=== PATIENT | male | born 1945 | race Caucasian/White ===

== ENCOUNTER 2017-12-07 06:53 | Day surgery (SDC) | payer MEDICARE, SELFPAY ==
[2017-12-07] VITALS (7 sets, daily range): BP systolic 104–158; BP diastolic 41–81; PULSE 60–70; RESP 16–18; TEMP 36.6–36.8; O2SAT 93–98; BMI 31.4
--- NOTE | 2017-12-07 | COLBX_PTH ---
PATIENT: KRYSTIAN CHILD LOC: EN U#:[id number] AGE/SX: 72/M ROOM: RE12/07/[address]: Dr. Bobby Felipe MD : 1945 BED: DIS: 12/07/2017 SPEC #: [id number] RECD: 12/07/17 14:33 STATUS: SHAMIKA REMaximiliano #: [id number] ALAN: 12/07/17 00:[address]: Bobby Felipe DEPT: SURGICAL PATHOLOGY RECD BY: Mike Rivera ENTERED: 12/07/17 14:34 SP TYPE: COLON BX OTHR DR: Dr. Florentin Marino DO Tissues: Rectum, NOS Procedures: Surgery Specimen Level IV HEADER OPERATION: Colonoscopy PRE-OP DIAGNOSIS: History colon polyps, family history colon cancer TISSUE SUBMITTED: Rectal polyp biopsy MICROSCOPIC DIAGNOSIS Rectal polyp, biopsy: Hyperplastic polyp. SJ:haresh 12/08/17 MICROSCOPIC DESCRIPTION Slides are reviewed. GROSS DESCRIPTION Received in fixative is one container labeled with the patient's name and designated biopsy rectum. The specimen consists of one irregular fragment of light hurley soft tissue that measures 0.5 x 0.3 x 0.1 cm. The specimen is totally submitted in one cassette. / SJ:haresh 12/07/17 TC:5 CPT: 90993
--- NOTE | 2017-12-07 07:55 | PCM.OPRPT ---
Problem List (1) Personal history of colonic polyps Status: Acute (2) Family history of colon cancer in father Status: Acute Report of Operation Date of Procedure: 12/07/17 Pre-Operative Diagnosis: z86.010 history of colonic polyps. z80.0 family history of colon cancer in father Post-Operative Diagnosis: Same Surgery/Procedure Performed:: Colonoscopy with polypectomy Type of Anesthesia:: MAC Anesthesiologist: Jorge Pruitt Description of Procedure: Patient was brought into the endoscopy suite placed in the left lateral decubitus position was given graded anesthesia colonoscope was inserted into the rectum and directed through the sigmoid colon, descending colon, transverse colon, ascending colon, to the cecum. Operative findings: 1. Cecum: Normal appearance no mass lesions normal ileocecal valve. 2. Ascending colon: Normal appearance no mass lesions. 3. Transverse colon: Normal appearance no mass lesions. 4. Descending colon: Normal appearance no mass lesions. 5. Sigmoid colon: Normal appearance no mass lesions 6. Rectum: Normal appearance small hyperplastic polyp was identified was removed with biopsy forceps in its entirety he had a few internal hemorrhoids otherwise the rectum was entirely normal. Scope was withdrawn digital rectal exam was performed showing no masses within the prostate and a smooth anus. Patient will need to have another colonoscopy in 3 years. - Admit VTE Documentation VTE Present on Admission: No VTE Mechan Device Prophylaxis: None VTE Pharm Prophylaxis ordered?: No Reason prophylaxis not ordered:: Treatment Not Indicated
== END 2017-12-07 08:36 | disposition home or self-care (01) ==
LOC: EN 06:54 → AC 07:08
PROVIDERS: Family Provider Family Medicine; PCP Family Medicine; Visit Provider Surgery
PROC: 0DJD8ZZ Inspection of Lower Intestinal Tract, Via Natural or Artificial Opening Endoscopic (ICD-10-PCS; CPT 45378; principal; 2017-12-07 07:55)
DX: Z12.11 Encounter for screening for malignant neoplasm of colon (principal); D12.8 Benign neoplasm of rectum; K64.8 Other hemorrhoids; Z86.010 Personal history of colon polyps; Z85.828 Personal history of other malignant neoplasm of skin; Z87.891 Personal history of nicotine dependence; Z80.0 Family history of malignant neoplasm of digestive organs
CPT/HCPCS: 45380; 88305; J7120

== ENCOUNTER → 2018-06-04 10:38 | Outpatient (CLI) | payer MEDICARE, SELFPAY ==
[2017-12-07 07:13] VITALS: BMI 31.4
--- NOTE | 2018-06-04 10:45 | RAD_ITS ---
STUDY: X-RAY - CERVICAL SPINE REASON FOR EXAM: Male, 72 years old. Neck pain radiating into the shoulders TECHNIQUE: 5 view(s) of the cervical spine were obtained. COMPARISON: None FINDINGS: Normal anterior atlantoaxial articulation. Normal odontoid process. Normal cervical lordosis. There is multi-level endplate spondylosis. There is multi-level degenerative disc disease with multilevel disc space narrowing with disc space narrowing most conspicuous at C5-C6 and C6-C7. Degenerative spondylolisthesis of C4-C5 likely due to facet arthropathy, measuring 2 mm. There is moderate foraminal stenosis bilaterally, right more than left. There are atherosclerotic vascular calcifications of the carotid arteries. RAD/Cerv Spine 4 or 5 Views IMPRESSION: Degenerative disc disease and facet arthropathy with right more than left foraminal stenosis. Electronically Signed: Florentin Arellano MD at 15:39 EST , Service support ,
--- NOTE | 2018-06-04 10:45 | RAD_ITS ---
STUDY: X-RAY - LUMBAR SPINE REASON FOR EXAM: Male, 72 years old. Increasing lower back pain over the last several years TECHNIQUE: 5 view(s) of the lumbar spine were obtained. COMPARISON: None FINDINGS: Normal lumbar lordosis. There is a dextroscoliosis (29 degrees) of the lumbar spine. There is a normal alignment of the vertebrae. There is multilevel endplate spondylosis of the lumbar vertebrae. There is multi-level degenerative disc disease with multi-level disc space narrowing. Moderate facet arthropathy at multiple levels particularly in the lower segments. There is no demonstrated spondylolysis of the pars interarticulares. No compression fracture. There is atherosclerotic calcification of the abdominal aorta without a demonstrated aneurysm. RAD/L/S Spine Min 4 Views IMPRESSION: Multilevel degenerative disc disease, spondylosis and facet arthropathy. Scoliosis. Electronically Signed: Florentin Arellano MD at 15:34 EST , Service support ,
[2018-06-04 12:24] LABS: Erythrocyte Sedimentation Rate 27 mm/hr (0-20)
[2018-06-04 12:28] LABS: Absolute Lymphocyte Count 1.68 X10^3/ul (0.83-4.51); Basophil# 0.02 X10^3/uL; Basophil% 0.4 % (0-1); Eosinophil# 0.21 X10^3/uL; Eosinophils% 3.9 % (0-5); Hematocrit 44.6 % (40-54); Hemoglobin 15.4 g/dl (13.0-16.5); Lymphocyte # 1.68 X10^3/ul (4.0); Lymphocyte % 31.5 % (19-41); Mean Corp Hgb Conc 34.5 g/gl (32-36); Mean Corpuscular Hgb 31.9 pg (27.0-32.0); Mean Corpuscular Volume 92.3 fL (80-94); Mean Platelet Vol. 11.4 fl (6.2-12.0); Monocyte# 0.44 X10^3/uL; Monocyte% 8.3 % (0-10); Neutrophil # 2.98 X10^3/uL (2.7-7.7); Neutrophil % 55.9 % (47-70); Platelet Count 183 K/mm3 (150-450); RBC Distribution Width CV 13.2 % (11.6-14.6); RBC Distribution Width SD 43.7 fl (35.1-43.9); Red Blood Count 4.83 M/mm3 (4.6-6.2); White Blood Count 5.3 K/mm3 (4.4-11.0)
[2018-06-04 12:32] LABS: POSITIVE COUNT NO; POSITIVE DIFFERENTIAL NO; POSITIVE MORPHOLOGY NO
[2018-06-04 12:41] LABS: Hemoglobin A1c 5.9 % (4.2-6.3)
[2018-06-04 12:50] LABS: AST(SGOT) 16 U/L (15-37); Alanine Aminotransfer ALT/SGPT 28 U/L (16-61); Albumin, Serum 3.9 g/dL (3.2-5.0); Alkaline Phosphatase 57 U/L (45-117); Anion Gap 9 (5-15); BUN 16 mg/dL (7-18); BUN/Creat Ratio 13.9 RATIO (10-20); CPK Total, Creatine Kinase 151 U/L (39-308); CRP < 2.90 mg/L (0.0-3.0); Calcium,Total 9.4 mg/dL (8.5-10.1); Chloride 106 mmol/L (98-107); Cholesterol 216 mg/dL (200); Creatinine, Serum 1.15 mg/dL (0.70-1.30); EST Glomerular Filtration Rate 66 mL/min (>60); Est Glom Filt Rate - Afr Amer 80 mL/min (>60); Globulin 3.8 g/dL (2.2-4.2); Glucose 95 mg/dL (74-106); High Density Lipoprotein 33 mg/dL; Potassium 4.3 mmol/L (3.5-5.1); Protein, Total 7.7 g/dL (6.4-8.2); Sodium Level 140 mmol/L (136-145); Triglycerides 242 mg/dL; Very Low Density Lipoprotein 48 mg/dL (5-40)
[2018-06-08 08:08] LABS: Testosterone, Free 7.98 ng/dL (5.00-21.00)
[2018-06-10 09:24] LABS: Testosterone, % Free 1.75 % (1.50-4.20); Testosterone, Total 456 ng/dL (264-916)
== END ==
PROVIDERS: Family Provider Family Medicine; PCP Family Medicine; Referring Provider Family Medicine; Visit Provider Family Medicine
DX: M54.2 Cervicalgia (principal); M54.5 Low back pain; M25.50 Pain in unspecified joint; R25.2 Cramp and spasm; R10.9 Unspecified abdominal pain; R53.83 Other fatigue; E78.5 Hyperlipidemia, unspecified; R73.9 Hyperglycemia, unspecified
CPT/HCPCS: 36415; 72050; 72110; 80053; 80061; 82550; 83036; 84402; 84403; 85025; 85652; 86140

== ENCOUNTER → 2018-06-16 06:13 | Outpatient (CLI) | payer MEDICARE, SELFPAY ==
--- NOTE | 2018-06-16 12:31 | STRESSREP ---
Stress Test Report Pharmacologic myocardial perfusion stress test. 72-year-old man with a history of chest pain Stress protocol: Resting EKG demonstrates normal sinus rhythm with a rate of 63 bpm normal intervals are noted resting blood pressure 168/104 mmHg. 0.4 mg of regadenoson was infused per usual protocol followed by rapid intravenous saline flush injection continuous EKG monitoring was performed. The patient maintained sinus rhythm throughout the recording. At rest there were no ST or T wave changes noted suggest abnormal flow reserve the maximum heart rate was 141 bpm which was 96% of maximum predicted heart rate. Resting blood pressure was 160-104 mmHg final blood pressure 170/88 mmHg. The above is suggestive of resting hypertension present. Myocardial perfusion protocol. 14.6 mCi of technetium 99m sestamibi was injected at rest. 0.4 mg of regadenoson was infused per usual protocol. At peak infusion 44.5 mCi of technetium 99m sestamibi was injected stress images were obtained stress and rest images were reconstructed and compared in the short axis vertical and horizontal long axis. Gated images were also obtained Perfusion SPECT analysis: Review of the images demonstrate normal cardiac silhouette size. There appears to be normal uptake of tracer noted in all areas of myocardium except for the basal inferior wall. This appears to be present on the stress and rest images to a similar extent. There is some GI attenuation artifact noted there as well. There is minimal improvement on the stress images suggesting possible mild basal inferior ischemia. Gated SPECT analysis: The gated ejection fraction is noted to be normal. Conclusion: Mildly abnormal pharmacologic myocardial perfusion stress test with possible basal inferior ischemia. Preserved ejection fraction
--- OUTSIDE RECORDS SUMMARY | 2018-08-18 01:32 | XMS RPT_ITS ---
:1945 Author Organization OH[facility] Care Team Providers Name Role Phone Florentin Marino Attending Unavailable Florentin Marino Referring Unavailable Florentin Marino Primary Care Unavailable Florentin Marino Attending Unavailable Florentin Marino Referring Unavailable Florentin Marino Primary Care Unavailable Bobby Felipe Attending Unavailable Florentin Marino Referring Unavailable Florentin Marino Primary Care Unavailable Bobby Felipe Attending Unavailable Bobby Felipe Referring Unavailable Florentin Marino Primary Care Unavailable Bobby Felipe Attending Unavailable Florentin Marino Referring Unavailable Bobby Felipe Attending Unavailable Florentin Marino Referring Unavailable Bobby Felipe Attending Unavailable PROBLEMS PROBLEMS DATE TYPE CONDITION / CODE ATTENDING STATUS SOURCE 06/04/2018 Unknown M54.2 - Florentin Marino Active [facility] Cervicalgia / Community M54.2(ICD-10) Hospital Repository 06/04/2018 Unknown M54.5 - Low back Jamila, Florentin Active [facility] pain / Community M54.5(ICD-10) Hospital Repository 06/04/2018 Unknown M25.50 - Pain in Florentin Marino Active [place] unspecified joint Community / M25.50(ICD-10) Hospital Repository 06/04/2018 Unknown R25.2 - Cramp and Florentin Marino Active [facility] spasm / Community R25.2(ICD-10) Hospital Repository 06/04/2018 Unknown R10.9 - JamilaFlorentin tong Active [place] Unspecified Community abdominal pain / Hospital R10.9(ICD-10) Repository 06/04/2018 Unknown R53.83 - Other Florentin Marino Active [facility] fatigue / Community R53.83(ICD-10) Hospital Repository 06/04/2018 Unknown E78.5 - Florentin Marino Active [place] Hyperlipidemia, Community unspecified / Hospital E78.5(ICD-10) Repository 06/04/2018 Unknown R73.9 - Florentin Marino Active [facility] Hyperglycemia, Community unspecified / Hospital R73.9(ICD-10) Repository 01/08/2018 Unknown Z86.010 - Bobby Felipe Active [facility] Personal history Community of colonic polyps Hospital / Z86.010(ICD-10) Repository 01/08/2018 Unknown Z80.0 - Family Bobby Felipe Active [facility] history of [facility] neoplasm of Repository digestive organs / Z80.0(ICD-10) PROCEDURES PROCEDURES No Procedure Records FoundRESULTS RESULTS STRESS REPORT Observed: 06/16/2018 Status: F Source: [place] 12:34 PM [facility] REPOSITORY [facility] Cardiovascular Services [address] [place] [address] MR#: [id number] Acct: [id number] Name: KRYSTIAN CHILD Rep #: [id number] : 1945 72 From: Chin Stubbs MD Primary Care: Jamila RODFlorentin Status: REG CLI Ordering Dr: Onel: Evangelina C Stress Test Report Pharmacologic myocardial perfusion stress test. 72-year-old man with a history of chest pain Stress protocol: Resting EKG demonstrates normal sinus rhythm with a rate of 63 bpm normal intervals are noted resting blood pressure 168/104 mmHg. 0.4 mg of regadenoson was infused per usual protocol followed by rapid intravenous saline flush injection continuous EKG monitoring was performed. The patient maintained sinus rhythm throughout the recording. At rest there were no ST or T wave changes noted suggest abnormal flow reserve the maximum heart rate was 141 bpm which was 96% of maximum predicted heart rate. Resting blood pressure was 160-104 mmHg final blood pressure 170/88 mmHg. The above is suggestive of resting hypertension present. Myocardial perfusion protocol. 14.6 mCi of technetium 99m sestamibi was injected at rest. 0.4 mg of regadenoson was infused per usual protocol. At peak infusion 44.5 mCi of technetium 99m sestamibi was injected stress images were obtained stress and rest images were reconstructed and compared in the short axis vertical and horizontal long axis. Gated images were also obtained Perfusion SPECT analysis: Review of the images demonstrate normal cardiac silhouette size. There appears to be normal uptake of tracer noted in all areas of myocardium except for the basal inferior wall. This appears to be present on the stress and rest images to a similar extent. There is some GI attenuation artifact noted there as well. There is minimal improvement on the stress images suggesting possible mild basal inferior ischemia. Gated SPECT analysis: The gated ejection fraction is noted to be normal. Conclusion: Mildly abnormal pharmacologic myocardial perfusion stress test with possible basal inferior ischemia. Preserved ejection fraction 06/16/18 1234 <Electronically signed by Chin Stubbs MD> Date Chin Stubbs MD CC: Florentin Marino DO Date Dictated: 06/16/18 1231 Date Transcribed: 06/16/18 1231 Tank Maker Wood: CO Signed ERYTHROCYTE SED RATE Collected: 06/04/2018 Status: F Source: [place] 10:52 AM [facility] [place] TYPE CODE TESTS RESULT OUT OF RANGE REFERENCE UNITS LAB L102.0000 0-20 mm/hr High SED RATE 27 Performed By: #### L101.9900, L100.0100 #### [facility] [address] [place], [address] CBC W/DIFF, AUTOMATED Collected: 06/04/2018 Status: F Source: [place] 10:52 AM [facility] [place] TYPE CODE TESTS RESULT OUT OF RANGE REFERENCE UNITS LAB L100.1000 4.4-11.0 K/mm3 Normal WBC 5.3 LAB L100.1200 4.6-6.2 M/mm3 Normal RBC 4.83 LAB L100.1300 13.0-16.5 g/dl Normal HGB 15.4 LAB L100.1400 40-54 % Normal HCT 44.6 LAB L100.1500 80-94 fL Normal MCV 92.3 LAB L100.1600 27.0-32.0 pg Normal MCH 31.9 LAB L100.1700 32-36 g/gl Normal MCHC 34.5 LAB L100.1810 11.6-14.6 % Normal RDW CV 13.2 LAB L100.1820 35.1-43.9 fl Normal RDW SD 43.7 LAB L100.1900 150-450 K/mm3 Normal PLT 183 LAB L100.2000 6.2-12.0 fl Normal MPV 11.4 LAB L100.2100 47-70 % Normal NEUT% 55.9 LAB L100.2200 19-41 % Normal LY% 31.5 LAB L100.2300 0-10 % Normal MONO% 8.3 LAB L100.2400 0-5 % Normal EO% 3.9 LAB L100.2500 0-1 % Normal BASO% 0.4 LAB L100.2550 0.0-0.9 % Normal IM GRAN % 0.000 Result Comment: IG% - Immature Granulocytes (promyelocytes, myelocytes and metamyelocytes) > 1% indicates that a LEFT SHIFT is Present. LAB L100.2620 2.0-7.7 X10 3/uL Normal Absolute Neut 3.0 LAB L100.2720 0.83-4.51 X10 3/ul Normal Absolute Lymph 1.68 Performed By: #### L101.9900, L100.0100 #### [facility] [address] [place], [place], [address] HEMOGLOBIN A1C Collected: 06/04/2018 Status: F Source: [place] 10:52 AM [facility] [place] TYPE CODE TESTS RESULT OUT OF RANGE REFERENCE UNITS LAB L501.9985 4.2-6.3 % Normal HGB A1C 5.9 Performed By: #### L501.9985 #### [facility] [place], [address] COMPREHENSIVE METABOLIC Collected: 06/04/2018 Status: F Source: [place] 10:52 AM [facility] [place] TYPE CODE TESTS RESULT OUT OF RANGE REFERENCE UNITS LAB L501.0100 74-106 mg/dL Normal GLU 95 Result Comment: Please note revised GLUCOSE reference range effective 2017. LAB L501.1000 7-18 mg/dL Normal BUN 16 LAB L501.1100 0.70-1.30 mg/dL Normal CREAT,SERUM 1.15 Result Comment: The validity of the calculated GFR AND GFRAA in patients over 70 years has not been determined. Clinical correlation is essential. LAB L501.1110 >60 mL/min Normal EST GFR 66 Result Comment: Non- GFR Calc LAB L501.1115 >60 mL/min Normal EST GFR - AA 80 Result Comment: GFR Calc LAB L501.1300 10-20 RATIO Normal BUN/CRE 13.9 LAB L501.1500 6.4-8.2 g/dL T Normal PROT 7.7 LAB L501.1800 3.2-5.0 g/dL Normal ALB 3.9 LAB L501.1950 2.2-4.2 g/dL Normal GLOB 3.8 LAB L501.2000 0.9-2.4 RATIO Normal A/G 1.0 LAB L501.2200 8.5-10.1 mg/dL CA Normal 9.4 LAB L501.4100 15-37 U/L Normal AST 16 LAB L501.4305 45-117 U/L Normal ALK P 57 LAB L501.4405 16-61 U/L Normal ALT 28 LAB L501.4600 0.20-1.00 mg/dL T Normal BILI 0.40 LAB L501.5300 136-145 mmol/L NA Normal 140 LAB L501.5600 3.5-5.1 mmol/L K Normal 4.3 LAB L501.5900 98-107 mmol/L CL Normal 106 LAB L501.6100 21.0-32.0 mmol/L Normal CO2 25.0 LAB L501.6200 5-15 Normal GAP 9 Performed By: #### L500.4050, L500.4100, L501.3620, L501.6710 #### [facility] [address] [place], [place], [id number] LIPID PROFILE Collected: 06/04/2018 Status: F Source: [place] 10:52 AM [facility] [place] TYPE CODE TESTS RESULT OUT OF RANGE REFERENCE UNITS LAB L501.4900 200 mg/dL High CHOL 216 Result Comment: <200 mg/dL Desirable 200-240 mg/dL Borderline >240 mg/dL High Risk LAB L501.5000 mg/dL High TRIG 242 Result Comment: The drugs N-Acetylcysteine and Metamizole may falsely depress this assay. Serum Triglycerides Reference Interval Normal <150 mg/dL Borderline high 150 - 199 mg/dL High 200 - 499 mg/dL Very High > or = 500 mg/dL LAB L501.6400 mg/dL Low HDL 33 Result Comment: The drugs N-Acetylcysteine and Metamizole may falsely depress this assay. Reference Range HDL <40 mg/dL Low HDL Cholesterol HDL >or= 60 mg/dL High HDL Cholesterol LAB L501.6500 0-130 mg/dL High LDL 135 LAB L501.6600 5-40 mg/dL High VLDL 48 Performed By: #### L500.4050, L500.4100, L501.3620, L501.6710 #### [facility] [address] [place], [place], [id number] CPK TOTAL, CREATINE Collected: 06/04/2018 Status: F Source: [place] 10:52 AM [facility] [place] TYPE CODE TESTS RESULT OUT OF RANGE REFERENCE UNITS LAB L501.3620 39-308 U/L Normal CPK TOTAL 151 Performed By: #### L500.4050, L500.4100, L501.3620, L501.6710 #### [facility] [address] [place], [address] CRP Collected: 06/04/2018 Status: F Source: [place] 10:52 AM [facility] [place] TYPE CODE TESTS RESULT OUT OF RANGE REFERENCE UNITS LAB L501.6710 0.0-3.0 mg/L Normal < 2.90 C-REACTIVE PROT Result Comment: C-Reactive Protein (CRP) provides useful information for the diagnosis, therapy and monitoring of inflammatory processes and associated diseases. For the evaluation of Relative Risk for Cardiovascular Disease, a High Sensitivity CRP (HSCRP) should be ordered. Performed By: #### L500.4050, L500.4100, L501.3620, L501.6710 #### [facility] [address] [place], [address] TESTOSTERONE, TOTAL / Collected: 06/04/2018 Status: F Source: [place] 10:52 AM [facility] [place] Order Comment: Has Patient had X-rays with Contrast this admission? N TYPE CODE TESTS RESULT OUT OF RANGE REFERENCE UNITS LAB L3100.5320 264-916 ng/dL Normal 456 TESTOSTER,TO JESSIKA Result Comment: Adult male reference interval is based on a population of healthy nonobese males (BMI <30) between 19 and 39 years old. Ricardo et.al. JCEM 2017,102;1876-6237. PMID: [id number]. LAB L3100.5340 5.00-21.00 ng/dL TESTOSTER,FREE Normal 7.98 LAB L3100.5360 1.50-4.20 % TESTOSTER %FREE Normal 1.75 Result Comment: Performed at: - [facility] [address] [id number] Car Rental Deliverer: Josiah Patiño PhD, Phone: [phone] Performed at: - [facility] [address] [id number] Car Rental Deliverer: Kim Brito MD, Phone: [phone] Performed By: #### L3100.5310 #### [facility] (refer to report for specific site) refer to report for address and phone number L/S SPINE MIN 4 Observed: 06/04/2018 Status: F Source: [place] 10:45 AM [facility] [place] [facility] Imaging Services [address] [place] [address] L/S Spine Min 4 Views MR#: [id number] Acct: [id number] Name: CHEKOMadinaKRYSTIAN Rep #: [id number] : 1945 M 72 From: Florentin Arellano MD PCP: Florentin Marino DO Status: REG CLI Study: L/S Spine Min 4 Views Date of Exam: 06/04/18 Exam# [id number] Ordering Dr: Florentin Marino DO STUDY: X-RAY - LUMBAR SPINE REASON FOR EXAM: Male, 72 years old. Increasing lower back pain over the last several years TECHNIQUE: 5 view(s) of the lumbar spine were obtained. COMPARISON: None FINDINGS: Normal lumbar lordosis. There is a dextroscoliosis (29 degrees) of the lumbar spine. There is a normal alignment of the vertebrae. There is multilevel endplate spondylosis of the lumbar vertebrae. There is multi-level degenerative disc disease with multi-level disc space narrowing. Moderate facet arthropathy at multiple levels particularly in the lower segments. There is no demonstrated spondylolysis of the pars interarticulares. No compression fracture. There is atherosclerotic calcification of the abdominal aorta without a demonstrated aneurysm. RAD/L/S Spine Min 4 Views IMPRESSION: Multilevel degenerative disc disease, spondylosis and facet arthropathy. Scoliosis. Electronically Signed: Florentin Arellano MD at 15:34 EST , Service support , CC: Florentin Marino DO Tank Maker Wood: Signed CERV SPINE 4 OR 5 Observed: 06/04/2018 Status: F Source: [place] 10:45 AM [facility] [place] [facility] Imaging Services [address] [place] [address] Cerv Spine 4 or 5 Views MR#: [id number] Acct: [id number] Name: KRYSTIAN CHILD Rep #: [id number] : 1945 M 72 From: Florentin Arellano MD PCP: Florentin Marino DO Status: REG CLI Study: Cerv Spine 4 or 5 Views Date of Exam: 06/04/18 Exam# [id number] Ordering Dr: Florentin Marino DO STUDY: X-RAY - CERVICAL SPINE REASON FOR EXAM: Male, 72 years old. Neck pain radiating into the shoulders TECHNIQUE: 5 view(s) of the cervical spine were obtained. COMPARISON: None FINDINGS: Normal anterior atlantoaxial articulation. Normal odontoid process. Normal cervical lordosis. There is multi-level endplate spondylosis. There is multi-level degenerative disc disease with multilevel disc space narrowing with disc space narrowing most conspicuous at C5- C6 and C6-C7. Degenerative spondylolisthesis of C4-C5 likely due to facet arthropathy, measuring 2 mm. There is moderate foraminal stenosis bilaterally, right more than left. There are atherosclerotic vascular calcifications of the carotid arteries. RAD/Cerv Spine 4 or 5 Views IMPRESSION: Degenerative disc disease and facet arthropathy with right more than left foraminal stenosis. Electronically Signed: Florentin Arellano MD at 15:39 EST , Service support , CC: Florentin Marino DO Tank Maker Wood: Signed SURGERY VISIT REPORT Observed: 12/22/2017 Status: F Source: [place] 10:46 AM [facility] [address] [place] [address] [address] [place] [address] OFFICE VISIT Date of Service: 12/22/17 MR#: [id number] Acct: [id number] Name: KRYSTIAN CHILD Rep #: [id number] : 1945 Provider: Bobby Felipe MD Age/Sex: 72/M Location: [facility] Status: Signed Intake Intake Visit Reasons: F/U C-Scope 12/07 DP Floorleader Required: No Is patient in pain?: No Allergies No Known Allergies Allergy (Verified 12/22/17 08:33) Medications cholecalciferol (vitamin D3) 1,000 unit capsule 1,000 unit PO QDAY 12/01/17 [History Confirmed 12/22/17] magnesium oxide 400 mg capsule 400 mg PO QDAY cap 12/01/17 [History Confirmed 12/22/17] PFSH Surgical History History of appendectomy (Acute) Hx of colonoscopy (Acute) Family History Father Colon cancer Mother Diabetes Heart disease Hypertension CAD (coronary artery disease) CVA (cerebral vascular accident) Brother CVA (cerebral vascular accident) Social History Smoking Status: Former smoker alcohol intake: never HPI HPI HPI: KRYSTIAN CHILD, is a 72 M who presents to the office today for status post a colonoscopy on 12/07/2017. Patient underwent a colonoscopy for family history of colon cancer and a personal history of colonic polyps. He was noted to have a hyperplastic polyp identified in the rectum which was removed completely and pathology confirmed such I have recommended that he undergo a repeat colonoscopy in 3 years. Patient also complains of a dull fullness in the right lower quadrant area this is where he had a previous open appendectomy. He notices it mostly in the morning and is less so when he has been up and moving about. Exam GI Other: The patient scar in the right lower quadrant is firm with no signs of herniations. No real tenderness to palpation. Assessment AND Plan Problems 1. Hyperplastic colonic polyp, unspecified part of colon K63.5 2. Right lower quadrant abdominal pain R10.31 Plan This point the patient will need another colonoscopy in 3 years. With regards to the discomfort in the right lower quadrant I think this is all scar tissue related secondary to his open appendectomy I have instructed him to work on core muscle groups and stretching but no surgical issues are identified at this time. Coding Level of Care Code Off vis,est,level 2 Diagnoses Hyperplastic colonic polyp, unspecified part of colon K63.5 Colon polyp type: hyperplastic Colon location: unspecified part of colon Right lower quadrant abdominal pain R10.31 12/22/17 1046 <Electronically signed by Bobby Felipe MD> Date [facility] Signature: Date (if applicable) CC: Florentin Jamila ROD OPERATIVE REPORT Observed: 12/07/2017 Status: F Source: [place] 7:59 AM [facility] [place] [facility] Medical Records Department [address] [place] [address] Operative Report 12/07/17 0755 MR#: [id number] Acct: [id number] Name: KRYSTIAN CHILD Rep #: [id number] : 1945 72 From: Bobby Felipe MD PCP: Florentin Marino DO Status: REG [facility] Location: [place] [address] Problem List (1) Personal history of colonic polyps Status: Acute (2) Family history of colon cancer in father Status: Acute Report of Operation Date of Procedure: 12/07/17 Pre-Operative Diagnosis: z86.010 history of colonic polyps. z80.0 family history of colon cancer in father Post-Operative Diagnosis: Same Surgery/Procedure Performed:: Colonoscopy with polypectomy Type of Anesthesia:: MAC Anesthesiologist: Jorge Pruitt Description of Procedure: Patient was brought into the endoscopy suite placed in the left lateral decubitus position was given graded anesthesia colonoscope was inserted into the rectum and directed through the sigmoid colon, descending colon, transverse colon, ascending colon, to the cecum. Operative findings: 1. Cecum: Normal appearance no mass lesions normal ileocecal valve. 2. Ascending colon: Normal appearance no mass lesions. 3. Transverse colon: Normal appearance no mass lesions. 4. Descending colon: Normal appearance no mass lesions. 5. Sigmoid colon: Normal appearance no mass lesions 6. Rectum: Normal appearance small hyperplastic polyp was identified was removed with biopsy forceps in its entirety he had a few internal hemorrhoids otherwise the rectum was entirely normal. Scope was withdrawn digital rectal exam was performed showing no masses within the prostate and a smooth anus. Patient will need to have another colonoscopy in 3 years. - Admit VTE Documentation VTE Present on Admission: No VTE Mechan Device Prophylaxis: None VTE Pharm Prophylaxis ordered?: No Reason prophylaxis not ordered:: Treatment Not Indicated 12/07/17 0759 <Electronically signed by Bobby Felipe MD> Date Bobby Felipe MD CC: Bobby Felipe MD; Florentin Marino Signed COLON BIOPSY (CHOOSE Observed: 12/07/2017 Status: F Source: [facility]) 12:00 AM [facility] [place] Patient: KRYSTIAN CHILD : 1945 (72/M) Acct Num: [id number] Phys: Matteo NAVARRETE,Bobby Unit Num: [id number] Loc: EN Specimen: [id number] Received: 12/07/171432 Spec Type: COLON BX TISSUES TISSUES: Rectum, NOS GROSS DESCRIPTION Received in fixative is one container labeled with the patient's name and designated biopsy rectum. The specimen consists of one irregular fragment of light hurley soft tissue that measures 0.5 x 0.3 x 0.1 cm. The specimen is totally submitted in one cassette. / SJ:haresh 12/07/17 TC:5 CPT: 31580 HEADER OPERATION: Colonoscopy PRE-OP DIAGNOSIS: History colon polyps, family history colon cancer TISSUE SUBMITTED: Rectal polyp biopsy MICROSCOPIC DESCRIPTION Slides are reviewed. MICROSCOPIC DIAGNOSIS Rectal polyp, biopsy: Hyperplastic polyp. SJ:haresh 12/08/17 Signed Papi Osborne 12/08/17 <signature on file> Performed By: #### PCOLBX #### [facility] [address] [facility] [place], [place], [id number] SURGERY VISIT REPORT Observed: 12/01/2017 Status: F Source: [place] 7:53 AM [facility] [place] [facility] [address] [place] [address] OFFICE VISIT Date of Service: 12/01/17 MR#: [id number] Acct: [id number] Name: KRYSTIAN CHILD Rep #: [id number] : 1945 Provider: Bobby Felipe MD Age/Sex: 72/M Location: [facility] Status: Signed Intake Vital Signs12/01/17 Height 5 ft 10 in 12/01/17 Weight: 217 lb 12/01/17 Body Mass Index (BMI) 31.1 Intake Visit Reasons: 3 YEAR F/U POLYPS Floorleader Required: No Allergies No Known Allergies Allergy (Unverified 12/01/17 07:42) Medications cholecalciferol (vitamin D3) 1,000 unit capsule 1,000 unit PO QDAY 12/01/17 [History Confirmed 12/01/17] magnesium oxide 400 mg capsule 400 mg PO QDAY cap 12/01/17 [History Confirmed 12/01/17] PFSH Surgical History History of appendectomy (Acute) Hx of colonoscopy (Acute) Family History Father Colon cancer Mother Diabetes Heart disease Hypertension CAD (coronary artery disease) CVA (cerebral vascular accident) Brother CVA (cerebral vascular accident) Social History Smoking Status: Former smoker alcohol intake: never HPI HPI HPI: KRYSTIAN CHILD, is a 72 M who presents to the office today for evaluation for colonoscopy. Patient has a very strong family history of colon cancer with his father being diagnosed at the age 60 with stage IV colon cancer. His most recent colonoscopy was on 10/23/2014. At that time he had a polyp in the mid ascending colon which was found to be a tubular adenoma. Patient has had no change in his health history moving his bowels regularly not having any change in his weight ROS General General: No weight change, appetite, fatigue, colon cancer, breast cancer or weakness HEENT HEENT: No difficulty swallowing, eye injury, eye surgery, swollen glands or hoarseness Endo Endocrine: No thyroid disease, diabetes mellitus, thyroid cancer, Hair loss, heat intolerance or cold intolerance Skin Skin: Yes changing moles; no rash Breast Breast: No left breast lump, right breast lump, nipple discharge, breast pain, abnormal mammogram, abnormal US or breast enlargement Musc Musculoskeletal: No back problems, arthritis, rheumatoid arthritis, gout or joint pain Cardio Cardiovascular: No murmur, pacemaker, heart disease, atrial fibrillation, high blood pressure, heart attack, heart stent, palpitations, shortness of breat with exertion or chest pain Psych Psychiatric: No depression, anxiety or hearing voices Resp Respiratory: No shortness of breath, No sleep apnea, No cough, No COPD, No asthma, No emphysema, No wheezing Gastro Gastrointestinal: No abdominal pain, No nausea or vomiting, No diarrhea, No constipation, No blood in stool, No acid reflux, No hemorrhoids, No ulcers, No gallbladder problem, No black,tarry stools Willam Hematologic: No blood thinners, No blood disorders, No bleeding, No anemia, No blood clots Neuro Neurologic: No system reviewed and no additional complaints, except as docu, No as per HPI, No abnormal walking, No abnormal hearing, No abnormal movements, No abnormal speech, No behavioral changes, No burning sensations, No confusion, No seizure-like activity, No unsteadiness, No dizziness, No localized weakness, No frequent falls, No headache(s), No lack of coordination, No loss of vision, No memory loss, No numbness, No other visual disturbances, No radiating pain, No restless legs, No sensory deficit, No fainting, No tingling, No tremor(s), No weakness, No other Exam Const General: well developed, no acute distress, well hydrated Orientation: oriented to person, oriented to place, oriented to time [facility] Head: normocephalic, atraumatic Ears: external ears normal Mouth: moist mucous membranes Eyes Sclera: sclerae normal Pupils: normal by confrontation Neck Neck: no lymphadenopathy noted Neck mass: No Thyroid: symmetrical, thyroid normal Chest Chest palpation AND inspection: normal inspection of the chest Breast Palpation: No nipple discharge Resp Effort AND Inspection: normal respiratory effort Auscultation: clear to auscultation bilaterally Percussion: percussion normal Cardio Rate: regular rate Rhythm: regular rhythm Heart Sounds: no murmurs GI Palpation: soft, no masses, no hepatosplenomegaly, nontender Rectal Exam: other Other: Rectal exam deferred. Extrem General: no clubbing, cyanosis or edema, normal to inspection Assessment AND Plan Problems 1. History of colon polyps Z86.010 2. Family history of colon cancer in father Z80.0 Plan I have discussed the above with the patient. I have offered the patient colonoscopy for evaluation. I have explained the risks/benefits of the procedure and described the procedure. I have discussed the risks with the patient, including but not limited to: infection, bleeding, perforation of the GI tract requiring emergency surgery, inability to complete the procedure, injury to any internal organs, complications of anesthesia, etc. - the patient understands and agrees to proceed. I have answered all the patient's questions to the patient's satisfaction and the patient has no further questions. The patient has been given instructions for the colon cleansing preparation. Coding Level of Care Code Off vis,new,level 3 Diagnoses History of colon polyps Z86.010 Family history of colon cancer in father Z80.0 12/01/17 0753 <Electronically signed by Bobby Felipe MD> Date Bobby Felipe MD Cosigner Signature: Date (if applicable) CC: Florentin Marino DO ALLERGIES ALLERGIES DATE TYPE / CODE NAME / CODE REACTION SEVERITY SOURCE 12/22/2017 Drug No Known Unknown Yo [facility] Allergy/4160 Allergies/F00 [facility] [address](SNOMED [id number](RXNOR Repository CT) M) ENCOUNTERS ENCOUNTERS ADMIT/DISCHARGE ACCOUNT ADMITTING ENCOUNTER LOCATION SOURCE NUMBER CLASS 06/16/2018 [id number] [place] [facility] ing:[facility] Repository 06/04/2018 [id number] [place] [facility] ing:[facility] Repository 12/22/2017/ [id number] Ambulatory BMSBuilding:B [place] 8 2 [facility] Repository 12/16/2017 [id number] Ambulatory BMSBuilding:B [place] [facility] Repository 12/07/2017/ [id number] [place] 9 [facility] ing:EN Repository 12/07/2017 [id number] Ambulatory BMSBuilding:B [place] 5 [place].[facility] Repository 12/01/2017/ [id number] Ambulatory BMSBuilding:B [place] 8 0 [facility] Repository PAYERS PAYERS ENCOUNTER GUARANTOR PAYER SUBSCRIBER SOURCE 06/16/2018 KRYSTIAN J [id number] Primary KRYSTIAN J PTAKDOB: [place] Insurance:[facility] [id number] [place] [facility] [address]Tel: [phone] Number: Repository [phone] () [id number] Date:[id number] [address] [place] [id number]: 06/16/2018 Secondary NOT GIVENUNK [place] Insurance:SELF PAY [facility] Number: Effective Repository Date:2018-06-14 06/04/2018 KRYSTIAN J [id number] Primary KRYSTIAN J PTAKDOB: [place] Insurance:[facility] [id number] [place] [facility] [address]Tel: [phone] Number: Repository [phone] () [id number] Date:[id number] [address] [place] [id number]: 06/04/2018 Secondary NOT GIVENUNK [place] Insurance:SELF PAY [facility] Number: Effective Repository Date:2018-06-04 12/22/2017 KRYSTIAN J [id number] Primary KRYSTIAN J PTAKDOB: [place] Insurance:[facility] [id number] [place] [facility] [address]Tel: [phone] Number: Repository [phone] () [id number] Date:5935-50-46VU [address] [place] [phone]: 12/22/2017 Secondary NOT GIVENUNK [place] Insurance:SELF PAY [facility] Number: Effective Repository Date:2017-12-22 12/16/2017 KRYSTIAN J [id number] Primary KRYSTIAN J PTAKDOB: [place] Insurance:[facility] [id number] [place] [facility] [address]Hcm: [phone] Number: Repository [phone] () [id number] Date:[id number] [address] [address]PC: 12/16/2017 Secondary NOT GIVENUNK [place] Insurance:SELF PAY [facility] Number: Effective Repository Date:2017-12-10 12/07/2017 KRYSTIAN J [id number] Primary KRYSTIAN J PTAKDOB: [place] Insurance[place] [id number] [place] [facility] [address]Urq: [phone] Number: Repository [phone] () [id number] Date:[id number] [address] [address]BF: 12/07/2017 Secondary NOT GIVENUNK [place] Insurance:SELF PAY [facility] Number: Effective Repository Date:2017-12-02 12/07/2017 KRYSTIAN J [id number] Primary KRYSTIAN J PTAKDOB: [place] Insurance:[employer] [id number] [place] [facility] [address]Mxg: [phone]) Number: Repository [phone] () [id number] Date:[id number] [address] [address]TS: 12/07/2017 Secondary NOT GIVENUNK [place] Insurance:SELF PAY [facility] Number: Effective Repository Date:2017-12-07 12/01/2017 KRYSTIAN J [id number] Primary KRYTSIAN J PTAKDOB: [place] Insurance:[employer] [id number] [place] [facility] [address]Lbs: [phone] Number: Repository [phone] () [id number] Date:[id number] [address] [address]QT: 12/01/2017 Secondary NOT GIVENUNK [place] Insurance:SELF PAY [facility] Number: Effective Repository Date:2017
== END ==
PROVIDERS: Family Provider Family Medicine; PCP Family Medicine; Referring Provider Family Medicine; Visit Provider Family Medicine
DX: R07.9 Chest pain, unspecified (principal); I25.10 Atherosclerotic heart disease of native coronary artery without angina pectoris
CPT/HCPCS: 78452; 93017; A9500; A4216; J2785

== ENCOUNTER 2018-06-25 06:31 | Day surgery (SDC) | payer MEDICARE, SELFPAY ==
[2018-06-23 09:52] VITALS: BMI 32.3
--- NOTE | 2018-06-23 11:08 | RAD_ITS ---
STUDY: X-RAY CHEST REASON FOR EXAM: Male, 72 years old. Chest pain. Abnormal stress test. Preheart catheterization. TECHNIQUE: PA and lateral views of the chest. COMPARISON: None. FINDINGS: The lungs are mildly hyperexpanded. There is no focal mass or infiltrate. There is no demonstrated pleural abnormality. Normal size heart. Normal mediastinum and caren. Normal visualized pulmonary arteries. Normal visualized aortic arch and descending thoracic aorta. There are diffuse degenerative changes of the visualized thoracic spine. There is degenerative osteoarthritis of the bilateral shoulders. There is no demonstrated abnormality of the visualized soft tissue structures of the upper abdomen. RAD/Chest PA and Lateral IMPRESSION: No acute cardiopulmonary disease. Electronically Signed: Rodrigue Stoddard DO at 23:07 EST Tel [phone], Service support ,
[2018-06-24 08:04] VITALS: BMI 32.3
--- NOTE | 2018-06-25 09:53 | CL.D_ITS ---
Patient Name: KRYSTIAN CHILD Study Date: 06/25/2018 Performing: Chin Stubbs MD Ht: 70.07 inches 178 cm : 1945 Wt: 224.87 lbs 102 kg Age: 72 Gender: male BSA: 2.2 PROCEDURE(S) PERFORMED RP72-CPY/COR/LV CLINICAL PROFILE AND INDICATIONS Indications: Stable Known CAD Heart Failure: None Stress/Imaging Stress Test w/SPECT MPI: Yes Result: NegativeStress Test with SPECT MPI: Negative CONCLUSIONS Triple-vessel disease involving a distal left main, proximal left anterior descending artery and diag onal vessel, and total right coronary artery. RECOMMENDATIONS Surgery consult for coronary revascularization DESCRIPTION OF PROCEDURE The patient arrived to the procedure lab. The risks and benefits of the procedure as well as a full d escription of our services here and current unavailability of surgical backup were fully explained to the patient and/or their significant other prior to the catheterization. The Timeout was completed, verifying the correct patient and procedure. The patient's procedural site was prepped and draped in the usual fashion. Local anesthetic was given subcutaneously to right groin region with Lidocaine 2%. Using a modified Seldinger technique, arterial access was obtained via the right femoral artery, a 5 Fr sheath was inserted. Left Coronary Artery selective angiography was performed in multiple views u sing a 5 Fr. JL4 catheter. Right Coronary Artery selective angiography was then performed in multiple views using a 5 Fr. 3DRC (Demetrius) catheter. Left Ventriculography was performed in BERNAL projection using a 5 Fr. Pigtail catheter. LV to AO pullback pressures were then recorded.Contrast was injected through the sheath and the Right Iliac and Femoral artery were assessed for possible chelsie sure device.The arterial sheath was pulled and a Mynx closure device was deployed for hemostasis CORONARY ANGIOGRAPHY LEFT HEART ASSESSMENT Left Ventricular Ejection Fraction: by LV Gram 60 % Normal LV wall motion Normal Left Ventricular systolic function LEFT MAIN: 50% distal left main stenosis with mild calcification LEFT ANTERIOR DECENDING ARTERY: OSTIAL LAD: 80 % Stenosis DIAGONAL 1: Ostial - 80 % Stenosis CIRCUMFLEX ARTERY: MID CIRC: Moderate luminal irregularities up to 50% RIGHT CORONARY ARTERY: PROX RCA: is occluded COMPLICATIONS No Complications PROCEDURE MEDICATIONS Versed 1 mg IV Fentanyl 50 mcg IV Versed 1 mg IV Oxygen: 2 L/min via nasal cannula SUMMARY OF HEMODYNAMIC DATA Time AIR REST ECG 07:07:25 AO 116/57 (83) SA 08:46:21 LV 127/-8, -6 08:53:40 LV 127/-8, -5 08:53:47 LV 142/-12, 7 08:55:11 LV 133/-12, 6 08:55:18 LVp 141/-13, 6 08:55:22 AOp 147/64 (99) 08:55:27 Signed By Chin Stubbs MD On 06/25/2018 13:29:23 Signed By Chin Stubbs MD On 06/25/2018 09:52:18 Chin Stubbs MD
== END 2018-06-25 14:00 | disposition short-term general hospital (02) ==
LOC: CLSP 06:31
PROVIDERS: Family Provider Family Medicine; PCP Family Medicine; Referring Provider Internal Medicine Cardiovascular Disease; Visit Provider Internal Medicine Cardiovascular Disease
DX: I25.10 Atherosclerotic heart disease of native coronary artery without angina pectoris (principal); I25.82 Chronic total occlusion of coronary artery; E78.5 Hyperlipidemia, unspecified; M51.36 Other intervertebral disc degeneration, lumbar region; M19.90 Unspecified osteoarthritis, unspecified site; R03.0 Elevated blood-pressure reading, without diagnosis of hypertension; E55.9 Vitamin D deficiency, unspecified; R94.39 Abnormal result of other cardiovascular function study; Z79.82 Long term (current) use of aspirin; Z79.02 Long term (current) use of antithrombotics/antiplatelets; Z79.899 Other long term (current) drug therapy; Z86.010 Personal history of colon polyps; Z87.891 Personal history of nicotine dependence
CPT/HCPCS: 71046; 93458; 99152; 99153; C1760; J7040; Q9967; C1769; C1894

== ENCOUNTER → 2018-08-12 08:44 | Outpatient (CLI) | payer MEDICARE, SELFPAY ==
[2018-08-06 08:59] VITALS: BMI 32.0
--- NOTE | 2018-08-12 08:57 | CR.HP_ITS ---
CR - History & Physical - General Arrival date:: 08/12/18 Arrival time:: 08:53 Date of Referral:: 08/06/18 Date of CR Evaluation:: 08/12/18 Referring Physician: Dr. Chin Stubbs Primary Diagnosis: CABG - History of Present Cardiac Event Onset Date: Enter Onset Date of cardiac illnesses in Comment field below Coronary Artery Bypass Graft:: Yes - 07/01/2018 Type of Symptoms:: none; went for a check up after falling off a ladder in February went for complete exam with x-ray Interventions with present event:: Heart cath adn subsequently sent to [facility] for triple vessel disease Were there any complications?: left lung collapse during or after surgery but re solved. - Medications Home Medications: Ambulatory Orders Medication Instructions Recorded aspirin 81 mg tablet,delayed 81 mg PO DAILY 06/22/18 release atorvastatin 40 mg tablet 40 mg PO QHS 08/05/18 furosemide 40 mg tablet 40 mg PO DAILY 08/05/18 metoprolol tartrate 50 mg tablet 50 mg PO BID 08/05/18 - Allergies Allergies/Adverse Reactions: Allergies No Known Allergies Allergy (Verified 08/06/18 09:00) - Sleep Disorder Evaluation Hx of Sleep Apnea: No Do you snore loudly (louder than talking or can be heard through closed doors)?: Yes Do you often feel tired/ fatigued/ sleepy during daytime?: Yes Has anyone observed you stop breathing during sleep?: No History of Hypertension (for STOP score): Yes - Did have a sleep study completed only minor nothing serious found. STOP Results: Positive Advanced Directives - Advanced Directives Power of Supervisor Inspection Department: Yes Living Will: Yes - Wants an attempt of CPR for revival, but no life support if unable Advance Directives Information Provided: No Advance Directives on File: Yes DNR Order?:: No - MOLST See MOLST form: No Past Medical History - Past Medical Illness Medical History: Past Medical History (Last Reviewed 08/06/18 @ 10:36 by Chin Stubbs MD) Essential (primary) hypertension (Chronic) I10 Atherosclerosis of coronary artery of [place] heart without angina pectoris (Chronic) I25.10 CABG x 4 MILIAN-LAD, SVG-D1, SVG-OM1 and SVG-RCA 07/01/18 Hyperlipidemia (Chronic) E78.5 Cervical spondylosis M47.812 Colon polyps K63.5 DDD (degenerative disc disease), lumbar M51.36 Erectile dysfunction N52.9 Osteoarthritis M19.90 Scoliosis M41.9 TIA (transient ischemic attack) Onset Date: 07/[address] w/ evidence Lacunar Infarct Vitamin D deficiency E55.9 Wound cellulitis after surgery T81.49XA LLE, SVG harvest site Carotid artery disease I77.9 - Past Surgical History Surgical History: Past Surgical History (Last Reviewed 08/06/18 @ 10:36 by Chin Stubbs MD) H/O coronary artery bypass surgery (Resolved) Onset Date: 07/01/18 Z95.1 CABG x 4 MILIAN-LAD, SVG-D1, SVG-OM1 and SVG-RCA 07/01/18 History of appendectomy Z90.49 History of left heart catheterization Onset Date: 06/25/18 Z98.890 Triple-vessel disease involving a distal left main, proximal left anterior descending artery and diagonal vessel, and total right coronary artery. Hx of colonoscopy Z98.890 2014 Hx of colonoscopy with polypectomy Z98.890, Z86.010 - Family History Summary Family History: Family History (Last Reviewed 08/06/18 @ 10:36 by Chin Stubbs MD) Father Colon cancer Mother Diabetes Heart disease Hypertension CAD (coronary artery disease) CVA (cerebral vascular accident) Brother CVA (cerebral vascular accident) Myocardial infarction age 85 CAD (coronary artery disease) Social History - Smoking History Smoking Status: Former smoker Hx Tobacco Use: No Hx Smoking Exposure: No - Alcohol Use Alcohol Usage: No - Substance Abuse Hx Substance Use: No - Occupation Occupation (List type of work in comments):: Retired - Hobbies, Recreation, Social Activities Hobbies: Woodworking - fishing, outdoor activity, engines cars , Other Recreational Activities: I am able to engage in all my recreational activities Social Environment - Status Marital Status: - Current Living Arrangements Living Environment:: Spouse - Children How many children do you have?: 2 Do any of your children live nearby?: Yes - daughter and son in area - Safety Do you feel safe in your surroundings?: Yes - Assistance Do you need any assistance at home?: none Review of Systems - Review of Systems Hints: Right click = Denies ([place]). Left click = Reports ([place]) Review of Present Symptoms: Reports: Wound Healing, Appetite - Normal, Appetite - Special Diet - low fat, low salt, Sleep - Normal, Sexual Changes - erectile dysfunction. Denies: Shortness of Breath at Rest, Shortness of Breath with Exertion, Angina, Dizziness/Lightheadedness, Heart Arrhythmia/Irregularities - Pain Is Patient Pain Free?: Yes Pain Location: none Risk Factor Assessment - Chief Complaint Chief Complaint: Patient and his present to CR today following recent CABG. Patient stated he has been walking about 1 mile for the past 1 to 2 weeks with no issues. - Vital Signs Temperature: 98.7 F Respiratory Rate: 14 Pulse Ox: 97 Blood Pressure: 160/84 Nailbeds:: normal in color - Pulse Pulse Rate: 84 Pulse Rhythm: Regular - Hypertension Blood Pressure Sitting - Left Arm: 160/84 - Blood Cholesterol/Lipids Total Cholesterol (mg/dL) Goal = less than 200 mg/dL: 216 HDL Cholesterol (mg/dL) Goal = less than 40 mg/dL: 33 LDL Cholesterol (mg/dL) Goal = less than 70 mg/dL: 135 Triglycerides (mg/dL) Goal = less than 150 mg/dL: 242 - Diabetes Nutrition Referral for Diabetes: No - Obesity Height: 5 ft 10 in Weight:: 223 lb Weight in Pounds: 223.0 lbs Weight Source: Estimated by Patient Body Mass Index (BMI): 32.0 - Physical Inactivity Physical Inactivity: Reg Exercise 30 min/day - Risk Stratification Risk Guidelines: Lowest Risk: Risk Factor for Smoking, Risk Factor for Diabetes, Risk Factor for Sedentary Lifestyle, Risk Factor for Depression, Moderate Risk: Risk Factor for Obesity, Risk Factor for Hypertension, Highest Risk: Risk Factor for Dyslipidemia - For Smoking Smoking Risk Guidelines: Smoking Low Risk: None or quit greater than 6 months ago. Smoking Moderate Risk: Smoker or quit 6 months or less ago. Smoking High Risk: Smoker - For Dyslipidemia Dyslipidemia Risk Guidelines: Low Risk: Moderate Risk: High Risk: 15-25% fat 25.1-29% fat >/= 30% fat. <7% sat fat 7-9% sat fat >9% sat fat. <150 mg chol 150-299 mg chol >/= 300 mg chol. LDL <100 LDL 100-129 LDL >/= 130. Chol/HDL ratio <5.0 Chol/HDL ratio 5.0-6.0 Chol/HDL ratio >6.0. Triglycerides <100 Triglycerides 100-149 Triglycerides >/= 150 - For Diabetes Mellitus Diabetes Risk Guidelines: Diabetes Low Risk: HgA1c <6.5% and/or FBG <120. Diabetes Moderate Risk: HgA1c 6.6-7.9% and/or FBG 120-180. Diabetes High Risk: HgA1c >/= 8% and/or FBG >180 - For Obesity/Overweight Obesity/Overweight Risk Guidelines: Obesity Low Risk: BMI <25.0. Obesity Moderate Risk: BMI 25-29.9. Obesity High Risk: BMI >/= 30.0 - For Hypertension Hypertension Risk Guidelines: Hypertension Low Risk: Systolic <120 and Diastolic <80. Hypertension Moderate Risk: Systolic 120-139 and Diastolic 80-89. Hypertension High Risk: Systolic >/= 140 and Diastolic >/= 90 - For Sedentary Lifestyle Sedentary Lifestyle Risk Guidelines: Sedentary Lifestyle Low Risk: >/= 1,500 kcal/week. Sedentary Lifestyle Moderate Risk: 700-1,499 kcal/week. Sedentary Lifestyle High Risk: < 700 kcal/week - For Depression Depression Risk Guidelines: Depression Low Risk: Not clinically depressed. Depression Moderate Risk: Mildly depressed. Depression High Risk: Clinically depressed - Family History Family History: Family History (Last Reviewed 08/06/18 @ 10:36 by Chin Stubbs MD) Father Colon cancer Mother Diabetes Heart disease Hypertension CAD (coronary artery disease) CVA (cerebral vascular accident) Brother CVA (cerebral vascular accident) Myocardial infarction CAD (coronary artery disease) Motivation - Motivation to Participate On a scale of 1 to 10, how prepared are you to commit to attending program?: 10 What do you see as barriers to successfully being able to complete the program?: none What do you see as the benefits of succesfully completing the program? In other words, what do you hope to get out of participating in the program?: healthier lifestyle, excited to be back to normal life. Are there issues you are dealing with that will interfere with completing the program?: none Do you have a spouse or signficant other, family or friends who will help support you to complete the program?: none
[2018-08-12 09:07] VITALS: BP 160/84; PULSE 84; RESP 14; TEMP 37.1; O2SAT 97; BMI 32.0
--- NOTE | 2018-08-12 09:47 | PCM.CR.ITP ---
General Information - General Information Admitting Diagnosis: CABG - Education/Goals Barriers to Learning: None Individual Counseling: Initial Assessment: High Blood Pressure, Overweight/Obesity Cardiac Rehabilitation Goals: 1. Maintain the individual as the primary focus of care. 2. To improve the patient's quality of life. 3. Identification of cardiac risk factors and provide cardiac risk factor management. 4. Enhance the psychosocial status of the patient. 5. Reconditioning enough to allow the patient to resume customary activities. 6. Control symptoms of cardiac disease Scale for measuring improvement of personal goals: Enter appropriate number in Comments. 2 = Unchanged. 3 = Slightly Better. 4 = Moderate Improvement. 5 = Met my Goal Personal Goals: Initial Assessment: Improve energy level, Improve muscle strength and endurance Exercise - Initial Assessment - Visit Date of Eval: 08/12/18 - Stages of Change Stages of Change:: Action - Physician Prescribed Exercise Modalities: Treadmill, Airdyne, NuStep Frequency (days/week): 3x/week for 12 weeks [36 sessions] Intensity: 60-80% age predicted maximum heart rate reserve METs - Progression: 0.5-1.0 MET, RPE 11-14 WEEK: 2.5 Target Heart Rate:: 116-132 - Hypertension Do any of the following apply?: No - NO PREVIOUS H/O, Medication Resting Blood Pressure:: 160/84 - Intervention Home Exercise/Activity Goal:: Moderate Exercise 30 min/day x 5 days/wk - Education Goals:: Warm-up, RPE MEDHAT Scale, S/S, Safe Exercise, Self-Monitoring - Exercise Program Goals Exercise Program Goals: Aerobic Activity >30 min Nutrition - Initial Assessment - Program Goals Nutrition Program Goals: LDL <70. Total Cholesterol <200. HDL >45. Triglycerides <150. HgbA1C <7%. BMI <25 - Visit Date of Assessment:: 08/12/18 - Stages of Change Stages of Change:: Action - Lipids Total Cholesterol (mg/dL) Goal = less than 200 mg/dL: 216 HDL Cholesterol (mg/dL) Goal = less than 45 mg/dL: 33 LDL Cholesterol (mg/dL) Goal = less than 70 mg/dL: 135 Triglycerides (mg/dL) Goal = less than 150 mg/dL: 242 - Diabetes Diabetes:: No - Weight Management Height: 5 ft 10 in Weight:: 223 lb Body Fat %:: 32 - Intervention Referral to dietitian:: No Referral to Diabetic Clinic:: No Will attend diet classes:: Yes - Education Gave educational materials for:: Healthy eating Tobacco - Initial Assessment - Program Goals Tobacco Program Goals: Complete smoking cessation. Attend education classes. Improve Knowledge Test score - Stage of Change Stages of Change:: Action - Learning Barriers Learning Barriers: Ready to Learn - Family Support Do you have family support?: Yes - Tobacco Use Tobacco Use: Non-smoker Do you use smokeless tobacco?: No - Intervention Smoking Cessation Referral:: No Individual Education/Counseling:: No Education Schedule Given:: Yes - Education Gave educational material for:: Coronary artery disease, Risk factors, Sexuality, Medical compliance, Cardiac A&P, Angina signs & symptoms Psychosocial - Initial Assess - Target Goals Target Goals: Assess presence or absence of depression. Using a valid screening tool, maximizes coping skills. Positive support system - Stages of Change Stages of Change:: Action - Psychosocial Test Tool Used:: HANDS Depression Questionnaire Tests Completed: SF - 36 survey completed, Mood Scale Test - Intervention PS - Interventions: Yes Attend Stress Management Classes, No Referral to Mental Health, No Referral to [facility] Case Management, No Referral to Physician, No Uses Stress Management Skills - Education Gave educational materials for:: Coping techniques, Signs & symptoms of depression, Stress management, Relaxation techniques - Patient/Program Goal Preventative Medication(s):: Aspirin, Clopidogrel, Statin/lipid - Assistive Devices Assistive Devices:: None Fall Risk Assessed:: Yes Patient Health Questionnaire Initial Assessment 1. Little interest or pleasure in doing things: Not at all 2. Feeling down, depressed, or hopeless: Not at all 3. Trouble falling or staying asleep, or sleeping too much: Not at all 4. Feeling tired or having little energy: Several days 5. Poor appetite or overeating: Not at all 6. Feeling bad about yourself -- or that you are a failure or have let yourself or your family down: Not at all 7. Trouble concentrating on things, such as reading the newspaper or watching television: Not at all 8. Moving or speaking so slowly that other people could have noticed. Or the opposite - being so fidgety or restless that you have been moving around a lot more than usual: Not at all 9. Thoughts that you would be better off , or of hurting yourself in some way: Not at all How difficult have these problems made it for you to do your work, take care of things at home, or get along with other people?: Not difficult at all Total Score: 1 FRANKY-Q SV Test - Statements CAD is a disease of the arteries in the heart: False Examples of risk factors for heart disease: True Angina is chest pain or discomfort: True The benefits of resistance training include: True Eating more meat and dairy products: False Anti-platelet medications such as aspirin are important: True The only effective way to manage stress: I Don't Know An exercise warm-up slowly increases heart rate: True Prepared, processed foods usually have high sodium: True Depression is common after a heart attack: False The statin medications lower cholesterol: False To control blood pressure, lower the amount of sodium: True If someone gets chest discomfort during walking: False Sleep apnea that is not treated increases the risk: I Don't Know To control cholesterol, one should become a vegetarian: False Someone knows if he/she is exercising at the right level: I Don't Know Diabetes cannot be prevented with exercise & health eating: I Don't Know Stress is a large risk for heart attack: I Don't Know A diet that can help lower blood pressure is rich in: True Self-Efficacy Initial Assessment We would like to know how confident you are in doing certain activities. Please select your confidence level for:: Select your confidence level for the following using the scale 1-10 where 1 is not at all confident and 10 is totally confident. Your score is the average of all 6 responses. Fatigue: How confident are you that you can keep the fatigue caused by your disease from interfering with the things you want to do? Select Number: 10 Physical Discomfort or Pain: How confident are you that you can keep the physical discomfort or pain of your disease from interfering with the things you want to do? Select Number: 10 Emotional Distress: How confident are you that you can keep the emotional distress caused by your disease from interfering with the things you want to do? Select Number: 10 Other Symptoms or Health Problems: How confident are you that you can keep other symptoms or health problems from interfering with the things you want to do? Select Number: 10 Different Tasks and Activities: How confident are you that you can do the different tasks and activities needed to manage your health condition so as to reduce your need to see a doctor? Select Number: 10 Medication: How confident are you that you can do things other than just taking medication to reduce how much your illness affects your everyday life? Select Number: 10 Total Score:: 10 Nutrition Survey - Nutrition Survey Instructions Scoring Instructions: Scoring is as follows: Yes = 1 points. No = 0 point. Patient score that is >/=12 is considered to be at potential nutritional risk and could benefit from a referral to a registered dietitian. - Nutrition Survey Initial Have you lost >10 lbs over the past 2 months without trying?: No Are you following a special diet at home for diabetes, low fat, or low salt?: No Are you interested in meeting with a dietitian for help understanding your diet?: No Do you eat less than 3 meals a day?: No Do you eat fatty meats (galaviz, sausage, ribs, etc), fried foods, desserts, large amounts of salad dressings, margarine, butter, or cheese most days?: Yes Do you have food allergies? [Enter types in comment field]: No Do you eat in restaurants more than 3 times a week?: No Do you season food with salt, seasoning salt, or garlic salt?: No Do you used canned, boxed, frozen meals, or soups, seasoning packets?: No Total Score:: 1
[2018-08-12 10:40] VITALS: BP 160/84
== END ==
PROVIDERS: Family Provider Family Medicine; PCP Family Medicine; Referring Provider Internal Medicine Cardiovascular Disease; Visit Provider Internal Medicine Cardiovascular Disease
DX: I25.10 Atherosclerotic heart disease of native coronary artery without angina pectoris (principal); Z95.1 Presence of aortocoronary bypass graft

== ENCOUNTER 2018-08-20 13:00 | Outpatient (RCR) | payer MEDICARE, SELFPAY ==
[2018-08-12 09:07] VITALS: BMI 32.0
== END 2018-08-22 23:59 ==
LOC: CR 13:00
PROVIDERS: Family Provider Family Medicine; PCP Family Medicine; Referring Provider Internal Medicine Cardiovascular Disease; Visit Provider Internal Medicine Cardiovascular Disease
DX: I25.10 Atherosclerotic heart disease of native coronary artery without angina pectoris (principal); I10 Essential (primary) hypertension; E78.5 Hyperlipidemia, unspecified; Z95.1 Presence of aortocoronary bypass graft
CPT/HCPCS: 93798

== ENCOUNTER 2018-09-20 13:00 | Outpatient (RCR) | payer MEDICARE, SELFPAY ==
[2018-08-12 09:07] VITALS: BMI 32.0
--- NOTE | 2018-09-03 11:19 | CR.ITP_ITS ---
General Information - General Information Admitting Diagnosis: CABG - Education/Goals Cardiac Rehabilitation Goals: 1. Maintain the individual as the primary focus of care. 2. To improve the patient's quality of life. 3. Identification of cardiac risk factors and provide cardiac risk factor management. 4. Enhance the psychosocial status of the patient. 5. Reconditioning enough to allow the patient to resume customary activities. 6. Control symptoms of cardiac disease Scale for measuring improvement of personal goals: Enter appropriate number in Comments. 2 = Unchanged. 3 = Slightly Better. 4 = Moderate Improvement. 5 = Met my Goal Exercise - 30-day Assessment - Visit Date of Eval: 09/03/18 Session #:: 7 - Stages of Change Stages of Change:: Action - Physician Prescribed Exercise Modalities: Treadmill, Rower, NuStep Frequency (days/week): 3 Duration (Minutes):: 30-45 Intensity: 60-80% age predicted maximum heart rate reserve METs - Progression: 0.5-1.0 MET, RPE 11-14 WEEK: 3.5 Target Heart Rate:: 116-124 - Hypertension Resting Blood Pressure:: 130/64 Peak Exercise Blood Pressure:: 144/78 - Intervention Home Exercise/Activity Goal:: Sitting Time <3 hrs/day - Education Goals:: Warm-up, RPE MEDHAT Scale, S/S, Safe Exercise, Self-Monitoring - Exercise Program Goals Exercise Program Goals: Aerobic Activity >30 min, B/P <130/80 Nutrition - 30-Day Assessment - Program Goals Nutrition Program Goals: LDL <70. Total Cholesterol <200. HDL >45. Triglycerides <150. HgbA1C <7%. BMI <25 - Visit Date of Eval: 09/03/18 - Stages of Change Stages of Change:: Action - Weight Management Weight:: 100.924 kg - Intervention Referral to dietitian:: No Referral to Diabetic Clinic:: No Will attend diet classes:: Yes - Education Attended class for:: Signs & symptoms of hypoglycemia, Signs & symptoms of hyperglycemia, Relate diabetes to coronary artery disease, Healthy eating Tobacco - Initial Assessment - Program Goals Tobacco Program Goals: Complete smoking cessation. Attend education classes. Improve Knowledge Test score - Learning Barriers Learning Barriers: Ready to Learn Tobacco - 30-Day Assessment - Program Goals Tobacco Program Goals: Complete smoking cessation. Attend education classes. Improve Knowledge Test score - Stage of Change Stages of Change:: Action - Learning Barriers Learning Barriers: Participates in education - Tobacco Use Tobacco Use: Non-smoker Do you use smokeless tobacco?: No - Intervention Smoking Cessation Referral:: No Individual Education/Counseling:: No Education Schedule Given:: Yes - Education Attended class for:: Tobacco triggers, Coronary artery disease, Risk factors, Sexuality, Medical compliance, Cardiac A&P, Angina signs & symptoms Psychosocial - Initial Assess - Target Goals Target Goals: Assess presence or absence of depression. Using a valid screening tool, maximizes coping skills. Positive support system - Psychosocial Test Tool Used:: HANDS Depression Questionnaire - Assistive Devices Fall Risk Assessed:: Yes Psychosocial - 30-Day Assess - Target Goals Target Goals: Assess presence or absence of depression. Using a valid screening tool, maximizes coping skills. Positive support system - Stages of Change Stages of Change:: Action - Psychosocial Test Tool Used:: HANDS Depression Questionnaire - Intervention PS - Interventions: Yes Attend Stress Management Classes, Yes Uses Stress Management Skills, No Referral to Mental Health, No Referral to [facility] Case Management, No Referral to Physician - Education Attended classes for:: Coping techniques, Signs & symptoms of depression, Stress management, Relaxation techniques - Assistive Devices Assistive Devices:: None Fall Risk Assessed:: Yes Patient Health Questionnaire 30-Day Re-eval Assessment 1. Little interest or pleasure in doing things: Not at all 2. Feeling down, depressed, or hopeless: Not at all 3. Trouble falling or staying asleep, or sleeping too much: Not at all 4. Feeling tired or having little energy: Several days 5. Poor appetite or overeating: Not at all 6. Feeling bad about yourself -- or that you are a failure or have let yourself or your family down: Not at all 7. Trouble concentrating on things, such as reading the newspaper or watching t elevision: Not at all 8. Moving or speaking so slowly that other people could have noticed. Or the opposite - being so fidgety or restless that you have been moving around a lot more than usual: Not at all 9. Thoughts that you would be better off , or of hurting yourself in some way: Not at all How difficult have these problems made it for you to do your work, take care of things at home, or get along with other people?: Not difficult at all Total Score: 1 Self-Efficacy 30-Day Re-eval Assessment We would like to know how confident you are in doing certain activities. Please select your confidence level for:: Select your confidence level for the following using the scale 1-10 where 1 is not at all confident and 10 is totally confident. Your score is the average of all 6 responses. Fatigue: How confident are you that you can keep the fatigue caused by your disease from interfering with the things you want to do? Select Number: 10 Physical Discomfort or Pain: How confident are you that you can keep the physical discomfort or pain of your disease from interfering with the things you want to do? Select Number: 10 Emotional Distress: How confident are you that you can keep the emotional distress caused by your disease from interfering with the things you want to do? Select Number: 10 Other Symptoms or Health Problems: How confident are you that you can keep other symptoms or health problems from interfering with the things you want to do? Select Number: 10 Different Tasks and Activities: How confident are you that you can do the different tasks and activities needed to manage your health condition so as to reduce your need to see a doctor? Select Number: 10 Medication: How confident are you that you can do things other than just taking medication to reduce how much your illness affects your everyday life? Select Number: 10 Total Score:: 10
[2018-09-03 11:20] VITALS: BP 130/64; BP 144/78
== END 2018-09-21 23:59 ==
LOC: CR 13:00
PROVIDERS: Family Provider Family Medicine; PCP Family Medicine; Referring Provider Internal Medicine Cardiovascular Disease; Visit Provider Internal Medicine Cardiovascular Disease
DX: I10 Essential (primary) hypertension (principal); I25.10 Atherosclerotic heart disease of native coronary artery without angina pectoris; E78.5 Hyperlipidemia, unspecified; Z95.1 Presence of aortocoronary bypass graft
CPT/HCPCS: 93798

== ENCOUNTER 2018-10-22 13:00 | Outpatient (RCR) | payer MEDICARE, SELFPAY ==
[2018-08-12 09:07] VITALS: BMI 32.0
[2018-09-22 01:39] VITALS: BP 130/64; BP 144/78
--- NOTE | 2018-10-04 08:31 | PCM.CR.ITP ---
Exercise - 30-day Assessment - Visit Date of Eval: 10/04/18 Session #:: 20 - Stages of Change Stages of Change:: Action - Physician Prescribed Exercise Modalities: Treadmill, Rower, Airdyne Frequency (days/week): 3 Duration (Minutes):: 30-45 Intensity: 60-80% age predicted maximum heart rate reserve METs - Progression: 0.5-1.0 MET, RPE 11-14 WEEK: 4.7 Target Heart Rate:: 132-146 - Hypertension Resting Blood Pressure:: 102/68 Peak Exercise Blood Pressure:: 124/82 Medication Changes:: No - Intervention Home Exercise/Activity Goal:: Moderate Exercise 30 min/day x 5 days/wk - Education Goals:: Warm-up, RPE MEDHAT Scale, S/S, Safe Exercise, Self-Monitoring - Exercise Program Goals Exercise Program Goals: Aerobic Activity >30 min Nutrition - 60-Day Assessment - Program Goals Nutrition Program Goals: LDL <70. Total Cholesterol <200. HDL >45. Triglycerides <150. HgbA1C <7%. BMI <25 - Visit Date of Eval: 10/04/18 - Stages of Change Stages of Change:: Action - Lipids Has the patient seen the dietitian?: No - Weight Management Weight:: 210 lb 8 oz - down 12.5 this 30-days - Intervention Referral to dietitian:: No Referral to Diabetic Clinic:: No Will attend diet classes:: Yes - Education Attended class for:: Healthy eating Tobacco - Initial Assessment - Program Goals Tobacco Program Goals: Complete smoking cessation. Attend education classes. Improve Knowledge Test score - Learning Barriers Learning Barriers: Ready to Learn Tobacco - 60-Day Assessment - Program Goals Tobacco Program Goals: Complete smoking cessation. Attend education classes. Improve Knowledge Test score - Stage of Change Stages of Change:: Action - Learning Barriers Learning Barriers: Participates in education - Family Support Do you have family support?: Yes - Tobacco Use Tobacco Use: Non-smoker Do you use smokeless tobacco?: No - Intervention Smoking Cessation Referral:: No Individual Education/Counseling:: No Education Schedule Given:: Yes - Education Attended class for:: Coronary artery disease, Risk factors, Sexuality, Medical compliance, Cardiac A&P, Angina signs & symptoms Psychosocial - Initial Assess - Target Goals Target Goals: Assess presence or absence of depression. Using a valid screening tool, maximizes coping skills. Positive support system - Psychosocial Test Tool Used:: HANDS Depression Questionnaire - Assistive Devices Fall Risk Assessed:: Yes Psychosocial - 60-Day Assess - Target Goals Target Goals: Assess presence or absence of depression. Using a valid screening tool, maximizes coping skills. Positive support system - Stages of Change Stages of Change:: Action - Psychosocial Test Tool Used:: HANDS Depression Questionnaire - Intervention PS - Interventions: Yes Attend Stress Management Classes, Yes Uses Stress Management Skills, No Referral to Mental Health, No Referral to [facility] Case Management, No Referral to Physician - Education Attended classes for:: Coping techniques, Signs & symptoms of depression, Stress management, Relaxation techniques - Patient/Program Goal Preventative Medication(s):: Aspirin, Clopidogrel, Beta travis, Statin/lipid - Assistive Devices Assistive Devices:: None Fall Risk Assessed:: Yes Patient Health Questionnaire 60-Day Re-eval Assessment 1. Little interest or pleasure in doing things: Not at all 2. Feeling down, depressed, or hopeless: Not at all 3. Trouble falling or staying asleep, or sleeping too much: Not at all 4. Feeling tired or having little energy: Not at all 5. Poor appetite or overeating: Not at all 6. Feeling bad about yourself -- or that you are a failure or have let yourself or your family down: Not at all 7. Trouble concentrating on things, such as reading the newspaper or watching television: Not at all 8. Moving or speaking so slowly that other people could have noticed. Or the opposite - being so fidgety or restless that you have been moving around a lot more than usual: Not at all 9. Thoughts that you would be better off , or of hurting yourself in some way: Not at all Total Score: 0 Self-Efficacy 60-Day Re-eval Assessment We would like to know how confident you are in doing certain activities. Please select your confidence level for:: Select your confidence level for the following using the scale 1-10 where 1 is not at all confident and 10 is totally confident. Your score is the average of all 6 responses. Fatigue: How confident are you that you can keep the fatigue caused by your disease from interfering with the things you want to do? Select Number: 10 Physical Discomfort or Pain: How confident are you that you can keep the physical discomfort or pain of your disease from interfering with the things you want to do? Select Number: 10 Emotional Distress: How confident are you that you can keep the emotional distress caused by your disease from interfering with the things you want to do? Select Number: 10 Other Symptoms or Health Problems: How confident are you that you can keep other symptoms or health problems from interfering with the things you want to do? Select Number: 10 Different Tasks and Activities: How confident are you that you can do the different tasks and activities needed to manage your health condition so as to reduce your need to see a doctor? Select Number: 10 Medication: How confident are you that you can do things other than just taking medication to reduce how much your illness affects your everyday life? Select Number: 10 Total Score:: 10
[2018-10-04 08:36] VITALS: BP 102/68; BP 124/82
== END 2018-10-22 23:59 ==
LOC: CR 13:00
PROVIDERS: Family Provider Family Medicine; PCP Family Medicine; Referring Provider Internal Medicine Cardiovascular Disease; Visit Provider Internal Medicine Cardiovascular Disease
DX: I25.10 Atherosclerotic heart disease of native coronary artery without angina pectoris (principal); I10 Essential (primary) hypertension; E78.5 Hyperlipidemia, unspecified; Z95.1 Presence of aortocoronary bypass graft
CPT/HCPCS: 93798

== ENCOUNTER 2018-11-10 13:00 | Outpatient (RCR) | payer MEDICARE, SELFPAY ==
[2018-08-12 09:07] VITALS: BMI 32.0
[2018-10-23 01:03] VITALS: BP 102/68; BP 124/82
[2018-11-03 09:23] VITALS: BP 132/50; BP 188/72
--- NOTE | 2018-11-03 09:23 | CR.ITP_ITS ---
Exercise - 90-Day Assessment - Visit Date of Eval: 11/03/18 Session #:: 32 - Stages of Change Stages of Change:: Action - Physician Prescribed Exercise Modalities: Treadmill, Rower, Airdyne, NuStep Frequency (days/week): 3 Duration (Minutes):: 30-45 Intensity: 60-80% age predicted maximum heart rate reserve METs - Progression: 0.5-1.0 MET, RPE 11-14 WEEK: 6.9 Target Heart Rate:: 132-146 - Hypertension Resting Blood Pressure:: 132/50 Peak Exercise Blood Pressure:: 188/72 Medication Changes:: No - Intervention Home Exercise/Activity Goal:: Moderate Exercise 30 min/day x 5 days/wk - Education Goals:: Warm-up, RPE MEDHAT Scale, S/S, Safe Exercise, Self-Monitoring - Exercise Program Goals Exercise Program Goals: Aerobic Activity >30 min Nutrition - 90-Day Assessment - Program Goals Nutrition Program Goals: LDL <70. Total Cholesterol <200. HDL >45. Triglycerides <150. HgbA1C <7%. BMI <25 - Visit Date of Eval: 11/03/18 - Stages of Change Stages of Change:: Action - Lipids Has the patient seen the dietitian?: Yes - Diabetes Diabetes:: No Insulin: No Non-Insulin Dependent?: No - Weight Management Weight:: 202 lb 8 oz - Intervention Referral to dietitian:: No Referral to Diabetic Clinic:: No Will attend diet classes:: Yes - Education Attended class for:: Healthy eating Tobacco - Initial Assessment - Program Goals Tobacco Program Goals: Complete smoking cessation. Attend education classes. Improve Knowledge Test score - Learning Barriers Learning Barriers: Ready to Learn Tobacco - 90-Day Assessment - Program Goals Tobacco Program Goals: Complete smoking cessation. Attend education classes. Improve Knowledge Test score - Stage of Change Stages of Change:: Action - Learning Barriers Learning Barriers: Participates in education - Family Support Do you have family support?: Yes - Tobacco Use Tobacco Use: Non-smoker Do you use smokeless tobacco?: No - Intervention Smoking Cessation Referral:: No Individual Education/Counseling:: No Education Schedule Given:: Yes - Education Attended class for:: Coronary artery disease, Risk factors, Sexuality, Medical compliance, Cardiac A&P, Angina signs & symptoms Psychosocial - Initial Assess - Target Goals Target Goals: Assess presence or absence of depression. Using a valid screening tool, maximizes coping skills. Positive support system - Psychosocial Test Tool Used:: HANDS Depression Questionnaire - Assistive Devices Fall Risk Assessed:: Yes Psychosocial - 90-Day Assess - Target Goals Target Goals: Assess presence or absence of depression. Using a valid screening tool, maximizes coping skills. Positive support system - Stages of Change Stages of Change:: Action - Psychosocial Test Tool Used:: HANDS Depression Questionnaire - Intervention PS - Interventions: Yes Attend Stress Management Classes, Yes Uses Stress Management Skills, No Referral to Mental Health, No Referral to [facility] Case Management, No Referral to Physician - Education Attended classes for:: Coping techniques, Signs & symptoms of depression, Stress management, Relaxation techniques - Patient/Program Goal Preventative Medication(s):: Aspirin, Clopidogrel, Beta travis, Statin/lipid - Assistive Devices Assistive Devices:: None Fall Risk Assessed:: Yes Patient Health Questionnaire 90-Day Re-eval Assessment 1. Little interest or pleasure in doing things: Not at all 2. Feeling down, depressed, or hopeless: Not at all 3. Trouble falling or staying asleep, or sleeping too much: Not at all 4. Feeling tired or having little energy: Not at all 5. Poor appetite or overeating: Not at all 6. Feeling bad about yourself -- or that you are a failure or have let yourself or your family down: Not at all 7. Trouble concentrating on things, such as reading the newspaper or watching television: Not at all 8. Moving or speaking so slowly that other people could have noticed. Or the opposite - being so fidgety or restless that you have been moving around a lot more than usual: Not at all 9. Thoughts that you would be better off , or of hurting yourself in some way: Not at all Total Score: 0 Self-Efficacy 90-Day Re-eval Assessment We would like to know how confident you are in doing certain activities. Please select your confidence level for:: Select your confidence level for the following using the scale 1-10 where 1 is not at all confident and 10 is totally confident. Your score is the average of all 6 responses. Fatigue: How confident are you that you can keep the fatigue caused by your disease from interfering with the things you want to do? Select Number: 10 Physical Discomfort or Pain: How confident are you that you can keep the physical discomfort or pain of your disease from interfering with the things you want to do? Select Number: 10 Emotional Distress: How confident are you that you can keep the emotional distress caused by your disease from interfering with the things you want to do? Select Number: 10 Other Symptoms or Health Problems: How confident are you that you can keep other symptoms or health problems from interfering with the things you want to do? Select Number: 10 Different Tasks and Activities: How confident are you that you can do the dif ferent tasks and activities needed to manage your health condition so as to reduce your need to see a doctor? Select Number: 10 Medication: How confident are you that you can do things other than just taking medication to reduce how much your illness affects your everyday life? Select Number: 10 Total Score:: 10
== END 2018-11-21 23:59 ==
LOC: CR 13:00
PROVIDERS: Family Provider Family Medicine; PCP Family Medicine; Referring Provider Internal Medicine Cardiovascular Disease; Visit Provider Internal Medicine Cardiovascular Disease
DX: I25.10 Atherosclerotic heart disease of native coronary artery without angina pectoris (principal); I10 Essential (primary) hypertension; E78.5 Hyperlipidemia, unspecified; Z95.1 Presence of aortocoronary bypass graft
CPT/HCPCS: 93798

== ENCOUNTER 2018-11-15 01:06 | Emergency (ER) | payer MEDICARE, SELFPAY ==
[2018-08-12 09:07] VITALS: BMI 32.0
[2018-11-15 01:07] VITALS: BP 193/98; PULSE 87; RESP 21; TEMP 36.7; O2SAT 96; BMI 28.5
--- NOTE | 2018-11-15 01:27 | ED.RN ---
RN CALLED FOR EKG, NO OLD EKGS IN MUSE
--- NOTE | 2018-11-15 01:33 | RAD_ITS ---
HISTORY: Chest Pain EXAMINATION/TECHNIQUE: XR Chest 1 View: Portable COMPARISON: 06/23/2018 FINDINGS: EKG leads in place. Normal heart size. No vascular congestion, pleural effusion, or acute pulmonary infiltration. No pneumothorax. Median sternotomy, new compared to previous. RAD/Chest 1 View (Portable) IMPRESSION: 1. No acute cardiopulmonary disease. at 0302 Reported and signed by: Ulysses Moran MD Electronically Signed: Ulysses Moran, at 3:01 EDT Tel , Service support ,
--- NOTE | 2018-11-15 01:33 | EKG12_ITS ---
Test Reason : CP Blood Pressure : / mmHG Vent. Rate : 068 BPM Atrial Rate : 068 BPM P-R Int : 144 ms QRS Dur : 102 ms QT Int : 400 ms P-R-T Axes : 057 039 055 degrees QTc Int : 425 ms Normal sinus rhythm Possible Left atrial enlargement Borderline ECG Confirmed by AMY NAVARRETE, JIL ([id number]), news assignment editor BREE RAMSEY ([id number]) on 11/16/2018 7:30:04 AM Referred By: MK Confirmed By:JIL REYES MD
[2018-11-15 01:38] VITALS: O2SAT 97
[2018-11-15] MEDS: Aspirin 81 MG TAB.CHEW 324 MG PO (01:44)
[2018-11-15 01:45] VITALS: BP 154/96; PULSE 77; RESP 18; O2SAT 98
[2018-11-15 01:45] LABS: Absolute Lymphocyte Count 0.85 X10^3/ul (0.83-4.51); Absolute Neutrophil Count 2.6 X10^3/uL (2.0-7.7); Basophil# 0.01 X10^3/uL; Basophil% 0.2 % (0-1); Eosinophil# 0.08 X10^3/uL; Hematocrit 41.4 % (40-54); Hemoglobin 13.3 g/dl (13.0-16.5); Lymphocyte # 0.85 X10^3/ul (4.0); Lymphocyte % 20.7 % (19-41); Mean Corp Hgb Conc 32.1 g/gl (32-36); Mean Corpuscular Hgb 29.5 pg (27.0-32.0); Mean Corpuscular Volume 91.8 fL (80-94); Mean Platelet Vol. 10.6 fl (6.2-12.0); Monocyte# 0.53 X10^3/uL; Monocyte% 12.9 % (0-10); Neutrophil # 2.63 X10^3/uL (2.7-7.7); Neutrophil % 64.2 % (47-70); Platelet Count 154 K/mm3 (150-450); RBC Distribution Width CV 13.5 % (11.6-14.6); RBC Distribution Width SD 44.4 fl (35.1-43.9); Red Blood Count 4.51 M/mm3 (4.6-6.2); White Blood Count 4.1 K/mm3 (4.4-11.0)
[2018-11-15 01:49] LABS: POSITIVE COUNT NO; POSITIVE DIFFERENTIAL NO; POSITIVE MORPHOLOGY NO
[2018-11-15 02:05] LABS: BUN 16 mg/dL (7-18); Creatinine, Serum 1.09 mg/dL (0.70-1.30); EST Glomerular Filtration Rate 70 mL/min (>60); Estimated Creatinine Clearance 60.46 ml/min; Glucose 117 mg/dL (74-106)
[2018-11-15 02:06] LABS: AST(SGOT) 16 U/L (15-37); Alanine Aminotransfer ALT/SGPT 29 U/L (16-61); Albumin, Serum 3.7 g/dL (3.2-5.0); Alkaline Phosphatase 59 U/L (45-117); Anion Gap 6 (5-15); BUN/Creat Ratio 14.7 RATIO (10-20); Calcium,Total 9.3 mg/dL (8.5-10.1); Chloride 107 mmol/L (98-107); Est Glom Filt Rate - Afr Amer 85 mL/min (>60); Globulin 3.6 g/dL (2.2-4.2); Lipase 150 U/L (73-393); Potassium 4.1 mmol/L (3.5-5.1); Protein, Total 7.3 g/dL (6.4-8.2); Sodium Level 138 mmol/L (136-145)
[2018-11-15 03:13] VITALS: BP 164/91; PULSE 66; RESP 16; O2SAT 98
--- NOTE | 2018-11-15 03:30 | ED.DCSUM_ITS ---
- ER Visit Summary Date of Service: 11/15/18 Chief Complaint: Chest pain History of Present Illness: The patient is a 73 M who presents with right lower chest pain that began today. Patient states the pain is cramping. Patient states the pain is localized to the right lower chest along the costal margin. Patient states the pain radiates into his back occasionally. Patient admits to subjective fevers earlier today. Patient states nothing makes the pain better or worse. Patient denies any nausea or vomiting. Patient denies any shortness of breath. Patient does have a history of coronary artery disease with a four- vessel bypass in June. Patient states he was completely asymptomatic prior to his bypass surgery. Physical Examination: Vital signs are stable. Patient is afebrile. Patient is in no acute distress. Oral mucosa is pink and moist. Neck is supple. Trachea is midline. There is no JVD noted. Heart was regular rate and rhythm. Lungs are clear and equal bilaterally. There is some tenderness along the right costal margin. Abdomen is soft. Bowel sounds are normal. There is some right upper quadrant tenderness. There is no rebound or guarding noted. Cranial nerves II through XII are intact. There are no focal motor or sensory deficits noted. Test Results: EKG showed normal sinus rhythm with a rate of 68. There are no acute ST or T wave changes. There is an old inferior infarct. This was unchanged compared to previous EKG. CBC was normal. Comprehensive metabolic profile showed a slightly elevated bilirubin of 1.1 troponin was normal at 0.015. Emergency Department Course and Treatment: Patient was advised that this may be from gallbladder etiology or musculoskeletal etiology. I doubt if this is cardiac in nature. Patient was offered a dose of morphine but he declined. Patient was instructed to follow-up with his primary care physician in 5 to 7 days. Patient and family understood and were agreeable with the plan. All questions were answered. Disposition: Discharge home Impression: Right-sided chest pain This note was generated with [employer] dictation software. It may contain incorrect words, spelling, and punctuation that were not noted in review of the chart prior to signing ED Disposition - Plan for ED Patient: Disposition: Home or Assisted Living Diagnosis: Right-sided chest pain Instructions: CHEST PAIN, Uncertain Cause, ABDOMINAL PAIN, Unkown Cause, (Male) Referrals: Florentin Marino DO [Primary Care Provider] - 3-5 Days
[2018-11-15 03:38] VITALS: BP 160/80; PULSE 76; RESP 21; O2SAT 97
== END 2018-11-15 03:44 | disposition home or self-care (01) ==
PROVIDERS: Emergency Provider Emergency Medicine; Family Provider Family Medicine; PCP Family Medicine
DX: R07.89 Other chest pain (principal); I25.10 Atherosclerotic heart disease of native coronary artery without angina pectoris; Z79.82 Long term (current) use of aspirin; Z79.899 Other long term (current) drug therapy; I25.2 Old myocardial infarction; Z95.1 Presence of aortocoronary bypass graft
CPT/HCPCS: 71045; 80053; 83690; 84484; 85025; 93005; 99284; A4216

== ENCOUNTER → 2019-02-15 15:21 | Outpatient (CLI) | payer MEDICARE, SELFPAY ==
[2019-02-15 14:48] VITALS: BMI 27.1
--- NOTE | 2019-02-15 15:31 | RAD_ITS ---
STUDY: X-RAY CHEST REASON FOR EXAM: Male, 73 years old. Shortness of breath, flulike symptoms TECHNIQUE: PA and lateral COMPARISON: 11/15/2018 FINDINGS: Patient is status post median sternotomy. Left lung is clear. There is minimal new interstitial opacities suggested in the right mid lung. There is no demonstrated pleural abnormality. Normal size heart. Normal mediastinum and caren. Normal visualized pulmonary arteries. Normal visualized aortic arch and descending thoracic aorta. There are diffuse degenerative changes of the visualized thoracic spine. Normal visualized ribs, clavicles, and shoulders. There is no demonstrated abnormality of the visualized soft tissue structures of the upper abdomen. RAD/Chest PA and Lateral IMPRESSION: Minimal interstitial opacity involving the right midlung only seen on PA view. Early or developing pneumonia not excluded. Electronically Signed: Boris Arango, at 0:24 EDT Tel , Service support ,
== END ==
PROVIDERS: Family Provider Family Medicine; PCP Family Medicine; Referring Provider Internal Medicine Cardiovascular Disease; Visit Provider Internal Medicine Cardiovascular Disease
DX: I10 Essential (primary) hypertension (principal); R50.9 Fever, unspecified; E78.5 Hyperlipidemia, unspecified; Z95.1 Presence of aortocoronary bypass graft
CPT/HCPCS: 36415; 71046; 87040

== ENCOUNTER 2019-02-17 09:46 | Observation (INO) | payer MEDICARE, SELFPAY ==
[2019-02-15 14:48] VITALS: BMI 27.1
[2019-02-17] VITALS (14 sets, daily range): BP systolic 117–133; BP diastolic 65–75; PULSE 72–89; RESP 10–24; TEMP 36.6–38.2; O2SAT 94–100; BMI 26.2; BMI 26.8
--- NOTE | 2019-02-17 10:00 | EKG12_ITS ---
Test Reason : WEAKNESS Blood Pressure : / mmHG Vent. Rate : 074 BPM Atrial Rate : 074 BPM P-R Int : 142 ms QRS Dur : 094 ms QT Int : 402 ms P-R-T Axes : 050 029 054 degrees QTc Int : 446 ms Sinus rhythm with marked sinus arrhythmia Possible Old IWMI Confirmed by AMY NAVARRETE, JIL ([id number]), book editor BREE RAMSEY ([id number]) on 02/21/2019 3:37:40 PM Referred By: Ibis Lucia Confirmed By:JIL REYES MD
--- NOTE | 2019-02-17 10:00 | RAD_ITS ---
STUDY: X-RAY CHEST REASON FOR EXAM: Male, 73 years old. Increasing weakness and fatigue. History of right-sided pneumonia. TECHNIQUE: Single AP portable view of the chest. COMPARISON: Comparison is made with prior study dated February 15, 2019. FINDINGS: There is been progressive infiltrate in the right midlung. Left lung is clear. There is no demonstrated pleural abnormality. Sternal cerclage wires and vascular clips are present from a prior sternotomy and coronary artery bypass graft procedure (CABG). Normal mediastinum and caren. Normal visualized pulmonary arteries. Normal visualized aortic arch and descending thoracic aorta. There are diffuse degenerative changes of the visualized thoracic spine. Normal visualized ribs, clavicles, and shoulders. There is no demonstrated abnormality of the visualized soft tissue structures of the upper abdomen. RAD/Chest 1 View (Portable) IMPRESSION: Progressive infiltration in the right midlung. Further follow-up is recommended. Electronically Signed: Dav Canela, at 10:33 EDT , Service support ,
--- NOTE | 2019-02-17 10:09 | ED.VISSUMM ---
- ER Visit Summary Date of Service: 02/17/19 Chief Complaint: Pneumonia History of Present Illness: The patient is a 73 M who was recently diagnosed with pneumonia as an outpatient by his PCP. He reports 4 days of fevers, sweats, chills, body aches. He was seen as an outpatient. It looks like he had some pneumonia on his x-ray. He was treated with Levaquin. He has taken 2 doses so far. Influenza testing was negative. He had some Tylenol at 530 this morning. He denies any cough, sputum, shortness of breath. Denies chest pain or headaches. Denies neurologic symptoms. Denies urinary symptoms. Denies any history of immune compromise. He does have a history of coronary disease and is status post bypass 7 months ago. Physical Examination: Afebrile and vital signs unremarkable. Alert and oriented. No acute distress. Cranial nerves grossly intact. Moves all extremities. Normal gait. Neck shows good range of motion. HEENT exam grossly unremarkable. Heart regular. Lungs clear. Abdomen soft. Extremities unremarkable. Patient has a rash to his right lower quadrant. It is erythematous, blanching, and skin is intact. Test Results: EKG, labs, cultures, chest x-ray, urinalysis performed. Emergency Department Course and Treatment: Patient will be evaluated for sepsis and sources of infection. He was treated with IV fluids while awaiting results. Lactate 2.7. Otherwise work-up was all fairly unremarkable. His chest x-ray showed an evolving right midlung infiltrate. Patient failed outpatient treatment with Levaquin. He is doing worse. He was treated with azithromycin and Rocephin here. I contacted the hospitalist to admit. Treatment Plan: As above Disposition: Admission Impression: 1. Pneumonia failed outpatient 2. Severe sepsis This note was generated with [employer] dictation software. It may contain incorrect words, spelling, and punctuation that were not noted in review of the chart prior to signing ED Disposition - Plan for ED Patient: Referrals: Florentin Marino DO [Primary Care Provider] -
[2019-02-17 10:35] LABS: Lyme Ab Screen Interpretation REF LAB
[2019-02-17] MEDS: 0.9% Normal Saline 1,000 ML 999 ML IV ×3 (10:35→14:45)
[2019-02-17 10:42] LABS: Absolute Lymphocyte Count 0.57 X10^3/uL (0.83-4.51); Absolute Neutrophil Count 4.2 X10^3/uL (2.0-7.7); Basophil# 0.01 X10^3/uL; Basophil% 0.2 % (0-1); Hemoglobin 12.6 g/dL (13.0-16.5); Lymphocyte # 0.57 X10^3/ul (4.0); Lymphocyte % 10.6 % (19-41); Mean Corp Hgb Conc 33.2 g/dL (32-36); Mean Corpuscular Hgb 31.7 pg (27.0-32.0); Mean Corpuscular Volume 95.7 fL (80-94); Mean Platelet Vol. 10.8 fl (6.2-12.0); Monocyte# 0.56 X10^3/uL; Monocyte% 10.4 % (0-10); NRBC Flagged by Analyzer 0 % (0-5); Neutrophil # 4.22 X10^3/uL (2.7-7.7); Neutrophil % 78.2 % (47-70); POSITIVE DIFFERENTIAL YES; Platelet Count 138 K/mm3 (150-450); RBC Distribution Width CV 13.3 % (11.6-14.6); RBC Distribution Width SD 47.6 fl (35.1-43.9); Red Blood Count 3.97 M/mm3 (4.6-6.2); White Blood Count 5.4 K/mm3 (4.4-11.0)
[2019-02-17 10:43] LABS: International Normalized Ratio 1.4; Prothrombin Time (Protime)PT. 16.5 SECONDS (11.7-14.9)
[2019-02-17 10:45] LABS: Partial Thromboplast Time 85.6 Seconds (24.1-36.2)
[2019-02-17 10:46] LABS: Differential Indicated SCAN CRITERIA MET
[2019-02-17 10:53] LABS: ALB/GLOB Ratio 0.6 RATIO (0.9-2.4); AST(SGOT) 27 U/L (15-37); Alanine Aminotransfer ALT/SGPT 43 U/L (16-61); Albumin, Serum 2.8 g/dL (3.2-5.0); Alkaline Phosphatase 39 U/L (45-117); Anion Gap 6 (5-15); BUN 31 mg/dL (7-18); BUN/Creat Ratio 19.7 RATIO (10-20); CPK Total, Creatine Kinase 118 U/L (39-308); Chloride 99 mmol/L (98-107); Creatinine, Serum 1.57 mg/dL (0.70-1.30); EST Glomerular Filtration Rate 46 mL/min (>60); Est Glom Filt Rate - Afr Amer 56 mL/min (>60); Estimated Creatinine Clearance 41.98 ml/min; Globulin 4.7 g/dL (2.2-4.2); Glucose 137 mg/dL (74-106); Potassium 4.1 mmol/L (3.5-5.1); Protein, Total 7.5 g/dL (6.4-8.2); Sodium Level 133 mmol/L (136-145)
[2019-02-17 11:02] LABS: Lactic Acid 2.7 mmol/L (0.4-2.0)
[2019-02-17] MEDS: Ceftriaxone 1 GM/50 ML BAG IV (11:29)
[2019-02-17] MEDS: 0.9% NaCl Peripheral Flush Adult/Peds IV (12:40)
[2019-02-17 12:44] LABS: Erythrocyte Sedimentation Rate 39 mm/hr (0-20)
[2019-02-17 12:56] LABS: Bilirubin, Direct 0.23 mg/dL (0.00-0.30)
[2019-02-17 13:37] LABS: Bacteria 0 SEEN /hpf (None Seen); Mucous, Urine 0 SEEN /hpf (<or=2+); White Blood Cells 0 SEEN /hpf (0-5)
[2019-02-17 13:44] LABS: Color, Urine Yellow (Yellow); Glucose, Dipstick Normal (Normal); Ketone-Dipstick Negative (Negative); Leukocyte Esterase-Dipstick Negative /ul (Negative); Nitrite-Dipstick Negative (Negative); Occult Blood-Urine 10 /ul (Negative); Protein-Dipstick 30 mg/dl (Negative); Urine Bilirubin Dipstick Negative (Negative); Urine Clarity Sl. Cloudy (Clear); Urine Urobilinogen 1 mg/dl (Normal)
[2019-02-17 13:56] LABS: Red Blood Cells-Urine 0-5 SEEN /hpf (0-5); Squamous Epithelial Cells - UA 0-5 SEEN /hpf (0-5)
[2019-02-17] MEDS: Famotidine 20 MG Tablet PO (14:00)
[2019-02-17 14:12] LABS: Magnesium 2.2 mg/dL (1.6-2.6); Phosphorus 3.4 mg/dL (2.5-4.9)
[2019-02-17 14:32] LABS: Reflex Lactate? Y
[2019-02-17 15:26] LABS: Lactic Acid 1.2 mmol/L (0.4-2.0)
[2019-02-17] MEDS: 0.9% Normal Saline 1,000 ML 150 ML IV ×2 (15:27→22:01)
[2019-02-17 16:29] LABS: M R Staph aureus DNA By PCR Negative (Negative); Probe Check PASS; Specimen Processing Control PASS
--- NOTE | 2019-02-17 16:41 | CHAPLAIN ---
Type of Pastoral Visit _x__ Initial Visit ___ Follow-up Visit ___ On-call Visit ___ General Patient Visit ___ Spiritual Assessment ___ Family Conference ___ Bereavement ___ Rapid Response ___ Code Blue ___ Other (describe below) Pastoral Care Referral From _x__ Patient ___ Family ___ Nurse ___ Physician ___ Flow Coordinator ___ Equipment Maintenance Supervisor ___ Other (describe below) Sacrament/Intervention _x__ Active listening ___ Anointing ___ Islam ___ Bereavement ___ Communion _x__ Anaya exploration ___ _x__ Life review _x__ Prayer ___ Reconciliation ___ Sacrament of Sick __x_ Supportive presence ___ Wedding ___ Other (describe below) Pastoral Comments
--- NOTE | 2019-02-17 17:46 | HP.PCM_ITS ---
Problem List (1) Community acquired pneumonia Status: Acute Qualifiers: Laterality: right (2) Hyponatremia Status: Acute (3) Acute kidney injury Status: Acute (4) Lactic acidosis Status: Acute (5) Dehydration Status: Acute (6) Macrocytic anemia Status: Acute Comment: etiology unclear (7) Essential (primary) hypertension Status: Chronic Comment: She denies this. He was on no medications prior to CABG in June 2018 (8) H/O coronary artery bypass surgery Status: Chronic Comment: CABG x 4 MILIAN-LAD, SVG-D1, SVG-OM1 and SVG-RCA 07/01/18 (9) Atherosclerosis of coronary artery of havasupai heart without angina pectoris Status: Chronic Comment: CABG x 4 MILIAN-LAD, SVG-D1, SVG-OM1 and SVG-RCA 07/01/18 (10) Hyperlipidemia Status: Chronic (11) Thrombocytopenia Status: Acute History of Present Illness Date of Admission: 02/17/19 Chief Complaint: high fevers associated with rigors, decreased appetite and weakness/fatigue The patient is a 73 year old M with a past medical history of coronary artery disease with CABG x4 in June 2018, skin cancers (squamous) and tobacco dependence in remission presented to the emergency department at [facility] on 02/17/2019 complaining of high fevers, up to 105.1 ?F, that started on 02/13/2019. He also had Rigors, decreased appetite and increasing weakness. He denied cough, shortness of breath, wheezing, cephalgia, stiff neck, sore throat, runny nose, dysuria, abdominal pain, nausea/vomiting, diarrhea. He was seen by Dr. Florentin Marino on 02/16/2019 and started on Levaquin 750 mg p.o. daily. Last night he continued to have high fevers, shaking chills and weakness and he was told by Dr. Marino to come to the emergency department. Vital signs at presentation to the emergency room were temperature 98, pulse rate 86, blood pressure 123/71, respiratory rate 18 and he was 98% saturated on room air. He had taken Tylenol a few hours prior to coming to the emergency department. CBC showed a normal white blood cell count at 5.4 with 78% neutrophils. Hemoglobin was 12.6 with an MCV of 95.7 and an increased RDW at 47.6. Platelets were low at 138,000. PT is mildly prolonged at 16.5 and the PTT is 85.6 and he is on no anticoagulants. He denied any history of bleeding dyscrasias. He had no problem with excessive blood loss with the CABG. CMP showed a sodium of 133 and a BUN of 31 with a creatinine of 1.57. LFTs were unremarkable. Lactic acid was 2.7. LFTs were unremarkable. Troponin was less than 0.015. CRP is 249 and the ESR is 39. Chest x-ray showed infiltrate in the right midlung. He was a admitted to the hospital with a diagnosis of community- acquired pneumonia and acute renal failure more likely than not secondary to dehydration from poor intake and high fevers. Levaquin was continued and Rocephin was also added. Past Medical History Past Medical History (Chronic Problems): Chronic Problems (Last Reviewed 02/15/19 @ 15:13 by Chin Stubbs MD) Essential (primary) hypertension (Chronic) She denies this. He was on no medications prior to CABG in June 2018 H/O coronary artery bypass surgery (Chronic 07/01/18) CABG x 4 MILIAN-LAD, SVG-D1, SVG-OM1 and SVG-RCA 07/01/18 Atherosclerosis of coronary artery of havasupai heart without angina pectoris (C hronic) CABG x 4 MILIAN-LAD, SVG-D1, SVG-OM1 and SVG-RCA 07/01/18 Hyperlipidemia (Chronic) Medical History: Medical History (Last Reviewed 02/17/19 @ 18:00 by Ibis Lucia DO) Essential (primary) hypertension (Chronic) I10 She denies this. He was on no medications prior to CABG in June 2018 Atherosclerosis of coronary artery of havasupai heart without angina pectoris (Chronic) I25.10 CABG x 4 MILIAN-LAD, SVG-D1, SVG-OM1 and SVG-RCA 07/01/18 Hyperlipidemia (Chronic) E78.5 Cervical spondylosis M47.812 Colon polyps K63.5 DDD (degenerative disc disease), lumbar M51.36 Erectile dysfunction N52.9 Osteoarthritis M19.90 Scoliosis M41.9 TIA (transient ischemic attack) Onset Date: 07/[address] w/ evidence Lacunar Infarct Vitamin D deficiency E55.9 Wound cellulitis after surgery T81.49XA LLE, SVG harvest site Carotid artery disease I77.9 Allergies No Known Allergies Allergy (Verified 02/17/19 09:49) Home Medications: Ambulatory Orders Medication Instructions Recorded aspirin 81 mg tablet,delayed 81 mg PO DAILY 06/22/18 release Acetaminophen [Tylenol Extra 500 mg PO Q4H PRN PRN 02/17/19 Strength] Atorvastatin Calcium 40 mg PO QHS 02/17/19 Metoprolol Tartrate [Lopressor 50 mg PO BID 02/17/19 (beta travis)] Surgical History: Surgical History (Last Reviewed 02/17/19 @ 18:00 by Ibis Lucia DO) H/O coronary artery bypass surgery (Chronic) Onset Date: 07/01/18 Z95.1 CABG x 4 MILIAN-LAD, SVG-D1, SVG-OM1 and SVG-RCA 07/01/18 History of appendectomy Z90.49 History of left heart catheterization Onset Date: 06/25/18 Z98.890 Triple-vessel disease involving a distal left main, proximal left anterior descending artery and diagonal vessel, and total right coronary artery. Hx of colonoscopy Z98.890 2014 Hx of colonoscopy with polypectomy Z98.890, Z86.010 Psychiatric History: No pertinent psych hx Lives: Spouse/ Significant Other Smoking Status: Former smoker - Quit smoking at 33 years of age. Tobacco Use: Non-smoker Alcohol: None Drugs: None - *Family History Maternal Family History: Family History (Last Reviewed 02/15/19 @ 15:13 by Chin Stubbs MD) Father Colon cancer Mother Diabetes Heart disease Hypertension CAD (coronary artery disease) CVA (cerebral vascular accident) Brother CVA (cerebral vascular accident) Myocardial infarction CAD (coronary artery disease) History Items: Diabetes, Hypertension, Stroke Paternal Family History: Family History (Last Reviewed 02/15/19 @ 15:13 by Chin Stubbs MD) Father Colon cancer Mother Diabetes Heart disease Hypertension CAD (coronary artery disease) CVA (cerebral vascular accident) Brother CVA (cerebral vascular accident) Myocardial infarction CAD (coronary artery disease) History Items: Cancer - : Sibling Family History: Family History (Last Reviewed 02/15/19 @ 15:13 by Chin Stubbs MD) Father Colon cancer Mother Diabetes Heart disease Hypertension CAD (coronary artery disease) CVA (cerebral vascular accident) Brother CVA (cerebral vascular accident) Myocardial infarction CAD (coronary artery disease) History Items: Heart Disease Review of Systems Constitutional: Reports: Chills, Fever, Weakness. Denies: Weight Change Eyes: Denies: Blurred vision, Redness HEENT: Denies: Ear Pain, Head Aches, Sinus Congestion, Sinus Drainage, Sore Throat Cardiovascular: Denies: Chest Pain, Edema, Light Headedness, Palpitations, Syncope Respiratory: Denies: Cough, Hemoptysis, Shortness of Breath, Shortness of breath at rest, Sputum production, Wheezing Gastrointestinal: Denies: Abdominal Pain, Diarrhea, Nausea, Vomiting Genitourinary: Denies: Dysuria, Hesitancy Musculoskeletal: Denies: Joint Pain, Joint Tenderness Skin: Denies: Jaundice, Rash, Wounds Neurological: Denies: Change in Speech, Confusion, Focal weakness, Numbness, Tingling, Tremor, Seizures Psychiatric: Denies: Anxiety, Depression, Homicidal Ideations, Suicidal Ideations Endocrine: Denies: Heat/ Cold Intolerance, Hx of Thyroiditis Hematologic/ Lymphatic: Denies: Easy Bruising, Easy Bleeding, Hx of blood clot VTE Information - Inpt Only VTE Present on Admission: No VTE Mechan Device Prophylaxis: SCD's VTE Pharm Prophylaxis ordered?: Yes Patient Problems: Active and Suspected Problems (Last Reviewed 02/15/19 @ 15:13 by Chin Stubbs MD) Community acquired pneumonia (Acute) Hyponatremia (Acute) Acute kidney injury (Acute) Lactic acidosis (Acute) Dehydration (Acute) Macrocytic anemia (Acute) etiology unclear Thrombocytopenia (Acute) - Physical Exam General: Alert, Oriented x3, Cooperative, No apparent distress, Well developed, Well nourished HEENT: Atraumatic, PERRLA, EOMI, Normocephalic, - - No pharyngeal injection or exudates. Oral: No Gingival or Mucosal Lesions/ Ulcerations, Dry Mucosa Neck: Supple, No JVD, Negative Carotid Bruits, Negative Hepatojugular Reflux, No Nodes, No Nuchal Rigidity, Trachea Midline Lungs: No rhonchi, No wheeze, Rales - Rales in the right midlung posteriorly, - - Not tachypneic, no conversational dyspnea, no accessory muscle use, symmetric chest expansion. Cardiovascular: Regular rate, Regular Rhythm, Normal S1, Normal S2, No murmurs, No Ectopic Activity, No rub noted, No Gallop Abdomen: Bowel Sounds Present, Soft, Non Tender, Non-Distended Extremities: No clubbing, No cyanosis, No edema, No Calf Tenderness, Peripheral Pulses Normal Skin: No rashes, No breakdown Musculoskeletal: No Muscle Wasting Neurological: Cranial nerves II-XII grossly intact, Neuro grossly intact Psych/Mental Status: Normal Affect, Appropriate Vital Signs Temp Pulse Resp BP Pulse Ox 100.2 F H 89 14 128/75 H 97 02/17/19 17:21 02/17/19 17:21 02/17/19 17:21 02/17/19 17:21 02/17/19 17:21 Oxygen Delivery Method Room Air Weight: 187 lb Body Mass Index (BMI) 26.8 Intake and Output for Last 24 Hours 02/15/19 02/16/19 02/17/19 23:59 23:59 23:59 Intake Total 3204.30 / 3204.30 Output Total 300 / 300 Balance 2904.30 / 2904.30 Microbiology Past 72 Hours 02/17/19 16:55 Stool Occult Blood (CANDIDA) - Final Stool 02/17/19 13:30 Streptococcus pneumoniae Antigen (M - Final Urine, Clean Catch 02/17/19 13:30 Legionella Antigen - Final Urine, Clean Catch Laboratory Tests Past 24 Hrs 02/17/19 02/17/19 02/17/19 10:25 10:25 10:25 WBC 5.4 RBC 3.97 L Hgb 12.6 L Hct 38.0 L MCV 95.7 H MCH 31.7 MCHC 33.2 RDW Std Deviation 47.6 H RDW Coeff of Darryl 13.3 Plt Count 138 L MPV 10.8 Immature Gran % (Auto) 0.600 Neut % (Auto) 78.2 H Lymph % (Auto) 10.6 L [place] % (Auto) 10.4 H Eos % (Auto) 0.0 Baso % (Auto) 0.2 Absolute Neuts (auto) 4.2 Absolute Lymphs (auto) 0.57 L Nucleated RBC % 0 ESR PT 16.5 H INR 1.4 APTT 85.6 H Sodium 133 L Potassium 4.1 Chloride 99 Carbon Dioxide 28.0 Anion Gap 6 BUN 31 H Creatinine 1.57 H Estim Creat Clear Calc 41.98 Est GFR (MDRD) Af Amer 56 L Est GFR (MDRD) Non-Af 46 L BUN/Creatinine Ratio 19.7 Glucose 137 H Lactic Acid Calcium 9.0 Phosphorus Magnesium Total Bilirubin 0.60 Direct Bilirubin AST 27 ALT 43 Alkaline Phosphatase 39 L Total Creatine Kinase 118 Troponin I < 0.015 C-React Prot Ext Range Total Protein 7.5 Albumin 2.8 L Globulin 4.7 H Albumin/Globulin Ratio 0.6 L Urine Color Urine Clarity Urine pH Ur Specific [place] Urine Protein Urine Glucose (UA) Urine Ketones Urine Occult Blood Urine Nitrite Urine Bilirubin Urine Urobilinogen Ur Leukocyte Esterase Urine RBC Urine WBC Ur Squamous Epith Cells Urine Bacteria Urine Mucus Lyme Total Antibody Lyme Disease Interpret West Nile Virus IgG Ab West Nile Virus IgM Ab MRSA (PCR) 02/17/19 02/17/19 02/17/19 10:25 10:25 10:25 WBC RBC Hgb Hct MCV MCH MCHC RDW Std Deviation RDW Coeff of Darryl Plt Count MPV Immature Gran % (Auto) Neut % (Auto) Lymph % (Auto) [place] % (Auto) Eos % (Auto) Baso % (Auto) Absolute Neuts (auto) Absolute Lymphs (auto) Nucleated RBC % ESR 39 H PT INR APTT Sodium Potassium Chloride Carbon Dioxide Anion Gap BUN Creatinine Estim Creat Clear Calc Est GFR (MDRD) Af Amer Est GFR (MDRD) Non-Af BUN/Creatinine Ratio Glucose Lactic Acid 2.7 H Calcium Phosphorus Magnesium Total Bilirubin Direct Bilirubin AST ALT Alkaline Phosphatase Total Creatine Kinase Troponin I C-React Prot Ext Range Total Protein Albumin Globulin Albumin/Globulin Ratio Urine Color Urine Clarity Urine pH Ur Specific [place] Urine Protein Urine Glucose (UA) Urine Ketones Urine Occult Blood Urine Nitrite Urine Bilirubin Urine Urobilinogen Ur Leukocyte Esterase Urine RBC Urine WBC Ur Squamous Epith Cells Urine Bacteria Urine Mucus Lyme Total Antibody Pending Lyme Disease Interpret Pending West Nile Virus IgG Ab Pending West Nile Virus IgM Ab Pending MRSA (PCR) 02/17/19 02/17/19 02/17/19 10:25 10:25 13:30 WBC RBC Hgb Hct MCV MCH MCHC RDW Std Deviation RDW Coeff of Darryl Plt Count MPV Immature Gran % (Auto) Neut % (Auto) Lymph % (Auto) [place] % (Auto) Eos % (Auto) Baso % (Auto) Absolute Neuts (auto) Absolute Lymphs (auto) Nucleated RBC % ESR PT INR APTT Sodium Potassium Chloride Carbon Dioxide Anion Gap BUN Creatinine Estim Creat Clear Calc Est GFR (MDRD) Af Amer Est GFR (MDRD) Non-Af BUN/Creatinine Ratio Glucose Lactic Acid Calcium Phosphorus 3.4 Magnesium 2.2 Total Bilirubin Cancelled Direct Bilirubin 0.23 AST Cancelled ALT Cancelled Alkaline Phosphatase Cancelled Total Creatine Kinase Troponin I C-React Prot Ext Range 249.00 H Total Protein Cancelled Albumin Cancelled Globulin Cancelled Albumin/Globulin Ratio Urine Color Yellow Urine Clarity Sl. Cloudy Urine pH 6.0 Ur Specific [place] 1.020 Urine Protein 30 H Urine Glucose (UA) Normal Urine Ketones Negative Urine Occult Blood 10 H Urine Nitrite Negative Urine Bilirubin Negative Urine Urobilinogen 1 H Ur Leukocyte Esterase Negative Urine RBC 0-5 SEEN Urine WBC 0 SEEN Ur Squamous Epith Cells 0-5 SEEN Urine Bacteria 0 SEEN Urine Mucus 0 SEEN Lyme Total Antibody Lyme Disease Interpret West Nile Virus IgG Ab West Nile Virus IgM Ab MRSA (PCR) 02/17/19 02/17/19 14:00 14:46 WBC RBC Hgb Hct MCV MCH MCHC RDW Std Deviation RDW Coeff of Darryl Plt Count MPV Immature Gran % (Auto) Neut % (Auto) Lymph % (Auto) [place] % (Auto) Eos % (Auto) Baso % (Auto) Absolute Neuts (auto) Absolute Lymphs (auto) Nucleated RBC % ESR PT INR APTT Sodium Potassium Chloride Carbon Dioxide Anion Gap BUN Creatinine Estim Creat Clear Calc Est GFR (MDRD) Af Amer Est GFR (MDRD) Non-Af BUN/Creatinine Ratio Glucose Lactic Acid 1.2 Calcium Phosphorus Magnesium Total Bilirubin Direct Bilirubin AST ALT Alkaline Phosphatase Total Creatine Kinase Troponin I C-React Prot Ext Range Total Protein Albumin Globulin Albumin/Globulin Ratio Urine Color Urine Clarity Urine pH Ur Specific [place] Urine Protein Urine Glucose (UA) Urine Ketones Urine Occult Blood Urine Nitrite Urine Bilirubin Urine Urobilinogen Ur Leukocyte Esterase Urine RBC Urine WBC Ur Squamous Epith Cells Urine Bacteria Urine Mucus Lyme Total Antibody Lyme Disease Interpret West Nile Virus IgG Ab West Nile Virus IgM Ab MRSA (PCR) Negative Assessment/Plan All Active Problems (Last Reviewed 02/15/19 @ 15:13 by Chin Stubbs MD) Community acquired pneumonia (Acute) Hyponatremia (Acute) Acute kidney injury (Acute) Lactic acidosis (Acute) Dehydration (Acute) Macrocytic anemia (Acute) Thrombocytopenia (Acute) Chest pain (Resolved) Lightheadedness (Resolved) Impressions 1. Community-acquired pneumonia -admitted to the MedSurg unit. Will continue Levaquin and add Rocephin. Urine for Legionella and streptococcal antigens was ordered. Respiratory panel. Sputum culture if he is able to produce a sputum. Blood cultures x2 ordered in the emergency department. 2. Acute kidney injury-more likely than not secondary to dehydration. IV fluids ordered. Recheck lab in the a.m. 3. Hyponatremia-IV normal saline ordered 4. Dehydration 5. Coronary artery disease with history of CABG x4 in June 2018 at [facility] 6. Anemia-unclear etiology. Hemoccult stool ordered. We will also check TSH and serum and urine protein electrophoresis. 7. Elevated PT and PTT-no history of coagulopathy and no history of excessive bleeding with surgery. 8. Thrombocytopenia-suspect secondary to infection. Continue to monitor Code Visit Inpatient E&M: 42905 Init Hosp L2
[2019-02-17] MEDS: Atorvastatin Calcium 40 MG Tablet PO (20:22)
[2019-02-17] MEDS: guaiFENesin 1,200 MG Tablet 1200 MG PO (20:22)
[2019-02-17] MEDS: Acetaminophen 325 MG Tablet 650 MG PO (20:22)
[2019-02-17] MEDS: Metoprolol Tartrate 50 MG Tablet PO (20:22)
[2019-02-18 02:45] VITALS: BP 117/69; PULSE 78; RESP 20; TEMP 37; O2SAT 95
[2019-02-18] MEDS: 0.9% Normal Saline 1,000 ML 150 ML IV (04:58)
[2019-02-18 06:17] LABS: Absolute Lymphocyte Count 0.74 X10^3/uL (0.83-4.51); Basophil# 0.01 X10^3/uL; Basophil% 0.3 % (0-1); Eosinophil# 0.02 X10^3/uL; Eosinophils% 0.6 % (0-5); Hematocrit 34.3 % (40-54); Hemoglobin 11.4 g/dL (13.0-16.5); Lymphocyte # 0.74 X10^3/ul (4.0); Lymphocyte % 22.9 % (19-41); Mean Corp Hgb Conc 33.2 g/dL (32-36); Mean Corpuscular Hgb 31.8 pg (27.0-32.0); Mean Corpuscular Volume 95.5 fL (80-94); Mean Platelet Vol. 11.1 fl (6.2-12.0); Monocyte# 0.42 X10^3/uL; NRBC Flagged by Analyzer 0 % (0-5); Neutrophil # 2.02 X10^3/uL (2.7-7.7); Neutrophil % 62.6 % (47-70); Platelet Count 110 K/mm3 (150-450); RBC Distribution Width CV 13.3 % (11.6-14.6); RBC Distribution Width SD 47.4 fl (35.1-43.9); Red Blood Count 3.59 M/mm3 (4.6-6.2); White Blood Count 3.2 K/mm3 (4.4-11.0)
[2019-02-18 06:45] LABS: Anion Gap 5 (5-15); BUN 20 mg/dL (7-18); BUN/Creat Ratio 17.4 RATIO (10-20); Calcium,Total 8.5 mg/dL (8.5-10.1); Chloride 107 mmol/L (98-107); Creatinine, Serum 1.15 mg/dL (0.70-1.30); EST Glomerular Filtration Rate 66 mL/min (>60); Est Glom Filt Rate - Afr Amer 80 mL/min (>60); Estimated Creatinine Clearance 57.31 ml/min; Glucose 96 mg/dL (74-106); Potassium 3.8 mmol/L (3.5-5.1); Sodium Level 139 mmol/L (136-145)
--- NOTE | 2019-02-18 07:01 | PCM.PROGNOTE ---
Patient Problems: Active and Suspected Problems (Last Reviewed 02/17/19 @ 18:00 by Ibis Lucia DO) Community acquired pneumonia (Acute) Hyponatremia (Acute) Acute kidney injury (Acute) Lactic acidosis (Acute) Dehydration (Acute) Macrocytic anemia (Acute) etiology unclear Thrombocytopenia (Acute) Subjective: Day #3 Levaquin Day #2 Rocephin All events of the past 24 hours been reviewed. T-max is 100.8 ?F at 8 PM last evening. Current temp is 98.6. Hemodynamically stable and maintaining appropriate oxygen saturation on room air. All lab was personally reviewed. The white blood cell count today is 3.2 with an unremarkable differential. Hemoglobin is 11.4 following hydration. Platelet count is 110,000 today, down from 138,000 at admission. BMP shows a creatinine of 1.15, down from 1.57 at admission. UA had 0 WBCs and 0-5 RBCs. MRSA nasal swab was negative. Stool for occult blood was negative. Legionella and streptococcal antigens in the urine were negative. Respiratory panel was negative. Influenza was negative. - Physical Exam Vital Signs Temp Pulse Resp BP Pulse Ox 98.6 F 78 20 H 117/69 95 02/18/19 02:45 02/18/19 02:45 02/18/19 02:45 02/18/19 02:45 02/18/19 02:45 Oxygen Delivery Method Room Air Weight: 187 lb Body Mass Index (BMI) 26.8 Intake and Output for Last 24 Hours 02/16/19 02/17/19 02/18/19 23:59 23:59 23:59 Intake Total 4186.80 / 4386.80 1350 / 1350 Output Total 300 / 800 1200 / 1200 Balance 3886.80 / 3586.80 150 / 150 Microbiology Past 72 Hours 02/17/19 13:20 Respiratory Panel (PCR) - Final Mucosa - Nasopharyngeal 02/17/19 16:55 Stool Occult Blood (CANDIDA) - Final Stool 02/17/19 13:30 Streptococcus pneumoniae Antigen (M - Final Urine, Clean Catch 02/17/19 13:30 Legionella Antigen - Final Urine, Clean Catch Laboratory Tests Past 24 Hrs 02/17/19 02/17/19 02/17/19 10:25 10:25 10:25 WBC 5.4 RBC 3.97 L Hgb 12.6 L Hct 38.0 L MCV 95.7 H MCH 31.7 MCHC 33.2 RDW Std Deviation 47.6 H RDW Coeff of Darryl 13.3 Plt Count 138 L MPV 10.8 Immature Gran % (Auto) 0.600 Neut % (Auto) 78.2 H Lymph % (Auto) 10.[address] [place] % (Auto) 10.4 H Eos % (Auto) 0.0 Baso % (Auto) 0.2 Absolute Neuts (auto) 4.2 Absolute Lymphs (auto) 0.57 L Nucleated RBC % 0 ESR PT 16.5 H INR 1.4 APTT 85.6 H Sodium 133 L Potassium 4.1 Chloride 99 Carbon Dioxide 28.0 Anion Gap 6 BUN 31 H Creatinine 1.57 H Estim Creat Clear Calc 41.98 Est GFR (MDRD) Af Amer 56 L Est GFR (MDRD) Non-Af 46 L BUN/Creatinine Ratio 19.7 Glucose 137 H Lactic Acid Calcium 9.0 Phosphorus Magnesium Total Bilirubin 0.60 Direct Bilirubin AST 27 ALT 43 Alkaline Phosphatase 39 L Total Creatine Kinase 118 Troponin I < 0.015 C-React Prot Ext Range Total Protein 7.5 Albumin 2.8 L Globulin 4.7 H Albumin/Globulin Ratio 0.6 L Urine Color Urine Clarity Urine pH Ur Specific [place] Urine Protein Urine Glucose (UA) Urine Ketones Urine Occult Blood Urine Nitrite Urine Bilirubin Urine Urobilinogen Ur Leukocyte Esterase Urine RBC Urine WBC Ur Squamous Epith Cells Urine Bacteria Urine Mucus Lyme Total Antibody Lyme Disease Interpret West Nile Virus IgG Ab West Nile Virus IgM Ab MRSA (PCR) 02/17/19 02/17/19 02/17/19 10:25 10:25 10:25 WBC RBC Hgb Hct MCV MCH MCHC RDW Std Deviation RDW Coeff of Darryl Plt Count MPV Immature Gran % (Auto) Neut % (Auto) Lymph % (Auto) [place] % (Auto) Eos % (Auto) Baso % (Auto) Absolute Neuts (auto) Absolute Lymphs (auto) Nucleated RBC % ESR 39 H PT INR APTT Sodium Potassium Chloride Carbon Dioxide Anion Gap BUN Creatinine Estim Creat Clear Calc Est GFR (MDRD) Af Amer Est GFR (MDRD) Non-Af BUN/Creatinine Ratio Glucose Lactic Acid 2.7 H Calcium Phosphorus Magnesium Total Bilirubin Direct Bilirubin AST ALT Alkaline Phosphatase Total Creatine Kinase Troponin I C-React Prot Ext Range Total Protein Albumin Globulin Albumin/Globulin Ratio Urine Color Urine Clarity Urine pH Ur Specific [place] Urine Protein Urine Glucose (UA) Urine Ketones Urine Occult Blood Urine Nitrite Urine Bilirubin Urine Urobilinogen Ur Leukocyte Esterase Urine RBC Urine WBC Ur Squamous Epith Cells Urine Bacteria Urine Mucus Lyme Total Antibody Pending Lyme Disease Interpret Pending West Nile Virus IgG Ab Pending West Nile Virus IgM Ab Pending MRSA (PCR) 02/17/19 02/17/19 02/17/19 10:25 10:25 13:30 WBC RBC Hgb Hct MCV MCH MCHC RDW Std Deviation RDW Coeff of Darryl Plt Count MPV Immature Gran % (Auto) Neut % (Auto) Lymph % (Auto) [place] % (Auto) Eos % (Auto) Baso % (Auto) Absolute Neuts (auto) Absolute Lymphs (auto) Nucleated RBC % ESR PT INR APTT Sodium Potassium Chloride Carbon Dioxide Anion Gap BUN Creatinine Estim Creat Clear Calc Est GFR (MDRD) Af Amer Est GFR (MDRD) Non-Af BUN/Creatinine Ratio Glucose Lactic Acid Calcium Phosphorus 3.4 Magnesium 2.2 Total Bilirubin Cancelled Direct Bilirubin 0.23 AST Cancelled ALT Cancelled Alkaline Phosphatase Cancelled Total Creatine Kinase Troponin I C-React Prot Ext Range 249.00 H Total Protein Cancelled Albumin Cancelled Globulin Cancelled Albumin/Globulin Ratio Urine Color Yellow Urine Clarity Sl. Cloudy Urine pH 6.0 Ur Specific [place] 1.020 Urine Protein 30 H Urine Glucose (UA) Normal Urine Ketones Negative Urine Occult Blood 10 H Urine Nitrite Negative Urine Bilirubin Negative Urine Urobilinogen 1 H Ur Leukocyte Esterase Negative Urine RBC 0-5 SEEN Urine WBC 0 SEEN Ur Squamous Epith Cells 0-5 SEEN Urine Bacteria 0 SEEN Urine Mucus 0 SEEN Lyme Total Antibody Lyme Disease Interpret West Nile Virus IgG Ab West Nile Virus IgM Ab MRSA (PCR) 02/17/19 02/17/19 02/18/19 14:00 14:46 05:29 WBC RBC Hgb Hct MCV MCH MCHC RDW Std Deviation RDW Coeff of Darryl Plt Count MPV Immature Gran % (Auto) Neut % (Auto) Lymph % (Auto) [place] % (Auto) Eos % (Auto) Baso % (Auto) Absolute Neuts (auto) Absolute Lymphs (auto) Nucleated RBC % ESR PT INR APTT Sodium 139 Potassium 3.8 Chloride 107 Carbon Dioxide 27.0 Anion Gap 5 BUN 20 H Creatinine 1.15 Estim Creat Clear Calc 57.31 Est GFR (MDRD) Af Amer 80 Est GFR (MDRD) Non-Af 66 BUN/Creatinine Ratio 17.4 Glucose 96 Lactic Acid 1.2 Calcium 8.5 Phosphorus Magnesium Total Bilirubin Direct Bilirubin AST ALT Alkaline Phosphatase Total Creatine Kinase Troponin I C-React Prot Ext Range Total Protein Albumin Globulin Albumin/Globulin Ratio Urine Color Urine Clarity Urine pH Ur Specific [place] Urine Protein Urine Glucose (UA) Urine Ketones Urine Occult Blood Urine Nitrite Urine Bilirubin Urine Urobilinogen Ur Leukocyte Esterase Urine RBC Urine WBC Ur Squamous Epith Cells Urine Bacteria Urine Mucus Lyme Total Antibody Lyme Disease Interpret West Nile Virus IgG Ab West Nile Virus IgM Ab MRSA (PCR) Negative 02/18/19 05:29 WBC 3.2 L RBC 3.59 L Hgb 11.4 L Hct 34.3 L MCV 95.5 H MCH 31.8 MCHC 33.2 RDW Std Deviation 47.4 H RDW Coeff of Darryl 13.3 Plt Count 110 L MPV 11.1 Immature Gran % (Auto) 0.600 Neut % (Auto) 62.6 Lymph % (Auto) 22.9 [place] % (Auto) 13.0 H Eos % (Auto) 0.6 Baso % (Auto) 0.3 Absolute Neuts (auto) 2.0 Absolute Lymphs (auto) 0.74 L Nucleated RBC % 0 ESR PT INR APTT Sodium Potassium Chloride Carbon Dioxide Anion Gap BUN Creatinine Estim Creat Clear Calc Est GFR (MDRD) Af Amer Est GFR (MDRD) Non-Af BUN/Creatinine Ratio Glucose Lactic Acid Calcium Phosphorus Magnesium Total Bilirubin Direct Bilirubin AST ALT Alkaline Phosphatase Total Creatine Kinase Troponin I C-React Prot Ext Range Total Protein Albumin Globulin Albumin/Globulin Ratio Urine Color Urine Clarity Urine pH Ur Specific [place] Urine Protein Urine Glucose (UA) Urine Ketones Urine Occult Blood Urine Nitrite Urine Bilirubin Urine Urobilinogen Ur Leukocyte Esterase Urine RBC Urine WBC Ur Squamous Epith Cells Urine Bacteria Urine Mucus Lyme Total Antibody Lyme Disease Interpret West Nile Virus IgG Ab West Nile Virus IgM Ab MRSA (PCR) Medical Necessity - Tobacco Use Smoking Status: Former smoker - Quit smoking at 33 years of age. Tobacco Use: Non-smoker Assessment/Plan All Active Problems (Last Reviewed 02/17/19 @ 18:00 by Ibis Lucia DO) Community acquired pneumonia (Acute) Hyponatremia (Acute) Acute kidney injury (Acute) Lactic acidosis (Acute) Dehydration (Acute) Macrocytic anemia (Acute) Thrombocytopenia (Acute) Chest pain (Resolved) Lightheadedness (Resolved)
[2019-02-18 07:16] VITALS: O2SAT 94
[2019-02-18 08:45] VITALS: BP 111/66; PULSE 76; RESP 20; TEMP 36.9; O2SAT 97
[2019-02-18] MEDS: Ceftriaxone 1 GM/50 ML BAG IV (10:49)
[2019-02-18] MEDS: Famotidine 20 MG Tablet PO (10:55)
[2019-02-18] MEDS: guaiFENesin 1,200 MG Tablet 1200 MG PO (10:55)
[2019-02-18 10:56] VITALS: BP 111/66; PULSE 76
[2019-02-18] MEDS: Aspirin E.C. 81 MG Tablet PO (10:56)
[2019-02-18] MEDS: Metoprolol Tartrate 50 MG Tablet PO (10:56)
--- NOTE | 2019-02-18 11:10 | CASEMGMT ---
RN CM Face to Face with patient for initial transition planning/care coordination assessment. RN CM introduced self and role at [facility]. Patient lying in bed, alert and oriented, at bedside. Patient willing to participate in assessment and is able to answer all questions appropriately. Care providers, pharmacy, and demographics verified. Patient wishes to discharge home, denies need for home health at this time. Patient states he has no further needs or concerns at this time. CM to follow for discharge planning needs that may arise. PCP: Jamila Specialists: Evelyne supervisor travel information center Preferred Pharmacy: [facility] Insurance: [employer] [facility] PP Prescription Benefit: yes Living Will/HPOA: yes, Bozena Gold LNOK: Living Arrangements: Patient lives with in 1 story home, patient is independent Transportation: self/ DME/HHC: Patient denies DME. Patient has had HHC in the past setup through [facility]. Denies need for HHC at this time. Disposition Plan: Patient to discharge home with family support and follow-up plans in-place. Siobhan GREGORY, RN, CM
[2019-02-18 11:26] LABS: Cholesterol 80 mg/dL (200); High Density Lipoprotein 13 mg/dL; Triglycerides 157 mg/dL; Very Low Density Lipoprotein 31 mg/dL (5-40)
[2019-02-18] MEDS: levoFLOXacin IV 750 MG/150 ML BAG 100 MG IV (11:39)
--- NOTE | 2019-02-18 11:51 | DCINST_ITS ---
- Discharge Diagnoses Current Active Problems: Current Active and Chronic Problems (Last Reviewed 02/17/19 @ 18:00 by Ibis Lucia DO) Community acquired pneumonia (Acute) Hyponatremia (Acute) Acute kidney injury (Acute) Lactic acidosis (Acute) Dehydration (Acute) Macrocytic anemia (Acute) etiology unclear Thrombocytopenia (Acute) You will use the following diet at home:: Cardiac Your food should be the consistency of: Regular Your liquids should be the consistency of: Regular/Thin Discharge Activity: - - Gradually return to normal activity Call your doctor if you observe: Shortness of breath, Dizziness, Fainting spells, Chest pain, Calf discomfort, - - Call your PCP if severe diarrhea ( > 5 stools a day), painful sores in the mouth, painful swallowing, rash or itching. Taking a probiotic such as Lactobacillus or Kefir can help with loose stools while taking antibiotics. Additional Instructions: I think the reason you are feeling better is the Levaquin kicked in and you were rehydrated. I do not think you need a second antibiotic. You can finish the Levaquin you have at home given to you by Dr. Marino. the work up for infectious causes of PNA has been negative. You are anemic. We sent a sample of your stool to the lab and it has no blood in it. I recommend you follow up with Dr. Marino to search for a cause of the anemia. Follow up with him next week. High fevers and PNA take a lot out of you. Don't overtax yourself for the next week. Make sure you are getting good rest and that you are eating well. I recommend you start a probiotic daily while on antibiotics to help with loose stool. Take care of yourself. It was a pleasure taking care of you in the hospital and also meeting Bozena. If you ever need to be in the hospital again I would be happy to care for you. Pending Tests on Discharge: blood culture results Allergies/Adverse Reactions: Allergies No Known Allergies Allergy (Verified 02/17/19 09:49) Medications to take at Discharge aspirin 81 mg tablet,delayed release 81 mg PO DAILY 06/22/18 Acetaminophen [Tylenol Extra Strength] 500 mg PO Q4H PRN PRN 02/17/19 Atorvastatin Calcium 40 mg PO QHS 02/17/19 Metoprolol Tartrate [Lopressor (beta travis)] 50 mg PO BID 02/17/19 levoFLOXacin tablet [Levaquin tablet] 750 mg PO DAILY #1 tab 02/18/19 The following prescriptions were given: levoFLOXacin tablet [Levaquin tablet] 750 mg PO DAILY #1 tab Primary Care Physician: Florentin Marino DO [Primary Care Provider] - Please follow up with your Primary Care Physician in: next week Test Results: Test results from this visit will be discussed in further detail at your follow- up appointment, if applicable. Proposed Discharge Date: 02/18/19
--- NOTE | 2019-02-18 12:02 | PCM.DC.SUM ---
Discharge Date and Diagnosis - Problem List Patient Problems: Active and Suspected Problems (Last Reviewed 02/17/19 @ 18:00 by Ibis Lucia DO) Community acquired pneumonia (Acute) Thrombocytopenia (Acute) Date of Admission: 02/17/19 Date of Discharge: 02/18/19 - Primary Discharge Diagnosis Active and Suspected Problems (Last Reviewed 02/17/19 @ 18:00 by Ibis Lucia DO) Community acquired pneumonia (Acute) Thrombocytopenia (Acute) Dehydration - resolved BOB - resolved Hyponatremia - resolved Doses-resolved - Secondary Discharge Diagnosis Chronic Problems (Last Reviewed 02/17/19 @ 18:00 by Ibis Lucia DO) Macrocytic anemia (Chronic) etiology unclear Essential (primary) hypertension (Chronic) He denies this. He was on no medications prior to CABG in June 2018 H/O coronary artery bypass surgery (Chronic 07/01/18) CABG x 4 MILIAN-LAD, SVG-D1, SVG-OM1 and SVG-RCA 07/01/18 Atherosclerosis of coronary artery of [place] heart without angina pectoris (Chronic) CABG x 4 MILIAN-LAD, SVG-D1, SVG-OM1 and SVG-RCA 07/01/18 Hyperlipidemia (Chronic) Hospital Course and Treatment Imaging Results: Clinical Impression(s) from Imaging Studies Chest X-Ray 02/17/19 10:00 IMPRESSION: Progressive infiltration in the right midlung. Further follow-up is recommended. Electronically Signed: Dav Hilton, at 10:33 EDT , Service support , Laboratory Results - last 24 hr 02/17/19 02/17/19 02/17/19 10:25 10:25 10:25 WBC RBC Hgb Hct MCV MCH MCHC RDW Std Deviation RDW Coeff of Darryl Plt Count MPV Immature Gran % (Auto) Neut % (Auto) Lymph % (Auto) [place] % (Auto) Eos % (Auto) Baso % (Auto) Absolute Neuts (auto) Absolute Lymphs (auto) Nucleated RBC % ESR 39 H Sodium Potassium Chloride Carbon Dioxide Anion Gap BUN Creatinine Estim Creat Clear Calc Est GFR (MDRD) Af Amer Est GFR (MDRD) Non-Af BUN/Creatinine Ratio Glucose Lactic Acid Calcium Phosphorus 3.4 Magnesium 2.2 Total Bilirubin Cancelled Direct Bilirubin 0.23 AST Cancelled ALT Cancelled Alkaline Phosphatase Cancelled C-React Prot Ext Range 249.00 H Total Protein Cancelled Albumin Cancelled Globulin Cancelled Triglycerides Cholesterol LDL Cholesterol VLDL Cholesterol HDL Cholesterol Urine Color Urine Clarity Urine pH Ur Specific [place] Urine Protein Urine Glucose (UA) Urine Ketones Urine Occult Blood Urine Nitrite Urine Bilirubin Urine Urobilinogen Ur Leukocyte Esterase Urine RBC Urine WBC Ur Squamous Epith Cells Urine Bacteria Urine Mucus MRSA (PCR) 02/17/19 02/17/19 02/17/19 13:30 14:00 14:46 WBC RBC Hgb Hct MCV MCH MCHC RDW Std Deviation RDW Coeff of Darryl Plt Count MPV Immature Gran % (Auto) Neut % (Auto) Lymph % (Auto) [place] % (Auto) Eos % (Auto) Baso % (Auto) Absolute Neuts (auto) Absolute Lymphs (auto) Nucleated RBC % ESR Sodium Potassium Chloride Carbon Dioxide Anion Gap BUN Creatinine Estim Creat Clear Calc Est GFR (MDRD) Af Amer Est GFR (MDRD) Non-Af BUN/Creatinine Ratio Glucose Lactic Acid 1.2 Calcium Phosphorus Magnesium Total Bilirubin Direct Bilirubin AST ALT Alkaline Phosphatase C-React Prot Ext Range Total Protein Albumin Globulin Triglycerides Cholesterol LDL Cholesterol VLDL Cholesterol HDL Cholesterol Urine Color Yellow Urine Clarity Sl. Cloudy Urine pH 6.0 Ur Specific [place] 1.020 Urine Protein 30 H Urine Glucose (UA) Normal Urine Ketones Negative Urine Occult Blood 10 H Urine Nitrite Negative Urine Bilirubin Negative Urine Urobilinogen 1 H Ur Leukocyte Esterase Negative Urine RBC 0-5 SEEN Urine WBC 0 SEEN Ur Squamous Epith Cells 0-5 SEEN Urine Bacteria 0 SEEN Urine Mucus 0 SEEN MRSA (PCR) Negative 02/18/19 02/18/19 02/18/19 05:29 05:29 05:29 WBC 3.2 L RBC 3.59 L Hgb 11.4 L Hct 34.3 L MCV 95.5 H MCH 31.8 MCHC 33.2 RDW Std Deviation 47.4 H RDW Coeff of Darryl 13.3 Plt Count 110 L MPV 11.1 Immature Gran % (Auto) 0.600 Neut % (Auto) 62.6 Lymph % (Auto) 22.9 [place] % (Auto) 13.0 H Eos % (Auto) 0.6 Baso % (Auto) 0.3 Absolute Neuts (auto) 2.0 Absolute Lymphs (auto) 0.74 L Nucleated RBC % 0 ESR Sodium 139 Potassium 3.8 Chloride 107 Carbon Dioxide 27.0 Anion Gap 5 BUN 20 H Creatinine 1.15 Estim Creat Clear Calc 57.31 Est GFR (MDRD) Af Amer 80 Est GFR (MDRD) Non-Af 66 BUN/Creatinine Ratio 17.4 Glucose 96 Lactic Acid Calcium 8.5 Phosphorus Magnesium Total Bilirubin Direct Bilirubin AST ALT Alkaline Phosphatase C-React Prot Ext Range Total Protein Albumin Globulin Triglycerides 157 Cholesterol 80 LDL Cholesterol 36 VLDL Cholesterol 31 HDL Cholesterol 13 L Urine Color Urine Clarity Urine pH Ur Specific [place] Urine Protein Urine Glucose (UA) Urine Ketones Urine Occult Blood Urine Nitrite Urine Bilirubin Urine Urobilinogen Ur Leukocyte Esterase Urine RBC Urine WBC Ur Squamous Epith Cells Urine Bacteria Urine Mucus MRSA (PCR) Microbiology 02/17/19 13:30 Urine, Clean Catch Urine Culture - Preliminary Culture exhibits no growth. 02/17/19 13:20 Mucosa - Nasopharyngeal Respiratory Panel (PCR) - Final 02/17/19 16:55 Stool Stool Occult Blood (CANDIDA) - Final 02/17/19 13:30 Urine, Clean Catch Streptococcus pneumoniae Antigen (M - Final 02/17/19 13:30 Urine, Clean Catch Legionella Antigen - Final none Operations: None Procedures: None Summary of Care Provided: Mr. Gold is a 73 year old M with a past medical history of coronary artery disease with CABG x4 in June 2018, skin cancers (squamous) and tobacco dependence in remission who presented to the emergency department at [facility] on 02/17/2019 complaining of high fevers, up to 105.1 ?F, that started on 02/13/2019. He also had Rigors, decreased appetite and increasing weakness. He denied cough, shortness of breath, wheezing, cephalgia, stiff neck, sore throat, runny nose, dysuria, abdominal pain, nausea/vomiting, diarrhea. He was seen by Dr. Florentin Marino on 02/16/2019 and started on Levaquin 750 mg p.o. daily. Last night he continued to have high fevers, shaking chills and weakness and he was told by Dr. Marino to come to the emergency department. Vital signs at presentation to the emergency room were temperature 98, pulse rate 86, blood pressure 123/71, respiratory rate 18 and he was 98% saturated on room air. He had taken Tylenol a few hours prior to coming to the emergency department. CBC showed a normal white blood cell count at 5.4 with 78% neutrophils. Hemoglobin was 12.6 with an MCV of 95.7 and an increased RDW at 47.6. Platelets were low at 138,000. PT was mildly prolonged at 16.5 and the PTT was 85.6 and he is on no anticoagulants. He denied any history of bleeding dyscrasias. He had no problem with excessive blood loss with the CABG. CMP showed a sodium of 133 and a BUN of 31 with a creatinine of 1.57. LFTs were unremarkable. Lactic acid was 2.7. LFTs were unremarkable. Troponin was less than 0.015. CRP was 249 and the ESR was 39. Chest x-ray showed infiltrate in the right midlung. He was admitted to the hospital with a diagnosis of community-acquired pneumonia and acute renal failure more likely than not secondary to dehydration from poor intake and high fevers. Levaquin was continued and Rocephin was added. Urine for Legionella and streptococcal antigens was negative. Respiratory panel was negative. He has no cough and sputum could not be obtained. Blood cultures are pending but have no growth to date. Urine culture exhibited no growth. Stool for Hemoccult blood was negative. Repeat lab on 02/18/2019 showed a low white blood cell count at 3.2 with a hemoglobin of 11.4 and platelets of 110,000. Creatinine was improved and was 1.15 down from 1.57 at admission. The remainder of the BMP was unremarkable. T-max while in the hospital was 100.8 degrees at 8 PM on 02/17/2019. He was afebrile after midnight on the . He was feeling better and ate a good breakfast. He denied SOB, Cough, chest pain. He felt well enough to go home. He is pancytopenic on the day of DC and this is concerning. This may be due to a viral infection or, he may have a hematologic problem. I am also concerned that the PT and the PTT are prolonged. I recommended he follow up with Dr. Marino and discuss these abnormal test results. If they fail to resolve in the next 10-14 days would consider referral to hematology. He was discharged home on 02/18/19 and will follow up with Dr. Marino in the office next week and will have a CBC drawn. He will finish the Levaquin he has at home. Patient recovered more quickly than expected and was discharged within 24H. He was admitted because he had failed OP therapy but, I suspect since he only had 1 dose of Levaquin prior to admission that the antibiotic did not have time to work. PHYSICAL EXAM: GENERAL: alert, oriented X 3, Cooperative, NAD ORAL: moist mucosa, no mucosal lesions NECK: No JVD, supple, trachea midline LUNGS: CTA, symmetric chest expansion HEART: RRR, Normal S1 and S2, no rub, no gallop ABDOMEN: soft, NT, ND, BS present, no guarding with palpation EXTREMITIES: no edema, no cyanosis, no calf tenderness SKIN: No rashes, no breakdown NEUROLOGIC: no focal neurologic deficits PSYCH: appropriate, normal affect, pleasant This note was generated with [employer] dictation software. It may contain incorrect words, spelling, and punctuation that were not noted in checking the note before signing. Patient Problems: Active and Suspected Problems (Last Reviewed 02/17/19 @ 18:00 by Ibis Lucia DO) Community acquired pneumonia (Acute) Thrombocytopenia (Acute) - Physical Exam Vital Signs Temp Pulse Resp BP Pulse Ox 98.4 F 76 20 H 111/66 97 02/18/19 08:45 02/18/19 10:56 02/18/19 08:45 02/18/19 10:56 02/18/19 08:45 Oxygen Delivery Method Room Air Weight: 187 lb Body Mass Index (BMI) 26.8 Intake and Output for Last 24 Hours 02/16/19 02/17/19 02/18/19 23:59 23:59 23:59 Intake Total 4186.80 / 4386.80 2322.5 / 2322.5 Output Total 300 / 800 1200 / 1200 Balance 3886.80 / 3586.80 1122.5 / 1122.5 Microbiology Past 72 Hours 02/17/19 13:30 Urine Culture - Preliminary Urine, Clean Catch Culture exhibits no growth. 02/17/19 13:20 Respiratory Panel (PCR) - Final Mucosa - Nasopharyngeal 02/17/19 16:55 Stool Occult Blood (CANDIDA) - Final Stool 02/17/19 13:30 Streptococcus pneumoniae Antigen (M - Final Urine, Clean Catch 02/17/19 13:30 Legionella Antigen - Final Urine, Clean Catch Laboratory Tests Past 24 Hrs 02/17/19 02/17/19 02/17/19 10:25 10:25 10:25 WBC RBC Hgb Hct MCV MCH MCHC RDW Std Deviation RDW Coeff of Darryl Plt Count MPV Immature Gran % (Auto) Neut % (Auto) Lymph % (Auto) [place] % (Auto) Eos % (Auto) Baso % (Auto) Absolute Neuts (auto) Absolute Lymphs (auto) Nucleated RBC % ESR 39 H Sodium Potassium Chloride Carbon Dioxide Anion Gap BUN Creatinine Estim Creat Clear Calc Est GFR (MDRD) Af Amer Est GFR (MDRD) Non-Af BUN/Creatinine Ratio Glucose Lactic Acid Calcium Phosphorus 3.4 Magnesium 2.2 Total Bilirubin Cancelled Direct Bilirubin 0.23 AST Cancelled ALT Cancelled Alkaline Phosphatase Cancelled C-React Prot Ext Range 249.00 H Total Protein Cancelled Albumin Cancelled Globulin Cancelled Triglycerides Cholesterol LDL Cholesterol VLDL Cholesterol HDL Cholesterol Urine Color Urine Clarity Urine pH Ur Specific [place] Urine Protein Urine Glucose (UA) Urine Ketones Urine Occult Blood Urine Nitrite Urine Bilirubin Urine Urobilinogen Ur Leukocyte Esterase Urine RBC Urine WBC Ur Squamous Epith Cells Urine Bacteria Urine Mucus MRSA (PCR) 02/17/19 02/17/19 02/17/19 13:30 14:00 14:46 WBC RBC Hgb Hct MCV MCH MCHC RDW Std Deviation RDW Coeff of Darryl Plt Count MPV Immature Gran % (Auto) Neut % (Auto) Lymph % (Auto) [place] % (Auto) Eos % (Auto) Baso % (Auto) Absolute Neuts (auto) Absolute Lymphs (auto) Nucleated RBC % ESR Sodium Potassium Chloride Carbon Dioxide Anion Gap BUN Creatinine Estim Creat Clear Calc Est GFR (MDRD) Af Amer Est GFR (MDRD) Non-Af BUN/Creatinine Ratio Glucose Lactic Acid 1.2 Calcium Phosphorus Magnesium Total Bilirubin Direct Bilirubin AST ALT Alkaline Phosphatase C-React Prot Ext Range Total Protein Albumin Globulin Triglycerides Cholesterol LDL Cholesterol VLDL Cholesterol HDL Cholesterol Urine Color Yellow Urine Clarity Sl. Cloudy Urine pH 6.0 Ur Specific [place] 1.020 Urine Protein 30 H Urine Glucose (UA) Normal Urine Ketones Negative Urine Occult Blood 10 H Urine Nitrite Negative Urine Bilirubin Negative Urine Urobilinogen 1 H Ur Leukocyte Esterase Negative Urine RBC 0-5 SEEN Urine WBC 0 SEEN Ur Squamous Epith Cells 0-5 SEEN Urine Bacteria 0 SEEN Urine Mucus 0 SEEN MRSA (PCR) Negative 02/18/19 02/18/19 02/18/19 05:29 05:29 05:29 WBC 3.2 L RBC 3.59 L Hgb 11.4 L Hct 34.3 L MCV 95.5 H MCH 31.8 MCHC 33.2 RDW Std Deviation 47.4 H RDW Coeff of Darryl 13.3 Plt Count 110 L MPV 11.1 Immature Gran % (Auto) 0.600 Neut % (Auto) 62.6 Lymph % (Auto) 22.9 [place] % (Auto) 13.0 H Eos % (Auto) 0.6 Baso % (Auto) 0.3 Absolute Neuts (auto) 2.0 Absolute Lymphs (auto) 0.74 L Nucleated RBC % 0 ESR Sodium 139 Potassium 3.8 Chloride 107 Carbon Dioxide 27.0 Anion Gap 5 BUN 20 H Creatinine 1.15 Estim Creat Clear Calc 57.31 Est GFR (MDRD) Af Amer 80 Est GFR (MDRD) Non-Af 66 BUN/Creatinine Ratio 17.4 Glucose 96 Lactic Acid Calcium 8.5 Phosphorus Magnesium Total Bilirubin Direct Bilirubin AST ALT Alkaline Phosphatase C-React Prot Ext Range Total Protein Albumin Globulin Triglycerides 157 Cholesterol 80 LDL Cholesterol 36 VLDL Cholesterol 31 HDL Cholesterol 13 L Urine Color Urine Clarity Urine pH Ur Specific [place] Urine Protein Urine Glucose (UA) Urine Ketones Urine Occult Blood Urine Nitrite Urine Bilirubin Urine Urobilinogen Ur Leukocyte Esterase Urine RBC Urine WBC Ur Squamous Epith Cells Urine Bacteria Urine Mucus MRSA (PCR) Discharge Activity: - - Gradually return to normal activity Call your doctor if you observe: Shortness of breath, Dizziness, Fainting spells, Chest pain, Calf discomfort, - - Call your PCP if severe diarrhea ( > 5 stools a day), painful sores in the mouth, painful swallowing, rash or itching. Taking a probiotic such as Lactobacillus or Kefir can help with loose stools while taking antibiotics. Home Medications: Medications to take at Discharge aspirin 81 mg tablet,delayed release 81 mg PO DAILY 06/22/18 Acetaminophen [Tylenol Extra Strength] 500 mg PO Q4H PRN PRN 02/17/19 Atorvastatin Calcium 40 mg PO QHS 02/17/19 Metoprolol Tartrate [Lopressor (beta travis)] 50 mg PO BID 02/17/19 levoFLOXacin tablet [Levaquin tablet] 750 mg PO DAILY #1 tab 02/18/19 Following Prescrptions Were Given to Patient: levoFLOXacin tablet [Levaquin tablet] 750 mg PO DAILY #1 tab Primary Care Physician: Florentin Marino DO [Primary Care Provider] - Please follow up with your Primary Care Physician in: next week Disposition: Home Minutes spent on discharge:: 30 Patient Condition:: Stable Medical Necessity - Tobacco Use Smoking Status: Former smoker - Quit smoking at 33 years of age. Tobacco Use: Non-smoker Meaningful Use Info Meaningful Use Diagnoses (Choose all that apply): None applicable Code Visit OBSV E&M: 08992 Observation care discharge
--- NOTE | 2019-02-18 12:43 | CASEMGMT ---
LW/POA forms not on file. SW spoke w/pt and , let them know we do not have the documents and requested they bring in the forms. states she brought them in last time pt was here, but she can bring them in again. SW did check a second time in the echart, the forms are not on file. SW apologized and thanked for being willing to bring the forms in a second time. BRAVO Islas
--- NOTE | 2019-02-18 13:07 | CASEMGMT ---
RN CM NOTE: Discussed BANEGAS form with pt and questions answered by this RN CM and Vi VEE CM. Form signed by pt, copy made and placed on chart, and original given to pt. Pt and made aware to ask for CM if they have any further questions. They voice understanding. Barry DOTYN RN CM
[2019-02-18 13:36] VITALS: BP 120/72; PULSE 68; RESP 16; TEMP 36.7; O2SAT 97
[2019-02-18 13:40] VITALS: BP 120/72; PULSE 68; RESP 18; TEMP 36.7; O2SAT 97
[2019-02-22 16:23] LABS: Lyme Scn Total Ab w/Rflx <0.91 ISR (0.00-0.90); West Nile Virus, IgG Negative (Negative); West Nile Virus, IgM Negative (Negative)
== END 2019-02-18 13:55 | disposition home or self-care (01) ==
LOC: ED 10:26 → MS3 02-18 06:50
PROVIDERS: Admitting Provider Internal Medicine; Emergency Provider Emergency Medicine; Family Provider Family Medicine; PCP Family Medicine; Referring Provider Internal Medicine; Visit Provider Internal Medicine
DX: J18.9 Pneumonia, unspecified organism (principal); D69.6 Thrombocytopenia, unspecified; I25.10 Atherosclerotic heart disease of native coronary artery without angina pectoris; D53.9 Nutritional anemia, unspecified; I10 Essential (primary) hypertension; N17.9 Acute kidney failure, unspecified; E87.1 Hypo-osmolality and hyponatremia; E86.0 Dehydration; E78.5 Hyperlipidemia, unspecified; M19.90 Unspecified osteoarthritis, unspecified site; Z79.899 Other long term (current) drug therapy; Z79.82 Long term (current) use of aspirin; Z95.1 Presence of aortocoronary bypass graft; Z87.891 Personal history of nicotine dependence
CPT/HCPCS: 36415; 71045; 71046; 80048; 80053; 80061; 81001; 82248; 82274; 82550; 83605; 83735; 84100; 84484; 85025; 85610; 85652; 85730; 86140; 86618; 86788; 86789; 87040; 87086; 87449; 87633; 87641; 93005; 96361; 96365; 96366; 96367; 99218; 99285; J7030; A4216; G0378

== ENCOUNTER → 2019-03-09 08:29 | Outpatient (CLI) | payer MEDICARE, SELFPAY ==
[2019-02-17 12:21] VITALS: BMI 26.8
[2019-03-09 10:12] LABS: Absolute Lymphocyte Count 1.19 X10^3/uL (0.83-4.51); Absolute Neutrophil Count 2.4 X10^3/uL (2.0-7.7); Basophil# 0.02 X10^3/uL; Basophil% 0.5 % (0-1); Eosinophil# 0.15 X10^3/uL; Eosinophils% 3.7 % (0-5); Hematocrit 37.4 % (40-54); Hemoglobin 12.3 g/dL (13.0-16.5); Lymphocyte # 1.19 X10^3/ul (4.0); Lymphocyte % 29.2 % (19-41); Mean Corp Hgb Conc 32.9 g/dL (32-36); Mean Corpuscular Hgb 31.7 pg (27.0-32.0); Mean Corpuscular Volume 96.4 fL (80-94); Mean Platelet Vol. 12.8 fl (6.2-12.0); Monocyte% 7.4 % (0-10); NRBC Flagged by Analyzer 0 % (0-5); Platelet Count 117 K/mm3 (150-450); RBC Distribution Width CV 13.5 % (11.6-14.6); RBC Distribution Width SD 47.9 fl (35.1-43.9); Red Blood Count 3.88 M/mm3 (4.6-6.2); White Blood Count 4.1 K/mm3 (4.4-11.0)
[2019-03-09 10:23] LABS: International Normalized Ratio 1.1; Prothrombin Time (Protime)PT. 14.2 SECONDS (11.7-14.9)
[2019-03-09 10:24] LABS: Partial Thromboplast Time 70.3 Seconds (24.1-36.2)
== END ==
PROVIDERS: Family Provider Family Medicine; PCP Family Medicine; Referring Provider Family Medicine; Visit Provider Family Medicine
DX: R79.1 Abnormal coagulation profile (principal)
CPT/HCPCS: 36415; 85025; 85610; 85730

== ENCOUNTER → 2019-03-23 07:24 | Outpatient (CLI) | payer MEDICARE, SELFPAY ==
[2019-02-17 12:21] VITALS: BMI 26.8
[2019-03-23 09:56] LABS: Absolute Lymphocyte Count 1.23 X10^3/uL (0.83-4.51); Absolute Neutrophil Count 2.8 X10^3/uL (2.0-7.7); Basophil# 0.02 X10^3/uL; Basophil% 0.4 % (0-1); Eosinophil# 0.13 X10^3/uL; Eosinophils% 2.8 % (0-5); Hematocrit 41.1 % (40-54); Hemoglobin 13.5 g/dL (13.0-16.5); Lymphocyte # 1.23 X10^3/ul (4.0); Lymphocyte % 26.5 % (19-41); Mean Corp Hgb Conc 32.8 g/dL (32-36); Mean Corpuscular Hgb 31.5 pg (27.0-32.0); Mean Platelet Vol. 11.6 fl (6.2-12.0); Monocyte# 0.43 X10^3/uL; Monocyte% 9.2 % (0-10); NRBC Flagged by Analyzer 0 % (0-5); Neutrophil # 2.83 X10^3/uL (2.7-7.7); Neutrophil % 60.9 % (47-70); Platelet Count 147 K/mm3 (150-450); RBC Distribution Width CV 13.2 % (11.6-14.6); RBC Distribution Width SD 46.6 fl (35.1-43.9); Red Blood Count 4.28 M/mm3 (4.6-6.2); White Blood Count 4.7 K/mm3 (4.4-11.0)
[2019-03-23 10:09] LABS: Partial Thromboplast Time 76.6 Seconds (24.1-36.2)
[2019-03-23 10:36] LABS: PSA,Total - Annual Screen 1.01 ng/mL (0.00-4.00)
== END ==
LOC: LAB.FUTURE 07:25 → MTLAB 07:33
PROVIDERS: Family Provider Family Medicine; PCP Family Medicine; Referring Provider Family Medicine; Visit Provider Family Medicine
DX: R79.1 Abnormal coagulation profile (principal); D69.6 Thrombocytopenia, unspecified; Z12.5 Encounter for screening for malignant neoplasm of prostate
CPT/HCPCS: 36415; 84153; 85025; 85730; G0103

== ENCOUNTER → 2019-04-20 06:45 | Outpatient (CLI) | payer MEDICARE, SELFPAY ==
[2019-04-12 10:22] VITALS: BMI 27.4
--- NOTE | 2019-04-20 06:48 | CT_ITS ---
STUDY: CT CHEST WITH CONTRAST REASON FOR EXAM: Male, 73 years old. RADIATION DOSAGE (If Supplied By Facility): CTDIvol = ( 12.93 ) mGy, DLP = ( 527.87 ) mGycm TECHNIQUE: Transaxial imaging was performed following intravenous administration of IV Isovue 300 100. Individualized dose optimization techniques were used for this CT. COMPARISON: None. FINDINGS: The lungs are normal. There is no demonstrated pleural abnormality. Calcifications of the tracheal cartilages noted. Normal heart and pericardium. Normal mediastinum. Normal hilar regions. Normal enhanced pulmonary arteries. Normal aorta arch and descending thoracic aorta with some atherosclerotic changes Normal osseous structures except for moderate hypertrophic changes involving the dorsal spine. There is no demonstrated abnormality of the visualized upper abdomen. CT/Chest WITH Contrast IMPRESSION: Normal enhanced CT Chest examination. Electronically Signed: Carola Seth, at 9:23 EST Tel , Service support ,
== END ==
PROVIDERS: Family Provider Family Medicine; PCP Family Medicine; Referring Provider Internal Medicine Medical Oncology; Visit Provider Internal Medicine Medical Oncology
DX: D68.62 Lupus anticoagulant syndrome (principal); R91.8 Other nonspecific abnormal finding of lung field
CPT/HCPCS: 71260; Q9967

== ENCOUNTER → 2019-04-28 07:03 | Outpatient (CLI) | payer MEDICARE, SELFPAY ==
[2019-04-12 10:22] VITALS: BMI 27.4
[2019-04-29 15:55] LABS: CHOLESTEROL TOTAL 255 mg/dL (100-199); HDL-C 43 mg/dL (>39); HDL-P TOTAL 28.3 umol/L (>=30.5); SMALL LDL-P 1593 nmol/L (<=527); TRIGLYCERIDES 134 mg/dL (0-149)
[2019-04-29 16:13] LABS: INSULIN RESISTANCE SCORE 66 (<=45); LDL SIZE 20.1 nm (>20.5); LDL-C 185 mg/dL (0-99); LDL-P 2414 nmol/L (<1000)
== END ==
LOC: LAB.FUTURE 07:05 → MTLAB 07:13
PROVIDERS: Family Provider Family Medicine; PCP Family Medicine; Referring Provider Family Medicine; Visit Provider Family Medicine
DX: I25.10 Atherosclerotic heart disease of native coronary artery without angina pectoris (principal)
CPT/HCPCS: 36415; 80061; 83704

== ENCOUNTER → 2019-06-28 07:12 | Outpatient (CLI) | payer MEDICARE, SELFPAY ==
[2019-04-12 10:22] VITALS: BMI 27.4
[2019-06-30 12:07] LABS: CHOLESTEROL TOTAL 171 mg/dL (100-199); HDL-C 41 mg/dL (>39); HDL-P TOTAL 28.3 umol/L (>=30.5); SMALL LDL-P 872 nmol/L (<=527); TRIGLYCERIDES 115 mg/dL (0-149)
[2019-06-30 14:35] LABS: INSULIN RESISTANCE SCORE 63 (<=45); LDL SIZE 20.5 nm (>20.5); LDL-C 107 mg/dL (0-99); LDL-P 1427 nmol/L (<1000)
== END ==
PROVIDERS: PCP Family Medicine; Referring Provider Family Medicine; Visit Provider Family Medicine
DX: E78.5 Hyperlipidemia, unspecified (principal)
CPT/HCPCS: 36415; 80061; 83704

== ENCOUNTER → 2019-07-05 07:57 | Outpatient (CLI) | payer MEDICARE, SELFPAY ==
[2019-04-12 10:22] VITALS: BMI 27.4
[2019-07-05 10:15] LABS: Absolute Lymphocyte Count 1.17 X10^3/uL (0.83-4.51); Absolute Neutrophil Count 2.9 X10^3/uL (2.0-7.7); Basophil# 0.01 X10^3/uL; Basophil% 0.2 % (0-1); Eosinophil# 0.18 X10^3/uL; Eosinophils% 3.9 % (0-5); Hematocrit 41.5 % (40-54); Lymphocyte # 1.17 X10^3/ul (4.0); Lymphocyte % 25.4 % (19-41); Mean Corp Hgb Conc 33.7 g/dL (32-36); Mean Corpuscular Hgb 31.5 pg (27.0-32.0); Mean Corpuscular Volume 93.5 fL (80-94); Monocyte# 0.37 X10^3/uL; NRBC Flagged by Analyzer 0 % (0-5); Neutrophil # 2.85 X10^3/uL (2.7-7.7); Neutrophil % 62.1 % (47-70); Platelet Count 118 K/mm3 (150-450); RBC Distribution Width CV 12.5 % (11.6-14.6); Red Blood Count 4.44 M/mm3 (4.6-6.2); White Blood Count 4.6 K/mm3 (4.4-11.0)
[2019-07-05 10:32] LABS: AST(SGOT) 13 U/L (15-37); Alanine Aminotransfer ALT/SGPT 21 U/L (16-61); Albumin, Serum 3.4 g/dL (3.2-5.0); Alkaline Phosphatase 49 U/L (45-117); Anion Gap 4 (5-15); BUN 28 mg/dL (7-18); BUN/Creat Ratio 22.8 RATIO (10-20); Calcium,Total 8.7 mg/dL (8.5-10.1); Chloride 109 mmol/L (98-107); Creatinine, Serum 1.23 mg/dL (0.70-1.30); EST Glomerular Filtration Rate 61 mL/min (>60); Est Glom Filt Rate - Afr Amer 74 mL/min (>60); Globulin 3.5 g/dL (2.2-4.2); Glucose 116 mg/dL (74-106); LDH 152 U/L (87-241); Potassium 4.3 mmol/L (3.5-5.1); Protein, Total 6.9 g/dL (6.4-8.2); Sodium Level 140 mmol/L (136-145)
[2019-07-05 10:39] LABS: International Normalized Ratio 1.1
[2019-07-05 10:40] LABS: Partial Thromboplast Time 73.2 Seconds (24.1-36.2)
[2019-07-05 14:17] LABS: Fibrinogen 421 mg/dl (203-444)
[2019-07-08 08:08] LABS: Dilute Prothrombin Time (dPT) 77.5 sec (0.0-55.0); Dilute Russell Viper Venom 91.1 sec (0.0-47.0); Hexagonal Phase Phospholipid 2 52 sec (0-11); PTT-LA 104.7 sec (0.0-51.9); PTT-LA Mix 96.5 sec (0.0-48.9); dPT Confirm Ratio 1.14 Ratio (0.00-1.40)
[2019-07-08 11:22] LABS: Anti-Cardiolipin Ab, IgG, Qn < 9 GPL U/mL (0-14); Haptoglobin 104 mg/dL (34-355)
[2019-07-08 11:23] LABS: Anti-Cardiolipin Ab, IgM, Qn 18 MPL U/mL (0-12); Interpretation Comment: (.)
== END ==
PROVIDERS: PCP Family Medicine; Referring Provider Internal Medicine Medical Oncology; Visit Provider Internal Medicine Medical Oncology
DX: R91.8 Other nonspecific abnormal finding of lung field (principal); D68.62 Lupus anticoagulant syndrome
CPT/HCPCS: 80053; 83010; 83615; 85025; 85384; 85610; 85730; 86147

== ENCOUNTER → 2019-10-04 08:11 | Outpatient (CLI) | payer MEDICARE, SELFPAY ==
[2019-07-12 11:10] VITALS: BMI 27.0
[2019-10-04 10:04] LABS: Erythrocyte Sedimentation Rate 18 mm/hr (0-20)
[2019-10-04 10:08] LABS: Absolute Lymphocyte Count 1.37 X10^3/uL (0.83-4.51); Absolute Neutrophil Count 2.7 X10^3/uL (2.0-7.7); Basophil# 0.02 X10^3/uL; Basophil% 0.4 % (0-1); Eosinophil# 0.14 X10^3/uL; Hematocrit 43.2 % (40-54); Hemoglobin 14.5 g/dL (13.0-16.5); Lymphocyte # 1.37 X10^3/ul (4.0); Lymphocyte % 29.7 % (19-41); Mean Corp Hgb Conc 33.6 g/dL (32-36); Mean Corpuscular Hgb 31.7 pg (27.0-32.0); Mean Corpuscular Volume 94.3 fL (80-94); Mean Platelet Vol. 11.6 fl (6.2-12.0); Monocyte# 0.35 X10^3/uL; Monocyte% 7.6 % (0-10); NRBC Flagged by Analyzer 0 % (0-5); Neutrophil # 2.72 X10^3/uL (2.7-7.7); Neutrophil % 58.9 % (47-70); Platelet Count 146 K/mm3 (150-450); RBC Distribution Width CV 12.7 % (11.6-14.6); RBC Distribution Width SD 43.6 fl (35.1-43.9); Red Blood Count 4.58 M/mm3 (4.6-6.2); White Blood Count 4.6 K/mm3 (4.4-11.0)
[2019-10-04 10:10] LABS: International Normalized Ratio 1.1; Prothrombin Time (Protime)PT. 13.4 SECONDS (11.7-14.9)
[2019-10-04 10:18] LABS: AST(SGOT) 18 U/L (15-37); Alanine Aminotransfer ALT/SGPT 21 U/L (16-61); Albumin, Serum 3.4 g/dL (3.2-5.0); Alkaline Phosphatase 51 U/L (45-117); Anion Gap 6 (5-15); BUN 22 mg/dL (7-18); BUN/Creat Ratio 17.3 RATIO (10-20); Calcium,Total 8.9 mg/dL (8.5-10.1); Chloride 108 mmol/L (98-107); Creatinine, Serum 1.27 mg/dL (0.70-1.30); EST Glomerular Filtration Rate 59 mL/min (>60); Est Glom Filt Rate - Afr Amer 71 mL/min (>60); Globulin 3.5 g/dL (2.2-4.2); Glucose 98 mg/dL (74-106); LDH 154 U/L (87-241); Potassium 4.4 mmol/L (3.5-5.1); Protein, Total 6.9 g/dL (6.4-8.2); Sodium Level 141 mmol/L (136-145)
[2019-10-07 09:07] LABS: Albumin 3.7 g/dL (2.9-4.4); Alpha-1-Globulins 0.2 g/dL (0.0-0.4); Alpha-2-Globulins 0.6 g/dL (0.4-1.0); Dilute Prothrombin Time (dPT) 76.6 sec (0.0-55.0); Dilute Russell Viper Venom 101.2 sec (0.0-47.0); Free Kappa Light Chains 24.3 mg/L (3.3-19.4); Free Lambda Light Chains 13.4 mg/L (5.7-26.3); Gamma Globulin 1.2 g/dL (0.4-1.8); Hexagonal Phase Phospholipid 2 61 sec (0-11); Immunoglobulin A 183 mg/dL (61-437); Immunoglobulin G 1061 mg/dL (603-1613); Immunoglobulin M 120 mg/dL (15-143); PROEL- TOTAL PROTEIN 6.7 g/dL (6.0-8.5); PTT-LA 119.3 sec (0.0-51.9); PTT-LA Mix 109.4 sec (0.0-48.9); Thrombin Time 17.2 sec (0.0-23.0); dPT Confirm Ratio 1.23 Ratio (0.00-1.40)
[2019-10-07 17:59] LABS: IMMUNOFIXATION RESULT,S Comment: (.); Interpretation Comment: (.)
== END ==
PROVIDERS: PCP Family Medicine; Referring Provider Internal Medicine Medical Oncology; Visit Provider Internal Medicine Medical Oncology
DX: R76.0 Raised antibody titer (principal); R79.1 Abnormal coagulation profile
CPT/HCPCS: 36415; 80053; 82784; 83615; 83883; 84165; 85025; 85610; 85652; 85730; 86334

== ENCOUNTER → 2020-10-03 10:45 | Outpatient (CLI) | payer MEDICARE, SELFPAY ==
[2019-10-12 12:59] VITALS: BMI 26.8
--- NOTE | 2020-10-03 10:47 | ART_ITS ---
Reason For Study: PVD Procedure A bilateral lower extremity continuous wave Doppler with analog waveform analysis and ankle brachial indexes. Left Segmental Pressures Left brachial= 134mmHg. Left posterior tibial artery = 185mmHg. Left dorsalis pedis artery = 152mmHg. Left digit = 103 mmHg. The left dorsalis pedis waveforms are triphasic. The left posterior tibial artery waveforms are triphasic. Right Segmental Pressures Right brachial= 150mmHg. Right posterior tibial artery = 212mmHg. Right dorsalis pedis artery = 158mmHg. Right digit = 85 mmHg. The right dorsalis pedis waveforms are biphasic. The right posterior tibial artery waveforms are triphasic. Indices The right ankle brachial index by the dorsalis pedis is 1.05. The right ankle brachial index by the posterior tibial artery is 1.41. The right digital-brachial index is .57. The left ankle brachial index by the dorsalis pedis is 1.01. The left ankle brachial index by the posterior tibial artery is 1.23. The left digital-brachial index is .69. VL/Ankle Brachial Index Interpretation Summary Normal bilateral lower extremity resting ankle-brachial indices. Right posterio r tibialis triphasic Doppler waveform with only a biphasic waveform involving the dorsalis pedis sug gesting moderate disease of the tibialis anterior. Triphasic waveforms left posterior tibial and dorsalis pedis Abnormal digital brachial indices bilaterally. Consider clinical correlation. Ordering Physician: Florentin Marino Referring Physician: Florentin Marino Performed By: DUKE RIZVI RDCS
== END ==
PROVIDERS: PCP Family Medicine; Referring Provider Family Medicine; Visit Provider Family Medicine
DX: I73.9 Peripheral vascular disease, unspecified (principal); M79.659 Pain in unspecified thigh; R76.0 Raised antibody titer; I25.10 Atherosclerotic heart disease of native coronary artery without angina pectoris; Z12.5 Encounter for screening for malignant neoplasm of prostate
CPT/HCPCS: 36415; 80053; 80061; 83615; 84153; 85025; 85610; 85730; 93922; G0103

== ENCOUNTER 2020-11-27 06:23 | Day surgery (SDC) | payer MEDICARE, SELFPAY ==
[2020-11-01 08:59] VITALS: BMI 30.9
[2020-11-27 06:51] VITALS: BP 150/75; PULSE 70; RESP 16; TEMP 36.6; O2SAT 97; BMI 29.7
--- NOTE | 2020-11-27 06:55 | HP.PCM_ITS ---
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 Juanjose Ochoa MD) Atherosclerosis of coronary artery of [place] heart without angina pectoris Carotid artery disease Cervical spondylosis Colon polyps DDD (degenerative disc disease), lumbar Erectile dysfunction Essential (primary) hypertension Hyperlipidemia Osteoarthritis Scoliosis TIA (transient ischemic attack) (07/2005) Vitamin D deficiency Wound cellulitis after surgery Surgical History (Updated 11/01/20 @ 08:59 by Elsy Thomas) H/O coronary artery bypass surgery (07/01/18) History of appendectomy History of left heart catheterization (06/25/18) Hx of colonoscopy Hx of colonoscopy with polypectomy (~03/2018) Family History Father Colon cancer Mother Diabetes Heart disease Hypertension CAD (coronary artery disease) CVA (cerebral vascular accident) Brother CVA (cerebral vascular accident) Myocardial infarction age 85 CAD (coronary artery disease) Social History Smoking Status: Former smoker alcohol intake: never HPI HPI HPI: KRYSTIAN CHILD, is a 74 M who presents to the office today for surgical consultation regarding surveillance colonoscopy. Patient's primary care physician Dr. Florentin Marino. 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 Oscar Winkler. The patient states he has an elevated PTT. It is of note that on October 03, 2020 his PT was 13 and INR was 1 and PTT was 74.2 the patient however states that he has not had trouble with previous colonoscopies. He is not had any unusual bleeding episodes. He has had several previous colonoscopies because of a strong family history of colon cancer. His father had colon cancer. The patient himself has had previous history of polyps. By his report initially he was on an every 5-year schedule but that had been decreased to every 3 years. Most recent colonoscopy performed by Dr. Bobby Felipe was December 07, 2017 and a rectal polyp was removed at that time fortunately benign hyperplastic. It was recommended to the patient however that he pursue follow-up exam at 3 years. The patient denies bright red blood per rectum or bleeding. He has had coronary bypass surgery x4 2 years ago. Apparently had a pneumothorax associated with that. Otherwise however he is remained stable. He exercises routinely. ROS General General: No weight change, appetite, fatigue, colon cancer, breast cancer or weakness HEENT HEENT: No difficulty swallowing, eye injury, eye surgery, swollen glands or hoarseness Endo Endocrine: No thyroid disease, diabetes mellitus, thyroid cancer, Hair loss, heat intolerance or cold intolerance Musc Musculoskeletal: Yes back problems and rheumatoid arthritis; No arthritis, gout or joint pain Cardio Cardiovascular: Yes heart disease; No murmur, pacemaker, atrial fibrillation, high blood pressure, heart attack, heart stent, palpitations, shortness of breat with exertion or chest pain Psych Psychiatric: No depression, anxiety or hearing voices Resp Respiratory: No shortness of breath, No sleep apnea, No cough, No COPD, No asthma, No emphysema and No wheezing Gastro Gastrointestinal: No abdominal pain, No nausea or vomiting, No diarrhea, No constipation, No blood in stool, No acid reflux, No hemorrhoids, No ulcers, No gallbladder problem and No black,tarry stools Willam Hematologic: Yes blood thinners, Yes blood disorders, No bleeding, No anemia and No blood clots Neuro Neurologic: No weakness Exam Const General: cooperative, comfortable and no acute distress Nutritional Appearance: overweight Orientation: alert and awake HENMT Head: normal to inspection Eyes General: appearance normal, both eyes and all related structures Resp Effort & Inspection: normal respiratory effort Auscultation: clear to auscultation bilaterally Cardio Rate: regular rate Rhythm: regular rhythm GI Palpation: soft and no hepatosplenomegaly Auscultation: normal bowel sounds Skin General: no rashes or lesions noted Neuro Cognition: normal cognition Extrem General: no calf tenderness bilaterally Psych Affect: normal affect COVID (Procedure Consent) Procedure Criteria Procedure Criteria: Yes Elective The surgeon/proceduralist and patient have discussed in detail the risk of exposure to and/or potential harm posed by the COVID-19 virus with having a surgery/procedure at this time versus the risk of delaying the surgery/procedure. It is not possible to know either the risk of delaying the surgery or procedure or chance of getting an infection with perfect accuracy, but a joint decision was made between the patient and the surgeon/proceduralist to proceed at this time with the scheduled surgery/procedure as indicated on the consent form. Assessment and Plan Assessment and Plan (1) Lupus anticoagulant positive: Status: Chronic Comment: Clinically stable, no clotting episodes. (2) Family history of colon cancer in father: Status: Inactive Plan Details Additional Comments: 74-year-old gentleman almost 75-year-old gentleman with a personal history of colon polyps and a family history of colon cancer in his father. Recommendations per Dr. Bobby Felipe follow-up colonoscopy at 3 years. Previous examination was December 07. I propose for him a colonoscopy with possible biopsy or polypectomy as indicated. He is aware of the technique, benefit, risk, alternatives. Has had an opportunity ask no questions answered. Because of his abnormal PTT and his history of coronary bypass surgery we will utilize monitored anesthesia care. Copy: Dr. Florentin Ochoa M.D., F.A.C.S. I have re-examined the patient. There are no clinical changes since date of exam.
[2020-11-27] MEDS: Lactated Ringers 1,000 ML 100 ML IV (06:57)
[2020-11-27 07:55] VITALS: BP 107/59; BP 150/75; PULSE 68; RESP 16; O2SAT 95
--- NOTE | 2020-11-27 07:56 | OP.COLON_ITS ---
Patient Name: Kamran Gold Procedure Date: 11/27/2020 7:32 AM Date of : 1945 Age: 75 Procedure: Colonoscopy Indications: High risk colon cancer surveillance: Personal history of colonic polyps, Family history of anal canal cancer in a first-degree relative Providers: Juanjose Ochoa MD Referring MD: Florentin Marino Medicines: See the Anesthesia note for documentation of the administered medications Patient Profile: Last Colonoscopy: November 2017. Complications: No immediate complications. Procedure: Pre-Anesthesia Assessment: - Prior to the procedure, a History and Physical was performed, and patient medications and allergies were reviewed. The patient's tolerance of previous anesthesia was also reviewed. The risks and benefits of the procedure and the sedation options and risks were discussed with the patient. All questions were answered, and informed consent was obtained. Prior Anticoagulants: The patient has taken no previous anticoagulant or antiplatelet agents. ASA Grade Assessment: II - A patient with mild systemic disease. After reviewing the risks and benefits, the patient was deemed in satisfactory condition to undergo the procedure. - Prior to the procedure, a History and Physical was performed, and patient medications and allergies were reviewed. The patient's tolerance of previous anesthesia was also reviewed. The risks and benefits of the procedure and the sedation options and risks were discussed with the patient. All questions were answered, and informed consent was obtained. Prior Anticoagulants: The patient has taken Plavix (clopidogrel), last dose was 1 day prior to procedure. After reviewing the risks and benefits, the patient was deemed in satisfactory condition to undergo the procedure. After I obtained informed consent, the scope was passed under direct vision. Throughout the procedure, the patient's blood pressure, pulse, and oxygen saturations were monitored continuously. The Colonoscope was introduced through the anus and advanced to the cecum, identified by appendiceal orifice and ileocecal valve. The colonoscopy was performed without difficulty. The patient tolerated the procedure well. The quality of the bowel preparation was good. The ileocecal valve and the appendiceal orifice were photographed. Scope In: 7:38:03 AM Scope Withdrawal Time 0 hours 8 minutes 41 seconds Scope Out: 7:50:48 AM Total Procedure Duration Time 0 hours 12 minutes 45 seconds Findings: Hemorrhoids were found on perianal exam. The digital rectal exam was normal. Pertinent negatives include normal prostate (size, shape, and consistency). Scattered diverticula were found in the sigmoid colon. The exam was otherwise without abnormality. Impression: - Hemorrhoids found on perianal exam. - Diverticulosis in the sigmoid colon. - The examination was otherwise normal. - No specimens collected. Recommendation: - Discharge patient to home. - Resume previous diet. - Continue present medications. - Repeat colonoscopy in 5 years for surveillance. Procedure Code(s): --- Professional --- 47925, Colonoscopy, flexible; diagnostic, including collection of specimen(s) by brushing or washing, when performed (separate procedure) Diagnosis Code(s): --- Professional --- Z86.010, Personal history of colonic polyps K64.9, Unspecified hemorrhoids Z80.0, Family history of malignant neoplasm of digestive organs K57.30, Diverticulosis of large intestine without perforation or abscess without bleeding CPT copyright 2017 [employer]. All rights reserved. The codes documented in this report are preliminary and upon medical biller/coder review may be revised to meet current compliance requirements. Juanjose Ochoa MD 11/27/2020 7:55:53 AM This report has been signed electronically. Number of Addenda: 0 Note Initiated On: 11/27/2020 7:32 AM
--- NOTE | 2020-11-27 07:56 | OP.CCLET_ITS ---
11/27/2020 Florentin Marino [address] [place] [address] Re : Colonoscopy procedure for Kamran Gold Dear Dr. Marino This procedure was performed on Friday, November 27, 2020. My impressions and recommendations are as follows: Impressions : - Hemorrhoids found on perianal exam. - Diverticulosis in the sigmoid colon. - The examination was otherwise normal. - No specimens collected. Recommendations : - Discharge patient to home. - Resume previous diet. - Continue present medications. - Repeat colonoscopy in 5 years for surveillance. My findings are described in the full procedure note, which is enclosed. If I can be of further assistance, please feel free to contact me at Doctor phone number(s): Work: . Sincerely, Juanjose Ochoa MD 11/27/2020 7:55:53 AM This report has been signed electronically.
[2020-11-27 08:00] VITALS: BP 130/86; BP 150/75; PULSE 63; RESP 16; O2SAT 96
[2020-11-27 08:05] VITALS: BP 135/72; BP 150/75; PULSE 72; RESP 16
[2020-11-27 08:10] VITALS: BP 143/73; BP 150/75; PULSE 64; RESP 16; TEMP 36; O2SAT 94
[2020-11-27 08:28] VITALS: BP 150/75
== END 2020-11-27 08:30 ==
LOC: EN 06:25 → AC 06:26
PROVIDERS: PCP Family Medicine; Referring Provider Family Medicine; Visit Provider Surgery
PROC: 0DJD8ZZ Inspection of Lower Intestinal Tract, Via Natural or Artificial Opening Endoscopic (ICD-10-PCS; CPT 45378; principal; 2020-11-27 07:25)
DX: Z12.11 Encounter for screening for malignant neoplasm of colon (principal); K57.30 Diverticulosis of large intestine without perforation or abscess without bleeding; K64.9 Unspecified hemorrhoids; Z20.822 Contact with and (suspected) exposure to COVID-19; D68.62 Lupus anticoagulant syndrome; I25.10 Atherosclerotic heart disease of native coronary artery without angina pectoris; I10 Essential (primary) hypertension; E78.5 Hyperlipidemia, unspecified; M19.90 Unspecified osteoarthritis, unspecified site; Z79.82 Long term (current) use of aspirin; Z79.899 Other long term (current) drug therapy; Z86.010 Personal history of colon polyps; Z86.73 Personal history of transient ischemic attack (TIA), and cerebral infarction without residual deficits; Z95.1 Presence of aortocoronary bypass graft; Z87.19 Personal history of other diseases of the digestive system; Z87.891 Personal history of nicotine dependence; Z80.0 Family history of malignant neoplasm of digestive organs
CPT/HCPCS: G0105; 87426; C9803; J7120; J2405

== ENCOUNTER → 2021-11-05 | Outpatient (CLI) | payer MEDICARE, SELFPAY ==
--- NOTE | 2021-11-05 14:37 | RAD_ITS ---
STUDY: X-RAY - LEFT SHOULDER REASON FOR EXAM: Male, 76 years old. Anterior shoulder pain and swelling after fall. TECHNIQUE: 4 view(s) of the shoulder. COMPARISON: None. FINDINGS: There is mild degenerative arthrosis of the glenohumeral articulation. There is degenerative arthrosis of the acromioclavicular joint without inferior osseous spur formation. Normal acromion. There is no acute fracture, dislocation or destructive osseous pathology. Normal humeral head and visualized proximal humerus. The soft tissue structures are unremarkable. Is evidence of median sternotomy. Normal visualized pulmonary apex. RAD/Shoulder min 2 Views IMPRESSION: Degenerative changes of the left shoulder. Electronically Signed: Rodrigue Stoddard DO at 16:47 EDT ,
== END | disposition home or self-care (01) ==
LOC: MTRAD 14:36
PROVIDERS: PCP Family Medicine; Referring Provider Family Medicine; Visit Provider Family Medicine
DX: M25.512 Pain in left shoulder (principal)
CPT/HCPCS: 73030

== ENCOUNTER → 2022-01-18 | Outpatient (CLI) | payer MEDICARE, SELFPAY ==
--- NOTE | 2022-01-17 13:00 | RAD_ITS ---
HISTORY: Male, 76 years old. PRE MRI CLEARANCE TECHNIQUE: 2 view(s) of the orbits were obtained. COMPARISON: None. FINDINGS: No metallic foreign body identified in the orbits. Symmetric appearance of the osseous structures. No large air-fluid levels in the paranasal sinuses Metallic hardware in the oral cavity. RAD/Orbits for Foreign Body IMPRESSION: No demonstrated metallic orbital foreign body. Electronically Signed: Carolin Wilkerson MD at 13:13 EDT ,
--- NOTE | 2022-01-18 07:31 | MRI_ITS ---
STUDY: MRI LUMBAR SPINE WITHOUT CONTRAST REASON FOR EXAM: Male, 76 years old. Leg weakness. Rule out spinal stenosis. TECHNIQUE: Standardized fat and water weighted pulse sequences were obtained in the sagittal and axial planes. COMPARISON: Lumbar spine radiographs 06/04/2018. FINDINGS: T11-T12: (Sagittal only). Normal T11 inferior endplate. Mild anterior wedging of T12 superior endplate is presumably from remote injury. This accounts for the increased anterior disc space height. Normal disc hydration and morphology. Normal central canal and bilateral intervertebral neural foramina. Prominent bridging anterior marginal spurs. T12-L1: (Sagittal only). Normal endplates. Moderate disc space height narrowing. No ventral extradural defect. Normal central canal and bilateral intervertebral neural foramina. Normal lumbar lordosis. Moderate dextroscoliosis of the lumbar spine. Normal conus medullaris that terminates at the T12-L1 disc space level. L1-2: Bridging left lateral marginal spurs. Pronounced disc space height narrowing. Mild asymmetric degenerative facet arthropathy. Normal central canal and bilateral lateral recesses. Normal bilateral intervertebral neural foramina. L2-3: Prominent left lateral marginal spurs. Normal endplates. Mild left-sided disc space height narrowing. Mild asymmetric degenerative facet arthropathy. Normal central canal and bilateral lateral recesses. Mild stenosis of the left intervertebral neural foramen. Normal right intervertebral neural foramen. L3-4: Mild right lateral degenerative subluxation of L3 on L4. MODIC type II degenerative vertebral marrow fatty changes underneath the left side of the vertebral endplates. Mild ventral extra defect due to small posterior bulging annulus. Prominent posterior ligamenta flava hypertrophy. Mild to moderate bilateral degenerative facet arthropathy. Pronounced central canal stenosis with an AP canal diameter of 5 mm. Mild stenosis of the left lateral recess. Normal right lateral recess. Moderate stenosis of the left intervertebral neural foramen. Normal right intervertebral neural foramen. L4-5: Bridging of small right lateral marginal spurs. Moderate right-sided disc space height narrowing. Mild degenerative retrolisthesis of L4 on L5. Moderately pronounced right degenerative facet arthropathy. Mild left degenerative facet arthropathy. Pronounced thickening of the posterior ligamenta flava. Moderately pronounced central canal stenosis with an AP canal diameter 6.6 mm. Pronounced stenosis of the right lateral recess. Normal left lateral recess. Pronounced stenosis of the right intervertebral neural foramen. Normal left intervertebral neural foramen. L5-S1: Normal endplates. Normal disc height and morphology. Mild asymmetric degenerative facet arthropathy, right greater than left. Tapered termination of the thecal sac at the upper S1 body level. Moderate central canal stenosis with an AP canal diameter is 7.7 mm. Normal bilateral lateral recesses. Normal bilateral intervertebral neural foramina. Normal visualized sacral ala. Normal visualized paraspinous soft tissue structures. MRI/Spine Lumbar (Routine) IMPRESSION: 1. Pronounced central canal stenosis at L3-L4 disc space level with an AP canal diameter of 5 mm, moderate stenosis of the left intervertebral neural foramen and mild stenosis of the left lateral recess. Additionally, mild right lateral degenerative subluxation of L3 on L4. 2. Moderately pronounced central canal stenosis at L4-L5 disc space level with an AP canal diameter 6.6 mm, pronounced stenosis of the right lateral recess and pronounced stenosis of the right intervertebral neural foramen. Additionally, mild degenerative retrolisthesis of L4 on L5. 3. No MRI evidence of lumbar extruded disc fragment. Electronically Signed: Kp Simon MD at 16:08 EDT ,
== END | disposition home or self-care (01) ==
LOC: MRI 07:12
PROVIDERS: PCP Family Medicine; Referring Provider Family Medicine; Visit Provider Family Medicine
DX: M48.061 Spinal stenosis, lumbar region without neurogenic claudication (principal); R29.898 Other symptoms and signs involving the musculoskeletal system
CPT/HCPCS: 70030; 72148

== ENCOUNTER → 2022-02-19 | Outpatient (CLI) | payer MEDICARE, SELFPAY | END | disposition home or self-care (01) | LOC: LABSPEC 02-20 07:26 | PROVIDERS: PCP Family Medicine; Visit Provider Family Medicine | DX: N39.0 Urinary tract infection, site not specified (principal) | CPT/HCPCS: 87077; 87086; 87088; 87186 ==

== ENCOUNTER → 2022-02-24 | Outpatient (CLI) | payer MEDICARE, SELFPAY ==
--- NOTE | 2022-02-24 07:11 | MRI_ITS ---
STUDY: MRI RIGHT HIP REASON FOR EXAM: Male, 76 years old. Right hip pain. TECHNIQUE: Standardized fat and water weighted pulse sequences were obtained in all 3 orthogonal planes. COMPARISON: X-rays of the hips and pelvis dated 02/05/2022. FINDINGS: Mild loss of articular cartilage of both hips, right slightly greater than left, with small joint effusions bilaterally (coronal series 6 images 15-22). Incidentally noted is moderate to marked lumbosacral spondylosis. Normal gluteus minimus, medius and iliopsoas tendons and distal insertions. Bilateral greater trochanteric bursitis, left greater than right. Normal superior and inferior pubic rami. Normal pubic symphysis. Normal ischial tuberosity. Normal origin of the hamstring tendons. Normal visualized iliac wing, sacroiliac joint, and sacral ala. Normal visualized soft tissue structures of the pelvis. MRI/Lower Ext Joint Only (Routine) IMPRESSION: Mild bilateral osteoarthritic changes of both hips, right slightly greater than left. Bilateral greater trochanteric bursitis, left greater than right. Incidental note of moderate to marked lumbosacral spondylosis. No other abnormality identified. Electronically Signed: Ousmane Sahni, at 11:05 EDT ,
--- NOTE | 2022-02-24 07:11 | MRI_ITS ---
STUDY: MRI LEFT HIP REASON FOR EXAM: Male, 76 years old. Left hip pain. TECHNIQUE: Standardized fat and water weighted pulse sequences were obtained in all 3 orthogonal planes. COMPARISON: None. FINDINGS: Mild loss of articular cartilage of both hips, right slightly greater than left with small hip effusions (coronal series 6 images 16-23). Moderate to marked lumbosacral spondylosis. Normal gluteus minimus, medius and iliopsoas tendons and distal insertions. Bilateral greater trochanteric bursitis, left greater than right (coronal series 6 images 15-19). Normal superior and inferior pubic rami. Normal pubic symphysis. Normal ischial tuberosity. Normal origin of the hamstring tendons. Normal visualized iliac wing, sacroiliac joint, and sacral ala. Normal visualized soft tissue structures of the pelvis. MRI/Lower Ext Joint Only (Routine) IMPRESSION: Mild bilateral osteoarthritic changes of both hips, right slightly greater than left. Bilateral greater trochanteric bursitis, left greater than right. Incidental note of moderate to marked lumbosacral spondylosis. No other abnormality identified. Electronically Signed: Ousmane Sahni, at 9:27 EDT ,
== END | disposition home or self-care (01) ==
LOC: MRI 07:11
PROVIDERS: PCP Family Medicine; Visit Provider Orthopaedic Surgery
DX: M51.36 Other intervertebral disc degeneration, lumbar region (principal)
CPT/HCPCS: 73721

== ENCOUNTER → 2022-07-10 | Outpatient (CLI) | payer MEDICARE, SELFPAY ==
--- NOTE | 2022-07-10 09:26 | RAD_ITS ---
STUDY: X-RAY - RIGHT KNEE REASON FOR EXAM: Male, 76 years old. Knee pain. TECHNIQUE: 4 view(s) of the knee. COMPARISON: None. FINDINGS: Osteopenia. Mild medial compartment arthrosis. Normal lateral compartment. Mild arthrosis of the patellofemoral compartment. Small joint effusion. Normal soft tissues. RAD/Knee 4 or More Views IMPRESSION: Osteopenia within the medial and patellofemoral compartment arthrosis and small effusion. Electronically Signed: Ousmane Sahni, at 9:54 EST ,
== END | disposition home or self-care (01) ==
LOC: MTRAD 09:24
PROVIDERS: PCP Family Medicine; Referring Provider Family Medicine; Visit Provider Family Medicine
DX: M25.561 Pain in right knee (principal)
CPT/HCPCS: 73564

== ENCOUNTER → 2022-07-31 | Outpatient (CLI) | payer MEDICARE, SELFPAY ==
--- NOTE | 2022-07-31 09:48 | RAD_ITS ---
STUDY: X-RAY CHEST REASON FOR EXAM: Male, 76 years old. Cough and fever. TECHNIQUE: PA and lateral views of the chest. COMPARISON: February 17, 2019. FINDINGS: The lungs are clear and expanded. There is no demonstrated pleural abnormality. Sternal cerclage wires are present from a prior sternotomy. The heart is normal in size. Normal mediastinum and caren. Normal visualized pulmonary arteries. Normal visualized aortic arch and descending thoracic aorta. There are diffuse degenerative changes of the visualized thoracic spine. There is degenerative osteoarthritis of the bilateral shoulders. There is no demonstrated abnormality of the visualized soft tissue structures of the upper abdomen. RAD/Chest PA and Lateral IMPRESSION: No acute cardiopulmonary disease. The right lower lung infiltrate noted on the prior study has resolved. Electronically Signed: Rodrigue Stoddard DO at 17:45 EST ,
[2022-07-31 12:33] LABS: Absolute Lymphocyte Count 1.04 X10^3/uL (0.83-4.51); Absolute Neutrophil Count 5.3 X10^3/uL (2.0-7.7); Basophil# 0.01 X10^3/uL; Basophil% 0.1 % (0-1); Eosinophil# 0.09 X10^3/uL; Eosinophils% 1.2 % (0-5); Hematocrit 41.8 % (40-54); Hemoglobin 13.9 g/dL (13.0-16.5); Lymphocyte # 1.04 X10^3/ul (0.83-4.51); Lymphocyte % 13.9 % (19-41); Mean Corp Hgb Conc 33.3 g/dL (32-36); Mean Corpuscular Hgb 31.9 pg (27.0-32.0); Mean Corpuscular Volume 95.9 fL (80-94); Mean Platelet Vol. 11.8 fl (6.2-12.0); Monocyte# 1.02 X10^3/uL; Monocyte% 13.6 % (0-10); NRBC Flagged by Analyzer 0 % (0-5); Neutrophil # 5.29 X10^3/uL (2.7-7.7); Neutrophil % 70.8 % (47-70); Platelet Count 126 K/mm3 (150-450); RBC Distribution Width CV 13.4 % (11.6-14.6); RBC Distribution Width SD 47.3 fl (35.1-43.9); Red Blood Count 4.36 M/mm3 (4.6-6.2); White Blood Count 7.5 K/mm3 (4.4-11.0)
== END | disposition home or self-care (01) ==
PROVIDERS: PCP Family Medicine; Referring Provider Family Medicine; Visit Provider Family Medicine
DX: R05.9 Cough, unspecified (principal); J06.9 Acute upper respiratory infection, unspecified; Z20.822 Contact with and (suspected) exposure to COVID-19
CPT/HCPCS: 36415; 71046; 85025; 87426

== ENCOUNTER → 2023-04-20 | Outpatient (CLI) | payer MEDICARE, SELFPAY ==
--- NOTE | 2023-04-20 06:28 | ECHOD_ITS ---
Reason For Study: CAD/ASHD Procedure This was a 2D Doppler, Color Flow transthoracic echocardiogram. Exam performed in department. Left Ventricle Normal LV size. Left ventricular systolic function is normal. The estimated ejection fraction is 60 %. Stage 1 diastolic dysfunction. No regional wall motion abnormalities noted. Right Ventricle Normal RV size. Normal systolic function. Atria Normal left atrium. Normal right atrium. Mitral Valve Normal mitral valve. Tricuspid Valve Normal tricuspid valve. Mild (1+) tricuspid valve insufficiency. Pulmonary artery systolic pressure is 40 mmHg. Aortic Valve Trisinus/trileaflet aortic valve. Mild (1+) eccentric aortic valve insufficiency. Pulmonic Valve Normal pulmonic valve. Great Vessels Normal aortic root. The pulmonary artery is normal size. Normal inferior vena cava. Pericardium/Pleural No pericardial effusion. MMode/2D Measurements & Calculations LVIDd: 4.9 cm IVSd: 1.4 cm Ao root diam: 3.4 cm LVIDs: 3.1 cm LVPWd: 1.0 cm FS: 37.5 % LAV(MOD-bp): 51.9 ml LVAd ap4: 25.3 cm2 SV(MOD-sp4): 38.5 ml LAV(MOD-bp) Indexed: 25.0 ml/m2 LVLd ap4: 7.3 cm LAV(MOD-sp2): 63.7 ml EDV(MOD-sp4): 72.4 ml LAV(MOD-sp4): 39.8 ml EDV(sp4-el): 74.0 ml LVAs ap4: 15.2 cm2 LVLs ap4: 6.4 cm ESV(MOD-sp4): 33.8 ml ESV(sp4-el): 30.6 ml EF(MOD-sp4): 53.2 % EF(sp4-el): 58.7 % SV(sp4-el): 43.4 ml LA A4 area: 15.9 cm2 LA dimension(2D): 3.8 cm RA A4 area: 12.1 cm2 TAPSE: 0.73 cm Time Measurements MV dec time: 0.18 sec Doppler Measurements & Calculations MV E max arjun: 46.2 cm/sec Lat Peak E' Arjun: 13.7 cm/sec Med Peak E' Arjun: 8.9 cm/sec MV A max arjun: 97.3 cm/sec E/E' lat: 3.4 E/E' med: 5.2 MV E/A: 0.47 MV V2 max: 100.2 cm/sec Ao V2 max: 116.6 cm/sec MV max P.0 mmHg MV dec slope: 325.2 cm/sec2 Ao max P.5 mmHg MV V2 mean: 50.6 cm/sec Ao V2 mean: 76.1 cm/sec MV mean P.2 mmHg Ao mean P.8 mmHg MV V2 VTI: 29.6 cm Ao V2 VTI: 23.0 cm AI max arjun: 403.1 cm/sec PA V2 max: 105.4 cm/sec TR max arjun: 298.0 cm/sec AI max P.0 mmHg PA V2 mean: 72.5 cm/sec TR max P.5 mmHg AI dec slope: 229.8 cm/sec2 AI P1/2t: 513.8 msec ECHO/Echo Complete Interpretation Summary Normal LV size. Left ventricular systolic function is normal. The estimated ejection fraction is 60 %. Stage 1 diastolic dysfunction. Pulmonary artery systolic pressure is 40 mmHg. Ordering Physician: Chin Stubbs Referring Physician: Chin Stubbs Performed By: Berna Coffey RCS
--- NOTE | 2023-04-20 13:47 | STRESSREP_ITS ---
Stress Test Report Exercise myocardial perfusion stress test. 77-year-old man with a history of coronary artery disease Stress protocol: Resting EKG demonstrates normal sinus rhythm with a rate of 70 bpm resting blood pressure is 140/78 mmHg. The patient exercised according to the regular Terrell protocol for a total duration of 5 minutes and 9 seconds attaining a maximum heart rate of 157 bpm which was 111% of maximum predicted heart rate; the maximum workload was 7 metabolic equivalents. At rest there were no ST or T wave changes noted to suggest ischemia and at peak exercise upsloping ST changes only were noted which did not meet the criteria for ischemia. No clinical angina was noted the test was terminated due to the target heart rate being achi eved/fatigue. The peak blood pressure was 218/80 mmHg. [place]-pressure product was [address]. Myocardial perfusion protocol. 13.2 mCi of technetium 99m sestamibi was injected at rest. The patient exerci sed according to regular Terrell protocol for total duration of 5minutes and 9 seconds and at peak exercise 41 mCi of technetium 99m sestamibi was injected stress images were obtained stress and rest images were reconstructed in comparing the short axis vertical long and horizontal long axis. Gated images were also obtained. Perfusion SPECT analysis: Review of the stress images demonstrate normal uptake of tracer noted in all areas of the myocardium. The resting images similarly demonstrate normal uptake of tracer noted in all areas of the myocardium. No areas of reversibility are noted to suggest ischemia no previous infarct was noted. Gated SPECT analysis: The gated ejection fraction is 60%. Conclusion: Normal exercise myocardial perfusion stress test at a [moderate workload.] [Preserved] ejection fraction.
== END | disposition home or self-care (01) ==
LOC: CVS 06:26
PROVIDERS: PCP Family Medicine; Referring Provider Internal Medicine Cardiovascular Disease; Visit Provider Internal Medicine Cardiovascular Disease
DX: I25.10 Atherosclerotic heart disease of native coronary artery without angina pectoris (principal); Z95.1 Presence of aortocoronary bypass graft
CPT/HCPCS: 78452; 93017; 93306; A9500; A4216

== ENCOUNTER 2024-11-23 15:34 | Outpatient (CLI) | payer MEDICARE, SELFPAY ==
--- NOTE | 2024-11-23 | LES_PTH ---
PATIENT: KRYSTIAN CHILD [facility][id number] AGE/SX: 79/M ROOM: RE11/23/[address]: Dr. Florentin Marino DO : 1945 BED: DIS: 11/23/2024 SPEC #: [id number] RECD: 11/23/24 15:24 STATUS: SHAMIKA LOUISE #: [id number] ALAN: 11/23/24 00:[address]: Florentin Marino DEPT: SURGICAL PATHOLOGY RECD BY: Daniel Cano Tissues: A - Skin of forearm, NOS Procedures: Surgery Specimen Level IV HEADER OPERATION: Excision skin lesion, left forearm PRE-OP DIAGNOSIS: New skin lesion, favor keratoacanthoma TISSUE SUBMITTED: A- Skin lesion, left forearm MICROSCOPIC DIAGNOSIS A. 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 GROSS DESCRIPTION A. Received in formalin labeled with the patient's name and date of . Designated as L forearm is a 2.5 x 1.2 cm focally disrupted, hurley hairbearing skin ellipse devoid of orientation, excised to a maximum depth ranging from <0.1 cm to 0.4 cm. The resection margin is inked orange. Eccentrically on the epidermal surface is a 0.4 x 0.3 cm brown eschar with surrounding hypopigmentation collectively measuring 1.2 x 0.9 cm; the eschar is located 0.5 cm from the peripheral edge while the surrounding hypopigmentation is located 0.3 cm from the peripheral edge. Sectioning reveals hurley-white fibrotic cut surfaces underlying the lesion, located 0.3 cm from the resection margin. The specimen is entirely submitted in 3 cassettes, to include the in cassette A1. IA 11/24/2024 CPT:35645
== END 2024-11-23 23:59 | disposition home or self-care (01) ==
PROVIDERS: PCP Family Medicine; Referring Provider Family Medicine; Visit Provider Family Medicine
DX: C44.629 Squamous cell carcinoma of skin of left upper limb, including shoulder (principal)
CPT/HCPCS: 88305

== ENCOUNTER → 2025-02-02 | Outpatient (CLI) | payer MEDICARE, SELFPAY ==
--- NOTE | 2025-02-02 07:10 | MRI_ITS ---
PROCEDURE: SPINE LUMBAR (ROUTINE) 02/02/2025 REASON FOR EXAM: WORSENING LUMBAR STENOSIS AN LOWER LEG SYMPTOMS TECHNIQUE: Procedure Code: MRISPL Modality: MR Procedure: SPINE LUMBAR (ROUTINE) COMPARISON: None. FINDINGS: T11-L1: Vertebral bodies: Negative. Disk Space: Moderate degenerative disc disease mid and lower lumbar spine. Negative for Modic changes. Facet Joints: Negative for bilateral facet joint hypertrophy. Neural foramina: Negative for neural foraminal narrowing Spinal Canal: Negative for central spinal narrowing. L1-2: Vertebral bodies: Negative. Disk Space: Disc desiccation. Moderate loss of disc height. Negative for Modic changes. Facet Joints: Moderate bilateral facet joint hypertrophy. Neural foramina: Mild bilateral neural foraminal narrowing Spinal Canal: Negative for subarticular zone narrowing. Negative for central spinal narrowing. L2-3: Vertebral bodies: Anterior osteophyte formation. Disk Space: Negative. Negative for Modic changes. Facet Joints: [id number] bilateral facet joint hypertrophy. Neural foramina: Mild bilateral neural foraminal narrowing Spinal Canal: Mild left subarticular zone narrowing. Negative for central spinal narrowing. L3-4: Vertebral bodies: Anterior osteophyte formation. Disk Space: Disc desiccation. Moderate loss of disc height. Schmorl's node superior endplate of L4 with mild edematous changes. Hemangioma of L4. Facet Joints: [id number] bilateral facet joint hypertrophy. Neural foramina: Severe bilateral neural foraminal narrowing Spinal Canal: Severe bilateral subarticular zone narrowing. Severe central spinal narrowing. L4-5: Vertebral bodies: Mild anterior osteophyte formation. Disk Space: Disc desiccation moderate loss of disc height. Negative for Modic changes. Facet Joints: Severe bilateral bilateral facet joint hypertrophy. Neural foramina: Moderate to severe right and moderate left neural foraminal narrowing Spinal Canal: Severe right subarticular zone narrowing. Moderate right central spinal narrowing. L5-S1: Vertebral bodies: Negative. Disk Space: Negative. Negative for Modic changes. Facet Joints: Mild bilateral bilateral facet joint hypertrophy. Neural foramina: Negative for neural foraminal narrowing Spinal Canal: Negative for subarticular zone narrowing. Negative for central spinal narrowing. Vertebrae: Moderate scoliosis convex right in the mid lumbar spine. Otherwise normal bone marrow signal. Conus Medullaris: Spinal cord is normal and ends at L1. Imaged kidneys aorta otherwise negative. The remainder of the exam negative. MRI/Spine Lumbar (Routine) IMPRESSION: Multilevel multifactorial degenerative changes lumbar spine overall most promin ent L3-L4 and L4-5 as above. Reading Location: [id number]
--- OUTSIDE RECORDS SUMMARY | 2025-02-02 07:23 | XMS RPT_ITS | CCD ---
Author Organization [facility] [employer] Care Team Providers Care Assembler Ping Pong Table Name Role Phone BRAEDEN AUGUST Admitting Unavailable EVELYNE, CHIN S Referring Unavailable LAHORRAOSCAR Attending Unavailable TESS, GERSON F Consulting Unavailable ORLANDO JACOBS (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 CLAIMS AIDE) Attending Unavailable THORLIGIA PONCE Referring Unavailable ORLANDO JACOBS (REHAN) Attending Unavailable LIGIA MCRAE Referring Unavailable OFUNGWBRAEDEN Sweeney Admitting Unavailable EVELYNE, CHIN S Referring Unavailable IMCA Primary Care Unavailable OSCAR VILLANUEVA Consulting Unavailable OSCAR VILLANUEVA Attending Unavailable ISABELL, RAJI Consulting Unavailab le TESS GERSON F Consulting Unavailable ORLANDO JACOBS Attending Unavailable IMCA Referring Unavailable IMCA Primary Care Unavailable ORLANDO JACOBS Attending Unavailable IMCA Referring Unavailable [facility] Primary Care Unavailable Dr. Lgiia Mcrae Primary Care Provider [phone] Dr. Ligia Mcrae Referring Provider [phone] Dr. Oscar Winkler Attending Provider [phone] Dr. Ligia Mcrae Primary Care Provider [phone] Dr. Ligia Mcrae Referring Provider [phone] Dr. Jarad Krishnan Attending Provider [phone] Ligia Mcrae Primary Care Provider [phone] Dr. Ligia Mcrae Referring Provider [phone] Dr. Chin Stubbs Attending Provider [phone] Dr. Chin Stubbs Referring Provider [phone] Dr. Chin Stubbs Other Provider [facility] CRIMINAL DEFENSE ATTORNEY, CRIMINAL DEFENSE ATTORNEYAdná Brunner Attending Provider [phone] Dr. Ligia Mcrae DO Primary Care Provider Dr. Ligia Mcrae DO Referring Provider [phone] Dr. Oscar Winkler MD Attending Provider [phone] Dr. Ligia Mcrae DO Attending Provider [phone] Ligia Mcrae Primary Care Unavailable Ligia Mcrae Attending Unavailable Ligia Mcrae Referring Unavailable Ligia Mcrae Referring Unavailable Ligia Mcrae Primary Care Unavailable Ligia Mcrae Attending Unavailable Ligia Mcrae Referring Unavailable Oscar Winkler Attending Unavailable Ligia Mcrae Primary Care Unavailable Ligia Mcrae Referring Unavailable Ligia Mcrae Primary Care Unavailable Oscar Winkler Attending Unavailable Medications Current Medications Medication Drug Class(es) Dates Sig (Normalized) Sig (Original) aspirin 81 mg delayed release oral tablet (14 sources) Platelet Aggregation Inhibitor, Nonsteroidal Anti-inflammatory Drug Start: 03-16-2023 take 1 tablet by mouth once daily Aspirin (Adult Aspirin Regimen) 81 mg tablet,delayed release (DR/EC) Active 81 mg PO DAILY March 16, 2023 10:29am blood thinner Start: 02-26-2023 End: 03-16-2023 Aspirin (Adult Aspirin Regim en) 81 mg tablet,delayed release (DR/EC) Discontinued 162 mg PO DAILY February 26, 2023 2:27pm March 16, 2023 10:30am blood thinner Start: 06-22-2018 End: 02-26-2023 take 1 tablet by mouth once daily Aspirin (Adult Aspirin Regimen) 81 mg tablet,delayed release (DR/EC) Discontinued 81 mg PO DAILY June 22, 2018 1:00am February 26, 2023 2:29pm blood thinner methylPREDNISolone 4 mg oral tablet (3 sources) Corticosteroid Start: 03-16-2023 Methylprednisolone 4 mg tablet Active 4 mg PO as needed March 16, 2023 12:00am traMADol hydrochloride 50 mg oral tablet (6 sources) Opioid Agonist Start: 02-26-2023 take 1 tablet by mouth twice daily as needed Tramadol 50 mg tablet Active 50 mg PO TWICE A DAY as needed February 26, 2023 2:27pm Start: 10-07-2022 End: 02-26-2023 take 1 tablet by mouth once daily Tramadol 50 mg tablet Discontinued 50 mg PO DAILY October 07, 2022 12:00am February 26, 2023 2:29pm Completed/Discontinued Medications Medication Drug Class(es) Dates Sig (Normalized) Sig (Original) acetaminophen 500 mg oral tablet (8 sources) Start: 02-17-2019 End: 02-26-2023 take 1 tablet by mouth every four hours as needed for pain Acetaminophen 500 MG tablet Discontinued 500 mg PO EVERY 4 HOURS NEEDED as needed for Pain February 17, 2019 12:00am February 26, 2023 2:28pm atorvastatin 40 mg oral tablet (20 sources) HMG-CoA Reductase Inhibitor Start: 08-05-2018 End: 02-17-2019 take 1 tablet by mouth at bedtime Atorvastatin 40 mg tablet Discontinued 40 mg PO AT BEDTIME 90 3 February 15, 2019 2:53pm February 17, 2019 12:38pm Start: 06-22-2018 End: 08-05-2018 take 1 tablet by mouth at bedtime Atorvastatin 10 mg tablet Discontinued 10 mg PO AT BEDTIME June 22, 2018 1:00am August 05, 2018 1:27pm cholecalciferol 0.025 mg oral capsule (8 sources) Vitamin D Start: 12-01-2017 End: 08-05-2018 take 1 capsule by mouth once daily Cholecalciferol (Vitamin D3) 1,000 unit capsule Discontinued 1000 U PO DAILY December 01, 2017 12:00am August 05, 2018 1:36pm clopidogrel 75 mg oral tablet (8 sources) P2Y12 Platelet Inhibitor Start: 06-23-2018 End: 08-05-2018 take 1 tablet by mouth once daily Clopidogrel (Plavix) 75 mg tablet Discontinued 75 mg PO DAILY 30 June 23, 2018 1:00am August 05, 2018 1:28pm magnesium oxide 400 mg oral capsule (8 sources) Start: 12-01-2017 End: 08-05-2018 take 1 capsule by mouth once daily Magnesium Oxide 400 mg capsule Discontinued 400 mg PO DAILY December 01, 2017 12:00am August 05, 2018 1:37pm metoprolol tartrate 50 mg oral tablet (20 sources) beta-Adrenergic Travis Start: 08-05-2018 End: 05-23-2024 take 1 tablet by mouth twice daily Metoprolol Tartrate 50 mg tablet Discontinued 50 mg PO TWICE A DAY 180 3 February 12, 2023 2:01pm March 16, 2023 10:51am blood pressure Problems Active Problems Problem Classification Problem Date Documented Date Episodic/Chronic Acute and unspecified renal failure (8 sources) Injury of kidney; Translations: [Acute kidney failure, unspecified] 03-30-2019 Episodic Coagulation and hemorrhagic disorders (8 sources) Platelet count below reference range; Translations: [Thrombocytopenia, unspecified] 03-30-2019 Chronic Conditions associated with dizziness or vertigo (8 sources) Lightheadedness; Translations: [Dizziness and giddiness] 02-17-2019 Episodic Coronary atherosclerosis and other heart disease (9 sources) Atherosclerotic heart disease of [place] coronary artery with other forms of angina pectoris; Translations: [Coronary atherosclerosis] Onset: 06-25-2018 02-17-2019 Chronic Comment on above: CABG x 4 TYLER-LAD, S VG-D1, SVG-OM1 and SVG-RCA 07/01/18 Deficiency and other anemia (8 sources) Macrocytic anemia; Translations: [Nutritional anemia, unspecified] 03-30-2019 Episodic Comment on above: etiology unclear Disorders of lipid metabolism (9 sources) Hyperlipidemia; Translations: [Hyperlipidemia, unspecified] 02-17-2019 Chronic Essential hypertension (9 sources) Essential hypertension; Translations: [Essential (primary) hypertension] 02-17-2019 Chronic Comment on above: She denies this. He was on no medications prior to CABG in June 2018 Fluid and electrolyte disorders (20 sources) Hyponatremia; Translations: [Hypo-osmolality and hyponatremia] 03-30-2019 Episodic Nonspecific chest pain (16 sources) Right sided chest pain; Translations: [Chest pain, unspecified] 11-16-2018 Episodic Osteoarthritis (9 sources) Osteoarthritis of hip; Translations: [Osteoarthritis of hip, unspecified] Chronic Other and unspecified benign neoplasm (8 sources) History of polyp of colon; Translations: [Personal history of colonic polyps] 02-17-2019 Episodic Other and unspecified benign neoplasm (8 sources) Polyp of colon; Translations: [Polyp of colon] 11-01-2020 Episodic Other lower respiratory disease (10 sources) Lung mass; Translations: [Other nonspecific abnormal finding of lung field] 04-12-2019 Episodic Other lower respiratory disease (1 source) Other nonspecific abnormal finding of lung field; Translations: [Swelling, mass, or lump in chest] Episodic Other screening for suspected conditions (not mental disorders or infectious disease) (19 sources) Thallium stress test abnormal; Translations: [Abnormal result of other cardiovascular function study] Episodic Other skin disorders (1 source) Disorder of the skin and subcutaneous tissue, unspecified; Translations: [Disorder of the skin and subcutaneous tissue, unspecified] Onset: 12-18-2024 Episodic Pneumonia (except that caused by tuberculosis or sexually transmitted disease) (8 sources) Community acquired pneumonia; Translations: [Pneumonia, unspecified organism] 03-30-2019 Episodic Residual codes; unclassified (8 sources) Family history of cancer of colon; Translations: [Family history of malignant neoplasm of digestive organs] 02-17-2019 Episodic Spondylosis; intervertebral disc disorders; other back problems (20 sources) Lumbosacral stenosis; Translations: [Spinal stenosis, lumbosacral region] Onset: 01-30-2025 Episodic Comment on above: DDD Unclassified (1 source) Infection following a procedure, other surgical site, initial encounter; Translations: [Infection following a procedure, other surgical site, initial encounter] Onset: 07-13-2018 Past or Other Problems Problem Classification Problem Date Documented Da te Episodic/Chronic Coronary atherosclerosis and other heart disease (4 sources) Presence of aortocoronary bypass graft; Translations: [Aortocoronary bypass status] Onset: 07-01-2018 03-16-2023 Episodic Immunizations and screening for infectious disease (16 sources) Lupus anticoagulant disorder; Translations: [Raised antibody titer] Onset: 10-05-2024 Episodic Comment on above: Clinically stable, n o clotting episodes.CBC and chemistry reviewed, within normal limits, still has Lupus anticoagulant positivity. Results Test Name Value Interpretation Reference Range Facility Surgery Specimen Level Mckenna 11-23-2024 Surgery Specimen Level IV Patient Age/Sex Location Account Attending Physician DANYELLKRYSTIAN Azael /M [facility] [id number] Dr. Ligia Mcrae, Specimen: [id number] Received: 11/23/24 Status: SHAMIKA Hernandezdl Num: [id number] Spec Type: Lesion Subm Dr: Dr. Ligia Mcrae DO HEAD OPERATION: Excision skin lesion, left forearm PRE-OP DIAGNOSIS: New skin lesion, favor keratoacanthoma TISSUE SUBMITTED: A- Skin lesion, left forearm MICROSCOPIC DIAGNOSIS A. 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 GROSS DESCRIPTION A. Received in formalin labeled with the patient's name and date of . Designated as L forearm is a 2.5 x 1.2 cm focally disrupted, hurley hairbearing skin ellipse devoid of orientation, excised to a maximum depth ranging from <0.1 cm to 0.4 cm. The resection margin is inked orange. Eccentrically on the epidermal surface is a 0.4 x 0.3 cm brown eschar with surrounding hypopigmentation collectively measuring 1.2 x 0.9 cm; the eschar is located 0.5 cm from the peripheral edge while the surrounding hypopigmentation is located 0.3 cm from the peripheral edge. Sectioning reveals hurley-white fibrotic cut surfaces underlying the lesion, located 0.3 cm from the resection margin. The specimen is entirely submitted in 3 cassettes, to include the in cassette A1. [place] 11/24/2024 [facility]:[id number] Patient Age/Sex Location Account Attending Physician KRYSTIAN CHILD 79/M [facility] [id number] Dr. Ligia Mcrae DO Signed (signature on file) Dr. Yohana Reeves DO 12/07/241925 Normal [facility] Comment on above: Performed By: #### P SUIV #### [facility] [address] [place], [address] Oncology Visit Reporton 09-22 Oncology Visit Report [facility] [address] [place] [address] OFFICE VISIT Date of Service: 10/05/24 1443 MR#: [id number] Acct: [id number] Name: KRYSTIAN CHILD Rep #: [id number] : 1945 From: Oscar Winkler MD Age/Sex: 78/M Location: [facility] [place] Status: Signed HPI Subjective Date of Service 10/05/24 Chief Complaint F/u for lupus anticoagulant positivity. History of Present Illness 78y.o.man was admitted in January 2019 at [facility] for pneumonia. He also had R middle lobe density. CT chest in March 2019 was normal. He was found to have abnormal/increase PTT which has persisted since that admission so was referred for evaluation. He denied bleeding gums, clotting, bleeding into soft tissue, joint bleeding or family history of bleeding. He is on observation. Had repeat blood work and comes for follow up. [facility] Medical History (Updated 10/05/24 @ 15:[address] Oscar Winkler MD) Back pain Wears glasses Arthritis Former smoker Leg cramps History of stress test ( 06/16/18) Hx of echocardiogram ( 06/26/18) Hx of lupus anticoagulant disorder TIA (transient ischemic attack) (07/2005) Wound cellulitis after surgery Essential (primary) hypertension Atherosclerosis of coronary artery of [place] heart without angina pectoris Scoliosis Osteoarthritis DDD (degenerative disc disease), lumbar Cervical spondylosis Vitamin D deficiency Erectile dysfunction Hyperlipidemia Carotid artery disease Colon polyps Surgical History Cataract History of cardiac catheterization ( 06/25/18) H/O coronary artery bypass surgery (07/01/18) History of left heart catheterization (06/25/18) Hx of colonoscopy with polypectomy ( 03/2018) Hx of colonoscopy History of appendectomy Family History Father Colon cancer Mother Diabetes Heart disease Hypertension CAD (coronary artery disease) CVA (cerebral vascular accident) Brother CVA (cerebral vascular accident) Myocardial infarction age 85 CAD (coronary artery disease) Social History Smoking Status: Former smoker alcohol intake: never Intake Vital Signs 10/07/23 10:01 10/05/24 14:43 Height 5 ft 10 in 5 ft 10 in Weight: 93.185 kg BMI 29.5 BP 157/77 H Blood Pressure Location Rt brachial Position Sitting Respiration 18 Pulse 58 L Pulse Source Monitor Temp 98.7 F Temperature Source Temporal Artery Pulse Oximetry (%) 94 Oxygen Delivery Method room air Intake Is patient in pain?: No Allergies No Known Allergies Allergy (Verified 10/05/24 14:46) Medications ???Medication ???Instructions ???Recorded ???Confirmed ???Type tramadol 50 mg tablet 50 mg PO BID PRN 02/26/23 10/05/24 History aspirin 81 mg tablet,delayed 81 mg PO DAILY blood thinner 03/1610/05/24 History release (Adult Aspirin Regimen) methylprednisolone 4 mg tablet 4 mg PO PRN 03/16/23 10/05/24 Hist ory metoprolol tartrate 50 mg tablet 50 mg PO BID blood pressure #180 1 10/05/24 Rx tabs Have you fallen in the past year?: No Central Venous Access Central Venous Access: No Exam Physical Exam Const alert, oriented x3, no apparent distress and average body habitus General Appearance: cooperative and comfortable HEENT normocephalic, external ears normal and external nose normal Eyes PERRL, conjunctivae normal and no scleral icterus Neck full ROM and supple Lymph Lymphatic: no lymphadenopathy noted Chest inspection of chest normal Resp normal respiratory effort, no use of accessory muscles and clear to auscultation bilaterally Cardio regular rate, regular rhythm, S1 normal heart sound and S2 normal heart sound GI normal to inspection, nondistended, normoactive bowel sounds Back/Spine no CVA tenderness and thoracic and lumbar spine normal to inspection Extremity normal to inspection and no clubbing, cyanosis or edema Skin no rashes or lesions noted Neuro oriented x3, moves all extremities and no focal motor deficits Psych mental status grossly normal Coding Level of Care Code Off vis,est,level 3 Exam Problem Focused Diagnoses Lupus anticoagulant positive R76.0 Assessment and Plan Assessment and Plan (1) Lupus anticoagulant positive: Status: Chronic Comment: Clinically stable, no clotting episodes. CBC and chemistry reviewed, within normal limits, still has Lupus anticoagulant positivity. Plan: To continue observation. Plan Details Follow Up: 12 Months Clinical Quality Measures Falls Risk Screening/Assistive Devices Have you fallen in the past year?: No 10/05/24 1512 Date (more content not included)... Normal [facility] Lupus Anticoagulant Compon 0 - aPTT Coag (Bld) [Time] 92.4 s High 0.0-43.5 [facility] Comment on above: Performed By: #### L 4500.0100 #### [facility] [address] [place], [address] aPTT Coag (Bld) [Time] 82.6 s High 0.0-40.5 [facility] Comment on above: Performed By: #### L 4500.0100 #### [facility] [address] [place], [address] DILUTE PT (dPT) 69.6 sec High 0.0-47.6 [facility] Comment on above: Performed By: #### L 4500.0100 #### [facility] [address] [place], [address] dPT Conf. Ratio 1.27 Ratio Normal 0.00-1.34 [facility] Comment on above: Performed By: #### L 4500.0100 #### [facility] [address] [place], [address] DRVVT 61.5 sec Abnormal 0.0-47.0 [facility] Comment on above: Performed By: #### L 4500.0100 #### [facility] [address] [place], [address] DRVVT CONFIRM 1.4 ratio Abnormal 0.8-1.2 [facility] Comment on above: Performed By: #### L 4500.0100 #### [facility] [address], [place], [id number] dRVVT MIX 59.8 sec Abnormal 0.0-40.4 [facility] Comment on above: Performed By: #### L 4500.0100 #### [facility] [address], [place], [id number] HEX PHAS PHOSPH 49 sec Abnormal 0-11 [facility] Comment on above: Performed By: #### L 4500.0100 #### [facility] [address] [place], [address] Interpretation Comment: Normal . [facility] Comment on above: Result Comment: Resu lts are consistent with the presence of a lupus anticoagulant. As only persistent lupus anticoagulant (LA) positivity meets laboratory diagnostic criteria for antiphospholipid syndrome, repeat testing in 12 or more weeks is recommended, ideally in the absence of anticoagulant therapy. Important Note: The results of LA testing are not valid for patients receiving heparin, direct Xa inhibitor (e.g., rivaroxaban, apixaban) or direct thrombin inhibitor (e.g., dabigatran) therapy. These drugs may cause false positive LA results but will not interfere with anticardiolipin and beta-2 glycoprotein 1 antibody testing. Performed at: [address] [id number] Log Getter: Kim Brito MD, Phone: [phone] Performed By: #### L 4500.0100 #### [facility] [address], [place], [id number] THROMBIN TIME 19.2 sec Normal 0.0-23.0 [facility] Comment on above: Performed By: #### L 4500.0100 #### [facility] [address] [place], [address] Absolute lymphocyte countOrd ered By: Oscar Winkler on 09-22-2024 Lymphocytes Auto (Unsp spec) [#/Vol] 1.86 10*3/uL 0.83-4.51 [facility] Absolute neutrophil countOrd ered By: Oscar Winkler on 09-22-2024 Neutrophils (Bld) [#/Vol] 4.5 10*3/uL 2.0-7.7 [facility] Activated partial thrombopla stin time (aPTT) in platelet poor plasma by coagulation aOrdered By: Oscar Winkler on 09-22-2024 aPTT Coag (PPP) [Time] 53.8 s High 24.1-36.2 [facility] Anion gap in Serum or Plasma Ordered By: Oscar Winkler on 09-22-2024 Anion gap [Moles/Vol] 12 mmol/L 5-15 [facility] Automated lymphocyte count a s percentage of total leukocytesOrdered By: Oscar Winkler on 09-22-2024 Lymphocytes/100 WBC Auto (Unsp spec) 26.1 % 19-41 [facility] BUN/creatinine ratioOrdered By: [facility] on 09-22-2024 Urea nitrogen/Creatinine [Mass ratio] 19.8 mg/mg 10-20 [facility] Basophil percentageOrdered B y: Oscar Winkler on 09-22-2024 Basophils/100 WBC (Bld) 0.3 % 0-1 [facility] Bilirubin, totalOrdered By: [facility] 09-22-2024 Bilirubin [Mass/Vol] 0.34 mg/dL 0.00-1.30 [facility] CBC W/Diff, Automatedon Absolute Lymph 1.86 X10 3/uL Normal 0.83-4.51 [facility] Comment on above: Performed By: #### L 300.3900, L300.4310, L500.4050, L100.0100 #### [facility] [address], [place], [id number] Absolute Neut 4.5 X10 3/uL Normal 2.0-7.7 [facility] Comment on above: Performed By: #### L 300.3900, L300.4310, L500.4050, L100.0100 #### [facility] [address] [place], [address] Basophils/100 WBC (Bld) 0.3 % Normal 0-1 [facility] Comment on above: Performed By: #### L 300.3900, L300.4310, L500.4050, L100.0100 #### [facility] [address] [place], [address] Eosinophils/100 WBC (Bld) 2.4 % Normal 0-5 [facility] Comment on above: Performed By: #### L 300.3900, L300.4310, L500.4050, L100.0100 #### [facility] [address] [place], [address] Erythrocyte distribution width (RBC) [Ratio] 13.7 % Normal 11.6-14.6 [facility] Comment on above: Performed By: #### L 300.3900, L300.4310, L500.4050, L100.0100 #### [facility] [address] [place], [address] Hematocrit (Bld) [Volume fraction] 42.3 % Normal 40-54 [facility] Comment on above: Performed By: #### L 300.3900, L300.4310, L500.4050, L100.0100 #### [facility] [address] [place], [address] Hemoglobin (Bld) [Mass/Vol] 14.6 g/dL Normal 13.0-16.5 [facility] Comment on above: Performed By: #### L 300.3900, L300.4310, L500.4050, L100.0100 #### [facility] [address] [place], [address] IG% 0.300 Normal 0.0-0.9 [facility] Comment on above: Result Comment: IG% - Immature Granulocytes (promyelocytes, myelocytes and metamyelocytes) > 1% indicates that a LEFT SHIFT is Present. Performed By: #### L 300.3900, L300.4310, L500.4050, L100.0100 #### [facility] [address] [place], [address] Lymphocytes/100 WBC (Bld) 26.1 % Normal 19-41 [facility] Comment on above: Performed By: #### L 300.3900, L300.4310, L500.4050, L100.0100 #### [facility] [address] [place], [address] MCH (RBC) [Entitic mass] 32.0 pg Normal 27.0-32.0 [facility] Comment on above: Performed By: #### L 300.3900, L300.4310, L500.4050, L100.0100 #### [facility] [address] [place], [address] MCHC (RBC) [Mass/Vol] 34.5 g/dL Normal 32-36 [facility] Comment on above: Performed By: #### L 300.3900, L300.4310, L500.4050, L100.0100 #### [facility] [address] [place], [address] MCV (RBC) [Entitic vol] 92.8 fL Normal 80-94 [facility] Comment on above: Performed By: #### L 300.3900, L300.4310, L500.4050, L100.0100 #### [facility] [address] [place], [address] Monocytes/100 WBC (Bld) 8.1 % Normal 0-10 [facility] Comment on above: Performed By: #### L 300.3900, L300.4310, L500.4050, L100.0100 #### [facility] [address] [place], [address] Neutrophils/100 WBC (Bld) 62.8 % Normal 47-70 [facility] Comment on above: Performed By: #### L 300.3900, L300.4310, L500.4050, L100.0100 #### [facility] [address] [place], [address] Nucleated RBC (Bld) [#/Vol] 0 10*3/uL Normal 0-5 [facility] Comment on above: Performed By: #### L 300.3900, L300.4310, L500.4050, L100.0100 #### [facility] [address] [place], [address] Platelet mean volume (Bld) [Entitic vol] 10.8 fL Normal 6.2-12.0 [facility] Comment on above: Performed By: #### L 300.3900, L300.4310, L500.4050, L100.0100 #### [facility] [address] [place], [address] Platelets (Bld) [#/Vol] 165 10*3/uL Normal 150-450 [facility] Comment on above: Performed By: #### L 300.3900, L300.4310, L500.4050, L100.0100 #### [facility] [address] [place], [address] RBC (Bld) [#/Vol] 4.56 10*6/uL Low 4.6-6.2 [facility] Comment on above: Performed By: #### L 300.3900, L300.4310, L500.4050, L100.0100 #### [facility] [address] [place], [address] RDW SD 46.4 fl High 35.1-43.9 [facility] Comment on above: Performed By: #### L 300.3900, L300.4310, L500.4050, L100.0100 #### [facility] [address] [place], [address] WBC (Bld) [#/Vol] 7.1 10*3/uL Normal 4.4-11.0 [facility] Comment on above: Performed By: #### L 300.3900, L300.4310, L500.4050, L100.0100 #### [facility] [address] [place], [address] Carbon dioxide, total [Moles /volume] in Central venous bloodOrdered By: Oscar Winkler on 09-22-2024 CO2 [Moles/Vol] 22.4 mmol/L 21.0-32.0 [facility] Chloride assayOrdered By: Karla Winkler on 09-22-2024 Chloride [Moles/Vol] 105 mmol/L 98-108 [facility] Comprehensive Metabolic Prof ilon 09-22-2024 Albumin [Mass/Vol] 4.1 g/dL Normal 3.4-4.8 [facility] Comment on above: Performed By: #### L 300.3900, L300.4310, L500.4050, L100.0100 #### [facility] [address] [place], [address] Albumin/Globulin [Mass ratio] 1.5 {ratio} Normal 0.9-2.4 [facility] Comment on above: Performed By: #### L 300.3900, L300.4310, L500.4050, L100.0100 #### [facility] [address] [place], [address] ALK PHOS 58 U/L Normal 40-129 [facility] Comment on above: Performed By: #### L 300.3900, L300.4310, L500.4050, L100.0100 #### [facility] [address] [place], [address] ALT [Catalytic activity/Vol] 29 U/L Normal <=46 [facility] Comment on above: Performed By: #### L 300.3900, L300.4310, L500.4050, L100.0100 #### [facility] [address] [place], [address] AST [Catalytic activity/Vol] 26 U/L Normal <=37 [facility] Comment on above: Performed By: #### L 300.3900, L300.4310, L500.4050, L100.0100 #### [facility] [address] [place], [address] Bilirubin [Mass/Vol] 0.34 mg/dL Normal 0.00-1.30 [facility] Comment on above: Performed By: #### L 300.3900, L300.4310, L500.4050, L100.0100 #### [facility] [address] [place], [address] BUN/CRE 19.8 RATIO Normal 10-20 [facility] Comment on above: Performed By: #### L 300.3900, L300.4310, L500.4050, L100.0100 #### [facility] [address] [place], [address] Calcium [Mass/Vol] 9.3 mg/dL Normal 7.6-11.0 [facility] Comment on above: Performed By: #### L 300.3900, L300.4310, L500.4050, L100.0100 #### [facility] [address] [place], [address] Chloride [Moles/Vol] 105 mmol/L Normal 98-108 [facility] Comment on above: Performed By: #### L 300.3900, L300.4310, L500.4050, L100.0100 #### [facility] [address] [place], [address] CO2 [Moles/Vol] 22.4 mmol/L Normal 21.0-32.0 [facility] Comment on above: Performed By: #### L 300.3900, L300.4310, L500.4050, L100.0100 #### [facility] [address] [place], [address] Creatinine [Mass/Vol] 1.42 mg/dL High 0.70-1.20 [facility] Comment on above: Performed By: #### L 300.3900, L300.4310, L500.4050, L100.0100 #### [facility] [address] [place], [address] ECRCL 42.84 ml/min Low 50-250 [facility] Comment on above: Performed By: #### L 300.3900, L300.4310, L500.4050, L100.0100 #### [facility] [address] [place], [address] GAP 12 Normal 5-15 [facility] Comment on above: Performed By: #### L 300.3900, L300.4310, L500.4050, L100.0100 #### [facility] [address] [place], [address] GFR/1.73 sq M.predicted among non-blacks MDRD (S/P/Bld) [Vol rate/Area] 50 mL/min/{1.73_m2} Low >60 [facility] Comment on above: Result Comment: mL/m in/1.73m2 CKD-EPI Creatinine Equation (2020) Performed By: #### L 300.3900, L300.4310, L500.4050, L100.0100 #### [facility] [address] [place], [address] Globulin (S) [Mass/Vol] 2.7 g/dL Normal 2.2-4.2 [facility] Comment on above: Performed By: #### L 300.3900, L300.4310, L500.4050, L100.0100 #### [facility] [address] [place], [address] Glucose [Mass/Vol] 123 mg/dL High 70-99 [facility] Comment on above: Performed By: #### L 300.3900, L300.4310, L500.4050, L100.0100 #### [facility] [address] [place], [address] Potassium [Moles/Vol] 4.5 mmol/L Normal 3.3-5.1 [facility] Comment on above: Performed By: #### L 300.3900, L300.4310, L500.4050, L100.0100 #### [facility] [address] [place], [address] Sodium [Moles/Vol] 139 mmol/L Normal 133-145 [facility] Comment on above: Performed By: #### L 300.3900, L300.4310, L500.4050, L100.0100 #### [facility] [address] [place], [address] T PROT 6.8 g/dL Normal 5.9-8.4 [facility] Comment on above: Performed By: #### L 300.3900, L300.4310, L500.4050, L100.0100 #### [facility] [address] [place], [address] Urea nitrogen [Mass/Vol] 28 mg/dL High 4-19 [facility] Comment on above: Performed By: #### L 300.3900, L300.4310, L500.4050, L100.0100 #### [facility] [place], [address] DRVVT confirmOrdered By: Ruddy Winkler on 09-22-2024 dRVVT actual/normal Coag (PPP) [Relative time] 1.4 ratio High 0.8-1.2 [facility] Dilute Venkata's viper venom timeOrdered By: Oscar Winkler on 09-22-2024 dRVVT Coag (PPP) [Time] 61.5 s High 0.0-47.0 [facility] dRVVT Coag (PPP) [Time] 59.8 s High 0.0-40.4 [facility] Eosinophil percentageOrdered By: Oscar Winkler on 09-22-2024 Eosinophils/100 WBC (Bld) 2.4 % 0-5 [facility] Erythrocyte distribution wid th ratioOrdered By: Oscar Winkler on 09-22-2024 Erythrocyte distribution width (RBC) [Ratio] 13.7 % 11.6-14.6 [facility] Erythrocyte distribution wid th standard deviationOrdered By: Oscar Winkler on 09-22-2024 Erythrocyte distribution width (RBC) [Ratio] 46.4 fl High 35.1-43.9 [facility] Glomerular filtration rate ( GFR) estimation/1.73 sq m using serum, plasma, or whole bOrdered By: Oscar Winkler on 09-22-2024 GFR/1.73 sq M.predicted among non-blacks MDRD (S/P/Bld) [Vol rate/Area] 50 mL/min/{1.73_m2} Low >60 [facility] Comment on above: mL/min/1.73m2 CKD-EP I Creatinine Equation (2020) Hematocrit Auto (Bld) [Volum e fraction]Ordered By: Oscar Winkler on 09-22-2024 Hematocrit (Bld) [Volume fraction] 42.3 % 40-54 [facility] Hemoglobin measurementOrdere d By: Oscar Winkler on 09-22-2024 Hemoglobin (Bld) [Mass/Vol] 14.6 g/dL 13.0-16.5 [facility] Immature granulocytes/100 WB C Auto (Bld)Ordered By: Oscar Winkler on 09-22-2024 Immature granulocytes/100 WBC (Bld) 0.300 % 0.0-0.9 [facility] Comment on above: IG% - Immature Granu locytes (promyelocytes, myelocytes and metamyelocytes) > 1% indicates that a LEFT SHIFT is Present. International normalized rat io (INR) calculationOrdered By: Oscar Winkler on 09-22-2024 INR Coag (Bld) [Relative time] 1.0 {INR} [facility] - Chemistry and C hemistry - challengeOrdered By: Oscar Winkler on 09-22-2024 AST [Catalytic activity/Vol] 26 U/L <38 [facility] MCV (mean corpuscular volume ) determinationOrdered By: Oscar Winkler on 09-22-2024 MCV (RBC) [Entitic vol] 92.8 fL 80-94 [facility] Mean corpuscular hemoglobin (MCH) determinationOrdered By: Oscar Winkler on 09-22-2024 MCH (RBC) [Entitic mass] 32.0 pg 27.0-32.0 [facility] Mean corpuscular hemoglobin concentration (MCHC) determinationOrdered By: Oscar Winkler on 09-22-2024 MCHC (RBC) [Mass/Vol] 34.5 g/dL 32-36 [facility] Mean platelet volume determi nationOrdered By: Oscar Winkler on 09-22-2024 Platelet mean volume (Bld) [Entitic vol] 10.8 fL 6.2-12.0 [facility] Monocyte percentageOrdered B y: Oscar Winkler on 09-22-2024 Monocytes/100 WBC (Bld) 8.1 % 0-10 [facility] Neutrophil percentageOrdered By: Oscar Winkler on 09-22-2024 Neutrophils/100 WBC (Bld) 62.8 % 47-70 [facility] Nucleated red blood cell per centageOrdered By: Oscar Winkler on 09-22-2024 Nucleated RBC/100 WBC (Bld) [Ratio] 0 % 0-5 [facility] Partial Thromboplast Timeon 09-22-2024 aPTT Coag (Bld) [Time] 53.8 s High 24.1-36.2 [facility] Comment on above: Performed By: #### L 300.3900, L300.4310, L500.4050, L100.0100 #### [facility] [address] [place], [address] Plasma lupus anticoagulant d etection by hexagonal phase phospholipid neutralizationOrdered By: Oscar Winkler on 09-22-2024 aPTT W excess hexagonal phase phospholipid Ql (PPP) 49 sec High 0-11 [facility] Platelet countOrdered By: Karla Winkler on 09-22-2024 Platelets (Bld) [#/Vol] 165 10*3/uL 150-450 [facility] Potassium measurement (mass/ volume)Ordered By: Oscar Winkler on 09-22-2024 Potassium (Unsp spec) [Mass/Vol] 4.5 mmol/L 3.3-5.1 [facility] Prothrombin Time w/INRon INR Coag (PPP) [Relative time] 1.0 {INR} Normal [facility] Comment on above: Performed By: #### L 300.3900, L300.4310, L500.4050, L100.0100 #### [facility] [address] [place], [address] PT Coag (PPP) [Time] 13.6 s Normal 11.7-14.9 [facility] Comment on above: Performed By: #### L 300.3900, L300.4310, L500.4050, L100.0100 #### [facility] [address] [place], [address] Prothrombin timeOrdered By: Oscar Winkler on 09-22-2024 PT Coag (PPP) [Time] 13.6 s 11.7-14.9 [facility] RBC Auto (Bld) [#/Vol]Ordere d By: Oscar Winkler on 09-22-2024 RBC (Bld) [#/Vol] 4.56 10*6/uL Low 4.6-6.2 [facility] Serum creatinine measurement (mass/volume)Ordered By: Oscar Winkler on 09-22-2024 Creatinine [Mass/Vol] 1.42 mg/dL High 0.70-1.20 [facility] Serum globulin measurementOr dered By: Oscar Winkler on 09-22-2024 Globulin (S) [Mass/Vol] 2.7 g/dL 2.2-4.2 [facility] Serum glucose measurement (m ass/volume)Ordered By: Oscar Winkler on 09-22-2024 Glucose [Mass/Vol] 123 mg/dL High 70-99 [facility] Serum or plasma alanine mills otransferase (ALT) measurementOrdered By: Oscar Winkler on 09-22-2024 ALT [Catalytic activity/Vol] 29 U/L <47 [facility] Serum or plasma albumin delisa urement (mass/volume)Ordered By: Oscar Winkler on 09-22-2024 Albumin [Mass/Vol] 4.1 g/dL 3.4-4.8 [facility] Serum or plasma albumin/glob ulin mass ratioOrdered By: Oscar Winkler on 09-22-2024 Albumin/Globulin [Mass ratio] 1.5 {ratio} 0.9-2.4 [facility] Serum or plasma alkaline edgardo sphatase measurementOrdered By: Oscar Winkler on 09-22-2024 ALP [Catalytic activity/Vol] 58 U/L 40-129 [facility] Serum or plasma calcium delisa urement (mass/volume)Ordered By: Oscar Winkler on 09-22-2024 Calcium [Mass/Vol] 9.3 mg/dL 7.6-11.0 [facility] Serum or plasma urea nitroge n measurement (mass/volume)Ordered By: sOcar Winkler on 09-22-2024 Urea nitrogen [Mass/Vol] 28 mg/dL High 4-19 [facility] Sodium levelOrdered By: Rubens Winkler on 09-22-2024 Sodium [Moles/Vol] 139 mmol/L 133-145 [facility] Thrombin timeOrdered By: Ruddy Winkler on 09-22-2024 Thrombin time Coag (PPP) [Time] 19.2 sec 0.0-23.0 [facility] Total proteinOrdered By: Ruddy Winkler on 09-22-2024 Protein [Mass/Vol] 6.8 g/dL 5.9-8.4 [facility] White blood cell (WBC) count Ordered By: Oscar Winkler on 09-22-2024 WBC (Bld) [#/Vol] 7.1 10*3/uL 4.4-11.0 [facility] Lactate dehydrogenase (LDH) measurementOrdered By: Oscar Winkler on 09-30-2023 LDH [Catalytic activity/Vol] 163 U/L 87-241 [facility] Absolute lymphocyte countOrd ered By: Dr. Mcrae on 07-31-2022 Lymphocytes Auto (Unsp spec) [#/Vol] 1.04 10*3/uL 0.83-4.51 [facility] Basophil percentageOrdered B y: Dr. Mcrae on 07-31-2022 Basophils/100 WBC (Bld) 0.1 % 0-1 [facility] Eosinophils/100 WBC (Bld) 1.2 % 0-5 [facility] Neutrophils (Bld) [#/Vol] 5.3 10*3/uL 2.0-7.7 [facility] Neutrophils/100 WBC (Bld) 70.8 % 47-70 [facility] WBC (Bld) [#/Vol] 7.5 10*3/uL 4.4-11.0 [facility] Blood erythrocytes count (nu mber/volume)Ordered By: Dr. Mcrae on 07-31-2022 RBC (Bld) [#/Vol] 4.36 10*6/uL 4.6-6.2 [facility] Blood hemoglobin measurement (mass/volume)Ordered By: Dr. Mcrae on 07-31-2022 Hemoglobin (Bld) [Mass/Vol] 13.9 g/dL 13.0-16.5 [facility] Blood lymphocytes/100 leukoc ytesOrdered By: Dr. Mcrae on 07-31-2022 Lymphocytes/100 WBC (Bld) 13.9 % 19-41 [facility] Blood monocytes/100 leukocyt esOrdered By: Dr. Mcrae on 07-31-2022 Monocytes/100 WBC (Bld) 13.6 % 0-10 [facility] Blood platelet mean volumeOr dered By: Dr. Mcrae on 07-31-2022 Platelet mean volume (Bld) [Entitic vol] 11.8 fL 6.2-12.0 [facility] COVID-19 virus antigen assay Ordered By: Dr. Mcrae on 07-31-2022 SARS-CoV-2 (COVID-19) Ag IA.rapid Ql (Resp) [facility] Determination of erythrocyte mean corpuscular volume (MCV)Ordered By: Dr. Mcrae on 07-31-2022 MCV (RBC) [Entitic vol] 95.9 fL 80-94 [facility] Hematocrit Auto (Bld) [Volum e fraction]Ordered By: Dr. Mcrae on 07-31-2022 Hematocrit (Bld) [Volume fraction] 41.8 % 40-54 [facility] - Hematology and Cell countsOrdered By: Dr. Mcrae on 07-31-2022 Erythrocyte distribution width (RBC) [Entitic vol] 47.3 fL 35.1-43.9 [facility] Erythrocyte distribution width (RBC) [Ratio] 13.4 % 11.6-14.6 [facility] Immature granulocytes/100 WBC (Bld) 0.400 % 0.0-0.9 [facility] Comment on above: IG% - Immature Granu locytes (promyelocytes, myelocytes and metamyelocytes) > 1% indicates that a LEFT SHIFT is Present. MCH (RBC) [Entitic mass] 31.9 pg 27.0-32.0 [facility] Nucleated RBC/100 WBC (Bld) [Ratio] 0 % 0-5 [facility] MCHC Auto (RBC) [Mass/Vol]Or dered By: Dr. Mcrae on 07-31-2022 MCHC (RBC) [Mass/Vol] 33.3 g/dL 32-36 [facility] Platelets bldOrdered By: Dr. Mcrae on 07-31-2022 Platelets (Bld) [#/Vol] 126 10*3/uL 150-450 [facility] Absolute lymphocyte counton 09-30-2021 Lymphocytes Auto (Unsp spec) [#/Vol] 1.54 10*3/uL 0.83-4.51 [facility] Work Phone: Basophil percentageon 2021 Basophils/100 WBC (Bld) 0.2 % 0-1 [facility] Work Phone: [phone] Bilirubin [Mass/Vol] 0.40 mg/dL 0.20-1.00 [facility] Work Phone: [phone] Comment on above: For patients on eltr ombopag therapy, use of Dimension [place] TBIL is not recommended. Chloride [Moles/Vol] 108 mmol/L 98-107 [facility] Work Phone: Eosinophils/100 WBC (Bld) 3.8 % 0-5 [facility] Work Phone: Glucose [Mass/Vol] 100 mg/dL 74-106 [facility] Work Phone: [phone] Comment on above: Fasting Glucose resu lt from 100 to 125 mg/dL suggests IMPAIRED HOMEOSTASIS per A.D.A. criteria. Neutrophils (Bld) [#/Vol] 2.4 10*3/uL 2.0-7.7 [facility] Work Phone: [phone] Neutrophils/100 WBC (Bld) 52.8 % 47-70 [facility] Work Phone: Potassium [Moles/Vol] 4.3 mmol/L 3.5-5.1 [facility] Work Phone: [phone] Protein [Mass/Vol] 7.2 g/dL 6.4-8.2 [facility] Work Phone: [phone] Sodium [Moles/Vol] 140 mmol/L 136-145 [facility] Work Phone: WBC (Bld) [#/Vol] 4.5 10*3/uL 4.4-11.0 [facility] Work Phone: Blood erythrocytes count (nu mber/volume)on 09-30-2021 RBC (Bld) [#/Vol] 4.61 10*6/uL 4.6-6.2 [facility] Work Phone: Blood hemoglobin measurement (mass/volume)on 09-30-2021 Hemoglobin (Bld) [Mass/Vol] 15.0 g/dL 13.0-16.5 [facility] Work Phone: Blood lymphocytes/100 leukoc yteson 09-30-2021 Lymphocytes/100 WBC (Bld) 34.3 % 19-41 [facility] Work Phone: Blood monocytes/100 leukocyt eson 09-30-2021 Monocytes/100 WBC (Bld) 8.7 % 0-10 [facility] Work Phone: Blood platelet mean volumeon 09-30-2021 Platelet mean volume (Bld) [Entitic vol] 10.4 fL 6.2-12.0 [facility] Work Phone: [phone] Determination of erythrocyte mean corpuscular volume (MCV)on 09-30-2021 MCV (RBC) [Entitic vol] 93.9 fL 80-94 [facility] Work Phone: Dilute Venkata's viper venom timeon 09-30-2021 dRVVT Coag (PPP) [Time] 74.2 s 0.0-47.0 [facility] Work Phone: Hematocrit Auto (Bld) [Volum e fraction]on 09-30-2021 Hematocrit (Bld) [Volume fraction] 43.3 % 40-54 [facility] Work Phone: INR in Blood by Coagulation assayon 09-30-2021 INR Coag (Bld) [Relative time] 1.0 {INR} [facility] Work Phone: [phone] Laboratory - Chemistry and C hemistry - challengeon 09-30-2021 ALP [Catalytic activity/Vol] 50 U/L 45-117 [facility] Work Phone: ALT [Catalytic activity/Vol] 23 U/L 16-61 [facility] Work Phone: CO2 [Moles/Vol] 26.0 mmol/L 21.0-32.0 [facility] Work Phone: Globulin (S) [Mass/Vol] 3.7 g/dL 2.2-4.2 [facility] Work Phone: Urea nitrogen/Creatinine [Mass ratio] 19.6 mg/mg 10-20 [facility] Work Phone: Laboratory - Coagulationon 0 09-30-2021 aPTT Coag (Bld) [Time] 65.7 s 24.1-36.2 [facility] Work Phone: PT Coag (PPP) [Time] 13.2 s 11.7-14.9 [facility] Work Phone: Laboratory - Hematology and Cell countson 09-30-2021 Erythrocyte distribution width (RBC) [Entitic vol] 45.0 fL 35.1-43.9 [facility] Work Phone: Erythrocyte distribution width (RBC) [Ratio] 13.2 % 11.6-14.6 [facility] Work Phone: Immature granulocytes/100 WBC (Bld) 0.200 % 0.0-0.9 [facility] Work Phone: Comment on above: IG% - Immature Granu locytes (promyelocytes, myelocytes and metamyelocytes) > 1% indicates that a LEFT SHIFT is Present. MCH (RBC) [Entitic mass] 32.5 pg 27.0-32.0 [facility] Work Phone: Nucleated RBC/100 WBC (Bld) [Ratio] 0 % 0-5 [facility] Work Phone: MCHC Auto (RBC) [Mass/Vol]on 09-30-2021 MCHC (RBC) [Mass/Vol] 34.6 g/dL 32-36 [facility] Work Phone: No Panel Informationon 09-30 Estimated Creatinine Clearance Calc 57.03 ml/min [facility] Work Phone: Estimated GFR (MDRD) Amer 82 mL/min >60 [facility] Work Phone: Comment on above: GFR Calc Estimated GFR (MDRD) Non-Af Amer 67 mL/min >60 [facility] Work Phone: Comment on above: Non- GFR Calc Hexagonal Phase Phospholipid 24 sec 0-11 [facility] Work Phone: [phone] Platelets bldon 09-30-2021 Platelets (Bld) [#/Vol] 170 10*3/uL 150-450 [facility] Work Phone: [phone] Serum or plasma albumin delisa urement (mass/volume)on 09-30-2021 Albumin [Mass/Vol] 3.5 g/dL 3.2-5.0 [facility] Work Phone: [phone] Serum or plasma albumin/glob ulin mass ratioon 09-30-2021 Albumin/Globulin [Mass ratio] 0.9 {ratio} 0.9-2.4 [facility] Work Phone: [phone] Serum or plasma calcium delisa urement (mass/volume)on 09-30-2021 Calcium [Mass/Vol] 8.7 mg/dL 8.5-10.1 [facility] Work Phone: Serum or plasma creatinine m easurement (mass/volume)on 09-30-2021 Creatinine [Mass/Vol] 1.12 mg/dL 0.70-1.30 [facility] Work Phone: Comment on above: The validity of the calculated GFR & GFRAA in patients over 70 years has not been determined. Clinical correlation is essential. Serum or plasma urea nitroge n measurement (mass/volume)on 09-30-2021 Urea nitrogen [Mass/Vol] 22 mg/dL 7-18 [facility] Work Phone: Thin prep Papanicolaou smear with manual screeningon 09-30-2021 Thin prep Papanicolaou smear with manual screening 16 U/L 15-37 [facility] Work Phone: [phone] Thin prep Papanicolaou smear with manual screening 6 5-15 [facility] Work Phone: [phone] Thin prep Papanicolaou smear with manual screening 170 U/L 87-241 [facility] Work Phone: Thin prep Papanicolaou smear with manual screening 80.4 sec 0.0-47.6 [facility] Work Phone: Thin prep Papanicolaou smear with manual screening 1.39 Ratio 0.00-1.34 [facility] Work Phone: Thin prep Papanicolaou smear with manual screening 87.4 sec 0.0-51.9 [facility] Work Phone: Thin prep Papanicolaou smear with manual screening 83.3 sec 0.0-48.9 [facility] Work Phone: Thin prep Papanicolaou smear with manual screening Comment: . [facility] Work Phone: Comment on above: Results are consiste nt with the presence of a lupus anticoagulant. However,the dPT is markedly extended, as can be seen in patients receiving oralanticoagulant therapy (OAT). In general, OAT can reduce the accuracy oflupus anticoagulant testing and results obtain for patients receiving OATshould be interpreted with caution.As only persistent lupus anticoagulant (LA) positivity meets laboratorydiagnostic criteria for antiphospholipid syndrome, repeat testing in 12 ormore weeks is recommended, ideally in the absence of anticoagulant therapy.Important Note: The results of LA testing are not valid for patientsreceiving anticoagulant therapy. This treatment does not, however,interfere with anticardiolipin and beta-2 glycoprotein 1 antibody testing.Performed at: [address] [id number] Director: Kim Brito MD, Phone: [phone] Thrombin time in platelet po or plasmaon 09-30-2021 Thrombin time Coag (PPP) [Time] 18.4 sec 0.0-23.0 [facility] Work Phone: Basophil percentageon 2020 Cholesterol [Mass/Vol] 232 mg/dL High <200 [facility] Comment on above: <200 mg/dL Desirable 200-240 mg/dL Borderline >240 mg/dL High Risk Triglyceride [Mass/Vol] 220 mg/dL High <199 [facility] Comment on above: The drugs N-Acetylcy steine and Metamizole may falsely depress this assay.Serum Triglycerides Reference Interval Normal <150 mg/dL Borderline high 150 - 199 mg/dL High 200 - 499 mg/dL Very High > or = 500 mg/dL No Panel Informationon 10-03 Prostate Specific Antigen Screen 0.55 ng/mL 0.00-4.00 [facility] Comment on above: This test was perfor med using the TPSA assay method for the[employer] chemistry system. Values obtained with differentassay methods cannot be used interchangably.When changing PSA assays in the course of monitoring apatient, additional sequential testing should be carriedout to confirm baseline values. Serum or plasma cholesterol in HDL measurement (mass/volume)on 10-03-2020 Cholesterol in HDL [Mass/Vol] 36 mg/dL Low >40 [facility] Comment on above: The drugs N-Acetylcy steine and Metamizole may falsely depress this assay. Reference Range HDL <40 mg/dL Low HDL Cholesterol HDL >or= 60 mg/dL High HDL Cholesterol Serum or plasma cholesterol in VLDL measurement (mass/volume)on 10-03-2020 Cholesterol in VLDL [Mass/Vol] 44 mg/dL High 5-40 [facility] Serum or plasma low density lipoprotein (LDL) cholesterol measurement (mass/volume)on 10-03-2020 Cholesterol in LDL [Mass/Vol] 152 mg/dL High 0-130 [facility] - Chemistry and C hemistry - challengeon 10-12-2019 Cobalamin (Vitamin B12) [Mass/Vol] 251 pg/mL 211-911 [facility] Erythrocyte sedimentation ra shantelle 03-31-2019 ESR (Bld) [Velocity] 29 mm/h High 0-20 [facility] Hemoglobin in reticulocytes (mass per reticulocyte)on 03-31-2019 Hemoglobin (Reticulocytes) [Entitic mass] 38.1 pg High 30-35 [facility] Iron measurement (mass/mass) on 03-31-2019 Iron (Unsp spec) [Mass/Mass] 107 ug/dL 65-175 [facility] - Chemistry and C hemistry - challengeon 03-31-2019 T4 [Mass/Vol] 8.4 ug/dL 4.5-12.1 [facility] No Panel Informationon 03-31 Addendum Document Comment . [facility] Comment on above: Protein electrophore sis scan will follow via computer,mail, or branch services manager delivery.Performed at: [address], [place], [place] [id number] Director: Kim Brito MD, Phone: [phone] at: [facility] [address] [id number] Director: Josiah Patiño PhD, Phone: [phone] Hteqx-5-Gijyedszr (ISAMAR) 0.6 g/dL 0.4-1.0 [facility] Beta-Globulins (ISAMAR) 1.0 g/dL 0.7-1.3 [facility] D-Dimer Quantitative (PE/DVT) 0.73 FEU/ug/m High 0.27-0.49 [facility] Comment on above: D-Dimer ELEVATED (>0 .49): Additional studies and clinicalassessments are indicated to conclude diagnosis of:Deep Vein Thrombosis (DVT) or Pulmonary Embolism (PE)CRITICAL VALUE VERIFIED. CALLED TO NAEEM RN03/31/19 0944 Shannen Grayson.RESULTS READ BACK BY NAEEM . Fibrinogen 382 mg/dl 203-444 [facility] Folate 16.00 ng/mL 3.1-55.4 [facility] Free [place] Light Chains, Quant 27.5 mg/L High 3.3-19.4 [facility] Free [place]/Lambda Light Chain Ratio 1.94 High 0.26-1.65 [facility] Comment on above: Performed at: [employer] [address] [id number] Director: Josiah Patiño PhD, Phone: [phone] Free Lambda Light Chains, Quant 14.2 mg/L 5.7-26.3 [facility] Immature Reticulocyte Fraction 5.40 % 3.00-15.90 [facility] Immunofixation Screen Comment . [facility] Comment on above: No monoclonality det ected. Miscellaneous Test See comment [facility] Comment on above: TEST RESULT UNITS RE F INTERVALAbn PTT/APTT Reflexive PanelThrombin Time 16.7 sec Reference Range: 0.0 - 23.0Prothrombin Time 11.4 sec Reference Range: 18 years and older: 9.6 - 11.5INR 1.1 ratio Reference Range: 18 years and older: 0.9 - 1.1APTT 38.8 High secThis test has not been validated for monitoringunfractionated heparin therapy. aPTT-based therapeuticranges for unfractionated heparin therapy have not beenestablished. Consider ordering Heparin anti-Xa(unfractionated). Reference Range: 18 years and older: 22.9 - 30.2DRVVT Screen Seconds 77.2 High sec Reference Range: <= 47.0DRVVT Confirm Seconds 38.4 secDRVVT Ratio 1.9 High ratioTesting while the patient is on anticoagulant therapy,including warfarin, dabigatran, or a direct Xa inhibitor maycause a false positive result. Reference Range: 0.8 - 1.2Pathologist InterpretationWritten pathologist interpretation is provided for theassays performed at [facility] only. InterpretiveSynopsis:A lupus anticoagulant is detected. This interpretation ismade based on ISTH guidelines for LA diagnosis (J ThrombHaemost. 2009; 7: 1737-40). As only persistent LA meetslaboratory diagnostic criteria for antiphospholipidsyndrome, repeat testing in 12 or more weeks isrecommended, ideally in the absence of anticoagulanttherapy. If confirmed on repeat analysis a lupusanticoagulant is likely the cause of the elevated aPTT,although anicoagulant therapy cannot be excluded. Ifantiphospholipid syndrome is suspected, consider evaluatingaCL and B2GP1 IgG and IgM, if not already performed.2. The factor VIII and IX activities showed likelyinterference due to the lupus anticoagulant in the sample.Testing with a lupus anticoagulant-insensitive reagentyielded a normal factor XI activity and slighlty low factorVIII activity. A slightly low factor VIII activity in amale may occur with von Willebrand disease or in mildhemophilia A. Factor VIII may decrease spuriously ifsamples are handled poorly. Consider repeat analysis on anew plasma sample to confirm this abnormal result andperforming von Willebrand factor antigen and activity,depending on clinical scenario.Please contact [facility] if furtherclarification is needed. Jaxson Martinez M.D. [id number] VIII Activity % No valid result obtained.Factor activity using the standard, lupus-sensitive reagentdemonstrated possible interference from the lupusanticoagulant identified in the sample. Therefore, thefactor activity was performed using a lupus-insensitivereagent, resulting in a factor activity of 61% (refint:77-184%).Factor IX Activity 73 % Reference Range: 17 years and older: 60 - 177Factor XI Activity % No valid result obtained.Factor activity using the standard, lupus-sensitive reagentdemonstrated possible interference from the lupusanticoagulant identified in the sample. Therefore, thefactor activity was performed using a lupus-insensitivereagent, resulting in a factor activity of 94% (refint:60-150%).Hexagonal Phospholipid Neutral 51 High sec This value is POSITIVE.This is a qualitative assay and is therefore reported aspositive for lupus anticoagulant or negative. Testing whilethe patient is on anticoagulant therapy, including heparinor dabigatran, may cause a false positive result. Thequantitative value is provided as an aid in diagnosis. Reference Range: 0 - 11APTT 1:1 Saline 39.6 sec TESTING PERFORMED AT [facility]. ORIGINAL REPORT ON FILE IN LAB CONTAINS ADDITIONAL TEST SITE INFORMATION. Reticulocyte Count 0.82 % 0.5-1.5 [facility] Thyroid Stimulating Hormone (TSH) 1.34 uIU/mL 0.358-3.74 [facility] Total Iron Binding Capacity 258 ug/dL 250-450 [facility] Protein electrophoresis pane callie 03-31-2019 Protein [Mass/Vol] 6.2 g/dL 6.0-8.5 [facility] Serum [id number] measu rement by electrophoresison 03-31-2019 Alpha 1 globulin Elph [Mass/Vol] 0.2 g/dL 0.0-0.4 [facility] Serum or plasma IgA measurem ent (mass/volume)on 03-31-2019 IgA [Mass/Vol] 183 mg/dL 61-437 [facility] Serum or plasma IgG measurem ent (mass/volume)on 03-31-2019 IgG [Mass/Vol] 1058 mg/dL 700-1600 [facility] Serum or plasma IgM measurem ent (mass/volume)on 03-31-2019 IgM [Mass/Vol] 120 mg/dL 15-143 [facility] Serum or plasma albumin delisa urement (moles/volume)on 03-31-2019 Albumin [Moles/Vol] 3.3 g/dL 2.9-4.4 [facility] Serum or plasma ferritin imer surement (mass/volume)on 03-31-2019 Ferritin [Mass/Vol] 504 ng/mL High 26-388 [facility] Serum or plasma gamma globul in measurement by electrophoresis (mass/volume)on 03-31-2019 Gamma globulin Elph [Mass/Vol] 1.1 g/dL 0.4-1.8 [facility] Serum or plasma iron saturat ion measurement (mass fraction)on 03-31-2019 Iron saturation [Mass fraction] 41.5 % 15.0-55.0 [facility] Serum or plasma uric acid me asurement (mass/volume)on 03-31-2019 Urate [Mass/Vol] 6.2 mg/dL 3.5-7.2 [facility] Comment on above: The drugs N-Acetylcy steine and Metamizole may falsely depress this assay. Thin prep Papanicolaou smear with manual screeningon 03-31-2019 Thin prep Papanicolaou smear with manual screening See comment [facility] Work Phone: Comment on above: NOT OBSERVED Thin prep Papanicolaou smear with manual screening 1.2 0.7-1.7 [facility] Work Phone: Thrombin time in platelet po or plasmaon 03-31-2019 Thrombin time Coag (PPP) [Time] Not Reportable [facility] CNOVon 08-10-2018 CNOV Office Visit (ARMANI VOGEL) -- KRYSTIAN CHILD ([id number]) 1945 M NFR Date Time Provider Department 08/10/18 10:30 AM ORLANDO JACOBS During your visit today, we recorded the following information about you: Pulse Respiration Blood pressure Weight 72/minute 20/minute 138/64 101.6 kg Height 1.778 m Orlando Jacobs APRN.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 CLAIMS AIDE 08/10/2018 11:52 AM Signed HPI:Krystian Child is a 72 year old male that returns to the office today for 1 month post-discharge follow up for Angina and SOB s/p CABGX4 (tyler-lad; svg-diag, om, rca; evh) performed on 07/01/2018. His post-operative course was uncomplicated. He was discharged on 07/06/2018. Today, Krystian Child, reports he is doing quite well at home. Ambulating, preparing for cardiac rehabilitation. Pain: Denies CV: (Dizzy, palpitations, BP, Edema) blood pressure has been well controlled denies palpitations and dizziness edema SOB/BROWN: Denies, positive cough productive of clear sputum Fever: Denies Diet: Normal Bowel: Regular Activity: Ready for cardiac rehabilitation C/O: None Cardiology F/U: Met with he already Cardiac Rehab: Starts next week Subjective: Current Outpatient Medications: acetaminophen (TYLENOL) 325 mg tablet Take 2 tablets by mouth every 6 hours as needed. atorvastatin (LIPITOR) 40 mg tablet Take 1 tablet by mouth daily at bedtime. metoprolol tartrate, short acting, (LOPRESSOR) 50 mg tablet Take 1 tablet by mouth every 12 hours. aspirin, enteric coated (ASPIRIN, ENTERIC COATED) 81 mg EC tablet Take 2 tablets by mouth once daily. Take 2 tablets for 1 month, then decrease to 1 tablet. furosemide (LASIX) 40 mg tablet Take 1 tablet by mouth once daily. Take for 5 days, continue to monitor weight and leg swelling. polyethylene glycol 3350 (MIRALAX, GLYCOLAX) 17 gram packet Take 1 Packet by mouth once daily as needed (constipation). (Patient not taking: Reported on 08/10/2018 ) senna-docusate (SENNA-S) 8.6-50 mg per tablet Take 1 tablet by mouth twice daily. Take daily while taking narcotic pain medication (Patient not taking: Reported on 08/10/2018 ) No current facility-administered medications for this visit. Patient has no known allergies. 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 right mid neck lesion FAMILY HISTORY Problem Relation Age of Onset - Colon Cancer Father - Heart Brother - Heart Brother - Heart Mother - Diabetes Mother - Hypertension Mother - Stroke Mother - Stroke Brother - Alcohol/Drug Brother Social History Tobacco Use - Smoking status: Former Smoker Last attempt to quit: 09/30/1979 Years since quittin.8 - Smokeless tobacco: Never Used Substance Use Topics - Alcohol use: No - Drug use: No Review of Systems Constitutional: Negative for chills, fever, malaise/fatigue and weight loss (Weight has been stable). HENT: Negative for sore throat. Respiratory: Negative for cough, sputum production, shortness of breath and wheezing. Cardiovascular: Negative for chest pain, palpitations, orthopnea, claudication, leg swelling and PND. Gastrointestinal: Negative for abdominal pain, blood in stool, constipation, diarrhea, melena, nausea and vomiting. Genitourinary: Negative for dysuria. Musculoskeletal: Negative for falls and joint pain. Skin: No new lesions Neurological: Negative for dizziness, tingling, sensory change, focal weakness, weakness and headaches. Endo/Heme/Allergies: Does not bruise/bleed easily. Psychiatric/Behavioral: Negative for depression. The patient does not have insomnia. Objective: One month post- op Chest X-ray is done and reviewed today. IMPRESSION: Suspect atelectasis within the left midlung laterally. Residual left basilar atelectasis persists. Lungs are otherwise clear. Physical Examination: Vitals:BP 138/64 Pulse 72 Resp 20 Ht 5' 10 (1.78m) Wt 224 lb (101.6kg) SpO2 96% BMI 32.14 kg/(m2). BP w/Orthostatic Vitals Date and Time Orthostatic BP Orthostatic Pulse BP Pulse BP Position BP Site BP Cuff Size 08/10/18 1048 -- -- 138/64 72 -- Left Arm -- Peak Flow Date and Time PF Resp 08/10/18 1048 -- 20 Last 2 Encounter Wt Readings: Date: Wt: 08/10/2018 224 lb (101.6 kg) 07/13/2018 225 lb (102.1 kg) Physical Exam Constitutional: He is oriented to person, place, and time and well-developed, well-nourished, and in no distress. HENT: Head: Normocephalic. Eyes: Pupils are equal, round, and reactive to light. Cardiovascular: Normal rate, regular rhythm, S1 normal, S2 normal and intact distal pulses. No murmur heard. Pulmonary/Chest: Effort normal and breath sounds normal. Abdominal: Soft. Normal appearance and bowel sounds are normal. Musculoskeletal: Normal range of motion. He exhibits edema (Nonpitting LLE). Neurological: He is alert and oriented to person, place, and time. Gait normal. Skin: Skin is warm and intact. Midsternal incision clean dry, well approximated, no redness or drainage-healed Sternum is stable Ct Sites healed SVG site clean dry, no redness, drainage, or hematoma-healed Psychiatric: Mood and affect normal. Assessment and Plan: ASSESSMENT/PLAN: 1. S/P CABG x 4 - ICD9: V45.81, ICD10: Z95.1 (primary diagnosis) -Continue medical management with metoprolol 50 twice a day, aspirin 81 mg daily, atorvastatin -May begin cardiac rehabilitation -May drive -Follow-up with Dr. Stubbs scheduled 2. Wound cellulitis after surgery - ICD9: 998.59, ICD10: T81.49XA Resolved Orlando Jacobs APRN.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 CLAIMS AIDE In summary, Patient is doing exceedingly well overall after his M CABG surgery, with no major complaints. Patient is released to drive, work. Patient should start cardiac rehab from this point on. he should follow up with his senior pastor and PCP as scheduled, and only needs to be seen here on a as needed basis. Thanks. Electronically signed by Orlando Jacobs APRN.CNP on August 10, 2018, 10:53 AM Orlando Jacobs APRN.CNP 08/10/2018 10:56 AM Signed - You may drive! - Please begin cardiac rehab. If they have not contacted you, please call them: - Weight bearing restriction remains: No lifting more than 10 lbs. You may begin to gradually increase the amount of weight bearing. Cardiac rehab will help with this. - Please see your senior pastor regularly. They will take over medication management. - Please feel free to call us if you have any post-operative concerns. Thank you for coming to see me today!! Orlando Jacobs APRN.CNP Referring Provider: SELF [[id number]] Allergies As of Date: 08/10/2018 (No Known Allergies) Date Reviewed: 08/10/2018 Reviewed by: Carley Pulido - Fully Assessed Reason for Visit: Post Op [174] Cmt: CABG x 4 JL 07/01/18 Primary Visit Diagnosis:S/P CABG x 4 [Z95.1] Other Visit Diagnosis:Wound cellulitis after surgery [T81.49XA] Prescriptions as of 08/10/2018 Sig: ACETAMINOPHEN 325 MG TABLET Take 2 tablets by mouth every* ATORVASTATIN 40 MG TABLET Take 1 tablet by mouth daily * METOPROLOL TARTRATE 50 MG TAB* Take 1 tablet by mouth every * ASPIRIN 81 MG TABLET,DELAYED * Take 2 tablets by mouth once * Problem List As Of Date 08/10/2018 Noted Resolved GASTROINTEST HEMORR NOS [K92.2] INT HEMORRHOID W/O COMPL [K64.8] Other dyspnea and respiratory abnormality [R06.* 02/26/2016 CHRONIC RHINITIS [J31.0] HYPERLIPIDEMIA NEC/NOS [E78.5] INVALID FOR* HYPERTENSION NOS [I10] INVALID FOR* MITRAL VALVE DISORDER [I05.9] SKIN CARCINOMA NECK [173.4] INVALID FOR* PERS HX SKIN MALIGNANCY NEC [Z85.828] INVALID FOR* VOCAL CORD DISEASE NEC [J38.3] INVALID FOR* ESOPHAGEAL REFLUX [K21.9] INVALID FOR* CAD (coronary artery disease) [I25.10] INVALID FOR* Obesity, Class I, BMI 30-34.9 [E66.9] INVALID FOR* S/P CABG x 4 [Z95.1] INVALID FOR* Other instructions from your clinician: - You may drive! - Please begin cardiac rehab. If they have not contacted you, please call them: - Weight bearing restriction remains: No lifting more than 10 lbs. You may begin to gradually increase the amount of weight bearing. Cardiac rehab will help with this. - Please see your senior pastor regularly. They will take over medication management. - Please feel free to call us if you have any post-operative concerns. Thank you for coming to see me today!! Orlando Jacobs APRN.REHAN Medications Discontinued During This Encounter furosemide (LASIX) 40 mg tablet 30 t* 0 07/08/2018 08/10/2018 Route: ORAL Sig: Take 1 tablet by mouth once daily. Take for 5 days, continue to monitor weight and leg swelling. Disc: Course of therapy completed senna-docusate (SENNA-S) 8.6-50 mg p* 60 t* 1 07/06/2018 08/10/2018 Route: ORAL Sig: Take 1 tablet by mouth twice daily. Take daily while taking narcotic pain medication Patient not taking: Reported on 08/10/2018 Disc: Course of therapy completed polyethylene glycol 3350 (MIRALAX, G* 15 P* 1 07/06/2018 08/10/2018 Route: ORAL Sig: Take 1 Packet by mouth once daily as needed (constipation). Patient not taking: Reported on 08/10/2018 Disc: Course of therapy completed Letter Text Encounter Status:Closed by ORLANDO JACOBS CNP on 08/10/18 [facility] PROGRESSon 08-10-2018 Protein mass conc HNO ID: [id number] Author: Orlando Jacobs Service: ? Author Type: Nurse Practitioner Type: Progress Notes Filed: 08/10/2018 11:52 AM Note Text: HPI:Krystian Child is a 72 year old male that returns to the office today for 1 month post-discharge follow up for Angina and SOB s/p CABGX4 (tyler-lad; svg-diag, om, rca; evh) performed on 07/01/2018. His post-operative course was uncomplicated. He was discharged on 07/06/2018. Today, Krystian Child, reports he is doing quite well at home. Ambulating, preparing for cardiac rehabilitation. Pain: Denies CV: (Dizzy, palpitations, BP, Edema) blood pressure has been well controlled denies palpitations and dizziness edema SOB/BROWN: Denies, positive cough productive of clear sputum Fever: Denies Diet: Normal Bowel: Regular Activity: Ready for cardiac rehabilitation C/O: None Cardiology F/U: Met with he already Cardiac Rehab: Starts next week Subjective: Current Outpatient Medications: acetaminophen (TYLENOL) 325 mg tablet Take 2 tablets by mouth every 6 hours as needed. atorvastatin (LIPITOR) 40 mg tablet Take 1 tablet by mouth daily at bedtime. metoprolol tartrate, short acting, (LOPRESSOR) 50 mg tablet Take 1 tablet by mouth every 12 hours. aspirin, enteric coated (ASPIRIN, ENTERIC COATED) 81 mg EC tablet Take 2 tablets by mouth once daily. Take 2 tablets for 1 month, then decrease to 1 tablet. furosemide (LASIX) 40 mg tablet Take 1 tablet by mouth once daily. Take for 5 days, continue to monitor weight and leg swelling. polyethylene glycol 3350 (MIRALAX, GLYCOLAX) 17 gram packet Take 1 Packet by mouth once daily as needed (constipation). (Patient not taking: Reported on 08/10/2018 ) senna-docusate (SENNA-S) 8.6-50 mg per tablet Take 1 tablet by mouth twice daily. Take daily while taking narcotic pain medication (Patient not taking: Reported on 08/10/2018 ) No current facility-administered medications for this visit. Patient has no known allergies. 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 right mid neck lesion FAMILY HISTORY Problem Relation Age of Onset - Colon Cancer Father - Heart Brother - Heart Brother - Heart Mother - Diabetes Mother - Hypertension Mother - Stroke Mother - Stroke Brother - Alcohol/Drug Brother Social History Tobacco Use - Smoking status: Former Smoker Last attempt to quit: 09/30/1979 Years since quittin.8 - Smokeless tobacco: Never Used Substance Use Topics - Alcohol use: No - Drug use: No Review of Systems Constitutional: Negative for chills, fever, malaise/fatigue and weight loss (Weight has been stable). HENT: Negative for sore throat. Respiratory: Negative for cough, sputum production, shortness of breath and wheezing. Cardiovascular: Negative for chest pain, palpitations, orthopnea, claudication, leg swelling and PND. Gastrointestinal: Negative for abdominal pain, blood in stool, constipation, diarrhea, melena, nausea and vomiting. Genitourinary: Negative for dysuria. Musculoskeletal: Negative for falls and joint pain. Skin: No new lesions Neurological: Negative for dizziness, tingling, sensory change, focal weakness, weakness and headaches. Endo/Heme/Allergies: Does not bruise/bleed easily. Psychiatric/Behavioral: Negative for depression. The patient does not have insomnia. Objective: One month post- op Chest X-ray is done and reviewed today. IMPRESSION: Suspect atelectasis within the left midlung laterally. Residual left basilar atelectasis persists. Lungs are otherwise clear. Physical Examination: Vitals:BP 138/64 Pulse 72 Resp 20 Ht 5' 10 (1.78m) Wt 224 lb (101.6kg) SpO2 96% BMI 32.14 kg/(m2). BP w/Orthostatic Vitals Date and Time Orthostatic BP Orthostatic Pulse BP Pulse BP Position BP Site BP Cuff Size 08/10/18 1048 -- -- 138/64 72 -- Left Arm -- Peak Flow Date and Time PF Resp 08/10/18 1048 -- 20 Last 2 Encounter Wt Readings: Date: Wt: 08/10/2018 224 lb (101.6 kg) 07/13/2018 225 lb (102.1 kg) Physical Exam Constitutional: He is oriented to person, place, and time and well-developed, well-nourished, and in no distress. HENT: Head: Normocephalic. Eyes: Pupils are equal, round, and reactive to light. Cardiovascular: Normal rate, regular rhythm, S1 normal, S2 normal and intact distal pulses. No murmur heard. Pulmonary/Chest: Effort normal and breath sounds normal. Abdominal: Soft. Normal appearance and bowel sounds are normal. Musculoskeletal: Normal range of motion. He exhibits edema (Nonpitting LLE). Neurological: He is alert and oriented to person, place, and time. Gait normal. Skin: Skin is warm and intact. Midsternal incision clean dry, well approximated, no redness or drainage-healed Sternum is stable Ct Sites healed SVG site clean dry, no redness, drainage, or hematoma-healed Psychiatric: Mood and affect normal. Assessment and Plan: ASSESSMENT/PLAN: 1. S/P CABG x 4 - ICD9: V45.81, ICD10: Z95.1 (primary diagnosis) -Continue medical management with metoprolol 50 twice a day, aspirin 81 mg daily, atorvastatin -May begin cardiac rehabilitation -May drive -Follow-up with Dr. Stubbs scheduled 2. Wound cellulitis after surgery - ICD9: 998.59, ICD10: T81.49XA Resolved Orlando Jacobs APRN.CNP In summary, Patient is doing exceedingly well overall after his M CABG surgery, with no major complaints. Patient is released to drive, work. Patient should start cardiac rehab from this point on. he should follow up with his senior pastor and PCP as scheduled, and only needs to be seen here on a as needed basis. Thanks. Electronically signed by Orlando Jacobs APRN.CNP on August 10, 2018, 10:53 AM Normal [facility] CNOVon 07-13-2018 CNOV Office Visit (ARMANI VOGEL) -- KRYSTIAN CHILD ([id number]) 1945 M NFR Date Time Provider Department 07/13/18 10:00 AM ORLANDO JACOBS During your visit today, we recorded the following information about you: Pulse Respiration Blood pressure Weight 80/minute 16/minute 122/60 102.1 kg Height 1.791 m Orlando Jacobs APRN.CNP 07/13/2018 11:16 AM Signed HPI:Krystian Child is a 72 year old male that returns to the office today for 1 week post-discharge follow up for Angina and SOB s/p CABGX4 (tyler-lad; svg-diag, om, rca; evh) performed on 07/01/2018. His post-operative course was uncomplicated. He was discharged on 07/06/2018. Today, Krystian Child, reports: he is eating better, pain is well controlled, but still not sleeping well Pain Well controlled with tylenol and occasional oxycodone CV (Dizzy, palpitations, BP, edema): LE edema and a single episode of weight gain. SOB/BROWN: Denies Fever: Denies Diet: improving Bowel: regular Activity: gradually increasing C/O: Not sleeping Subjective: Current Outpatient Prescriptions: furosemide (LASIX) 40 mg tablet Take 1 tablet by mouth once daily. Take for 5 days, continue to monitor weight and leg swelling. acetaminophen (TYLENOL) 325 mg tablet Take 2 tablets by mouth every 6 hours as needed. atorvastatin (LIPITOR) 40 mg tablet Take 1 tablet by mouth daily at bedtime. metoprolol tartrate, short acting, (LOPRESSOR) 50 mg tablet Take 1 tablet by mouth every 12 hours. polyethylene glycol 3350 (MIRALAX, GLYCOLAX) 17 gram packet Take 1 Packet by mouth once daily as needed (constipation). senna-docusate (SENNA-S) 8.6-50 mg per tablet Take 1 tablet by mouth twice daily. Take daily while taking narcotic pain medication aspirin, enteric coated (ASPIRIN, ENTERIC COATED) 81 mg EC tablet Take 2 tablets by mouth once daily. Take 2 tablets for 1 month, then decrease to 1 tablet. oxyCODONE IR (ROXICODONE) 5 mg immediate release tablet Take 1 tablet by mouth every 6 hours as needed for Pain for up to 7 days.Earliest Fill Date: 07/06/18 No current facility-administered medications for this visit. Patient has no known allergies. 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 right mid neck lesion FAMILY HISTORY Problem Relation Age of Onset - Colon Cancer Father - Heart Brother - Heart Brother - Heart Mother - Diabetes Mother - Hypertension Mother - Stroke Mother - Stroke Brother - Alcohol/Drug Brother Social History Substance Use Topics - Smoking status: Former Smoker Quit date: 09/30/1979 - Smokeless tobacco: Never Used - Alcohol use No Review of Systems Constitutional: Positive for weight loss (Expected Post op loss at baseline weight 220). Negative for chills, fever and malaise/fatigue. HENT: Negative for sore throat. Respiratory: Negative for cough, sputum production, shortness of breath and wheezing. Cardiovascular: Positive for leg swelling. Negative for chest pain, palpitations, orthopnea, claudication and PND. Gastrointestinal: Negative for abdominal pain, blood in stool, constipation, diarrhea, melena, nausea and vomiting. Genitourinary: Negative for dysuria. Musculoskeletal: Negative for falls and joint pain. Skin: No new lesions Neurological: Negative for dizziness, tingling, sensory change, focal weakness, weakness and headaches. Endo/Heme/Allergies: Does not bruise/bleed easily. Psychiatric/Behavioral: Negative for depression. The patient has insomnia. Objective: Physical Examination: Vitals:BP 122/60 Pulse 80 Resp 16 Ht 5' 10.5 (1.79m) Wt 225 lb (102.1kg) SpO2 99% BMI 31.82 kg/(m2). BP w/Orthostatic Vitals Date and Time Orthostatic BP Orthostatic Pulse BP Pulse BP Position BP Site BP Cuff Size 07/13/18947 -- -- 122/60 80 Sitting Left Arm -- Peak Flow Date and Time PF Resp 07/13/18947 -- 16 Last 2 Encounter Wt Readings: Date: Wt: 07/13/2018 225 lb (102.1 kg) (Reports weight at home was 220 lbs today - Baseline weight) 06/25/2018 232 lb 9.6 oz (105.5 kg) Physical Exam Constitutional: He is oriented to person, place, and time and well-developed, well-nourished, and in no distress. HENT: Head: Normocephalic. Eyes: Pupils are equal, round, and reactive to light. Cardiovascular: Normal rate, regular rhythm, S1 normal, S2 normal and intact distal pulses. No murmur heard. Pulmonary/Chest: Effort normal and breath sounds normal. Abdominal: Soft. Normal appearance and bowel sounds are normal. Musculoskeletal: Normal range of motion. He exhibits edema (2-3+ pitting on left and 1-2+ pitting on right). Neurological: He is alert and oriented to person, place, and time. Gait normal. Skin: Skin is warm and intact. Midsternal incision clean dry, well approximated, no redness or drainage Sternum is Stable Ct Sites Closed and healing SVG site clean dry, edematous, erythematous, calor and TTP Psychiatric: Mood and affect normal. Assessment and Plan: ASSESSMENT/PLAN: 1. S/P CABG x 4 - ICD9: V45.81, ICD10: Z95.1 (primary diagnosis) - Continue medical management with ASA 162, Metoprolol 50 BID and Atorvastatin 40 mg - Continue lasix 40 mg for LE edema - CEPHALEXIN 500 MG CAPSULE - XR CHEST 2V FRONTAL/LAT - CARDIAC REHAB II OUTPT ([place]) 2. Wound cellulitis after surgery - ICD9: 998.59, ICD10: T81.49XA - Reddened, tender left leg - CEPHALEXIN 500 MG CAPSULE x 7 days Orlando Jacobs, 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.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 CLAIMS AIDE In summary, Krystian Child is doing Fair overall after his MCABG surgery, with no major complaints. he should follow-up in this office in 3-4 weeks with Chest X-ray. Thanks. Electronically signed by Orlando Jacobs APRN.CNP on July 13, 2018, 10:21 AM Orlando Jacobs APRN.CNP 07/13/2018 10:48 AM Signed -Please follow-up with your primary care physician and your senior pastor in 4-6 weeks -Please return to cardiac surgery in 3-4 weeks with a chest x-ray done before the appointment -Restriction remain: No lifting more than 10 lbs and No driving. -Cardiac rehab has been consulted. You will be able to begin cardiac rehab after your next visit with us. [facility] . -Feel free to call us if you have questions or concerns Thank you for coming to see me today! Orlando Jacobs APRN.CNP Referring Provider: LIGIA MCRAE [[id number]] Allergies As of Date: 07/13/2018 (No Known Allergies) Date Reviewed: 07/13/2018 Reviewed by: Avril Yoder LPN - Fully Assessed Reason for Visit: Post Op [174] Cmt: 07/01/18 [facility] Primary Visit Diagnosis:S/P CABG x 4 [Z95.1] Other Visit Diagnosis:Wound cellulitis after surgery [T81.49XA] Order(s):cephALEXin (KEFLEX) 500 mg capsuleTake 1 capsule by mouth four times daily for 7 days.Disp: 28 capsuleRfl: 0 XR CHEST 2V FRONTAL/LAT [[id number]] Order #: [id number] FUTURE CARDIAC REHAB II OUTPT [place], [place]) [[id number]] Order #: [id number]: 1 Prescriptions as of 07/13/2018 Sig: FUROSEMIDE 40 MG TABLET Take 1 tablet by mouth once d* ACETAMINOPHEN 325 MG TABLET Take 2 tablets by mouth every* ATORVASTATIN 40 MG TABLET Take 1 tablet by mouth daily * METOPROLOL TARTRATE 50 MG TAB* Take 1 tablet by mouth every * POLYETHYLENE GLYCOL 3350 17 G* Take 1 Packet by mouth once d* SENNOSIDES 8.6 MG-DOCUSATE SO* Take 1 tablet by mouth twice * ASPIRIN 81 MG TABLET,DELAYED * Take 2 tablets by mouth once * OXYCODONE 5 MG TABLET Take 1 tablet by mouth every * CEPHALEXIN 500 MG CAPSULE Take 1 capsule by mouth four * Problem List As Of Date 07/13/2018 Noted Resolved GASTROINTEST HEMORR NOS [K92.2] INT HEMORRHOID W/O COMPL [K64.8] Other dyspnea and respiratory abnormality [R06.* 02/26/2016 CHRONIC RHINITIS [J31.0] HYPERLIPIDEMIA NEC/NOS [E78.5] INVALID FOR* HYPERTENSION NOS [I10] INVALID FOR* MITRAL VALVE DISORDER [I05.9] SKIN CARCINOMA NECK [173.4] INVALID FOR* PERS HX SKIN MALIGNANCY NEC [Z85.828] INVALID FOR* VOCAL CORD DISEASE NEC [J38.3] INVALID FOR* ESOPHAGEAL REFLUX [K21.9] INVALID FOR* CAD (coronary artery disease) [I25.10] INVALID FOR* Obesity, Class I, BMI 30-34.9 [E66.9] INVALID FOR* S/P CABG x 4 [Z95.1] INVALID FOR* Other instructions from your clinician: -Please follow-up with your primary care physician and your senior pastor in 4-6 weeks -Please return to cardiac surgery in 3-4 weeks with a chest x-ray done before the appointment -Restriction remain: No lifting more than 10 lbs and No driving. -Cardiac rehab has been consulted. You will be able to begin cardiac rehab after your next visit with us. [facility] . -Feel free to call us if you have questions or concerns Thank you for coming to see me today! Orlando Jacobs APRN.REHAN Prescriptions ordered this encounter Disp Refills Start End CEPHALEXIN 500 MG CAPSULE 28 c* 0 07/13/2018 07/20/2018 Route: ORAL Sig: Take 1 capsule by mouth four times daily for 7 days. Encounter Status:Closed by ORLANDO JACOBS CNP on 07/13/18 [facility] PROGRESSon 07-13-2018 Protein mass conc HNO ID: [id number] Author: Orlando Jacobs Service: (none) Author Type: Nurse Practitioner Type: Progress Notes Filed: 07/13/2018 11:16 AM Note Text: HPI:Krystian Child is a 72 year old male that returns to the office today for 1 week post-discharge follow up for Angina and SOB s/p CABGX4 (tyler-lad; svg-diag, om, rca; evh) performed on 07/01/2018. His post-operative course was uncomplicated. He was discharged on 07/06/2018. Today, Krystian Addison Chekomanuel, reports: he is eating better, pain is well controlled, but still not sleeping well Pain Well controlled with tylenol and occasional oxycodone CV (Dizzy, palpitations, BP, edema): LE edema and a single episode of weight gain. SOB/BROWN: Denies Fever: Denies Diet: improving Bowel: regular Activity: gradually increasing C/O: Not sleeping Subjective: Current Outpatient Prescriptions: furosemide (LASIX) 40 mg tablet Take 1 tablet by mouth once daily. Take for 5 days, continue to monitor weight and leg swelling. acetaminophen (TYLENOL) 325 mg tablet Take 2 tablets by mouth every 6 hours as needed. atorvastatin (LIPITOR) 40 mg tablet Take 1 tablet by mouth daily at bedtime. metoprolol tartrate, short acting, (LOPRESSOR) 50 mg tablet Take 1 tablet by mouth every 12 hours. polyethylene glycol 3350 (MIRALAX, GLYCOLAX) 17 gram packet Take 1 Packet by mouth once daily as needed (constipation). senna-docusate (SENNA-S) 8.6-50 mg per tablet Take 1 tablet by mouth twice daily. Take daily while taking narcotic pain medication aspirin, enteric coated (ASPIRIN, ENTERIC COATED) 81 mg EC tablet Take 2 tablets by mouth once daily. Take 2 tablets for 1 month, then decrease to 1 tablet. oxyCODONE IR (ROXICODONE) 5 mg immediate release tablet Take 1 tablet by mouth every 6 hours as needed for Pain for up to 7 days.Earliest Fill Date: 07/06/18 No current facility-administered medications for this visit. Patient has no known allergies. 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 right mid neck lesion FAMILY HISTORY Problem Relation Age of Onset - Colon Cancer Father - Heart Brother - Heart Brother - Heart Mother - Diabetes Mother - Hypertension Mother - Stroke Mother - Stroke Brother - Alcohol/Drug Brother Social History Substance Use Topics - Smoking status: Former Smoker Quit date: 09/30/1979 - Smokeless tobacco: Never Used - Alcohol use No Review of Systems Constitutional: Positive for weight loss (Expected Post op loss at baseline weight 220). Negative for chills, fever and malaise/fatigue. HENT: Negative for sore throat. Respiratory: Negative for cough, sputum production, shortness of breath and wheezing. Cardiovascular: Positive for leg swelling. Negative for chest pain, palpitations, orthopnea, claudication and PND. Gastrointestinal: Negative for abdominal pain, blood in stool, constipation, diarrhea, melena, nausea and vomiting. Genitourinary: Negative for dysuria. Musculoskeletal: Negative for falls and joint pain. Skin: No new lesions Neurological: Negative for dizziness, tingling, sensory change, focal weakness, weakness and headaches. Endo/Heme/Allergies: Does not bruise/bleed easily. Psychiatric/Behavioral: Negative for depression. The patient has insomnia. Objective: Physical Examination: Vitals:BP 122/60 Pulse 80 Resp 16 Ht 5' 10.5 (1.79m) Wt 225 lb (102.1kg) SpO2 99% BMI 31.82 kg/(m2). BP w/Orthostatic Vitals Date and Time Orthostatic BP Orthostatic Pulse BP Pulse BP Position BP Site BP Cuff Size 07/13/18947 -- -- 122/60 80 Sitting Left Arm -- Peak Flow Date and Time PF Resp 07/13/18947 -- 16 Last 2 Encounter Wt Readings: Date: Wt: 07/13/2018 225 lb (102.1 kg) (Reports weight at home was 220 lbs today - Baseline weight) 06/25/2018 232 lb 9.6 oz (105.5 kg) Physical Exam Constitutional: He is oriented to person, place, and time and well-developed, well-nourished, and in no distress. HENT: Head: Normocephalic. Eyes: Pupils are equal, round, and reactive to light. Cardiovascular: Normal rate, regular rhythm, S1 normal, S2 normal and intact distal pulses. No murmur heard. Pulmonary/Chest: Effort normal and breath sounds normal. Abdominal: Soft. Normal appearance and bowel sounds are normal. Musculoskeletal: Normal range of motion. He exhibits edema (2-3+ pitting on left and 1-2+ pitting on right). Neurological: He is alert and oriented to person, place, and time. Gait normal. Skin: Skin is warm and intact. Midsternal incision clean dry, well approximated, no redness or drainage Sternum is Stable Ct Sites Closed and healing SVG site clean dry, edematous, erythematous, calor and TTP Psychiatric: Mood and affect normal. Assessment and Plan: ASSESSMENT/PLAN: 1. S/P CABG x 4 - ICD9: V45.81, ICD10: Z95.1 (primary diagnosis) - Continue medical management with ASA 162, Metoprolol 50 BID and Atorvastatin 40 mg - Continue lasix 40 mg for LE edema - CEPHALEXIN 500 MG CAPSULE - XR CHEST 2V FRONTAL/LAT - CARDIAC REHAB II OUTPT ([place], [place]) 2. Wound cellulitis after surgery - ICD9: 998.59, ICD10: T81.49XA - Reddened, tender left leg - CEPHALEXIN 500 MG CAPSULE x 7 days Orlando Jacobs APRN.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 CLAIMS AIDE In summary, Krystian Addison Chekomanuel is doing Fair overall after his MCABG surgery, with no major complaints. he should follow-up in this office in 3-4 weeks with Chest X-ray. Thanks. Electronically signed by Orlando Jacobs APRN.REHAN on July 13, 2018, 10:21 AM [facility] CNPNon 07-08-2018 ANIA Telephone (ORPRATIMA) -- DANYELLKRYSTIAN Addison ([id number]) 1945 M NFR Date Time Provider Department 07/08/18 ORLANDO JACOBS During your visit today, we recorded the following information about you: Orlando Jacobs APRN.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 CLAIMS AIDE 07/08/2018 8:21 AM Signed Mrs Child called this am to report Mr Child had gained 5 lbs from yesterday to today and is exhibiting some edema. I have asked that they double up on the lasix. I am calling in an additional prescription for lasix for the next month. Orlando Jacobs APRN.CNP Allergies As of Date: 07/08/2018 (No Known Allergies) Date Reviewed: 07/05/2018 Reviewed by: Desi (Rn) MARIUSZ Mtz - Fully Assessed Reason for Visit: Symptoms [3640] Order(s):furosemide (LASIX) 40 mg tabletTake 1 tablet by mouth once daily. Take for 5 days, continue to monitor weight and leg swelling.Disp: 30 tabletRfl: 0 Prescriptions as of 07/08/2018 Sig: FUROSEMIDE 40 MG TABLET Take 1 tablet by mouth once d* ACETAMINOPHEN 325 MG TABLET Take 2 tablets by mouth every* ATORVASTATIN 40 MG TABLET Take 1 tablet by mouth daily * METOPROLOL TARTRATE 50 MG TAB* Take 1 tablet by mouth every * POLYETHYLENE GLYCOL 3350 17 G* Take 1 Packet by mouth once d* SENNOSIDES 8.6 MG-DOCUSATE SO* Take 1 tablet by mouth twice * ASPIRIN 81 MG TABLET,DELAYED * Take 2 tablets by mouth once * OXYCODONE 5 MG TABLET Take 1 tablet by mouth every * Problem List As Of Date 07/08/2018 Noted Resolved GASTROINTEST HEMORR NOS [K92.2] INT HEMORRHOID W/O COMPL [K64.8] Other dyspnea and respiratory abnormality [R06.* 02/26/2016 CHRONIC RHINITIS [J31.0] HYPERLIPIDEMIA NEC/NOS [E78.5] INVALID FOR* HYPERTENSION NOS [I10] INVALID FOR* MITRAL VALVE DISORDER [I05.9] SKIN CARCINOMA NECK [173.4] INVALID FOR* PERS HX SKIN MALIGNANCY NEC [Z85.828] INVALID FOR* VOCAL CORD DISEASE NEC [J38.3] INVALID FOR* ESOPHAGEAL REFLUX [K21.9] INVALID FOR* CAD (coronary artery disease) [I25.10] INVALID FOR* Obesity, Class I, BMI 30-34.9 [E66.9] INVALID FOR* S/P CABG x 4 [Z95.1] INVALID FOR* Prescriptions ordered this encounter Disp Refills Start End FUROSEMIDE 40 MG TABLET 30 t* 0 07/08/2018 08/07/2018 Route: ORAL Sig: Take 1 tablet by mouth once daily. Take for 5 days, continue to monitor weight and leg swelling. Medications Discontinued During This Encounter furosemide (LASIX) 40 mg tablet 5 ta* 0 07/07/2018 07/08/2018 Route: ORAL Sig: Take 1 tablet by mouth once daily for 5 days. Disc: Reason for discontinue is not on file. Encounter Status:Closed by ORLANDO JACOBS CNP on 07/08/18 [facility] ALLIED HEALTHon 07-06-2018 ALLIED HEALTH HNO ID: [id number] Author: Cielo Montoya) MARIUSZ Bee Service: Home Care Services Author Type: Registered Nurse Type: Allied Health Filed: 07/06/2018 2:10 PM Note Text: [employer] NOTE SERVICE DATE: 07/06/2018 SERVICE TIME: 2:09 PM Discharge: Aware of Discharge home today. Physician order placed for Home Care Services. Home Care Agency: [facility] Start of care date: 07/07/18--07/08/18 Supplies ordered: N/A Patient/Family agree to discharge plan: Yes SIGNATURE: Cielo Bee RN PATIENT NAME: Krystian Child DATE: July 06, 2018 TIME: 2:09 PM [facility] CASE MANAGEMon 07-06-2018 CASE MANAGEM HNO ID: [id number] Author: Keisha DrakeRn) MARIUSZ Tamayo Service: Care Management Author Type: Registered Nurse Type: Care Mgt Progress Note Filed: 07/06/2018 11:20 AM Note Text: CARE MANAGEMENT DISCHARGE NOTE SERVICE DATE: 07/06/2018 SERVICE TIME: 11:19 AM LOS: 11 days Admission Date: 06/25/2018 DISCHARGE ARRANGEMENT (list agency and phone number) Home Home Care - Nursing and PT Provider: JASPREET CAREGIVER ASSESSMENT: Caregiver is ready, willing and able to meet the patient's needs as recommended by the inter-professional team? Yes Patient's transition needs and plan for meeting these needs: home with family and hhc- [facility] Does the patient have an acute stroke diagnosis, or has the patient had a stroke during this admission? No HANDOFF COMMUNICATION: [facility] notified of pts d/c and able to accept pt. TRANSPORTATION ARRANGEMENTS: Car Family ADDITIONAL CONTACT RESOURCES: SIGNATURE: Keisha Tamayo RN PATIENT NAME: Krystian Child DATE: July 06, 2018 TIME: 11:19 AM PAGER/CONTACT #: [phone] [facility] CHEST 2 VIEWSon 07-06-2018 CHEST 2 VIEWS Performed at [facility] APPROVED BY: Neri Matthews MD EXAMINATION: CHEST RADIOGRAPH (2 VIEW FRONTAL & LATERAL) CLINICAL HISTORY: The patient is a 72-year-old male who is undergone coronary artery bypass grafting. MQ: XC2_5 Comparison: Chest radiographs from the past 5 days. RESULT: Lines, tubes, and devices: Previously identified right internal jugular venous catheter has been removed. EKG leads overlie the chest. Lungs and pleura: Small posterior costophrenic angle bilateral pleural effusions are present. There is some bibasilar atelectasis. There is some patchy infiltrate in the right lower lobe. The rest of the lungs are clear. Cardiomediastinal silhouette: Normal cardiomediastinal silhouette. Other: No other significant abnormalities identified. IMPRESSION: Postoperative chest radiograph demonstrates residual bilateral pleural effusions and small posterior right costophrenic angle infiltrate. As compared to the last exam there is overall improved aeration of the lungs. [facility] PLAN OF CAREon 07-06-2018 PLAN OF CARE HNO ID: [id number] Author: Larissa Lopez (Supply Room Clerk) Service: (none) Author Type: (none) Type: Plan of Care Filed: 07/06/2018 1:33 PM Note Text: PHARMACY BEDSIDE DELIVERY SERVICE Patient Name: Krystian Child The marked outpatient medications were Filled at: [facility] and delivered to the patient's bedside to Patient and and daughter -- MARIUSZ Tellez notified Medication List START taking these medications acetaminophen 325 mg tablet Commonly known as: TYLENOL Take 2 tablets by mouth every 6 hours as needed. furosemide 40 mg tablet Commonly known as: LASIX Take 1 tablet by mouth once daily for 5 days. Start taking on: 07/07/2018 metoprolol tartrate (short acting) 50 mg tablet Commonly known as: LOPRESSOR Take 1 tablet by mouth every 12 hours. oxyCODONE IR 5 mg immediate release tablet Commonly known as: ROXICODONE Take 1 tablet by mouth every 6 hours as needed for Pain for up to 7 days. Earliest Fill Date: 07/06/18 polyethylene glycol 3350 17 gram packet Commonly known as: MIRALAX, GLYCOLAX Take 1 Packet by mouth once daily as needed (constipation). senna-docusate 8.6-50 mg per tablet Commonly known as: SENNA-S Take 1 tablet by mouth twice daily. Take daily while taking narcotic pain medication CHANGE how you take these medications aspirin, enteric coated 81 mg EC tablet Commonly known as: ASPIRIN, ENTERIC COATED Take 2 tablets by mouth once daily. Take 2 tablets for 1 month, then decrease to 1 tablet. What changed: ? how much to take ? additional instructions atorvastatin 40 mg tablet Commonly known as: LIPITOR Take 1 tablet by mouth daily at bedtime. What changed: ? medication strength ? how much to take ? when to take this STOP taking these medications PLAVIX 75 mg tablet Generic drug: clopidogrel Larissa Lopez ([employer]) PAGER: Phone extension [phone] or call: July 06, 2018 1:32 PM [facility] PLAN OF CARE HNO ID: [id number] Author: Janiya Yoder (Supply Room Clerk) Service: (none) Author Type: (none) Type: Plan of Care Filed: 07/06/2018 11:52 AM Note Text: PLAN CHECKER BEDSIDE DELIVERY SURVEY 1. Patient to use [facility] Bedside Delivery - YES Insurance Information as follows: 2. Insurance card on file - YES 3. Credit card for payment - N/A . Please call [phone] upon discharge. We have prescriptions for Aspirin 81mg two daily Furosemide 40mg one daily Metoprolol tartrate 50mg one every 12 hours Atorvastatin 40mg one daily Senna 8.6mg 1 twice daily gavilax 1 capful daily Oxycodone 5 mg Total of $33.07 [facility] PLAN OF CARE HNO ID: [id number] Author: Adelaide Odom (Pharmacist) Service: Pharmacy Author Type: Pharmacist Type: Plan of Care Filed: 07/06/2018 11:08 AM Note Text: Pharmacy Discharge Medication Service: This patient has elected to receive their discharge prescriptions through the [facility] Bedside Prescription Delivery program. The prescriptions are currently being processed. A follow-up note will be entered once the prescriptions have been filled and delivered to the patient. Please contact me with any questions or updates to the patient's discharge medications. ANITA YORK DCT Contact Info: [phone] [facility] PT EDon 07-06-2018 PT ED HNO ID: [id number] Author: Consuelo Li (Pharmacist) Service: Pharmacy Author Type: Pharmacist Type: Patient Education Filed: 07/06/2018 11:38 AM Note Text: DISCHARGE MEDICATION REVIEW AND COUNSELING BY PHARMACY Patient Name: Krystian Child Account #: Data Unavailable Admission Date: 06/25/2018 Date of Contact: July 06, 2018 Time of Contact: 11:36 AM LEARNERS Persons Present: Patient, Partner and Family: daughter Primary Learner: Patient and Partner Medication list was reviewed by a Pharmacist for drug interactions or drug related problems:Yes The patient was counseled on the medication(s) listed below and was given the opportunity to ask questions regarding indication, dosage, side effects and drug interactions READINESS TO LEARN COGNITIVE ABILITY:Alert and oriented MOTIVATION TO LEARN:Eager Interested FAMILY SUPPORT:High - Very involved in pt care INSTRUCTION PROVIDED TO:Patient and Spouse PATIENT LEARNS BEST BY:Individual Instruction Written Instruction - Hand-outs Verbal Instruction FACTORS AFFECTING LEARNING:None PHYSICAL LIMITATIONS AFFECTING LEARNING:None LEARNING RESPONSE PATIENT / FAMILY RESPONSE:Verbalizes understanding of: Accurate knowledge of prescribed medication prior to discharge. The correct action to take if medication dose is missed. The side effects associated with the medication that warrant a call to the physician. Patient elected pharmacy marine engine mechanic service. CONSUELO LI PHARMACIST July 06, 2018 11:36 AM Medication List START taking these medications acetaminophen 325 mg tablet Commonly known as: TYLENOL Take 2 tablets by mouth every 6 hours as needed. furosemide 40 mg tablet Commonly known as: LASIX Take 1 tablet by mouth once daily for 5 days. Start taking on: 07/07/2018 metoprolol tartrate (short acting) 50 mg tablet Commonly known as: LOPRESSOR Take 1 tablet by mouth every 12 hours. oxyCODONE IR 5 mg immediate release tablet Commonly known as: ROXICODONE Take 1 tablet by mouth every 6 hours as needed for Pain for up to 7 days. Earliest Fill Date: 07/06/18 polyethylene glycol 3350 17 gram packet Commonly known as: MIRALAX, GLYCOLAX Take 1 Packet by mouth once daily as needed (constipation). senna-docusate 8.6-50 mg per tablet Commonly known as: SENNA-S Take 1 tablet by mouth twice daily. Take daily while taking narcotic pain medication CHANGE how you take these medications aspirin, enteric coated 81 mg EC tablet Commonly known as: ASPIRIN, ENTERIC COATED Take 2 tablets by mouth once daily. Take 2 tablets for 1 month, then decrease to 1 tablet. What changed: ? how much to take ? additional instructions atorvastatin 40 mg tablet Commonly known as: LIPITOR Take 1 tablet by mouth daily at bedtime. What changed: ? medication strength ? how much to take ? when to take this STOP taking these medications PLAVIX 75 mg tablet Generic drug: clopidogrel Where to Get Your Medications These medications were sent to e- [facility] [place] [address] - [facility] - [phone] [id number] [address] ? aspirin, enteric coated 81 mg EC tablet ? atorvastatin 40 mg tablet ? furosemide 40 mg tablet ? metoprolol tartrate (short acting) 50 mg tablet ? polyethylene glycol 3350 17 gram packet ? senna-docusate 8.6-50 mg per tablet Information about where to get these medications is not yet available Ask your nurse or doctor about these medications ? acetaminophen 325 mg tablet ? oxyCODONE IR 5 mg immediate release tablet Normal [facility] ALLIED HEALTHon 07-05-2018 ALLIED HEALTH HNO ID: [id number] Author: Jealni (Health Associate) GAVINO Arora Service: Cardiac Rehab Author Type: Registered Resp Therapist Type: Allied Health Filed: 07/05/2018 10:54 AM Note Text: CARDIAC REHABILITATION PATIENT EDUCATION PROGRESS NOTE Name: Krystian Child Date of Service: 07/05/18 Time of Service: 1051 ASSESSMENT: Risk Factors Identified: Family History Stressful Life Events: Stress Score Moderate RECOMMENDATIONS: Patient interested in Phase II Outpatient Cardiac Rehab: Yes. Facility Preferred: [facility] DIAGNOSIS: Open Heart Surgery: CABG Open Heart Surgery Teaching Points: -Basic Anatomy and Disease Process -Personal Modifiable Risk Factor Identification -Activity/Physical Exercise Recommendations -When patient should call provider -Emergency planning: Symptom recognition, Stop activity, Rest, Nitroglycerine use, Pulse check, Call 911 READINESS TO LEARN: Cognitive Ability: Alert and Oriented Motivation to Learn: Eager Family Support: High - Very involved in pt care Instruction Provided To: Patient and family member Patient Learns Best By: Individual Instruction, Written Instruction - Hand-outs, Verbal Instruction and Demonstration Factors Affecting Learning: None Physical Limitations Affecting Learning: None LEARNING RESPONSE: Method Of Instruction: Individual instruction Group class instruction Written instruction - handouts Verbal instruction Patient/Family Response: Verbalizes understanding of: Cardiac rehab phase II, Incision care, and risk factors Follow-up Plan: No further educational needs identified at this time. Instructional Aids Used: Anatomical Model/Drawing Cardiac Rehabilitation Brochure Signature: Jelani Arora RRT Pager: [phone] Date: July 05, 2018 Time: 10:51 AM [facility] CASE MANAGEMon 07-05-2018 CASE MANAGEM HNO ID: [id number] Author: Keisha Tamayo RN Service: Care Management Author Type: Registered Nurse Type: Care Mgt Progress Note Filed: 07/05/2018 1:45 PM Note Text: CARE MANAGEMENT PROGRESS NOTE SERVICE DATE: 07/05/2018 SERVICE TIME: 1:44 PM LOS: 10 days Spoke with pt at the bedside. Plan for pt to return home with with [facility]. Pt states that he does not want a wheeled walker issued to him. He states that he does not need one. Will follow. SIGNATURE: Keisha Tamayo RN PATIENT NAME: Krystian Child DATE: July 05, 2018 TIME: 1:44 PM PAGER/CONTACT #: [phone] [facility] NUTRITIONon 07-05-2018 NUTRITION HNO ID: [id number] Author: Judit Rivas Service: Cardiac Rehab Author Type: Registered Dietitian Type: Nutrition Filed: 07/05/2018 2:04 PM Note Text: NUTRITION THERAPY PATIENT EDUCATION SERVICE DATE: 07/05/2018 SERVICE TIME: 2:03 PM TOPIC: Cardiac Rehab: Therapeutic Lifestyle Changes (TLC) Diagnosis: S/p CABG x 5 READINESS TO LEARN Cognitive Ability: Alert and oriented Motivation to Learn: Eager Family Support: High - Very involved in pt care Instruction Provided to: Patient and Spouse Patient Learns Best by: Individual Instruction Factors Affecting Learning: None Physical Limitations Affecting Learning: None LEARNING RESPONSE Patient / Family Response: Verbalizes understanding of Heart Healthy (CTS) Diet: Consuming 30% or less calories from fat, of which no more than 7% are saturated fat calories; no more than 200 mg cholesterol/day; and 2 grams of sodium Method of Instruction: Individual instruction Instructional Aids Used: NA Supplemental Material Provided to Patient: None Follow-Up Plan: Reinforce - Repeat previous content while participating in Cardiac Rehab. Follow up with cardiology MNT Billing: Initial Assess/15 min 1 unit SIGNATURE: Judit Rivas RD, LD PATIENT NAME: Krystian Child DATE: July 05, 2018 TIME: 2:03 PM PAGER: [phone] [facility] PROCEDUREon 07-05-2018 Protein mass conc HNO ID: [id number] Author: Orlando Jacobs Service: Cardiac Surgery Author Type: Nurse Practitioner Type: Procedures Filed: 07/05/2018 9:53 AM Note Text: BEDSIDE PROCEDURE NOTE Atrial epicardial pacing wire removal Performed by: ORLANDO JACOBS Authorized by: ORLANDO JACOBS Pre-procedure Details: The area was prepped with alcohol and allowed to dry. A sterile partial body drape was applied following the usual aseptic technique. Medications: None Procedure Details: Plt 161. Atrial epicardial pacing wires pulled without difficulty. Pt educated to rest in chair x 1 hour. Post-procedure Details: Patient tolerated the procedure well with no immediate complications Estimated Blood Loss: None Specimens Sent: None SIGNATURE: Orlando Jacobs APRN.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 CLAIMS AIDE PATIENT NAME: Krystian Child DATE: July 05, 2018 TIME: 9:52 AM PAGER/CONTACT #: [phone] [facility] PROGRESSon 07-05-2018 Protein mass conc HNO ID: [id number] Author: Orlando Jacobs Service: Cardiac Surgery Author Type: Nurse Practitioner Type: Progress Notes Filed: 07/05/2018 9:59 AM Note Text: CARDIOTHORACIC SURGERY POSTOP PROGRESS NOTE SERVICE DATE: 07/05/2018 SERVICE TIME: 8:53 AM Subjective S/P SURGERY: Procedure(s) (LRB): CABGx4 (TYLER-LAD, SVG-Diag, -OM, -RCA, EVH) DATE OF SURGERY: 07/01/2018 POSTOP DAY #4 LOS: 10 HPI: This is a 72 year old male with PMHX of HTN, HLD who presents with history of angina and SOB. He was referred by his PCP For a stress test that was read as abnormal. He was plavix loaded and underwent cardiac catheterization 06/25/[address] Stubbs at [facility]. This is in the setting of TIA - like symptoms x2 episodes, (CT with evidence of lacunar infarct). He denies any thyroid disease, lung disease (ex-smoker quit 30+ years ago), DM, liver disease, abnormal bleeding or clotting. Interval events: Post operative recovery was unremarkable, he transferred to [facility] on POD2. On POD 3 he was noted to have paraphimosis which was reduced with out difficulty. Today, Mr Danyell reports his is doing quite well. Ambulating, eating some. Wants BM. Discussed going home. Objective Admission Weight: 100.2 kg (220 lb 12.8 oz) BP 108/66 Pulse 91 Temp 36.6 ?C (97.9 ?F) (Oral) Resp 16 Ht 177.8 cm (5' 10) Wt 107.2 kg (236 lb 4.8 oz) SpO2 94% BMI 33.91 kg/m? Body surface area is 2.3 meters squared. Min/Max/Average Temperature AND Blood Pressure: Temp (24hrs), Av.9 ?C (98.5 ?F), Min:36.6 ?C (97.9 ?F), Max:37.4 ?C (99.3 ?F) Systolic (24hrs), Av , Min:108 , Max:157 Diastolic (24hrs), Av, Min:52, Max:73 Intake/Output Summary (Last 24 hours) at 07/05/18 0882 Last data filed at 07/05/18 0745 Gross per 24 hour Intake 720 ml Output 1125 ml Net -405 ml TELEMETRY: normal sinus rhythm PHYSICAL EXAM: General Appearance: well developed and no distress Skin: Midsternal incision dry AND intact., SVG incisions dry AND intact., warm and dry Lungs: clear, decreased breath sounds and respiratory effort: normal Heart: S1, S2 normal Peripheral Vascular/Arteries: pulses intact Abdomen: soft, round, non-tender and bowel sounds present Neurologic/Psychiatric: oriented to time, place and person Extremities: normal exam of the extremities and edema: 2+, pitting at knees Lines, Drains, and Airways Line Peripheral 06/26/18 Assessment Left Antecubital 20 Gauge 9 days DATA: Diagnostic tests reviewed for today's visit: Significant Lab Results: As Below Chest X-RAY: . COMPARISON: Several recent chest x-rays the most recent dated 07/03/2018. ? Portable frontal view of the chest shows right internal jugular central line with tip at the caval atrial junction. ? Multiple engine monitor leads overlying over the left chest. ?This makes it difficult to assess for other lines and tubes. ?Left-sided chest tube is not clearly identified on this film and most likely has been removed. ? No significant left-sided pneumothorax is identified. ? Patchy diminished aeration at both lung bases most likely represent subsegmental atelectasis. ? Heart size is normal. Recent Labs 07/04/18 0524 07/03/18 0501 RBC 3.22* 3.32* WBC 8.69 10.71* HB 10.3* 10.5* HCT 30.5* 32.4* PLT 161 138* NA 137 138 K 3.8 4.5 CHLOR 105 108* CO2 27 25 BUN 28* 27* CREAT 0.99 1.14 GLUC 115* 134* CA 7.9* 8.1* MG -- 2.8* ANION 9 10 Assessment/Plan CAD S/P CABG x 4 (tyler-lad; svg-diag, om, rca; evh) with normal LVF pre and post CABG -POD#4 -Medical management with ASA 162, atorvastatin 40, Metoprolol 50 q12 -Pain control with morphine, percocet, tylenol -Post operative vest support -IS/ Ambulation/ PT -D/C wires today. ? Anticipated post operative respiratory insufficiency -Room air -Encourage deep breathing and IS ? Leukocytosis -Likely reactive form OR -Trending down -Afebrile -Continue to Monitor ? Volume Overload -40 PO lasix ? Anticipated Post-Op Blood Loss Anemia -HANDH currently .10/21 ? Thrombocytopenia -161 - resolved ? VTE PPX -SCD/ Lovenox ? GI PPX -Pantoprazole ? Diet -Heart healthy ? Dispo: Home with home health care 24 hours. Tests/Labs Ordered: 1. CXR SIGNATURE: Orlando Jacobs APRN.CNP PATIENT NAME: Krystian Child DATE: July 05, 2018 TIME: 8:52 AM PAGER/CONTACT #: [phone] Normal [facility] Basic Panelon 07-04-2018 Creatinine mass conc 0.99 mg/dL Normal 0.67-1.17 [facility] Comment on above: Performed By: #### G FR #### [facility] [address] [address] Anion gap molar conc 9 mmol/L Normal 8-16 [facility] Comment on above: Performed By: #### G FR #### [facility] [address] [address] CO2 molar conc 27 mmol/L Normal 21-32 [facility] Comment on above: Performed By: #### G FR #### [facility] [address] [address] Urea nitrogen mass conc 28 mg/dL High 7-18 [facility] Comment on above: Performed By: #### G FR #### [facility] [address] [address] Calcium mass conc 7.9 mg/dL Low 8.5-10.1 [facility] Comment on above: Performed By: #### G FR #### [facility] [address] [address] Glucose mass conc 115 mg/dL High 70-99 [facility] Comment on above: Performed By: #### G FR #### [facility] [address] [address] Chloride molar conc 105 mmol/L Normal 98-107 [facility] Comment on above: Performed By: #### G FR #### [facility] [address] [address] Potassium molar conc 3.8 mmol/L Normal 3.5-5.1 [facility] Comment on above: Performed By: #### G FR #### [facility] [address], [place] [address] Sodium molar conc 137 mmol/L Normal 136-145 [facility] Comment on above: Performed By: #### G FR #### [facility] [address], [place] [address] CHEST 1 VIEWon 07-04-2018 CHEST 1 VIEW Performed at [facility] APPROVED BY: Ousmane Avila MD EXAM TITLE: CHEST 1 VIEW DATE: 07/04/2018 06:39 INDICATION: Status post coronary artery bypass graft. COMPARISON: Several recent chest x-rays the most recent dated 07/03/2018. Portable frontal view of the chest shows right internal jugular central line with tip at the caval atrial junction. Multiple engine monitor leads overlying over the left chest. This makes it difficult to assess for other lines and tubes. Left-sided chest tube is not clearly identified on this film and most likely has been removed. No significant left-sided pneumothorax is identified. Patchy diminished aeration at both lung bases most likely represent subsegmental atelectasis. Heart size is normal. IMPRESSION: Left-sided chest tube is most likely been removed. It is difficult to visualize on this film due to overlying chest monitor leads. Correlate clinically. Normal [facility] CONSULTon 07-04-2018 CONSULT HNO ID: [id number] Author: Gerson Matthews Service: Urology Author Type: Physician Type: Consults Filed: 07/04/2018 9:08 AM Note Text: Urology Consultation ADMISSION DATE: 06/25/2018 SERVICE DATE: 07/03/2018 REASON FOR CONSULT: Paraphimosis HISTORY OF PRESENT ILLNESS: The patient is a 72 year old male who presents for CABG x 4, now POD#2. Had a Anguiano placed for surgery, which was removed yesterday. Has been voiding well, but today nursing noted some swelling of the penis, with an inability to retract his foreskin. Penis tender as well. Urology was consulted. Patient found to have a paraphimosis. Foreskin was likely retracted on placement of catheter, then never reduced. Now very difficult to reduce. Coban was used to wrap penis tightly, starting distally, then moving proximally. The was left on for 20 minutes to reduce the edema and swelling. Coban was then removed, and foreskin was able to be manually reduced. No signs of skin breakdown or ulceration. Mild swelling of the prepuce. Patient tolerated well. PAST MEDICAL HISTORY: PAST MEDICAL HISTORY Diagnosis Date - Chronic rhinitis - Family history of malignant neoplasm of gastrointestinal tract family history of colon cancer - Hemorrhage of gastrointestinal tract, unspecified - Impotence of organic origin - Internal hemorrhoids without mention of complication - Mitral valve disorders(424.0) - Other dyspnea and respiratory abnormality - SCC (squamous cell carcinoma) PAST SURGICAL HISTORY: PAST SURGICAL HISTORY Procedure Laterality Date - APPENDECTOMY - COLONOSCOP W/ OR W/O [facility] SPEC Colonoscopy - COLONOSCOP W/ OR W/O [facility] SPEC 10/31/05 Repeat in - MOHS 1 STAGE T/A/L 07/09 - REM LESION NEC,HAND,SCAL<0.5CM 09/23/06 Exc. right mid neck lesion ALLERGIES: ALLERGIES No Known Allergies HOME MEDICATIONS: Prescriptions Prior to Admission: aspirin, enteric coated (ASPIRIN, ENTERIC COATED) 81 mg EC tablet Take 81 mg by mouth once daily. Disp: Rfl: 06/25/2018 at Unknown time clopidogrel (PLAVIX) 75 mg tablet Take 75 mg by mouth once daily. Disp: Rfl: 06/25/2018 at Unknown time atorvastatin (LIPITOR) 10 mg tablet Take 10 mg by mouth once daily. Disp: Rfl: 06/24/2018 at Unknown time FAMILY HISTORY: Family History Problem Relation Age of Onset - Colon Cancer Father - Heart Brother - Heart Brother - Heart Mother - Diabetes Mother - Hypertension Mother - Stroke Mother - Stroke Brother - Alcohol/Drug Brother Social History: Tobacco Use: Quit 09/30/1979. Alcohol Use: No ROS: Constitutional: negative for chills and fevers HEENT: no blurry vision or eye redness Respiratory: negative for hemoptysis and shortness of breath Cardiovascular: negative for dyspnea and syncope Gastrointestinal: negative for jaundice, nausea and vomiting Genitourinary: penile soreness Hematologic/lymphatic: negative for bleeding Integumentary: no new bruises or lesions Musculoskeletal:negative for muscle weakness Neurological: negative for coordination problems and seizures All other systems negative PHYSICAL EXAM: VITALS: 07/03/18 1600 07/03/18 1705 07/03/18 2102 07/03/18 2346 BP: 120/67 134/65 122/73 Pulse: 98 72 92 86 Resp: (!) 33 18 20 18 Temp: 36.6 ?C (97.9 ?F) 37 ?C (98.6 ?F) 37 ?C (98.6 ?F) TempSrc: Oral Oral Oral SpO2: 92% 100% 93% 94% Weight: Height: General: Alert, in no acute distress Head: Normocephalic, atraumatic Neck: supple, trachea is midline, no obvious masses Respiratory: normal effort, no audible wheezes Cardiovascular: regular pulse and no cyanosis Musculoskeletal: moving all extremities, normal tone Skin: warm and dry Psych: normal mood and affect, oriented Abdomen: soft, non distended, non tender, no organomegaly, no hernias : uncircumcised, paraphimosis with tenderness. After reduction, some preputial edema, but no ulcerations or necrosis DATA: LABS: BMP: . Glucose (mg/dL) Date Value 07/03/2018 134 Potassium (mEq/L) Date Value 07/03/2018 4.5 Sodium (mEq/L) Date Value 07/03/2018 138 Chloride (mEq/L) Date Value 07/03/2018 108 CO2 (mEq/L) Date Value 07/03/2018 25 Creatinine (mg/dL) Date Value 07/03/2018 1.14 BUN (mg/dL) Date Value 07/03/2018 27 Anion Gap (no units) Date Value 07/03/2018 10 Calcium (mg/dL) Date Value 07/03/2018 8.1 CBC: HGB (g/dL) Date Value 07/03/2018 10.5 Hematocrit (%) Date Value 07/03/2018 32.4 WBC (thou/cmm) Date Value 07/03/2018 10.71 Platelet Count (thou/cmm) Date Value 07/03/2018 138 Urinalysis: pH, Arterial Date Value Ref Range Status 07/01/2018 7.324 (L) 7.350 - 7.450 Final Specific [place], Ur Date Value Ref Range Status 06/26/2018 1.018 1.005 - 1.030 Final Glucose, Urine Date Value Ref Range Status 06/26/2018 NEGATIVE Negative mg/dL Final Bilirubin, Urine Date Value Ref Range Status 06/26/2018 NEGATIVE Negative Final Ketones, Urine Date Value Ref Range Status 06/26/2018 NEGATIVE Negative mg/dL Final Protein, Urine Date Value Ref Range Status 06/26/2018 NEGATIVE Negative mg/dL Final Urobilinogen, Urine Date Value Ref Range Status 06/26/2018 1.0 0.0 - 1.0 EU/dL Final Urine Culture: No results found for: URCUL RADIOLOGY: None ASSESSMENT/PLAN: 72 year old male with paraphimosis, reduced - Observe foreskin, unsure that it is not retracted - Daily hygiene - Call if swelling worsens or there develop signs of infection - Will sign off, call with questions Thank you for allowing me to participate in the care of your patient SIGNATURE: Mohamud Husain MD PATIENT NAME: Krystian Child DATE: 07/03/2018 TIME: 11:48 PM PAGER: [phone] I saw and evaluated the patient. Discussed with the resident and agree with resident's findings and plan as documented in the resident's note. Pt dong well this AM, comfortable and swelling resolved. Will sign off Gerson Matthews MD Normal [facility] Hemogramon 07-04-2018 Erythrocyte distribution width Ratio (RBC) 13.4 % Normal 11.6-14.4 [facility] Comment on above: Performed By: #### G FR #### [facility] [address] [address] Hematocrit Volume Fraction (Bld) 30.5 % Low 40.1-51.0 [facility] Comment on above: Performed By: #### G FR #### [facility] [address] [address] Hemoglobin mass conc (Bld) 10.3 g/dL Low 13.7-17.5 [facility] Comment on above: Performed By: #### G FR #### [facility] [address] [address] MCH Entitic mass (RBC) 32.0 pg Normal 25.7-32.2 [facility] Comment on above: Performed By: #### G FR #### [facility] [address] [address] MCHC mass conc (RBC) 33.8 % Normal 32.3-36.5 [facility] Comment on above: Performed By: #### G FR #### [facility] [address] [address] MCV Entitic volume (RBC) 94.7 fL Normal 83.2-95.6 [facility] Comment on above: Performed By: #### G FR #### [facility] [address] [address] Platelet mean volume Entitic volume (Bld) 11.0 fL Normal 8.7-12.0 [facility] Comment on above: Performed By: #### G FR #### [facility] [address] [address] Platelets #/vol (Bld) 161 thou/cmm Normal 141-365 [facility] Comment on above: Performed By: #### G FR #### [facility] [address] [address] RBC #/vol (Bld) 3.22 mil/cmm Low 4.63-6.08 [facility] Comment on above: Performed By: #### G FR #### [facility] [address] [address] RDW SD 46.0 fl High 36.1-45.8 [facility] Comment on above: Performed By: #### G FR #### [facility] [address] [place], [place] [address] WBC #/vol (Bld) 8.69 thou/cmm Normal 4.23-9.07 [facility] Comment on above: Performed By: #### G FR #### [facility] [address] [address] MDRD GFRon 07-04-2018 GFR/1.73 sq M predicted among non-blacks MDRD vol rate/area (S/P/Bld) mL/min/{1.73_m2} Normal >60mL/min/1 .73m2 [facility] Comment on above: Result Comment: If t he patient is , multiply the result by 1.210. Performed By: #### G FR #### [place] [address] PROGRESSon 07-04-2018 Protein mass conc HNO ID: [id number] Author: Dani Miller Service: Thoracic Surgery Author Type: Physician Type: Progress Notes Filed: 07/04/2018 11:34 AM Note Text: For [place] POD #3 S-seen with PA. Patient just walked and now standing to void. Feels better O-labs noted, cxr as expected. A-Improving P-as ordered. Normal [facility] Basic Panelon 07-03-2018 Creatinine mass conc 1.14 mg/dL Normal 0.67-1.17 [facility] Comment on above: Performed By: #### G FR #### [facility] [address] [address] Anion gap molar conc 10 mmol/L Normal 8-16 [facility] Comment on above: Performed By: #### G FR #### [facility] [address] [address] CO2 molar conc 25 mmol/L Normal 21-32 [facility] Comment on above: Performed By: #### G FR #### [facility] [address] [address] Glucose mass conc 134 mg/dL High 70-99 [facility] Comment on above: Performed By: #### G FR #### [facility] [address] [address] Urea nitrogen mass conc 27 mg/dL High 7-18 [facility] Comment on above: Performed By: #### G FR #### [facility] [address] [place], [place] [address] Calcium mass conc 8.1 mg/dL Low 8.5-10.1 [facility] Comment on above: Performed By: #### G FR #### [facility] [address] [place], [place] [address] Chloride molar conc 108 mmol/L High 98-107 [facility] Comment on above: Performed By: #### G FR #### [facility] [address] [place], [place] [address] Potassium molar conc 4.5 mmol/L Normal 3.5-5.1 [facility] Comment on above: Performed By: #### G FR #### [facility] [address] [place], [place] [address] Sodium molar conc 138 mmol/L Normal 136-145 [facility] Comment on above: Performed By: #### G FR #### [facility] [address] [address] CHEST 1 VIEWon 07-03-2018 CHEST 1 VIEW Performed at [facility] APPROVED BY: Delvin Altamirano MD EXAM TITLE: AP UPRIGHT PORTABLE CHEST DATE: 07/03/2018 04:58 COMPARISON: 07/02/2018, 07/01/2018, 06/26/2018 CLINICAL INDICATION/HISTORY: The patient is 1 day status post sternotomy. TECHNIQUE: A single AP upright portable view of the chest is presented. FINDINGS: Tubes and lines: The patient is status post sternotomy. There is a right internal jugular venous catheter with its tip at the junction of the superior vena cava and the right atrium. There is a left-sided chest tube which is unchanged in position. No other tubes or lines are identified. Cardiomediastinal silhouette: There is cardiomegaly. The thoracic aorta is tortuous. The mediastinum is unremarkable. The pulmonary vascularity is within normal limits. Lungs and pleura: The right costophrenic angle is clear. There is slight indistinctness the left costophrenic angle suspicious for small left pleural effusion. There is some bibasilar atelectasis left greater than right. There is a very small left apical pneumothorax. There is slight interval decrease in lung volumes. IMPRESSION: 1. Tubes and lines as described above. 2. Very small left apical pneumothorax. 3. Interval decrease in lung volumes. 4. Small left pleural effusion and bibasilar atelectasis left greater than right. Normal [facility] Glucose Meteron 07-03-2018 Glucose mass conc 135 mg/dL High 70-99 [facility] Comment on above: Result Comment: MARIUSZ MAHONEY Performed By: #### P 14 #### [facility] [address] [place] [address] Hemogramon 07-03-2018 Erythrocyte distribution width Ratio (RBC) 14.0 % Normal 11.6-14.4 [facility] Comment on above: Performed By: #### L IPD2 #### [place] [address] Hematocrit Volume Fraction (Bld) 32.4 % Low 40.1-51.0 [facility] Comment on above: Performed By: #### L IPD2 #### [place] [address] Hemoglobin mass conc (Bld) 10.5 g/dL Low 13.7-17.5 [facility] Comment on above: Performed By: #### L IPD2 #### [place] [address] MCH Entitic mass (RBC) 31.6 pg Normal 25.7-32.2 [facility] Comment on above: Performed By: #### L IPD2 #### [place] [address] MCHC mass conc (RBC) 32.4 % Normal 32.3-36.5 [facility] Comment on above: Performed By: #### L IPD2 #### [facility] [address] [place] [address] MCV Entitic volume (RBC) 97.6 fL High 83.2-95.6 [facility] Comment on above: Performed By: #### L IPD2 #### [place] [address] Platelet mean volume Entitic volume (Bld) 11.1 fL Normal 8.7-12.0 [facility] Comment on above: Performed By: #### L IPD2 #### [facility] [address] [place] [address] Platelets #/vol (Bld) 138 thou/cmm Low 141-365 [facility] Comment on above: Performed By: #### L IPD2 #### [facility] [address] [place] [address] RBC #/vol (Bld) 3.32 mil/cmm Low 4.63-6.08 [facility] Comment on above: Performed By: #### L IPD2 #### [facility] [address] [place] [address] RDW SD 49.6 fl High 36.1-45.8 [facility] Comment on above: Performed By: #### L IPD2 #### [facility] [address] [place] [address] WBC #/vol (Bld) 10.71 thou/cmm High 4.23-9.07 [facility] Comment on above: Performed By: #### L IPD2 #### [facility] [address] [place] [address] Magnesium Bloodon 07-03-2018 Magnesium mass conc 2.8 mg/dL High 1.6-2.6 [facility] Comment on above: Performed By: #### G FR #### [place] [address] NURSING PROGon 07-03-2018 Protein mass conc HNO ID: [id number] Author: Paulina DrakeRn) MARIUSZ Mckeon Service: Nursing Author Type: Registered Nurse Type: Nursing Progress Note Filed: 07/03/2018 5:02 PM Note Text: Transferred to 4237 [facility] Protein mass conc HNO ID: [id number] Author: Paulina DrakeRn) MARIUSZ Mckeon Service: Nursing Author Type: Registered Nurse Type: Nursing Progress Note Filed: 07/03/2018 4:42 PM Note Text: Report called to 4200 RN [facility] Protein mass conc HNO ID: [id number] Author: Sivakumar DrakeRn) MARIUSZ [place] Service: (none) Author Type: Registered Nurse Type: Nursing Progress Note Filed: 07/03/2018 7:04 PM Note Text: RN Sivakumar summoned to pt bedside to assist with retracted foreskin. Pt c/o pain with attempt to return foreskin to normal position; edema noted to glans/head of penis and unable to be returned. RN notified pt's primary RN Isabelle and summoned PA Julia to identify concern for paraphimosis. PA at bedside ~1400 to inspect; urology paged. Normal [facility] PROGRESSon 07-03-2018 Protein mass conc HNO ID: [id number] Author: Dani Miller Service: Cardiac Surgery Author Type: Physician Type: Progress Notes Filed: 07/03/2018 12:53 PM Note Text: CARDIOTHORACIC SURGERY POSTOP PROGRESS NOTE SERVICE DATE: 07/03/2018 SERVICE TIME: 9:43 AM Subjective S/P SURGERY: Procedure(s) (LRB): BYPASS GRAFT ARTERY CORONARY ON-PUMP SINGLE CORONARY ARTERIAL GRAFT (N/A) BYPASS GRAFT ARTERY CORONARY OFF PUMP VENOUS GRAFT(S) AND ARTERIAL GRAFT(S) THREE VENOUS GRAFTS (N/A) ENDOSCOPIC HARVEST VEIN FOR CORONARY ARTERY BYPASS PROCEDURE (N/A) DATE OF SURGERY: 07/01/2018 POSTOP DAY #2 LOS: 8 INTERVAL EVENTS / PERTINENT ROS: Patient in chair. Feels well, pain controlled with oral pain medication. Objective Admission Weight: 100.2 kg (220 lb 12.8 oz) BP 120/72 Pulse 79 Temp 36.5 ?C (97.7 ?F) Resp 20 Ht 177.8 cm (5' 10) Wt 108.2 kg (238 lb 9.6 oz) SpO2 97% BMI 34.24 kg/m? Body surface area is 2.31 meters squared. Min/Max/Average Temperature AND Blood Pressure: Temp (24hrs), Av.1 ?C (98.8 ?F), Min:36.4 ?C (97.5 ?F), Max:37.5 ?C (99.5 ?F) Systolic (24hrs), Av , Min:102 , Max:132 Diastolic (24hrs), Av, Min:58, Max:72 Intake/Output Summary (Last 24 hours) at 07/03/18 0943 Last data filed at 07/03/18 0926 Gross per 24 hour Intake 1792.8 ml Output 569 ml Net 1223.8 ml TELEMETRY: NSR with occasional runs of bigeminy. PHYSICAL EXAM: General Appearance: Well developed and well nourished appearance. No acute distress. Midsternal AND SVG incision dry AND intact, without redness, drainage or edema. Head/Eyes: Sclera clear, normal conjunctiva. EOMI Lungs: clear and respiratory effort: normal Heart: regular rhythm, pacing wires present and occasional bigeminy Peripheral Vascular/Arteries: pulses intact Abdomen: soft, non-tender and bowel sounds present Neurologic/Psychiatric: Oriented to person, place, time. Normal affect. No gross focal neurologic deficits. Extremities: edema: 1+ Lines, Drains, and Airways Line Peripheral 06/26/18 Assessment Left Antecubital 20 Gauge 7 days Central Line Quadruple Lumen 07/01/18 0751 Non-tunneled Right Neck 2 days Peripheral 07/01/18 0841 Right Hand 16 Gauge 2 days Drain Chest Tube 07/01/18 0913 Left Pleural 28 Fr Tube #1 2 days Chest Tube 07/01/18 0913 Midline Mediastinal 32 Fr Tube #2 2 days DATA: Diagnostic tests reviewed for today's visit: Chest X-RAY: Pneumo is improved Recent Labs 07/03/18 0501 07/02/18 0415 07/01/18 1314 RBC 3.32* 3.77* 3.58* WBC 10.71* 12.65* 14.01* HB 10.5* 12.0* 11.5* HCT 32.4* 35.9* 33.7* PLT 138* 180 129* INR -- -- 1.14 APTT -- -- 30.6 NA 138 144 141 K 4.5 4.4 4.1 CHLOR 108* 115* 111* CO2 25 22 22 BUN 27* 21* 19* CREAT 1.14 1.02 1.15 GLUC 134* 107* 120* CA 8.1* 7.4* 8.8 MG 2.8* 2.1 2.8* ANION 10 11 12 Recent Labs 07/01/18 1314 07/01/18 1157 07/01/18 1130 07/01/18 1101 PH 7.324* 7.349* 7.351 7.373 PCO2 42.1 -- -- -- PO2 136.5* 281.0* 286.0* 291.0* BE -4.4 -- -- -- HCO3 -- 24.3 21.6* 23.1 Assessment/Plan CAD S/P CABG x 4 (tyler-lad; svg-diag, om, rca; evh) with normal LVF pre and post CABG -POD#2 -Medical management with ASA 162, atorvastatin 40 -Increase metoprolol to 25 q 8 -Pain control with morphine, percocet, tylenol -Post operative vest support -IS/ Ambulation/ PT -D/c chest tubes -Maintain central line -Bowel regimen today ? Anticipated post operative respiratory insufficiency -Currently on 2L NC, continue to wean -Encourage deep breathing and IS ? Leukocytosis -Likely reactive form OR -Trending down -Afebrile -Continue to Monitor Volume Overload -40 PO lasix ? Anticipated Post-Op Blood Loss Anemia -HANDH currently 10.5/32.4 -No need for transfusion at this time -Continue to monitor Thrombocytopenia -Likely reactive -Continue to monitor VTE PPX -SCD/ Lovenox ? GI PPX -PPI IV >> PO ? Diet -Heart healthy Dispo -Likely transfer to 4200 later today or tomorrow morning ? Planned in collaboration with Dr. Miller and CVICU team Tests/Labs Ordered: 1. Chest X-ray 2. BMP 3. CBC SIGNATURE: Julia Ackerman PA-C PATIENT NAME: Krystian Child DATE: July 03, 2018 TIME: 9:43 AM PAGER/CONTACT #:[phone] ETX [id number] For [facility] Patient seen, labs, cxr, and data reviewed with PA. Martin reviewed and discussed. P-as ordered. Normal [facility] Basic Panelon 07-02-2018 Creatinine mass conc 1.02 mg/dL Normal 0.67-1.17 [facility] Comment on above: Performed By: #### L IPD2 #### [facility] [address] [place], [place] [address] Anion gap molar conc 11 mmol/L Normal 8-16 [facility] Comment on above: Performed By: #### L IPD2 #### [facility] [address] [place] [address] CO2 molar conc 22 mmol/L Normal 21-32 [facility] Comment on above: Performed By: #### L IPD2 #### [facility] [address] [place] [address] Glucose mass conc 107 mg/dL High 70-99 [facility] Comment on above: Performed By: #### L IPD2 #### [facility] [address] [place] [address] Urea nitrogen mass conc 21 mg/dL High 7-18 [facility] Comment on above: Performed By: #### L IPD2 #### [facility] [address] [place] [address] Calcium mass conc 7.4 mg/dL Low 8.5-10.1 [facility] Comment on above: Performed By: #### L IPD2 #### [facility] [address] [place] [address] Chloride molar conc 115 mmol/L High 98-107 [facility] Comment on above: Performed By: #### L IPD2 #### [facility] [address] [place] [address] Potassium molar conc 4.4 mmol/L Normal 3.5-5.1 [facility] Comment on above: Performed By: #### L IPD2 #### [facility] [address] [place] [address] Sodium molar conc 144 mmol/L Normal 136-145 [facility] Comment on above: Performed By: #### L IPD2 #### [facility] [address] [place] [address] CASE MANAGEMon 07-02-2018 CASE MANAGEM HNO ID: [id number] Author: Deedee (Rn) MARIUSZ Aviles Service: Care Management Author Type: Registered Nurse Type: Care Mgt Progress Note Filed: 07/02/2018 2:16 PM Note Text: CARE MANAGEMENT PROGRESS NOTE SERVICE DATE: 07/02/2018 SERVICE TIME: 2:15 PM LOS: 7 days Needs Prior to Discharge: Home Care Order Disch plan: Home with family assist and VNS SIGNATURE: Deedee Aviles RN PATIENT NAME: Krystian Child DATE: July 02, 2018 TIME: 2:15 PM PAGER/CONTACT #: [phone] Normal [facility] CHEST 1 VIEWon 07-02-2018 CHEST 1 VIEW Performed at [facility] APPROVED BY: Talha Oconnell MD EXAMINATION: CHEST RADIOGRAPH (SINGLE VIEW AP PORTABLE UPRIGHT) Clinical History: Post-operative / post-procedure assessment, asymptomatic. M: [id number]_4 Comparison: AP chest 07/01/2018 13:38. RESULT: Lines, tubes, and devices: Right IJ central venous catheter and left chest tube in stable position. Interval removal of endotracheal tube. Lungs and pleura: Small left apical pneumothorax with pleural separation measuring approximately 9 mm not visualized on the prior exam. Small right pneumothorax at the inferolateral right lung base versus a skin fold. Minimal subsegmental atelectasis in the lung bases. Cardiomediastinal silhouette: Stable Other: IMPRESSION: Small left-sided pneumothorax. Possible small right-sided pneumothorax versus a skinfold. Follow-up suggested. Interval removal of endotracheal tube. COMMUNICATION: Communicated with: Nurse Schwartz in the CVICU on 07/02/2018 at 07:57. Normal [facility] CONSULT PROGon 07-02-2018 Protein mass conc HNO ID: [id number] Author: Raji Denis) Isabell Service: Critical Care Author Type: Physician Type: Consult Progress Note Filed: 07/02/2018 12:31 PM Note Text: ICU - PROGRESS NOTE SERVICE DATE: 07/02/2018 SERVICE TIME: 12:20 PM Admission Date: 06/25/2018 AGE: [age] year old LOS: 7 days Subjective REASON FOR ICU ADMISSION: S/P Surgery No specific complains Objective VITAL SIGNS (last 24hrs min/max): Temp Av.1 ?C (98.7 ?F) Min: 35.9 ?C (96.6 ?F) Max: 38 ?C (100.4 ?F) Pulse Av.6 Min: 69 Max: 90 Arterial BP 1 Min: 96/41 Max: 131/55 Cuff No Data Recorded Pain Score: 7/10 Vital signs reviewed. BP 147/71 Pulse 90 Temp (Src) 98.6 (Oral) Resp 29 Ht 5' 10 (1.78m) Wt 233 lb 4 oz (105.8kg) SpO2 95% BMI 33.47 kg/(m2). Temp (24hrs), Av.1 ?C (98.7 ?F), Min:35.9 ?C (96.6 ?F), Max:38 ?C (100.4 ?F) NET FLUID BALANCE Intake/Output Summary (Last 24 hours) at 07/02/18 1220 Last data filed at 07/02/18 1100 Gross per 24 hour Intake 4761.6 ml Output 1859 ml Net 2902.6 ml MEDICATIONS Current Facility-Administered Medications: morphine 2-4 mg injection 2-4 mg INTRAVENOUS q 2 H PRN dextrose 50% in water 25 mL syringe 12.5 g INTRAVENOUS PRN aspirin 162 mg chewable tab(s) 162 mg ORAL DAILY potassium chloride iv piggyback 20 mEq/100 mL 20 mEq INTRAVENOUS PRN magnesium sulfate in water 2 g in sterile water 50 ml 2 g INTRAVENOUS PRN(NO DISPENSE) acetaminophen 650 mg tab(s) (TYLENOL) 650 mg ORAL q 6 H PRN enoxaparin 40 mg injection (LOVENOX) 40 mg SUBCUTANEOUS DAILY NaCl 0.9% iv infusion 50 mL/hr INTRAVENOUS CONTINUOUS albuterol 2.5 mg /3 mL (0.083 %) 2.5 mg (PROVENTIL) 2.5 mg INHALATION q 2 H PRN ceFAZolin iv piggyback 2 g in D5W (iso-osmotic) 100 mL (ANCEF) 2 g INTRAVENOUS q 6 HR ondansetron (PF) 4 mg injection (ZOFRAN) 4 mg INTRAVENOUS q 6 H PRN oxyCODONE-acetaminophen 5-325 mg 1-2 tablet (PERCOCET) 1-2 tablet ORAL q 4 H PRN PHENYLephrine iv infusion 10 mg in NaCl 0.9% 250 mL (EMMA-SYNEPHRINE) 0-100 mcg/min INTRAVENOUS CONTINUOUS Lines, Drains, and Airways Line Central Line Double Lumen 0735 -- days Peripheral Double Lumen 06/25/18 1600 Admission to Hospital Left Antecubital 20 Gauge 6 days Arterial Line 07/01/18 0734 Arterial Line Left Radial 1 day Central Line Quadruple Lumen 07/01/18 0751 Non-tunneled Right Neck 1 day Peripheral 07/01/18 0841 Right Hand 16 Gauge 1 day Drain Chest Tube 07/01/18 0913 Left Pleural 28 Fr Tube #1 1 day Chest Tube 07/01/18 0913 Midline Mediastinal 32 Fr Tube #2 1 day Indwelling Urinary Catheter 07/01/18 0740 Temperature Monitoring 16 Fr 1 day PHYSICAL EXAM PERFORMED: Constitutional: Sitting in chair, appears comfortable HEENT: NCAT, pupils reactive Cardiovascular: Regular rhythm Respiratory: Reduced breath sounds bilat %FIO2 Min: 50 Max: 50 Abdomen: Soft and Nontender Extremities: Edema- No, Peripheral pulses present Neurologic: Awake, oriented, Alert, Follows commands and Moving all extremities Respiratory/Nursing Documentation: O2 Therapy: Nasal Cannula (07/02/18 0800) Invasive Ventilator Mode: Continuous Positive Airway Pressure;Pressure Support Ventilation (07/01/181441) Set Ventilator Respiratory Rate (BPM): 0 (07/01/181441) Total Respiratory Rate (BPM): 12 (07/01/181441) Tidal Volume Set (mL): 0 (07/01/181441) Exhaled Tidal Volume (mL): 680 (07/01/181441) Minute Volume (L): 10.7 (07/01/181441) Peak Inspiratory Pressure (cm H2O): 15 (07/01/181441) PEEP/CPAP (cm H2O): 5 (07/01/181441) HEMODYNAMIC DATA: Reviewed NUTRITION: Enteral Feeds: Yes Heart Healthy DATA: Diagnostic tests reviewed for today's visit, films/specimens were personally reviewed by me: Most recent labs and imaging results. LABS: Recent Labs 07/02/18 0415 07/01/18 1314 WBC 12.65* 14.01* RBC 3.77* 3.58* HB 12.0* 11.5* HCT 35.9* 33.7* MCV 95.2 94.1 PLT 180 129* GLUC 107* 120* BUN 21* 19* CREAT 1.02 1.15 NA 144 141 K 4.4 4.1 CHLOR 115* 111* CO2 22 22 CA 7.4* 8.8 PTSEC -- 11.7 APTT -- 30.6 INR -- 1.14 MG 2.1 2.8* ABG: Recent Labs 07/01/18 1314 07/01/18 1157 07/01/18 1130 PH 7.324* 7.349* 7.351 PO2 136.5* 281.0* 286.0* PCO2 42.1 -- -- Assessment/Plan IMPRESSION: ? 72 year old male presented with: ? CAD s/p CABG x 4 07/01/2018 Acute respiratory insufficiency post operative, on mechanical ventilator, liberated 07/01/2018, sating high 90s on 3L O2 Leukocytosis, reactive PLAN: Wean supplemental O2 as able, target sats > 92% Incentive spirometry Encourage OOB Rest per CTS Will follow peripherally Discussed with staff/patient/family SIGNATURE: Raji Whyte MD PATIENT NAME: Krystian Child DATE: July 02, 2018 TIME: 12:20 PM Normal [facility] ECG COMPLETEon 07-02-2018 ECG COMPLETE NAME : KRYSTIAN CHILD PID : [id number] : 1945 Gender : Male Race : ORD : [id number] Procedure Date : Jul 02 2018 05:31:14 Edit Date : Jul 02 2018 09:01:07 Diagnosis:SINUS RHYTHM WITH PREMATURE ATRIAL COMPLEXES IN A PATTERN OF BIGEMINY POSSIBLE INFERIOR INFARCT , AGE UNDETERMINED LATERAL INJURY PATTERN ACUTE MN / STEMI ABNORMAL ECG WHEN COMPARED WITH ECG OF 01-JUL-2018 13:14, BORDERLINE CRITERIA FOR INFERIOR INFARCT ARE NOW PRESENT ST ELEVATION NOW PRESENT IN LATERAL LEADS Confirmed by MD JOSI, LUBA ([id number]) on 07/02/2018 9:01:05 AM Ventricular Rate : 77 BPM Atrial Rate : 77 BPM P-R Interval : 162 ms QRS Duration : 102 ms Q-T Interval : 390 ms QTC Calculation(Bezet) : 441 ms P [place] : 15 degrees R [place] : 7 degrees T [place] : 4 degrees Test Reason : Post-OP Location : 6 : [place] [id number] Overread By : MD PRATER SERGEY Edited By : MD PRATER SERGEY Referred By : CHIN STUBBS Acquired by : YAMILE ADDISON Normal [facility] Hemogramon 07-02-2018 Erythrocyte distribution width Ratio (RBC) 13.4 % Normal 11.6-14.4 [facility] Comment on above: Performed By: #### L IPD2 #### [place] [address] Hematocrit Volume Fraction (Bld) 35.9 % Low 40.1-51.0 [facility] Comment on above: Performed By: #### L IPD2 #### [facility] [address] [place] [address] Hemoglobin mass conc (Bld) 12.0 g/dL Low 13.7-17.5 [facility] Comment on above: Performed By: #### L IPD2 #### [facility] [address] [place] [address] MCH Entitic mass (RBC) 31.8 pg Normal 25.7-32.2 [facility] Comment on above: Performed By: #### L IPD2 #### [facility] [address] [place] [address] MCHC mass conc (RBC) 33.4 % Normal 32.3-36.5 [facility] Comment on above: Performed By: #### L IPD2 #### [place] [address] MCV Entitic volume (RBC) 95.2 fL Normal 83.2-95.6 [facility] Comment on above: Performed By: #### L IPD2 #### [place] [address] Platelet mean volume Entitic volume (Bld) 11.5 fL Normal 8.7-12.0 [facility] Comment on above: Performed By: #### L IPD2 #### [place] [address] Platelets #/vol (Bld) 180 thou/cmm Normal 141-365 [facility] Comment on above: Performed By: #### L IPD2 #### [facility] [address] [place] [address] RBC #/vol (Bld) 3.77 mil/cmm Low 4.63-6.08 [facility] Comment on above: Performed By: #### L IPD2 #### [place] [address] RDW SD 46.8 fl High 36.1-45.8 [facility] Comment on above: Performed By: #### L IPD2 #### [facility] [address] [place], [place] [address] WBC #/vol (Bld) 12.65 thou/cmm High 4.23-9.07 [facility] Comment on above: Performed By: #### L IPD2 #### [facility] [address] [place], [place] [address] Magnesium Bloodon 07-02-2018 Magnesium mass conc 2.1 mg/dL Normal 1.6-2.6 [facility] Comment on above: Performed By: #### L IPD2 #### [facility] [address] [place], [place] [address] NUTRITIONon 07-02-2018 NUTRITION HNO ID: [id number] Author: Marina Sales) STEPH Dennis Service: Nutrition Therapy Author Type: Registered Dietitian Type: Nutrition Filed: 07/02/2018 2:28 PM Note Text: NUTRITION THERAPY INITIAL ASSESSMENT SERVICE DATE: 07/02/2018 SERVICE TIME: 9:48 AM RECOMMENDED MALNUTRITION DIAGNOSIS: NO MALNUTRITION IDENTIFIED NUTRITION CARE PLAN: Problem, Etiology and Signs/Symptoms: Increased nutrient needs kcal/protein related to increased metabolic demand from surgery as evidenced by CABG 06/28/18 Intervention: Continue on Heart Healthy diet Supplement po intake as needed Coordination of Care: Nursing Monitor and Evaluation: Goal: Meet >75% of estimated needs Monitor fluid/electrolyte balance Monitor labs, I/Os, vital signs, weight Discharge Nutrition Recommendations: To be determined Chart reviewed for length of stay Per HPI: 72 year old male who presents from outside hospital. He had cardiac cath and was noted to have triple vessel disease. He was then transferred here for further work up and possible CABG. He denied any chest pain. No nausea or vomiting. Underwent CABG on 07/01/18 ACTIVE PROBLEM LIST Hemorrhage of Gastrointestinal Tract, Unspecified Internal Hemorrhoids Without Mention of Complication Chronic Rhinitis Other and Unspecified Hyperlipidemia Unspecified Essential Hypertension Mitral Valve Disorders(424.0) SKIN CARCINOMA NECK Personal History of Other Malignant Neoplasm of Skin Other Diseases of Vocal Cords Esophageal Reflux Cad (Coronary Artery Disease) PAST MEDICAL HISTORY Diagnosis Date - Chronic rhinitis - Family history of malignant neoplasm of gastrointestinal tract family history of colon cancer - Hemorrhage of gastrointestinal tract, unspecified - Impotence of organic origin - Internal hemorrhoids without mention of complication - Mitral valve disorders(424.0) - Other dyspnea and respiratory abnormality - SCC (squamous cell carcinoma) PAST SURGICAL HISTORY Procedure Laterality Date - APPENDECTOMY - COLONOSCOP W/ OR W/O BRSH SPEC Colonoscopy - COLONOSCOP W/ OR W/O BRSH SPEC 10/31/05 Repeat in - MOHS 1 STAGE T/A/L 07/09 - REM LESION NEC,HAND,SCAL<0.5CM 09/23/06 Exc. right mid neck lesion Social History Marital status: Spouse name: Years of education: Number of children: Social History Main Topics Smoking status: Former Smoker Packs/day: 0.00 Years: 0.00 Quit date: 09/30/1979 Smokeless tobacco: Never Used Alcohol use: No Drug use: No Current Diet Order DIET HEART HEALTHY Order Specific Question: Heart Healthy Answer: 2 GM SODIUM (<200 MG CHOL / LOW SAT FAT) Lines and Drains: Central Line Double Lumen 0735 (Active) Central Line Quadruple Lumen 07/01/18 0751 Non-tunneled Right Neck (Active) Peripheral 07/01/18 0841 Right Hand 16 Gauge (Active) Peripheral Double Lumen 06/25/18 1600 Admission to Hospital Left Antecubital 20 Gauge (Active) Indwelling Urinary Catheter 07/01/18 0740 Temperature Monitoring 16 Fr (Active) Chest Tube 07/01/18 0913 Left Pleural 28 Fr Tube #1 (Active) Chest Tube 07/01/18 0913 Midline Mediastinal 32 Fr Tube #2 (Active) Nutritional Intake Prior to Admission: >75% estimated energy needs over the past >1 month(s), reports good po intake prior to admission, my is a great cook. Reports good po over the past 5 days prior to OR. GI symptoms: none Nutrition Abdominal Exam:, abdomen is nondistended and bowel sounds are normal, per clinical documentation ANTHROPOMETRICS Height: 177.8 cm (5' 10) Admission Weight: 100.2 kg (220 lb 12.8 oz) Current Weight: 105.8 kg (233 lb 4 oz) Body mass index is 33.47 kg/m?. class 1 obesity Weight has not changed significantly Last Wt 07/02/18 : 105.8 kg (233 lb 4 oz) 10/23/14 : 104 kg (229 lb 4.5 oz) 07/12/12 : 104.8 kg (231 lb) 02/10/11 : 102.1 kg (225 lb) 10/24/10 : 103.4 kg (228 lb) 10/12/08 : 95.3 kg (210 lb) 12/21/07 : 104.3 kg (230 lb) 12/15/07 : 102.1 kg (225 lb) 12/02/07 : 105.7 kg (233 lb) 11/29/07 : 108 kg (238 lb) 11/22/07 : 105.2 kg (232 lb) 11/11/07 : 108 kg (238 lb) 08/25/07 : 108.4 kg (239 lb) 08/18/07 : 108.9 kg (240 lb) 09/23/05 : 99.8 kg (220 lb) 09/22/05 : 104.8 kg (231 lb) 08/13/05 : 106.6 kg (235 lb) [place] Body Weight: 75.5kg Dosing Weight: 105.8 kg Resting Metabolic Rate: 1809 Estimated kilocalorie needs: 8626-3041 kilocalories determined by 25-30 kcal/kg Estimated protein needs: 91-113 grams determined by 1.2-1.5 g/kg Dosing weight Estimated fluid needs: 2861-6250 milliliters based on 1 mL per kcal NUTRITION FOCUSED PHYSICAL EXAM: Subcutaneous Fat Loss Orbital No fat loss Triceps No fat loss Mid-axillary at the iliac crest No fat loss Muscle Loss Locations: Temporalis No muscle loss Pectoralis No muscle loss Deltoids No muscle loss Interosseous No muscle loss Latissimus dorsi, trapezius No muscle loss Quadriceps No muscle loss Gastrocnemius No muscle loss Potential micronutrient deficiency revealed in: No deficiency identified Edema: No Ascites: No Assessment of Functional Status: Functional capacity is unrelated to nutrition status Temperature Max in 24 hours: Temp (24hrs), Av.1 ?C (98.7 ?F), Min:35.9 ?C (96.6 ?F), Max:38 ?C (100.4 ?F) BP 147/71 Pulse 79 Temp 37.1 ?C (98.8 ?F) (Oral) Resp 24 Ht 177.8 cm (5' 10) Wt 105.8 kg (233 lb 4 oz) SpO2 97% BMI 33.47 kg/m? Recent Labs 07/02/18 0415 GLUC 107* BUN 21* CREAT 1.02 NA 144 K 4.4 CHLOR 115* CO2 22 HB 12.0* HCT 35.9* WBC 12.65* MG 2.1 Potential Signs of Inflammation: leukocytosis, hyperglycemia, hyperthermia, imaging studies, acute post-operative and chronic condition ALLERGIES No Known Allergies Current Facility-Administered Medications: insulin regular iv infusion 100 units in NaCl 0.9% 100 mL - AK CARD SURG NOMOGRAM 0-12 Units/hr INTRAVENOUS CONTINUOUS insulin regular human iv bolus 10 Units 10 Units INTRAVENOUS PRN dextrose 50% in water 25 mL syringe 12.5 g INTRAVENOUS PRN aspirin 162 mg chewable tab(s) 162 mg ORAL DAILY potassium chloride iv piggyback 20 mEq/100 mL 20 mEq INTRAVENOUS PRN magnesium sulfate in water 2 g in sterile water 50 ml 2 g INTRAVENOUS PRN(NO DISPENSE) acetaminophen 650 mg tab(s) (TYLENOL) 650 mg ORAL q 6 H PRN enoxaparin 40 mg injection (LOVENOX) 40 mg SUBCUTANEOUS DAILY NaCl 0.9% iv infusion 50 mL/hr INTRAVENOUS CONTINUOUS albuterol 2.5 mg /3 mL (0.083 %) 2.5 mg (PROVENTIL) 2.5 mg INHALATION q 2 H PRN ceFAZolin iv piggyback 2 g in D5W (iso-osmotic) 100 mL (ANCEF) 2 g INTRAVENOUS q 6 HR pantoprazole 40 mg injection (PROTONIX) 40 mg INTRAVENOUS DAILY (6 AM) ondansetron (PF) 4 mg injection (ZOFRAN) 4 mg INTRAVENOUS q 6 H PRN oxyCODONE-acetaminophen 5-325 mg 1-2 tablet (PERCOCET) 1-2 tablet ORAL q 4 H PRN fentaNYL 50 mcg/mL 25-50 mcg injection (SUBLIMAZE) 25-50 mcg INTRAVENOUS q 1 H PRN PHENYLephrine iv infusion 10 mg in NaCl 0.9% 250 mL (EMMA-SYNEPHRINE) 0-100 mcg/min INTRAVENOUS CONTINUOUS Date 07/01/18 07 - 07/02/18 0659 07/02/18 07 - 07/03/18 0659 Shift 1689-4734 6940-1162 6300-0709 24 Hour Total 5377-5585 3138-1039 6697-6246 24 Hour Total I N T A K E PO 100 100 100 100 PO 100 100 100 100 IV 1066.6 2895 3961.6 NS 0.9% 750 1955 2705 Cefazolin IV 200 200 Regular Insulin IV 7.6 14 21.6 EPINEPHrine Volume 0 0 Dexmedetomidine IV 71 198 269 Aminocaproic Acid IV 127 127 Phenylephrine Volume 111 528 639 Shift Total 1066.6 2995 4061.6 100 100 O U T P U T Urine 176 762 282 7012 24 24 Output ( Indwelling Urinary Catheter 07/01/18 0740 Temperature Monitoring 16 Fr) 176 927 697 2927 24 24 Chest Tube 110 110 200 420 80 80 Chest Tube Output (Chest Tube 07/01/18 0913 Left Pleural 28 Fr Tube #1) 110 110 200 420 80 80 Shift Total 286 520 963 7608 104 104 Weight (kg) 98.9 98.9 105.8 105.8 105.8 105.8 105.8 105.8 Surgical Incision 07/01/18 1300 Chest - Midsternal (Active) Dressing Status None: Open to Air 07/02/2018 8:00 AM Incision Closures Topical Skin Adhesive 07/02/2018 8:00 AM Drainage Description None 07/02/2018 8:00 AM Drainage Amount None 07/02/2018 8:00 AM Edges Intact 07/02/2018 8:00 AM Hematoma No 07/02/2018 8:00 AM Number of days: 0 Surgical Incision 07/01/18 1300 Saphenous Vein Graft Left (Active) Dressing Status None: Open to Air 07/02/2018 8:00 AM Incision Closures Topical Skin Adhesive 07/02/2018 8:00 AM Drainage Description None 07/02/2018 8:00 AM Drainage Amount None 07/02/2018 8:00 AM Edges Intact 07/02/2018 8:00 AM Hematoma No 07/02/2018 8:00 AM Number of days: 0 Vitamin and Mineral Labs in the past year:No results for input(s): CHROMIUM, COPPER, MANGANESE, SELENIUM, VITAMINA, VITB1, VITB2, VITB6, B12, METHYLMAL, VITD25, VITAMINE, VITAK, ZINC, TIBC, FE, ROOPA in the last 8784 hours. MNT Billing Type: Initial Assess/15 min 3 units SIGNATURE: Marina Dennis RD, CARLY PATIENT NAME: Krystian Child DATE: July 02, 2018 TIME: 9:48 AM PAGER: [phone] Normal [facility] PROGRESSon 07-02-2018 Protein mass conc HNO ID: [id number] Author: Mike Allan (Pa) Service: Cardiovascular Surgery Author Type: Physician Integrated Circuit [employer]ator Type: Progress Notes Filed: 07/02/2018 11:17 AM Note Text: CARDIOTHORACIC SURGERY POSTOP PROGRESS NOTE SERVICE DATE: 07/02/2018 SERVICE TIME: 10:23 AM Subjective S/P SURGERY: Procedure(s) (LRB): BYPASS GRAFT ARTERY CORONARY ON-PUMP, FOUR CORONARY ARTERIAL GRAFTS, TYLER - LAD, SVG - DCA, OM, RCA WITH ENDOVASCULAR VEIN HARVESTING (N/A) DATE OF SURGERY: 07/01/2018 POSTOP DAY #1 LOS: 7 INTERVAL EVENTS / PERTINENT ROS: Patient seen and examined. S/p extubation 07/01. Currently on 40 mcg of Emma. Patient feels ok. Objective Admission Weight: 100.2 kg (220 lb 12.8 oz) BP 147/71 Pulse 74 Temp 37.1 ?C (98.8 ?F) (Oral) Resp 21 Ht 177.8 cm (5' 10) Wt 105.8 kg (233 lb 4 oz) SpO2 97% BMI 33.47 kg/m? Body surface area is 2.29 meters squared. Min/Max/Average Temperature AND Blood Pressure: Temp (24hrs), Av.1 ?C (98.7 ?F), Min:35.9 ?C (96.6 ?F), Max:38 ?C (100.4 ?F) Intake/Output Summary (Last 24 hours) at 07/02/18 1022 Last data filed at 07/02/18 1000 Gross per 24 hour Intake 4761.6 ml Output 1779 ml Net 2982.6 ml TELEMETRY: sinus arrhythmia PHYSICAL EXAM: General Appearance: Pt in chair with NC on NAD. Skin: Midsternal incision, SVG AND subxiphoid dressing dry AND intact. Warm and dry Head/Eyes: EOM's intact and NCAT Neck: RIJ in place C/D/I Lungs: Crackles left base. No wheeze. CT to suction with sero/sang out. No air leak Heart: Irregular rhytm, regular rate. Pacing wires intact. Peripheral Vascular/Arteries: dorsalis pedis 1+ and radial 2+ Abdomen: soft, non-tender and bowel sounds present Neurologic/Psychiatric: alert Extremities: no edema Lines, Drains, and Airways Line Central Line Double Lumen 0735 -- days Peripheral Double Lumen 06/25/18 1600 Admission to Hospital Left Antecubital 20 Gauge 6 days Arterial Line 07/01/18 0734 Arterial Line Left Radial 1 day Central Line Quadruple Lumen 07/01/18 0751 Non-tunneled Right Neck 1 day Peripheral 07/01/18 0841 Right Hand 16 Gauge 1 day Drain Chest Tube 07/01/18 0913 Left Pleural 28 Fr Tube #1 1 day Chest Tube 07/01/18 0913 Midline Mediastinal 32 Fr Tube #2 1 day Indwelling Urinary Catheter 07/01/18 0740 Temperature Monitoring 16 Fr 1 day DATA: Diagnostic tests reviewed for today's visit: Chest X-RAY: Portable AP film. Under-penetrated with patient rotated TURKMEN and lordotic. s/p ET tube removal. RIJ in place that terminates at the cavoatrial junction. Left costophrenic blunting. Recent Labs 07/02/18 0415 07/01/18 1314 07/01/18 1157 RBC 3.77* 3.58* -- WBC 12.65* 14.01* -- HB 12.0* 11.5* -- HCT 35.9* 33.7* 26* PLT 180 129* -- INR -- 1.14 -- APTT -- 30.6 -- NA 144 141 140 K 4.4 4.1 4.2 CHLOR 115* 111* -- CO2 22 22 -- BUN 21* 19* -- CREAT 1.02 1.15 -- GLUC 107* 120* -- CA 7.4* 8.8 -- MG 2.1 2.8* -- ANION 11 12 -- Recent Labs 07/01/18 1314 07/01/18 1157 07/01/18 1130 07/01/18 1101 PH 7.324* 7.349* 7.351 7.373 PCO2 42.1 -- -- -- PO2 136.5* 281.0* 286.0* 291.0* BE -4.4 -- -- -- HCO3 -- 24.3 21.6* 23.1 Assessment/Plan CAD -s/p CABG x 4 (tyler-lad; svg-diag, om, rca; evh) -POD#1 -Medical management with ASA 162, atorvastatin 40 -Emma precludes beta travis -Pain control with morphine, percocet, tylenol -Post operative vest support -IS/ Ambulation/ PT -Perioperative ABX -Remove arterial line/ anguiano -Continue CT to suction -Maintain central line -Bowel regimen starting 07/03 -Cardiac rehab Anticipated post operative respiratory insufficiency -Wean O2 per protocol -IS -Ambulation -Aerosols Leukocytosis -Likely reactive form OR -Afebrile -Monitor VTE PPX -SCD/ Lovenox GI PPX -PPI IV >> PO Diet -Heart healthy Discussed with Dr. Villanueva and CVICU team Tests/Labs Ordered: 1. CBC 2. BMP 3. CXR SIGNATURE: Mike Allan PA-C PATIENT NAME: Krystian Child DATE: July 02, 2018 TIME: 10:22 AM PAGER/CONTACT #: [phone] [phone] Normal [facility] THERAPY NTon 07-02-2018 THERAPY NT HNO ID: [id number] Author: Christina (Pt) SABRINA Kenyon Service: Physical Therapy Author Type: Physical Therapist Type: Therapy (PT/OT/Speech/Resp) Filed: 07/02/2018 3:37 PM Note Text: Physical Therapy Evaluation SERVICE DATE: 07/02/2018 SERVICE TIME: 1421 to 1445 ROOM: [id number] Recommended Discharge Disposition: Home PT Recommended Discharge Disposition Comments: I anticipate the patient to continue to improve and achieve goals Anticipated Discharge Needs: Physical Assist at Home;Supervision at Home;Equipment Physical Assist at Home for: Cleaning;Laundry;Meals;Saf ety Supervision at Home due to: Other: See Comment (surgery/sternal precautions) Recommended Discharge Equipment: Wheeled Walker PT Recommendations to Nursing: Ambulate with device;To bathroom;In halls;Transfer to/from chair;OOB for Meals;Utilize bed in chair position;Sit at edge of bed;With assist of 1 person Device: Wheeled Walker PT 6 Clicks Score: 18 Precautions/Activity Restrictions: Sternal;Lines/Tubes/Drains Precaution/Activity Restriction Comments: IV, Chest Tube, 3L O2 via NC Isolation Type: None ASSESSMENT : This patient was admitted as transfer due to abnormal cardiac cath and required CABGx4 07/01/18, has the past medical history of Mitral valve stensis impacting current functional level, as well as the social factors complicating the discharge of stairs to enter house. This patient is below baseline functioning of ambulating without device and living very active lifestyle and will benefit from continued skilled therapy in the hospital for treatment of the following body systems/impairments: cardiopulmonary, musculoskeletal and neuromuscualar. Patient Disposition at Start of Session: OOB in Chair;Call Pierce in Reach;SCDs Patient Disposition at End of Session: OOB in Chair;Call Pierce in Reach;SCDs Tolerated Full Session Physical Therapy Problem List: Education Deficit;Pain;Safety Deficits;Decreased Range Of Motion;Decreased Strength;Functional Mobility Impairment;Balance Impaired Patient /Caregiver Goals: Go Home Goals for Plan of Care: Rolling with: Contact Guard Assistance Transfer supine to/from sit with: Contact Guard Assistance Transfer sit to/from stand with: Supervision Ambulate with: Supervision Distance: 250 Device: Wheeled Walker Goal: able to state/follow sternal precautions statically/dynamically Goal: perform general stretching/strengthening exercises Rehab Potential: Good PLAN: Treatment Frequency (times per week): 5 (2-5) Current admission Treatment Interventions: Education;Energy Conservation Training;Joint Mobility;Strengthening;Fun ctional Mobility Training;Balance Training;Neuromuscular Re-education Plan of Care developed with: Patient TREATMENT INTERVENTIONS: Therapy Diagnosis: Reduced mobility-other;Unsteadines s on feet;Abnormalities of gait and mobility-other Interventions Provided: Evaluation;Gait Training (93245) $ Evaluation-Moderate (45879) Billed Units: 1 unit Gait Training (13109) Treatment Minutes: 8 1 unit Skilled Intervention(s): Instruction in sit to stand technique with proper hand placement and body positioning at edge of bed/chair, Instruction in stand to sit technique with LE's touching chair/bed and reaching back for surface, Instruction in sequencing, gait pattern, Instruction in correction of gait deviations, Instruction in WB precautions and Instruction in use of equipment, cues for sequence and pattern Education with sternal precautions including use of the sternal vest with functional mobility and avoiding pushing/pulling with bilateral upper extremities with sit to stand transfers. Education/discussion on fall prevention during dynamic mobility and ambulation. Importance of keeping head upright to observe environment and safely navigate room/hallway while using cardiac cart Total Timed Code Treatment Minutes: 8 Total Treatment Time (minutes): 23 FUNCTIONAL G CODE: PT 6 Clicks Score: 18 (07/02/18 6134) Based on clinical assessment and the score on the 6 Clicks Functional Assessment Tool, the G code and corresponding severity modifiers are documented above. SUBJECTIVE: Current Hospital Course: Chart reviewed; . S/p 07/01/18 CABGx3 Reason for Physical Therapy Consult : Eval Relevant Past Medical History: Mitral valve stenosis Patient Report: Up in chair. States his L lung hurts worse than his chest. Agreeable to PT Home Environment Patient Lives With: Spouse Assistance Available: 24 Hour () Entry To Home: Stairs;With Rail Number Of Stairs Into Home: 4 Number Of Stairs To Bed/Bath: 0 Tub/Shower Type: tub-shower Laundry: Pt reports completes Prior Functional Level: Within Functional Limits Prior Functional Level Comments: Pt reports independent in all ADLs and IADLs, OBJECTIVE: Range of Motion: WFL Except;ROM Limitation Comments ROM Limitation Comments: B UE limited to cardiac/sternal precautions Strength: WFL Except;Strength Limitation Comments Strength Limitation Comments: not assessed; @ least 3+/5 observed during mobility CURRENT FUNCTIONAL STATUS: Current Functional Mobility Assist Level Additional Information Rolling up in chair Supine to Sit Sit to Supine Scooting Sit to Stand Contact Guard Assistance Stand to Sit Contact Guard Assistance Bed to Chair Toilet/Commode Gait Contact Guard Assistance Gait Device: Other: See Comment (cardiac cart) Gait Distance (feet): 45 Stairs Curb Step Car Transfer General Gait Deviations: Arm swing decreased;Chasidy decreased;Step length decreased;Difficulty changing direction/turning;Non-func tional gait speed Balance: Dynamic Standing Dynamic Standing Balance: Contact Guard Assistance -[facility]: 7: Walk 25 feet or more Please see discipline specific clinical documentation flowsheet for complete details for this therapy evaluation/treatment. SIGNATURE: Christina Kenyon PT PATIENT NAME: Krystian Child DATE: July 02, 2018 TIME: 3:33 PM Normal [facility] THERAPY NT HNO ID: [id number] Author: Mona Lorenzor/Darshan Saavedra Service: Occupational Therapy Author Type: Occupational Therapist Type: Therapy (PT/OT/Speech/Resp) Filed: 07/02/2018 2:27 PM Note Text: Occupational Therapy Evaluation SERVICE DATE: 07/02/2018 SERVICE TIME: 1120 to 1148 ROOM: [id number] Recommended Discharge Disposition: Home Anticipated Discharge Needs: Physical Assist at Home;Supervision at Home Physical Assist at Home for: Self Care;Shopping;Transportati on;Safety;Meals;Laundry;Cl eaning (24hr as needed from ) Supervision at Home due to: Decreased safety awareness (24hr as needed for safety during ADLs) OT Recommendations to Nursing: ADL?s in chair;Bedside Commode for Toileting;OOB for meals;Edge of bed ADL?s;Transfer to Chair;With assist of 1 person Equipment: Wheeled Walker OT 6 Clicks Score: 22 Precautions/Activity Restrictions: Sternal;Fall Risk;Lines/Tubes/Drains Precaution/Activity Restriction Comments: IV, Chest Tube, 3L O2 via NC Isolation Type: None ASSESSMENT: Patient presents with CAD s/p CABG x4. Requires skilled OT for decreased activity tolerance, functional mobility, strength, and safety awareness to return to baseline functioning to be able to complete ADLs. Patient Disposition at Start of Session: OOB in Chair;Call Pierce in Reach Patient Disposition at End of Session: OOB in Chair;Call Pierce in Reach;Family Present Tolerance Limited By Fatigue Occupational Therapy Problem List: Safety Deficits;Impaired Self Care;Decreased Activity Tolerance;Decreased Strength;Functional Mobility Impairment Patient /Caregiver Goals: Go Home Goals for Plan of Care: Grooming with: Independent Upper Body Dressing with: Independent Lower Body Dressing with: Supervision Toilet Transfer with: Stand By Assistance Tolerate (minutes of functional activity): 20 Functional Activity with: Supervision Increased Awareness of Cognitive Impairments as Related to ADL's/IADL's: Verbalized;Demonstrated (safety awareness) Rehab Potential: Good PLAN: Treatment Frequency (times per week): 5 (1-5x per week) Current admission Treatment Interventions: Education;Self Care / Home Management;Functional Mobility Training;Strengthening Plan of Care developed with: Patient TREATMENT INTERVENTIONS: Therapy Diagnosis: Reduced mobility-other;Decreased activities of daily living (ADL);Muscle Weakness (generalized);Signs and Symptoms Involving Cognitive Functions and Awareness Interventions Provided: Therapeutic Activity (23678);Evaluation $ Evaluation-Moderate (53325) Billed Units: 1 unit OT Evaluation Moderate Complexity: Occupational Profile - Extended review of patient's medical record completed including patient's physical, cognitive, and psycho-social history (please see current hospital course of evaluation). Occupational Performance - Pt presents with deficits in feeding, grooming, UE bathing/dressing, LE bathing/dressing, functional transfers, functional mobility, decreased safety awareness, decreased insight into deficits Complexity in Clinical Decision Making - The extent of clinical reasoning was moderate, several treatment options present for the patient, need for modification during the evaluation was minimal/moderate, comorbidities affecting occupational performance: SCC, dyspnea, and mitral valve disorders. Therapeutic Activity (36462) Treatment Minutes: 13 1 unit Skilled Intervention(s): Facilitated Pt in completion of functional mobility to increase activity tolerance to be able to complete ADLs. Pt was educated on sternal precautions for safety upon discharge. Pt demo verbal and physical understanding of percautions by restating them and then following them during funtional mobility task. Pt stood from chair with contact guard assist and a cart. Pt walked in hallway with contact guard assist and a cart for 7 minutes. Physical assist was needed to manage line and tubes and for following behind with a chair. Extended time was needed during walk for breaks. Pt was educated on deep breathing technique throughout walk to increase O2. Pt returned to chair with contact guard assist and a cart. Pt was repositioned back in the chair. Pt and spouse were educated on role of OT in acute care and discharge planning. Pt and spouse were receptive to education. Pt left in chair with call light within reach. Total Timed Code Treatment Minutes: 13 Total Treatment Time (minutes): 28 SUBJECTIVE: Current Hospital Course: Chart reviewed; 72 year old male who presented from outside hospital. He had cardiac cath and was noted to have triple vessel disease. He was then transferred here for further work up and possible CABG. He denied any chest pain. Pt had CABG x4 done on 07/01/18. PAST MEDICAL HISTORY Diagnosis Date - Chronic rhinitis - Family history of malignant neoplasm of gastrointestinal tract family history of colon cancer - Hemorrhage of gastrointestinal tract, unspecified - Impotence of organic origin - Internal hemorrhoids without mention of complication - Mitral valve disorders(424.0) - Other dyspnea and respiratory abnormality - SCC (squamous cell carcinoma) PAST SURGICAL HISTORY Procedure Laterality Date - APPENDECTOMY - COLONOSCOP W/ OR W/O [facility] SPEC Colonoscopy - COLONOSCOP W/ OR W/O [facility] SPEC 10/31/05 Repeat in - MOHS 1 STAGE T/A/L 07/09 - REM LESION NEC,HAND,SCAL<0.5CM 09/23/06 Exc. right mid neck lesion Reason for Occupational Therapy Consult: CABG Relevant Past Medical History: SCC, mitral valve stenosis, dyspnea Patient Report: Pt OOB in chair upon entry. Pt agreed to OT assessment. Pt reported 4/10 pain in chest. Pt cooperative throughout OT eval. Home Environment Patient Lives With: Spouse Assistance Available: 24 Hour () Entry To Home: Stairs;With Rail Number Of Stairs Into Home: 4 Number Of Stairs To Bed/Bath: 0 Tub/Shower Type: tub-shower Laundry: Pt reports completes Prior Functional Level: Within Functional Limits Prior Functional Level Comments: Pt reports independent in all ADLs and IADLs, OBJECTIVE: Cognition/Communication Deficits Responsiveness: Alert Follows Commands: 2-step Commands;Cueing Needed Cueing to Follow Commands: Minimum Memory Deficits: Short Term (Minimal impairment) Executive Function Deficits: Safety Awareness;Problem Solving;Sequencing;Judgeme nt Sequencing Deficit: Minimal impairment Judgement Deficit: Minimal impairment Problem Solving Deficit: Minimal impairment Safety Awareness Deficit: Minimal impairment CURRENT FUNCTIONAL STATUS: Current Activities of Daily Living Assist Level Feeding Set Up Grooming Set Up Bathing Upper Body Supervision Bathing Lower Body Minimal Assistance Dressing Upper Body Supervision Dressing Lower Body Minimal Assistance Toileting Supervision Functional Mobility Assist Level Rolling Supine to Sit Sit to Supine Scooting Supervision Sit to Stand Contact Guard Assistance Stand to Sit Contact Guard Assistance Bed to Chair Toilet/Commode Functional Mobility Contact Guard Assistance (Cart) Range of Motion: WFL Except (Not formally tested b/c sternal percautions; WFL during ADLs) Strength: WFL Except (Not formally tested b/c sternal percautions; WFL during ADLs) Balance: Dynamic Standing Dynamic Standing Balance: Supervision Activity Tolerance: Standing Activity Standing Activity: Functional mobility in hallway Standing Activity Tolerance (in minutes): 7 Please see discipline specific clinical documentation flowsheet for complete details for this therapy evaluation/treatment. SIGNATURE: Karina Zimmerman/AN PATIENT NAME: Krystian Child DATE: July 02, 2018 TIME: 12:10 PM I reviewed and agree with the documentation corresponding to this therapy visit. SIGNATURE: Mona Saavedra OTR/L DATE: July 02, 2018 TIME: 2:27 PM Evaluation and/or treatment directly supervised by licensed Occupational Therapist. Normal [facility] ACT Arterial Panel (i-STAT)o n 07-01-2018 [place] ACT ( i-STAT) 125 sec Normal [id number] [facility] Comment on above: Performed By: #### P 14 #### [place] [address] ANES Constantin 07-01-2018 ANES POST HNO ID: [id number] Author: Ousmane Magaña MD Service: Anesthesiology Author Type: Physician Type: Anesthesia PostOp Filed: 07/01/2018 8:26 PM Note Text: POST ANESTHESIA EVALUATION NOTE SERVICE DATE: 07/01/2018 SERVICE TIME: 8:25 PM : 1945 Vitals: 07/01/18 1306 07/01/18 1400 07/01/18 1800 07/01/18 1900 Temp: (!) 35.9 ?C (96.6 ?F) 36 ?C (96.8 ?F) 37.2 ?C (99 ?F) 37.4 ?C (99.3 ?F) 07/01/18 1638 07/01/18 1700 07/01/18 1800 07/01/18 190 Arterial BP 1: 106/47 103/46 106/48 102/46 BP: 07/01/18 1638 07/01/18 1700 07/01/18 1800 07/01/18 190 Pulse: 82 84 87 83 07/01/18 1638 07/01/18 1700 07/01/18 1800 07/01/18 1900 Resp: 18 18 21 17 07/01/18 1638 07/01/18 1700 07/01/18 1800 07/01/18 1900 SpO2: 98% 99% 99% 98% Validated Vital Signs: Yes POST ANES STATUS: No apparent anesthetic complications. The patient is appropriately hydrated with stable respiratory and cardiovascular status. Patient has safe and adequate airway control. The patient has appropriate pain relief and no significant post operative nausea or vomiting. The patient has achieved baseline mental status. Intra-Operative Events: No Significant Anesthesia Events Further assessment by Anesthesia Service: None Other Remarks: SIGNATURE: Ousmane Magaña MD PATIENT NAME: Krystian Child DATE: July 01, 2018 TIME: 8:25 PM PAGER/CONTACT #: [phone] [facility] ANES PREOPon 07-01-2018 ANES PREOP HNO ID: [id number] Author: Jamal Bauer Service: Anesthesiology Author Type: Physician Type: Anesthesia PreOp Filed: 07/01/2018 7:12 AM Note Text: ANESTHESIOLOGY DAY OF SURGERY NOTE SERVICE DATE: 07/01/2018 SERVICE TIME: 7:00 AM : 1945 Procedure(s) (LRB): BYPASS GRAFT ARTERY CORONARY ON-PUMP THREE CORONARY ARTERIAL GRAFTS (N/A) Surgeon(s): Oscar Villanueva Estimated body mass index is 31.29 kg/m? as calculated from the following: Height as of this encounter: 177.8 cm (5' 10). Weight as of this encounter: 98.9 kg (218 lb 1.6 oz). Most recent hematocrit and potassium results: Hematocrit 40.6 06/26/2018 Potassium 4.0 06/26/2018 ANES DOS/PREOP NOTE: Vitals: 06/30/18 2100 07/01/18 0025 07/01/18 0529 07/01/18 0632 BP: 162/66 133/67 139/80 147/71 Pulse: 82 69 67 70 Resp: 18 18 18 16 Temp: 36.8 ?C (98.2 ?F) 36.7 ?C (98.1 ?F) 36.7 ?C (98.1 ?F) 36.8 ?C (98.2 ?F) TempSrc: Oral Oral Oral Temporal Artery SpO2: 95% 99% 95% 96% Weight: 98.9 kg (218 lb 1.6 oz) Height: ACTIVE PROBLEM LIST Hemorrhage of Gastrointestinal Tract, Unspecified Internal Hemorrhoids Without Mention of Complication Chronic Rhinitis Other and Unspecified Hyperlipidemia Unspecified Essential Hypertension Mitral Valve Disorders(424.0) SKIN CARCINOMA NECK Personal History of Other Malignant Neoplasm of Skin Other Diseases of Vocal Cords Esophageal Reflux Cad (Coronary Artery Disease) PAST MEDICAL HISTORY Diagnosis Date - Chronic rhinitis - Family history of malignant neoplasm of gastrointestinal tract family history of colon cancer - Hemorrhage of gastrointestinal tract, unspecified - Impotence of organic origin - Internal hemorrhoids without mention of complication - Mitral valve disorders(424.0) - Other dyspnea and respiratory abnormality - SCC (squamous cell carcinoma) PAST SURGICAL HISTORY Procedure Laterality Date - APPENDECTOMY - COLONOSCOP W/ OR W/O BRSH SPEC Colonoscopy - COLONOSCOP W/ OR W/O BRSH SPEC 10/31/05 Repeat in - MOHS 1 STAGE T/A/L 07/09 - REM LESION NEC,HAND,SCAL<0.5CM 09/23/06 Exc. right mid neck lesion FAMILY HISTORY Problem Relation Age of Onset - Colon Cancer Father - Heart Brother - Heart Brother - Heart Mother - Diabetes Mother - Hypertension Mother - Stroke Mother - Stroke Brother - Alcohol/Drug Brother Social History: Social History Substance Use Topics - Smoking status: Former Smoker Quit date: 09/30/1979 - Smokeless tobacco: Never Used - Alcohol use No No current facility-administered medications on file prior to encounter. No current outpatient prescriptions on file prior to encounter. Current Facility-Administered Medications: [MAR Hold due to Transfer] heparin 3,000 Units in NaCl 0.9% 500 mL irrigation 3,000 Units IRRIGATION ONCE Oscar A Lahorra [MAR Hold due to Transfer] PHENYLephrine 20 mg in NaCl 0.9% 250 mL (NEOSYNEPHRINE) 25-300 mcg/min INTRAVENOUS ONCE Oscar A Lahorra [MAR Hold due to Transfer] aminocaproic acid 10 g in NaCl 0.9% 250 mL (AMicAR) 1 g/hr INTRAVENOUS ONCE Oscar A Lahorra [MAR Hold due to Transfer] dexmedetomidine 400 mcg in NaCl 0.9% 100 mL (PRECEDEX) 0.2-0.7 mcg/kg/hr INTRAVENOUS ONCE Oscar A Lahorra [MAR Hold due to Transfer] EPINEPHrine 4 mg in NaCl 0.9% 250 mL 0.5-10 mcg/min INTRAVENOUS ONCE Oscar A Lahorra [MAR Hold due to Transfer] insulin regular iv infusion 100 units in NaCl 0.9% 100 mL - AK CARD SURG NOMOGRAM 0-12 Units/hr INTRAVENOUS ONCE Oscar Villanueva [JUL Hold due to Transfer] nitroglycerin 100 mg in D5W 250 mL 5-20 mcg/min INTRAVENOUS ONCE Oscar Hanna azar [JUL Hold due to Transfer] NORepinephrine 16 mg in NaCl 0.9% 250 mL (LEVOPHED) 0-20 mcg/min INTRAVENOUS ONCE Oscar Hanna [JUL Hold due to Transfer] PHENYLephrine iv infusion 10 mg in NaCl 0.9% 250 mL (EMMA-SYNEPHRINE) 0-100 mcg/min INTRAVENOUS ONCE Oscar Hanna azar [JUL Hold due to Transfer] dextrose 50 g, insulin regular human 10 Units, potassium chloride 80 mEq, lidocaine (PF) 20 mg/mL (2 %) 100 mg, magnesium sulfate 4 g in electrolyte-a (PLASMA-LYTE A) 1,000 mL solution MISCELLANEOUS ONCE Oscar Hanna [JUL Hold due to Transfer] dextrose 25 g, insulin regular human 5 Units, potassium chloride 20 mEq, lidocaine (PF) 20 mg/mL (2 %) 50 mg, magnesium sulfate 2 g in electrolyte-a (PLASMA-LYTE A) 500 mL solution MISCELLANEOUS ONCE Oscar Hanna krystyna [JUL Hold due to Transfer] NaCl 0.9% 2-10 mL 2-10 mL INTRAVENOUS ONCE Diogenes Caal ceFAZolin iv piggyback 2 g in D5W (iso-osmotic) 100 mL (ANCEF) 2 g INTRAVENOUS ONCE Anant Ureña (Pa) [JUL Hold due to Transfer] melatonin 3 mg tab(s) 3 mg ORAL HS PRN Braeden Ofungwu [JUL Hold due to Transfer] acetaminophen 650 mg tab(s) (TYLENOL) 650 mg ORAL q 6 H PRN Braeden Ofungwu [JUL Hold due to Transfer] docusate sodium 100 mg cap(s) (COLACE) 100 mg ORAL BID PRN Braeden Ofungwu [JUL Hold due to Transfer] atorvastatin 80 mg tab(s) (LIPITOR) 80 mg ORAL AT BEDTIME Braeden Ofungwu 80 mg at 06/30/18 2142 [JUL Hold due to Transfer] metoprolol tartrate (short acting) 25 mg tab(s) (LOPRESSOR) 25 mg ORAL q 12 H Braeden Ofungwu 25 mg at 07/01/18 0530 [MAR Hold due to Transfer] enoxaparin 40 mg injection (LOVENOX) 40 mg SUBCUTANEOUS q 24 H Braeden August 40 mg at 06/30/18 0923 [MAR Hold due to Transfer] aspirin 81 mg chewable tab(s) 81 mg ORAL DAILY Orlando Jacobs 81 mg at 07/01/18 0530 Allergies: ALLERGIES No Known Allergies DOS EXAM: Adequate NPO Status: Yes Anesthetic Risks, Benefits, Alternatives, Personnel and Consent Discussed: Yes Patient agrees to proceed: Yes Previous Anesthesia: No history of adverse event Airway Assessment: MP 3; Neck ROM: Full ROM without neurologic symptoms; Airway Evaluation: Short Neck, Thick neck and Pacheco Present, Good jaw subluxation Symptoms of Sleep Apnea: Age over 50 (72 year old), Neck circumference > 15.75 inches and Male gender Dentition: Removable partial: upper Additional Physical Exam: Lungs: Patient health status unchanged since recent history and physical. See history and physical for exam findings. Cardiac: Patient health status unchanged since recent history and physical. See history and physical for exam findings. Additional Pertinent Findings: N/A Blood Products: Will accept Blood/Blood Products Anesthetic Plan: General Anesthetic Monitoring: Standard ASA Monitors Pain Management Plan: Parenteral or Oral ASA Class: 4 Other Medical Problems: CAD - cardiac catheterization. 06/25/2018 - plavix load given for 3 days prior to this catheterization Per cardiac surgery note, Cath showed - Distal L main disease, LAD, and PHY THERAPIST of RCA GERD Recent Lab Values WBC 6.57 06/26/2018 HGB 14.0 06/26/2018 Hematocrit 40.6 06/26/2018 Platelet Count 162 06/26/2018 INR 1.06 06/27/2018 Sodium 139 06/26/2018 Potassium 4.0 06/26/2018 Chloride 108 06/26/2018 CO2 26 06/26/2018 BUN 19 06/26/2018 Creatinine 1.03 06/26/2018 Glucose 97 06/26/2018 Calcium 8.2 06/26/2018 Magnesium 2.1 06/26/2018 No results found for this basename: GlucoseMeter Antibody Screen Date Value Ref Range Status 06/29/2018 NEGATIVE Final Chronic Beta Travis medication administered within 24 hours: Yes I have interviewed and examined the patient. I have reviewed the medical record and/or the pre-anesthesia evaluation, pertinent labs, and test results. Significant changes in the patient's condition since the History and Physical, not otherwise documented in primary service progress notes: No This contains updated information obtained within 48 hours of Surgery/Procedure. SIGNATURE: Jamal Bauer MD PATIENT NAME: Krystian Child DATE: July 01, 2018 TIME: 7:00 AM CSN: [id number] TTE (06/26/2018) CONCLUSIONS: - Technically difficult exam due to Limited Subcostals. - Exam indication: Acute chest pain with suspected MN - The left ventricle is normal in size. There is no left ventricular hypertrophy. Left ventricular systolic function is normal. EF = 55 ? 5% (visual est.) Grade I left ventricular diastolic dysfunction. Possible mild inferior wall hypokinesis - The right ventricle is normal in size. Right ventricular systolic function is normal. - The visualized aorta is borderline dilated with a maximal dimension of 3.8 cm. - Mild MR. - Mild AR. - The patient has not had a prior CC echocardiographic exam for comparison Normal [facility] Activated PTTon 07-01-2018 aPTT Coag time (Bld) 30.6 s Normal 23.0-32.4 [facility] Comment on above: Result Comment: Note : New Reference Range Unfractionated Heparin Therapeutic Ranges: Standard Heparin Nomogram: 53 to 78 seconds (anti-Xa level of 0.3 to 0.7 U/mL) Low Dose/ACS Nomogram: 49 to 67 seconds (anti-Xa level of 0.2 to 0.5 U/mL) Stroke Treatment Nomogram: 49 to 67 seconds (anti-Xa level of 0.2 to 0.5 U/mL) Note: The APTT therapeutic range has been determined for the current lot of laboratory APTT reagent in use throughout the [facility]. Performed By: #### L IPD2 #### [place] [address] BRIEF OP NOTon 07-01-2018 BRIEF OP NOT HNO ID: [id number] Author: Oscar Villanueva Service: Cardiac Surgery Author Type: Physician Type: Brief Op Note Filed: 07/01/2018 1:07 PM Note Text: CARDIOTHORACIC BRIEF OP NOTE LOG ID: [id number] SURGERY/PROCEDURE DATE: 07/01/2018 INCISION/PROCEDURE START TIME: 8:27 AM INCISION CLOSE/PROCEDURE END TIME: 12:56 PM SURGEON(S) AND GRID TRIMMER(S): Surgeon(s) and Role: * Oscar Villanueva - Primary Physician Integrated Circuit Fabricator: Anant Mendoza) Water Quality Specialist: Julia () SA Doris; Joe () SA Alie Water Quality Specialist (Relief): Zofia Drake) SA Dakota PROCEDURES AND ANESTHESIA: Procedure(s) and Anesthesia Type: * BYPASS GRAFT ARTERY CORONARY ON-PUMP, FOUR CORONARY ARTERIAL GRAFTS, TYLER - LAD, SVG - DCA, OM, RCA WITH ENDOVASCULAR VEIN HARVESTING - General Great Saphenous Vein, Left , Percutaneous endoscopic Internal Thoracic Artery, Left , Open cabg x 4 (tyler-lad; svg-diag, om, rca; evh) ANESTHESIA: General BRIEF FINDINGS: normal LV pre and post CABG PREOPERATIVE DIAGNOSIS: coronary artery disease POSTOPERATIVE DIAGNOSIS: coronary artery disease ESTIMATED BLOOD LOSS: 250 ml SPECIMENS: None COMPLICATIONS: None SIGNATURE: Oscar Villanueva MD PATIENT NAME: Krystian Child DATE: July 01, 2018 TIME: 1:06 PM PAGER/CONTACT #: [phone] Normal [facility] Basic Panelon 07-01-2018 Creatinine mass conc 1.15 mg/dL Normal 0.67-1.17 [facility] Comment on above: Performed By: #### L IPD2 #### [place] [address] Anion gap molar conc 12 mmol/L Normal 8-16 [facility] Comment on above: Performed By: #### L IPD2 #### [place] [address] CO2 molar conc 22 mmol/L Normal 21-32 [facility] Comment on above: Performed By: #### L IPD2 #### [place] [address] Glucose mass conc 120 mg/dL High 70-99 [facility] Comment on above: Performed By: #### L IPD2 #### [place] [address] Urea nitrogen mass conc 19 mg/dL High 7-18 [facility] Comment on above: Performed By: #### L IPD2 #### [facility] [address], [place] [address] Calcium mass conc 8.8 mg/dL Normal 8.5-10.1 [facility] Comment on above: Performed By: #### L IPD2 #### [facility] [address] [place], [place] [address] Chloride molar conc 111 mmol/L High 98-107 [facility] Comment on above: Performed By: #### L IPD2 #### [facility] [address] [place] [address] Potassium molar conc 4.1 mmol/L Normal 3.5-5.1 [facility] Comment on above: Performed By: #### L IPD2 #### [facility] [address] [place] [address] Sodium molar conc 141 mmol/L Normal 136-145 [facility] Comment on above: Performed By: #### L IPD2 #### [facility] [address] [place] [address] Blood Gas Arterialon 019 FIO2 100 % Normal [facility] Comment on above: Performed By: #### P 14 #### [facility] [address] [place] [address] Base Excess -4.4 mEq/L Normal -2.5 to 2.5 [facility] Comment on above: Performed By: #### P 14 #### [facility] [address] [place] [address] HCO3 molar conc (Bld) 21.4 mmol/L Low 22.0-26.0 [facility] Comment on above: Performed By: #### P 14 #### [facility] [address] [place], [place] [address] O2% Sat Arterial 98.4 % High 95.0-98.0 [facility] Comment on above: Performed By: #### P 14 #### [facility] [address] [place], [place] [address] PCO2 Arterial 42.1 mm Hg Normal 36.0-46.0 [facility] Comment on above: Performed By: #### P 14 #### [facility] [address] [place] [address] pH Arterial 7.324 Low 7.350-7.450 [facility] Comment on above: Performed By: #### P 14 #### [facility] [address] [place] [address] PO2 Arterial 136.5 mm Hg High 85.0-96.0 [facility] Comment on above: Performed By: #### P 14 #### [facility] [address] [place] [address] CG8 Arterial Panel (i-STAT)o n 07-01-2018 Base Excess (i-STAT) -1.0 mmol/L Normal -2.0 to 3.0 [facility] Comment on above: Performed By: #### P 14 #### [facility] [address] [place] [address] Glucose mass conc 155 mg/dL High 70-99 [facility] Comment on above: Performed By: #### P 14 #### [facility] [address] [place] [address] HCO3 molar conc (Bld) 24.3 mmol/L Normal 22.0-26.0 [facility] Comment on above: Performed By: #### P 14 #### [facility] [address] [place] [address] Hematocrit Volume Fraction (Bld) 26 %PCV Low 38-51 [facility] Comment on above: Performed By: #### P 14 #### [facility] [address] [place] [address] Hemoglobin mass conc (Bld) 8.8 g/dL Low 12.0-17.0 [facility] Comment on above: Performed By: #### P 14 #### [facility] [address] [place] [address] Ionized Calcium (iSTAT) 5.9 mg/dL High 4.5-5.3 [facility] Comment on above: Performed By: #### P 14 #### [facility] [address] [place] [address] O2% Sat. (i-STAT) 100.0 % High 95.0-98.0 [facility] Comment on above: Performed By: #### P 14 #### [facility] [address] [place], [place] [address] Oxygen ppres (Bld) 281.0 mm Hg High 80.0-105.0 [facility] Comment on above: Performed By: #### P 14 #### [facility] [address] [place], [place] [address] PCO2 (i-STAT) 44.1 mm Hg Normal 35.0-45.0 [facility] Comment on above: Performed By: #### P 14 #### [facility] [address] [place], [place] [address] pH (Bld) 7.349 [pH] Low 7.350-7.450 [facility] Comment on above: Performed By: #### P 14 #### [facility] [address] [place], [place] [address] Potassium molar conc 4.2 mmol/L Normal 3.5-4.9 [facility] Comment on above: Performed By: #### P 14 #### [facility] [address], [place] [address] Sodium molar conc 140 mmol/L Normal 138-146 [facility] Comment on above: Performed By: #### P 14 #### [facility] [address] [place], [place] [address] Total CO2 (i-STAT) 26 mmol/L Normal 23-27 [facility] Comment on above: Performed By: #### P 14 #### [facility] [address] [place], [place] [address] CG8 Venous Panel (i-STAT)on 07-01-2018 Base Excess (i-STAT) -3.0 mmol/L Normal -2.0 to 3.0 [facility] Comment on above: Performed By: #### P 14 #### [facility] [address] [place], [place] [address] Glucose mass conc 165 mg/dL High 70-99 [facility] Comment on above: Performed By: #### P 14 #### [facility] [address] [place], [place] [address] HCO3 molar conc (Bld) 22.8 mmol/L Low 23.0-28.0 [facility] Comment on above: Performed By: #### P 14 #### [facility] [address] [place] [address] Hematocrit Volume Fraction (Bld) 28 %PCV Low 38-51 [facility] Comment on above: Performed By: #### P 14 #### [facility] [address] [place] [address] Hemoglobin mass conc (Bld) 9.5 g/dL Low 12.0-17.0 [facility] Comment on above: Performed By: #### P 14 #### [facility] [address] [place] [address] Ionized Calcium (iSTAT) 4.2 mg/dL Low 4.5-5.3 [facility] Comment on above: Performed By: #### P 14 #### [place] [address] O2% Sat. (i-STAT) 79.0 % Normal 35.0-85.0 [facility] Comment on above: Performed By: #### P 14 #### [facility] [address] [place] [address] Oxygen ppres (Bld) 47.0 mm Hg Normal 20.0-50.0 [facility] Comment on above: Performed By: #### P 14 #### [place] [address] PCO2 (i-STAT) 45.3 mm Hg Normal 41.0-51.0 [facility] Comment on above: Performed By: #### P 14 #### [facility] [address] [place], [place] [address] pH (Bld) 7.311 [pH] Normal 7.310-7.410 [facility] Comment on above: Performed By: #### P 14 #### [facility] [address] [place] [address] Potassium molar conc 5.3 mmol/L High 3.5-4.9 [facility] Comment on above: Performed By: #### P 14 #### [facility] [address] [place] [address] Sodium molar conc 137 mmol/L Low 138-146 [facility] Comment on above: Performed By: #### P 14 #### [facility] [address] [place] [address] Total CO2 (i-STAT) 24 mmol/L Normal 24-29 [facility] Comment on above: Performed By: #### P 14 #### [facility] [address] [place] [address] CHEST 1 VIEWon 07-01-2018 CHEST 1 VIEW Performed at [facility] APPROVED BY: REBEKAH SALGADO MD X-RAY CHEST (1 VIEW) History: Post-operative / post-procedure assessment, asymptomatic. Comparison: X-ray chest 06/26/2018 RESULT: 1. Lines, Tubes, and Devices: Right IJ approach central venous catheter. Endotracheal tube with tip at the level of the sternoclavicular joints. 2. Lungs and Pleura: No pneumothorax. No focal consolidation. No pleural effusion. 3. Cardiomediastinal silhouette: Normal cardiomediastinal contours. 4. Other: - IMPRESSION: Endotracheal tube with tip at the level of the sternoclavicular joints on semi-upright position. This may need to be advanced. No acute radiographic abnormality. Normal [facility] CONSULTon 07-01-2018 CONSULT HNO ID: [id number] Author: Raji Denis) Isabell Service: Critical Care Author Type: Physician Type: Consults Filed: 07/01/2018 2:57 PM Note Text: CRITICAL CARE CONSULT NOTE SERVICE DATE: 07/01/2018 SERVICE TIME: 2:14 PM REASON FOR CONSULT: s/p surgery REQUESTING PHYSICIAN: Kareem? ADMITTING PROVIDER: Braeden August SERVICE DATE: 07/01/2018 SERVICE TIME: 2:14 PM Admission Date: 06/25/2018 AGE: [age] year old LOS: 6 days Subjective 72 year old male with angina, workup revealed multivessel disease and was admitted to [facility] for CABG. He underwent CABG 07/01/2018. ROS: Not possible 2/2 patient condition PAST MEDICAL HISTORY Diagnosis Date - Chronic rhinitis - Family history of malignant neoplasm of gastrointestinal tract family history of colon cancer - Hemorrhage of gastrointestinal tract, unspecified - Impotence of organic origin - Internal hemorrhoids without mention of complication - Mitral valve disorders(424.0) - Other dyspnea and respiratory abnormality - SCC (squamous cell carcinoma) PAST SURGICAL HISTORY Procedure Laterality Date - APPENDECTOMY - COLONOSCOP W/ OR W/O BRS SPEC Colonoscopy - COLONOSCOP W/ OR W/O BRSH SPEC 10/31/05 Repeat in - MOHS 1 STAGE T/A/L 07/09 - REM LESION NEC,HAND,SCAL<0.5CM 09/23/06 Exc. right mid neck lesion Social History Marital status: Spouse name: Years of education: Number of children: Social History Main Topics Smoking status: Former Smoker Packs/day: 0.00 Years: 0.00 Quit date: 09/30/1979 Smokeless tobacco: Never Used Alcohol use: No Drug use: No FAMILY HISTORY Problem Relation Age of Onset - Colon Cancer Father - Heart Brother - Heart Brother - Heart Mother - Diabetes Mother - Hypertension Mother - Stroke Mother - Stroke Brother - Alcohol/Drug Brother Objective VITAL SIGNS (last 24hrs min/max): Temp Av.5 ?C (97.7 ?F) Min: 35.9 ?C (96.6 ?F) Max: 36.8 ?C (98.2 ?F) Pulse Av.4 Min: 66 Max: 87 Arterial BP 1 Min: 112/49 Max: 129/54 Cuff BP Min: 133/67 Max: 162/66 Pain Score: Pt. Sleeping (Do Not Use With NIGHT COORDINATOR Meds) Vital signs reviewed. BP 147/71 Pulse 87 Temp (Src) 96.8 (Anguiano Thermistor) Resp 23 Ht 5' 10 (1.78m) Wt 218 lb 1.6 oz (98.9kg) SpO2 100% BMI 31.29 kg/(m2). Temp (24hrs), Av.5 ?C (97.7 ?F), Min:35.9 ?C (96.6 ?F), Max:36.8 ?C (98.2 ?F) NET FLUID BALANCE Intake/Output Summary (Last 24 hours) at 07/01/18 1414 Last data filed at 07/01/18 1400 Gross per 24 hour Intake 0 ml Output 286 ml Net -286 ml MEDICATIONS Current Facility-Administered Medications: aminocaproic acid 10 g in NaCl 0.9% 250 mL (AMicAR) 1 g/hr INTRAVENOUS ONCE insulin regular iv infusion 100 units in NaCl 0.9% 100 mL - [place] CARD SURG NOMOGRAM 0-12 Units/hr INTRAVENOUS CONTINUOUS insulin regular human iv bolus 10 Units 10 Units INTRAVENOUS PRN dextrose 50% in water 25 mL syringe 12.5 g INTRAVENOUS PRN potassium chloride iv piggyback 20 mEq/100 mL 20 mEq INTRAVENOUS PRN magnesium sulfate in water 2 g in sterile water 50 ml 2 g INTRAVENOUS PRN(NO DISPENSE) acetaminophen 650 mg tab(s) (TYLENOL) 650 mg ORAL q 6 H PRN enoxaparin 40 mg injection (LOVENOX) 40 mg SUBCUTANEOUS DAILY NaCl 0.9% iv infusion 50 mL/hr INTRAVENOUS CONTINUOUS albuterol 2.5 mg /3 mL (0.083 %) 2.5 mg (PROVENTIL) 2.5 mg INHALATION q 2 H PRN EPINEPHrine 4 mg in NaCl 0.9% 250 mL 0.5-10 mcg/min INTRAVENOUS CONTINUOUS ceFAZolin iv piggyback 2 g in D5W (iso-osmotic) 100 mL (ANCEF) 2 g INTRAVENOUS q 6 HR ondansetron (PF) 4 mg injection (ZOFRAN) 4 mg INTRAVENOUS q 6 H PRN midazolam (PF) 2 mg injection (VERSED) 2 mg INTRAVENOUS q 6 H PRN oxyCODONE-acetaminophen 5-325 mg 1-2 tablet (PERCOCET) 1-2 tablet ORAL q 4 H PRN fentaNYL 50 mcg/mL 25-50 mcg injection (SUBLIMAZE) 25-50 mcg INTRAVENOUS q 1 H PRN NaCl 0.9% 250 mL iv bolus 250 mL INTRAVENOUS PRN dexmedetomidine 400 mcg in NaCl 0.9% 100 mL (PRECEDEX) 0.2-0.7 mcg/kg/hr INTRAVENOUS CONTINUOUS Lines, Drains, and Airways Line Central Line Double Lumen 0735 -- days Peripheral Double Lumen 06/25/18 1600 Admission to Hospital Left Antecubital 20 Gauge 5 days Arterial Line 07/01/18 0734 Arterial Line Left Radial less than 1 day Central Line Quadruple Lumen 07/01/18 0751 Non-tunneled Right Neck less than 1 day Peripheral 07/01/18 0841 Right Hand 16 Gauge less than 1 day Drain Chest Tube 07/01/18 0913 Left Pleural 28 Fr Tube #1 less than 1 day Chest Tube 07/01/18 0913 Midline Mediastinal 32 Fr Tube #2 less than 1 day GI Feed/Drain 07/01/18 1300 Oral Gastric Oral less than 1 day Indwelling Urinary Catheter 07/01/18 0740 Temperature Monitoring 16 Fr less than 1 day Airway Airway Endotracheal Tube 07/01/18 less than 1 day PHYSICAL EXAM PERFORMED: Constitutional: Lying on bed, mechanically ventilated Cardiovascular: Regular rhythm Respiratory: Equal breath sounds bilaterally, midline sternal insertion and chest tubes noted %FIO2 Min: 50 Max: 50 Abdomen: Soft and Nontender Extremities: Edema- No, Peripheral pulses present Neurologic: Sedated Respiratory/Nursing Documentation: O2 Therapy: Ventilator (07/01/18 1400) Invasive Ventilator Mode: Pressure Support Ventilation;Synchronized Intermittent Mandatory Ventilation (07/01/18 130) Set Ventilator Respiratory Rate (BPM): 12 (07/01/18 1306) Total Respiratory Rate (BPM): 13 (07/01/18 130) Tidal Volume Set (mL): 550 (07/01/18 130) Exhaled Tidal Volume (mL): 582 (07/01/18 1306) Minute Volume (L): 6.02 (07/01/18 1306) Peak Inspiratory Pressure (cm H2O): 17 (07/01/18 130) PEEP/CPAP (cm H2O): 5 (07/01/18 130) HEMODYNAMIC DATA: Reviewed NUTRITION: Enteral Feeds: No NPO DATA: Diagnostic tests reviewed for today's visit, films/specimens were personally reviewed by me: Most recent labs and imaging results. LABS: Recent Labs 07/01/18 1314 07/01/18 1157 WBC 14.01* -- RBC 3.58* -- HB 11.5* -- HCT 33.7* 26* MCV 94.1 -- PLT 129* -- NA -- 140 K -- 4.2 PTSEC 11.7 -- APTT 30.6 -- INR 1.14 -- ABG: Recent Labs 07/01/18 1314 07/01/18 1157 07/01/18 1130 PH 7.324* 7.349* 7.351 PO2 136.5* 281.0* 286.0* PCO2 42.1 -- -- Assessment/Plan IMPRESSION: Critical Care Documentation: The patient has the following organ/system impairment(s): Respiratory insufficiency, Post operative 72 year old male presented with: CAD s/p CABG x 4 07/01/2018 Acute respiratory insufficiency post operative, on mechanical ventilator Leukocytosis, reactive PLAN: Continue mechanical ventilation, SAT and SBT later today Rest per CTS This patient has a high probability of sudden, clinically significant deterioration, which requires the highest level of physician preparedness to intervene urgently. I managed/supervised life or organ supporting interventions that required frequent physician assessment. I devoted my full attention to the direct care of this patient for the amount of time indicated below. Time I spent with family or surrogate(s) is included only if the patient was incapable of providing the necessary information or participating in medical decision making. Time devoted to teaching is not included. Discussed with staff Time spent providing critical care services: 30 minutes excluding procedures. SIGNATURE: Raji Whyte MD PATIENT NAME: Krystian Child DATE: July 01, 2018 TIME: 2:14 PM Normal [facility] ECG COMPLETEon 07-01-2018 ECG COMPLETE NAME : KRYSTIAN CHILD PID : [id number] : 1945 Gender : Male Race : ORD : [id number] Procedure Date : Jul 01 2018 13:14:39 Edit Date : Jul 02 2018 08:58:11 Diagnosis:SINUS RHYTHM WITH PREMATURE ATRIAL COMPLEXES OTHERWISE NORMAL ECG NO PREVIOUS ECGS AVAILABLE Confirmed by MD PRATER SERGEY ([id number]) on 07/02/2018 8:58:01 AM Ventricular Rate : 73 BPM Atrial Rate : 73 BPM P-R Interval : 184 ms QRS Duration : 102 ms Q-T Interval : 428 ms QTC Calculation(Bezet) : 471 ms P [place] : 54 degrees R [place] : 49 degrees T [place] : 23 degrees Test Reason : Post-OP Location : 6 : [place] [address] Overread By : MD PRATER SERGEY Edited By : MD PRATER SERGEY Referred By : CHIN STUBBS Acquired by : , Normal [facility] Hemogramon 07-01-2018 Erythrocyte distribution width Ratio (RBC) 13.1 % Normal 11.6-14.4 [facility] Comment on above: Performed By: #### P 14 #### [address] [place] [address] Hematocrit Volume Fraction (Bld) 33.7 % Low 40.1-51.0 [facility] Comment on above: Performed By: #### P 14 #### [facility] [address] [place] [address] Hemoglobin mass conc (Bld) 11.5 g/dL Low 13.7-17.5 [facility] Comment on above: Performed By: #### P 14 #### [facility] [address] [place] [address] MCH Entitic mass (RBC) 32.1 pg Normal 25.7-32.2 [facility] Comment on above: Performed By: #### P 14 #### [facility] [address] [place] [address] MCHC mass conc (RBC) 34.1 % Normal 32.3-36.5 [facility] Comment on above: Performed By: #### P 14 #### [facility] [address] [place] [address] MCV Entitic volume (RBC) 94.1 fL Normal 83.2-95.6 [facility] Comment on above: Performed By: #### P 14 #### [facility] [address] [place] [address] Platelet mean volume Entitic volume (Bld) 11.1 fL Normal 8.7-12.0 [facility] Comment on above: Performed By: #### P 14 #### [facility] [address] [place] [address] Platelets #/vol (Bld) 129 thou/cmm Low 141-365 [facility] Comment on above: Performed By: #### P 14 #### [facility] [address] [place] [address] RBC #/vol (Bld) 3.58 mil/cmm Low 4.63-6.08 [facility] Comment on above: Performed By: #### P 14 #### [facility] [address] [place] [address] RDW SD 44.6 fl Normal 36.1-45.8 [facility] Comment on above: Performed By: #### P 14 #### [facility] [address] [place], [place] [address] WBC #/vol (Bld) 14.01 thou/cmm High 4.23-9.07 [facility] Comment on above: Performed By: #### P 14 #### [facility] [address] [place], [place] [address] Magnesium Bloodon 07-01-2018 Magnesium mass conc 2.8 mg/dL High 1.6-2.6 [facility] Comment on above: Performed By: #### L IPD2 #### [facility] [address] [place] [id number] OPERATIVE NOon 07-01-2018 OPERATIVE NO HNO ID: [id number] Author: Oscar Villanueva Service: Cardiac Surgery Author Type: Physician Type: Operative Report Filed: 07/02/2018 8:25 AM Note Text: [facility] - Operative Report 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 SEX: M PATIENT TYPE: I HOSP SVC: INT LOCATION: [id number] ATTENDING PHYSICIAN: OSCAR VILLANUEVA CSN NUMBER: [id number] DATE OF SURGERY/PROCEDURE: 07/01/2018 INCISION/PROCEDURE START TIME: 8:27 AM INCISION CLOSE/PROCEDURE END TIME: 12:56 PM PREOPERATIVE DIAGNOSIS: Multi-vessel coronary disease, anginal symptoms. POSTOPERATIVE DIAGNOSIS: Multi-vessel coronary disease, anginal symptoms. SURGEON: Oscar Villanueva MD GRID TRIMMER: 1. Ms. Duncan. 2. Ms. George. 3. Ms. Ureña. SURGERY/PROCEDURE: Coronary bypass graft x4 with left internal mammary artery and left anterior descending artery; reverse saphenous vein graft to the diagonal branch, obtuse marginal branch, and right coronary; with endoscopic vein harvesting. ANESTHESIA: General COMPLICATIONS: None. EBL: 250 mL. FINDINGS: Included normal left ventricular function pre and postop. INDICATIONS: This is a 72-year-old man with anginal symptoms with the rather minimal activity. The stress test was positive for possible inferior ischemia. He had cardiac catheterization revealing severe multivessel disease including a 50% left main lesion and 80% lesion involving the proximal LAD and the origin of a large diagonal branch; approximately 60% lesion of the mid RCA and mid circumflex artery; and an occluded right coronary was filled via [id number] collaterals. Left ventricular function was well preserved. We recommended myocardial revascularization. The procedure; the intended benefits, potential complications, and staff indications were discussed with him at length. All questions were answered. He understood and he consented proceed. DESCRIPTION OF PROCEDURE: A preoperative huddle was performed. He was brought to the operating room and placed on the operative table in supine position. Central venous and radial artery access were obtained. He was given general anesthesia and intubated. A ENE probe was placed. A Anguiano catheter was placed. He was prepped and draped sterilely. He received perioperative IV antibiotics, beta-blockade, aspirin, and IV heparin. Preop ENE confirmed normal LV function. A time-out was then performed and a median sternotomy was made. The left internal mammary artery was harvested as a skeletonized graft. There was excellent pulsatile flow and simultaneously portions of the left greater saphenous vein were harvested in endoscopic fashion, and harvest sites closed in layers with absorbable suture. The sternal hearing care professional was placed in the wound. A pericardial well was made. The ascending aorta was free of any palpable atherosclerotic disease. LV function overall appeared well preserved. He was heparinized and cannulated for cardiopulmonary bypass via the aorta and right atrium. After an adequate ACT was achieved, cardiopulmonary bypass was initiated and ventilation was stopped. The aortic root was vented. A retrograde cardioplegia cannula was placed to coronary sinus. The aortic cross-clamp was then applied. The heart was arrested with 1500 mL of combined antegrade and retrograde cold blood cardioplegia, and thereafter a bolus of cardioplegia were administered every 15-20 minutes. The aforementioned distal anastomoses were completed with running 7-0 Prolene suture end-to-side. Proximal anastomoses were constructed with running 6-0 Prolene suture end-to-side. The aortic cross clamp was then removed, and the heart regained sinus rhythm. Ventilation was resumed. We weaned from bypass, decannulated, and reversed heparin with protamine. ENE confirmed normal LV function. Flow probe analysis revealed excellent flows in all grafts. The right atrial pacing leads were placed and secured to the skin. The left pleural tube and mediastinal tube were placed and secured to the skin. Hemostasis was then obtained. The sternum was closed with wires. Pectoral fascia, subcutaneous tissue, and skin were closed in layers with absorbable suture. Dry sterile dressings were applied. Sponge counts and needle counts were correct. The patient was then returned to CVICU in good condition after a sign-out. MD JESUS RosalesL:[id number] /[id number] Normal [facility] PROGRESSon 07-01-2018 Protein mass conc HNO ID: [id number] Author: Mike Allan (Pa) Service: Cardiovascular Surgery Author Type: Physician Integrated Circuit Fabricator Type: Progress Notes Filed: 07/01/2018 2:33 PM Note Text: CARDIOTHORACICSURGERY PROGRESS NOTE SERVICE DATE: 07/01/2018 SERVICE TIME: 2:32 PM Pt immediately transferred to CVICU s/p CABG x 4. Orders and goals discussed with Dr. Villanueva. Medication drips include insulin, emma, epi, precedex. Perioperative ABX with ancef. Labs and imaging pending. Will correct electrolytes per protocol. Formal progress note to follow tomorrow. SIGNATURE: Mike Allan PA-C PATIENT NAME: Krystian Child DATE: July 01, 2018 TIME: 2:32 PM PAGER/CONTACT #: [phone] ETX#[id number] Normal [facility] Protimeon 07-01-2018 INR Coag RelTime (PPP) 1.14 {INR} Normal 0.90-1.30 [facility] Comment on above: Result Comment: Note : Reference Range Change Vitamin K Antagonist (VKA) Therapeutic Range: INR 2 to 3 (Target INR of 2.5) Note: For patients treated with VKA drugs, such as warfarin, the [place] [employer] 2012 Guideline recommends a therapeutic INR range of 2 to 3 (target INR of 2.5). This recommendation includes high-risk patients with antiphospholipid syndrome with previous arterial or venous thromboembolism, current-generation mechanical or bioprosthetic aortic heart valve replacement. VKA Therapeutic Range for some Mechanical Valve Replacement: INR 2.5 to 3.5 (Target INR of 3) Note: Patients with mechanical aortic valve replacement and additional risk factors for thromboembolic events (atrial fibrillation, previous thromboembolism, LV dysfunction, hypercoagulable conditions) or an older generation mechanical AVR (i.e., ball in-Cage) or any mechanical MVR should have a INR therapeutic range of 2.5 to 3.5 target INR of 3). Kem GH, et al. Chest 2012; 141:7S-47S Chepe RA et al. JAC 2017; 70: 252-289 Performed By: #### L IPD2 #### [facility] [address] [place] [address] Prothrombin time (PT) Coag time (PPP) 11.7 s Normal 9.7-13.0 [facility] Comment on above: Performed By: #### L IPD2 #### [facility] [address] [place] [address] RBC Productson 07-01-2018 Xmatch Unit 1 see below Normal [facility] Comment on above: Result Comment: Comp atible Performed By: #### P 14 #### [place] [address] Xmatch Unit 2 see below Normal [facility] Comment on above: Result Comment: Comp atible Performed By: #### P 14 #### [place] [address] CASE MANAGEMon 06-30-2018 CASE MANAGEM HNO ID: [id number] Author: Keisha Montoya) MARIUSZ Tamayo Service: Care Management Author Type: Registered Nurse Type: Care Mgt Progress Note Filed: 06/30/2018 10:36 AM Note Text: CARE MANAGEMENT PROGRESS NOTE SERVICE DATE: 06/30/2018 SERVICE TIME: 10:35 AM LOS: 5 days Chart reviewed. Plan CABG. Anticipate home with [facility]- [facility] able to accept post op. Will follow. SIGNATURE: Keisha Tamayo RN PATIENT NAME: Krystian Child DATE: June 30, 2018 TIME: 10:35 AM PAGER/CONTACT #: [phone] [facility] PLAN OF CAREon 06-30-2018 PLAN OF CARE HNO ID: [id number] Author: Zechariah Pedroza APRN.CNP Service: Cardiovascular Surgery Author Type: Nurse Practitioner Type: Plan of Care Filed: 06/30/2018 10:23 AM Note Text: CARDIOTHORACIC SURGERY PLAN OF CARE SERVICE DATE: June 30, 2018 SERVICE TIME: 10:23 AM Visited patient today. Offered the cardiac surgery binder. I went over post-op recovery expectations (ICU and [id number]) with patient. As well as went over briefly with the content from the cardiac surgery book. Patient is also offered IS for pre-op lung function optimization. Pre-op check list reviewed: most workups are completed. Pre-op preparation orders placed, including: NPO, meds(BB+ASA), CHG bath, IS orders. MRSA result reviewed and treatment order reviewed, blood products ordered x2. Questions and concerns are addressed. Family at bedside. Patient has no questions at this point. Zechariah Pedroza APRN.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 CLAIMS AIDE [facility] PROGRESSon 06-30-2018 Protein mass conc HNO ID: [id number] Author: Wallace Barrientos Service: Hospital Medicine Author Type: Physician Type: Progress Notes Filed: 06/30/2018 4:42 PM Note Text: INPATIENT PROGRESS NOTE CHIEF COMPLAINT: CP INTERVAL HPI: no new complaints. Scheduled for CABG in am. PHYSICAL EXAM: BP 145/63 Pulse 66 Temp (Src) 97.9 (Oral) Resp 18 Ht 5' 10 (1.78m) Wt 220 lb 12.8 oz (100.2kg) SpO2 100% BMI 31.68 kg/(m2). GENERAL: Alert, no distress, cooperative LUNGS: Lungs clear to auscultation, Good diaphragmatic excursion CARDIAC: Normal S1 and S2; no rubs, murmurs, or gallops ABDOMEN: Abdomen soft, non-tender, BS normal, No masses or organomegaly EXTREMITIES: no edema DATA: Diagnostic tests reviewed for today's visit: CBC, Coags, BMP, Mg, Phos Invalid input(s): ICA Assessment/Plan 1. CAD (coronary artery disease): With triple vessel disease Awaiting CABG in am ? 2. Hypertension essential: Stable ? 3. Hyperlipidemia: On statin. ?4. DVT PPX- lovenox. Hold tomorrow SIGNATURE: Wallace Barrientos MD PATIENT NAME: Krystian Child DATE: June 30, 2018 TIME: 4:40 PM PAGER: Porfirio [facility] PROGRESSon 06-29-2018 Protein mass conc HNO ID: [id number] Author: Braeden August Service: Hospital Medicine Author Type: Physician Type: Progress Notes Filed: 06/29/2018 9:35 AM Note Text: DEPARTMENT OF HOSPITAL MEDICINE PROGRESS NOTE SERVICE DATE: 06/29/2018 SERVICE TIME: 9:32 AM Hospital Medicine/Primary Attending: Braeden August MD NIGHT AND WEEKEND COVERAGE: Please page [phone] from 7 PM to 7 AM Subjective INTERVAL HPI: Reports feeling well. Denied fever and chills. No chest pain. MEDICATIONS: Reviewed Objective PHYSICAL EXAM: BP 163/75 Pulse 68 Temp (Src) 97.7 (Oral) Resp 18 Ht 5' 10 (1.78m) Wt 220 lb 12.8 oz (100.2kg) SpO2 98% BMI 31.68 kg/(m2). Physical Exam Performed GENERAL: Alert, no distress, cooperative SKIN: Skin color, texture, turgor normal. No rashes or lesions. HEAD/SINUSES: No significant findings EYES: PERRLA, EOMI EARS: External ears normal, canals clear NOSE: Nares normal. Septum midline. OROPHARYNX: Lips, mucosa, and tongue normal. Teeth and gums normal. Oropharynx normal. NECK: No jugulovenous distention, No carotid bruits, Carotid pulse normal contour, Supple BACK: Back symmetric, Normal curvature, ROM normal, No CVAT. LUNGS: Lungs clear to auscultation, Good diaphragmatic excursion CARDIAC: Normal S1 and S2; no rubs, murmurs, or gallops ABDOMEN: Abdomen soft, non-tender, BS normal, No masses or organomegaly EXTREMITIES: Extremities normal, no deformities, edema, clubbing or skin discoloration. Good capillary refill., No ulcers NEURO: No focal neuro deficit PULSES: 2+ radial, 2+ carotid Lines, Drains, and Airways Line Peripheral Double Lumen 06/25/18 1600 Admission to Hospital Left Antecubital 20 Gauge 3 days DATA: Diagnostic tests reviewed for today's visit: Assessment/Plan 1. CAD (coronary artery disease): With triple vessel disease Awaiting CABG Cardiothoracic following Continue to monitor Continue tele 2. Hypertension essential: Continue beta travis BGL elevated this morning 3. Hyperlipidemia: On statin. May need to decrease. Medication and Non-Pharmacologic VTE Prophylaxis/Anticoagulants Anticoagulant AND Antiplatelet Medications Start Dose Route Frequency Ordered Stop 06/26/18 0900 aspirin 81 mg chewable tab(s) 81 mg ORAL DAILY 06/25/18 1753 -- 06/25/18 1730 enoxaparin 40 mg injection (LOVENOX) 40 mg SUBCUTANEOUS EVERY 24 HOURS 06/25/18 1712 -- 06/25/18 1645 vte non-pharmacologic prophylaxis - none indicated (mn,oh) VTE Prophylaxis: VTE prophylaxis appropriate Disposition: Home Plan of care discussed with: Patient SIGNATURE: Braeden August MD PATIENT NAME: Krystian Child DATE: June 29, 2018 TIME: 9:32 AM PAGER/CONTACT #: [phone] Normal [facility] Type and Screenon 06-29-2018 ABO group Nom (Bld) O Normal [facility] Comment on above: Performed By: #### P 14 #### [place] [address] Comment See Below [facility] Comment on above: Result Comment: Scre en &/or Xmatch expires in 3 days at 12 midnight. Redraw patient at that time. Performed By: #### P 14 #### [place] [address] RH Type Negative [facility] Comment on above: Performed By: #### P 14 #### [place] [address] CASE MGT INIT ASSESon 2018 CASE MGT INIT ASSES HNO ID: [id number] Author: Keisha Montoya) MARIUSZ Tamayo Service: Care Management Author Type: Registered Nurse Type: Care Mgt Initial Assessment Filed: 06/28/2018 4:03 PM Note Text: CARE MANAGEMENT: ASSESSMENT AND DISCHARGE PLAN SERVICE DATE: 06/28/2018 SERVICE TIME: 4:01 PM PRIMARY CARE PHYSICIAN: Ligia Mcrae DO ADMISSION STATUS: Inpatient Needs Prior to Discharge: Home Care Order MEDICAL: Patient/Threat Monitoring Analyst Stated Goals: To have reduction in symptoms Health Insurance: [employer] MEDICARE PPO [employer] Medicare Health Issues Impacting Discharge Plan: None Last Admission Date: none Is this Within the Past 30 days? No Advance Directive: Current Advance Directive: Health Care Power of Corral Boss;Living Will In Chart: No Marketing Program Manager Attempted to Assist with AD Completion: No Unable to Assist Due To:: Other: See Comment (Pts will bring copies in from home. ) Health Literacy: 1. How often do you need to have someone help you when you read instructions, pamphlets, or other written material from your doctor or pharmacy? Never - 1 2. How confident are you filling out medical forms by yourself? Extremely - 1 If Patient scores > 3 on either question, the following interventions were put into place: Patient did not score > 3 FUNCTIONAL AND COGNITIVE/BEHAVIORAL PRIOR TO ADMISSION: Baseline Mental Status: Alert AND Oriented, Person, Place , Time and Situation Functional Status: Independent Does Patient Currently Receive Any Community Services or Home Care? None Equipment Prior to Admission: None Has the Patient Been in a Shelter Facility in the Past 30 days? No SOCIAL: Living Arrangement: Home Lives With: Spouse Financial Resources: Retired Primary Contact: Extended Emergency Contact Information Primary Emergency Contact: Bozena Child [address]: [address] [place] [id number] Relation: Spouse Supportive: Yes Other Important Patient Contacts: None Caregiver Assessment: Caregiver is ready, willing and able to meet the patient's needs as recommended by the inter-professional team? No Caregiver Needed Patient's transition needs and plan for meeting these needs: . Does the patient have an acute stroke diagnosis, or has the patient had a stroke during this admission? No Medication Adherence: I am convinced of the importance of my prescription medication: Agree mostly - 0 I worry that my prescription medication will do more harm than good to me Disagree mostly - 0 I feel financially burdened by my [id number] expenses for my prescription medication: Disagree mostly -0 Patient is categorized as low risk < 2 Are you interested in bedside delivery of your medications? Yes Food Concerns: In the Last Month, Have You had Trouble Getting Food? No trouble getting food During the Last Month, Have You Worried Whether Your Food Would Run Out Before You Had Enough Money to Buy More? No Is the Patient Psychosocially Complex? No ASSESSMENT AND PLAN: Medical Needs: None Psychosocial Needs: None FREEDOM OF CHOICE EXPLAINED: Preference: [facility] or [facility] POTENTIAL TRANSITION PLANS Home Home Care Spoke with pt at the bedside. Pt states that he lives at home with his indept EDGER TAILER. Plan CABG this . Anticipate need for hhc post op- pt would like [facility] ( if unable would like [facility]). Will follow. SIGNATURE: Keisha Tamayo RN PATIENT NAME: Krystian Child DATE: June 28, 2018 TIME: 4:01 PM PAGER/CONTACT #: [phone] Normal [facility] CDVI B MODEon 06-28-2018 CDVI B MODE Performed at [facility] APPROVED BY: ELISEO HUFFMAN MD EXAM TITLE: NEUROVASCULAR LABORATORY CAROTID ULTRASOUND DATE:06/28/2018 11:59 CLINICAL INDICATION/HISTORY: This is a 72-year-old inpatient from Room 4237 with chief complaint of preop CABG TECHNIQUE: Grayscale ultrasonography as well as color flow imaging was used in conjunction with Doppler flow velocities and spectral analysis to evaluate arterial disease in the neck. FINDINGS: Right common carotid peak systolic velocity is 105 cm/s with the right internal carotid peak systolic velocity of 77 cm/s. Systolic ratio on the right side is less 0.74. Vertebral artery flow is seen in the right neck and appears to be antegrade direction. Minimal plaque is seen in the right bulb and right internal carotid area. The left common carotid peak systolic velocity is 107 cm/s with the left internal carotid peak systolic velocity 104 cm/s. This yields a systolic ratio of 0.97. Vertebral artery flow in the left neck is present and appears to be antegrade direction. Minimal plaque is visualized in the left carotid bulb and left internal carotid. IMPRESSION: Vertebral arteries appear to be patent with antegrade flow bilaterally. Peak systolic velocities are consistent with less than a 50% stenosis in the internal carotids bilaterally. Minimal plaque is visualized in the cervical level carotid system bilaterally. Normal [facility] PROGRESSon 06-28-2018 Protein mass conc HNO ID: [id number] Author: Braeden August Service: Hospital Medicine Author Type: Physician Type: Progress Notes Filed: 06/28/2018 8:39 AM Note Text: DEPARTMENT OF HOSPITAL MEDICINE PROGRESS NOTE SERVICE DATE: 06/28/2018 SERVICE TIME: 8:31 AM Hospital Medicine/Primary Attending: Braeden August MD NIGHT AND WEEKEND COVERAGE: Please page [phone] from 7 PM to 7 AM Subjective INTERVAL HPI: Reports feeling better. Denied fever and chills. No chest pain. No nausea or vomiting. MEDICATIONS: Reviewed Objective PHYSICAL EXAM: BP 119/70 Pulse 65 Temp (Src) 97.9 (Oral) Resp 18 Ht 5' 10 (1.78m) Wt 220 lb 12.8 oz (100.2kg) SpO2 95% BMI 31.68 kg/(m2). Physical Exam Performed GENERAL: Alert, no distress, cooperative SKIN: Skin color, texture, turgor normal. No rashes or lesions. HEAD/SINUSES: No significant findings EYES: PERRLA, EOMI EARS: External ears normal, canals clear NOSE: Nares normal. Septum midline. OROPHARYNX: Lips, mucosa, and tongue normal. Teeth and gums normal. Oropharynx normal. NECK: No jugulovenous distention, No carotid bruits, Carotid pulse normal contour, Supple BACK: Back symmetric, Normal curvature, ROM normal, No CVAT. LUNGS: Lungs clear to auscultation, Good diaphragmatic excursion CARDIAC: Normal S1 and S2; no rubs, murmurs, or gallops ABDOMEN: Abdomen soft, non-tender, BS normal, No masses or organomegaly EXTREMITIES: Extremities normal, no deformities, edema, clubbing or skin discoloration. Good capillary refill., No ulcers NEURO: No focal neuro deficit PULSES: 2+ radial, 2+ carotid Lines, Drains, and Airways Line Peripheral Double Lumen 06/25/18 1600 Admission to Hospital Left Antecubital 20 Gauge 2 days DATA: Diagnostic tests reviewed for today's visit: Assessment/Plan 1. CAD (coronary artery disease) POA: Yes With triple Vessel disease Awaiting CTS to schedule CABG Continue to monitor Continue tele 2. Hypertension Essential: Stable. Continue current BP medication 3. Hyperlipidemia: On statin. Resolved Problems: * No resolved hospital problems. * Medication and Non-Pharmacologic VTE Prophylaxis/Anticoagulants Anticoagulant AND Antiplatelet Medications Start Dose Route Frequency Ordered Stop 06/26/18 0900 aspirin 81 mg chewable tab(s) 81 mg ORAL DAILY 06/25/18 1753 -- 06/25/18 1730 enoxaparin 40 mg injection (LOVENOX) 40 mg SUBCUTANEOUS EVERY 24 HOURS 06/25/18 1712 -- 06/25/18 1645 vte non-pharmacologic prophylaxis - none indicated (mn,oh) VTE Prophylaxis: VTE prophylaxis appropriate Disposition: Home Plan of care discussed with: Patient SIGNATURE: Braeden August MD PATIENT NAME: Krystian Child DATE: June 28, 2018 TIME: 8:31 AM PAGER/CONTACT #: [phone] Normal [facility] PROGRESSon 06-27-2018 Protein mass conc HNO ID: [id number] Author: Braeden August Service: Hospital Medicine Author Type: Physician Type: Progress Notes Filed: 06/27/2018 9:57 AM Note Text: DEPARTMENT OF HOSPITAL MEDICINE PROGRESS NOTE SERVICE DATE: 06/27/2018 SERVICE TIME: 9:47 AM Hospital Medicine/Primary Attending: Braeden August MD NIGHT AND WEEKEND COVERAGE: Please Page [phone] from 7 PM to 7 AM Subjective INTERVAL HPI: Reports feeling well. Denied fever and chills No chest pain MEDICATIONS: Reviewed Objective PHYSICAL EXAM: BP 147/78 Pulse 65 Temp (Src) 98.2 (Oral) Resp 14 Ht 5' 10 (1.78m) Wt 220 lb 12.8 oz (100.2kg) SpO2 97% BMI 31.68 kg/(m2). Physical Exam Performed GENERAL: Alert, no distress, cooperative SKIN: Skin color, texture, turgor normal. No rashes or lesions. HEAD/SINUSES: No significant findings EYES: PERRLA, EOMI EARS: External ears normal, canals clear NOSE: Nares normal. Septum midline. OROPHARYNX: Lips, mucosa, and tongue normal. Teeth and gums normal. Oropharynx normal. NECK: No jugulovenous distention, No carotid bruits, Carotid pulse normal contour, Supple BACK: Back symmetric, Normal curvature, ROM normal, No CVAT. LUNGS: Lungs clear to auscultation, Good diaphragmatic excursion CARDIAC: Normal S1 and S2; no rubs, murmurs, or gallops ABDOMEN: Abdomen soft, non-tender, BS normal, No masses or organomegaly EXTREMITIES: Extremities normal, no deformities, edema, clubbing or skin discoloration. Good capillary refill., No ulcers NEURO: no focal neuro deficit PULSES: 2+ radial, 2+ carotid Lines, Drains, and Airways Line Peripheral Double Lumen 06/25/18 1600 Admission to Hospital Left Antecubital 20 Gauge 1 day DATA: Diagnostic tests reviewed for today's visit: Assessment/Plan 1. CAD (coronary artery disease) POA: Yes Triple vessel disease Continue to monitor Awaiting CTS for possible CABG 2. Hypertension Essential: Better controlled Continue metoprolol 3. Hyperlipidemia: Continue statin Medication and Non-Pharmacologic VTE Prophylaxis/Anticoagulants Anticoagulant AND Antiplatelet Medications Start Dose Route Frequency Ordered Stop 06/26/18 0900 aspirin 81 mg chewable tab(s) 81 mg ORAL DAILY 06/25/18 1753 -- 06/25/18 1730 enoxaparin 40 mg injection (LOVENOX) 40 mg SUBCUTANEOUS EVERY 24 HOURS 06/25/18 1712 -- 06/25/18 1645 vte non-pharmacologic prophylaxis - none indicated (fl,oh) VTE Prophylaxis: VTE prophylaxis appropriate Disposition: Home Plan of care discussed with: Patient SIGNATURE: Braeden August MD PATIENT NAME: Krystian Child DATE: June 27, 2018 TIME: 9:47 AM PAGER/CONTACT #: [phone] Normal [facility] Protimeon 06-27-2018 INR Coag RelTime (PPP) 1.06 {INR} Normal 0.90-1.30 [facility] Comment on above: Result Comment: Note : Reference Range Change Vitamin K Antagonist (VKA) Therapeutic Range: INR 2 to 3 (Target INR of 2.5) Note: For patients treated with VKA drugs, such as warfarin, the [employer] 2012 Guideline recommends a therapeutic INR range of 2 to 3 (target INR of 2.5). This recommendation includes high-risk patients with antiphospholipid syndrome with previous arterial or venous thromboembolism, current-generation mechanical or bioprosthetic aortic heart valve replacement. VKA Therapeutic Range for some Mechanical Valve Replacement: INR 2.5 to 3.5 (Target INR of 3) Note: Patients with mechanical aortic valve replacement and additional risk factors for thromboembolic events (atrial fibrillation, previous thromboembolism, LV dysfunction, hypercoagulable conditions) or an older generation mechanical AVR (i.e., ball in-Cage) or any mechanical MVR should have a INR therapeutic range of 2.5 to 3.5 target INR of 3). Kem GH, et al. Chest 2012; 141:7S-47S Chepe MCKEON et al. JACC 2017; 70: 252-289 Performed By: #### P 14 #### [place] [address] Prothrombin time (PT) Coag time (PPP) 11.0 s Normal 9.7-13.0 [facility] Comment on above: Performed By: #### P 14 #### [facility] [address] [place] [address] CHEST 2 VIEWSon 06-26-2018 CHEST 2 VIEWS Performed at [facility] APPROVED BY: Neri Matthews MD EXAMINATION: CHEST RADIOGRAPH (2 VIEW FRONTAL & LATERAL) CLINICAL HISTORY: The patient is a 72-year-old male who is preoperative for coronary artery bypass grafting. MQ: XC2_5 Comparison: None RESULT: Lines, tubes, and devices: EKG leads overlie the chest. Lungs and pleura: No consolidation. No lung mass. No pleural effusion. Cardiomediastinal silhouette: Normal cardiomediastinal silhouette. Other: No other abnormality is identified. IMPRESSION: No acute radiographic abnormality. Normal [facility] CONSULTon 06-26-2018 CONSULT HNO ID: [id number] Author: Oscar Villanueva Service: Cardiac Surgery Author Type: Physician Type: Consults Filed: 06/27/2018 11:42 AM Note Text: CARDIOTHORACIC SURGERY CONSULT / HANDP SERVICE DATE: 06/26/2018 SERVICE TIME: 11:38 AM Subjective PRIMARY SERVICE: Cardiothoracic Surgery CHIEF COMPLAINT: CAD and angina HPI: This is a 72 year old male with PMHX of HTN, HLD who presents with history of angina and SOB. He was referred by his PCP For a stress test that was read as abnormal. He was plavix loaded and underwent cardiac catheterization 06/25/[address] Stubbs at [facility]. He reports he was in [place] a few years ago on a missions trip, was extremely fatigued and had an episode where he could not talk. He was treated and released in [place] and [place] the [place] where a CT scan revealed a possible small infarct. He had a similar episode a few years later. There are no residual from these episodes. He denies any thyroid disease, lung disease (ex-smoker quit 30+ years ago), DM, liver disease, abnormal bleeding or clotting. Patient is Able to Perform the Following Physical Activity: Climb a flight of stairs or walk up a hill (5.50 METs) Patient has the following medical comorbidities which might affect the perioperative course: - CAD of the [place] vessel. No interventions.. PAST MEDICAL HISTORY Diagnosis Date - Chronic rhinitis - Family history of malignant neoplasm of gastrointestinal tract family history of colon cancer - Hemorrhage of gastrointestinal tract, unspecified - Impotence of organic origin - Internal hemorrhoids without mention of complication - Mitral valve disorders - Other dyspnea and respiratory abnormality - SCC (squamous cell carcinoma) PAST SURGICAL HISTORY Procedure Laterality Date - APPENDECTOMY - COLONOSCOP W/ OR W/O [facility] SPEC Colonoscopy - COLONOSCOP W/ OR W/O [facility] SPEC 10/31/05 Repeat in - MOHS 1 STAGE T/A/L 07/09 - REM LESION NEC,HAND,SCAL<0.5CM 09/23/06 Exc. right mid neck lesion FAMILY HISTORY Problem Relation Age of Onset - Colon Cancer Father - Heart Brother - Heart Brother - Heart Mother - Diabetes Mother - Hypertension Mother - Stroke Mother - Stroke Brother - Alcohol/Drug Brother Social History Substance Use Topics - Smoking status: Former Smoker Quit date: 09/30/1979 - Smokeless tobacco: Never Used - Alcohol use No Prescriptions Prior to Admission: aspirin, enteric coated (ASPIRIN, ENTERIC COATED) 81 mg EC tablet Take 81 mg by mouth once daily. Disp: Rfl: 06/25/2018 at Unknown time clopidogrel (PLAVIX) 75 mg tablet Take 75 mg by mouth once daily. Disp: Rfl: 06/25/2018 at Unknown time atorvastatin (LIPITOR) 10 mg tablet Take 10 mg by mouth once daily. Disp: Rfl: 06/24/2018 at Unknown time aspirin, enteric coated (ASPIRIN, ENTERIC COATED) 81 mg EC tablet Take 81 mg by mouth once daily. clopidogrel (PLAVIX) 75 mg tablet Take 75 mg by mouth once daily. atorvastatin (LIPITOR) 10 mg tablet Take 10 mg by mouth once daily. ALLERGIES No Known Allergies REVIEW OF SYSTEMS: PAIN ASSESSMENT: Negative for pain, history of chronic pain, or current treatment for a chronic pain condition. GENERAL: No weight loss, malaise or fevers RESPIRATORY: Negative for cough, wheezing or shortness of breath. CARDIOVASCULAR: Positive for exertion CP and SOB GI: Negative for abdominal discomfort, blood in stools or black stools or change in bowel habits : No history of dysuria, frequency or incontinence MUSCULOSKELETAL: Negative for joint pain or swelling, back pain or muscle pain. SKIN: Negative for lesions, rash, and itching. HEMATOLOGY/LYMPHOLOGY Negative for prolonged bleeding, bruising easily or swollen nodes. ENDOCRINE: Negative for cold or heat intolerance, polyuria, polydipsia and goiter. NEURO: No history of headaches, syncope, paralysis, seizures or tremors and questionable Hx of CVA/TIA, no residual All other systems reviewed and negative Objective PHYSICAL EXAM: BP 151/73 Pulse 68 Temp 36.4 ?C (97.5 ?F) (Oral) Resp 16 Ht 177.8 cm (5' 10) Wt 100.2 kg (220 lb 12.8 oz) SpO2 95% BMI 31.68 kg/m? Body surface area is 2.22 meters squared. STS RISK CALCULATOR: Estimate 0.762% pending carotid and PFT General Appearance: well developed and no distress Skin: warm and dry Neck: carotid bruits L>R Lungs: clear and respiratory effort: normal Heart: S1, S2 normal and murmur slight systolic 2/6, low Peripheral Vascular/Arteries: pulses intact Abdomen: soft, round, non-tender and bowel sounds present Neurologic/Psychiatric: oriented to time, place and person Extremities: normal exam of the extremities and no edema Lines, Drains, and Airways Line Peripheral Double Lumen 06/25/18 1600 Admission to Hospital Left Antecubital 20 Gauge less than 1 day DATA: Diagnostic tests reviewed for today's visit: Significant Lab Results: As Below Cardiac Catheterization: Official report is pending, images available in [facility]. 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 Chest X-RAY: Pending ECHO: CONCLUSIONS: - Technically difficult exam due to Limited Subcostals. - Exam indication: Acute chest pain with suspected MN - The left ventricle is normal in size. There is no left ventricular hypertrophy. Left ventricular systolic function is normal. EF = 55 ? 5% (visual est.) Grade I left ventricular diastolic dysfunction. Possible mild inferior wall hypokinesis - The right ventricle is normal in size. Right ventricular systolic function is normal. - The visualized aorta is borderline dilated with a maximal dimension of 3.8 cm. - Mild MR. - Mild AR. - The patient has not had a prior CC echocardiographic exam for comparison. Stress Test: Abnormal, ischemia basal inferior. With preserved EF Recent Labs 06/26/18 0340 HBA1C 5.4 RBC 4.39* WBC 6.57 HB 14.0 HCT 40.6 PLT 162 NA 139 K 4.0 CHLOR 108* CO2 26 BUN 19* CREAT 1.03 GLUC 97 CA 8.2* MG 2.1 TPROT 6.7 TBILI 0.6 ALKPHOS 49 ALT 24 AST 13 ANION 9 Assessment/Plan Active Problems: CAD (coronary artery disease) POA: Yes Assessment AND Plan: -will ask [facility] to re-send cath report, description of cath does not match the patient (report describes stents, but Mr Child has never had stents. -Distal left main disease, LAD, and PHY THERAPIST of RCA -Plavix loaded: 06/23 300 mg, 06/24 75 mg, 06/25 75 mg - Needs 5 day washout -Earliest OR is 06/30. -Echo with mild MR and AR, EF 55% -Carotids pending for Hx of TIA/CVA Resolved Problems: * No resolved hospital problems. * Tests/Labs Ordered: 1. Chest X-ray 2. CBC 3. CMP 4. HbA1c (average sugar test) 5. Lipids 6. Thyroid Function 7. Urinalysis 8. Bedside spirometry 9. Echo 10. Carotid US These findings will be communicated back to the requesting provider electronically. SIGNATURE: Orlando Jacobs APRN.REHAN PATIENT NAME: Krystian Child DATE: June 26, 2018 TIME: 11:38 AM PAGER/CONTACT #: [phone] Attending Note I have personally performed a face to face assessment of the patient and have reviewed the PA/EXECUTIVE ADMINISTRATIVE ASSISTANT note. My bean findings include: Assessment/Plan are 72 year old man experiencing exertional fatigue, chest pressure and dyspnea; stress test +; cath c/w severe LM, LAD, circ and RCA disease with normal LV. Echo pending. In setting of HTN, HLD, obesity, remote tobacco, remote lacunar infarct, +FH. I agree with the recommendation for MV CABG. The risks, benefits, and anticipated outcomes of the procedure; the risks and benefits of the alternatives to the procedure; and the roles and tasks of the personnel to be involved were discussed with the patient and he consents to the procedure and agrees to proceed. OR later this week to allow plavix washout. Other additions or changes: None Signature: Oscar Villanueva MD Date: 06/27/2018 Time: 11:40 AM Normal [facility] CONSULT PROGon 06-26-2018 Protein mass conc HNO ID: [id number] Author: Julia Ackerman (Pa) Service: Cardiac Surgery Author Type: Physician Integrated Circuit Fabricator Type: Consult Progress Note Filed: 07/03/2018 9:43 AM Note Text: CTVS Surgery Pre-Op Open Heart Check List Patient Info: Krystian Child 1945 72 year old Patient has no known allergies. HPI: This is a 72 year old male with PMHX of HTN, HLD who presents with history of angina and SOB. He was referred by his PCP For a stress test that was read as abnormal. He was plavix loaded and underwent cardiac catheterization 06/25/[address] Stubbs at [facility]. ? He reports he was in [place] a few years ago on a missions trip, was extremely fatigued and had an episode where he could not talk. He was treated and released in [place] where a CT scan revealed a possible small infarct. He had a similar episode a few years later. There are no residual from these episodes. He denies any thyroid disease, lung disease (ex-smoker quit 30+ years ago), DM, liver disease, abnormal bleeding or clotting. ? Last set of vitals: BP 151/73 Pulse 68 Temp 36.4 ?C (97.5 ?F) (Oral) Resp 16 Ht 177.8 cm (5' 10) Wt 100.2 kg (220 lb 12.8 oz) SpO2 95% BMI 31.68 kg/m? Wt: 104 kg (229 lb 4.5 oz) BMI: 31.98 kg/(m2) Procedure: CABG Diagnosis: CAD/Angina Date of Procedure: 07/01/2018 STS Risk Score: 0.762% CARE TEAM: Cardiac Surgeon: Dr. Villanueva Patient Services Manager: Evelyne PCP: Thor Other Providers: N/A Pre-Op Testing: LABS: Recent Labs 06/26/18 0340 HBA1C 5.4 RBC 4.39* WBC 6.57 HB 14.0 HCT 40.6 PLT 162 NA 139 K 4.0 CHLOR 108* CO2 26 BUN 19* CREAT 1.03 GLUC 97 CA 8.2* MG 2.1 TPROT 6.7 TBILI 0.6 ALKPHOS 49 ALT 24 AST 13 ANION 9 HGB (g/dL) Date Value 06/26/2018 14.0 Hematocrit (%) Date Value 06/26/2018 40.6 WBC (thou/cmm) Date Value 06/26/2018 6.57 Platelet Count (thou/cmm) Date Value 06/26/2018 162 Chemistry Glucose (mg/dL) Date Value 06/26/2018 97 Potassium (mEq/L) Date Value 06/26/2018 4.0 Sodium (mEq/L) Date Value 06/26/2018 139 Chloride (mEq/L) Date Value 06/26/2018 108 CO2 (mEq/L) Date Value 06/26/2018 26 Creatinine (mg/dL) Date Value 06/26/2018 1.03 BUN (mg/dL) Date Value 06/26/2018 19 Anion Gap (no units) Date Value 06/26/2018 9 Calcium (mg/dL) Date Value 06/26/2018 8.2 Protein, Total (g/dL) Date Value 06/26/2018 6.7 Albumin (g/dL) Date Value 06/26/2018 3.2 Bilirubin, Total (mg/dL) Date Value 06/26/2018 0.6 Alkaline Phosphatase (U/L) Date Value 06/26/2018 49 AST (U/L) Date Value 06/26/2018 13 ALT (U/L) Date Value 06/26/2018 24 Coag Results for KRYSTIAN CHILD ( ) as of 06/28/2018 14:53 Ref. Range 06/27/2018 12:00 Prothrombin Time Latest Ref Range: 9.7 - 13.0 sec 11.0 INR Latest Ref Range: 0.90 - 1.30 1.06 UA 1d ago Color YELLOW Urine Appearance CLEAR Glucose, Urine Negative mg/dL NEGATIVE Ketones, Urine Negative mg/dL NEGATIVE Hemoglobin, Urine Negative NEGATIVE Protein, Urine Negative mg/dL NEGATIVE Nitrite Reflex Negative NEGATIVE Bilirubin, Urine Negative NEGATIVE Specific [place], Ur 1.005 - 1.030 1.018 pH, Urine 5.0 - 8.0 6.5 Urobilinogen, Urine 0.0 - 1.0 EU/dL 1.0 Leukocytes Esterase Negative NEGATIVE RBC, Urine 0.0 - 5.0 /hpf 1.9 WBC, REFLEX 0.00 - 5.00 /hpf 0.40 EP Cells Urine 0.0 - 5.0 /hpf 0.5 Bacteria, Urine None NONE Hyaline Cast 0.0 - 1.0 /lpf 1.2 REFLEX COMMENT see below Type AND Screen: Results for KRYSTIAN CHILD ( ) as of 06/29/2018 15:37 Ref. Range 06/29/2018 03:05 ABO Group Unknown O RH Type Unknown Negative Antibody Screen Unknown NEGATIVE Blood Bank Comment Unknown See Below RBC Cross match: 2 units MRSA Screen: Negative, Mupirocin initiated HGA1C Lab Results Component Value Date HBA1C 5.4 06/26/2018 PFT/ABG: Ordered report pending FEVI: 115% DLCO: ABG: Recent Labs 06/26/18 0340 CO2 26 . IMAGING/PROCEDURES CXR: RESULT: ? Lines, tubes, and devices: ?EKG leads overlie the chest. ? Lungs and pleura: ?No consolidation. No lung mass. No pleural effusion. ? Cardiomediastinal silhouette: ?Normal cardiomediastinal silhouette. ? Other: ?No other abnormality is identified. ? ? IMPRESSION: ? No acute radiographic abnormality Cardiac Catheterization: new/updated report reviewed from [facility] resent 06/28/2018 2D Echo: EF: 55% FINDINGS: ? LEFT VENTRICLE The left ventricle is normal in size. There is no left ventricular hypertrophy. Left ventricular systolic function is normal. Grade I left ventricular diastolic dysfunction. Mitral annular septal E/e': 8.7. Wall Motion: The inferior wall is mildly hypokinetic. All remaining scored segments are normal. ? ? RIGHT VENTRICLE The right ventricle is normal in size. Right ventricular systolic function is normal. RV systolic tissue Doppler velocity ?is 17.5 cm/s. Tricuspid annular displacement is 2.5 cm. Estimated right ventricular systolic pressure is 21 mmHg consistent with normal pulmonary artery pressures. Estimated right atrial pressure is 3 mmHg (although IVC not seen). ? LEFT ATRIUM The left atrial cavity is normal in size. Pulmonary Veins: The pulmonary venous pattern showed normal systolic flow. RIGHT ATRIUM The right atrial cavity is normal in size. ? MITRAL VALVE The mitral valve leaflets are structurally normal. [place] mitral valve. There is mild (1+) mitral valve regurgitation. The pressure half time is 74 msec. The peak mitral E/A ratio is 0.60. The average mitral E/e' ratio is 8.7. The mitral flow deceleration time is 254 msec. ? TRICUSPID VALVE The tricuspid valve leaflets are structurally normal. [place] tricuspid valve. There is trace tricuspid valve regurgitation. ? AORTIC VALVE There is no aortic valve stenosis. There is mild (1+) aortic valve regurgitation. Tricuspid aortic valve. There is mild thickening. The LVOT diameter is 2.0 cm. ? PULMONIC VALVE The pulmonic valve cusps are structurally normal. There is trace pulmonic valve regurgitation. ? AORTA The visualized aorta is borderline dilated. Measurements - Sinus 3.8 cm. Sinotubular junction 2.9 cm. Mid ascending aorta 3.4 cm. PULMONARY ARTERIES The pulmonary arteries are unseen or not interrogated. ? PERICARDIUM There is no pericardial effusion. ? CONCLUSIONS: - Technically difficult exam due to Limited Subcostals. - Exam indication: Acute chest pain with suspected MN - The left ventricle is normal in size. There is no left ventricular hypertrophy. Left ventricular systolic function is normal. EF = 55 ? 5% (visual est.) Grade I left ventricular diastolic dysfunction. Possible mild inferior wall hypokinesis - The right ventricle is normal in size. Right ventricular systolic function is normal. - The visualized aorta is borderline dilated with a maximal dimension of 3.8 cm. - Mild MR. - Mild AR. - The patient has not had a prior CC echocardiographic exam for comparison. 5 Meter Walk Test: not done OPTIONAL TESTINGS: Carotid U/S 06/28/2018 Vertebral arteries appear to be patent with antegrade flow bilaterally. ?Peak systolic velocities are consistent with less than a 50% stenosis in the internal carotids bilaterally. ?Minimal plaque is visualized in the cervical level carotid system bilaterally. Lower EXT LAMONTE: N/A Palmar Arch: N/A Vein Mapping: N/A Dental Clearance: N/A CT Chest: TBD review with JAL Medications Notes: Blood thinners: Patient is on following blood thinners: Aspirin -Yes, dose 81 mg, stopped No Plavix - Yes, dose Loaded 300, 75, 75 mg stopped Yes, Last Dose was 06/25/2018 Beta Travis: Last dose of beta travis taken: Metoprolol 25 mg BID Perioperative Transfusion risk STS Risk Factors: Advanced age Yes Preoperative anemia No Non-CABG surgery No Preoperative anticoagulation Yes, plavix Clotting abnormalities No Female gender No Small body habitus No Renal insufficiency No IDDM No Sepsis No Liver disease No Preioperative Wound Healing - Vest recommended Yes Risk Factors: Obesity Yes DM No Renal Dx No CLEARANCES NEEDED Pulmonary: No Hematology: No Nephrology No Vascular surgery No Other No Orlando Jacobs, 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.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 AIDE Normal [facility] Comprehensive Panelon 2018 ALP enzyme act/vol 49 U/L Normal 46-116 [facility] Comment on above: Performed By: #### P 14 #### [place] [address] Protein mass conc 6.7 g/dL Normal 6.4-8.2 [facility] Comment on above: Performed By: #### P 14 #### [facility] [address] [place], [place] [address] Bilirubin mass conc 0.6 mg/dL Normal 0.2-1.0 [facility] Comment on above: Performed By: #### P 14 #### [facility] [address] [place], [place] [address] ALT enzyme act/vol 24 U/L Normal 12-78 [facility] Comment on above: Performed By: #### P 14 #### [facility] [address] [place], [place] [address] Creatinine mass conc 1.03 mg/dL Normal 0.67-1.17 [facility] Comment on above: Performed By: #### P 14 #### [facility] [address] [place], [place] [address] AST enzyme act/vol 13 U/L Normal 9-37 [facility] Comment on above: Performed By: #### P 14 #### [facility] [address] [place], [place] [address] Albumin mass conc 3.2 g/dL Low 3.4-5.0 [facility] Comment on above: Performed By: #### P 14 #### [facility] [address] [place] [address] Anion gap molar conc 9 mmol/L Normal 8-16 [facility] Comment on above: Performed By: #### P 14 #### [facility] [address] [place] [address] CO2 molar conc 26 mmol/L Normal 21-32 [facility] Comment on above: Performed By: #### P 14 #### [facility] [address] [place] [address] Glucose mass conc 97 mg/dL Normal 70-99 [facility] Comment on above: Performed By: #### P 14 #### [facility] [address] [place] [address] Calcium mass conc 8.2 mg/dL Low 8.5-10.1 [facility] Comment on above: Performed By: #### P 14 #### [facility] [address] [place] [address] Urea nitrogen mass conc 19 mg/dL High 7-18 [facility] Comment on above: Performed By: #### P 14 #### [facility] [address] [place] [address] Chloride molar conc 108 mmol/L High 98-107 [facility] Comment on above: Performed By: #### P 14 #### [facility] [address] [place] [address] Potassium molar conc 4.0 mmol/L Normal 3.5-5.1 [facility] Comment on above: Performed By: #### P 14 #### [facility] [address] [place] [address] Sodium molar conc 139 mmol/L Normal 136-145 [facility] Comment on above: Performed By: #### P 14 #### [facility] [address] [place] [address] Hemogramon 06-26-2018 Erythrocyte distribution width Ratio (RBC) 13.1 % Normal 11.6-14.4 [facility] Comment on above: Performed By: #### C BC1 #### [facility] [address] [place] [address] Hematocrit Volume Fraction (Bld) 40.6 % Normal 40.1-51.0 [facility] Comment on above: Performed By: #### C BC1 #### [facility] [address] [place] [address] Hemoglobin mass conc (Bld) 14.0 g/dL Normal 13.7-17.5 [facility] Comment on above: Performed By: #### C BC1 #### [place] [address] MCH Entitic mass (RBC) 31.9 pg Normal 25.7-32.2 [facility] Comment on above: Performed By: #### C BC1 #### [place] [address] MCHC mass conc (RBC) 34.5 % Normal 32.3-36.5 [facility] Comment on above: Performed By: #### C BC1 #### [place] [address] MCV Entitic volume (RBC) 92.5 fL Normal 83.2-95.6 [facility] Comment on above: Performed By: #### C BC1 #### [place] [address] Platelet mean volume Entitic volume (Bld) 10.8 fL Normal 8.7-12.0 [facility] Comment on above: Performed By: #### C BC1 #### [facility] [address] [place] [address] Platelets #/vol (Bld) 162 thou/cmm Normal 141-365 [facility] Comment on above: Performed By: #### C BC1 #### [facility] [address] [place] [address] RBC #/vol (Bld) 4.39 mil/cmm Low 4.63-6.08 [facility] Comment on above: Performed By: #### C BC1 #### [facility] [address] [place], [place] [address] RDW SD 44.0 fl Normal 36.1-45.8 [facility] Comment on above: Performed By: #### C BC1 #### [facility] [address] [place] [address] WBC #/vol (Bld) 6.57 thou/cmm Normal 4.23-9.07 [facility] Comment on above: Performed By: #### C BC1 #### [facility] [address] [place] [address] Hgb A1con 06-26-2018 Hemoglobin A1c/Hemoglobin.total mass fraction (Bld) 108 mg/dl Normal [facility] Comment on above: Performed By: #### H A1C #### [facility] [address] [place] [address] Hemoglobin A1c/Hemoglobin.total mass fraction (Bld) 5.4 % Normal 4.2-6.3 [facility] Comment on above: Result Comment: Meth od is National Glycohemoglobin Standardization Program (NGSP) compliant. Performed By: #### H A1C #### [facility] [address] [place] [address] Lipid Profileon 06-26-2018 Cholesterol in HDL mass conc 30 mg/dL Normal >40 [facility] [facility] Comment on above: Performed By: #### L IPD2 #### [place] [address] Cholesterol in LDL mass conc 86 mg/dL Normal [facility] Comment on above: Result Comment: No C AD and with fewer than 2 CAD risk factors <160 mg/dL No CAD but with 2 or more CAD risk factors <130 mg/dL Definite CAD or other atherosclerotic disease <100 mg/dL Performed By: #### L IPD2 #### [facility] [address], [place] [address] Cholesterol in LDL/Cholesterol in HDL mass ratio 2.9 Normal 1.1-4.8 [facility] Comment on above: Result Comment: LDL, VLDL,LDL/HDL, Invalid if Triglyceride >400 Performed By: #### L IPD2 #### [facility] [address] [place], [place] [address] Cholesterol.total/Vikotria sterol in HDL mass ratio 5.1 {ratio} Normal 2.1-7.3 [facility] Comment on above: Performed By: #### L IPD2 #### [facility] [address] [place], [place] [address] Cholesterol in VLDL mass conc 37 mg/dL Normal <50 Desired [facility] Comment on above: Performed By: #### L IPD2 #### [facility] [address] [place], [place] [address] Triglyceride mass conc 187 mg/dL High 0-149 [facility] Comment on above: Result Comment: < 20 0 Desirable Result invalid if not a fasting specimen. Performed By: #### L IPD2 #### [facility] [address] [place], [place] [address] Cholesterol mass conc 153 mg/dL Normal 0-199 [facility] Comment on above: Result Comment: <200 Desirable 200-240 Borderline >240 High Performed By: #### L IPD2 #### [facility] [address] [place], [place] [address] Magnesium Bloodon 06-26-2018 Magnesium mass conc 2.1 mg/dL Normal 1.6-2.6 [facility] Comment on above: Performed By: #### M AG #### [facility] [address] [place], [place] [address] PROGRESSon 06-26-2018 Protein mass conc HNO ID: [id number] Author: Braeden August Service: Hospital Medicine Author Type: Physician Type: Progress Notes Filed: 06/26/2018 8:49 AM Note Text: DEPARTMENT OF HOSPITAL MEDICINE PROGRESS NOTE SERVICE DATE: 06/26/2018 SERVICE TIME: 8:41 AM Hospital Medicine/Primary Attending: Braeden August MD NIGHT AND WEEKEND COVERAGE: Please page [phone] from 7 PM to 7 AM Subjective INTERVAL HPI: Reports doing well. Denied fever and chills. Noted fair night rest. MEDICATIONS: Reviewed Objective PHYSICAL EXAM: BP 149/77 Pulse 72 Temp (Src) 98.2 (Oral) Resp 18 Ht 5' 10 (1.78m) Wt 220 lb 12.8 oz (100.2kg) SpO2 97% BMI 31.68 kg/(m2). Physical Exam Performed GENERAL: Alert, no distress, cooperative SKIN: Skin color, texture, turgor normal. No rashes or lesions. HEAD/SINUSES: No significant findings EYES: PERRLA, EOMI EARS: External ears normal, canals clear NOSE: Nares normal. Septum midline. OROPHARYNX: Lips, mucosa, and tongue normal. Teeth and gums normal. Oropharynx normal. BACK: Back symmetric, Normal curvature, ROM normal, No CVAT. LUNGS: Lungs clear to auscultation, Good diaphragmatic excursion CARDIAC: Normal S1 and S2; no rubs, murmurs, or gallops ABDOMEN: Abdomen soft, non-tender, BS normal, No masses or organomegaly EXTREMITIES: Extremities normal, no deformities, edema, clubbing or skin discoloration. Good capillary refill., No ulcers NEURO: No focal neuro deficit PULSES: 2+ radial, 2+ carotid Lines, Drains, and Airways Line Peripheral Double Lumen 06/25/18 1600 Admission to Hospital Left Antecubital 20 Gauge less than 1 day DATA: Diagnostic tests reviewed for today's visit: Assessment/Plan 1. CAD (coronary artery disease) POA: Yes Positive triple vessel disease Awaiting CTS input Continue current management 2D Echo and Carotid US ordered 2. Hypertension Essential: Better controlled Continue current medications 3. Hyperlipidemia: On statin. Cholesterol fairly controlled May decrease dose of lipitor to 40 mg. Baseline liver function obtained Medication and Non-Pharmacologic VTE Prophylaxis/Anticoagulants Anticoagulant AND Antiplatelet Medications Start Dose Route Frequency Ordered Stop 06/26/18 0900 aspirin 81 mg chewable tab(s) 81 mg ORAL DAILY 06/25/18 1753 -- 06/25/18 1730 enoxaparin 40 mg injection (LOVENOX) 40 mg SUBCUTANEOUS EVERY 24 HOURS 06/25/18 1712 -- 06/25/18 1645 vte non-pharmacologic prophylaxis - none indicated (mn,oh) VTE Prophylaxis: VTE prophylaxis appropriate Disposition: Home Plan of care discussed with: Patient SIGNATURE: Braeden August MD PATIENT NAME: Krystian Child DATE: June 26, 2018 TIME: 8:41 AM PAGER/CONTACT #: [phone] Normal [facility] TSH, 3rd generationon 2018 TSH, 3rd generation 2.560 uIU/mL Normal 0.358-3.740 [facility] Comment on above: Performed By: #### T SH3 #### [place] [address] Urinalysis, reflexon 019 Reflex Comment see below Normal [facility] Comment on above: Result Comment: Refl ex to culture is not indicated based on established laboratory criteria. Performed By: #### U RIN #### [place] [address] Bacteria LM.HPF #/area (Urine sed) NONE Normal None [facility] Comment on above: Performed By: #### U RIN #### [place] [address] Ep Cells Urine 0.5 /hpf Normal 0.0-5.0 [facility] Comment on above: Performed By: #### U RIN #### [place] [address] Hyaline Cast 1.2 /lpf High 0.0-1.0 [facility] Comment on above: Performed By: #### U RIN #### [place] [address] RBC,Urine 1.9 /hpf Normal 0.0-5.0 [facility] Comment on above: Performed By: #### U RIN #### [place] [address] WBC, reflex 0.40 /hpf Normal 0.00-5.00 [facility] Comment on above: Performed By: #### U RIN #### [place] [address] Appearance Nom (U) CLEAR Normal [facility] Comment on above: Performed By: #### U RIN #### [place] [address] Bilirubin Urine Negative Normal Negative [facility] Comment on above: Performed By: #### U RIN #### [place] [address] Color Nom (U) YELLOW Normal [facility] Comment on above: Performed By: #### U RIN #### [facility] [address], [place] [address] Glucose Ql (U) Negative Normal Negative [facility] Comment on above: Performed By: #### U RIN #### [facility] [address] [place], [place] [address] Hemoglobin,Urine Negative Normal Negative [facility] Comment on above: Performed By: #### U RIN #### [place] [address] Ketone Urine Negative Normal Negative [facility] Comment on above: Performed By: #### U RIN #### [facility] [address] [place] [address] Leukocyte esterase Test strip Ql (U) Negative Normal Negative [facility] Comment on above: Performed By: #### U RIN #### [place] [address] Nitrite reflex Negative Normal Negative [facility] Comment on above: Performed By: #### U RIN #### [place] [address] pH (U) 6.5 [pH] Normal 5.0-8.0 [facility] Comment on above: Performed By: #### U RIN #### [place] [address] Protein mass conc (U) Negative Normal Negative [facility] Comment on above: Performed By: #### U RIN #### [place] [address] Specific [place], Ur 1.018 Normal 1.005-1.030 [facility] Comment on above: Performed By: #### U RIN #### [place] [address] Urobilinogen,Ur 1.0 EU/dL Normal 0.0-1.0 [facility] Comment on above: Performed By: #### U RIN #### [place] [address] HISTORY PHYSICALon 9 HISTORY PHYSICAL HNO ID: [id number] Author: Braeden August Service: Hospital Medicine Author Type: Physician Type: HANDP Filed: 06/25/2018 5:27 PM Note Text: DEPARTMENT OF HOSPITAL MEDICINE HISTORY AND PHYSICAL EXAM SERVICE DATE: 06/25/2018 SERVICE TIME: 5:04 PM Primary Care Physician: Ligia Mcrae, DO NIGHT AND WEEKEND COVERAGE: Please page [phone] from 7 Pm to 7 AM Subjective CHIEF COMPLAINT: CAD with triple vessel disease HPI: This is a 72 year old male who presents from outside hospital. He had cardiac cath and was noted to have triple vessel disease. He was then transferred here for further work up and possible CABG. He denied any chest pain. No nausea or vomiting. PAST MEDICAL HISTORY Diagnosis Date - Chronic rhinitis - Family history of malignant neoplasm of gastrointestinal tract family history of colon cancer - Hemorrhage of gastrointestinal tract, unspecified - Impotence of organic origin - Internal hemorrhoids without mention of complication - Mitral valve disorders - Other dyspnea and respiratory abnormality - SCC (squamous cell carcinoma) PAST SURGICAL HISTORY Procedure Laterality Date - APPENDECTOMY - COLONOSCOP W/ OR W/O [facility] SPEC Colonoscopy - COLONOSCOP W/ OR W/O [facility] SPEC 10/31/05 Repeat in - MOHS 1 STAGE T/A/L 07/09 - REM LESION NEC,HAND,SCAL<0.5CM 09/23/06 Exc. right mid neck lesion FAMILY HISTORY Problem Relation Age of Onset - Colon Cancer Father - Heart Brother - Heart Brother - Heart Mother - Diabetes Mother - Hypertension Mother - Stroke Mother - Stroke Brother - Alcohol/Drug Brother Social History Substance Use Topics - Smoking status: Former Smoker Quit date: 09/30/1979 - Smokeless tobacco: Never Used - Alcohol use No MEDICATIONS: Reviewed Prescriptions Prior to Admission: aspirin, enteric coated (ASPIRIN, ENTERIC COATED) 81 mg EC tablet Take 81 mg by mouth once daily. Disp: Rfl: 06/25/2018 at Unknown time clopidogrel (PLAVIX) 75 mg tablet Take 75 mg by mouth once daily. Disp: Rfl: 06/25/2018 at Unknown time atorvastatin (LIPITOR) 10 mg tablet Take 10 mg by mouth once daily. Disp: Rfl: 06/24/2018 at Unknown time ALLERGIES No Known Allergies REVIEW OF SYSTEM: GENERAL: No weight loss, malaise or fevers HEENT: Negative for frequent or significant headaches, No changes in hearing or vision, no nose bleeds or other nasal problems NECK: Negative for lumps, goiter, pain and significant neck swelling RESPIRATORY: Negative for cough, hemoptysis, wheezing, COPD, dyspnea or shortness of breath CARDIOVASCULAR: Negative for chest pain, leg swelling, hypertension, CHF or palpitations GI: No nausea, vomiting, or diarrhea MUSCULOSKELETAL: Negative for joint pain or swelling, back pain or muscle pain SKIN: Negative for lesions, rash, and itching PSYCH: Negative for sleep disturbance, mood disorder and recent psychosocial stressors HEMATOLOGY/LYMPHOLOGY: Negative for prolonged bleeding, bruising easily or swollen nodes ENDOCRINE: Negative for cold or heat intolerance, polyuria, polydipsia and goiter NEURO: No history of headaches, syncope, paralysis, seizures or tremors Objective PHYSICAL EXAM: BP 173/77 Pulse 80 Temp (Src) 98.6 (Oral) Resp 16 Ht 5' 10 (1.78m) Wt 220 lb 12.8 oz (100.2kg) SpO2 97% BMI 31.68 kg/(m2). Physical Exam Performed: GENERAL: Alert, no distress, cooperative SKIN: Skin color, texture, turgor normal. No rashes or lesions. HEAD/SINUSES: No significant findings EYES: PERRLA, EOMI EARS: External ears normal, canals clear NOSE: Nares normal. Septum midline. OROPHARYNX: Lips, mucosa, and tongue normal. Teeth and gums normal. Oropharynx normal. NECK: No jugulovenous distention, No carotid bruits, Carotid pulse normal contour, Supple BACK: Back symmetric, Normal curvature, ROM normal, No CVAT. LUNGS: Lungs clear to auscultation, Good diaphragmatic excursion CARDIAC: Normal S1 and S2; no rubs, murmurs, or gallops ABDOMEN: Abdomen soft, non-tender, BS normal, No masses or organomegaly EXTREMITIES: Extremities normal, no deformities, edema, clubbing or skin discoloration. Good capillary refill., No ulcers NEURO: No focal neuro deficit PULSES: 2+ radial, 2+ carotid Lines, Drains, and Airways No matching active lines, drains, or airways DATA: Diagnostic tests reviewed for today's visit: Assessment/Plan Active Problems: 1. CAD (coronary artery disease): Patient was noted to have triple vessel disease CTS consulted Patient's plavix held Will continue tele monitoring Hold ASA Increased lipitor dose to 80mg. Will monitor for side effects 2. Hypertension Essential: Started on metoprolol 25 mg BID. May add lisinopril Bp is very elevated 3. Medication and Non-Pharmacologic VTE Prophylaxis/Anticoagulants 06/25/18 1645 vte non-pharmacologic prophylaxis - none indicated (fl,oh) VTE Prophylaxis: VTE prophylaxis appropriate Disposition: Home with [facility] Plan of care discussed with: Patient SIGNATURE: Braeden August MD PATIENT NAME: Krystian Child DATE: June 25, 2018 TIME: 5:03 PM PAGER/CONTACT #: [phone] [facility] HOSPon 06-25-2018 HOSP Patient:Krystian Child MRN: Height:5' 10(1.778 m) Weight:218 lb 1.6 oz (98.93 kg) Outpatient Medications as of 07/01/18: aspirin, enteric coated (ASPIRIN, ENTERIC COATED) 81 mg EC tablet clopidogrel (PLAVIX) 75 mg tablet atorvastatin (LIPITOR) 10 mg tablet Admission/Clinic Administered Medications as of 07/01/18: heparin 3,000 Units in NaCl 0.9% 500 mL irrigation PHENYLephrine 20 mg in NaCl 0.9% 250 mL (NEOSYNEPHRINE) aminocaproic acid 10 g in NaCl 0.9% 250 mL (AMicAR) dexmedetomidine 400 mcg in NaCl 0.9% 100 mL (PRECEDEX) EPINEPHrine 4 mg in NaCl 0.9% 250 mL insulin regular iv infusion 100 units in NaCl 0.9% 100 mL - AK CARD SURG NOMOGRAM nitroglycerin 100 mg in D5W 250 mL NORepinephrine 16 mg in NaCl 0.9% 250 mL (LEVOPHED) PHENYLephrine iv infusion 10 mg in NaCl 0.9% 250 mL (EMMA-SYNEPHRINE) dextrose 50 g, insulin regular human 10 Units, potassium chloride 80 mEq, lidocaine (PF) 20 mg/mL (2 %) 100 mg, magnesium sulfate 4 g in electrolyte-a (PLASMA-LYTE A) 1,000 mL solution dextrose 25 g, insulin regular human 5 Units, potassium chloride 20 mEq, lidocaine (PF) 20 mg/mL (2 %) 50 mg, magnesium sulfate 2 g in electrolyte-a (PLASMA-LYTE A) 500 mL solution NaCl 0.9% 2-10 mL ceFAZolin iv piggyback 2 g in D5W (iso-osmotic) 100 mL (ANCEF) melatonin 3 mg tab(s) acetaminophen 650 mg tab(s) (TYLENOL) docusate sodium 100 mg cap(s) (COLACE) atorvastatin 80 mg tab(s) (LIPITOR) metoprolol tartrate (short acting) 25 mg tab(s) (LOPRESSOR) enoxaparin 40 mg injection (LOVENOX) aspirin 81 mg chewable tab(s) Problem List: Hemorrhage of gastrointestinal tract, unspecified [K92.2] Internal hemorrhoids without mention of complication [K64.8] Chronic rhinitis [J31.0] Other and unspecified hyperlipidemia [E78.5] Unspecified essential hypertension [I10] Mitral valve disorders(424.0) [I05.9] SKIN CARCINOMA NECK [173.4] Personal history of other malignant neoplasm of skin [Z85.828] Other diseases of vocal cords [J38.3] Esophageal reflux [K21.9] CAD (coronary artery disease) [I25.10] Allergies: No Known Allergies Date Verified:07/01/18 Lab Values Lab Value Units Date High Low POTA* 4.0 mEq/L 06/26/2018 5.1 3.5 POPEYE* 40.6 % 06/26/2018 51.0 40.1 Progress Notes (): Braeden August MD 06/25/2018 5:27 PM Signed DEPARTMENT OF HOSPITAL MEDICINE HISTORY AND PHYSICAL EXAM SERVICE DATE: 06/25/2018 SERVICE TIME: 5:04 PM Primary Care Physician: Ligia Mcrae, DO NIGHT AND WEEKEND COVERAGE: Please page [phone] from 7 Pm to 7 AM Subjective CHIEF COMPLAINT: CAD with triple vessel disease HPI: This is a 72 year old male who presents from outside hospital. He had cardiac cath and was noted to have triple vessel disease. He was then transferred here for further work up and possible CABG. He denied any chest pain. No nausea or vomiting. PAST MEDICAL HISTORY Diagnosis Date - Chronic rhinitis - Family history of malignant neoplasm of gastrointestinal tract family history of colon cancer - Hemorrhage of gastrointestinal tract, unspecified - Impotence of organic origin - Internal hemorrhoids without mention of complication - Mitral valve disorders - Other dyspnea and respiratory abnormality - SCC (squamous cell carcinoma) PAST SURGICAL HISTORY Procedure Laterality Date - APPENDECTOMY - COLONOSCOP W/ OR W/O [facility] SPEC Colonoscopy - COLONOSCOP W/ OR W/O [facility] SPEC 10/31/05 Repeat in - MOHS 1 STAGE T/A/L 07/09 - REM LESION NEC,HAND,SCAL<0.5CM 09/23/06 Exc. right mid neck lesion FAMILY HISTORY Problem Relation Age of Onset - Colon Cancer Father - Heart Brother - Heart Brother - Heart Mother - Diabetes Mother - Hypertension Mother - Stroke Mother - Stroke Brother - Alcohol/Drug Brother Social History Substance Use Topics - Smoking status: Former Smoker Quit date: 09/30/1979 - Smokeless tobacco: Never Used - Alcohol use No MEDICATIONS: Reviewed Prescriptions Prior to Admission: aspirin, enteric coated (ASPIRIN, ENTERIC COATED) 81 mg EC tablet Take 81 mg by mouth once daily. Disp: Rfl: 06/25/2018 at Unknown time clopidogrel (PLAVIX) 75 mg tablet Take 75 mg by mouth once daily. Disp: Rfl: 06/25/2018 at Unknown time atorvastatin (LIPITOR) 10 mg tablet Take 10 mg by mouth once daily. Disp: Rfl: 06/24/2018 at Unknown time ALLERGIES No Known Allergies REVIEW OF SYSTEM: GENERAL: No weight loss, malaise or fevers HEENT: Negative for frequent or significant headaches, No changes in hearing or vision, no nose bleeds or other nasal problems NECK: Negative for lumps, goiter, pain and significant neck swelling RESPIRATORY: Negative for cough, hemoptysis, wheezing, COPD, dyspnea or shortness of breath CARDIOVASCULAR: Negative for chest pain, leg swelling, hypertension, CHF or palpitations GI: No nausea, vomiting, or diarrhea MUSCULOSKELETAL: Negative for joint pain or swelling, back pain or muscle pain SKIN: Negative for lesions, rash, and itching PSYCH: Negative for sleep disturbance, mood disorder and recent psychosocial stressors HEMATOLOGY/LYMPHOLOGY: Negative for prolonged bleeding, bruising easily or swollen nodes ENDOCRINE: Negative for cold or heat intolerance, polyuria, polydipsia and goiter NEURO: No history of headaches, syncope, paralysis, seizures or tremors Objective PHYSICAL EXAM: BP 173/77 Pulse 80 Temp (Src) 98.6 (Oral) Resp 16 Ht 5' 10 (1.78m) Wt 220 lb 12.8 oz (100.2kg) SpO2 97% BMI 31.68 kg/(m2). Physical Exam Performed: GENERAL: Alert, no distress, cooperative SKIN: Skin color, texture, turgor normal. No rashes or lesions. HEAD/SINUSES: No significant findings EYES: PERRLA, EOMI EARS: External ears normal, canals clear NOSE: Nares normal. Septum midline. OROPHARYNX: Lips, mucosa, and tongue normal. Teeth and gums normal. Oropharynx normal. NECK: No jugulovenous distention, No carotid bruits, Carotid pulse normal contour, Supple BACK: Back symmetric, Normal curvature, ROM normal, No CVAT. LUNGS: Lungs clear to auscultation, Good diaphragmatic excursion CARDIAC: Normal S1 and S2; no rubs, murmurs, or gallops ABDOMEN: Abdomen soft, non-tender, BS normal, No masses or organomegaly EXTREMITIES: Extremities normal, no deformities, edema, clubbing or skin discoloration. Good capillary refill., No ulcers NEURO: No focal neuro deficit PULSES: 2+ radial, 2+ carotid Lines, Drains, and Airways No matching active lines, drains, or airways DATA: Diagnostic tests reviewed for today's visit: Assessment/Plan Active Problems: 1. CAD (coronary artery disease): Patient was noted to have triple vessel disease CTS consulted Patient's plavix held Will continue tele monitoring Hold ASA Increased lipitor dose to 80mg. Will monitor for side effects 2. Hypertension Essential: Started on metoprolol 25 mg BID. May add lisinopril Bp is very elevated 3. Medication and Non-Pharmacologic VTE Prophylaxis/Anticoagulants 06/25/18 1645 vte non-pharmacologic prophylaxis - none indicated (mn,dc) VTE Prophylaxis: VTE prophylaxis appropriate Disposition: Home with [facility] Plan of care discussed with: Patient SIGNATURE: Braeden August MD PATIENT NAME: Krystian Child DATE: June 25, 2018 TIME: 5:03 PM PAGER/CONTACT #: [phone] Braeden August MD 06/26/2018 8:49 AM Signed DEPARTMENT OF HOSPITAL MEDICINE PROGRESS NOTE SERVICE DATE: 06/26/2018 SERVICE TIME: 8:41 AM Hospital Medicine/Primary Attending: Braeden August MD NIGHT AND WEEKEND COVERAGE: Please page [phone] from 7 PM to 7 AM Subjective INTERVAL HPI: Reports doing well. Denied fever and chills. Noted fair night rest. MEDICATIONS: Reviewed Objective PHYSICAL EXAM: BP 149/77 Pulse 72 Temp (Src) 98.2 (Oral) Resp 18 Ht 5' 10 (1.78m) Wt 220 lb 12.8 oz (100.2kg) SpO2 97% BMI 31.68 kg/(m2). Physical Exam Performed GENERAL: Alert, no distress, cooperative SKIN: Skin color, texture, turgor normal. No rashes or lesions. HEAD/SINUSES: No significant findings EYES: PERRLA, EOMI EARS: External ears normal, canals clear NOSE: Nares normal. Septum midline. OROPHARYNX: Lips, mucosa, and tongue normal. Teeth and gums normal. Oropharynx normal. BACK: Back symmetric, Normal curvature, ROM normal, No CVAT. LUNGS: Lungs clear to auscultation, Good diaphragmatic excursion CARDIAC: Normal S1 and S2; no rubs, murmurs, or gallops ABDOMEN: Abdomen soft, non-tender, BS normal, No masses or organomegaly EXTREMITIES: Extremities normal, no deformities, edema, clubbing or skin discoloration. Good capillary refill., No ulcers NEURO: No focal neuro deficit PULSES: 2+ radial, 2+ carotid Lines, Drains, and Airways Line Peripheral Double Lumen 06/25/18 1600 Admission to Hospital Left Antecubital 20 Gauge less than 1 day DATA: Diagnostic tests reviewed for today's visit: Assessment/Plan 1. CAD (coronary artery disease) POA: Yes Positive triple vessel disease Awaiting CTS input Continue current management 2D Echo and Carotid US ordered 2. Hypertension Essential: Better controlled Continue current medications 3. Hyperlipidemia: On statin. Cholesterol fairly controlled May decrease dose of lipitor to 40 mg. Baseline liver function obtained Medication and Non-Pharmacologic VTE Prophylaxis/Anticoagulants Anticoagulant AND Antiplatelet Medications Start Dose Route Frequency Ordered Stop 06/26/18 0900 aspirin 81 mg chewable tab(s) 81 mg ORAL DAILY 06/25/18 1753 -- 06/25/18 1730 enoxaparin 40 mg injection (LOVENOX) 40 mg SUBCUTANEOUS EVERY 24 HOURS 06/25/18 1712 -- 06/25/18 1645 vte non-pharmacologic prophylaxis - none indicated (fl,oh) VTE Prophylaxis: VTE prophylaxis appropriate Disposition: Home Plan of care discussed with: Patient SIGNATURE: Braeden August MD PATIENT NAME: Krystian Child DATE: June 26, 2018 TIME: 8:41 AM PAGER/CONTACT #: [phone] Oscar Villanueva MD 06/27/2018 11:42 AM Addendum CARDIOTHORACIC SURGERY CONSULT / HANDP SERVICE DATE: 06/26/2018 SERVICE TIME: 11:38 AM Subjective PRIMARY SERVICE: Cardiothoracic Surgery CHIEF COMPLAINT: CAD and angina HPI: This is a 72 year old male with PMHX of HTN, HLD who presents with history of angina and SOB. He was referred by his PCP For a stress test that was read as abnormal. He was plavix loaded and underwent cardiac catheterization 06/25/[address] Stubbs at [facility]. He reports he was in [place] a few years ago on a missions trip, was extremely fatigued and had an episode where he could not talk. He was treated and released in [place] and returned to the [place] where a CT scan revealed a possible small infarct. He had a similar episode a few years later. There are no residual from these episodes. He denies any thyroid disease, lung disease (ex-smoker quit 30+ years ago), DM, liver disease, abnormal bleeding or clotting. Patient is Able to Perform the Following Physical Activity: Climb a flight of stairs or walk up a hill (5.50 METs) Patient has the following medical comorbidities which might affect the perioperative course: - CAD of the [place] vessel. No interventions.. PAST MEDICAL HISTORY Diagnosis Date - Chronic rhinitis - Family history of malignant neoplasm of gastrointestinal tract family history of colon cancer - Hemorrhage of gastrointestinal tract, unspecified - Impotence of organic origin - Internal hemorrhoids without mention of complication - Mitral valve disorders - Other dyspnea and respiratory abnormality - SCC (squamous cell carcinoma) PAST SURGICAL HISTORY Procedure Laterality Date - APPENDECTOMY - COLONOSCOP W/ OR W/O [facility] SPEC Colonoscopy - COLONOSCOP W/ OR W/O [facility] SPEC 10/31/05 Repeat in - MOHS 1 STAGE T/A/L 07/09 - REM LESION NEC,HAND,SCAL<0.5CM 09/23/06 Exc. right mid neck lesion FAMILY HISTORY Problem Relation Age of Onset - Colon Cancer Father - Heart Brother - Heart Brother - Heart Mother - Diabetes Mother - Hypertension Mother - Stroke Mother - Stroke Brother - Alcohol/Drug Brother Social History Substance Use Topics - Smoking status: Former Smoker Quit date: 09/30/1979 - Smokeless tobacco: Never Used - Alcohol use No Prescriptions Prior to Admission: aspirin, enteric coated (ASPIRIN, ENTERIC COATED) 81 mg EC tablet Take 81 mg by mouth once daily. Disp: Rfl: 06/25/2018 at Unknown time clopidogrel (PLAVIX) 75 mg tablet Take 75 mg by mouth once daily. Disp: Rfl: 06/25/2018 at Unknown time atorvastatin (LIPITOR) 10 mg tablet Take 10 mg by mouth once daily. Disp: Rfl: 06/24/2018 at Unknown time aspirin, enteric coated (ASPIRIN, ENTERIC COATED) 81 mg EC tablet Take 81 mg by mouth once daily. clopidogrel (PLAVIX) 75 mg tablet Take 75 mg by mouth once daily. atorvastatin (LIPITOR) 10 mg tablet Take 10 mg by mouth once daily. ALLERGIES No Known Allergies REVIEW OF SYSTEMS: PAIN ASSESSMENT: Negative for pain, history of chronic pain, or current treatment for a chronic pain condition. GENERAL: No weight loss, malaise or fevers RESPIRATORY: Negative for cough, wheezing or shortness of breath. CARDIOVASCULAR: Positive for exertion CP and SOB GI: Negative for abdominal discomfort, blood in stools or black stools or change in bowel habits : No history of dysuria, frequency or incontinence MUSCULOSKELETAL: Negative for joint pain or swelling, back pain or muscle pain. SKIN: Negative for lesions, rash, and itching. HEMATOLOGY/LYMPHOLOGY Negative for prolonged bleeding, bruising easily or swollen nodes. ENDOCRINE: Negative for cold or heat intolerance, polyuria, polydipsia and goiter. NEURO: No history of headaches, syncope, paralysis, seizures or tremors and questionable Hx of CVA/TIA, no residual All other systems reviewed and negative Objective PHYSICAL EXAM: BP 151/73 Pulse 68 Temp 36.4 ?C (97.5 ?F) (Oral) Resp 16 Ht 177.8 cm (5' 10) Wt 100.2 kg (220 lb 12.8 oz) SpO2 95% BMI 31.68 kg/m? Body surface area is 2.22 meters squared. STS RISK CALCULATOR: Estimate 0.762% pending carotid and PFT General Appearance: well developed and no distress Skin: warm and dry Neck: carotid bruits L>R Lungs: clear and respiratory effort: normal Heart: S1, S2 normal and murmur slight systolic 2/6, low Peripheral Vascular/Arteries: pulses intact Abdomen: soft, round, non-tender and bowel sounds present Neurologic/Psychiatric: oriented to time, place and person Extremities: normal exam of the extremities and no edema Lines, Drains, and Airways Line Peripheral Double Lumen 06/25/18 1600 Admission to Hospital Left Antecubital 20 Gauge less than 1 day DATA: Diagnostic tests reviewed for today's visit: Significant Lab Results: As Below Cardiac Catheterization: Official report is pending, images available in Epic. 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 Chest X-RAY: Pending ECHO: CONCLUSIONS: - Technically difficult exam due to Limited Subcostals. - Exam indication: Acute chest pain with suspected MN - The left ventricle is normal in size. There is no left ventricular hypertrophy. Left ventricular systolic function is normal. EF = 55 ? 5% (visual est.) Grade I left ventricular diastolic dysfunction. Possible mild inferior wall hypokinesis - The right ventricle is normal in size. Right ventricular systolic function is normal. - The visualized aorta is borderline dilated with a maximal dimension of 3.8 cm. - Mild MR. - Mild AR. - The patient has not had a prior CC echocardiographic exam for comparison. Stress Test: Abnormal, ischemia basal inferior. With preserved EF Recent Labs 06/26/18 0340 HBA1C 5.4 RBC 4.39* WBC 6.57 HB 14.0 HCT 40.6 PLT 162 NA 139 K 4.0 CHLOR 108* CO2 26 BUN 19* CREAT 1.03 GLUC 97 CA 8.2* MG 2.1 TPROT 6.7 TBILI 0.6 ALKPHOS 49 ALT 24 AST 13 ANION 9 Assessment/Plan Active Problems: CAD (coronary artery disease) POA: Yes Assessment AND Plan: -will ask [facility] to re-send cath report, description of cath does not match the patient (report describes stents, but Mr Child has never had stents. -Distal left main disease, LAD, and PHY THERAPIST of RCA -Plavix loaded: 06/23 300 mg, 06/24 75 mg, 2/ 75 mg - Needs 5 day washout -Earliest OR is 06/30. -Echo with mild MR and AR, EF 55% -Carotids pending for Hx of TIA/CVA Resolved Problems: * No resolved hospital problems. * Tests/Labs Ordered: 1. Chest X-ray 2. CBC 3. CMP 4. HbA1c (average sugar test) 5. Lipids 6. Thyroid Function 7. Urinalysis 8. Bedside spirometry 9. Echo 10. Carotid US These findings will be communicated back to the requesting provider electronically. SIGNATURE: Orlando Jacobs APRN.REHAN PATIENT NAME: Krystian Child DATE: June 26, 2018 TIME: 11:38 AM PAGER/CONTACT #: [phone] Attending Note I have personally performed a face to face assessment of the patient and have reviewed the PA/EXECUTIVE ADMINISTRATIVE ASSISTANT note. My bean findings include: Assessment/Plan are 72 year old man experiencing exertional fatigue, chest pressure and dyspnea; stress test +; cath c/w severe LM, LAD, circ and RCA disease with normal LV. Echo pending. In setting of HTN, HLD, obesity, remote tobacco, remote lacunar infarct, +FH. I agree with the recommendation for MV CABG. The risks, benefits, and anticipated outcomes of the procedure; the risks and benefits of the alternatives to the procedure; and the roles and tasks of the personnel to be involved were discussed with the patient and he consents to the procedure and agrees to proceed. OR later this week to allow plavix washout. Other additions or changes: None Signature: Oscar Villanueva MD Date: 06/27/2018 Time: 11:40 AM Previous Version Braeden August MD 06/27/2018 9:57 AM Signed DEPARTMENT OF HOSPITAL MEDICINE PROGRESS NOTE SERVICE DATE: 06/27/2018 SERVICE TIME: 9:47 AM Hospital Medicine/Primary Attending: Braeden August MD NIGHT AND WEEKEND COVERAGE: Please Page [phone] from 7 PM to 7 AM Subjective INTERVAL HPI: Reports feeling well. Denied fever and chills No chest pain MEDICATIONS: Reviewed Objective PHYSICAL EXAM: BP 147/78 Pulse 65 Temp (Src) 98.2 (Oral) Resp 14 Ht 5' 10 (1.78m) Wt 220 lb 12.8 oz (100.2kg) SpO2 97% BMI 31.68 kg/(m2). Physical Exam Performed GENERAL: Alert, no distress, cooperative SKIN: Skin color, texture, turgor normal. No rashes or lesions. HEAD/SINUSES: No significant findings EYES: PERRLA, EOMI EARS: External ears normal, canals clear NOSE: Nares normal. Septum midline. OROPHARYNX: Lips, mucosa, and tongue normal. Teeth and gums normal. Oropharynx normal. NECK: No jugulovenous distention, No carotid bruits, Carotid pulse normal contour, Supple BACK: Back symmetric, Normal curvature, ROM normal, No CVAT. LUNGS: Lungs clear to auscultation, Good diaphragmatic excursion CARDIAC: Normal S1 and S2; no rubs, murmurs, or gallops ABDOMEN: Abdomen soft, non-tender, BS normal, No masses or organomegaly EXTREMITIES: Extremities normal, no deformities, edema, clubbing or skin discoloration. Good capillary refill., No ulcers NEURO: no focal neuro deficit PULSES: 2+ radial, 2+ carotid Lines, Drains, and Airways Line Peripheral Double Lumen 06/25/18 1600 Admission to Hospital Left Antecubital 20 Gauge 1 day DATA: Diagnostic tests reviewed for today's visit: Assessment/Plan 1. CAD (coronary artery disease) POA: Yes Triple vessel disease Continue to monitor Awaiting CTS for possible CABG 2. Hypertension Essential: Better controlled Continue metoprolol 3. Hyperlipidemia: Continue statin Medication and Non-Pharmacologic VTE Prophylaxis/Anticoagulants Anticoagulant AND Antiplatelet Medications Start Dose Route Frequency Ordered Stop 06/26/18 0900 aspirin 81 mg chewable tab(s) 81 mg ORAL DAILY 06/25/18 1753 -- 06/25/18 1730 enoxaparin 40 mg injection (LOVENOX) 40 mg SUBCUTANEOUS EVERY 24 HOURS 06/25/18 1712 -- 06/25/18 1645 vte non-pharmacologic prophylaxis - none indicated (mn,oh) VTE Prophylaxis: VTE prophylaxis appropriate Disposition: Home Plan of care discussed with: Patient SIGNATURE: Braeden August MD PATIENT NAME: Krystian Child DATE: June 27, 2018 TIME: 9:47 AM PAGER/CONTACT #: [phone] Braeden August MD 06/28/2018 8:39 AM Signed DEPARTMENT OF HOSPITAL MEDICINE PROGRESS NOTE SERVICE DATE: 06/28/2018 SERVICE TIME: 8:31 AM Hospital Medicine/Primary Attending: Braeden August MD NIGHT AND WEEKEND COVERAGE: Please page [phone] from 7 PM to 7 AM Subjective INTERVAL HPI: Reports feeling better. Denied fever and chills. No chest pain. No nausea or vomiting. MEDICATIONS: Reviewed Objective PHYSICAL EXAM: BP 119/70 Pulse 65 Temp (Src) 97.9 (Oral) Resp 18 Ht 5' 10 (1.78m) Wt 220 lb 12.8 oz (100.2kg) SpO2 95% BMI 31.68 kg/(m2). Physical Exam Performed GENERAL: Alert, no distress, cooperative SKIN: Skin color, texture, turgor normal. No rashes or lesions. HEAD/SINUSES: No significant findings EYES: PERRLA, EOMI EARS: External ears normal, canals clear NOSE: Nares normal. Septum midline. OROPHARYNX: Lips, mucosa, and tongue normal. Teeth and gums normal. Oropharynx normal. NECK: No jugulovenous distention, No carotid bruits, Carotid pulse normal contour, Supple BACK: Back symmetric, Normal curvature, ROM normal, No CVAT. LUNGS: Lungs clear to auscultation, Good diaphragmatic excursion CARDIAC: Normal S1 and S2; no rubs, murmurs, or gallops ABDOMEN: Abdomen soft, non-tender, BS normal, No masses or organomegaly EXTREMITIES: Extremities normal, no deformities, edema, clubbing or skin discoloration. Good capillary refill., No ulcers NEURO: No focal neuro deficit PULSES: 2+ radial, 2+ carotid Lines, Drains, and Airways Line Peripheral Double Lumen 06/25/18 1600 Admission to Hospital Left Antecubital 20 Gauge 2 days DATA: Diagnostic tests reviewed for today's visit: Assessment/Plan 1. CAD (coronary artery disease) POA: Yes With triple Vessel disease Awaiting CTS to schedule CABG Continue to monitor Continue tele 2. Hypertension Essential: Stable. Continue current BP medication 3. Hyperlipidemia: On statin. Resolved Problems: * No resolved hospital problems. * Medication and Non-Pharmacologic VTE Prophylaxis/Anticoagulants Anticoagulant AND Antiplatelet Medications Start Dose Route Frequency Ordered Stop 06/26/18 0900 aspirin 81 mg chewable tab(s) 81 mg ORAL DAILY 06/25/18 1753 -- 06/25/18 1730 enoxaparin 40 mg injection (LOVENOX) 40 mg SUBCUTANEOUS EVERY 24 HOURS 06/25/18 1712 -- 06/25/18 1645 vte non-pharmacologic prophylaxis - none indicated (mn,oh) VTE Prophylaxis: VTE prophylaxis appropriate Disposition: Home Plan of care discussed with: Patient SIGNATURE: Braeden Augsut MD PATIENT NAME: Krystian Child DATE: June 28, 2018 TIME: 8:31 AM PAGER/CONTACT #: [phone] Keisha Tamayo RN, RN 06/28/2018 4:03 PM Signed CARE MANAGEMENT: ASSESSMENT AND DISCHARGE PLAN SERVICE DATE: 06/28/2018 SERVICE TIME: 4:01 PM PRIMARY CARE PHYSICIAN: Ligia Mcrae DO ADMISSION STATUS: Inpatient Needs Prior to Discharge: Home Care Order MEDICAL: Patient/Threat Monitoring Analyst Stated Goals: To have reduction in symptoms Health Insurance: [employer] MEDICARE PPO [employer] Medicare Health Issues Impacting Discharge Plan: None Last Admission Date: none Is this Within the Past 30 days? No Advance Directive: Current Advance Directive: Health Care Power of [place] Boss;Living Will In Chart: No Marketing Program Manager Attempted to Assist with AD Completion: No Unable to Assist Due To:: Other: See Comment (Pts will bring copies in from home. ) Health Literacy: 1. How often do you need to have someone help you when you read instructions, pamphlets, or other written material from your doctor or pharmacy? Never - 1 2. How confident are you filling out medical forms by yourself? Extremely - 1 If Patient scores > 3 on either question, the following interventions were put into place: Patient did not score > 3 FUNCTIONAL AND COGNITIVE/BEHAVIORAL PRIOR TO ADMISSION: Baseline Mental Status: Alert AND Oriented, Person, Place , Time and Situation Functional Status: Independent Does Patient Currently Receive Any Community Services or Home Care? None Equipment Prior to Admission: None Has the Patient Been in a Shelter Facility in the Past 30 days? No SOCIAL: Living Arrangement: Home Lives With: Spouse Financial Resources: Retired Primary Contact: Extended Emergency Contact Information Primary Emergency Contact: Bozena Child [address]: [address] [place] [address] [place] [address] Relation: Spouse Supportive: Yes Other Important Patient Contacts: None Caregiver Assessment: Caregiver is ready, willing and able to meet the patient's needs as recommended by the inter-professional team? No Caregiver Needed Patient's transition needs and plan for meeting these needs: . Does the patient have an acute stroke diagnosis, or has the patient had a stroke during this admission? No Medication Adherence: I am convinced of the importance of my prescription medication: Agree mostly - 0 I worry that my prescription medication will do more harm than good to me Disagree mostly - 0 I feel financially burdened by my [id number] expenses for my prescription medication: Disagree mostly -0 Patient is categorized as low risk < 2 Are you interested in bedside delivery of your medications? Yes Food Concerns: In the Last Month, Have You had Trouble Getting Food? No trouble getting food During the Last Month, Have You Worried Whether Your Food Would Run Out Before You Had Enough Money to Buy More? No Is the Patient Psychosocially Complex? No ASSESSMENT AND PLAN: Medical Needs: None Psychosocial Needs: None FREEDOM OF CHOICE EXPLAINED: Preference: [facility] or [facility] POTENTIAL TRANSITION PLANS Home Home Care Spoke with pt at the bedside. Pt states that he lives at home with his myrna STILL. Plan CABG this . Anticipate need for [facility]hc post op- pt would like [facility] ( if unable would like [facility]). Will follow. SIGNATURE: Keisha Tamayo RN PATIENT NAME: Krystian Child DATE: June 28, 2018 TIME: 4:01 PM PAGER/CONTACT #: [phone] Braeden August MD 06/29/2018 9:35 AM Signed DEPARTMENT OF [facility] MEDICINE PROGRESS NOTE SERVICE DATE: 06/29/2018 SERVICE TIME: 9:32 AM Hospital Medicine/Primary Attending: Braeden August MD NIGHT AND WEEKEND COVERAGE: Please page [phone] from 7 PM to 7 AM Subjective INTERVAL HPI: Reports feeling well. Denied fever and chills. No chest pain. MEDICATIONS: Reviewed Objective PHYSICAL EXAM: BP 163/75 Pulse 68 Temp (Src) 97.7 (Oral) Resp 18 Ht 5' 10 (1.78m) Wt 220 lb 12.8 oz (100.2kg) SpO2 98% BMI 31.68 kg/(m2). Physical Exam Performed GENERAL: Alert, no distress, cooperative SKIN: Skin color, texture, turgor normal. No rashes or lesions. HEAD/SINUSES: No significant findings EYES: PERRLA, EOMI EARS: External ears normal, canals clear NOSE: Nares normal. Septum midline. OROPHARYNX: Lips, mucosa, and tongue normal. Teeth and gums normal. Oropharynx normal. NECK: No jugulovenous distention, No carotid bruits, Carotid pulse normal contour, Supple BACK: Back symmetric, Normal curvature, ROM normal, No CVAT. LUNGS: Lungs clear to auscultation, Good diaphragmatic excursion CARDIAC: Normal S1 and S2; no rubs, murmurs, or gallops ABDOMEN: Abdomen soft, non-tender, BS normal, No masses or organomegaly EXTREMITIES: Extremities normal, no deformities, edema, clubbing or skin discoloration. Good capillary refill., No ulcers NEURO: No focal neuro deficit PULSES: 2+ radial, 2+ carotid Lines, Drains, and Airways Line Peripheral Double Lumen 06/25/18 1600 Admission to Hospital Left Antecubital 20 Gauge 3 days DATA: Diagnostic tests reviewed for today's visit: Assessment/Plan 1. CAD (coronary artery disease): With triple vessel disease Awaiting CABG Cardiothoracic following Continue to monitor Continue tele 2. Hypertension essential: Continue beta travis BGL elevated this morning 3. Hyperlipidemia: On statin. May need to decrease. Medication and Non-Pharmacologic VTE Prophylaxis/Anticoagulants Anticoagulant AND Antiplatelet Medications Start Dose Route Frequency Ordered Stop 06/26/18 0900 aspirin 81 mg chewable tab(s) 81 mg ORAL DAILY 06/25/18 1753 -- 06/25/18 1730 enoxaparin 40 mg injection (LOVENOX) 40 mg SUBCUTANEOUS EVERY 24 HOURS 06/25/18 1712 -- 06/25/18 1645 vte non-pharmacologic prophylaxis - none indicated (mn,oh) VTE Prophylaxis: VTE prophylaxis appropriate Disposition: Home Plan of care discussed with: Patient SIGNATURE: Braeden August MD PATIENT NAME: Krystian Child DATE: June 29, 2018 TIME: 9:32 AM PAGER/CONTACT #: [phone] Zechariah Pedroza APRN.ELAINE VAN 06/30/2018 10:23 AM Signed CARDIOTHORACIC SURGERY PLAN OF CARE SERVICE DATE: June 30, 2018 SERVICE TIME: 10:23 AM Visited patient today. Offered the cardiac surgery binder. I went over post-op recovery expectations (ICU and [id number]) with patient. As well as went over briefly with the content from the cardiac surgery book. Patient is also offered IS for pre-op lung function optimization. Pre-op check list reviewed: most workups are completed. Pre-op preparation orders placed, including: NPO, meds(BB+ASA), CHG bath, IS orders. MRSA result reviewed and treatment order reviewed, blood products ordered x2. Questions and concerns are addressed. Family at bedside. Patient has no questions at this point. ELAINE Jackson, RN, RN 06/30/2018 10:36 AM Signed CARE MANAGEMENT PROGRESS NOTE SERVICE DATE: 06/30/2018 SERVICE TIME: 10:35 AM LOS: 5 days Chart reviewed. Plan CABG. Anticipate home with hhc- [facility] able to accept post op. Will follow. SIGNATURE: Keisha Tamayo RN PATIENT NAME: Krystian Child DATE: June 30, 2018 TIME: 10:35 AM PAGER/CONTACT #: [phone] Wallace Barrientos MD 06/30/2018 4:42 PM Signed INPATIENT PROGRESS NOTE CHIEF COMPLAINT: CP INTERVAL HPI: no new complaints. Scheduled for CABG in am. PHYSICAL EXAM: BP 145/63 Pulse 66 Temp (Src) 97.9 (Oral) Resp 18 Ht 5' 10 (1.78m) Wt 220 lb 12.8 oz (100.2kg) SpO2 100% BMI 31.68 kg/(m2). GENERAL: Alert, no distress, cooperative LUNGS: Lungs clear to auscultation, Good diaphragmatic excursion CARDIAC: Normal S1 and S2; no rubs, murmurs, or gallops ABDOMEN: Abdomen soft, non-tender, BS normal, No masses or organomegaly EXTREMITIES: no edema DATA: Diagnostic tests reviewed for today's visit: CBC, Coags, BMP, Mg, Phos Invalid input(s): ICA Assessment/Plan 1. CAD (coronary artery disease): With triple vessel disease Awaiting CABG in am ? 2. Hypertension essential: Stable ? 3. Hyperlipidemia: On statin. ?4. DVT PPX- lovenox. Hold tomorrow SIGNATURE: Wallace Barrientos MD PATIENT NAME: Krystian Child DATE: June 30, 2018 TIME: 4:40 PM PAGER: Jamal Bauer MD 07/01/2018 7:12 AM Signed ANESTHESIOLOGY DAY OF SURGERY NOTE SERVICE DATE: 07/01/2018 SERVICE TIME: 7:00 AM : 1945 Procedure(s) (LRB): BYPASS GRAFT ARTERY CORONARY ON-PUMP THREE CORONARY ARTERIAL GRAFTS (N/A) Surgeon(s): Oscar Villanueva Estimated body mass index is 31.29 kg/m? as calculated from the following: Height as of this encounter: 177.8 cm (5' 10). Weight as of this encounter: 98.9 kg (218 lb 1.6 oz). Most recent hematocrit and potassium results: Hematocrit 40.6 06/26/2018 Potassium 4.0 06/26/2018 ANES DOS/PREOP NOTE: Vitals: 06/30/18 2100 07/01/18 0025 07/01/18 0529 07/01/18 0632 BP: 162/66 133/67 139/80 147/71 Pulse: 82 69 67 70 Resp: 18 18 18 16 Temp: 36.8 ?C (98.2 ?F) 36.7 ?C (98.1 ?F) 36.7 ?C (98.1 ?F) 36.8 ?C (98.2 ?F) TempSrc: Oral Oral Oral Temporal Artery SpO2: 95% 99% 95% 96% Weight: 98.9 kg (218 lb 1.6 oz) Height: ACTIVE PROBLEM LIST Hemorrhage of Gastrointestinal Tract, Unspecified Internal Hemorrhoids Without Mention of Complication Chronic Rhinitis Other and Unspecified Hyperlipidemia Unspecified Essential Hypertension Mitral Valve Disorders(424.0) SKIN CARCINOMA NECK Personal History of Other Malignant Neoplasm of Skin Other Diseases of Vocal Cords Esophageal Reflux Cad (Coronary Artery Disease) PAST MEDICAL HISTORY Diagnosis Date - Chronic rhinitis - Family history of malignant neoplasm of gastrointestinal tract family history of colon cancer - Hemorrhage of gastrointestinal tract, unspecified - Impotence of organic origin - Internal hemorrhoids without mention of complication - Mitral valve disorders(424.0) - Other dyspnea and respiratory abnormality - SCC (squamous cell carcinoma) PAST SURGICAL HISTORY Procedure Laterality Date - APPENDECTOMY - COLONOSCOP W/ OR W/O BRS SPEC Colonoscopy - COLONOSCOP W/ OR W/O BRSH SPEC 10/31/05 Repeat in - MOHS 1 STAGE T/A/L 07/09 - REM LESION NEC,HAND,SCAL<0.5CM 09/23/06 Exc. right mid neck lesion FAMILY HISTORY Problem Relation Age of Onset - Colon Cancer Father - Heart Brother - Heart Brother - Heart Mother - Diabetes Mother - Hypertension Mother - Stroke Mother - Stroke Brother - Alcohol/Drug Brother Social History: Social History Substance Use Topics - Smoking status: Former Smoker Quit date: 09/30/1979 - Smokeless tobacco: Never Used - Alcohol use No No current facility-administered medications on file prior to encounter. No current outpatient prescriptions on file prior to encounter. Current Facility-Administered Medications: [MAR Hold due to Transfer] heparin 3,000 Units in NaCl 0.9% 500 mL irrigation 3,000 Units IRRIGATION ONCE Oscar A Lahorra [MAR Hold due to Transfer] PHENYLephrine 20 mg in NaCl 0.9% 250 mL (NEOSYNEPHRINE) 25-300 mcg/min INTRAVENOUS ONCE Oscar A [JUL Hold due to Transfer] aminocaproic acid 10 g in NaCl 0.9% 250 mL (AMicAR) 1 g/hr INTRAVENOUS ONCE Oscar A [JUL Hold due to Transfer] dexmedetomidine 400 mcg in NaCl 0.9% 100 mL (PRECEDEX) 0.2-0.7 mcg/kg/hr INTRAVENOUS ONCE Oscar A [JUL Hold due to Transfer] EPINEPHrine 4 mg in NaCl 0.9% 250 mL 0.5-10 mcg/min INTRAVENOUS ONCE Oscar A rra [JUL Hold due to Transfer] insulin regular iv infusion 100 units in NaCl 0.9% 100 mL - AK CARD SURG NOMOGRAM 0-12 Units/hr INTRAVENOUS ONCE Oscar A [JUL Hold due to Transfer] nitroglycerin 100 mg in D5W 250 mL 5-20 mcg/min INTRAVENOUS ONCE Oscar A [JUL Hold due to Transfer] NORepinephrine 16 mg in NaCl 0.9% 250 mL (LEVOPHED) 0-20 mcg/min INTRAVENOUS ONCE Oscar A [JUL Hold due to Transfer] PHENYLephrine iv infusion 10 mg in NaCl 0.9% 250 mL (EMMA-SYNEPHRINE) 0-100 mcg/min INTRAVENOUS ONCE Oscar Hanna [JUL Hold due to Transfer] dextrose 50 g, insulin regular human 10 Units, potassium chloride 80 mEq, lidocaine (PF) 20 mg/mL (2 %) 100 mg, magnesium sulfate 4 g in electrolyte-a (PLASMA-LYTE A) 1,000 mL solution MISCELLANEOUS ONCE Oscar Hanna [JUL Hold due to Transfer] dextrose 25 g, insulin regular human 5 Units, potassium chloride 20 mEq, lidocaine (PF) 20 mg/mL (2 %) 50 mg, magnesium sulfate 2 g in electrolyte-a (PLASMA-LYTE A) 500 mL solution MISCELLANEOUS ONCE Oscar Hanna [JUL Hold due to Transfer] NaCl 0.9% 2-10 mL 2-10 mL INTRAVENOUS ONCE Diogenes Caal ceFAZolin iv piggyback 2 g in D5W (iso-osmotic) 100 mL (ANCEF) 2 g INTRAVENOUS ONCE Anant Ureña (Pa) [JUL Hold due to Transfer] melatonin 3 mg tab(s) 3 mg ORAL HS PRN Braeden ungwu [JUL Hold due to Transfer] acetaminophen 650 mg tab(s) (TYLENOL) 650 mg ORAL q 6 H PRN Braeden wu [JUL Hold due to Transfer] docusate sodium 100 mg cap(s) (COLACE) 100 mg ORAL BID PRN Braeden ungwu [JUL Hold due to Transfer] atorvastatin 80 mg tab(s) (LIPITOR) 80 mg ORAL AT BEDTIME Braeden ungwu 80 mg at 06/30/182141 [JUL Hold due to Transfer] metoprolol tartrate (short acting) 25 mg tab(s) (LOPRESSOR) 25 mg ORAL q 12 H Braeden ungwu 25 mg at 07/01/18 05 [JUL Hold due to Transfer] enoxaparin 40 mg injection (LOVENOX) 40 mg SUBCUTANEOUS q 24 H Braeden Ofungwu 40 mg at 06/30/18 0923 [JUL Hold due to Transfer] aspirin 81 mg chewable tab(s) 81 mg ORAL DAILY Orlando Mouck 81 mg at 07/01/18 0530 Allergies: ALLERGIES No Known Allergies DOS EXAM: Adequate NPO Status: Yes Anesthetic Risks, Benefits, Alternatives, Personnel and Consent Discussed: Yes Patient agrees to proceed: Yes Previous Anesthesia: No history of adverse event Airway Assessment: MP 3; Neck ROM: Full ROM without neurologic symptoms; Airway Evaluation: Short Neck, Thick neck and P[place]co Present, Good jaw subluxation Symptoms of Sleep Apnea: Age over 50 (72 year old), Neck circumference > 15.75 inches and Male gender Dentition: Removable partial: upper Additional Physical Exam: Lungs: Patient health status unchanged since recent history and physical. See history and physical for exam findings. Cardiac: Patient health status unchanged since recent history and physical. See history and physical for exam findings. Additional Pertinent Findings: N/A Blood Products: Will accept Blood/Blood Products Anesthetic Plan: General Anesthetic Monitoring: Standard ASA Monitors Pain Management Plan: Parenteral or Oral ASA Class: 4 Other Medical Problems: CAD - cardiac catheterization. 06/25/2018 - plavix load given for 3 days prior to this catheterization Per cardiac surgery note, Cath showed - Distal L main disease, LAD, and PHY THERAPIST of RCA GERD Recent Lab Values WBC 6.57 06/26/2018 HGB 14.0 06/26/2018 Hematocrit 40.6 06/26/2018 Platelet Count 162 06/26/2018 INR 1.06 06/27/2018 Sodium 139 06/26/2018 Potassium 4.0 06/26/2018 Chloride 108 06/26/2018 CO2 26 06/26/2018 BUN 19 06/26/2018 Creatinine 1.03 06/26/2018 Glucose 97 06/26/2018 Calcium 8.2 06/26/2018 Magnesium 2.1 06/26/2018 No results found for this basename: GlucoseMeter Antibody Screen Date Value Ref Range Status 06/29/2018 NEGATIVE Final Chronic Beta Travis medication administered within 24 hours: Yes I have interviewed and examined the patient. I have reviewed the medical record and/or the pre-anesthesia evaluation, pertinent labs, and test results. Significant changes in the patient's condition since the History and Physical, not otherwise documented in primary service progress notes: No This contains updated information obtained within 48 hours of Surgery/Procedure. SIGNATURE: Jamal Bauer MD PATIENT NAME: Krystian Child DATE: July 01, 2018 TIME: 7:00 AM CSN: [id number] TTE (06/26/2018) CONCLUSIONS: - Technically difficult exam due to Limited Subcostals. - Exam indication: Acute chest pain with suspected MN - The left ventricle is normal in size. There is no left ventricular hypertrophy. Left ventricular systolic function is normal. EF = 55 ? 5% (visual est.) Grade I left ventricular diastolic dysfunction. Possible mild inferior wall hypokinesis - The right ventricle is normal in size. Right ventricular systolic function is normal. - The visualized aorta is borderline dilated with a maximal dimension of 3.8 cm. - Mild MR. - Mild AR. - The patient has not had a prior CC echocardiographic exam for comparison Normal [facility] MRSA Screenon 06-25-2018 MRSA DNA OJ+probe Ql (Unsp spec) Test performed at [facility] No MRSA detected. Normal [facility] Comment on above: Performed By: #### M RSA #### [address] [address] Culture, urine Bacteria identified Cx Nom (U) Citrobacter amalonaticus [facility] Work Phone: Vital Signs Date Time Vital Sign Value Performing Clinician Facility 10-05-2024 14:43-0400 Body height 177.[address] Ligia Mcrae DO Work Phone: [facility] 10-05-2024 14:43-0400 Body mass index (BMI) [Ratio] 29.5 kg/m2 Dr. Ligia Mcrae DO Work Phone: [facility] 10-05-2024 14:43-0400 Body temperature 98.7 [degF] Dr. Ligia Mcrae DO Work Phone: [facility] 10-05-2024 14:43-0400 Body weight 93.[address] Ligia Mcrae DO Work Phone: [facility] 10-05-2024 14:43-0400 Diastolic blood pressure 77 mm[Hg] Dr. Ligia Mcrae DO Work Phone: [facility] 10-05-2024 14:43-0400 Heart rate 58 /min Dr. Ligia Mcrae DO Work Phone: [facility] 10-05-2024 14:43-0400 Respiratory rate 18 /min Dr. Ligia Mcrae DO Work Phone: [facility] 10-05-2024 14:43-0400 SaO2% (BldA) [Mass fraction] 94 % Dr. Ligia Mcrae DO Work Phone: [facility] 10-05-2024 14:43-0400 Systolic blood pressure 157 mm[Hg] Dr. Ligia Mcrae DO Work Phone: [facility] 03-16-2023 10:27-0400 Body height 177.[address] Ligia Mcrae Work Phone: [facility] 03-16-2023 10:27-0400 Body mass index (BMI) [Ratio] 31.1 kg/m2 Dr. Ligia Mcrae Work Phone: [facility] 03-16-2023 10:27-0400 Body weight 98.[address] Ligia Mcrae Work Phone: [facility] 03-16-2023 10:27-0400 Diastolic blood pressure 78 mm[Hg] Dr. Ligia Mcrae Work Phone: [facility] 03-16-2023 10:27-0400 Heart rate 56 /min Dr. Ligia Mcrae Work Phone: [facility] 03-16-2023 10:27-0400 Respiratory rate 14 /min Dr. Ligia Mcrae Work Phone: [facility] 03-16-2023 10:27-0400 Systolic blood pressure 169 mm[Hg] Dr. Ligia Mcrae Work Phone: [facility] 02-05-2022 09:01-0400 Body height 179.[address] Ligia Mcrae Work Phone: [facility] Work Phone: 02-05-2022 09:01-0400 Body mass index (BMI) [Ratio] 31.1 kg/m2 Dr. Ligia Mcrae Work Phone: [facility] Work Phone: 02-05-2022 09:01-0400 Body weight 99.[address] Ligia Mcrae Work Phone: [facility] Work Phone: 10-09-2021 13:24-0400 Body height 179.[address] Ligia Mcrae Work Phone: [facility] Work Phone: 10-09-2021 13:24-0400 Body mass index (BMI) [Ratio] 30.7 kg/m2 Dr. Ligia Mcrae Work Phone: [facility] Work Phone: 10-09-2021 13:24-0400 Body temperature 98.7 [degF] Dr. Ligia Mcrae Work Phone: [facility] Work Phone: 10-09-2021 13:24-0400 Body weight 98.[address] Ligia Mcrae Work Phone: [facility] Work Phone: 10-09-2021 13:24-0400 Diastolic blood pressure 76 mm[Hg] Dr. Ligia Mcrae Work Phone: [facility] Work Phone: 10-09-2021 13:24-0400 Heart rate 66 /min Dr. Ligia Mcrae Work Phone: [facility] Work Phone: 10-09-2021 13:24-0400 Respiratory rate 15 /min Dr. Ligia Mcrae Work Phone: [facility] Work Phone: 10-09-2021 13:24-0400 SaO2% (BldA) [Mass fraction] 93 % Dr. Ligia Mcrae Work Phone: [facility] Work Phone: 10-09-2021 13:24-0400 Systolic blood pressure 151 mm[Hg] Dr. Ligia Mcrae Work Phone: [facility] Work Phone: 10-12-2019 12:59-0400 Body mass index (BMI) [Ratio] 26.8 kg/m2 Dr. Ligia Mcrae Work Phone: [facility] 10-12-2019 12:59-0400 Body temperature 97.7 [degF] Dr. Ligia Mcrae Work Phone: [facility] 10-12-2019 12:59-0400 Body weight 84.[address] Ligia Mcrae Work Phone: [facility] Work Phone: 10-12-2019 12:59-0400 Diastolic blood pressure 79 mm[Hg] Dr. Ligia Mcrea Work Phone: [facility] 10-12-2019 12:59-0400 Heart rate 62 /min Dr. Ligia Mcrae Work Phone: [facility] 10-12-2019 12:59-0400 Respiratory rate 16 /min Dr. Ligia Mcrae Work Phone: [facility] 10-12-2019 12:59-0400 SaO2% (BldA) [Mass fraction] 96 % Dr. Ligia Mcrae Work Phone: [facility] 10-12-2019 12:59-0400 Systolic blood pressure 144 mm[Hg] Dr. Ligia Mcrae Work Phone: [facility] 07-01-2018 15:24-0500 Body temperature 37.0 [facility] Comment on above: Performed By: #### P14 #### [address] [address] Encounters Encounter Date Encounter Type Care Provider Facility Start: 02-02-2025 ambulatory Ligia Thor Facility: [facility] Start: 11-23-2024 End: 11-23-[address] Ligia Mcrae DO Work Phone: -Laboratory Specimen Start: 11-23-2024 End: 11-23-[address] Ligia Mcrae DO -Laboratory Specimen Work Phone: Start: 11-23-2024 End: 11-23-2024 ambulatory Ligia Mcrae Facility:[facility] Start: 10-05-2024 End: 10-05-[address] Oscar Winkler MD -[facility] Work Phone: Start: 10-05-2024 End: 10-05-[address] Ligia Mcrae DO Work Phone: [facility] Work Phone: Start: 09-22-2024 ambulatory Ligia Mcrae Facility: [facility] Start: 09-22-[address] Oscar Winkler MD -[facility] Start: 04-22-2023 Non-patient / Non-visit Dr. Anca koch Marcandi Work Phone: [facility] Work Phone: Start: 04-21-2023 Non-patient / Non-visit Dr. Anca koch Marcandi Work Phone: [facility] Work Phone: Start: 04-20-2023 Non-patient / Non-visit Dr. Anca Fischerutzman Work Phone: [facility] Work Phone: Start: 04-20-2023 Non-patient / Non-visit Dr. Anca koch Marcandi Work Phone: [facility] Start: 04-20-2023 End: 04-20-[address] Ligia Mcrae Work Phone: [facility] Work Phone: Start: 04-20-2023 End: 04-20-[address] [facility] Start: 03-16-2023 End: 03-16-[address] Ligia Mcrae Work Phone: [facility] Work Phone: Start: 07-31-2022 End: 07-31-2022 ambulatory [facility] Work Phone: Start: 07-31-2022 End: 07-31-2022 Patient encounter procedure [facility] Start: 07-10-2022 End: 07-10-2022 ambulatory [facility] Work Phone: Start: 07-10-2022 End: 07-10-2022 Patient encounter procedure [facility] Start: 03-06-2022 End: 03-06-[address] Ligia Mcrae Work Phone: [facility] Start: 02-24-2022 End: 02-24-[address] Ligia Mcrae Work Phone: [facility] Work Phone: Start: 02-24-2022 End: 02-24-[address] Ligia Mcrae Work Phone: [facility] Start: 02-19-2022 End: 02-19-[address] Ligia Mcrae Work Phone: [facility] Work Phone: Start: 02-19-2022 End: 02-19-[address] Ligia Mcrae Work Phone: [facility]-Laboratory, Specimen Start: 02-05-2022 End: 02-05-[address] Ligia Mcrae Work Phone: [facility] Start: 01-18-2022 End: 01-18-[address] Ligia Mcrae Work Phone: [facility] Work Phone: Start: 01-18-2022 End: 01-18-[address] Ligia Mcrae Work Phone: [facility] Start: 11-05-2021 End: 11-05-[address] Ligia Mcrae Work Phone: [facility]-Radiology, [place] Start: 10-09-2021 End: 10-09-[address] Ligia Mcrae Work Phone: [facility] Start: 09-30-[address] Ligia Mcrae Work Phone: [facility] Start: 08-10-2018 End: 08-10-2018 Patient encounter procedure [place] (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 CLAIMS AIDE) [facility] Start: 07-13-2018 End: 07-13-2018 Patient encounter procedure [place] (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 CLAIMS AIDE) [facility] Start: 06-25-2018 End: 07-06-2018 Evaluation and management of inpatient [facility] Procedures Date Procedure Procedure Detail Performing Clinician Start: 09-22-[address] Ligia Mcrae DO Work Phone: Start: 09-22-[address] Ligia Mcrae DO Work Phone: Comment on above: Results are consiste nt with the presence of a lupus anticoagulant. As onlypersistent lupus anticoagulant (LA) positivity meets laboratory diagnosticcriteria for antiphospholipid syndrome, repeat testing in 12 or more weeksis recommended, ideally in the absence of anticoagulant therapy.Important Note: The results of LA testing are not valid for patientsreceiving heparin, direct Xa inhibitor (e.g., rivaroxaban, apixaban) ordirect thrombin inhibitor (e.g., dabigatran) therapy. These drugs may causefalse positive LA results but will not interfere with anticardiolipin andbeta-2 glycoprotein 1 antibody testing.Performed at: [address] [id number] Director: Kim Brito MD, Phone: [phone] Start: 09-22-2024 Lupus anticoagulant assay, platelet neutralization method Dr. Ligia Mcrae DO Work Phone: Start: 09-22-2024 Lupus anticoagulant screening test Dr. Ligia Mcrae DO Work Phone: Start: 09-22-[address] Anca Mcrae DO Work Phone: Start: 09-30-2023 Measurement of renal function Dr. Ligia Mcrae DO Work Phone: Comment on above: GFR Calc Start: 04-20-2023 Radionuclide imaging of perfusion of myocardium under exercise stress Dr. Ligia Mcrae Work Phone: Start: 07-31-2022 Plain chest X-ray Start: 07-10-2022 Radiologic examinati on of knee Start: 02-24-2022 MRI of joint of lowe r extremity Dr. Ligia Mcrae Work Phone: Start: 02-05-2022 X-ray of lumbar spin e, two or three views Dr. Ligia Mcrae Work Phone: Start: 02-05-2022 Plain x-ray of pelvi s and lower extremity Dr. Ligia Mcrae Work Phone: Start: 01-18-2022 MRI of lumbar spine Dr. Ligia Mcrae Work Phone: Start: 01-17-2022 X-ray of eye for for eign body Dr. Ligia Mcrae Work Phone: Start: 11-05-2021 Plain X-ray of shoulder Dr. Ligia Mcrae Work Phone: Start: 03-31-2019 Allergen spec ige cr ude allergen extract each Dr. Ligia Mcrae DO Work Phone: Comment on above: NOT OBSERVED Start: 07-01-2018 History of coronary artery bypass grafting H/O coronary artery bypass surgery Dr. Ligia Mcrae Work Phone: Comment on above: CABG x 4 TYLER-LAD, S VG-D1, SVG-OM1 and SVG-RCA 07/01/18 Start: 06-29-2018 Antibody screen [facility] Comment on above: Performed By: #### P 14 #### [place] [address] Ligia mckenzie Work Phone: Viral antigen assay Plan of Treatment Date Care Activity Detail Author Start: 03-06-2022 Patient referral [facility] Work Phone: Patient referral [facility] Work Phone: Payers Date Payer Category Payer Medicare [id number] 2019 Self-pay [id number] 1945 Unknown [id number] 2.16.8 [id number] 1945 Unknown [id number] 2.16.8 [id number] 1945 Unknown [id number] 2.16.8 [id number] Unknown [id number] 2.16.8 [id number] Unknown [id number] 2.16.8 [id number] Unknown [id number] 2.16.8 [id number] Unknown [id number] 2.16.8 [id number] Social History Date Type Detail Facility Start: 11-22-2020 End: 03-16-2023 Tobacco smoking status [facility] Unknown if ever smoked [facility] Start: 02-17-2019 None [facility] Start: 02-17-2019 Spouse/ Signif icant Other [facility] Start: 02-17-2019 Non-smoker [facility] Start: 1945 Sex Assigned At Male [facility] Start: 03-16-2023 Tobacco smoking status NHIS Ex-smoker (finding) [facility] Clinical Notes 07-01-2018 to 10-05-2024 Note Date & Type Note Facility 10-05-2024 Progress note [facility] 10-05-2024 Progress note Note Date/Time October 05, 2024 3:12pm [facility] [place] [address] [address] [address] OFFICE VISIT Date of Service: 10/05/24 1443 MR#: [id number] Acct: [id number] Name: KRYSTIAN CHILD Rep #: [id number] : 1945 From: Oscar Winkler MD Age/Sex: 78/M Location: [facility] Status: Signed HPI Subjective Date of Service 10/05/24 Chief Complaint F/u for lupus anticoagulant positivity. History of Present Illness 78y.o.man was admitted in January 2019 at [facility] for pneumonia. He also had R middle lobe density. CT chest in March 2019 was normal. He was found to have abnormal/increase PTT which has persisted since that admission so was referred for evaluation. He denied bleeding gums, clotting, bleeding into soft tissue, joint bleeding or family history of bleeding. He is on observation. Had repeat blood work and comes for follow up. [facility] Medical History (Updated 10/05/24 @ 15:[address] Oscar Winkler MD) Back pain Wears glasses Arthritis Former smoker Leg cramps History of stress test (~06/16/18) Hx of echocardiogram (~06/26/18) Hx of lupus anticoagulant disorder TIA (transient ischemic attack) (07/2005) Wound cellulitis after surgery Essential (primary) hypertension Atherosclerosis of coronary artery of [place] heart without angina pectoris Scoliosis Osteoarthritis DDD (degenerative disc disease), lumbar Cervical spondylosis Vitamin D deficiency Erectile dysfunction Hyperlipidemia Carotid artery disease Colon polyps Surgical History Cataract History of cardiac catheterization (~06/25/18) H/O coronary artery bypass surgery (07/01/18) History of left heart catheterization (06/25/18) Hx of colonoscopy with polypectomy (~03/2018) Hx of colonoscopy History of appendectomy Family History Father Colon cancer Mother Diabetes Heart disease Hypertension CAD (coronary artery disease) CVA (cerebral vascular accident) Brother CVA (cerebral vascular accident) Myocardial infarction age 85 CAD (coronary artery disease) Social History Smoking Status: Former smoker alcohol intake: never Intake Vital Signs 10/07/23 10:01 10/05/24 14:43 Height 5 ft 10 in 5 ft 10 in Weight: 93.185 kg BMI 29.5 BP 157/77 H Blood Pressure Location Rt brachial Position Sitting Respiration 18 Pulse 58 L Pulse Source Monitor Temp 98.7 F Temperature Source Temporal Artery Pulse Oximetry (%) 94 Oxygen Delivery Method room air Intake Is patient in pain?: No Allergies No Known Allergies Allergy (Verified 10/05/24 14:46) Medications ?Medication ?Instructions ?Recorded ?Confirmed ?Type tramadol 50 mg tablet 50 mg PO BID PRN 02/26/23 History aspirin 81 mg tablet,delayed 81 mg PO DAILY blood thin ner 03/16/23 10/05/24 History release (Adult Aspirin Regimen) methylprednisolone 4 mg tablet 4 mg PO PRN 03/16/23 History metoprolol tartrate 50 mg tablet 50 mg PO BID blood pr essure #180 05/23/24 10/05/24 Rx tabs Have you fallen in the past year?: No Central Venous Access Central Venous Access: No Exam Physical Exam Const alert, oriented x3, no apparent distress and average body habitus General Appearance: cooperative and comfortable HEENT normocephalic, external ears normal and external nose normal Eyes PERRL, conjunctivae normal and no scleral icterus Neck full ROM and supple Lymph Lymphatic: no lymphadenopathy noted Chest inspection of chest normal Resp normal respiratory effort, no use of accessory muscles and clear to auscultationbilaterally Cardio regular rate, regular rhythm, S1 normal heart sound and S2 normal heart sound GI normal to inspection, nondistended, normoactive bowel sounds Back/Spine no CVA tenderness and thoracic and lumbar spine normal to inspection Extremity normal to inspection and no clubbing, cyanosis or edema Skin no rashes or lesions noted Neuro oriented x3, moves all extremities and no focal motor deficits Psych mental status grossly normal Coding Level of Care Code Off vis,est,level 3 Exam Problem Focused Diagnoses Lupus anticoagulant positive R76.0 Assessment and Plan Assessment and Plan (1) Lupus anticoagulant positive: Status: Chronic Comment: Clinically stable, no clotting episodes. CBC and chemistry reviewed, within normal limits, still has Lupus anticoagulant positivity. Plan: To continue observation. Plan Details Follow Up: 12 Months Clinical Quality Measures Falls Risk Screening/Assistive Devices Have you fallen in the past year?: No 10/05/24 1512 <Electronically signed by Oscar Dixon> Date _ Oscar Winkler MD Cosigner Signature: Date (if applicable) CC: Dr. Ligia Mcrae, DO ~ [facility] Work Phone: [phone]) 401-859405-01-2025 Evaluation note* Diagnosis Onset Date Resolution Status Admit Date Abnormal coagulation profile chronic September 22, 2024 2:30pm Lung mass chronic September 22, 2024 2:30pm Lupus anticoagulant positive chronic September 22, 2024 2:30pm Lupus anticoagulant positive chronic October 05, 2024 2:38pm [facility] Work Phone: 1(877) 345-251102-18-2021 NotePatient Outreach (COVAMN) KRYSTIAN CHILD ([id number]) 1945 M NFR Date Time Provider Department 07/12/20 VICS, DAVID KAYE During your visit today, we recorded the following information about you: Allergies As of Date: 07/12/2020 (No Known Allergies) Date Reviewed: 08/10/2018 Reviewed by: Carley (Consumer Lender) Tess - Fully Assessed Order(s):SARS-COVID VACCINE 1ST DOSE APPT [14284XWH] Order #: [id number] FUTURE Prescriptions as of 07/12/2020 Sig: ACETAMINOPHEN 325 MG TABLET Take 2 tablets by mouth every* ATORVASTATIN 40 MG TABLET Take 1 tablet by mouth daily * METOPROLOL TARTRATE 50 MG TAB* Take 1 tablet by mouth every * ASPIRIN 81 MG TABLET,DELAYED * Take 2 tablets by mouth once * Problem List As Of Date 07/12/2020 Noted Resolved GASTROINTEST HEMORR NOS [K92.2] INT HEMORRHOID W/O COMPL [K64.8] Other dyspnea and respiratory abnormality [R06.* 02/26/2016 CHRONIC RHINITIS [J31.0] HYPERLIPIDEMIA NEC/NOS [E78.5] 08/13/2005 HYPERTENSION NOS [I10] 09/08/2005 MITRAL VALVE DISORDER [I05.9] SKIN CARCINOMA NECK [173.4] 09/29/2006 PERS HX SKIN MALIGNANCY NEC [Z85.828] 01/07/2007 VOCAL CORD DISEASE NEC [J38.3] 12/02/2007 ESOPHAGEAL REFLUX [K21.9] 12/02/2007 CAD (coronary artery disease) [I25.10] 06/25/2018 Obesity, Class I, BMI 30-34.9 [E66.9] 07/03/2018 S/P CABG x 4 [Z95.1] 07/03/2018 Encounter Status:Closed by GLENN BUTLERUSEJayleen on 07/16/20[facility] 07-01-2018 Evaluation note* Diagnosis Onset Date Resolution Status Essential (primary) hypertension chronic H/O coronary artery bypass surgery July 01, 2018 chronic Hyperlipidemia chronic [facility] Work Phone: Evaluation note* Diagnosis Onset Date Resolution Status Abnormal coagulation profile chronic Lung mass chronic 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 [facility] Work Phone: Evaluation note* Diagnosis Onset Date Resolution Status Back pain acute 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 Spinal stenosis of lumbosacral region acute Low back pain noneactive [facility] Work Phone: Evaluation note* Diagnosis Onset Date Resolution Status Back pain acute 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 Spinal stenosis of lumbosacral region acute Low back pain noneactive Spinal stenosis of lumbosacral region acute [facility] Work Phone: Evaluation noteNo assessment information available [facility] Work Phone: Hospital Discharge instructionsAmbulatory Orders* Pain Management Location: None Selected [facility] Work Phone: Reason for referral (narrative)No reason for [facility] Work Phone: Summary Purpose Family History No Family History Records Found Relationship Condition Age at Onset Recorded Date/T ch[place] father Malignant neoplasm of colon Unknown mother Diabetes mellitus Unknown Cardiac disease Unknown Hypertension Unknown Coronary artery disease Unknown Cerebrovascular accident (CVA) Unknown brother Cerebrovascular accident (CVA) Unknown Myocardial infarction Unknown Advance Directives No Advanced Directives Records Found Advance Directive Response Recorded Date/ Time Advance Directives No June 10:04am Living Will Yes November 22, 2020 1 :42pm Power of Corral Boss Yes November 22, 2020 1:42pm Advance Directive Response Recorded Date/ Time Advance Directives No June 9:04am Living Will Yes November 22, 2020 1 2:42pm Power of [employer]ral Boss Yes November 22, 2020 12:42pm Advance Directive Response Recorded Date/ Time Living Will Yes February 17, 2019 12:23pm Do you have a Healthcare Power of Corral Boss? Yes February 17, 2019 12:23pm Advance Directives No June 10:04am Hospital Course Note HNO ID: [id number] Author: Jayleen Jacobs Service: Cardiac Surgery Author Type: Nurse Practitioner Type: Discharge Summaries Filed: 07/06/2018 10:50 AM Note Text: DISCHARGE SUMMARY PATIENT NAME: Krystian Child Code Status: Not on file Highest Readmission Risk Score: 13 The 30 day readmissions risk score is derived from an internally validated risk model which evaluates patient level characteristics, utilization history, medication orders and lab results up until the day of discharge. Patients with a score of 40 or above are considered highest risk for readmission. Specific patient level drivers will be listed at the bottom of the summary. Admission Information Admission Information ADMIT DATE: 06/25/2018 DISCHARGE DATE: 07/06/2018 MY DOCTORS AND MEDICAL TEAM: [facility] Doctor: Oscar Villanueva Primary Care Provider: Ligia Mcrae DO My Medical Team Members: Treatment Team: Attending Provider: Oscar Villanueva Consulting: Oscar Villanueva Consulting: Gerson Matthews MY COND (more content not included)... Chief Complaint and Reason for Visit Chief Complaint ONC/HEM 1YR LABS PRIOR M48.061 R29.898 Reason for Visit Abnormal coagulation profile Lung mass Lupus anticoagulant positive Lupus anticoagulant positive Chief Complaint M48.061 R29.898 Lumbar pain LEFT/RIGHT HIP PAIN Reason for Visit Back pain Degenerative joint disease (DJD) of hip Spinal stenosis of lumbosacral region Low back pain Chief Complaint M48.061 R29.898 Lumbar pain LEFT/RIGHT HIP PAIN Lumbar Spine Reason for Visit Back pain Degenerative joint disease (DJD) of hip Spinal stenosis of lumbosacral region Low back pain Spinal stenosis of lumbosacral region Chief Complaint RIGHT KNEE PAIN Chief Complaint RIGHT KNEE PAIN COUGH, FEVER Chief Complaint RE-EST (SELF) CAD, ASHD CAD, ASHD Amb Documentation Amb Documentation Amb Documentation Reason for Visit Essential (primary) hypertension H/O coronary artery bypass surgery Hyperlipidemia Chief Complaint Admit Date ONC/HEM September 22, 2024 2:30pm 1YR LABS PRIOR October 05, 2024 2:38p m Reason for Visit Admit Date Abnormal coagulation profile September 22 2:30pm Lung mass September 22, 2024 2:30pm Lupus anticoagulant positive September 22 2:30pm Lupus anticoagulant positive October 05, 2 025 2:38pm Chief Complaint Admit Date ONC/HEM September 22, 2024 2:30pm 1YR LABS PRIOR October 05, 2024 2:38p m SKIN LESION L FOREARM November 23, 2024 3:3 4pm Additional Source Comments (unrecognized sect ion and content) No Status Records FoundNo Status Records FoundNo Status Records FoundNo Status Records Found INFORMATION SOURCE (unrecogn ized section and content) DATE CREATED AUTHOR 08/10/2018 [facility] DATE CREATED AUTHOR AUTHOR'S ORGANIZ ATION 08/10/2018 [facility] DATE CREATED AUTHOR AUTHOR'S ORGANIZ ATION 07/05/2021 [facility] DATE CREATED AUTHOR AUTHOR'S ORGANIZ ATION 01/31/2025 [facility] Goals (unrecognized section and content) Goals may be documented in a n alternate sectionGoals may be documented in an alternate sectionGoals may be documented in an alternate sectionGoals may be documented in an alternate sectionGoals may be documented in an alternate sectionGoals may be documented in an alternate sectionGoals may be documented in an alternate sectionGoals may be documented in an alternate section Care Teams (unrecognized sec tion and content) Team Status: Active Member Role Status Dates Dr. Ligia Mcrae , DO Family Provider Active Dr. Ligia Mcrae , DO Primary Care Provider Active Team Status: Inactive Member Role Status Dates Dr. Ligia Mcrae , DO Primary Care Prov ider, Attending Provider, Referring Provider Active Team Status: Inactive Member Role Status Dates Dr. Ligia Mcrae DO Primary Care Provider, Referrin g Provider Active Dr. Chin Stubbs MD Attending Provider Active Team Status: Active Member Role Status Dates Dr. Ligia Mcrae DO Primary Care Provider Active Dr. Chin Stubbs MD Attending Provider, Referring Provider, Other Provider Active Team Status: Active Member Role Status Dates Dr. Ligia Mcrae DO Primary Care Provider Active Abe Lazo [employer]ENSE ATTORNEY, CRIMINAL DEFENSE ATTORNEY-C Attending Provider Active Team Status: Inactive Member Role Status Dates Dr. Ligia Mcrae DO Primary Care Provider Active Dr. Chin Stubbs MD Attending Provider, Referring Pro vider Active Team Status: Active Member Role Status Dates Dr. Ligia Mcrae DO Primary Care Provider Active Team Status: Active Member Role Status Dates Dr. Ligia Mcrae DO Primary Care Provider Active Start: September 22, 2024 Dr. Ligia Mcrae DO Family Provider Active St art: September 22, 2024 Dr. Ligia Mcrae DO Referring Provider Active Start: September 22, 2024 Dr. Oscar Winkler MD Attending Provider Active S tart: September 22, 2024 Team Status: Inactive Member Role Status Dates Dr. Lgiia Mcrae DO Primary Care Provider Active Start: October 05, 2024 End: October 05, 2024 Dr. Ligia Mcrae DO Referring Provider Active Start: October 05, 2024 End: October 05, 2024 Dr. Oscar Winkler MD Attending Provider Active S tart: October 05, 2024 End: October 05, 2024 Team Status: Active Member Role/Relationship Status Dates Dr. Ligia Mcrae DO Primary Care Provider Active Team Status: Active Member Role/Relationship Status Dates Dr. Ligia Mcrae DO Primary Care Provider Active Start: September 22, 2024 Dr. Ligia Mcrae DO Family Provider Active St art: September 22, 2024 Dr. Ligia Mcrae DO Referring Provider Active Start: September 22, 2024 Dr. Oscar Winkler MD Attending Provider Active S tart: September 22, 2024 Team Status: Inactive Member Role/Relationship Status Dates Dr. Ligia Mcrae DO Primary Care Provider Active Start: October 05, 2024 End: October 05, 2024 Dr. Ligia Mcrae DO Referring Provider Active Start: October 05, 2024 End: October 05, 2024 Dr. Oscar Winkler MD Attending Provider Active S tart: October 05, 2024 End: October 05, 2024 Team Status: Inactive Member Role/Relationship Status Dates Dr. Ligia Mcrae DO Primary Care Provider Active Start: November 23, 2024 End: November 23, 2024 Dr. Ligia Mcrae DO Attending Provider Active Start: November 23, 2024 End: November 23, 2024 Dr. Ligia Mcrae DO Referring Provider Active Start: November 23, 2024 End: November 23, 2024 FOR RECORDS PERTAINING TO PATIENTS WHO ARE OR HAVE BEEN ENROLLED IN A CHEMICAL DEPENDENCY/SUBSTANCEABUSE PROGRAM, SOME INFORMATION MAY BE OMITTED. This clinical summary was aggregated from multiple sources. Caution should be exercised in using it in the provision of clinical care. This summary normalizes information from multiple sources, and as a consequence, information in this document may materially change the coding, format and clinical context of patient data. In addition, data may be omitted in some cases. CLINICAL DECISIONS SHOULD BE BASED ON THE PRIMARY CLINICAL RECORDS. [employer] provides no warranty or guarantee of the accuracy or completeness of information in this document.
== END | disposition home or self-care (01) ==
PROVIDERS: PCP Family Medicine; Referring Provider Family Medicine; Visit Provider Family Medicine
DX: M48.062 Spinal stenosis, lumbar region with neurogenic claudication (principal)
CPT/HCPCS: 72148

== ENCOUNTER 2025-02-24 09:00 | Outpatient (RCR) | payer MEDICARE, SELFPAY ==
--- NOTE | 2025-02-17 12:57 | HP.PTEVAL ---
Patient's Visit Information Visit Information Visit Information: KRYSTIAN CHILD is a 79 year old M referred to Physical Therapy by Dr. Jorge Hyatt MD with a diagnosis of SPINAL STENOSIS LUMBAR REGION WITH NEUROGENIC ,SPONDYLOTHESIS LUMAR. Date of Evaluation: 02/17/25 Physical Therapist: William Hayden, PT, Cert MDT, OCS Visit Plan Frequency: 2x /Week Duration: 4 Weeks Plan: PT INTERVENTIONS DLS ,POSTURAL EX'S ,LE FLEXABILITY , BLE STRENGTHENING ,ACTIVITY MODIFICATION AND MODALITIES Subjective Subjective: This 79 y/o male presents to physical therapy with lumbar radiculopathy. Patient has symptoms for many years,progressively worse with past several months . Patient major problem with weakness in legs. C/o paresthesia in feet .Seen DR MRI showed severe process . Patient recommended PT ,but needs PT prior surgery. Patient tried pain management epidural injections did not help. Pain located LS -glutes and weakness in thighs. Aggravating walking,standing . Alleviating factors rest. Coughing/sneezing +. Bowel/bladder-. Patient sleeping good. Patient is active. Patient has no trauma. Patient prior PT. Patient conditions affects QOL and function.Patient goals surgery. SOCIAL: VOCATION: RETIRED Pain Bilateral Back: Pain Intensity (Out of 10): 5 Pain Intensity Range: 8 and 10 Objective Objective: POSTURE: mild forward posture NEURO: c/o paresthesia in feet ,reflexes L3-4,L4-5,L5-S1 2/3 PALAPTION: unremarkable FLEXABILITY: min tight SYMMTRIES: Align MMT: quads/hams ,hip flexion 4/5 ,ankle 4/5 LUMBAR ROM: flexion min loss ,extension mod loss ,side glides mod loss Special Tests L/S Slump test left side: Negative L/S Slump test right side: Negative L/S Left Straight Leg Raise: Negative L/S Right Straight Leg Raise: Negative Balance/Special Test Scores Oswestry Low Back Score: 18 Goals Goal 1:: Patient to be I with HEP for back Goal Time Frame: 4-6 Weeks Goal 2:: Patient demonstrate 50% improvement with less symptoms with walking/standing Goal Time Frame: 4-6 Weeks Goal 3:: Patient to improve lumbar ROM for function of recovery for ADL's and housework tasks Goal Time Frame: 4-6 Weeks Goal 4:: Patient to improve back oswestry score by 5 points to improve QOL and function Goal Time Frame: 4-6 Weeks Rehabilitation Potential Physical Therapy Diagnosis: This patient has severe stenosis with affecting leg symptoms with walking and standing along with weakness in legs thus benefit from skilled PT to address these impairments Rehabilitation Potential: Good Anticipated Interventions Patient/Client Instruction: Educate patient on: Condition and Plan of Care For the Purpose of:: To decrease pain, To increase ROM, To improve muscle performance and motor function, To improve ability to perform ADL's, To increase tolerance to activity/condition/position, To improve ability of physical actions for home/community/work/leisure, To improve health of tissue, To decrease soft tissue restriction, To increase flexibility/ROM and To improve tolerance to ADL's Therapeutic Exercise to Include: Strength training, Postural training, Flexibilty training and Dynamic Lumbar Stabilization Comment: BLE For the Purpose of:: To decrease pain, To increase ROM, To improve muscle performance and motor function, To improve ability to perform ADL's, To increase tolerance to activity/condition/position, To improve ability of physical actions for home/community/work/leisure, To improve health of tissue, To decrease soft tissue restriction, To increase flexibility/ROM, To reduce risk of recurrence and To improve tolerance to ADL's TENS: Yes IF ES: Yes Cryotherapy (ice pack, ice massage): Yes Thermo therapy (hot pack): Yes Ultrasound (thermal/non thermal): Yes For the Purpose of:: To decrease pain, To decrease swelling/inflammation, To improve nutrient delivery to tissue, To increase oxygenation perfusion, To improve health of tissue and To decrease soft tissue restriction Text: Thank you for the opportunity to evaluate your patient. For Medicare and Medicare HMO plans, please review the plan of care and approve it. It will need to be FAXED BACK to us at [phone] for Medicare purposes. For Medicare only, by signing this I certify the plan of care. Please let me know if there are questions or concerns regarding this plan of care. Physician Signature: Date:
--- NOTE | 2025-02-24 09:33 | HP.PTDCSUM ---
Discharge Summary D/C summary: It has been my pleasure to treat KRYSTIAN CHILD referred by Dr. Jorge Hyatt MD, with the diagnosis of SPINAL STENOSIS LUMBAR REGION WITH NEUROGENIC ,SPONDYLOTHESIS LUMAR for a total of 2 visit(s). Discharge Date: 02/24/25 Please see the following information for a summary of their discharge status. Subjective Subjective: Planning for surgery Date is unknown Wants to stop PT Pain Bilateral Back: Pain Intensity (Out of 10): 7 Objective Objective/Function: Did well with ex's appropriate fatigue , Discussed with patient ,that he want to do ex' at home and is planning for surgery Goals Goal 1:: Patient to be I with HEP for back Goal Progress: Progressing Goal 2:: Patient demonstrate 50% improvement with less symptoms with walking/standing Goal Progress: Not Progressing Goal 3:: Patient to improve lumbar ROM for function of recovery for ADL's and housework tasks Goal Progress: Not Progressing Goal 4:: Patient to improve back oswestry score by 5 points to improve QOL and function Goal Progress: Not Progressing Plan Plan: D/C SCHEDULING FOR BACK SURGERY D/C Information Discharge Comments: SURGERY BACK d/c sentence: If there are questions or concerns regarding this patient's physical therapy, please feel free to call me at [phone]. Thank you for the referral of this patient. Sincerely, William Hayden, PT, Cert MDT, OCS Balance/Gait/Functional tests Balance/Special Test Scores Oswestry Low Back Score: 18
== END 2025-02-24 19:00 | disposition home or self-care (01) ==
LOC: PT 09:00
PROVIDERS: PCP Family Medicine; Referring Provider Orthopaedic Surgery Orthopaedic Surgery of the Spine; Visit Provider Orthopaedic Surgery Orthopaedic Surgery of the Spine
DX: M48.062 Spinal stenosis, lumbar region with neurogenic claudication (principal); M43.16 Spondylolisthesis, lumbar region; M41.86 Other forms of scoliosis, lumbar region
CPT/HCPCS: 97110; 97162

== ENCOUNTER → 2025-03-24 | Outpatient (CLI) | payer MEDICARE, SELFPAY ==
[2025-03-24 11:16] LABS: AST(SGOT) 27 U/L (<=37); Alanine Aminotransfer ALT/SGPT 26 U/L (<=46); Albumin, Serum 4.0 g/dL (3.4-4.8); Alkaline Phosphatase 49 U/L (40-129); Bilirubin, Direct 0.15 mg/dL (0.00-0.30); Cholesterol 258 mg/dL (<=200); Globulin 3.1 g/dL (2.2-4.2); Low Density Lipoprotein Calc. 179 mg/dL; Triglycerides 222 mg/dL; Very Low Density Lipoprotein 44 mg/dL (5-40); cholesterol:hdl ratio screen 7.05
== END | disposition home or self-care (01) ==
LOC: LAB 09:19
PROVIDERS: PCP Family Medicine; Referring Provider Student in an Organized Health Care Education/Training Program; Visit Provider Student in an Organized Health Care Education/Training Program
DX: E78.5 Hyperlipidemia, unspecified (principal)
CPT/HCPCS: 36415; 80061; 80076

== ENCOUNTER → 2025-04-03 | Outpatient (CLI) | payer MEDICARE, SELFPAY ==
--- OUTSIDE RECORDS SUMMARY | 2025-04-03 07:16 | XMS RPT_ITS | CCD ---
Author Organization [facility] Care Team Providers Care Keno Writer Name Role Phone BRAEDEN AUGUST Admitting Unavailable EVELYNE, CHIN S Referring Unavailable LAHORRAOSCAR Attending Unavailable TESS, GERSON F Consulting Unavailable ORLANDO JACOBS (RESPIRATORY SUPERVISOR) Attending Unavailable LIGIA MCRAE Referring Unavailable ORLANDO JACOBS (RESPIRATORY SUPERVISOR) Attending Unavailable LIGIA MCRAE Referring Unavailable OFUNGWBRAEDEN Sweeney Admitting Unavailable EVELYNE, CHIN S Referring Unavailable IMCA Primary Care Unavailable OSCAR VILLANUEVA Consulting Unavailable OSCAR VILLANUEVA Attending Unavailable ISABELL, RAJI Consulting Unavailab le TESS GERSON F Consulting Unavailable ORLANDO JACOBS Attending Unavailable IMCA Referring Unavailable IMCA Primary Care Unavailable ORLANDO JACOBS Attending Unavailable IMCA Referring Unavailable IMCA Primary Care Unavailable Dr. Ligia Mcrae Primary Care Provider [phone] Dr. Ligia Mcrae Referring Provider [phone] Dr. Oscar Winkler Attending Provider [phone] Dr. Ligia Mcrae Primary Care Provider [phone] Dr. Ligia Mcrae Referring Provider [phone] Dr. Jarad Krishnan Attending Provider [phone] Ligia Mcrae Primary Care Provider [phone] Dr. Ligia Mcrae Referring Provider [phone] Dr. Chin Stubbs Attending Provider [phone] Dr. Chin Stubbs Referring Provider [phone] Dr. Chin Stubbs Other Provider [facility] PATROL OFFICER, PATROL OFFICERAdán Brunner Attending Provider [phone] Jamila ROD Dr. Ligia Primary Care Provider Jamila ROD, Dr. Lerma Referring Provider [phone] Peterson NAVARRETE, Dr. Moore Attending Provider Jamila ROD, Dr. Lerma Attending Provider [phone] Jorge Hyatt MD Unavailable NONE, NONE Unavailable Unavailable Jamila ROD, Ligia A Unavailable Jamila ROD, Dr. Lerma Primary Care Physician [phone] Jamila ROD, Dr. Lerma Attending Physician Jamila ROD, Dr. Lerma Referring Provider [phone] Olena NAVARRETE, Dr. Jorge Addison Attending Physician Olena NAVARRETE, Dr. Jorge Addison Referring Provider Olena NAVARRETE, Dr. Jorge Addison Attending Physician Olena NAVARRETE, Dr. Jorge Addison Referring Provider Jamila, Ligia Primary Care Unavailable Jamila, Ligia Attending Unavailable Jamila, Ligia Referring Unavailable Jamila, Ligia Primary Care Unavailable Demiter, Carlos Attending Unavailable Jamila, Ligia Referring Unavailable Jamila, Ligia Referring Unavailable PrahOscar Attending Unavailable Jamila, Ligia Primary Care Unavailable Jamila, Ligia Referring Unavailable Amnah, Oscar Attending Unavailable Jamila, Ligia Primary Care Unavailable Jorge Hyatt Attending Unavailable Jorge Hyatt Referring Unavailable Jamlia, Ligia Primary Care Unavailable Jamila, Ligia Primary Care Unavailable Demiter, Carlos Attending Unavailable Demiter, Carlos Referring Unavailable Jamila, Ligia Primary Care Unavailable Jamila, Ligia Attending Unavailable Demiter, Carlos Referring Unavailable Jamila, Ligia Primary Care Unavailable Demiter, Carlos Attending Unavailable Jamila, Ligia Primary Care Unavailable Jamila, Ligia Attending Unavailable Jamila, Ligia Referring Unavailable Allergies Allergy Classification Reported Allergen(s) Allergy Type Date of Onset Reaction(s) Facility (1 source) atorvastatin Drug Allergy 03-30-2025 [facility] Repository (1 source) Pravastatin Drug Allergy 03-30-2025 [facility] Repository (1 source) rosuvastatin Drug Allergy 03-30-2025 [facility] Repository Medications Current Medications Medication Drug Class(es) Dates Sig (Normalized) Sig (Original) aspirin 81 mg delayed release oral tablet (20 sources) Platelet Aggregation Inhibitor, Nonsteroidal Anti-inflammatory Drug Start: 03-16-2023 take 1 tablet by mouth once daily Start: 02-26-2023 End: 03-16-2023 Aspirin (Adult Aspirin [...] 1:00am February 26, 2023 2:29pm blood thinner take 1 tablet by bobo th once daily aspirin 81 mg capsule 1 tablet by mouth once daily active Judit Odom AUTOMATIC EQUIPMENT TECHNICIAN [facility] methylPREDNISolone 4 mg oral tablet (7 sources) Corticosteroid Start: 03-16-2023 traMADol hydrochloride 50 mg oral tablet (12 sources) Opioid Agonist Start: 02-26-2023 take 1 tablet by mouth twice daily as needed Start: 10-07-2022 End: 02-26-2023 take 1 tablet by mouth once daily Tramadol 50 mg tablet Discontinued 50 mg PO DAILY October 07, 2022 12:00am February 26, 2023 2:29pm Completed/Discontinued Medications Medication Drug Class(es) Dates Sig (Normalized) Sig (Original) acetaminophen 500 mg oral tablet (10 sources) Start: 02-17-2019 End: 02-26-2023 take 1 [...] 2018 1:27pm cholecalciferol 0.025 mg oral capsule (10 sources) Vitamin D Start: 12-01-2017 End: 08-05-2018 take 1 capsule by mouth once daily Cholecalciferol (Vitamin D3) 1,000 unit capsule Discontinued 1000 U PO DAILY December 01, 2017 12:00am August 05, 2018 1:36pm clopidogrel 75 mg oral tablet (10 sources) P2Y12 Platelet Inhibitor Start: 06-23-2018 End: 08-05-2018 take 1 tablet by mouth once daily Clopidogrel (Plavix) 75 mg tablet Discontinued 75 mg PO DAILY 30 June 23, 2018 1:00am August 05, 2018 1:28pm magnesium oxide 400 mg oral capsule (10 sources) Start: 12-01-2017 End: 08-05-2018 take 1 [...] 2:01pm March 16, 2023 10:51am blood pressure take 1 tablet by mouth once juarez y metoprolol tartrate 50 mg tablet 1 tablet by mouth once daily active Judit Odom LPN [facility] Problems Active Problems Problem Classification Problem Date Documented Date Episodic/Chronic Acute and unspecified renal failure (10 sources) Injury of kidney; Translations: [Acute kidney failure, unspecified] 03-30-2019 Episodic Coagulation and hemorrhagic disorders (10 sources) Platelet count below reference range; Translations: [Thrombocytopenia, unspecified] 03-30-2019 Chronic Conditions associated with dizziness or vertigo (10 sources) Lightheadedness; Translations: [Dizziness and giddiness] 02-17-2019 Episodic Coronary atherosclerosis and other heart disease (13 sources) Atherosclerotic heart disease of quechan coronary artery with other forms of angina pectoris; Translations: [Coronary atherosclerosis] Onset: 06-25-2018 02-17-2019 Chronic Comment on above: CABG x 4 TYLER-LAD, S VG-D1, SVG-OM1 and SVG-RCA 07/01/18 Coronary atherosclerosis and other heart disease (5 sources) Presence of aortocoronary bypass graft; Translations: [Aortocoronary bypass status] Onset: 07-01-2018 03-16-2023 Episodic Deficiency and other anemia (10 sources) Macrocytic anemia; Translations: [Nutritional anemia, unspecified] 03-30-2019 Episodic Comment on above: etiology unclear Disorders of lipid metabolism (13 sources) Hyperlipidemia; Translations: [Hyperlipidemia, unspecified] Onset: 03-30-2025 02-17-2019 Chronic Essential hypertension (12 sources) Essential hypertension; Translations: [Essential (primary) hypertension] Onset: 03-30-2025 02-17-2019 Chronic Comment on above: She denies this. He was on no medications prior to CABG in June 2018 Fluid and electrolyte disorders (20 sources) Hyponatremia; Translations: [Hypo-osmolality and hyponatremia] 03-30-2019 Episodic Nonspecific chest pain (20 sources) Right sided chest pain; Translations: [Chest pain, unspecified] 11-16-2018 Episodic Osteoarthritis (11 sources) Osteoarthritis of hip; Translations: [Osteoarthritis of hip, unspecified] Chronic Other acquired deformities (3 sources) Scoliosis of lumbar spine; Translations: [Other forms of scoliosis, lumbar region] Onset: 02-16-2025 02-17-2025 Chronic Other acquired deformities (1 source) Other forms of scoliosis, lumbar region; Translations: [Other forms of scoliosis, lumbar region] Onset: 02-28-2025 Chronic Other acquired deformities (3 sources) Isthmic spondylolisthesis; Translations: [Spondylolisthesis, lumbar region] Onset: 02-16-2025 02-17-2025 Episodic Other acquired deformities (1 source) Spondylolisthesis, lumbar region; Translations: [Spondylolisthesis, lumbar region] Onset: 02-28-2025 Episodic Other and unspecified benign neoplasm (10 sources) History of polyp of colon; Translations: [Personal history of colonic polyps] 02-17-2019 Episodic Other and unspecified benign neoplasm (10 sources) Polyp of colon; Translations: [Polyp of colon] 11-01-2020 Episodic Other lower respiratory disease (12 sources) Lung mass; Translations: [Other nonspecific abnormal finding of lung field] 04-12-2019 Episodic Other lower respiratory disease (1 source) Other nonspecific abnormal finding of lung field; Translations: [Swelling, mass, or lump in chest] Episodic Other screening for suspected conditions (not mental disorders or infectious disease) (20 sources) Thallium stress test abnormal; Translations: [Abnormal result of other cardiovascular function study] Episodic Pneumonia (except that caused by tuberculosis or sexually transmitted disease) (10 sources) Community acquired pneumonia; Translations: [Pneumonia, unspecified organism] 03-30-2019 Episodic Residual codes; unclassified (10 sources) Family history of cancer of colon; Translations: [Family history of malignant neoplasm of digestive organs] 02-17-2019 Episodic Spondylosis; intervertebral disc disorders; other back problems (20 sources) Lumbosacral stenosis; Translations: [Spinal stenosis, lumbosacral region] Onset: 02-16-2025 Episodic Comment on above: DDD Unclassified (1 source) Infection following a procedure, other surgical site, initial encounter; Translations: [Infection following a procedure, other surgical site, initial encounter] Onset: 07-13-2018 Past or Other Problems Problem Classification Problem Date Documented Date Episodic/Chronic Immunizations and screening for infectious disease (18 sources) Lupus anticoagulant disorder; Translations: [Raised antibody titer] Onset: 10-05-2024 Episodic Comment on above: Clinically stable, n o clotting episodes.CBC and chemistry reviewed, within normal limits, still has Lupus anticoagulant positivity. Other skin disorders (1 source) Disorder of the skin and subcutaneous tissue, unspecified; Translations: [Disorder of the skin and subcutaneous tissue, unspecified] Onset: 12-18-2024 Episodic Results Test Name Value Interpretation Reference Range Facility Cardiology Visit Reporton Cardiology Visit Report [facility] [place] [address] OFFICE VISIT Date of Service: 03/24/25 MR#: [id number] Acct: [id number] Name: KRYSTIAN CHILD Rep #: [id number] : 1945 Provider: ALEXA Breen Age/Sex: 79/M Location: [facility] [place] Status: Signed HPI HPI History of Present Illness Details: Krystian Child is a 89-year-old male who presents to office today for cardiac clearance. He is scheduled to undergo back surgery on L3-L5. He has a history of coronary artery disease status post CABG in 2019 receiving TYLER to the LAD, SVG to the first diagonal, SVG to the first obtuse marginal, and SVG to the RCA. He has a history of hypertension and former tobacco use. Upon presentation today, patient reports doing well. He reports back pain and lower extremity weakness related to his back pain/nerve involvement. He exercises nightly including sit ups, pull- ups, weight lifting for about 15 minutes. He denies any anginal or anginal equivalent symptoms with these workouts. He reports he was asymptomatic with his blockage in the past. He reports occasional left lower extremity edema that he has noticed since his CABG. Further ROS below. Intake Vital Signs 10/05/24 14:43 03/24/25 07:53 03/24/25 08:14 Height 5 ft 10 in 5 ft 10 in Weight: 209 lb BMI 29.9 BP 169/82 H 186/96 H Blood Pressure Location Lt brachial Rt brachial Position Sitting Sitting Respiration 18 Pulse 56 L Pulse Source Monitor Pulse Oximetry (%) 92 Oxygen Delivery Method room air Intake Visit Reasons: SURGICAL CLEARANCE Basic Acoustic Analyst Required: No Accompanied by: Is patient in pain?: No Allergies No Known Allergies Allergy (Verified 03/24/25 07:59) Medications ???Medication ???Instructions ???Recorded ???Confirmed ???Type tramadol 50 mg tablet 50 mg PO BID PRN 02/26/23 03/24/25 History aspirin 81 mg tablet,delayed 81 mg PO DAILY blood thinner 03/1603/24/25 History release (Adult Aspirin Regimen) methylprednisolone 4 mg tablet 4 mg PO PRN 03/16/23 03/24/25 Hist ory metoprolol tartrate 50 mg tablet 50 mg PO BID blood pressure #180 1 03/24/25 Rx tabs amlodipine 5 mg tablet 5 mg PO QDAY #30 tabs 03/24/25 Rx Ejection fraction %: 60 Have you fallen in the past year?: No Nurse's Note: Dr. Jorge Hopson is going to be doing back surgery on 05/12/25. [facility] Medical History Back pain Wears glasses Arthritis Former smoker Leg cramps History of stress test ( 06/16/18) Hx of echocardiogram ( 06/26/18) Hx of lupus anticoagulant disorder TIA (transient ischemic attack) (07/2005) Wound cellulitis after surgery Essential (primary) hypertension Atherosclerosis of coronary artery of quechan heart without angina pectoris Scoliosis Osteoarthritis DDD [...] Smoking Status: Former smoker alcohol intake: never ROS Const Const: Negative for fatigue, weakness or headache(s) Eyes Eyes: Negative for change in vision ENT ENT: Negative for headache(s), dizziness, Nosebleed/epistaxis or balance problems Cardio Chest Pain: No Palpitations: No Edema: None Muscle aches with walking: Bilateral Resp Respiratory: Negative for SOB with activity GI GI: Negative nausea, vomiting, heartburn or bright, red blood in stools : Negative for hematuria Musc Musc: Negative for balance problems Neuro Neuro: Negative for dizziness, lightheadedness, syncope, headache(s) or weakness Endo Endo: Negative for fatigue Cardiology Exam Const Appearance: cooperative, comfortable, no acute distress and well developed; Negative diaphoretic or ill appearing Nutritional Appearance: average body habitus Orientation: alert and oriented x3 Ambulating without assistive device Head Head: normal to inspection, normocephalic and atraumatic Ears: hearing grossly normal bilaterally Nose: external (more content not included)... Normal [facility] Lipid Profileon 03-24-2025 CHOL:HDL 7.05 Normal [facility] Comment on above: Performed By: #### L 500.4100, L500.3400 #### [facility] [address] [place], [address] Cholesterol [Mass/Vol] 258 mg/dL High <=200 [facility] Comment on above: Result Comment: Chol esterol level, Desirable <200 mg/dL Borderline high cholesterol 200-239 mg/dL High cholesterol >=240 mg/dL Recommendations of the NCEP Adult Treatment Panel for the following risk-cutoff thresholds for the [place] Citizen [place] population. Performed By: #### L 500.4100, L500.3400 #### [facility] [address] [place], [address] Cholesterol in HDL [Mass/Vol] 37 mg/dL Low [facility] Comment on above: Result Comment: [place] onal Cholesterol Education Program (NCEP) guidelines: <40 mg/dL: Low HDL-cholesterol (major risk factor for CHD) >= 60 mg/dL: High HDL-cholesterol (negative risk factor for CHD) HDL-cholesterol is affected by a number of factors, e.g. smoking, exercise, hormones, sex and age. Performed By: #### L 500.4100, L500.3400 #### [facility] [address] [place], [address] Cholesterol in LDL [Mass/Vol] 179 mg/dL Normal [facility] Comment on above: Result Comment: Bord crxrpp=142-767 mg/dL Higher Yyww=422 mg/dL or greater Schmitt Equation 2020 for LDL-C Performed By: #### L 500.4100, L500.3400 #### [facility] [address] [place], [address] Cholesterol in VLDL [Mass/Vol] 44 mg/dL High 5-40 [facility] Comment on above: Performed By: #### L 500.4100, L500.3400 #### [facility] [address] [place], [address] Triglyceride [Mass/Vol] 222 mg/dL High [facility] Comment on above: Result Comment: The drugs N-Acetylcysteine and Metamizole may falsely depress this assay. Normal range: <150 mg/dL Borderline High: 150-199 mg/dL High: 200-499 mg/dL Very High: >500 mg/dL Performed By: #### L 500.4100, L500.3400 #### [facility] [address] [place], [address] Liver Profileon 03-24-2025 Albumin [Mass/Vol] 4.0 g/dL Normal 3.4-4.8 [facility] Comment on above: Performed By: #### L 500.4100, L500.3400 #### [facility] [address] [place], [address] ALK PHOS 49 U/L Normal 40-129 [facility] Comment on above: Performed By: #### L 500.4100, L500.3400 #### [facility] [address] [place], [address] ALT [Catalytic activity/Vol] 26 U/L Normal <=46 [facility] Comment on above: Performed By: #### L 500.4100, L500.3400 #### [facility] [address] [place], [address] AST [Catalytic activity/Vol] 27 U/L Normal <=37 [facility] Comment on above: Performed By: #### L 500.4100, L500.3400 #### [facility] [address] [place], [address] Bilirubin [Mass/Vol] 0.54 mg/dL Normal 0.00-1.30 [facility] Comment on above: Performed By: #### L 500.4100, L500.3400 #### [facility] [address] [place], [address] Bilirubin.direct [Mass/Vol] 0.15 mg/dL Normal 0.00-0.30 [facility] Comment on above: Performed By: #### L 500.4100, L500.3400 #### [facility] [address] [place], [place], [id number] Globulin (S) [Mass/Vol] 3.1 g/dL Normal 2.2-4.2 [facility] Comment on above: Performed By: #### L 500.4100, L500.3400 #### [facility] [address] [place], [place], [id number] T PROT 7.1 g/dL Normal 5.9-8.4 [facility] Comment on above: Performed By: #### L 500.4100, L500.3400 #### [facility] [address] [place], [place], [id number] Relevant diagnostic tests/la boratory data Narrativeon 03-16-2025 Fall risk assessment no [employer] Work Phone: MEDS REVIEW Done [employer] Work Phone: MEDS REVIEWD Medications reviewed without changes [employer] Work Phone: PT D/C Summary (1)on 025 PT D/C Summary (1) [facility] Physical Therapy [address] [place] [address] / REHABILITATION SERVICES DISCHARGE SUMMARY MR#: [id number] Acct: [id number] Name: KRYSTIAN CHILD Rep #: [id number] : 1945 79 From: William Hayden PT, Cert. T, OCS Referring Dr.: Dr. Jorge Hyatt MD Status: R EG RCR Insurance: [facility] 03/25/18 SELF PAY INSURANCE Discharge Summary D/C summary: It has been my pleasure to treat KRYSTIAN CHILD referred by Dr. Jorge Hyatt MD, with the diagnosis of SPINAL STENOSIS LUMBAR REGION WITH NEUROGENIC ,SPONDYLOTHESIS LUMAR for a total of 2 visit(s). Discharge Date: 02/24/25 Please see the following information for a summary of their discharge status. Subjective Subjective: Planning for surgery Date is unknown Wants to stop PT Pain Bilateral Back: Pain Intensity (Out of 10): 7 Objective Objective/Function: Did well with ex's appropriate fatigue , Discussed with patient ,that he want to do ex' at home and is planning for surgery Goals Goal 1:: Patient to be I with HEP for back Goal Progress: Progressing Goal 2:: Patient demonstrate 50% improvement with less symptoms with walking/standing Goal Progress: Not Progressing Goal 3:: Patient to improve lumbar ROM for function of recovery for ADL's and housework tasks Goal Progress: Not Progressing Goal 4:: Patient to improve back oswestry score by 5 points to improve QOL and function Goal Progress: Not Progressing Plan Plan: D/C SCHEDULING FOR BACK SURGERY D/C Information Discharge Comments: SURGERY BACK d/c sentence: If there are questions or concerns regarding this patient's physical therapy, please feel free to call me at [phone]. Thank you for the referral of this patient. Sincerely, William Hayden PT, Cert T, OCS Balance/Gait/Functional tests Balance/Special Test Scores Oswestry Low Back Score: 18 02/27/25 1137 CC: Dr. Jorge Hyatt MD; Dr. Ligia Mcrae DO JLA Signed Normal [facility] Inital Evaluation (1) - PTon 02-17-2025 Inital Evaluation (1) - PT [facility] Physical Therapy [facility] [address] [place] [address] [address] [place] [address] / REHABILITATION SERVICES INITIAL EVALUATION MR#: [id number] Acct: [id number] Name: KRYSTIAN CHILD Rep #: [id number] : 1945 79 From: Jl Bedoya PT. T, OCS Referring Dr.: Dr. Jorge Hyatt MD Status: R EG RCR Insurance[facility] 03/25/18 SELF PAY INSURANCE Patient's Visit Information Visit Information Visit Information: KRYSTIAN CHILD is a 79 year old M referred to Physical Therapy by Dr. Jorge Hyatt MD with a diagnosis of SPINAL STENOSIS LUMBAR REGION WITH NEUROGENIC ,SPONDYLOTHESIS LUMAR. Date of Evaluation: 02/17/25 Physical Therapist: William Hayden, PT, Cert MDT, OCS Visit Plan Frequency: 2x /Week Duration: 4 Weeks Plan: PT INTERVENTIONS DLS ,POSTURAL EX'S ,LE FLEXABILITY , BLE STRENGTHENING ,ACTIVITY MODIFICATION AND MODALITIES Subjective Subjective: This 79 y/o male presents to physical therapy with lumbar radiculopathy. Patient has symptoms for many years,progressively worse with past several months . Patient major problem with weakness in legs. C/o paresthesia in feet .Seen DR MRI showed severe process . Patient recommended PT ,but needs PT prior surgery. Patient tried pain management epidural injections did not help. Pain located LS -glutes and weakness in thighs. Aggravating walking,standing . Alleviating factors rest. Coughing/sneezing +. Bowel/bladder-. Patient sleeping good. Patient is active. Patient has no trauma. Patient prior PT. Patient conditions affects QOL and function.Patient goals surgery. SOCIAL: VOCATION: RETIRED Pain Bilateral Back: Pain Intensity (Out of 10): 5 Pain Intensity Range: 8 and 10 Objective Objective: POSTURE: mild forward posture NEURO: c/o paresthesia in feet ,reflexes L3-4,L4-5,L5-S1 2/3 PALAPTION: unremarkable FLEXABILITY: min tight SYMMTRIES: Align MMT: quads/hams ,hip flexion 4/5 ,ankle 4/5 LUMBAR ROM: flexion min loss ,extension mod loss ,side glides mod loss Special Tests L/S Slump test left side: Negative L/S Slump test right side: Negative L/S Left Straight Leg Raise: Negative L/S Right Straight Leg Raise: Negative Balance/Special Test Scores Oswestry Low Back Score: 18 Goals Goal 1:: Patient to be I with HEP for back Goal Time Frame: 4-6 Weeks Goal 2:: Patient demonstrate 50% improvement with less symptoms with walking/standing Goal Time Frame: 4-6 Weeks Goal 3:: Patient to improve lumbar ROM for function of recovery for ADL's and housework tasks Goal Time Frame: 4-6 Weeks Goal 4:: Patient to improve back oswestry score by 5 points to improve QOL and function Goal Time Frame: 4-6 Weeks Rehabilitation Potential Physical Therapy Diagnosis: This patient has severe stenosis with affecting leg symptoms with walking and standing along with weakness in legs thus benefit from skilled PT to address these impairments Rehabilitation Potential: Good Anticipated Interventions Patient/Client Instruction: Educate patient on: Condition and Plan of Care For the Purpose of:: To decrease pain, To increase ROM, To improve muscle performance and motor function, To improve ability to perform ADL's, To increase tolerance to activity/condition/positio n, To improve ability of physical actions for home/community/work/leisur e, To improve health of tissue, To decrease soft tissue restriction, To increase flexibility/ROM and To improve tolerance to ADL's Therapeutic Exercise to Include: Strength training, Postural training, Flexibilty training and Dynamic Lumbar Stabilization Comment: BLE For the Purpose of:: To decrease pain, To increase ROM, To improve muscle performance and motor function, To improve ability to perform ADL's, To increase tolerance to activity/condition/positio n, To improve ability of physical actions for home/community/work/leisur e, To improve health of tissue, To decrease soft tissue restriction, To increase flexibility/ROM, To reduce risk of recurrence and To improve tolerance to ADL's TENS: Yes IF ES: Yes Cryotherapy (ice pack, ice massage): Yes Thermo therapy (hot pack): Yes Ultrasound (thermal/non thermal): Yes For the Purpose of:: To decrease pain, To decrease swelling/inflammation, To improve nutrient delivery to tissue, To increase oxygenation perfusion, To improve health of tissue and To decrease soft tissue restriction Text: Thank you for the opportunity to evaluate your patient. For Medicare and Medicare HMO plans, please review the plan of care and approve it. It will need to be FAXED BACK to us at [phone] for Medicare purposes. For Medicare only, by signing this I certify the plan of care. Please let me know if there are questions or concerns regarding this plan of care. Physician Signature: Da (more content not included)... Normal [facility] Relevant diagnostic tests/la boratory data Narrativeon 02-16-2025 Fall risk assessment no [employer]. Work Phone: MEDS REVIEW Done [employer] Work Phone: MEDS REVIEWD Medications reviewed with changes [employer] Work Phone: MRI HX of the lumbar spine on 02/02/2025 at [facility], [place], [place] [employer]. Work Phone: Magnetic resonance imaging r eportOrdered By: Mike Andujar on 02-05-2025 Study report [facility] Imaging Services [address] [place] [address] Spine Lumbar (Routine) MR#: [id number] Acct: [id number] Name: KRYSTIAN CHILD Rep #: [id number] : 1945 M 79 From: Lion Andujar MD PCP: Dr. Ligia Mcrae DO Status: REG CLI Study:Spine Lumbar (Routine) Date of Exam: 02/02/25 Exam# [id number] Ordering Dr: Ligia Mcrae DO PROCEDURE: SPINE LUMBAR (ROUTINE) 02/02/2025 REASON FOR EXAM: WORSENING LUMBAR STENOSIS AN LOWER LEG SYMPTOMS TECHNIQUE: Procedure Code: MRISPL Modality: MR Procedure: SPINE LUMBAR (ROUTINE) COMPARISON: None. FINDINGS: T11-L1: Vertebral bodies: Negative. Disk Space: Moderate degenerative disc disease mid and lower lumbar spine. Negative for Modic changes. Facet Joints: Negative for bilateral facet joint hypertrophy. Neural foramina: Negative for neural foraminal narrowing Spinal Canal: Negative for central spinal narrowing. L1-2: Vertebral bodies: Negative. Disk Space: Disc desiccation. Moderate loss of disc height. Negative for Modicchanges. Facet Joints: Moderate bilateral facet joint hypertrophy. Neural foramina: Mild bilateral neural foraminal narrowing Spinal Canal: Negative for subarticular zone narrowing. Negative for central spinal narrowing. L2-3: Vertebral bodies: Anterior osteophyte formation. Disk Space: Negative. Negative for Modic changes. Facet Joints: Xwzf-ur-rkkladaw bilateral facet joint hypertrophy. Neural foramina: Mild bilateral neural foraminal narrowing Spinal Canal: Mild left subarticular zone narrowing. Negative for central spinalnarrowing. L3-4: Vertebral bodies: Anterior osteophyte formation. Disk Space: Disc desiccation. Moderate loss of disc height. Schmorl's node superior endplate of L4 with mild edematous changes. Hemangioma of L4. Facet Joints: Iivarweu-qk-rpjskx bilateral facet joint hypertrophy. Neural foramina: Severe bilateral neural foraminal narrowing Spinal Canal: Severe bilateral subarticular zone narrowing. Severe central spinal narrowing. L4-5: Vertebral bodies: Mild anterior osteophyte formation. Disk Space: Disc desiccation moderate loss of disc height. Negative for Modic changes. Facet Joints: Severe bilateral bilateral facet joint hypertrophy. Neural foramina: Moderate to severe right and moderate left neural foraminal narrowing Spinal Canal: Severe right subarticular zone narrowing. Moderate right central spinal narrowing. L5-S1: Vertebral bodies: Negative. Disk Space: Negative. Negative for Modic changes. Facet Joints: Mild bilateral bilateral facet joint hypertrophy. Neural foramina: Negative for neural foraminal narrowing Spinal Canal: Negative for subarticular zone narrowing. Negative for central spinal narrowing. Vertebrae: Moderate scoliosis convex right in the mid lumbar spine. Otherwise normal bone marrow signal. Conus Medullaris: Spinal cord is normal and ends at L1. Imaged kidneys aorta otherwise negative. The remainder of the exam negative. MRI/Spine Lumbar (Routine) IMPRESSION: Multilevel multifactorial degenerative changes lumbar spine overall most prominent L3-L4 and L4-5 as above. Reading Location: [id number] CC: Dr. Ligia Mcrae DO ~ Edge Banding Machine Offbearer: Signed [facility] Spine Lumbar (Routine)on Spine Lumbar (Routine) [facility] Imaging Services [address] [place] [address] Spine Lumbar (Routine) MR#: [id number] Acct: [id number] Name: KRYSTIAN CHILD Rep #: [id number] : 1945 M 79 From: Mike Andujar MD PCP: Dr. Ligia Mcrae DO Status: REG CLI Study: Spine Lumbar (Routine) Date of Exam: 02/02/25 Exam# [id number] Ordering Dr: Ligia Mcrae DO PROCEDURE: SPINE LUMBAR (ROUTINE) 02/02/2025 REASON FOR EXAM: WORSENING LUMBAR STENOSIS AN LOWER LEG SYMPTOMS TECHNIQUE: Procedure Code: MRISPL Modality: MR Procedure: SPINE LUMBAR (ROUTINE) COMPARISON: None. FINDINGS: T11-L1: Vertebral bodies: Negative. Disk Space: Moderate degenerative disc disease mid and lower lumbar spine. Negative for Modic changes. Facet Joints: Negative for bilateral facet joint hypertrophy. Neural foramina: Negative for neural foraminal narrowing Spinal Canal: Negative for central spinal narrowing. L1-2: Vertebral bodies: Negative. Disk Space: Disc desiccation. Moderate loss of disc height. Negative for Modic changes. Facet Joints: Moderate bilateral facet joint hypertrophy. Neural foramina: Mild bilateral neural foraminal narrowing Spinal Canal: Negative for subarticular zone narrowing. Negative for central spinal narrowing. L2-3: Vertebral bodies: Anterior osteophyte formation. Disk Space: Negative. Negative for Modic changes. Facet Joints: Xnin-ri-iynhnyai bilateral facet joint hypertrophy. Neural foramina: Mild bilateral neural foraminal narrowing Spinal Canal: Mild left subarticular zone narrowing. Negative for central spinal narrowing. L3-4: Vertebral bodies: Anterior osteophyte formation. Disk Space: Disc desiccation. Moderate loss of disc height. Schmorl's node superior endplate of L4 with mild edematous changes. Hemangioma of L4. Facet Joints: Ehhirznv-pw-ooubct bilateral facet joint hypertrophy. Neural foramina: Severe bilateral neural foraminal narrowing Spinal Canal: Severe bilateral subarticular zone narrowing. Severe central spinal narrowing. L4-5: Vertebral bodies: Mild anterior osteophyte formation. Disk Space: Disc desiccation moderate loss of disc height. Negative for Modic changes. Facet Joints: Severe bilateral bilateral facet joint hypertrophy. Neural foramina: Moderate to severe right and moderate left neural foraminal narrowing Spinal Canal: Severe right subarticular zone narrowing. Moderate right central spinal narrowing. L5-S1: Vertebral bodies: Negative. Disk Space: Negative. Negative for Modic changes. Facet Joints: Mild bilateral bilateral facet joint hypertrophy. Neural foramina: Negative for neural foraminal narrowing Spinal Canal: Negative for subarticular zone narrowing. Negative for central spinal narrowing. Vertebrae: Moderate scoliosis convex right in the mid lumbar spine. Otherwise normal bone marrow signal. Conus Medullaris: Spinal cord is normal and ends at L1. Imaged kidneys aorta otherwise negative. The remainder of the exam negative. MRI/Spine Lumbar (Routine) IMPRESSION: Multilevel multifactorial degenerative changes lumbar spine overall most prominent L3-L4 and L4-5 as above. Reading Location: [id number] CC: Dr. Ligia Mcrae, Edge Banding Machine Offbearer: Signed Normal [facility] Surgery Specimen Level Mckenna 11-23-2024 Surgery Specimen Level IV Patient Age/Sex Location Account Attending Physician KRYSTIAN CHILD 79/M [facility] [id number] Dr. Ligia Mcrae, Specimen: [id number] Received: 11/23/24 Status: SHAMIKA Cash Num: [id number] Spec Type: Lesion Subm Dr: Dr. Ligia Mcrae, HEADER OPERATION: Excision skin lesion, left forearm PRE-OP [...] cassettes, to include the in cassette A1. [place] 11/24/2024 CPT:72338 Patient Age/Sex Location Account Attending Physician CHEKOKRYSTIAN Painter Azael 79/M [facility] [id number] Dr. Ligia Mcrae, DO Signed (signature on file) Dr. Yohana Reeves, 12/07/241925 Normal [facility] Comment on above: Performed By: #### P SUIV ####[facility] [address] [place], [address] Oncology Visit Reporton 09-22 Oncology Visit Report [facility] [place] [address] OFFICE VISIT Date of Service: 10/05/24 1443 MR#: [id number] Acct: [id number] Name: KRYSTIAN CHILD Rep #: [id number] : 1945 From: Oscar Winkler MD Age/Sex: 78/M Location: [facility] Status: Signed HPI Subjective Date of Service 10/05/24 Chief Complaint F/u for lupus anticoagulant positivity. History of Present Illness 78y.o.man was admitted in January 2019 at [facility] for pneumonia. He also had R middle lobe density. CT chest in March 2019 was normal. He was found to have abnormal/increase PTT which has persisted since that admission so was referred for evaluation. He denied bleeding gums, clotting, bleeding into soft tissue, joint bleeding or family history of bleeding. He is on observation. Had repeat blood work and comes for follow up. [facility] Medical History (Updated 10/05/24 @ 15:[address] Oscar Winkler MD) Back pain Wears glasses Arthritis Former smoker Leg cramps History of stress test ( 06/16/18) Hx of echocardiogram ( 06/26/18) Hx of lupus anticoagulant disorder TIA (transient ischemic attack) (07/2005) Wound cellulitis after surgery Essential (primary) hypertension Atherosclerosis of coronary artery of quechan heart without angina pectoris Scoliosis Osteoarthritis DDD [...] 1512 Date (more content not included)... Normal [facility] Lupus Anticoagulant Compon 0 - aPTT Coag (Bld) [Time] 92.4 s High 0.0-43.5 [facility] Comment on above: Performed By: #### L 4500.0100 ####[facility] [address] [place], [place], [address] aPTT Coag (Bld) [Time] 82.6 s High 0.0-40.5 [facility] Comment on above: Performed By: #### L 4500.0100 ####[facility] [address] [place], [address] DILUTE PT (dPT) 69.6 sec High 0.0-47.6 [facility] Comment on above: Performed By: #### L 4500.0100 ####[facility] [address] [place], [address] dPT Conf. Ratio 1.27 Ratio Normal 0.00-1.34 [facility] Comment on above: Performed By: #### L 4500.0100 ####[facility] [address] [place], [address] DRVVT 61.5 sec Abnormal 0.0-47.0 [facility] Comment on above: Performed By: #### L 4500.0100 ####[facility] [address] [place], [address] DRVVT CONFIRM 1.4 ratio Abnormal 0.8-1.2 [facility] Comment on above: Performed By: #### L 4500.0100 ####[facility] [address] [place], [address] dRVVT MIX 59.8 sec Abnormal 0.0-40.4 [facility] Comment on above: Performed By: #### L 4500.0100 ####[facility] [address] [place], [address] HEX PHAS PHOSPH 49 sec Abnormal 0-11 [facility] Comment on above: Performed By: #### L 4500.0100 ####[facility] [address] [place], [address] Interpretation Comment: Normal . [facility] Comment on above: Result Comment: Resu [...] beta-2 glycoprotein 1 antibody testing. Performed at: [address] [id number] Pets Salesperson: Kim Brito MD, Phone: [phone] Performed By: #### L 4500.0100 ####[facility] [address] [facility] [place], [place], [id number] THROMBIN TIME 19.2 sec Normal 0.0-23.0 [facility] Comment on above: Performed By: #### L 4500.0100 ####[facility] [address] [place], [place], [id number] Absolute lymphocyte countOrd ered By: Oscar Winkler on 09-22-2024 Lymphocytes Auto (Unsp spec) [#/Vol] 1.86 10*3/uL 0.83-4.51 [facility] Absolute neutrophil countOrd ered By: [facility] on 09-22-2024 Neutrophils (Bld) [#/Vol] 4.5 10*3/uL 2.0-7.7 [facility] Activated partial thrombopla stin time (aPTT) in platelet poor plasma by coagulation aOrdered By: Oscar Winkler on 09-22-2024 aPTT Coag (PPP) [Time] 53.8 s High 24.1-36.2 [facility] Anion gap in Serum or Plasma Ordered By: Oscar Winkler on 09-22-2024 Anion gap [Moles/Vol] 12 mmol/L 5-15 [facility] Automated lymphocyte count a s percentage of total leukocytesOrdered By: Oscar Winkler on 09-22-2024 Lymphocytes/100 WBC Auto (Unsp spec) 26.1 % 19-41 [facility] BUN/creatinine ratioOrdered By: Oscar Winkler on 09-22-2024 Urea nitrogen/Creatinine [Mass ratio] 19.8 mg/mg 10-20 [facility] Basophil percentageOrdered B y: Oscar Winkler on 09-22-2024 Basophils/100 WBC (Bld) 0.3 % 0-1 [facility] Bilirubin, totalOrdered By: Oscar Winkler on 09-22-2024 Bilirubin [Mass/Vol] 0.34 mg/dL 0.00-1.30 [facility] CBC W/Diff, Automatedon -2024 Absolute Lymph 1.86 X10 3/uL Normal 0.83-4.51 [facility] Comment on above: Performed By: #### L 300.3900, L300.4310, L500.4050, L100.0100 #### [facility] [address] [place], [address] Absolute Neut 4.5 X10 3/uL Normal 2.0-7.7 [facility] Comment on above: Performed By: #### L 300.3900, L300.4310, L500.4050, L100.0100 #### [facility] [address] [place], [address] Basophils/100 WBC (Bld) 0.3 % Normal 0-1 [facility] Comment on above: Performed By: #### L 300.3900, L300.4310, L500.4050, L100.0100 #### [facility] [address] [place], [address] Eosinophils/100 WBC (Bld) 2.4 % Normal 0-5 [facility] Comment on above: Performed By: #### L 300.3900, L300.4310, L500.4050, L100.0100 #### [facility] [address] [place], [address] Erythrocyte distribution width (RBC) [Ratio] 13.7 % Normal 11.6-14.6 [facility] Comment on above: Performed By: #### L 300.3900, L300.4310, L500.4050, L100.0100 #### [facility] [address] [place], [address] Hematocrit (Bld) [Volume fraction] 42.3 % Normal 40-54 [facility] Comment on above: Performed By: #### L 300.3900, L300.4310, L500.4050, L100.0100 #### [facility] [address] [place], [address] Hemoglobin (Bld) [Mass/Vol] 14.6 g/dL Normal 13.0-16.5 [facility] Comment on above: Performed By: #### L 300.3900, L300.4310, L500.4050, L100.0100 #### [facility] [address] [place], [address] IG% 0.300 Normal 0.0-0.9 [facility] Comment on above: Result Comment: IG% - Immature Granulocytes (promyelocytes, myelocytes and metamyelocytes) > 1% indicates that a LEFT SHIFT is Present. Performed By: #### L 300.3900, L300.4310, L500.4050, L100.0100 #### [facility] [address] [place], [address] Lymphocytes/100 WBC (Bld) 26.1 % Normal 19-41 [facility] Comment on above: Performed By: #### L 300.3900, L300.4310, L500.4050, L100.0100 #### [facility] [address] [place], [address] MCH (RBC) [Entitic mass] 32.0 pg Normal 27.0-32.0 [facility] Comment on above: Performed By: #### L 300.3900, L300.4310, L500.4050, L100.0100 #### [facility] [address] [place], [address] MCHC (RBC) [Mass/Vol] 34.5 g/dL Normal 32-36 [facility] Comment on above: Performed By: #### L 300.3900, L300.4310, L500.4050, L100.0100 #### [facility] [address] [place], [address] MCV (RBC) [Entitic vol] 92.8 fL Normal 80-94 [facility] Comment on above: Performed By: #### L 300.3900, L300.4310, L500.4050, L100.0100 #### [facility] [address] [place], [address] Monocytes/100 WBC (Bld) 8.1 % Normal 0-10 [facility] Comment on above: Performed By: #### L 300.3900, L300.4310, L500.4050, L100.0100 #### [facility] [address] [place], [address] Neutrophils/100 WBC (Bld) 62.8 % Normal 47-70 [facility] Comment on above: Performed By: #### L 300.3900, L300.4310, L500.4050, L100.0100 #### [facility] [address] [place], [address] Nucleated RBC (Bld) [#/Vol] 0 10*3/uL Normal 0-5 [facility] Comment on above: Performed By: #### L 300.3900, L300.4310, L500.4050, L100.0100 #### [facility] [address] [place], [address] Platelet mean volume (Bld) [Entitic vol] 10.8 fL Normal 6.2-12.0 [facility] Comment on above: Performed By: #### L 300.3900, L300.4310, L500.4050, L100.0100 #### [facility] [address] [place], [address] Platelets (Bld) [#/Vol] 165 10*3/uL Normal 150-450 [facility] Comment on above: Performed By: #### L 300.3900, L300.4310, L500.4050, L100.0100 #### [facility] [address] [place], [address] RBC (Bld) [#/Vol] 4.56 10*6/uL Low 4.6-6.2 [facility] Comment on above: Performed By: #### L 300.3900, L300.4310, L500.4050, L100.0100 #### [facility] [address] [place], [address] RDW SD 46.4 fl High 35.1-43.9 [facility] Comment on above: Performed By: #### L 300.3900, L300.4310, L500.4050, L100.0100 #### [facility] [address] [place], [address] WBC (Bld) [#/Vol] 7.1 10*3/uL Normal 4.4-11.0 [facility] Comment on above: Performed By: #### L 300.3900, L300.4310, L500.4050, L100.0100 #### [facility] [address] [place], [address] Carbon dioxide, total [Moles /volume] in Central venous bloodOrdered By: Oscar Winkler on 09-22-2024 CO2 [Moles/Vol] 22.4 mmol/L 21.0-32.0 [facility] Chloride assayOrdered By: Karla Winkler on 09-22-2024 Chloride [Moles/Vol] 105 mmol/L 98-108 [facility] Comprehensive Metabolic Prof ilon 09-22-2024 Albumin [Mass/Vol] 4.1 g/dL Normal 3.4-4.8 [facility] Comment on above: Performed By: #### L 300.3900, L300.4310, L500.4050, L100.0100 #### [facility] [address] [place], [address] Albumin/Globulin [Mass ratio] 1.5 {ratio} Normal 0.9-2.4 [facility] Comment on above: Performed By: #### L 300.3900, L300.4310, L500.4050, L100.0100 #### [facility] [address] [place], [address] ALK PHOS 58 U/L Normal 40-129 [facility] Comment on above: Performed By: #### L 300.3900, L300.4310, L500.4050, L100.0100 #### [facility] [address] [place], [address] ALT [Catalytic activity/Vol] 29 U/L Normal <=46 [facility] Comment on above: Performed By: #### L 300.3900, L300.4310, L500.4050, L100.0100 #### [facility] [address] [place], [address] AST [Catalytic activity/Vol] 26 U/L Normal <=37 [facility] Comment on above: Performed By: #### L 300.3900, L300.4310, L500.4050, L100.0100 #### [facility] [address] [place], [address] Bilirubin [Mass/Vol] 0.34 mg/dL Normal 0.00-1.30 [facility] Comment on above: Performed By: #### L 300.3900, L300.4310, L500.4050, L100.0100 #### [facility] [address] [place], [address] BUN/CRE 19.8 RATIO Normal 10-20 [facility] Comment on above: Performed By: #### L 300.3900, L300.4310, L500.4050, L100.0100 #### [facility] [address] [place], [address] Calcium [Mass/Vol] 9.3 mg/dL Normal 7.6-11.0 [facility] Comment on above: Performed By: #### L 300.3900, L300.4310, L500.4050, L100.0100 #### [facility] [address] [place], [address] Chloride [Moles/Vol] 105 mmol/L Normal 98-108 [facility] Comment on above: Performed By: #### L 300.3900, L300.4310, L500.4050, L100.0100 #### [facility] [address] [place], [address] CO2 [Moles/Vol] 22.4 mmol/L Normal 21.0-32.0 [facility] Comment on above: Performed By: #### L 300.3900, L300.4310, L500.4050, L100.0100 #### [facility] [address] [place], [address] Creatinine [Mass/Vol] 1.42 mg/dL High 0.70-1.20 [facility] Comment on above: Performed By: #### L 300.3900, L300.4310, L500.4050, L100.0100 #### [facility] [address] [place], [address] ECRCL 42.84 ml/min Low 50-250 [facility] Comment on above: Performed By: #### L 300.3900, L300.4310, L500.4050, L100.0100 #### [facility] [address] [place], [address] GAP 12 Normal 5-15 [facility] Comment on above: Performed By: #### L 300.3900, L300.4310, L500.4050, L100.0100 #### [facility] [address] [place], [address] GFR/1.73 sq M.predicted among non-blacks MDRD (S/P/Bld) [Vol rate/Area] 50 mL/min/{1.73_m2} Low >60 [facility] Comment on above: Result Comment: mL/m in/1.73m2 CKD-EPI Creatinine Equation (2020) Performed By: #### L 300.3900, L300.4310, L500.4050, L100.0100 #### [facility] [address] [place], [address] Globulin (S) [Mass/Vol] 2.7 g/dL Normal 2.2-4.2 [facility] Comment on above: Performed By: #### L 300.3900, L300.4310, L500.4050, L100.0100 #### [facility] [address] [place], [address] Glucose [Mass/Vol] 123 mg/dL High 70-99 [facility] Comment on above: Performed By: #### L 300.3900, L300.4310, L500.4050, L100.0100 #### [facility] [address] [place], [address] Potassium [Moles/Vol] 4.5 mmol/L Normal 3.3-5.1 [facility] Comment on above: Performed By: #### L 300.3900, L300.4310, L500.4050, L100.0100 #### [facility] [address] [place], [address] Sodium [Moles/Vol] 139 mmol/L Normal 133-145 [facility] Comment on above: Performed By: #### L 300.3900, L300.4310, L500.4050, L100.0100 #### [facility] [address] [place], [address] T PROT 6.8 g/dL Normal 5.9-8.4 [facility] Comment on above: Performed By: #### L 300.3900, L300.4310, L500.4050, L100.0100 #### [facility] [address] [place], [address] Urea nitrogen [Mass/Vol] 28 mg/dL High 4-19 [facility] Comment on above: Performed By: #### L 300.3900, L300.4310, L500.4050, L100.0100 #### [facility] [address] [place], [address] DRVVT confirmOrdered By: Ruddy Winkler on 09-22-2024 dRVVT actual/normal Coag (PPP) [Relative time] 1.4 ratio High 0.8-1.2 [facility] Dilute Venkata's viper venom timeOrdered By: Oscar Winkler on 09-22-2024 dRVVT Coag (PPP) [Time] 61.5 s High 0.0-47.0 [facility] dRVVT Coag (PPP) [Time] 59.8 s High 0.0-40.4 [facility] Eosinophil percentageOrdered By: Oscar Winkler on 09-22-2024 Eosinophils/100 WBC (Bld) 2.4 % 0-5 [facility] Erythrocyte distribution wid th ratioOrdered By: Oscar Winkler on 09-22-2024 Erythrocyte distribution width (RBC) [Ratio] 13.7 % 11.6-14.6 [facility] Erythrocyte distribution wid th standard deviationOrdered By: Oscar Winkler on 09-22-2024 Erythrocyte distribution width (RBC) [Ratio] 46.4 fl High 35.1-43.9 [facility] Glomerular filtration rate ( GFR) estimation/1.73 sq m using serum, plasma, or whole bOrdered By: Oscar Winkler on 09-22-2024 GFR/1.73 sq M.predicted among non-blacks MDRD (S/P/Bld) [Vol rate/Area] 50 mL/min/{1.73_m2} Low >60 [facility] Comment on above: mL/min/1.73m2 CKD-EP I Creatinine Equation (2020) Hematocrit Auto (Bld) [Volum e fraction]Ordered By: Oscar Winkler on 09-22-2024 Hematocrit (Bld) [Volume fraction] 42.3 % 40-54 [facility] Hemoglobin measurementOrdere d By: Oscar Winkler on 09-22-2024 Hemoglobin (Bld) [Mass/Vol] 14.6 g/dL 13.0-16.5 [facility] Immature granulocytes/100 WB C Auto (Bld)Ordered By: Oscar Winkler on 09-22-2024 Immature granulocytes/100 WBC (Bld) 0.300 % 0.0-0.9 [facility] Comment on above: IG% - Immature Granu locytes (promyelocytes, myelocytes and metamyelocytes) > 1% indicates that a LEFT SHIFT is Present. International normalized rat io (INR) calculationOrdered By: Oscar Winkler on 09-22-2024 INR Coag (Bld) [Relative time] 1.0 {INR} [facility] Laboratory - Chemistry and C hemistry - challengeOrdered By: Oscar Winkler on 09-22-2024 AST [Catalytic activity/Vol] 26 U/L <38 [facility] MCV (mean corpuscular volume ) determinationOrdered By: Oscar Winkler on 09-22-2024 MCV (RBC) [Entitic vol] 92.8 fL 80-94 [facility] Mean corpuscular hemoglobin (MCH) determinationOrdered By: [facility] on 09-22-2024 MCH (RBC) [Entitic mass] 32.0 pg 27.0-32.0 [facility] Mean corpuscular hemoglobin concentration (MCHC) determinationOrdered By: Oscar Winkler on 09-22-2024 MCHC (RBC) [Mass/Vol] 34.5 g/dL 32-36 [facility] Mean platelet volume determi nationOrdered By: Oscar Winkler on 09-22-2024 Platelet mean volume (Bld) [Entitic vol] 10.8 fL 6.2-12.0 [facility] Monocyte percentageOrdered B y: Oscar Winkler on 09-22-2024 Monocytes/100 WBC (Bld) 8.1 % 0-10 [facility] Neutrophil percentageOrdered By: Oscar Winkler on 09-22-2024 Neutrophils/100 WBC (Bld) 62.8 % 47-70 [facility] Nucleated red blood cell per centageOrdered By: Oscar Winkler on 09-22-2024 Nucleated RBC/100 WBC (Bld) [Ratio] 0 % 0-5 [facility] Partial Thromboplast Timeon 09-22-2024 aPTT Coag (Bld) [Time] 53.8 s High 24.1-36.2 [facility] Comment on above: Performed By: #### L 300.3900, L300.4310, L500.4050, L100.0100 #### [facility] Laboratory [address] [place], [address] Plasma lupus anticoagulant d etection by hexagonal phase phospholipid neutralizationOrdered By: Oscar Winkler on 09-22-2024 aPTT W excess hexagonal phase phospholipid Ql (PPP) 49 sec High 0-11 [facility] Platelet countOrdered By: Karla Winkler on 09-22-2024 Platelets (Bld) [#/Vol] 165 10*3/uL 150-450 [facility] Potassium measurement (mass/ volume)Ordered By: Oscar Winkler on 09-22-2024 Potassium (Unsp spec) [Mass/Vol] 4.5 mmol/L 3.3-5.1 [facility] Prothrombin Time w/INRon INR Coag (PPP) [Relative time] 1.0 {INR} Normal [facility] Comment on above: Performed By: #### L 300.3900, L300.4310, L500.4050, L100.0100 #### [facility] Laboratory [address] [place], [address] PT Coag (PPP) [Time] 13.6 s Normal 11.7-14.9 [facility] Comment on above: Performed By: #### L 300.3900, L300.4310, L500.4050, L100.0100 #### [facility] [address] [place], [address] Prothrombin timeOrdered By: Oscar Winkler on 09-22-2024 PT Coag (PPP) [Time] 13.6 s 11.7-14.9 [facility] RBC Auto (Bld) [#/Vol]Ordere d By: Oscar Winkler on 09-22-2024 RBC (Bld) [#/Vol] 4.56 10*6/uL Low 4.6-6.2 [facility] Serum creatinine measurement (mass/volume)Ordered By: Oscar Winkler on 09-22-2024 Creatinine [Mass/Vol] 1.42 mg/dL High 0.70-1.20 [facility] Serum globulin measurementOr dered By: Oscar Winkler on 09-22-2024 Globulin (S) [Mass/Vol] 2.7 g/dL 2.2-4.2 [facility] Serum glucose measurement (m ass/volume)Ordered By: Oscar Winkler on 09-22-2024 Glucose [Mass/Vol] 123 mg/dL High 70-99 [facility] Serum or plasma alanine mills otransferase (ALT) measurementOrdered By: Oscar Winkler on 09-22-2024 ALT [Catalytic activity/Vol] 29 U/L <47 [facility] Serum or plasma albumin delisa urement (mass/volume)Ordered By: Oscar Winkler on 09-22-2024 Albumin [Mass/Vol] 4.1 g/dL 3.4-4.8 [facility] Serum or plasma albumin/glob ulin mass ratioOrdered By: Oscar Winkler on 09-22-2024 Albumin/Globulin [Mass ratio] 1.5 {ratio} 0.9-2.4 [facility] Serum or plasma alkaline edgardo sphatase measurementOrdered By: Oscar Winkler on 09-22-2024 ALP [Catalytic activity/Vol] 58 U/L 40-129 [facility] Serum or plasma calcium delisa urement (mass/volume)Ordered By: Oscar Winkler on 09-22-2024 Calcium [Mass/Vol] 9.3 mg/dL 7.6-11.0 [facility] Serum or plasma urea nitroge n measurement (mass/volume)Ordered By: Oscar Winkler on 09-22-2024 Urea nitrogen [Mass/Vol] 28 mg/dL High 4-19 [facility] Sodium levelOrdered By: Rubens Winkler on 09-22-2024 Sodium [Moles/Vol] 139 mmol/L 133-145 [facility] Thrombin timeOrdered By: Ruddy Winkler on 09-22-2024 Thrombin time Coag (PPP) [Time] 19.2 sec 0.0-23.0 [facility] Total proteinOrdered By: Ruddy Winkler on 09-22-2024 Protein [Mass/Vol] 6.8 g/dL 5.9-8.4 [facility] White blood cell (WBC) count Ordered By: Oscar Winkler on 09-22-2024 WBC (Bld) [#/Vol] 7.1 10*3/uL 4.4-11.0 [facility] Lactate dehydrogenase (LDH) measurementOrdered By: Oscar Winkler on 09-30-2023 LDH [Catalytic activity/Vol] 163 U/L 87-241 [facility] Absolute lymphocyte countOrd ered By: Dr. Mcrae on 07-31-2022 Lymphocytes Auto (Unsp spec) [#/Vol] 1.04 10*3/uL 0.83-4.51 [facility] Basophil percentageOrdered B y: Dr. Mcrae on 07-31-2022 Basophils/100 WBC (Bld) 0.1 % 0-1 [facility] Eosinophils/100 WBC (Bld) 1.2 % 0-5 [facility] Neutrophils (Bld) [#/Vol] 5.3 10*3/uL 2.0-7.7 [facility] Neutrophils/100 WBC (Bld) 70.8 % 47-70 [facility] WBC (Bld) [#/Vol] 7.5 10*3/uL 4.4-11.0 [facility] Blood erythrocytes count (nu mber/volume)Ordered By: Dr. Mcrae on 07-31-2022 RBC (Bld) [#/Vol] 4.36 10*6/uL 4.6-6.2 [facility] Blood hemoglobin measurement (mass/volume)Ordered By: Dr. Mcrae on 07-31-2022 Hemoglobin (Bld) [Mass/Vol] 13.9 g/dL 13.0-16.5 [facility] Blood lymphocytes/100 leukoc ytesOrdered By: Dr. Mcrae on 07-31-2022 Lymphocytes/100 WBC (Bld) 13.9 % 19-41 [facility] Blood monocytes/100 leukocyt esOrdered By: Dr. Mcrae on 07-31-2022 Monocytes/100 WBC (Bld) 13.6 % 0-10 [facility] Blood platelet mean volumeOr dered By: Dr. Mcrae on 07-31-2022 Platelet mean volume (Bld) [Entitic vol] 11.8 fL 6.2-12.0 [facility] COVID-19 virus antigen assay Ordered By: Dr. Mcrae on 07-31-2022 SARS-CoV-2 (COVID-19) Ag IA.rapid Ql (Resp) [facility] Determination of erythrocyte mean corpuscular volume (MCV)Ordered By: Dr. Mcrae on 07-31-2022 MCV (RBC) [Entitic vol] 95.9 fL 80-94 [facility] Hematocrit Auto (Bld) [Volum e fraction]Ordered By: Dr. Mcrae on 07-31-2022 Hematocrit (Bld) [Volume fraction] 41.8 % 40-54 [facility] Laboratory - Hematology and Cell countsOrdered By: Dr. Mcrae on 07-31-2022 Erythrocyte distribution width (RBC) [Entitic vol] 47.3 fL 35.1-43.9 [facility] Erythrocyte distribution width (RBC) [Ratio] 13.4 % 11.6-14.6 [facility] Immature granulocytes/100 WBC (Bld) 0.400 % 0.0-0.9 [facility] Comment on above: IG% - Immature Granu locytes (promyelocytes, myelocytes and metamyelocytes) > 1% indicates that a LEFT SHIFT is Present. MCH (RBC) [Entitic mass] 31.9 pg 27.0-32.0 [facility] Nucleated RBC/100 WBC (Bld) [Ratio] 0 % 0-5 [facility] MCHC Auto (RBC) [Mass/Vol]Or dered By: Dr. Mcrae on 07-31-2022 MCHC (RBC) [Mass/Vol] 33.3 g/dL 32-36 [facility] Platelets bldOrdered By: Dr. Mcrae on 07-31-2022 Platelets (Bld) [#/Vol] 126 10*3/uL 150-450 [facility] Absolute lymphocyte counton 09-30-2021 Lymphocytes Auto (Unsp spec) [#/Vol] 1.54 10*3/uL 0.83-4.51 [facility] Work Phone: [phone] Basophil percentageon 2021 Basophils/100 WBC (Bld) 0.2 % 0-1 [facility] Work Phone: [phone] Bilirubin [Mass/Vol] 0.40 mg/dL 0.20-1.00 [facility] Work Phone: Comment on above: For patients on eltr ombopag therapy, use of Dimension [place] TBIL is not recommended. Chloride [Moles/Vol] 108 mmol/L 98-107 [facility] Work Phone: [phone] Eosinophils/100 WBC (Bld) 3.8 % 0-5 [facility] Work Phone: [phone] Glucose [Mass/Vol] 100 mg/dL 74-106 [facility] Work Phone: Comment on above: Fasting Glucose resu lt from 100 to 125 mg/dL suggests IMPAIRED HOMEOSTASIS per A.D.A. criteria. Neutrophils (Bld) [#/Vol] 2.4 10*3/uL 2.0-7.7 [facility] Work Phone: [phone] Neutrophils/100 WBC (Bld) 52.8 % 47-70 [facility] Work Phone: Potassium [Moles/Vol] 4.3 mmol/L 3.5-5.1 [facility] Work Phone: Protein [Mass/Vol] 7.2 g/dL 6.4-8.2 [facility]: Sodium [Moles/Vol] 140 mmol/L 136-145 [facility] Work Phone: WBC (Bld) [#/Vol] 4.5 10*3/uL 4.4-11.0 [facility] Work Phone: Blood erythrocytes count (nu mber/volume)on 09-30-2021 RBC (Bld) [#/Vol] 4.61 10*6/uL 4.6-6.2 [facility] Work [facility]: Blood hemoglobin measurement (mass/volume)on 09-30-2021 Hemoglobin (Bld) [Mass/Vol] 15.0 g/dL 13.0-16.5 [facility] Work Phone: Blood lymphocytes/100 leukoc yteson 09-30-2021 Lymphocytes/100 WBC (Bld) 34.3 % 19-41 [facility] Work Phone: Blood monocytes/100 leukocyt eson 09-30-2021 Monocytes/100 WBC (Bld) 8.7 % 0-10 [facility] Work Phone: Blood platelet mean volumeon 09-30-2021 Platelet mean volume (Bld) [Entitic vol] 10.4 fL 6.2-12.0 [facility] Work Phone: Determination of erythrocyte mean corpuscular volume (MCV)on 09-30-2021 MCV (RBC) [Entitic vol] 93.9 fL 80-94 [facility] Work Phone: Dilute Venkata's viper venom timeon 09-30-2021 dRVVT Coag (PPP) [Time] 74.2 s 0.0-47.0 [facility] Work Phone: Hematocrit Auto (Bld) [Volum e fraction]on 09-30-2021 Hematocrit (Bld) [Volume fraction] 43.3 % 40-54 [facility] Work Phone: INR in Blood by Coagulation assayon 09-30-2021 INR Coag (Bld) [Relative time] 1.0 {INR} [facility] Work Phone: [phone] Laboratory - Chemistry and C hemistry - challengeon 09-30-2021 ALP [Catalytic activity/Vol] 50 U/L 45-117 [facility] Work Phone: ALT [Catalytic activity/Vol] 23 U/L 16-61 [facility] Work Phone: CO2 [Moles/Vol] 26.0 mmol/L 21.0-32.0 [facility] Work Phone: Globulin (S) [Mass/Vol] 3.7 g/dL 2.2-4.2 [facility] Work Phone: Urea nitrogen/Creatinine [Mass ratio] 19.6 mg/mg 10-20 [facility] Work Phone: Laboratory - Coagulationon 0 09-30-2021 aPTT Coag (Bld) [Time] 65.7 s 24.1-36.2 [facility] Work Phone: PT Coag (PPP) [Time] 13.2 s 11.7-14.9 [facility] Work Phone: Laboratory - Hematology and Cell countson 09-30-2021 Erythrocyte distribution width (RBC) [Entitic vol] 45.0 fL 35.1-43.9 [facility] Work Phone: Erythrocyte distribution width (RBC) [Ratio] 13.2 % 11.6-14.6 [facility] Work Phone: Immature granulocytes/100 WBC (Bld) 0.200 % 0.0-0.9 [facility] Work Phone: [phone] Comment on above: IG% - Immature Granu locytes (promyelocytes, myelocytes and metamyelocytes) > 1% indicates that a LEFT SHIFT is Present. MCH (RBC) [Entitic mass] 32.5 pg 27.0-32.0 [facility] Work Phone: Nucleated RBC/100 WBC (Bld) [Ratio] 0 % 0-5 [facility] Work Phone: MCHC Auto (RBC) [Mass/Vol]on 09-30-2021 MCHC (RBC) [Mass/Vol] 34.6 g/dL 32-36 [facility] Work Phone: No Panel Informationon 09-30 Estimated Creatinine Clearance Calc 57.03 ml/min [facility] Work Phone: Estimated GFR (MDRD) Amer 82 mL/min >60 [facility] Work Phone: Comment on above: GFR Calc Estimated GFR (MDRD) Non-Af Amer 67 mL/min >60 [facility] Work Phone: Comment on above: Non- GFR Calc Hexagonal Phase Phospholipid 24 sec 0-11 [facility] Work Phone: Platelets bldon 09-30-2021 Platelets (Bld) [#/Vol] 170 10*3/uL 150-450 [facility] Work Phone: Serum or plasma albumin delisa urement (mass/volume)on 09-30-2021 Albumin [Mass/Vol] 3.5 g/dL 3.2-5.0 [facility] Work Phone: Serum or plasma albumin/glob ulin mass ratioon 09-30-2021 Albumin/Globulin [Mass ratio] 0.9 {ratio} 0.9-2.4 [facility] Work Phone: Serum or plasma calcium delisa urement (mass/volume)on 09-30-2021 Calcium [Mass/Vol] 8.7 mg/dL 8.5-10.1 [facility] Work Phone: Serum or plasma creatinine m easurement (mass/volume)on 09-30-2021 Creatinine [Mass/Vol] 1.12 mg/dL 0.70-1.30 [facility] Work Phone: Comment on above: The validity of the calculated GFR & GFRAA in patients over 70 years has not been determined. Clinical correlation is essential. Serum or plasma urea nitroge n measurement (mass/volume)on 09-30-2021 Urea nitrogen [Mass/Vol] 22 mg/dL 7-18 [facility] Work Phone: Thin prep Papanicolaou smear with manual screeningon 09-30-2021 Thin prep Papanicolaou smear with manual screening 16 U/L 15-37 [facility] Work Phone: Thin prep Papanicolaou smear with manual screening 6 5-15 [facility] Work Phone: Thin prep Papanicolaou smear with manual screening 170 U/L 87-241 [facility] Work Phone: Thin prep Papanicolaou smear with manual screening 80.4 sec 0.0-47.6 [facility] Work Phone: [phone] Thin prep Papanicolaou smear with manual screening 1.39 Ratio 0.00-1.34 [facility] Work Phone: Thin prep Papanicolaou smear with manual screening 87.4 sec 0.0-51.9 [facility] Work Phone: Thin prep Papanicolaou smear with manual screening 83.3 sec 0.0-48.9 [facility] Work Phone: Thin prep Papanicolaou smear with manual screening Comment: . [facility] Work Phone: Comment on above: Results [...] and beta-2 glycoprotein 1 antibody testing.Performed at: [id number] [place], [place] [id number] Director: Kim Brito MD, Phone: [phone] Thrombin time in platelet po or plasmaon 09-30-2021 Thrombin time Coag (PPP) [Time] 18.4 sec 0.0-23.0 [facility] Work Phone: Basophil percentageon 2020 Cholesterol [Mass/Vol] 232 mg/dL High <200 [facility] Comment on above: <200 mg/dL Desirable 200-240 mg/dL Borderline >240 mg/dL High Risk Triglyceride [Mass/Vol] 220 mg/dL High <199 [facility] Comment on above: The drugs N-Acetylcy steine and Metamizole may falsely depress this assay.Serum Triglycerides Reference Interval Normal <150 mg/dL Borderline high 150 - 199 mg/dL High 200 - 499 mg/dL Very High > or = 500 mg/dL No Panel Informationon 10-03 Prostate Specific Antigen Screen 0.55 ng/mL 0.00-4.00 [facility] Comment on above: This test was perfor med using the TPSA assay method for the[employer] chemistry system. Values obtained with differentassay methods cannot be used interchangably.When changing PSA assays in the course of monitoring apatient, additional sequential testing should be carriedout to confirm baseline values. Serum or plasma cholesterol in HDL measurement (mass/volume)on 10-03-2020 Cholesterol in HDL [Mass/Vol] 36 mg/dL Low >40 [facility] Comment on above: The drugs N-Acetylcy steine and Metamizole may falsely depress this assay. Reference Range HDL <40 mg/dL Low HDL Cholesterol HDL >or= 60 mg/dL High HDL Cholesterol Serum or plasma cholesterol in VLDL measurement (mass/volume)on 10-03-2020 Cholesterol in VLDL [Mass/Vol] 44 mg/dL High 5-40 [facility] Serum or plasma low density lipoprotein (LDL) cholesterol measurement (mass/volume)on 10-03-2020 Cholesterol in LDL [Mass/Vol] 152 mg/dL High 0-130 [facility] Laboratory - Chemistry and C hemistry - challengeon 10-12-2019 Cobalamin (Vitamin B12) [Mass/Vol] 251 pg/mL 211-911 [facility] Erythrocyte sedimentation ra shantelle 03-31-2019 ESR (Bld) [Velocity] 29 mm/h High 0-20 [facility] Hemoglobin in reticulocytes (mass per reticulocyte)on 03-31-2019 Hemoglobin (Reticulocytes) [Entitic mass] 38.1 pg High 30-35 [facility] Iron measurement (mass/mass) on 03-31-2019 Iron (Unsp spec) [Mass/Mass] 107 ug/dL 65-175 [facility] Laboratory - Chemistry and C hemistry - challengeon 03-31-2019 T4 [Mass/Vol] 8.4 ug/dL 4.5-12.1 [facility] No Panel Informationon 03-31 Addendum Document Comment . [facility] Comment on above: Protein electrophore sis scan will follow via computer,mail, or warehouse guard delivery.Performed at: [facility] [address] [id number] Director: Kim Brito MD, Phone: [phone] at: [facility] [id number] Director: Josiah Patiño PhD, Phone: [phone] Aoeej-5-Xwpwknmvi (ISAMAR) 0.6 g/dL 0.4-1.0 [facility] Beta-Globulins (ISAMAR) 1.0 g/dL 0.7-1.3 [facility] D-Dimer Quantitative (PE/DVT) 0.73 FEU/ug/m High 0.27-0.49 [facility] Comment on above: D-Dimer ELEVATED (>0 .49): Additional studies and clinicalassessments are indicated to conclude diagnosis of:Deep Vein Thrombosis (DVT) or Pulmonary Embolism (PE)CRITICAL VALUE VERIFIED. CALLED TO NAEEM RN03/31/19 0987 Shannen Grayson.RESULTS READ BACK BY NAEEM . Fibrinogen 382 mg/dl 203-444 [facility] Folate 16.00 ng/mL 3.1-55.4 [facility] Free [place] Light Chains, Quant 27.5 mg/L High 3.3-19.4 [facility] Free [place]/Lambda Light Chain Ratio 1.94 High 0.26-1.65 [facility] Comment on above: Performed at: [facility] [address] [id number] Director: Josiah Patiño PhD, Phone: [phone] Free Lambda Light Chains, Quant 14.2 mg/L 5.7-26.3 [facility] Immature Reticulocyte Fraction 5.40 % 3.00-15.90 [facility] Immunofixation Screen Comment . [facility] Comment on above: No monoclonality det ected. Miscellaneous Test See comment [facility] Comment on above: TEST RESULT UNITS RE [...] interpretation is provided for theassays performed at [facility]. InterpretiveSynopsis:A lupus anticoagulant is detected. This [...] antigen and activity,depending on clinical scenario.Please contact [employer] if furtherclarification is needed. Jaxson Martinez M.D. [id number] VIII Activity % No valid result obtained.Factor [...] 1:1 Saline 39.6 sec TESTING PERFORMED AT [facility]. ORIGINAL REPORT ON FILE IN LAB CONTAINS ADDITIONAL TEST SITE INFORMATION. Reticulocyte Count 0.82 % 0.5-1.5 [facility] Thyroid Stimulating Hormone (TSH) 1.34 uIU/mL 0.358-3.74 [facility] Total Iron Binding Capacity 258 ug/dL 250-450 [facility] Protein electrophoresis pane callie 03-31-2019 Protein [Mass/Vol] 6.2 g/dL 6.0-8.5 [facility] Serum [id number] measu rement by electrophoresison 03-31-2019 Alpha 1 globulin Elph [Mass/Vol] 0.2 g/dL 0.0-0.4 [facility] Serum or plasma IgA measurem ent (mass/volume)on 03-31-2019 IgA [Mass/Vol] 183 mg/dL 61-437 [facility] Serum or plasma IgG measurem ent (mass/volume)on 03-31-2019 IgG [Mass/Vol] 1058 mg/dL 700-1600 [facility] Serum or plasma IgM measurem ent (mass/volume)on 03-31-2019 IgM [Mass/Vol] 120 mg/dL 15-143 [facility] Serum or plasma albumin delisa urement (moles/volume)on 03-31-2019 Albumin [Moles/Vol] 3.3 g/dL 2.9-4.4 [facility] Serum or plasma ferritin imer surement (mass/volume)on 03-31-2019 Ferritin [Mass/Vol] 504 ng/mL High 26-388 [facility] Serum or plasma gamma globul in measurement by electrophoresis (mass/volume)on 03-31-2019 Gamma globulin Elph [Mass/Vol] 1.1 g/dL 0.4-1.8 [facility] Serum or plasma iron saturat ion measurement (mass fraction)on 03-31-2019 Iron saturation [Mass fraction] 41.5 % 15.0-55.0 [facility] Serum or plasma uric acid me asurement (mass/volume)on 03-31-2019 Urate [Mass/Vol] 6.2 mg/dL 3.5-7.2 [facility] Comment on above: The drugs N-Acetylcy steine and Metamizole may falsely depress this assay. Thin prep Papanicolaou smear with manual screeningon 03-31-2019 Thin prep Papanicolaou smear with manual screening See comment [facility] Work Phone: Comment on above: NOT OBSERVED Thin prep Papanicolaou smear with manual screening 1.2 0.7-1.7 [facility] Work Phone: Thrombin time in platelet po or plasmaon 03-31-2019 Thrombin time Coag (PPP) [Time] Not Reportable [facility] CNOVon 08-10-2018 CNOV Office Visit (ARMANI VOGEL) -- CHEKOKRYSTIAN Painter Azael ([id number]) 1945 M [facility] Date Time Provider Department 08/10/18 10:30 AM ORLANDO JACOBS During your visit today, we recorded the following information about you: Pulse Respiration Blood pressure Weight 72/minute 20/minute 138/64 101.6 kg Height 1.778 m Orlando Jacobs APRN.CNP 08/10/2018 11:52 AM Signed HPI:Krystian Child is [...] GRAFT(S) 07/01/2018 - COLONOSCOP W/ OR W/O [facility] SPEC Colonoscopy - COLONOSCOP W/ OR W/O [facility] SPEC 10/31/05 Repeat in -2010 - MOHS [...] on. he should follow up with his loan associate and PCP as scheduled, and only needs [...] help with this. - Please see your loan associate regularly. They will take over medication management. - Please feel free to call us if you have any post-operative concerns. Thank you for coming to see me today!! Orlando Jacobs APRN.CNP Referring Provider: SELF [[id number]] Allergies As of Date: 08/10/2018 (No Known Allergies) Date Reviewed: 08/10/2018 Reviewed by: Carley (Jim Pulido - Fully Assessed Reason for Visit: [...] help with this. - Please see your loan associate regularly. They will take over medication management. - Please feel free to call us if you have any post-operative concerns. Thank you for coming to see me today!! Orlando Jacobs, ELECTRICAL AUTOMATION ENGINEER.RESPIRATORY SUPERVISOR Medications Discontinued During This Encounter furosemide (LASIX) [...] Status:Closed by ORLANDO JACOBS CNP on 08/10/18 [facility] PROGRESSon 08-10-2018 Protein mass conc HNO ID: [id number] Author: Orlando Jacobs Service: ? Author Type: [...] GRAFT(S) 07/01/2018 - COLONOSCOP W/ OR W/O [facility] SPEC Colonoscopy - COLONOSCOP W/ OR W/O [facility] SPEC 10/31/05 Repeat in -2010 - MOHS [...] mg daily, atorvastatin -May begin cardiac rehabilitation -September drive -Follow-up with Dr. Stubbs scheduled 2. Wound cellulitis after surgery - ICD9: 998.59, ICD10: T81.49XA Resolved Orlando Jacobs APRN.CNP In summary, Patient is doing exceedingly well overall after his M CABG surgery, with no major complaints. Patient is released to drive, work. Patient should start cardiac rehab from this point on. he should follow up with his loan associate and PCP as scheduled, and only needs to be seen here on a as needed basis. Thanks. Electronically signed by Orlando Jacobs APRN.CNP on August 10, 2018, 10:53 AM [facility] Office Visit (ARMANI VOGEL) -- KRYSTIAN CHILD ([id number]) 1945 M [facility] Date Time Provider Department 07/13/18 10:00 AM [...] GRAFT(S) 07/01/2018 - COLONOSCOP W/ OR W/O [facility] SPEC Colonoscopy - COLONOSCOP W/ OR W/O [facility] SPEC 10/31/05 Repeat in - MOHS [...] 2V FRONTAL/LAT - CARDIAC REH[place]PT ([place]) 2. Wound cellulitis after surgery - ICD9: 998.59, ICD10: T81.49XA - Reddened, tender left leg - CEPHALEXIN 500 MG CAPSULE x 7 days Orlando Jacobs APRN.CNP In summary, Krystian Child is doing Fair overall after his MCABG surgery, with no major complaints. he should follow-up in this office in 3-4 weeks with Chest X-ray. Thanks. Electronically signed by Orlando Jacobs APRN.CNP on July 13, 2018, 10:21 AM Orlando Jacobs APRN.CNP 07/13/2018 10:48 AM Signed -Please follow-up with your primary care physician and your loan associate in 4-6 weeks -Please return to cardiac surgery in 3-4 weeks with a chest x-ray done before the appointment -Restriction remain: No lifting more than 10 lbs and No driving. -Cardiac rehab has been consulted. You will be able to begin cardiac rehab after your next visit with us. [facility] Cardiac Rehab . -Feel free to call us if you have questions or concerns Thank you for coming to see me today! 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] Other Visit Diagnosis:Wound cellulitis after surgery [T81.49XA] Order(s):cephALEXin (KEFLEX) 500 mg capsuleTake 1 capsule by mouth four times daily for 7 days.Disp: 28 capsuleRfl: 0 XR CHEST 2V FRONTAL/LAT [[id number]] Order #: [id number] FUTURE CARDIAC REHAB II OUTPT [place] [[id number]] Order #: [id number]: 1 Prescriptions as of 07/13/2018 Sig: FUROSEMIDE [...] with your primary care physician and your loan associate in 4-6 weeks -Please return to cardiac surgery in 3-4 weeks with a chest x-ray done before the appointment -Restriction remain: No lifting more than 10 lbs and No driving. -Cardiac rehab has been consulted. You will be able to begin cardiac rehab after your next visit with us. [facility] Cardiac Rehab . -Feel free to call us if you have questions or concerns Thank you for coming to see me today! Orlando Jacobs APRN.RESPIRATORY SUPERVISOR Prescriptions ordered this encounter Disp Refills Start End CEPHALEXIN 500 MG CAPSULE 28 c* 0 07/13/2018 07/20/2018 Route: ORAL Sig: Take 1 capsule by mouth four times daily for 7 days. Encounter Status:Closed by ORLANDO JACOBS CNP on 07/13/18 [facility] PROGRESSon 07-13-2018 Protein mass conc HNO ID: [id number] Author: Orlando Jacobs Service: (none) Author Type: [...] GRAFT(S) 07/01/2018 - COLONOSCOP W/ OR W/O [facility] SPEC Colonoscopy - COLONOSCOP W/ OR [...] 2V FRONTAL/LAT - CARDIAC RE[place] 2. Wound cellulitis after surgery - ICD9: 998.59, ICD10: T81.49XA - Reddened, tender left leg - CEPHALEXIN 500 MG CAPSULE x 7 days Orlando Jacobs APRN.REHAN In summary, Krystian Child is doing Fair overall after his MCABG surgery, with no major complaints. he should follow-up in this office in 3-4 weeks with Chest X-ray. Thanks. Electronically signed by Orlando Jacobs APRN.CNP on July 13, 2018, 10:21 AM [facility] CNPNon 07-08-2018 REHANN Telephone (RELL) -- CHEKOKRYSTIAN Painter ([id number]) 1945 M NFR Date Time Provider Department 07/08/18 ORLANDO JACOBS During your visit today, we recorded the following information about you: Orlando Jacobs APRN.CNP 07/08/2018 8:21 AM Signed Mrs Child called [...] Allergies) Date Reviewed: 07/05/2018 Reviewed by: Desi (Blanquita) BLANQUITA Mtz - Fully Assessed Reason for Visit: [...] Status:Closed by ORLANDO JACOBS CNP on 07/08/18 [facility] ALLIED HEALTHon 07-06-2018 ALLIED HEALTH HNO ID: [id number] Author: Cielo DrakeRn) BLANQUITA Bee Service: Home Care Services Author Type: Registered Nurse Type: Allied Health Filed: 07/06/2018 2:10 PM Note Text: CORRESPONDENCE RENEW CLERK NOTE SERVICE DATE: 07/06/2018 SERVICE TIME: 2:09 PM Discharge: Aware of Discharge home today. Physician order placed for Home Care Services. Home Care Agency: [facility] Start of care date: 07/07/18--07/08/18 Supplies ordered: N/A Patient/Family agree to discharge plan: Yes SIGNATURE: Cielo Bee RN PATIENT NAME: Krystian Child DATE: July 06, 2018 TIME: 2:09 PM [facility] CASE MANAGEMon 07-06-2018 CASE MANAGEM HNO ID: [id number] Author: Keisha (Rn) BLANQUITA Tamayo Service: Care Management Author Type: Registered Nurse Type: Care Mgt Progress Note Filed: 07/06/2018 11:20 AM Note Text: CARE MANAGEMENT DISCHARGE NOTE SERVICE DATE: 07/06/2018 SERVICE TIME: 11:19 AM LOS: 11 days Admission Date: 06/25/2018 DISCHARGE ARRANGEMENT (list agency and phone number) Home Home Care - Nursing and PT Provider: [facility] CAREGIVER ASSESSMENT: Caregiver is ready, willing and able to meet the patient's needs as recommended by the inter-professional team? Yes Patient's transition needs and plan for meeting these needs: home with family and [facility]- [facility] Does the patient have an acute stroke diagnosis, or has the patient had a stroke during this admission? No HANDOFF COMMUNICATION: [facility] notified of pts d/c and able to accept pt. TRANSPORTATION ARRANGEMENTS: Car Family ADDITIONAL CONTACT RESOURCES: SIGNATURE: Keisha Tamayo RN PATIENT NAME: Krystian Child DATE: July 06, 2018 TIME: 11:19 AM PAGER/CONTACT #: [phone] [facility] CHEST 2 VIEWSon 07-06-2018 CHEST 2 VIEWS Performed at [facility] APPROVED BY: Neri Matthews MD EXAMINATION: [...] overall improved aeration of the lungs. Normal [facility] PLAN OF CAREon 07-06-2018 PLAN OF CARE HNO ID: [id number] Author: Larissa Lopez (Inward Toll Operator) Service: (none) Author Type: (none) Type: Plan of Care Filed: 07/06/2018 1:33 PM Note Text: PHARMACY BEDSIDE DELIVERY SERVICE Patient Name: Krystian Child The marked outpatient medications were Filled at: [facility] and delivered to the patient's bedside to Patient and and daughter -- BLANQUITA Tellez notified Medication List START taking these [...] 75 mg tablet Generic drug: clopidogrel Larissa Nestoralma ([employer]) PAGER: Phone extension [phone] or call: July 06, 2018 1:32 PM [facility] PLAN OF CARE HNO ID: [id number] Author: Janiya Yoder ([employer]) Service: (none) Author Type: (none) Type: Plan of Care Filed: 07/06/2018 11:52 AM Note Text: VP ORGANIZATIONAL DEVELOPMENT BEDSIDE DELIVERY SURVEY 1. Patient to use [facility] Bedside Delivery - YES Insurance Information as follows: 2. Insurance card on file - YES 3. Credit card for payment - N/A . Please call [phone] upon discharge. We have prescriptions for Aspirin 81mg two daily Furosemide 40mg one daily Metoprolol tartrate 50mg one every 12 hours Atorvastatin 40mg one daily Senna 8.6mg 1 twice daily gavilax 1 capful daily Oxycodone 5 mg Total of $33.07 [facility] PLAN OF CARE HNO ID: [id number] Author: Ilana Odom (Pharmacist) Service: Pharmacy Author Type: Pharmacist Type: Plan of Care Filed: 07/06/2018 11:08 AM Note Text: Pharmacy Discharge Medication Service: This patient has elected to receive their discharge prescriptions through the [facility] Bedside Prescription Delivery program. The prescriptions are currently being processed. A follow-up note will be entered once the prescriptions have been filled and delivered to the patient. Please contact me with any questions or updates to the patient's discharge medications. ILANA ODOM PHARMACIST DCT Contact Info: [phone] [facility] PT EDon 07-06-2018 PT ED HNO ID: [id number] Author: Consuelo Li (Pharmacist) Service: Pharmacy Author [...] call to the physician. 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 CONSUELO LI PHARMACIST July 06, 2018 [...] These medications were sent to e- [facility] [place] [address] - [id number] [facility] [address] ? aspirin, enteric coated 81 mg EC [...] IR 5 mg immediate release tablet [facility] ALLIED HEALTHon 07-05-2018 ALLIED HEALTH HNO ID: [id number] Author: Jelani (Experimental Electronics Developer) GAVINO Arora Service: Cardiac Rehab Author Type: [...] Rehabilitation Brochure Signature: Jelani Arora RRT Pager: [phone] Date: July 05, 2018 Time: 10:51 AM [facility] CASE MANAGEMon 07-05-2018 CASE MANAGEM HNO ID: [id number] Author: Keisha Tamayo RN Service: Care Management [...] SIGNATURE: Keisha Tamayo RN PATIENT NAME: Krystian Addison Ptak DATE: July 05, 2018 TIME: 1:44 PM PAGER/CONTACT #: [phone] [facility] NUTRITIONon 07-05-2018 NUTRITION HNO ID: [id number] Author: Judit Rivas Service: Cardiac Rehab Author [...] Judit Rivas RD, LD PATIENT NAME: Krystian Addison Ptak DATE: July 05, 2018 TIME: 2:03 PM PAGER: [phone] [facility] PROCEDUREon 07-05-2018 Protein mass conc HNO ID: [id number] Author: Orlando Jacobs Service: Cardiac Surgery Author [...] None Specimens Sent: None SIGNATURE: Orlando Jacobs APRN.RESPIRATORY SUPERVISOR PATIENT NAME: Krystian Child DATE: July 05, 2018 TIME: 9:52 AM PAGER/CONTACT #: [phone] [facility] PROGRESSon 07-05-2018 Protein mass conc HNO ID: [id number] Author: Orlando Jacobs Service: Cardiac Surgery Author [...] cardiac catheterization 06/25/[address] Stubbs at [facility]. This is in the setting of TIA - like symptoms x2 episodes, (CT with evidence of lacunar infarct). He denies any thyroid disease, lung disease (ex-smoker quit 30+ years ago), DM, liver disease, abnormal bleeding or clotting. Interval events: Post operative recovery was unremarkable, he transferred to [facility] on POD2. On POD 3 he was noted to have paraphimosis which was reduced with out difficulty. Today, Mr Child reports his is doing quite well. Ambulating, [...] Intake/Output Summary (Last 24 hours) at 07/05/18 0852 Last data filed at 07/05/18 0745 Gross [...] at the caval atrial junction. ? Multiple environmental monitoring technician leads overlying over the left chest. ?This [...] Anticipated Post-Op Blood Loss Anemia -HANDH currently ? Thrombocytopenia -161 - resolved ? VTE PPX -SCD/ Lovenox ? GI PPX -Pantoprazole ? Diet -Heart healthy ? Dispo: Home with home health care 24 hours. Tests/Labs Ordered: 1. CXR SIGNATURE: Orlando Jacobs APRN.CNP PATIENT NAME: Krystian Child DATE: July 05, 2018 TIME: 8:52 AM PAGER/CONTACT #: [phone] ETX [id number] [facility] Basic Panelon 07-04-2018 Creatinine mass conc 0.99 mg/dL Normal 0.67-1.17 [facility] Comment on above: Performed By: #### G FR #### [facility] [address] [place], [place] [address] Anion gap molar conc 9 mmol/L Normal 8- [facility] Comment on above: Performed By: #### G FR #### [facility] [address] [place], [place] [address] CO2 molar conc 27 mmol/L Normal 21- [facility] Comment on above: Performed By: #### G FR #### [facility] [address] [place] [address] Urea nitrogen mass conc 28 mg/dL High 7-18 [facility] Comment on above: Performed By: #### G FR #### [facility] [address] [place], [place] [address] Calcium mass conc 7.9 mg/dL Low 8.5-10.1 [facility] Comment on above: Performed By: #### G FR #### [facility] [address] [place] [address] Glucose mass conc 115 mg/dL High 70-99 [facility] Comment on above: Performed By: #### G FR #### [facility] [address] [place] [address] Chloride molar conc 105 mmol/L Normal 98-107 [facility] Comment on above: Performed By: #### G FR #### [facility] [address] [place] [address] Potassium molar conc 3.8 mmol/L Normal 3.5-5.1 [facility] Comment on above: Performed By: #### G FR #### [facility] [address] [place] [address] Sodium molar conc 137 mmol/L Normal 136-145 [facility] Comment on above: Performed By: #### G FR #### [facility] [address] [place] [address] CHEST 1 VIEWon 07-04-2018 CHEST 1 VIEW Performed at [facility] APPROVED BY: Ousmane Avila MD EXAM TITLE: CHEST 1 VIEW DATE: 07/04/2018 06:39 INDICATION: Status post coronary artery bypass graft. COMPARISON: Several recent chest x-rays the most recent dated 07/03/2018. Portable frontal view of the chest shows right internal jugular central line with tip at the caval atrial junction. Multiple environmental monitoring technician leads overlying over the left chest. This [...] overlying chest monitor leads. Correlate clinically. Normal [facility] CONSULTon 07-04-2018 CONSULT HNO ID: [id number] Author: Gerson Matthews Service: Urology Author Type: [...] - APPENDECTOMY - COLONOSCOP W/ OR W/O [facility] SPEC Colonoscopy - COLONOSCOP W/ OR [...] 7.324 (L) 7.350 - 7.450 Final Specific [place], Ur Date Value Ref Range Status 06/26/2018 [...] Child DATE: 07/03/2018 TIME: 11:48 PM PAGER: [phone] I saw and evaluated the patient. Discussed with the resident and agree with resident's findings and plan as documented in the resident's note. Pt dong well this AM, comfortable and swelling resolved. Will sign off Gerson Matthews MD [facility] Hemogramon 07-04-2018 Erythrocyte distribution width Ratio (RBC) 13.4 % Normal 11.6-14.4 [facility] Comment on above: Performed By: #### G FR #### [place] [address] Hematocrit Volume Fraction (Bld) 30.5 % Low 40.1-51.0 [facility] Comment on above: Performed By: #### G FR #### [place] [address] Hemoglobin mass conc (Bld) 10.3 g/dL Low 13.7-17.5 [facility] Comment on above: Performed By: #### G FR #### [facility] [address] [place] [address] MCH Entitic mass (RBC) 32.0 pg Normal 25.7-32.2 [facility] Comment on above: Performed By: #### G FR #### [facility] [address] [place] [address] MCHC mass conc (RBC) 33.8 % Normal 32.3-36.5 [facility] Comment on above: Performed By: #### G FR #### [facility] [address] [place] [address] MCV Entitic volume (RBC) 94.7 fL Normal 83.2-95.6 [facility] Comment on above: Performed By: #### G FR #### [facility] [address] [place] [address] Platelet mean volume Entitic volume (Bld) 11.0 fL Normal 8.7-12.0 [facility] Comment on above: Performed By: #### G FR #### [facility] [address] [place] [address] Platelets #/vol (Bld) 161 thou/cmm Normal 141-365 [facility] Comment on above: Performed By: #### G FR #### [facility] [address] [place] [address] RBC #/vol (Bld) 3.22 mil/cmm Low 4.63-6.08 [facility] Comment on above: Performed By: #### G FR #### [facility] [address] [place] [address] RDW SD 46.0 fl High 36.1-45.8 [facility] Comment on above: Performed By: #### G FR #### [facility] [address] [place] [address] WBC #/vol (Bld) 8.69 thou/cmm Normal 4.23-9.07 [facility] Comment on above: Performed By: #### G FR #### [facility] [address] [place] [address] MDRD GFRon 07-04-2018 GFR/1.73 sq M predicted among non-blacks MDRD vol rate/area (S/P/Bld) mL/min/{1.73_m2} Normal >60mL/min/1 .73m2 [facility] Comment on above: Result Comment: If t he patient is , multiply the result by 1.210. Performed By: #### G FR #### [facility] [address] [place] [address] PROGRESSon 07-04-2018 Protein mass conc HNO ID: [id number] Author: Dani Miller Service: Thoracic Surgery Author Type: Physician Type: Progress Notes Filed: 07/04/2018 11:34 AM Note Text: For [place] POD #3 S-seen with PA. Patient just walked and now standing to void. Feels better O-labs noted, cxr as expected. A-Improving P-as ordered. Normal [facility] Basic Panelon 07-03-2018 Creatinine mass conc 1.14 mg/dL Normal 0.67-1.17 [facility] Comment on above: Performed By: #### G FR #### [facility] [address] [place] [address] Anion gap molar conc 10 mmol/L Normal 8-16 [facility] Comment on above: Performed By: #### G FR #### [facility] [address] [place] [address] CO2 molar conc 25 mmol/L Normal 21-32 [facility] Comment on above: Performed By: #### G FR #### [facility] [address] [place] [address] Glucose mass conc 134 mg/dL High 70-99 [facility] Comment on above: Performed By: #### G FR #### [facility] [address] [place] [address] Urea nitrogen mass conc 27 mg/dL High 7-18 [facility] Comment on above: Performed By: #### G FR #### [facility] [address] [place] [address] Calcium mass conc 8.1 mg/dL Low 8.5-10.1 [facility] Comment on above: Performed By: #### G FR #### [facility] [address] [place] [address] Chloride molar conc 108 mmol/L High 98-107 [facility] Comment on above: Performed By: #### G FR #### [facility] [address] [place] [address] Potassium molar conc 4.5 mmol/L Normal 3.5-5.1 [facility] Comment on above: Performed By: #### G FR #### [facility] [address] [place] [address] Sodium molar conc 138 mmol/L Normal 136-145 [facility] Comment on above: Performed By: #### G FR #### [facility] [address] [place] [id number] CHEST 1 VIEWon 07-03-2018 CHEST 1 VIEW Performed at [facility] APPROVED BY: Delvin Altamirano MD EXAM [...] bibasilar atelectasis left greater than right. Normal [facility] Glucose Meteron 07-03-2018 Glucose mass conc 135 mg/dL High 70-99 [facility] Comment on above: Result Comment: BLANQUITA N OTIFIED Performed By: #### P 14 #### [facility] [address] [place] [address] Hemogramon 07-03-2018 Erythrocyte distribution width Ratio (RBC) 14.0 % Normal 11.6-14.4 [facility] Comment on above: Performed By: #### L IPD2 #### [facility] [address] [place] [address] Hematocrit Volume Fraction (Bld) 32.4 % Low 40.1-51.0 [facility] Comment on above: Performed By: #### L IPD2 #### [address], [place] [address] Hemoglobin mass conc (Bld) 10.5 g/dL Low 13.7-17.5 [facility] Comment on above: Performed By: #### L IPD2 #### [facility] [address] [place] [address] MCH Entitic mass (RBC) 31.6 pg Normal 25.7-32.2 [facility] Comment on above: Performed By: #### L IPD2 #### [facility] [address] [place] [address] MCHC mass conc (RBC) 32.4 % Normal 32.3-36.5 [facility] Comment on above: Performed By: #### L IPD2 #### [facility] [address] [place] [address] MCV Entitic volume (RBC) 97.6 fL High 83.2-95.6 [facility] Comment on above: Performed By: #### L IPD2 #### [facility] [address] [place] [address] Platelet mean volume Entitic volume (Bld) 11.1 fL Normal 8.7-12.0 [facility] Comment on above: Performed By: #### L IPD2 #### [facility] [address] [place] [address] Platelets #/vol (Bld) 138 thou/cmm Low 141-365 [facility] Comment on above: Performed By: #### L IPD2 #### [facility] [address] [place] [address] RBC #/vol (Bld) 3.32 mil/cmm Low 4.63-6.08 [facility] Comment on above: Performed By: #### L IPD2 #### [facility] [address] [place] [address] RDW SD 49.6 fl High 36.1-45.8 [facility] Comment on above: Performed By: #### L IPD2 #### [place] [address] WBC #/vol (Bld) 10.71 thou/cmm High 4.23-9.07 [facility] Comment on above: Performed By: #### L IPD2 #### [facility] [address] [place] [address] Magnesium Bloodon 07-03-2018 Magnesium mass conc 2.8 mg/dL High 1.6-2.6 [facility] Comment on above: Performed By: #### G FR #### [facility] [address] [place] [id number] NURSING PROGon 07-03-2018 Protein mass conc HNO ID: [id number] Author: Paulina (Rn) BLANQUITA Mckeon Service: Nursing Author Type: Registered Nurse Type: Nursing Progress Note Filed: 07/03/2018 5:02 PM Note Text: Transferred to 4237 [facility] Protein mass conc HNO ID: [id number] Author: Paulina (Rn) BLANQUITA Mckeon Service: Nursing Author Type: Registered Nurse Type: Nursing Progress Note Filed: 07/03/2018 4:42 PM Note Text: Report called to 4200 RN [facility] Protein mass conc HNO ID: [id number] Author: Sivakumar (Rn) BLANQUITA [place] Service: (none) Author Type: Registered Nurse Type: Nursing Progress Note Filed: 07/03/2018 7:04 PM Note Text: BLANQUITA Shaver summoned to pt bedside to assist with retracted foreskin. Pt c/o pain with attempt to return foreskin to normal position; edema noted to glans/head of penis and unable to be returned. RN notified pt's primary RN Isabelle and summoned PA Julia to identify concern for paraphimosis. PA at bedside ~1400 to inspect; urology paged. Normal [facility] PROGRESSon 07-03-2018 Protein mass conc HNO ID: [id number] Author: Dani Miller Service: Cardiac Surgery Author [...] Diet -Heart healthy Dispo -Likely transfer to [facility] later today or tomorrow morning ? Planned in collaboration with Dr. Miller and CVICU team Tests/Labs Ordered: 1. Chest X-ray 2. BMP 3. CBC SIGNATURE: Julia Ackerman PA-C PATIENT NAME: Krystian Child DATE: July 03, 2018 TIME: 9:43 AM PAGER/CONTACT #:[phone] ETX [id number] [facility] Patient seen, labs, cxr, and data reviewed with Careplan reviewed and discussed. P-as ordered. Normal [facility] Basic Panelon 07-02-2018 Creatinine mass conc 1.02 mg/dL Normal 0.67-1.17 [facility] Comment on above: Performed By: #### L IPD2 #### [facility] [address] [place] [address] Anion gap molar conc 11 mmol/L Normal 8-16 [facility] Comment on above: Performed By: #### L IPD2 #### [facility] [address] [place], [place] [address] CO2 molar conc 22 mmol/L Normal 21-32 [facility] Comment on above: Performed By: #### L IPD2 #### [facility] [address] [place], [place] [address] Glucose mass conc 107 mg/dL High 70-99 [facility] Comment on above: Performed By: #### L IPD2 #### [facility] [address] [place], [place] [address] Urea nitrogen mass conc 21 mg/dL High 7-18 [facility] Comment on above: Performed By: #### L IPD2 #### [facility] [address] [place], [place] [address] Calcium mass conc 7.4 mg/dL Low 8.5-10.1 [facility] Comment on above: Performed By: #### L IPD2 #### [facility] [address] [place] [address] Chloride molar conc 115 mmol/L High 98-107 [facility] Comment on above: Performed By: #### L IPD2 #### [facility] [address] [place] [address] Potassium molar conc 4.4 mmol/L Normal 3.5-5.1 [facility] [place] Comment on above: Performed By: #### L IPD2 #### [facility] [address] [place] [address] Sodium molar conc 144 mmol/L Normal 136-145 [facility] Comment on above: Performed By: #### L IPD2 #### [facility] [address] [place] [address] CASE MANAGEMon 07-02-2018 CASE MANAGEM HNO ID: [id number] Author: Deedee (Rn) BLANQUITA Aviles Service: Care Management Author Type: Registered [...] 02, 2018 TIME: 2:15 PM PAGER/CONTACT #: [phone] Normal [facility] CHEST 1 VIEWon 07-02-2018 CHEST 1 VIEW Performed at [facility] APPROVED BY: Talha Oconnell MD EXAMINATION: [...] the CVICU on 07/02/2018 at 07:57. Normal [facility] CONSULT PROGon 07-02-2018 Protein mass conc HNO ID: [id number] Author: Raji Denis) Isabell Service: Critical Care [...] (07/01/181441) Peak Inspiratory Pressure (cm H2O): 15 (07/01/18 1442) PEEP/CPAP (cm H2O): 5 (07/01/18 1442) HEMODYNAMIC DATA: Reviewed NUTRITION: Enteral Feeds: Yes [...] July 02, 2018 TIME: 12:20 PM Normal [facility] ECG COMPLETEon 07-02-2018 ECG COMPLETE NAME : KRYSTIAN CHILD PID : [id number] : 1945 Gender : Male Race : ORD : [id number] Procedure Date : Jul 02 2018 05:31:14 Edit Date : Jul 02 2018 09:01:07 Diagnosis:SINUS RHYTHM WITH PREMATURE ATRIAL COMPLEXES IN A PATTERN OF BIGEMINY POSSIBLE INFERIOR INFARCT , AGE UNDETERMINED LATERAL INJURY PATTERN ACUTE TX / STEMI ABNORMAL ECG WHEN COMPARED WITH ECG OF 01-JUL-2018 13:14, BORDERLINE CRITERIA FOR INFERIOR INFARCT ARE NOW PRESENT ST ELEVATION NOW PRESENT IN LATERAL LEADS Confirmed by MD PRATER SERGEY ([id number]) on 07/02/2018 9:01:05 AM Ventricular Rate : 77 BPM Atrial Rate : 77 BPM P-R Interval : 162 ms QRS Duration : 102 ms Q-T Interval : 390 ms QTC Calculation(Bezet) : 441 ms P [place] : 15 degrees R [place] : 7 degrees T [place] : 4 degrees Test Reason : Post-OP Location : 6 : [facility] 323 Overread By : MD PRATER SERGEY Edited By : MD PRATER SERGEY Referred By : CHIN STUBBS Acquired by : YAMILE ADDISON [facility] Hemogramon 07-02-2018 Erythrocyte distribution width Ratio (RBC) 13.4 % Normal 11.6-14.4 [facility] Comment on above: Performed By: #### L IPD2 #### [place] [address] Hematocrit Volume Fraction (Bld) 35.9 % Low 40.1-51.0 [facility] Comment on above: Performed By: #### L IPD2 #### [place] [address] Hemoglobin mass conc (Bld) 12.0 g/dL Low 13.7-17.5 [facility] Comment on above: Performed By: #### L IPD2 #### [place] [address] MCH Entitic mass (RBC) 31.8 pg Normal 25.7-32.2 [facility] Comment on above: Performed By: #### L IPD2 #### [facility] [address] [place] [address] MCHC mass conc (RBC) 33.4 % Normal 32.3-36.5 [facility] [place] Comment on above: Performed By: #### L IPD2 #### [place] [address] MCV Entitic volume (RBC) 95.2 fL Normal 83.2-95.6 [facility] Comment on above: Performed By: #### L IPD2 #### [facility] [address] [place] [address] Platelet mean volume Entitic volume (Bld) 11.5 fL Normal 8.7-12.0 [facility] Comment on above: Performed By: #### L IPD2 #### [facility] [address] [place] [address] Platelets #/vol (Bld) 180 thou/cmm Normal 141-365 [facility] Comment on above: Performed By: #### L IPD2 #### [facility] [address] [place] [address] RBC #/vol (Bld) 3.77 mil/cmm Low 4.63-6.08 [facility] Comment on above: Performed By: #### L IPD2 #### [place] [address] RDW SD 46.8 fl High 36.1-45.8 [facility] Comment on above: Performed By: #### L IPD2 #### [facility] [address] [place] [address] WBC #/vol (Bld) 12.65 thou/cmm High 4.23-9.07 [facility] Comment on above: Performed By: #### L IPD2 #### [place] [address] Magnesium Bloodon 07-02-2018 Magnesium mass conc 2.1 mg/dL Normal 1.6-2.6 [facility] Comment on above: Performed By: #### L IPD2 #### [place] [address] NUTRITIONon 07-02-2018 NUTRITION HNO ID: [id number] Author: Marina Dennis RD Service: Nutrition Therapy Author Type: Registered Dietitian [...] - APPENDECTOMY - COLONOSCOP W/ OR W/O [facility] SPEC Colonoscopy - COLONOSCOP W/ OR [...] lb) 08/13/05 : 106.6 kg (235 lb) [place] Body Weight: 75.5kg Dosing Weight: 105.8 kg Resting Metabolic Rate: 1809 Estimated kilocalorie needs: 1885-6497 kilocalories determined by 25-30 kcal/kg Estimated protein needs: 91-113 grams determined by 1.2-1.5 g/kg Dosing weight Estimated fluid needs: 0278-0666 milliliters based on 1 mL per kcal [...] mL (EMMA-SYNEPHRINE) 0-100 mcg/min INTRAVENOUS CONTINUOUS Date 07/01/18699 - 07/02/1865807/02/18699 - 07/03/18 0659 Shift 8017-4431 8963-3557 5224-7507 24 Hour Total 7558-1961 7108-5191 3516-4034 24 Hour Total I N T A [...] U T P U T Urine 176 807 397 3008 24 24 Output ( Indwelling Urinary Catheter 07/01/18 0740 Temperature Monitoring 16 Fr) 176 538 354 6242 24 24 Chest Tube 110 110 200 420 80 80 Chest Tube Output (Chest Tube 07/01/18 0913 Left Pleural 28 Fr Tube #1) 110 110 200 420 80 80 Shift Total 286 219 707 3290 104 104 Weight (kg) 98.9 98.9 105.8 [...] July 02, 2018 TIME: 9:48 AM PAGER: [phone] Normal [facility] PROGRESSon 07-02-2018 Protein mass conc HNO ID: [id number] Author: Mike Allan (Pa) Service: Cardiovascular Surgery Author Type: Physician Drop Worker Type: Progress Notes Filed: 07/02/2018 11:17 AM [...] Portable AP film. Under-penetrated with patient rotated INDONESIAN and lordotic. s/p ET tube removal. RIJ [...] suction -Maintain central line -Bowel regimen starting / -Cardiac rehab Anticipated post operative respiratory insufficiency [...] 02, 2018 TIME: 10:22 AM PAGER/CONTACT #: [phone] Normal [facility] THERAPY NTon 07-02-2018 THERAPY NT HNO ID: [id number] Author: Christina (Pt) Kostas PT Service: Physical Therapy Author Type: Physical Therapist Type: Therapy (PT/OT/Speech/Resp) Filed: 07/02/2018 3:37 PM Note Text: Physical Therapy Evaluation SERVICE DATE: 07/02/2018 SERVICE TIME: 1421 to 1445 ROOM: [place] [address] Recommended Discharge Disposition: Home PT Recommended Discharge [...] gait and mobility-other Interventions Provided: Evaluation;Gait Training (04015) $ Evaluation-Moderate (25247) Billed Units: 1 unit Gait Training (55371) Treatment Minutes: 8 1 unit Skilled Intervention(s): [...] CODE: PT 6 Clicks Score: 18 (07/02/18 1077) Based on clinical assessment and the score [...] Standing Dynamic Standing Balance: Contact Guard Assistance -HLM: 7: Walk 25 feet or more Please see discipline specific clinical documentation flowsheet for complete details for this therapy evaluation/treatment. SIGNATURE: Christina Kenyon PT PATIENT NAME: Krystian Child DATE: July 02, 2018 TIME: 3:33 PM [facility] THERAPY NT HNO ID: [id number] Author: Mona DrakeOtr/Dasrhan Saavedra Service: Occupational Therapy Author Type: Occupational Therapist Type: Therapy (PT/OT/Speech/Resp) Filed: 07/02/2018 2:27 PM Note Text: Occupational Therapy Evaluation SERVICE DATE: 07/02/2018 SERVICE TIME: 1120 to 1148 ROOM: [place] [address] Recommended Discharge Disposition: Home Anticipated Discharge Needs: [...] Functions and Awareness Interventions Provided: Therapeutic Activity (41615);Evaluation $ Evaluation-Moderate (02061) Billed Units: 1 unit OT Evaluation Moderate [...] dyspnea, and mitral valve disorders. Therapeutic Activity (69731) Treatment Minutes: 13 1 unit Skilled Intervention(s): [...] - APPENDECTOMY - COLONOSCOP W/ OR W/O [facility] SPEC Colonoscopy - COLONOSCOP W/ OR W/O [facility] SPEC 10/31/05 Repeat in - MOHS [...] documentation corresponding to this therapy visit. SIGNATURE: MARLA Ramos/Jay DATE: July 02, 2018 TIME: 2:27 PM Evaluation and/or treatment directly supervised by licensed Occupational Therapist. Normal [facility] ACT Arterial Panel (i-STAT)o n 07-01-2018 Kaolin ACT ( i-STAT) 125 sec Normal 74-137 [facility] [place] Comment on above: Performed By: #### P 14 #### [place] [address] ANES Constantin 07-01-2018 ANES POST HNO ID: [id number] Author: Ousmane Magaña MD Service: Anesthesiology Author [...] 1638 07/01/18 1700 07/01/18 1800 07/01/18 1900 Arterial BP 1: 106/47 103/46 106/48 102/46 BP: 07/01/18 1638 07/01/18 1700 07/01/18 1800 07/01/18 1900 Pulse: 82 84 87 83 07/01/18 1638 [...] 01, 2018 TIME: 8:25 PM PAGER/CONTACT #: [phone] [facility] ANES PREOPon 07-01-2018 ANES PREOP HNO ID: [id number] Author: Jamal Bauer Service: Anesthesiology Author Type: [...] irrigation 3,000 Units IRRIGATION ONCE Oscar A rra [MAR Hold due to Transfer] PHENYLephrine 20 mg in NaCl 0.9% 250 mL (NEOSYNEPHRINE) 25-300 mcg/min INTRAVENOUS ONCE Oscar A a [MAR Hold due to Transfer] aminocaproic acid 10 g in NaCl 0.9% 250 mL (AMicAR) 1 g/hr INTRAVENOUS ONCE Oscar A a [MAR Hold due to Transfer] dexmedetomidine 400 mcg in NaCl 0.9% 100 mL (PRECEDEX) 0.2-0.7 mcg/kg/hr INTRAVENOUS ONCE Oscar A a [MAR Hold due to Transfer] EPINEPHrine 4 mg in NaCl 0.9% 250 mL 0.5-10 mcg/min INTRAVENOUS ONCE Oscar A a [MAR Hold due to Transfer] insulin regular iv infusion 100 units in NaCl 0.9% 100 mL - AK CARD SURG NOMOGRAM 0-12 Units/hr INTRAVENOUS ONCE Oscar A a [MAR Hold due to Transfer] nitroglycerin 100 mg in D5W 250 mL 5-20 mcg/min INTRAVENOUS ONCE Oscar A a [MAR Hold due to Transfer] NORepinephrine 16 mg in NaCl 0.9% 250 mL (LEVOPHED) 0-20 mcg/min INTRAVENOUS ONCE Oscar A a [MAR Hold due to Transfer] PHENYLephrine iv infusion 10 mg in NaCl 0.9% 250 mL (EMMA-SYNEPHRINE) 0-100 mcg/min INTRAVENOUS ONCE Oscar A a [MAR Hold due to Transfer] dextrose 50 g, insulin regular human 10 Units, potassium chloride 80 mEq, lidocaine (PF) 20 mg/mL (2 %) 100 mg, magnesium sulfate 4 g in electrolyte-a (PLASMA-LYTE A) 1,000 mL solution MISCELLANEOUS ONCE Oscar A [MAR Hold due to Transfer] dextrose 25 g, insulin regular human 5 Units, potassium chloride 20 mEq, lidocaine (PF) 20 mg/mL (2 %) 50 mg, magnesium sulfate 2 g in electrolyte-a (PLASMA-LYTE A) 500 mL solution MISCELLANEOUS ONCE Oscar Villanueva [JUL Hold due to Transfer] NaCl 0.9% [...] mg ORAL q 6 H PRN Braeden ungwu [JUL Hold due to Transfer] docusate sodium 100 mg cap(s) (COLACE) 100 mg ORAL BID PRN Braeden ungw [JUL Hold due to Transfer] atorvastatin 80 mg tab(s) (LIPITOR) 80 mg ORAL AT BEDTIME Braeden Ofungwu 80 mg at 06/30/182141 [JUL Hold due to Transfer] metoprolol tartrate (short acting) 25 mg tab(s) (LOPRESSOR) 25 mg ORAL q 12 H Braeden Ofungwu 25 mg at 07/01/18 0530 [MAR Hold due to Transfer] enoxaparin 40 mg injection (LOVENOX) 40 mg SUBCUTANEOUS q 24 H Braeden ungwu 40 mg at 06/30/18 0923 [JUL Hold [...] - Distal L main disease, LAD, and 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 - Exam indication: Acute chest pain with suspected TX - The left ventricle is normal in [...] prior CC echocardiographic exam for comparison [facility] Activated PTTon 07-01-2018 aPTT Coag time (Bld) 30.6 s Normal 23.0-32.4 [facility] [place] Comment on above: Result Comment: Note : [...] laboratory APTT reagent in use throughout the [facility]. Performed By: #### L IPD2 #### [place] [address] BRIEF OP NOTon 07-01-2018 BRIEF OP NOT HNO ID: [id number] Author: Oscar Villanueva Service: Cardiac Surgery Author Type: Physician Type: Brief Op Note Filed: 07/01/2018 1:07 PM Note Text: CARDIOTHORACIC BRIEF OP NOTE LOG ID: [id number] SURGERY/PROCEDURE DATE: 07/01/2018 INCISION/PROCEDURE START TIME: 8:27 AM INCISION CLOSE/PROCEDURE END TIME: 12:56 PM SURGEON(S) AND RIPRAP MAN(S): Surgeon(s) and Role: * Oscar Villanueva - Primary Physician Drop Worker: Anant Ureña (Pa) Online Trader: Julia () SA Doris; Joe () SA Alie Online Trader (Relief): Zofia Crawford) SA Dakota PROCEDURES AND ANESTHESIA: Procedure(s) and [...] TIME: 1:06 PM PAGER/CONTACT #: [phone] [facility] Basic Panelon 07-01-2018 Creatinine mass conc 1.15 mg/dL Normal 0.67-1.17 [facility] [place] Comment on above: Performed By: #### L IPD2 #### [facility] [address] [place] [address] Anion gap molar conc 12 mmol/L Normal 8-16 [facility] [place] Comment on above: Performed By: #### L IPD2 #### [facility] [address] [place] [address] CO2 molar conc 22 mmol/L Normal 21-32 [facility] Comment on above: Performed By: #### L IPD2 #### [facility] [address] [place] [address] Glucose mass conc 120 mg/dL High 70-99 [facility] Comment on above: Performed By: #### L IPD2 #### [facility] [address] [place] [address] Urea nitrogen mass conc 19 mg/dL High 7-18 [facility] Comment on above: Performed By: #### L IPD2 #### [facility] [address] [place] [address] Calcium mass conc 8.8 mg/dL Normal 8.5-10.1 [facility] Comment on above: Performed By: #### L IPD2 #### [facility] [address] [place] [address] Chloride molar conc 111 mmol/L High 98-107 [facility] Comment on above: Performed By: #### L IPD2 #### [facility] [address] [place] [address] Potassium molar conc 4.1 mmol/L Normal 3.5-5.1 [facility] [place] Comment on above: Performed By: #### L IPD2 #### [facility] [address] [place] [address] Sodium molar conc 141 mmol/L Normal 136-145 [facility] Comment on above: Performed By: #### L IPD2 #### [place] [address] Blood Gas Arterialon 019 FIO2 100 % Normal [facility] Comment on above: Performed By: #### P 14 #### [facility] [address] [place] [address] Base Excess -4.4 mEq/L Normal -2.5 to 2.5 [facility] Comment on above: Performed By: #### P 14 #### [facility] [address] [place] [address] HCO3 molar conc (Bld) 21.4 mmol/L Low 22.0-26.0 [facility] Comment on above: Performed By: #### P 14 #### [facility] [address] [place] [address] O2% Sat Arterial 98.4 % High 95.0-98.0 [facility] Comment on above: Performed By: #### P 14 #### [facility] [address] [place] [address] PCO2 Arterial 42.1 mm Hg Normal 36.0-46.0 [facility] Comment on above: Performed By: #### P 14 #### [facility] [address] [place] [address] pH Arterial 7.324 Low 7.350-7.450 [facility] Comment on above: Performed By: #### P 14 #### [facility] [address] [place] [address] PO2 Arterial 136.5 mm Hg High 85.0-96.0 [facility] Comment on above: Performed By: #### P 14 #### [facility] [address] [place] [address] CG8 Arterial Panel (i-STAT)o n 07-01-2018 Base Excess (i-STAT) -1.0 mmol/L Normal -2.0 to 3.0 [facility] Comment on above: Performed By: #### P 14 #### [facility] [address] [place] [address] Glucose mass conc 155 mg/dL High 70-99 [facility] Comment on above: Performed By: #### P 14 #### [facility] [address] [place] [address] HCO3 molar conc (Bld) 24.3 mmol/L Normal 22.0-26.0 [facility] Comment on above: Performed By: #### P 14 #### [facility] [address] [place] [address] Hematocrit Volume Fraction (Bld) 26 %PCV Low 38-51 [facility] Comment on above: Performed By: #### P 14 #### [facility] [address] [place] [address] Hemoglobin mass conc (Bld) 8.8 g/dL Low 12.0-17.0 [facility] Comment on above: Performed By: #### P 14 #### [facility] [address] [place] [address] Ionized Calcium (iSTAT) 5.9 mg/dL High 4.5-5.3 [facility] Comment on above: Performed By: #### P 14 #### [facility] [address] [place] [address] O2% Sat. (i-STAT) 100.0 % High 95.0-98.0 [facility] Comment on above: Performed By: #### P 14 #### [facility] [address] [place] [address] Oxygen ppres (Bld) 281.0 mm Hg High 80.0-105.0 [facility] Comment on above: Performed By: #### P 14 #### [facility] [address] [place] [address] PCO2 (i-STAT) 44.1 mm Hg Normal 35.0-45.0 [facility] Comment on above: Performed By: #### P 14 #### [facility] [address] [place] [address] pH (Bld) 7.349 [pH] Low 7.350-7.450 [facility] Comment on above: Performed By: #### P 14 #### [facility] [address] [place] [address] Potassium molar conc 4.2 mmol/L Normal 3.5-4.9 [facility] [place] Comment on above: Performed By: #### P 14 #### [facility] [address] [place], [place] [address] Sodium molar conc 140 mmol/L Normal 138-146 [facility] Comment on above: Performed By: #### P 14 #### [facility] [address] [place] [address] Total CO2 (i-STAT) 26 mmol/L Normal 23-27 [facility] Comment on above: Performed By: #### P 14 #### [facility] [address] [place] [address] CG8 Venous Panel (i-STAT)on 07-01-2018 Base Excess (i-STAT) -3.0 mmol/L Normal -2.0 to 3.0 [facility] Comment on above: Performed By: #### P 14 #### [facility] [address] [place] [address] Glucose mass conc 165 mg/dL High 70-99 [facility] Comment on above: Performed By: #### P 14 #### [facility] [address] [place] [address] HCO3 molar conc (Bld) 22.8 mmol/L Low 23.0-28.0 [facility] Comment on above: Performed By: #### P 14 #### [facility] [address] [place] [address] Hematocrit Volume Fraction (Bld) 28 %PCV Low 38-51 [facility] Comment on above: Performed By: #### P 14 #### [facility] [address] [place] [address] Hemoglobin mass conc (Bld) 9.5 g/dL Low 12.0-17.0 [facility] Comment on above: Performed By: #### P 14 #### [facility] [address] [place] [address] Ionized Calcium (iSTAT) 4.2 mg/dL Low 4.5-5.3 [facility] Comment on above: Performed By: #### P 14 #### [facility] [address] [place] [address] O2% Sat. (i-STAT) 79.0 % Normal 35.0-85.0 [facility] Comment on above: Performed By: #### P 14 #### [facility] [address] [place] [address] Oxygen ppres (Bld) 47.0 mm Hg Normal 20.0-50.0 [facility] Comment on above: Performed By: #### P 14 #### [facility] [address] [place] [address] PCO2 (i-STAT) 45.3 mm Hg Normal 41.0-51.0 [facility] Comment on above: Performed By: #### P 14 #### [facility] [address] [place] [address] pH (Bld) 7.311 [pH] Normal 7.310-7.410 [facility] Comment on above: Performed By: #### P 14 #### [facility] [address] [place] [address] Potassium molar conc 5.3 mmol/L High 3.5-4.9 [facility] [place] Comment on above: Performed By: #### P 14 #### [facility] [address] [place] [address] Sodium molar conc 137 mmol/L Low 138-146 [facility] Comment on above: Performed By: #### P 14 #### [facility] [address] [place] [address] Total CO2 (i-STAT) 24 mmol/L Normal 24-29 [facility] Comment on above: Performed By: #### P 14 #### [facility] [address] [place] [address] CHEST 1 VIEWon 07-01-2018 CHEST 1 VIEW Performed at [facility] APPROVED BY: REBEKAH SALGADO MD X-RAY [...] be advanced. No acute radiographic abnormality. Normal [facility] CONSULTon 07-01-2018 CONSULT HNO ID: [id number] Author: Raji Denis) Isabell Service: Critical Care [...] Score: Pt. Sleeping (Do Not Use With GAS ADJUSTER Meds) Vital signs reviewed. BP 147/71 Pulse [...] Pressure Support Ventilation;Synchronized Intermittent Mandatory Ventilation (07/01/18 1306) Set Ventilator Respiratory Rate (BPM): 12 (07/01/18 1306) Total Respiratory Rate (BPM): 13 (07/01/18 1306) Tidal Volume Set (mL): 550 (07/01/18 1306) Exhaled Tidal Volume (mL): 582 (07/01/18 1306) Minute Volume (L): 6.02 (07/01/18 1306) Peak Inspiratory Pressure (cm H2O): 17 (07/01/18 1306) PEEP/CPAP (cm H2O): 5 (07/01/18 1306) HEMODYNAMIC DATA: Reviewed NUTRITION: Enteral Feeds: No [...] July 01, 2018 TIME: 2:14 PM Normal [facility] ECG COMPLETEon 07-01-2018 ECG COMPLETE NAME : KRYSTIAN CHILD PID : [id number] : 1945 Gender : Male Race : ORD : [id number] Procedure Date : Jul 01 2018 13:14:39 Edit Date : Jul 02 2018 08:58:11 Diagnosis:SINUS RHYTHM WITH PREMATURE ATRIAL COMPLEXES OTHERWISE NORMAL ECG NO PREVIOUS ECGS AVAILABLE Confirmed by MD PRATER SERGEY ([id number]) on 07/02/2018 8:58:01 AM Ventricular Rate : 73 BPM Atrial Rate : 73 BPM P-R Interval : 184 ms QRS Duration : 102 ms Q-T Interval : 428 ms QTC Calculation(Bezet) : 471 ms P [place] : 54 degrees R [place] : 49 degrees T [place] : 23 degrees Test Reason : Post-OP Location : 6 : [place] [address] Overread By : MD PRATER SERGEY Edited By : MD PRATER SERGEY Referred By : CHIN STUBBS Acquired by : , Porfirio [facility] Hemogramon 07-01-2018 Erythrocyte distribution width Ratio (RBC) 13.1 % Normal 11.6-14.4 [facility] Comment on above: Performed By: #### P 14 #### [place] [address] Hematocrit Volume Fraction (Bld) 33.7 % Low 40.1-51.0 [facility] Comment on above: Performed By: #### P 14 #### [place] [address] Hemoglobin mass conc (Bld) 11.5 g/dL Low 13.7-17.5 [facility] Comment on above: Performed By: #### P 14 #### [place] [address] MCH Entitic mass (RBC) 32.1 pg Normal 25.7-32.2 [facility] Comment on above: Performed By: #### P 14 #### [place] [address] MCHC mass conc (RBC) 34.1 % Normal 32.3-36.5 [facility] [place] Comment on above: Performed By: #### P 14 #### [place] [address] MCV Entitic volume (RBC) 94.1 fL Normal 83.2-95.6 [facility] Comment on above: Performed By: #### P 14 #### [facility] [address] [place] [address] Platelet mean volume Entitic volume (Bld) 11.1 fL Normal 8.7-12.0 [facility] Comment on above: Performed By: #### P 14 #### [facility] [address] [place] [address] Platelets #/vol (Bld) 129 thou/cmm Low 141-365 [facility] Comment on above: Performed By: #### P 14 #### [facility] [address] [place] [address] RBC #/vol (Bld) 3.58 mil/cmm Low 4.63-6.08 [facility] Comment on above: Performed By: #### P 14 #### [place] [address] RDW SD 44.6 fl Normal 36.1-45.8 [facility] Comment on above: Performed By: #### P 14 #### [facility] [address] [place] [address] WBC #/vol (Bld) 14.01 thou/cmm High 4.23-9.07 [facility] Comment on above: Performed By: #### P 14 #### [place] [address] Magnesium Bloodon 07-01-2018 Magnesium mass conc 2.8 mg/dL High 1.6-2.6 [facility] Comment on above: Performed By: #### L IPD2 #### [place] [address] OPERATIVE NOon 07-01-2018 OPERATIVE NO HNO ID: [id number] Author: Oscar Villanueva Service: Cardiac Surgery Author Type: Physician Type: Operative Report Filed: 07/02/2018 8:25 AM Note Text: [facility] - Operative Report KRYSTIAN CHILD : 1945 AGE: 72. SEX: M PATIENT TYPE: I HOSP SVC: [facility] LOCATION: [id number] ATTENDING PHYSICIAN: OSCAR VILLANUEVA CSN NUMBER: [id number] DATE OF SURGERY/PROCEDURE: 07/01/2018 INCISION/PROCEDURE START TIME: 8:27 AM INCISION CLOSE/PROCEDURE END TIME: 12:56 PM PREOPERATIVE DIAGNOSIS: Multi-vessel coronary disease, anginal symptoms. POSTOPERATIVE DIAGNOSIS: Multi-vessel coronary disease, anginal symptoms. SURGEON: Oscar Villanueva MD RIPRAP MAN: 1. Ms. Duncan. 2. Ms. George. 3. [...] an occluded right coronary was filled via [id number] collaterals. Left ventricular function was well preserved. [...] in layers with absorbable suture. The sternal turning sander operator was placed in the wound. A pericardial [...] CVICU in good condition after a sign-out. Oscar Villanueva MD JAL:[id number] /[id number] [facility] PROGRESSon 07-01-2018 Protein mass conc HNO ID: [id number] Author: Mike Allan (Pa) Service: Cardiovascular Surgery Author Type: Physician Drop Worker Type: Progress Notes Filed: 07/01/2018 2:33 PM [...] 01, 2018 TIME: 2:32 PM PAGER/CONTACT #: [phone] ETX#[id number] [facility] Protimeon 07-01-2018 INR Coag RelTime (PPP) 1.14 {INR} Normal 0.90-1.30 [facility] Comment on above: Result Comment: Note : Reference Range Change Vitamin K Antagonist (VKA) Therapeutic Range: INR 2 to 3 (Target INR of 2.5) Note: For patients treated with VKA drugs, such as warfarin, the [employer] [place] [employer] 2012 Guideline recommends [...] Chest 2012; 141:7S-47S Chepe RA et al. JACC 2017; 70: 252-289 Performed By: #### L IPD2 #### [place] [address] Prothrombin time (PT) Coag time (PPP) 11.7 s Normal 9.7-13.0 [facility] Comment on above: Performed By: #### L IPD2 #### [facility] [address] [place] [address] RBC Productson 07-01-2018 Xmatch Unit 1 see below Normal [facility] Comment on above: Result Comment: Comp atible Performed By: #### P 14 #### [place] [address] Xmatch Unit 2 see below Normal [facility] Comment on above: Result Comment: Comp atible Performed By: #### P 14 #### [facility] [address] [place] [address] CASE MANAGEMon 06-30-2018 CASE MANAGEM HNO ID: [id number] Author: Keisha DrakeRn) BLANQUITA Tamayo Service: Care Management Author Type: Registered [...] 30, 2018 TIME: 10:35 AM PAGER/CONTACT #: [phone] [facility] PLAN OF CAREon 06-30-2018 PLAN OF CARE HNO ID: [id number] Author: Zechariah Pedroza APRN.REHAN Service: Cardiovascular Surgery Author Type: Nurse Practitioner [...] no questions at this point. Zechariah Pedroza APRN.REHAN [facility] PROGRESSon 06-30-2018 Protein mass conc HNO ID: [id number] Author: Wallace Barrientos Service: Hospital Medicine Author [...] June 30, 2018 TIME: 4:40 PM PAGER: Normal [facility] PROGRESSon 06-29-2018 Protein mass conc HNO ID: [id number] Author: Braeden August Service: Hospital Medicine Author Type: Physician Type: Progress Notes Filed: 06/29/2018 9:35 AM Note Text: DEPARTMENT OF HOSPITAL MEDICINE PROGRESS NOTE SERVICE DATE: 06/29/2018 SERVICE TIME: 9:32 AM Hospital Medicine/Primary Attending: Braeden August MD NIGHT AND WEEKEND COVERAGE: Please page [phone] from 7 PM to 7 AM Subjective [...] 1645 vte non-pharmacologic prophylaxis - none indicated (mo,oh) VTE Prophylaxis: VTE prophylaxis appropriate Disposition: Home Plan of care discussed with: Patient SIGNATURE: Braeden August MD PATIENT NAME: Krystian Child DATE: June 29, 2018 TIME: 9:32 AM PAGER/CONTACT #: [phone] [facility] Type and Screenon 06-29-2018 ABO group Nom (Bld) O Normal [facility] Comment on above: Performed By: #### P 14 #### [place] [address] Comment See Below [facility] Comment on above: Result Comment: Scre en &/or Xmatch expires in 3 days at 12 midnight. Redraw patient at that time. Performed By: #### P 14 #### [facility] [address] [place], [place] [address] RH Type Negative Normal [facility] Comment on above: Performed By: #### P 14 #### [facility] [address] [place], [place] [address] CASE MGT INIT DAISYon 2018 CASE MGT INIT DAISY HNO ID: [id number] Author: Keisha DrakeRn) BLANQUITA Tamayo Service: Care Management Author Type: Registered Nurse Type: Care Mgt Initial Assessment Filed: 06/28/2018 4:03 PM Note Text: CARE MANAGEMENT: ASSESSMENT AND DISCHARGE PLAN SERVICE DATE: 06/28/2018 SERVICE TIME: 4:01 PM PRIMARY CARE PHYSICIAN: Ligia Mcrae DO ADMISSION STATUS: Inpatient Needs Prior to Discharge: Home Care 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 No SOCIAL: Living Arrangement: Home Lives With: Spouse Financial Resources: Retired Primary Contact: Extended Emergency Contact Information Primary Emergency Contact: Bozena Child [facility] [address] [place] [place] [address] Relation: Spouse Supportive: Yes Other Important Patient [...] 0 I feel financially burdened by my iju-nb-uhnuuw expenses for my prescription medication: Disagree mostly [...] FREEDOM OF CHOICE EXPLAINED: Preference: [facility] or [place] home care POTENTIAL TRANSITION PLANS Home Home [...] 28, 2018 TIME: 4:01 PM PAGER/CONTACT #: [phone] [facility] CDVI B MODEon 06-28-2018 CDVI B MODE Performed at [facility] APPROVED BY: ELISEO HUFFMAN MD EXAM [...] the cervical level carotid system bilaterally. Normal [facility] PROGRESSon 06-28-2018 Protein mass conc HNO ID: [id number] Author: Braeden August Service: Hospital Medicine Author Type: Physician Type: Progress Notes Filed: 06/28/2018 8:39 AM Note Text: DEPARTMENT OF HOSPITAL MEDICINE PROGRESS NOTE SERVICE DATE: 06/28/2018 SERVICE TIME: 8:31 AM Hospital Medicine/Primary Attending: Braeden August MD NIGHT AND WEEKEND COVERAGE: Please page [phone] from 7 PM to 7 AM Subjective [...] 1645 vte non-pharmacologic prophylaxis - none indicated (mo,pr) VTE Prophylaxis: VTE prophylaxis appropriate Disposition: Home Plan of care discussed with: Patient SIGNATURE: Braeden August MD PATIENT NAME: Krystian Child DATE: June 28, 2018 TIME: 8:31 AM PAGER/CONTACT #: [phone] [phone] [facility] PROGRESSon 06-27-2018 Protein mass conc HNO ID: [id number] Author: Braeden August Service: Hospital Medicine Author Type: Physician Type: Progress Notes Filed: 06/27/2018 9:57 AM Note Text: DEPARTMENT OF HOSPITAL MEDICINE PROGRESS NOTE SERVICE DATE: 06/27/2018 SERVICE TIME: 9:47 AM Hospital Medicine/Primary Attending: Braeden August MD NIGHT AND WEEKEND COVERAGE: Please Page [phone] from 7 PM to 7 AM Subjective [...] 1645 vte non-pharmacologic prophylaxis - none indicated (mo,oh) VTE Prophylaxis: VTE prophylaxis appropriate Disposition: Home Plan of care discussed with: Patient SIGNATURE: Braeden August MD PATIENT NAME: Krystian Child DATE: June 27, 2018 TIME: 9:47 AM PAGER/CONTACT #: [phone] Normal [facility] Protimeon 06-27-2018 INR Coag RelTime (PPP) 1.06 {INR} Normal 0.90-1.30 [facility] Comment on above: Result Comment: Note : Reference Range Change Vitamin K Antagonist (VKA) Therapeutic Range: INR 2 to 3 (Target INR of 2.5) Note: For patients treated with VKA drugs, such as warfarin, the [employer] [place] [employer] 2012 Guideline recommends [...] to 3.5 target INR of 3). Kem THOMAS, et al. Chest 2012; 141:7S-47S Chepe MCKEON et al. JACC 2017; 70: 252-289 Performed By: #### P 14 #### [facility] [address] [place] [address] Prothrombin time (PT) Coag time (PPP) 11.0 s Normal 9.7-13.0 [facility] Comment on above: Performed By: #### P 14 #### [facility] [address] [place] [address] CHEST 2 VIEWSon 06-26-2018 CHEST 2 VIEWS Performed at [facility] APPROVED BY: Neri Matthews MD EXAMINATION: [...] identified. IMPRESSION: No acute radiographic abnormality. Normal [facility] CONSULTon 06-26-2018 CONSULT HNO ID: [id number] Author: Oscar Villanueva Service: Cardiac Surgery Author [...] cardiac catheterization 06/25/[address] Stubbs at [facility]. He reports he was in [place] a [...] the perioperative course: - CAD of the quechan vessel. No interventions.. PAST MEDICAL HISTORY Diagnosis [...] - APPENDECTOMY - COLONOSCOP W/ OR W/O [facility] SPEC Colonoscopy - COLONOSCOP W/ OR W/O [facility] SPEC 10/31/05 Repeat in - MOHS [...] Exam indication: Acute chest pain with suspected TX - The left ventricle is normal in [...] POA: Yes Assessment AND Plan: -will ask [facility] to re-send cath report, description of cath does not match the patient (report describes stents, but Mr Child has never had stents. 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 SIGNATURE: Orlando Jacobs APRN.RESPIRATORY SUPERVISOR PATIENT NAME: Krystain Child DATE: June 26, 2018 TIME: 11:38 AM PAGER/CONTACT #: [phone] Attending Note I have personally performed a face to face assessment of the patient and have reviewed the PA/RESISTOR COATER note. My bean findings include: Assessment/Plan are [...] MD Date: 06/27/2018 Time: 11:40 AM Normal [facility] CONSULT PROGon 06-26-2018 Protein mass conc HNO ID: [id number] Author: Julia Ackerman (Pa) Service: Cardiac Surgery Author Type: Physician Drop Worker Type: Consult Progress Note Filed: 07/03/2018 9:43 [...] cardiac catheterization 06/25/[address] Stubbs at [facility]. ? He reports he was in [place] [...] 0.762% CARE TEAM: Cardiac Surgeon: Dr. Villanueva Laundry Tub Maker: Evelyne PCP: Jamila Other Providers: N/A Pre-Op Testing: LABS: Recent [...] Negative NEGATIVE Bilirubin, Urine Negative NEGATIVE Specific [place], Ur 1.005 - 1.030 1.018 pH, Urine [...] abnormality Cardiac Catheterization: new/updated report reviewed from [facility] resent 06/28/2018 2D Echo: EF: 55% FINDINGS: [...] The mitral valve leaflets are structurally normal. Sycuan mitral valve. There is mild (1+) mitral valve regurgitation. The pressure half time is 74 msec. The peak mitral E/A ratio is 0.60. The average mitral E/e' ratio is 8.7. The mitral flow deceleration time is 254 msec. ? TRICUSPID VALVE The tricuspid valve leaflets are structurally normal. Sycuan tricuspid valve. There is trace tricuspid valve [...] Exam indication: Acute chest pain with suspected TX - The left ventricle is normal in [...] Clearance: N/A CT Chest: TBD review with NITZA Medications Notes: Blood thinners: Patient is on [...] No Vascular surgery No Other No Orlando Jacobs APRN.RESPIRATORY SUPERVISOR Normal [facility] Comprehensive Panelon 2018 ALP enzyme act/vol 49 U/L Normal 46-116 [facility] Comment on above: Performed By: #### P 14 #### [facility] [address] [place], [place] [address] Protein mass conc 6.7 g/dL Normal 6.4-8.2 [facility] Comment on above: Performed By: #### P 14 #### [facility] [address] [place], [place] [address] Bilirubin mass conc 0.6 mg/dL Normal 0.2-1.0 [facility] Comment on above: Performed By: #### P 14 #### [facility] [address] [place], [place] [address] ALT enzyme act/vol 24 U/L Normal 12-78 [facility] Comment on above: Performed By: #### P 14 #### [facility] [address] [place], [place] [address] Creatinine mass conc 1.03 mg/dL Normal 0.67-1.17 [facility] Comment on above: Performed By: #### P 14 #### [facility] [address] [place] [address] AST enzyme act/vol 13 U/L Normal 9-37 [facility] Comment on above: Performed By: #### P 14 #### [facility] [address] [place], [place] [address] Albumin mass conc 3.2 g/dL Low 3.4-5.0 [facility] Comment on above: Performed By: #### P 14 #### [facility] [address] [place], [place] [address] Anion gap molar conc 9 mmol/L Normal 8-16 [facility] Comment on above: Performed By: #### P 14 #### [facility] [address] [place], [place] [address] CO2 molar conc 26 mmol/L Normal 21-32 [facility] Comment on above: Performed By: #### P 14 #### [facility] [address] [place] [address] Glucose mass conc 97 mg/dL Normal 70-99 [facility] Comment on above: Performed By: #### P 14 #### [facility] [address] [place], [place] [address] Calcium mass conc 8.2 mg/dL Low 8.5-10.1 [facility] Comment on above: Performed By: #### P 14 #### [facility] [address] [place] [address] Urea nitrogen mass conc 19 mg/dL High 7-18 [facility] Comment on above: Performed By: #### P 14 #### [facility] [address] [place] [address] Chloride molar conc 108 mmol/L High 98-107 [facility] Comment on above: Performed By: #### P 14 #### [facility] [address] [place] [address] Potassium molar conc 4.0 mmol/L Normal 3.5-5.1 [facility] Comment on above: Performed By: #### P 14 #### [facility] [address] [place] [address] Sodium molar conc 139 mmol/L Normal 136-145 [facility] Comment on above: Performed By: #### P 14 #### [facility] [address] [place] [address] Hemogramon 06-26-2018 Erythrocyte distribution width Ratio (RBC) 13.1 % Normal 11.6-14.4 [facility] Comment on above: Performed By: #### C BC1 #### [facility] [address] [place] [address] Hematocrit Volume Fraction (Bld) 40.6 % Normal 40.1-51.0 [facility] Comment on above: Performed By: #### C BC1 #### [facility] [address] [place] [address] Hemoglobin mass conc (Bld) 14.0 g/dL Normal 13.7-17.5 [facility] Comment on above: Performed By: #### C BC1 #### [facility] [address] [place] [address] MCH Entitic mass (RBC) 31.9 pg Normal 25.7-32.2 [facility] Comment on above: Performed By: #### C BC1 #### [facility] [address] [place] [address] MCHC mass conc (RBC) 34.5 % Normal 32.3-36.5 [facility] Comment on above: Performed By: #### C BC1 #### [facility] [address] [place] [address] MCV Entitic volume (RBC) 92.5 fL Normal 83.2-95.6 [facility] Comment on above: Performed By: #### C BC1 #### [facility] [address] [place] [address] Platelet mean volume Entitic volume (Bld) 10.8 fL Normal 8.7-12.0 [facility] Comment on above: Performed By: #### C BC1 #### [facility] [address] [place] [address] Platelets #/vol (Bld) 162 thou/cmm Normal 141-365 [facility] Comment on above: Performed By: #### C BC1 #### [place] [address] RBC #/vol (Bld) 4.39 mil/cmm Low 4.63-6.08 [facility] Comment on above: Performed By: #### C BC1 #### [facility] [address] [place] [address] RDW SD 44.0 fl Normal 36.1-45.8 [facility] Comment on above: Performed By: #### C BC1 #### [place] [address] WBC #/vol (Bld) 6.57 thou/cmm Normal 4.23-9.07 [facility] Comment on above: Performed By: #### C BC1 #### [facility] [address] [place] [address] Hgb A1con 06-26-2018 Hemoglobin A1c/Hemoglobin.total mass fraction (Bld) 108 mg/dl Normal [facility] Comment on above: Performed By: #### H A1C #### [place] [address] Hemoglobin A1c/Hemoglobin.total mass fraction (Bld) 5.4 % Normal 4.2-6.3 [facility] Comment on above: Result Comment: Meth od is National Glycohemoglobin Standardization Program (NGSP) compliant. Performed By: #### H A1C #### [facility] [address] [place], [place] [address] Lipid Profileon 06-26-2018 Cholesterol in HDL mass conc 30 mg/dL Normal >40 [facility] Comment on above: Performed By: #### L IPD2 #### [facility] [address] [place], [place] [address] Cholesterol in LDL mass conc 86 mg/dL Normal [facility] Comment on above: Result Comment: No C AD and with fewer than 2 CAD risk factors <160 mg/dL No CAD but with 2 or more CAD risk factors <130 mg/dL Definite CAD or other atherosclerotic disease <100 mg/dL Performed By: #### L IPD2 #### [facility] [address] [place], [place] [address] Cholesterol in LDL/Cholesterol in HDL mass ratio 2.9 Normal 1.1-4.8 [facility] Comment on above: Result Comment: LDL, VLDL,LDL/HDL, Invalid if Triglyceride >400 Performed By: #### L IPD2 #### [facility] [address] [place], [place] [address] Cholesterol.total/Viktoria sterol in HDL mass ratio 5.1 {ratio} Normal 2.1-7.3 [facility] Comment on above: Performed By: #### L IPD2 #### [facility] [address] [place], [place] [address] Cholesterol in VLDL mass conc 37 mg/dL Normal <50 Desired [facility] Comment on above: Performed By: #### L IPD2 #### [facility] [address] [place], [place] [address] Triglyceride mass conc 187 mg/dL High 0-149 [facility] Comment on above: Result Comment: < 20 0 Desirable Result invalid if not a fasting specimen. Performed By: #### L IPD2 #### [facility] [address] [place], [place] [address] Cholesterol mass conc 153 mg/dL Normal 0-199 [facility] Comment on above: Result Comment: <200 Desirable 200-240 Borderline >240 High Performed By: #### L IPD2 #### [facility] [address] [place], [place] [address] Magnesium Bloodon 06-26-2018 Magnesium mass conc 2.1 mg/dL Normal 1.6-2.6 [facility] Comment on above: Performed By: #### M AG #### [facility] [address] [place], [place] [address] PROGRESSon 06-26-2018 Protein mass conc HNO ID: [id number] Author: Braeden August Service: Hospital Medicine Author Type: Physician Type: Progress Notes Filed: 06/26/2018 8:49 AM Note Text: DEPARTMENT OF HOSPITAL MEDICINE PROGRESS NOTE SERVICE DATE: 06/26/2018 SERVICE TIME: 8:41 AM Hospital Medicine/Primary Attending: Braeden August MD NIGHT AND WEEKEND COVERAGE: Please page [phone] from 7 PM to 7 AM Subjective [...] 1645 vte non-pharmacologic prophylaxis - none indicated (mo,oh) VTE Prophylaxis: VTE prophylaxis appropriate Disposition: Home Plan of care discussed with: Patient SIGNATURE: Braeden August MD PATIENT NAME: Krystian Child DATE: June 26, 2018 TIME: 8:41 AM PAGER/CONTACT #: [phone] Normal [facility] TSH, 3rd generationon 2018 TSH, 3rd generation 2.560 uIU/mL Normal 0.358-3.740 [facility] Comment on above: Performed By: #### T SH3 #### [place] [address] Urinalysis, reflexon 019 Reflex Comment see below Normal [facility] Comment on above: Result Comment: Refl ex to culture is not indicated based on established laboratory criteria. Performed By: #### U RIN #### [place] [address] Bacteria LM.HPF #/area (Urine sed) NONE Normal None [facility] Comment on above: Performed By: #### U RIN #### [place] [address] Ep Cells Urine 0.5 /hpf Normal 0.0-5.0 [facility] Comment on above: Performed By: #### U RIN #### [place] [address] Hyaline Cast 1.2 /lpf High 0.0-1.0 [facility] Comment on above: Performed By: #### U RIN #### [facility] [address] [place] [address] RBC,Urine 1.9 /hpf Normal 0.0-5.0 [facility] Comment on above: Performed By: #### U RIN #### [facility] [address] [place] [address] WBC, reflex 0.40 /hpf Normal 0.00-5.00 [facility] Comment on above: Performed By: #### U RIN #### [facility] [address] [place] [address] Appearance Nom (U) CLEAR Normal [facility] Comment on above: Performed By: #### U RIN #### [facility] [address] [place] [address] Bilirubin Urine Negative Normal Negative [facility] Comment on above: Performed By: #### U RIN #### [place] [address] Color Nom (U) YELLOW Normal [facility] Comment on above: Performed By: #### U RIN #### [place] [address] Glucose Ql (U) Negative Normal Negative [facility] Comment on above: Performed By: #### U RIN #### [place] [address] Hemoglobin,Urine Negative Normal Negative [facility] Comment on above: Performed By: #### U RIN #### [place] [address] Ketone Urine Negative Normal Negative [facility] Comment on above: Performed By: #### U RIN #### [place] [address] Leukocyte esterase Test strip Ql (U) Negative Normal Negative [facility] Comment on above: Performed By: #### U RIN #### [place] [address] Nitrite reflex Negative Normal Negative [facility] Comment on above: Performed By: #### U RIN #### [place] [address] pH (U) 6.5 [pH] Normal 5.0-8.0 [facility] Comment on above: Performed By: #### U RIN #### [facility] [address] [place], [place] [address] Protein mass conc (U) Negative Normal Negative [facility] Comment on above: Performed By: #### U RIN #### [facility] [address] [place], [place] [address] Specific [place], Ur 1.018 Normal 1.005-1.030 [facility] Comment on above: Performed By: #### U RIN #### [facility] [address] [place], [place] [address] Urobilinogen,Ur 1.0 EU/dL Normal 0.0-1.0 [facility] Comment on above: Performed By: #### U RIN #### [facility] [address] [place] [address] HISTORY PHYSICALon 9 HISTORY PHYSICAL HNO ID: [id number] Author: Braeden August Service: Hospital Medicine Author Type: Physician Type: HANDP Filed: 06/25/2018 5:27 PM Note Text: DEPARTMENT OF HOSPITAL MEDICINE HISTORY AND PHYSICAL EXAM SERVICE DATE: 06/25/2018 SERVICE TIME: 5:04 PM Primary Care Physician: Ligia Mcrae, DO NIGHT AND WEEKEND COVERAGE: Please page [phone] from 7 Pm to 7 AM Subjective [...] 1645 vte non-pharmacologic prophylaxis - none indicated (mo,oh) VTE Prophylaxis: VTE prophylaxis appropriate Disposition: Home with [facility] Plan of care discussed with: Patient SIGNATURE: Braeden August MD PATIENT NAME: Krystian Child DATE: June 25, 2018 TIME: 5:03 PM PAGER/CONTACT #: [phone] [phone] Normal [facility] HOSPon 06-25-2018 HOSP Patient:Krystian Child MRN: [...] DO NIGHT AND WEEKEND COVERAGE: Please page [phone] from 7 Pm to 7 AM Subjective [...] Prophylaxis: VTE prophylaxis appropriate Disposition: Home with [facility] Plan of care discussed with: Patient SIGNATURE: Braeden August MD PATIENT NAME: Krystian Child DATE: June 25, 2018 TIME: 5:03 PM PAGER/CONTACT #: [phone] Braeden August MD 06/26/2018 8:49 AM Signed DEPARTMENT OF HOSPITAL MEDICINE PROGRESS NOTE SERVICE DATE: 06/26/2018 SERVICE TIME: 8:41 AM Hospital Medicine/Primary Attending: Braeden August MD NIGHT AND WEEKEND COVERAGE: Please page [phone] from 7 PM to 7 AM Subjective [...] 1645 vte non-pharmacologic prophylaxis - none indicated (mo,oh) VTE Prophylaxis: VTE prophylaxis appropriate Disposition: Home Plan of care discussed with: Patient SIGNATURE: Braeden August MD PATIENT NAME: Krystian Child DATE: June 26, 2018 TIME: 8:41 AM PAGER/CONTACT #: [phone] Oscar Villanueva MD 06/27/2018 11:42 AM Addendum [...] cardiac catheterization 06/25/[address] Stubbs at [facility]. He reports he was in [place] a [...] the perioperative course: - CAD of the quechan vessel. No interventions.. PAST MEDICAL HISTORY Diagnosis [...] - APPENDECTOMY - COLONOSCOP W/ OR W/O [facility] SPEC Colonoscopy - COLONOSCOP W/ OR W/O [facility] SPEC 10/31/05 Repeat in - [place]HS [...] Official report is pending, images available in [employer]. 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 Chest X-RAY: Pending ECHO: CONCLUSIONS: - Technically difficult exam due to Limited Subcostals. - Exam indication: Acute chest pain with suspected TX - The left ventricle is normal in [...] POA: Yes Assessment AND Plan: -will ask [facility] to re-send cath report, description of cath does not match the patient (report describes stents, but Mr Child has never had stents. 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 SIGNATURE: Orlando Jacobs APRN.RESPIRATORY SUPERVISOR PATIENT NAME: Krystian Child DATE: June 26, 2018 TIME: 11:38 AM PAGER/CONTACT #: [phone] Attending Note I have personally performed a face to face assessment of the patient and have reviewed the PA/RESISTOR COATER note. My bean findings include: Assessment/Plan are [...] MD NIGHT AND WEEKEND COVERAGE: Please Page [phone] from 7 PM to 7 AM Subjective [...] 2018 TIME: 9:47 AM PAGER/CONTACT #: [phone] [phone] Braeden August MD 06/28/2018 8:39 AM Signed DEPARTMENT OF HOSPITAL MEDICINE PROGRESS NOTE SERVICE DATE: 06/28/2018 SERVICE TIME: 8:31 AM Hospital Medicine/Primary Attending: Braeden August MD NIGHT AND WEEKEND COVERAGE: Please page [phone] from 7 PM to 7 AM Subjective [...] 1645 vte non-pharmacologic prophylaxis - none indicated (mo,oh) VTE Prophylaxis: VTE prophylaxis appropriate Disposition: Home Plan of care discussed with: Patient SIGNATURE: Braeden August MD PATIENT NAME: Krystian Child DATE: June 28, 2018 TIME: 8:31 AM PAGER/CONTACT #: [phone] [phone] Keisha Tamayo RN, RN 06/28/2018 4:03 PM Signed CARE MANAGEMENT: ASSESSMENT AND DISCHARGE PLAN SERVICE DATE: 06/28/2018 SERVICE TIME: 4:01 PM PRIMARY CARE PHYSICIAN: Ligia Mcrae DO ADMISSION STATUS: Inpatient Needs Prior to Discharge: Home Care 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 No SOCIAL: Living Arrangement: Home Lives With: Spouse Financial Resources: Retired Primary Contact: Extended Emergency Contact Information Primary Emergency Contact: Bozena Child Address: [address] [place] [address] Relation: Spouse Supportive: Yes Other Important Patient [...] 0 I feel financially burdened by my [id number] expenses for my prescription medication: Disagree mostly [...] FREEDOM OF CHOICE EXPLAINED: Preference: [facility] or [facility] POTENTIAL TRANSITION PLANS Home Home Care Spoke with pt at the bedside. Pt states that he lives at home with his myrna STILL. Plan CABG this . Anticipate need for hhc post op- pt would like [facility] ( if unable would like [facility]). Will follow. SIGNATURE: Keisha Tamayo RN PATIENT NAME: Krystian Child DATE: June 28, 2018 TIME: 4:01 PM PAGER/CONTACT #: [phone] Braeden August MD 06/29/2018 9:35 AM Signed DEPARTMENT OF HOSPITAL MEDICINE PROGRESS NOTE SERVICE DATE: 06/29/2018 SERVICE TIME: 9:32 AM Hospital Medicine/Primary Attending: Braeden August MD NIGHT AND WEEKEND COVERAGE: Please page [phone] from 7 PM to 7 AM Subjective [...] 1645 vte non-pharmacologic prophylaxis - none indicated (mo,oh) VTE Prophylaxis: VTE prophylaxis appropriate Disposition: Home Plan of care discussed with: Patient SIGNATURE: Braeden August MD PATIENT NAME: Krystian Child DATE: June 29, 2018 TIME: 9:32 AM PAGER/CONTACT #: [phone] Zechariah Pedroza APRN.ELAINE VAN 06/30/2018 10:23 AM [...] has no questions at this point. ELAINE Jackson RN, RN 06/30/2018 10:36 AM Signed CARE MANAGEMENT PROGRESS NOTE SERVICE DATE: 06/30/2018 SERVICE TIME: 10:35 AM LOS: 5 days Chart reviewed. Plan CABG. Anticipate home with hhc- [facility] able to accept post op. Will follow. SIGNATURE: Keisha Tamayo RN PATIENT NAME: Krystian Child DATE: June 30, 2018 TIME: 10:35 AM PAGER/CONTACT #: [phone] Wallace Barrientos MD 06/30/2018 4:42 PM Signed [...] - APPENDECTOMY - COLONOSCOP W/ OR W/O [facility] SPEC Colonoscopy - COLONOSCOP W/ OR W/O [facility] SPEC 10/31/05 Repeat in - MOHS [...] (NEOSYNEPHRINE) 25-300 mcg/min INTRAVENOUS ONCE Oscar A rra [MAR Hold due to Transfer] aminocaproic acid 10 g in NaCl 0.9% 250 mL (AMicAR) 1 g/hr INTRAVENOUS ONCE Oscar A rra [MAR Hold due to Transfer] dexmedetomidine 400 [...] NOMOGRAM 0-12 Units/hr INTRAVENOUS ONCE Oscar A Lahorra [MAR Hold due to Transfer] nitroglycerin 100 mg in D5W 250 mL 5-20 mcg/min INTRAVENOUS ONCE Oscar A Lahorra [MAR Hold due to Transfer] NORepinephrine 16 mg in NaCl 0.9% 250 mL (LEVOPHED) 0-20 mcg/min INTRAVENOUS ONCE Oscar Villanueva [JUL Hold due to Transfer] PHENYLephrine iv infusion 10 mg in NaCl 0.9% 250 mL (EMMA-SYNEPHRINE) 0-100 mcg/min INTRAVENOUS ONCE Oscar Villanueva [JUL Hold due to Transfer] dextrose 50 g, insulin regular human 10 Units, potassium chloride 80 mEq, lidocaine (PF) 20 mg/mL (2 %) 100 mg, magnesium sulfate 4 g in electrolyte-a (PLASMA-LYTE A) 1,000 mL solution MISCELLANEOUS ONCE Oscar Hanna azar [JUL Hold due to Transfer] dextrose 25 g, insulin regular human 5 Units, potassium chloride 20 mEq, lidocaine (PF) 20 mg/mL (2 %) 50 mg, magnesium sulfate 2 g in electrolyte-a (PLASMA-LYTE A) 500 mL solution MISCELLANEOUS ONCE Oscar Hanna azar [JUL Hold due to Transfer] NaCl 0.9% [...] mg ORAL q 6 H PRN Braeden ungwu [JUL Hold due to Transfer] docusate sodium [...] Braeden Ofungwu 25 mg at 07/01/18 0530 [JUL Hold due to Transfer] enoxaparin 40 [...] - Distal L main disease, LAD, and 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 - Exam indication: Acute chest pain with suspected TX - The left ventricle is normal in [...] prior CC echocardiographic exam for comparison Normal [facility] MRSA Screenon 06-25-2018 MRSA DNA OJ+probe Ql (Unsp spec) Test performed at [facility] No MRSA detected. Normal [facility] Comment on above: Performed By: #### M [facility] #### [place] [address] Culture, urine Bacteria identified Cx Nom (U) Citrobacter amalonaticus [facility] Work Phone: Vital Signs Date Time Vital Sign Value Performing Clinician Facility 03-16-2025 11:03-0400 Body height 178 cm Jorge Hyatt MD Work Phone: [facility] 03-16-2025 11:03-0400 Body height 177.8 cm Jorge Hyatt MD Work Phone: [facility] 03-16-2025 11:03-0400 Body mass index (BMI) [Ratio] 30.1 kg/m2 Jorge Hyatt MD Work Phone: [facility] 03-16-2025 11:03-0400 Body weight 95 kg Jorge Hyatt MD Work Phone: [facility] 03-16-2025 11:03-0400 Body weight 94.8 kg Jorge Hyatt MD Work Phone: [facility] 03-16-2025 11:03-0400 BP SITE #1 Jorge Hyatt MD Work Phone: [facility] 03-16-2025 11:03-0400 Diastolic blood pressure 77 mm[Hg] Jorge Hyatt MD Work Phone: [facility] 03-16-2025 11:03-0400 HGHTCHNVIS Jorge Hyatt MD Work Phone: [facility] 03-16-2025 11:03-0400 Systolic blood pressure 154 mm[Hg] Jorge Hyatt MD Work Phone: [facility] 03-16-2025 11:03-0400 VITALSDONE Jorge Hyatt MD Work Phone: [facility] 02-16-2025 10:51-0400 Body height 178 cm Jorge Hyatt MD Work Phone: [facility] 02-16-2025 10:51-0400 Body height 177.8 cm Jorge Hyatt MD Work Phone: [facility] 02-16-2025 10:51-0400 Body mass index (BMI) [Ratio] 29.52 kg/m2 Jorge Hyatt MD Work Phone: [facility] 02-16-2025 10:51-0400 Body weight 93 kg Jorge Hyatt MD Work Phone: [facility] 02-16-2025 10:51-0400 Body weight 92.99 kg Jorge Hyatt MD Work Phone: [facility] 02-16-2025 10:51-0400 BP SITE #1 Jorge Hyatt MD Work Phone: [facility] 02-16-2025 10:51-0400 BP SITE #2 Jorge Hyatt MD Work Phone: [facility] 02-16-2025 10:51-0400 Diastolic blood pressure 77 mm[Hg] Jorge Hyatt MD Work Phone: [facility] 02-16-2025 10:51-0400 Diastolic blood pressure 81 mm[Hg] Jorge Hyatt MD Work Phone: [facility] 02-16-2025 10:51-0400 Heart rate 55 /min Jorge Hyatt MD Work Phone: [facility] 02-16-2025 10:51-0400 HGHTCHNVIS Jorge Hyatt MD Work Phone: [facility] 02-16-2025 10:51-0400 Systolic blood pressure 172 mm[Hg] Jorge Hyatt MD Work Phone: [facility] 02-16-2025 10:51-0400 Systolic blood pressure 169 mm[Hg] Jorge Hyatt MD Work Phone: [facility] 02-16-2025 10:51-0400 VITALSDONE Jorge Hyatt MD Work Phone: [facility] 10-05-2024 14:43-0400 Body height 177.[address] Ligia Mcrae DO Work Phone: [facility] 10-05-2024 14:43-0400 Body mass index (BMI) [Ratio] 29.5 kg/m2 Dr. Ligia Mcrae DO Work Phone: [facility] 10-05-2024 14:43-0400 Body temperature 98.7 [degF] Dr. Ligia Mcrae DO Work Phone: [facility] 10-05-2024 14:43-0400 Body weight 93.[address] Ligia Mcrae DO Work Phone: [facility] 10-05-2024 14:43-0400 Diastolic blood pressure 77 mm[Hg] Dr. Ligia Mcrae DO Work Phone: [facility] 10-05-2024 14:43-0400 Heart rate 58 /min Dr. Ligia Mcrae DO Work Phone: [facility] 10-05-2024 14:43-0400 Respiratory rate 18 /min Dr. Ligia Mcrae DO Work Phone: [facility] 10-05-2024 14:43-0400 SaO2% (BldA) [Mass fraction] 94 % Dr. Ligia Mcrae DO Work Phone: [facility] 10-05-2024 14:43-0400 Systolic blood pressure 157 mm[Hg] Dr. Ligia Mcrae DO Work Phone: [facility] 03-16-2023 10:27-0400 Body height 177.[address] Ligia Mcrae Work Phone: [facility] 03-16-2023 10:27-0400 Body mass index (BMI) [Ratio] 31.1 kg/m2 Dr. Ligia Mcrae Work Phone: [facility] 03-16-2023 10:27-0400 Body weight 98.[address] Ligia Mcrae Work Phone: [facility] 03-16-2023 10:27-0400 Diastolic blood pressure 78 mm[Hg] Dr. Ligia Mcrae Work Phone: [facility] 03-16-2023 10:27-0400 Heart rate 56 /min Dr. Ligia Mcrae Work Phone: [facility] 03-16-2023 10:27-0400 Respiratory rate 14 /min Dr. Ligia Mcrae Work Phone: [facility] 03-16-2023 10:27-0400 Systolic blood pressure 169 mm[Hg] Dr. Ligia Mcrae Work Phone: [facility] 02-05-2022 09:01-0400 Body height 179.[address] Ligia Mcrae Work Phone: [facility] Work Phone: 02-05-2022 09:01-0400 Body mass index (BMI) [Ratio] 31.1 kg/m2 Dr. Ligia Mcrae Work Phone: [facility] Work Phone: 02-05-2022 09:01-0400 Body weight 99.[address] Ligia Mcrae Work Phone: [facility] Work Phone: 10-09-2021 13:24-0400 Body height 179.[address] Ligia Mcrae Work Phone: [facility] Work Phone: 10-09-2021 13:24-0400 Body mass index (BMI) [Ratio] 30.7 kg/m2 Dr. Ligia Mcrae Work Phone: [facility] Work Phone: 10-09-2021 13:24-0400 Body temperature 98.7 [degF] Dr. Ligia Mcrae Work Phone: [facility] Work Phone: 10-09-2021 13:24-0400 Body weight 98.[address] Ligia Mcrae Work Phone: [facility] Work Phone: 10-09-2021 13:24-0400 Diastolic blood pressure 76 mm[Hg] Dr. Ligia Mcrae Work Phone: [facility] Work Phone: 10-09-2021 13:24-0400 Heart rate 66 /min Dr. Ligia Mcrae Work Phone: [facility] Work Phone: 10-09-2021 13:24-0400 Respiratory rate 15 /min Dr. Ligia Mcrae Work Phone: [facility] Work Phone: 10-09-2021 13:24-0400 SaO2% (BldA) [Mass fraction] 93 % Dr. Ligia Mcrae Work Phone: [facility] Work Phone: 10-09-2021 13:24-0400 Systolic blood pressure 151 mm[Hg] Dr. Ligia Mcrae Work Phone: [facility] Work Phone: 10-12-2019 12:59-0400 Body mass index (BMI) [Ratio] 26.8 kg/m2 Dr. Ligia Mcrae Work Phone: [facility] 10-12-2019 12:59-0400 Body temperature 97.7 [degF] Dr. Ligia Mcrae Work Phone: [facility] 10-12-2019 12:59-0400 Body weight 84.[address] Ligia Mcrae Work Phone: [facility] Work Phone: 10-12-2019 12:59-0400 Diastolic blood pressure 79 mm[Hg] Dr. Ligia Mcrae Work Phone: [facility] 10-12-2019 12:59-0400 Heart rate 62 /min Dr. Ligia Mcrae Work Phone: [facility] 10-12-2019 12:59-0400 Respiratory rate 16 /min Dr. Ligia Mcrae Work Phone: [facility] 10-12-2019 12:59-0400 SaO2% (BldA) [Mass fraction] 96 % Dr. Ligia Mcrae Work Phone: [facility] 10-12-2019 12:59-0400 Systolic blood pressure 144 mm[Hg] Dr. Ligia Mcrae Work Phone: [facility] 07-01-2018 15:24-0500 Body temperature 37.0 [facility] Comment on above: Performed By: #### P14 #### [address] [address] Encounters Encounter Date Encounter Type Care Provider Facility Start: 04-06-2025 ambulatory [facility] Facility: [facility] Start: 03-31-2025 ambulatory [facility] Facility: [facility] Start: 03-30-2025 Encounter for other preprocedural examination Carlos Demiter [facility] Start: 03-24-2025 ambulatory Carlos Demiter Facility :[facility] Start: 03-24-2025 End: 03-24-2025 ambulatory [facility] Facility:[facility] Start: 03-16-2025 Visit out of hours Jorge duarte MD Work Phone: [facility] [employer] Work Phone: Start: 03-16-2025 In-person encounter Jorge orta MD Work Phone: [facility] Work Phone: Start: 02-24-2025 End: 02-24-[address] Ligia Mcrae DO Work Phone: -Physical Therapy Start: 02-24-2025 End: 02-24-[address] Jorge Hyatt MD -Physical Therapy Work Phone: Start: 02-17-2025 Visit out of hours Jorge duarte MD Work Phone: [employer] Work Phone: Start: 02-17-[address] Jorge Hyatt MD -Physical Therapy Work Phone: Start: 02-16-2025 In-person encounter Jorge orta MD Work Phone: [facility] Work Phone: Start: 02-02-2025 End: 02-02-[address] Ligia Mcrae DO Work Phone: [facility] Start: 02-02-2025 End: 02-02-[address] Ligia Mcrae DO [facility] Work Phone: Start: 02-02-2025 End: 02-02-2025 ambulatory Ligia Jamila Facility:[facility] Start: 11-23-2024 End: 11-23-[address] Ligia Mcrae DO Work Phone: -Laboratory Specimen Start: 11-23-2024 End: 11-23-[address] Ligia Mcrae DO -Laboratory Specimen Work Phone: Start: 11-23-2024 End: 11-23-2024 [facility] Start: 10-05-2024 End: 10-05-[address] Oscar Winkler MD -[facility] Work Phone: Start: 10-05-2024 End: 10-05-[address] Ligia Mcrae DO Work Phone: [facility] Work Phone: Start: 09-22-2024 ambulatory [facility]: [facility] Start: 09-22-[address] Oscar Winkler MD -[facility] Start: 04-22-2023 Non-patient / Non-visit Dr. Anca Mcrae Work Phone: [facility] Work Phone: Start: 04-21-2023 Non-patient / Non-visit Dr. Anca Mcrae Work Phone: [facility] Work Phone: Start: 04-20-2023 Non-patient / Non-visit Dr. Anca Mcrae Work Phone: [facility] Work Phone: Start: 04-20-2023 Non-patient / Non-visit Dr. Anca Mcrae Work Phone: [facility] Start: 04-20-2023 End: 04-20-[address] Ligia Mcrae Work Phone: [facility] Work Phone: Start: 04-20-2023 End: 04-20-[address] Ligia Mcrae Work Phone: [facility] Work Phone: Start: 03-16-2023 End: 03-16-[address] Ligia Mcrae Work Phone: [facility] Work Phone: Start: 07-31-2022 End: 07-31-2022 ambulatory [facility] Work Phone: Start: 07-31-2022 End: 07-31-2022 Patient encounter procedure [facility] Start: 07-10-2022 End: 07-10-2022 ambulatory [facility] Work Phone: Start: 07-10-2022 End: 07-10-2022 Patient encounter procedure [facility] Start: 03-06-2022 End: 03-06-[address] Ligia Mcrae Work Phone: [facility] Start: 02-24-2022 End: 02-24-[address] Ligia Mcrae Work Phone: [facility] Work Phone: Start: 02-24-2022 End: 02-24-[address] Ligia Mcrae Work Phone: [facility] Start: 02-19-2022 End: 02-19-[address] Ligia Mcrae Work Phone: [facility] Work Phone: Start: 02-19-2022 End: 02-19-[address] Ligia Mcrae Work Phone: [facility]-Laboratory, Specimen Start: 02-05-2022 End: 02-05-[address] Ligia Mcrae Work Phone: [facility] Start: 01-18-2022 End: 01-18-[address] Ligia Mcrae Work Phone: [facility] Work Phone: Start: 01-18-2022 End: 01-18-[address] [facility] Start: 11-05-2021 End: 11-05-[address] Ligia Mcrae Work Phone[facility] Start: 10-09-2021 End: 10-09-[address] Ligia Mcrae Work Phone: [facility] Start: 09-30-[address] 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 SUPERVISOR) [facility] Start: 06-25-2018 End: 07-06-2018 [facility] Procedures Date Procedure Procedure Detail Performing Clinician Start: 03-16-2025 BMI documented as ab ove normal parameters - follow-up documented Jorge Hyatt MD Work Phone: Start: 03-16-2025 Current tobacco non- user cad cap copd pv dm Jorge Hyatt MD Work Phone: Start: 03-16-2025 Documentation of cur rent medications Jorge Hyatt MD Work Phone: Start: 03-16-2025 Pain assessment docu mented as positive - no follow-up/reason not given Jorge Hyatt MD Work Phone: Start: 02-17-2025 Blood pressure outsi de of normal parameters - follow-up not documented Jorge Hyatt MD Work Phone: Start: 02-17-2025 BMI outside of kirsten l parameters - no follow-up plan/reason not given Jorge Hyatt MD Work Phone: Start: 02-17-2025 Current tobacco non- user cad cap copd pv dm Jorge Hyatt MD Work Phone: Start: 02-17-2025 Documentation of cur rent medications Jorge Hyatt MD Work Phone: Start: 02-17-2025 Pain assessment docu mented as positive - no follow-up/reason not given Jorge Hyatt MD Work Phone: Start: 02-16-2025 Physical therapy management Jorge Hyatt MD Work Phone: Start: 02-02-2025 MRI of lumbar spine Dr. Ligia Mcrae DO Work Phone: Start: 09-22-[address] Ligia [...] anticardiolipin andbeta-2 glycoprotein 1 antibody testing.Performed at: [place] [id number] [place], [place] [id number] Director: Kim Brito MD, Phone: [phone] Start: 09-22-2024 Lupus anticoagulant assay, platelet neutralization [...] SVG-RCA 07/01/18 Start: 06-29-2018 Antibody screen [facility] Comment on above: Performed By: #### P 14 #### [place] [id number] Urine culture Dr. Ligia mckenzie Work Phone: Viral antigen assay Plan of Treatment Date Care Activity Detail Author Start: 03-06-2022 Patient referral [facility] Work Phone: Patient referral [facility] Work Phone: Payers Date Payer Category Payer Medicare [id number] 2019 Self-pay [id number] 1945 Unknown [id number] 2.16.8 [id number] 1945 Unknown [id number] 2.16.8 [id number] 1945 Unknown [id number] 2.16.8 [id number] Unknown [id number] 2.16.8 [id number] Unknown [id number] 2.16.8 [id number] Unknown [id number] 2.16.8 [id number] Unknown [id number] 2.16.8 [id number] Unknown [id number] 2.16.8 [id number] Unknown [id number] 2.16.8 [id number] Unknown [id number] 2.16.8 [id number] Unknown [id number] 2.16.8 [id number] Unknown [id number] 2.16.8 [id number] Social History Date Type Detail Facility Start: 11-22-2020 End: 03-16-2023 Tobacco smoking status NHIS Unknown if ever smoked [facility] Start: 02-17-2019 None [facility] Start: 02-17-2019 Spouse/ Signif icant Other [facility] Start: 02-17-2019 Non-smoker [facility] Start: 1945 Sex Assigned At Male [facility] Start: 03-16-2023 Tobacco smoking status NHIS Ex-smoker (finding) [facility] Start: 02-16-2025 End: 03-16-2025 social history reviewed E&M Done [facility] Start: 02-16-2025 Tobacco smoking status Never smoked any substance (finding) [employer] Work Phone: Mental Status Date Assessment Result Facility 02-16-2025 Cognitive Function [place] [facility] Work Phone: Clinical Notes 07-01-2018 to 02-24-2025 Note Date & Type Note Facility 02-24-2025 Discharge summary Note Date/Time February 24, 2025 7: 00pm [facility] Physical Therapy [address] [place] [address] / REHABILITATION SERVICES DISCHARGE SUMMARY MR#: [id number] Acct: [id number] Name: KRYSTIAN CHILD Rep #: [id number] : 1945 79 From: Cert. ROJELIO Schulz, OCS Referring Dr.: Dr. Jorge Hyatt MD Status: REG RCR [facility] 03/25/18 SELF PAY INSURANCE Discharge Summary D/C summary: It has been my pleasure to treat KRYSTIAN J PTAK referred by Dr. Jorge Hyatt MD, with the diagnosis of SPINAL STENOSIS LUMBAR REGION WITH NEUROGENIC ,SPONDYLOTHESIS LUMAR for a total of 2 visit(s). Discharge Date: 02/24/25 Please see the following information for a summary of their discharge status. Subjective Subjective: Planning for surgery Date is unknown Wants to stop PT Pain Bilateral Back: Pain Intensity (Out of 10): 7 Objective Objective/Function: Did well with ex's appropriate fatigue , Discussed with patient ,that he want to do ex' at home and is planning for surgery Goals Goal 1:: Patient to be I with HEP for back Goal Progress: Progressing Goal 2:: Patient demonstrate 50% improvement with less symptoms with walking/standing Goal Progress: Not Progressing Goal 3:: Patient to improve lumbar ROM for function of recovery for ADL's and housework tasks Goal Progress: Not Progressing Goal 4:: Patient to improve back oswestry score by 5 points to improve QOL and function Goal Progress: Not Progressing Plan Plan: D/C SCHEDULING FOR BACK SURGERY D/C Information Discharge Comments: SURGERY BACK d/c sentence: If there are questions or concerns regarding this patient's physical therapy, please feel free to call me at [phone]. Thank you for the referral of thispatient. Sincerely, William Hayden PT, Jl NAVARRETET, OCS Balance/Gait/Functional tests Balance/Special Test Scores Oswestry Low Back Score: 18 <Electronically signed by Cert. ROJELIO Bedoya PT, OCS> 02/27/25 1137 CC: Dr. Jorge Hyatt MD; Dr. Ligia Mcrae, DO ~ GEORGE Signed [facility] Work Phone: 1(607) 891-135310-03-2025 Discharge summary [facility] Physical Therapy [facility] [address] [place] [address] [address] [place] [address] / REHABILITATION SERVICES DISCHARGE SUMMARY MR#: [id number] Acct: [id number] Name: KRYSTIAN CHILD Rep #: [id number] : 1945 79 From: Cert. ROJELIO Schulz, OCS Referring Dr.: Dr. Jorge Hyatt MD Status: REG RCR Insurance[facility] 03/25/18 SELF PAY INSURANCE Discharge Summary D/C summary: It has been my pleasure to treat KRYSTIAN CHILD referred by Dr. Jorge Hyatt MD, with the diagnosis of SPINAL STENOSIS LUMBAR REGION WITH NEUROGENIC ,SPONDYLOTHESIS LUMAR for a total of 2 visit(s). Discharge Date: 02/24/25 Please see the following information for a summary of their discharge status. Subjective Subjective: Planning for surgery Date is unknown Wants to stop PT Pain Bilateral Back: Pain Intensity (Out of 10): 7 Objective Objective/Function: Did well with ex's appropriate fatigue , Discussed with patient ,that he want to do ex' at home and is planning for surgery Goals Goal 1:: Patient to be I with HEP for back Goal Progress: Progressing Goal 2:: Patient demonstrate 50% improvement with less symptoms with walking/standing Goal Progress: Not Progressing Goal 3:: Patient to improve lumbar ROM for function of recovery for ADL's and housework tasks Goal Progress: Not Progressing Goal 4:: Patient to improve back oswestry score by 5 points to improve QOL and function Goal Progress: Not Progressing Plan Plan: D/C SCHEDULING FOR BACK SURGERY D/C Information Discharge Comments: SURGERY BACK d/c sentence: If there are questions or concerns regarding this patient's physical therapy, please feel free to call me at [phone]. Thank you for the referral of thispatient. Sincerely, William Hayden, PT, Cert MDT, OCS Balance/Gait/Functional tests Balance/Special Test Scores Oswestry Low Back Score: 18 02/27/25 1137 CC: Dr. Jorge Hyatt MD; Dr. Ligia Mcrae, DO ~ JLA Signed [facility] [facility]05[facility]2025 [facility] [address] [place], [place] [address] [address] OFFICE VISIT Date of Service: 10/05/24 1443 MR#: [id number] Acct: [id number] Name: KRYSTIAN CHILD Rep #: [id number] : 1945 From: Oscar Winkler MD Age/Sex: 78/M Location: [facility] Status: Signed HPI Subjective Date of Service 10/05/24 Chief Complaint F/u for lupus anticoagulant positivity. History of Present Illness 78y.o.man was admitted in January 2019 at [facility] for pneumonia. He also had Rmiddle lobe density. CT chest in March 2019 was normal. He was found to have abnormal/increase PTT which has persisted since that admission so was referred for evaluation. He denied bleeding gums,clotting, bleeding into soft tissue, joint bleeding or family history of bleeding. He is on observation. Had repeat blood work and comes for follow up. [facility] Medical History (Updated 10/05/24 @ 15:[address] 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 Ligia Mcrae, DO ~ [facility]05-14-2025 Progress note Author Oscar Winkler [facility] Note Date/Time October 05, 2024 3:12p m [facility] [address] [place] [address] OFFICE VISIT Date of Service: 10/05/24 1443 MR#: [id number] Acct: [id number] Name: KRYSTIAN CHILD Rep #: [id number] : 1945 From: Oscar Winkler MD Age/Sex: 78/M Location: [facility] Status: Signed HPI Subjective Date of Service 10/05/24 Chief Complaint F/u for lupus anticoagulant positivity. History of Present Illness 78y.o.man was admitted in January 2019 at [facility] for pneumonia. He also had R middle lobe density. CT chest in March 2019 was normal. He was found to have abnormal/increase PTT which has persisted since that admission so was referred for evaluation. He denied bleeding gums, clotting, bleeding into soft tissue, joint bleeding or family history of bleeding. He is on observation. Had repeat blood work and comes for follow up. [facility] Medical History (Updated 10/05/24 @ 15:[address] 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 Ligia Mcrae, DO ~ [facility] Work Phone: 1(315) 742-253305-01-2025 Evaluation note* Diagnosis Onset Date Resolution Status Admit Date Abnormal coagulation profile chronic September 22, 2024 2:30pm Lung mass chronic September 22, 2024 2:30pm Lupus anticoagulant positive chronic September 22, 2024 2:30pm Lupus anticoagulant positive chronic October 05, 2024 2:38pm [facility] Work Phone: 1(868) 540-216602-18-2021 NotePatient Outreach ([facility]) KRYSTIAN CHILD ([id number]) 1945 M NFR Date Time Provider Department 07/12/20 DAVID SIGALA During your visit today, we recorded the following information about you: Allergies As of Date: 07/12/2020 (No Known Allergies) Date Reviewed: 08/10/2018 Reviewed by: Carley (Danial) Tess - Fully Assessed Order(s):SARS-COVID VACCINE 1ST DOSE APPT [02073STK] Order #: [id number] FUTURE Prescriptions as of 07/12/2020 Sig: ACETAMINOPHEN [...] x 4 [Z95.1] 07/03/2018 Encounter Status:Closed by LitebiGLENNUSER on 07/16/20[facility] 07-01-2018 Evaluation note* Diagnosis Onset Date Resolution Status Essential (primary) hypertension chronic H/O coronary artery bypass surgery July 01, 2018 chronic Hyperlipidemia chronic [facility] Work Phone: Evaluation note* Diagnosis Onset Date Resolution Status Abnormal coagulation profile chronic Lung mass chronic 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 [facility] Work Phone: Evaluation note* Diagnosis Onset Date Resolution Status Back pain acute 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 Spinal stenosis of lumbosacral region acute Low back pain noneactive [facility] Work Phone: Evaluation note* Diagnosis Onset Date Resolution Status Back pain acute 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 Spinal stenosis of lumbosacral region acute Low back pain noneactive Spinal stenosis of lumbosacral region acute [facility] Work Phone: Evaluation noteNo assessment information available [facility] Work Phone: Hospital Discharge instructionsAmbulatory Orders* Pain Management Location: None Selected [facility] Work Phone: Reason for referral (narrative)No reason for [facility] Work Phone: Summary Purpose Family History No Family History Records Found Relationship Condition Age at Onset Recorded Date/[place] father Malignant neoplasm of colon Unknown mother Diabetes mellitus Unknown Cardiac disease Unknown Hypertension Unknown Coronary artery disease Unknown Cerebrovascular accident (CVA) Unknown brother Cerebrovascular accident (CVA) Unknown Myocardial infarction Unknown Family Member Condition Father Mother Family Member Condition Father Mother Advance Directives No Advanced Directives Records Found Advance Directive Response Recorded Date/ Time Advance Directives No June 10:04am Living Will Yes November 22, 2020 1 :42pm Power of Toilet Attendant Yes November 22, 2020 1:42pm Advance Directive Response Recorded Date/ Time Advance Directives No June 9:04am Living Will Yes November 22, 2020 1 2:42pm Power of Toilet Attendant Yes November 22, 2020 12:42pm Advance Directive Response Recorded Date/ Time Living Will Yes February 17, 2019 12:23pm Do you have a Healthcare Power of Toilet Attendant? Yes February 17, 2019 12:23pm Advance Directives No June 10:04am Advance Directive Response Recorded Date/ Time Advance Directives No June 10:04am Hospital Course Note HNO ID: [id number] Author: Jayleen Jacobs Service: Cardiac Surgery Author [...] L FOREARM November 23, 2024 3:3 4pm Chief Complaint Admit Date SKIN LESION L FOREARM November 23, 2024 3:3 4pm Spinal stenosis, lumbar region with neur ogenic cla February 02, 2025 7:07am LUMBAR RADIC/PT HAS RX February 17, 2 025 11:48am Chief Complaint Admit Date SKIN LESION L FOREARM November 23, 2024 3:3 4pm Spinal stenosis, lumbar region with neur ogenic cla February 02, 2025 7:07am LUMBAR RADIC/PT HAS RX February 24, 2025 9:00am Additional Source Comments (unrecognized sect ion and content) No Status Records FoundNo Status Records FoundNo Status Records FoundNo Status Records Found INFORMATION SOURCE (unrecogn ized section and content) DATE CREATED AUTHOR 08/10/2018 [facility] DATE CREATED AUTHOR AUTHOR'S ORGANIZ ATION 08/10/2018 [facility] DATE CREATED AUTHOR AUTHOR'S ORGANIZ ATION 07/05/2021 [facility] DATE CREATED AUTHOR AUTHOR'S ORGANIZ ATION 03/31/2025 [facility] Goals (unrecognized section and content) Goals [...] may be documented in an alternate section No Information AvailableGoals may be documented in an alternate sectionGoals may be documented in an alternate section No Information Available Care Teams (unrecognized sec tion and content) Team Status: Active Member Role Status Dates Dr. Ligia Mcrae DO Family Provider Active Dr. Ligia Mcrae DO Primary Care Provider Active Team Status: Inactive Member Role Status Dates Dr. Ligia Mcrae DO Primary Care Prov ider, Attending Provider, [...] DO Primary Care Provider Active Abe Lazo PATROL OFFICER, PATROL OFFICER-C Attending Provider Active Team Status: Inactive Member [...] November 23, 2024 End: November 23, 2024 Team Status: Active Member Role/Relationship Status Dates Dr. Ligia Mcrae DO Primary care physician Active Team Status: Inactive Member Role/Relationship Status Dates Dr. Ligia Mcrae DO Primary care physician Active Start: November 23, 2024 End: November 23, 2024 Dr. Ligia Mcrae DO Attending physician Active Start: November 23, 2024 End: November 23, 2024 Dr. Ligia Mcrae DO Referring Provider Active Start: November 23, 2024 End: November 23, 2024 Team Status: Inactive Member Role/Relationship Status Dates Dr. Ligia Mcrae DO Primary care physician Active Start: February 02, 2025 End: February 02, 2025 Dr. Ligia Mcrae DO Attending physician Active Start: February 02, 2025 End: February 02, 2025 Dr. Ligia Mcrae DO Referring Provider Active Start: February 02, 2025 End: February 02, 2025 Team Status: Active Member Role/Relationship Status Dates Dr. Ligia Mcrae DO Primary care physician Active Start: February 17, 2025 Dr. Jorge Hyatt MD Attending physician Active Start: February 17, 2025 Dr. Jorge Hyatt MD Referring Provider Active Start: February 17, 2025 Team Status: Inactive Member Role/Relationship Status Dates Dr. Ligia Mcrae DO Primary care physician Active Start: February 24, 2025 End: February 24, 2025 Dr. Jorge Hyatt MD Attending physician Active Start: February 24, 2025 End: February 24, 2025 Dr. 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 [employer] provides no warranty or guarantee of the accuracy or completeness of information in this document.
[2025-04-03 10:53] LABS: Cholesterol 211 mg/dL (<=200); Low Density Lipoprotein Calc. 152 mg/dL; Triglycerides 135 mg/dL; Very Low Density Lipoprotein 27 mg/dL (5-40); cholesterol:hdl ratio screen 6.13
== END | disposition home or self-care (01) ==
LOC: MTLAB 07:09
PROVIDERS: PCP Family Medicine; Referring Provider Family Medicine; Visit Provider Family Medicine
DX: I25.10 Atherosclerotic heart disease of native coronary artery without angina pectoris (principal)
CPT/HCPCS: 36415; 80061

== ENCOUNTER → 2025-04-06 | Outpatient (CLI) | payer MEDICARE, SELFPAY ==
--- OUTSIDE RECORDS SUMMARY | 2025-04-06 06:08 | XMS RPT_ITS | CCD ---
Author Organization [facility] Care Team Providers Care Family Therapist Name Role Phone BRAEDEN AUGUST Admitting Unavailable EVELYNE, CHIN S Referring Unavailable LAHORRAOSCAR Attending Unavailable TESS, GERSON F Consulting Unavailable ORLANDO JACOBS (BUSINESS PROCESS ENGINEER) Attending Unavailable LIGIA MCRAE Referring Unavailable ORLANDO JACOBS (BUSINESS PROCESS ENGINEER) Attending Unavailable LIGIA MCRAE Referring Unavailable OFUNGWBRAEDEN [...] [phone] Dr. Ligia Mcrae Referring Provider [phone] Oscar Winkler Attending Provider [phone] Dr. Ligia Mcrae Primary Care Provider [phone] Dr. Ligia Mcrae Referring Provider [phone] Dr. Jarad Krishnan Attending Provider [phone] Ligia Mcrae Primary Care Provider [phone] Dr. Ligia Mcrae Referring Provider [phone] Dr. Chin Stubbs Attending Provider [phone] Dr. Chin Stubbs Referring Provider [phone] Dr. Chin Stubbs Other Provider [facility] PUBLIC RELATIONS SUPERVISOR, PUBLIC RELATIONS SUPERVISORAdán Brunner Attending Provider [phone] Jamila ROD Dr. Ligia Primary Care Provider Jamila ROD, Dr. Lerma Referring Provider [phone] Peterson NAVARRETE, Dr. Moore Attending Provider [phone] Jamila ROD, Dr. Lerma Attending Provider [phone] Jorge Hyatt MD Unavailable NONE, NONE Unavailable Unavailable Jamila DO, Ligia A Unavailable Jamila ROD, Dr. Lerma Primary Care Physician Jamila ROD, Dr. Lerma Attending Physician Jamila ROD, Dr. Lerma Referring Provider Olena NAVARRETE, Dr. Jorge Addison Attending Physician Olena NAVARRETE, Dr. Jorge Addison Referring Provider Olena NAVARRETE, Dr. Jorge Addison Attending Physician Olena NAVARRETE, Dr. Jorge Addison Referring Provider Oscar Winkler Attending Unavailable Jamila, Ligia Primary Care Unavailable Jamila, Ligia Referring Unavailable Jamila, Ligia Primary Care Unavailable Demiter, Carlos Attending Unavailable Jamila, Ligia Referring Unavailable Jamila, Ligia Primary Care Unavailable Jamila, Ligia Attending Unavailable Jamila, Ligia Referring Unavailable Jamila, Ligia Referring Unavailable Oscar Winkler Attending Unavailable Jamila, Ligia Primary Care Unavailable Jorge Hyatt Attending Unavailable Jorge Hyatt Referring Unavailable Jamila, Ligia Primary Care Unavailable Jamila, Ligia Primary Care Unavailable Demiter, Carlos Attending Unavailable Demiter, Carlos Referring Unavailable Jamila, Ligia Primary Care Unavailable Jamila, Ligia Attending Unavailable Jamila, Ligia Referring Unavailable Demiter, Carlos Referring Unavailable Jamila, Ligia Primary Care Unavailable Demiter, Carlos Attending Unavailable Jamila, Ligia Primary Care Unavailable Jamila, Ligia Attending Unavailable Jamila, Ligia Referring Unavailable Allergies Allergy Classification Reported Allergen(s) Allergy Type Date of Onset Reaction(s) Facility (1 source) atorvastatin Drug Allergy 03-30-2025 [facility] Rep[facility] (1 source) Pravastatin Drug Allergy 03-30-2025 [facility] (1 source) rosuvastatin Drug Allergy 03-30-2025 [facility] Medications Current Medications Medication Drug [...] by mouth once daily active Judit Odom 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 Performed By: #### L 500.4100 ####[facility] [address] [place], [address] Cholesterol in HDL [Mass/Vol] 34 mg/dL Low [facility] Comment on above: Result Comment: [place] onal Cholesterol Education Program (NCEP) guidelines: <40 mg/dL: Low HDL-cholesterol (major risk factor for CHD) >= 60 mg/dL: High HDL-cholesterol (negative risk factor for CHD) HDL-cholesterol is affected by a number of factors, e.g. smoking, exercise, hormones, sex and age. Performed By: #### L 500.4100 ####[facility] [address] [facility] [address] Cholesterol in LDL [Mass/Vol] 152 mg/dL Normal [facility] Comment on above: Result Comment: Bord pnrdtt=374-587 mg/dL Higher Napt=758 mg/dL or greater Schmitt Equation 2020 for LDL-C Performed By: #### L 500.4100 ####[facility] [address] [place], [address] Cholesterol in VLDL [Mass/Vol] 27 mg/dL Normal 5-40 [facility] Comment on above: Performed By: #### L 500.4100 ####[facility] [address] [place], [address] Triglyceride [Mass/Vol] 135 mg/dL Normal [facility] Comment on above: Result Comment: The drugs N-Acetylcysteine and Metamizole may falsely depress this assay. Normal range: <150 mg/dL Borderline High: 150-199 mg/dL High: 200-499 mg/dL Very High: >500 mg/dL Performed By: #### L 500.4100 ####[facility] [address] [place], [address] Cardiology Visit Reporton Cardiology Visit Report [facility] 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 Normal [facility] Lipid Profileon 03-24-2025 CHOL:HDL 7.05 Normal [facility] Comment on above: Performed By: #### L 500.4100, L500.3400 #### [facility] [address] [place], [address] Cholesterol [Mass/Vol] 258 mg/dL High <=200 [facility] Comment on above: Result Comment: Chol esterol level, Desirable <200 mg/dL Borderline high cholesterol 200-239 mg/dL High cholesterol >=240 mg/dL Recommendations of the NCEP Adult Treatment Panel for the following risk-cutoff thresholds for the [place] population. Performed By: #### L 500.4100, L500.3400 #### [facility] [address] [place], [address] Cholesterol in HDL [Mass/Vol] 37 mg/dL Low [facility] Comment on above: Result Comment: [place] onal Cholesterol Education Program (NCEP) guidelines: <40 mg/dL: Low HDL-cholesterol (major risk factor for CHD) >= 60 mg/dL: High HDL-cholesterol (negative risk factor for CHD) HDL-cholesterol is affected by a number of factors, e.g. smoking, exercise, hormones, sex and age. Performed By: #### L 500.4100, L500.3400 #### [facility] [address] [place], [address] Cholesterol in LDL [Mass/Vol] 179 mg/dL Normal [facility] Comment on above: Result Comment: Bord adjabw=188-097 mg/dL Higher Gcqq=159 mg/dL or greater Schmitt Equation 2020 for LDL-C Performed By: #### L 500.4100, L500.3400 #### [facility] [address] [place], [address] Cholesterol in VLDL [Mass/Vol] 44 mg/dL High 5-40 [facility] Comment on above: Performed By: #### L 500.4100, L500.3400 #### [facility] [address] [place], [address] Triglyceride [Mass/Vol] 222 mg/dL High [facility] Comment on above: Result Comment: The drugs N-Acetylcysteine and Metamizole may falsely depress this assay. Normal range: <150 mg/dL Borderline High: 150-199 mg/dL High: 200-499 mg/dL Very High: >500 mg/dL Performed By: #### L 500.4100, L500.3400 #### [facility] [address] [place], [address] Liver Profileon 03-24-2025 Albumin [Mass/Vol] 4.0 g/dL Normal 3.4-4.8 [facility] Comment on above: Performed By: #### L 500.4100, L500.3400 #### [facility] [address] [place], [address] ALK PHOS 49 U/L Normal 40-129 [facility] Comment on above: Performed By: #### L 500.4100, L500.3400 #### [facility] [address] [place], [address] ALT [Catalytic activity/Vol] 26 U/L Normal <=46 [facility] Comment on above: Performed By: #### L 500.4100, L500.3400 #### [facility] [address] [place], [address] AST [Catalytic activity/Vol] 27 U/L Normal <=37 [facility] Comment on above: Performed By: #### L 500.4100, L500.3400 #### [facility] [address] [place], [address] Bilirubin [Mass/Vol] 0.54 mg/dL Normal 0.00-1.30 [facility] Comment on above: Performed By: #### L 500.4100, L500.3400 #### [facility] [address] [place], [address] Bilirubin.direct [Mass/Vol] 0.15 mg/dL Normal 0.00-0.30 [facility] Comment on above: Performed By: #### L 500.4100, L500.3400 #### [facility] [address] [place], [address] Globulin (S) [Mass/Vol] 3.1 g/dL Normal 2.2-4.2 [facility] Comment on above: Performed By: #### L 500.4100, L500.3400 #### [facility] [address] [place], [address] T PROT 7.1 g/dL Normal 5.9-8.4 [facility] Comment on above: Performed By: #### L 500.4100, L500.3400 #### [facility] [address] [place], [address] Relevant diagnostic tests/la boratory data Narrativeon 03-16-2025 Fall risk assessment no [facility] [employer] Work Phone: MEDS REVIEW Done [facility] Work Phone: MEDS REVIEWD Medications reviewed without changes [employer] Work Phone: PT D/C Summary (1)on 025 PT D/C Summary (1) [facility] Physical Therapy [address] [place] [address] / REHABILITATION SERVICES DISCHARGE SUMMARY MR#: [id number] Acct: [id number] Name: KRYSTIAN CHILD Rep #: [id number] : 1945 79 From: Jl Bedoya PT. MD Duncan, OCS Referring Dr.: Dr. Jorge Hyatt MD Status: R EG RCR [facility] 03/25/18 SELF PAY INSURANCE Discharge Summary [...] please feel free to call me at [phone]. Thank you for the referral of this patient. Sincerely, William Hayden PT, Cert T, OCS Balance/Gait/Functional tests Balance/Special Test Scores Oswestry Low Back Score: 18 02/27/25 1137 CC: Dr. Jorge Hyatt MD; Dr. Ligia Mcrae, JLA Signed Normal [facility] Inital Evaluation (1) - PTon 02-17-2025 Inital Evaluation (1) - PT [facility] [address] [place] [address] / REHABILITATION SERVICES INITIAL EVALUATION MR#: [id number] Acct: [id number] Name: KRYSTIAN CHILD Rep #: [id number] : 1945 79 From: William Hayden PT, Cert. T, OCS Referring Dr.: Dr. Jogre Hyatt MD Status: R EG RCR Insurance: [facility] 03/25/18 SELF PAY INSURANCE Patient's Visit Information Visit Information Visit Information: KRYSTIAN CHILD is a 79 year old M referred to Physical Therapy by Dr. Jorge Hyatt MD with a diagnosis of SPINAL STENOSIS LUMBAR REGION WITH NEUROGENIC ,SPONDYLOTHESIS LUMAR. Date of Evaluation: 02/17/25 Physical Therapist: William Hayden PT, Cert T, OCS Visit Plan Frequency: 2x /Week Duration: [...] to be FAXED BACK to us at [phone] for Medicare purposes. For Medicare only, by signing this I certify the plan of care. Please let me know if there are questions or concerns regarding this plan of care. Physician Signature: Da (more content not included)... Normal [facility] Relevant diagnostic tests/la boratory data Narrativeon 02-16-2025 Fall risk assessment no [facility] [employer] Work Phone: MEDS REVIEW Done [employer] Work Phone: MEDS REVIEWD Medications reviewed with changes [facility] Work Phone: MRI HX of the lumbar spine on 02/02/2025 at [facility], [place], [place] [facility] Work Phone: Magnetic resonance imaging r eportOrdered By: Mike Andujar on 02-05-2025 Study report [facility] Imaging Services [address] [place] [address] Spine Lumbar (Routine) MR#: [id number] Acct: [id number] Name: KRYSTIAN CHILD Rep #: [id number] : 1945 M 79 From: Lion Andujar MD PCP: Dr. Ligia Mcrae DO Status: REG CLI Study:Spine Lumbar (Routine) Date of Exam: 02/02/25 Exam# [id number] Ordering Dr: Ligia Mcrae DO PROCEDURE: SPINE [...] Negative. Negative for Modic changes. Facet Joints: Lzrm-hf-qivkdtzj bilateral facet joint hypertrophy. Neural foramina: Mild bilateral neural foraminal narrowing Spinal Canal: Mild left subarticular zone narrowing. Negative for central spinalnarrowing. L3-4: Vertebral bodies: Anterior osteophyte formation. Disk Space: Disc desiccation. Moderate loss of disc height. Schmorl's node superior endplate of L4 with mild edematous changes. Hemangioma of L4. Facet Joints: Qxqjllvq-lw-daeugk bilateral facet joint hypertrophy. Neural foramina: Severe [...] L3-L4 and L4-5 as above. Reading Location: DHQ-MONNKIN-XS CC: Dr. Ligia Mcrae, DO ~ Encoding Machine Operator: Signed [facility] Spine Lumbar (Routine)on Spine Lumbar (Routine) [facility] Imaging Services [address] [place] [address] Spine Lumbar (Routine) MR#: [id number] Acct: [id number] Name: KRYSTIAN CHILD Rep #: [id number] : 1945 M 79 From: Mike Andujar MD PCP: Dr. Ligia Mcrae DO Status: REG CLI Study: Spine Lumbar (Routine) Date of Exam: 02/02/25 Exam# [id number] Ordering Dr: Ligia Mcrae DO PROCEDURE: SPINE [...] Negative. Negative for Modic changes. Facet Joints: Olrf-dt-asjjfset bilateral facet joint hypertrophy. Neural foramina: Mild bilateral neural foraminal narrowing Spinal Canal: Mild left subarticular zone narrowing. Negative for central spinal narrowing. L3-4: Vertebral bodies: Anterior osteophyte formation. Disk Space: Disc desiccation. Moderate loss of disc height. Schmorl's node superior endplate of L4 with mild edematous changes. Hemangioma of L4. Facet Joints: Mccnckeu-mg-mamfsc bilateral facet joint hypertrophy. Neural foramina: Severe [...] L3-L4 and L4-5 as above. Reading Location: UOD-SUXLATG-KK CC: Dr. Ligia Mcrae DO Encoding Machine Operator: Signed Normal [facility] Surgery Specimen Level Mckenna 11-23-2024 Surgery Specimen Level IV Patient Age/Sex Location Account Attending Physician KRYSTIAN CHILD /M LABSPEC [id number] Dr. Ligia Mcrae DO Specimen: [id number] Received: 11/23/24 Status: SHAMIKA Cash Num: [id number] Spec Type: Lesion Subm Dr: Dr. Ligia Mcrae, [facility] OPERATION: Excision skin lesion, left forearm PRE-OP [...] name and date of . Designated as " L forearm" is a 2.5 x 1.2 cm focally [...] cassettes, to include the in cassette A1. PR 11/24/2024 CPT:80078 Patient Age/Sex Location Account Attending Physician KRYSTIAN CHILD 79/M LABSPEC [id number] Dr. Ligia Mcrae, DO Signed (signature on file) Dr. Yohana Reeves DO 12/07/241925 Normal [facility] Comment on above: Performed By: #### P SUIV ####[facility] [address] [place], [place], [address] Oncology Visit Reporton 09-22 Oncology Visit Report [facility] [place] [facility] [address] [place] [address] OFFICE VISIT Date of Service: 10/05/24 1443 MR#: [id number] Acct: [id number] Name: KRYSTIAN CHILD Rep #: [id number] : 1945 From: Oscar Winkler MD Age/Sex: 78/M Location: [facility] Status: Signed HPI Subjective Date of Service 10/05/24 Chief Complaint F/u for lupus anticoagulant positivity. History of Present Illness 78y.o.man was admitted in January 2019 at [facility] for pneumonia. He also had R middle lobe density. CT chest in March 2019 was normal. He was found to have abnormal/increase PTT which has persisted since that admission so was referred for evaluation. He denied bleeding gums, clotting, bleeding into soft tissue, joint bleeding or family history of bleeding. He is on observation. Had repeat blood work and comes for follow up. [facility] Medical History (Updated 10/05/24 @ 15:[address] Oscar Winkler MD) Back pain Wears glasses Arthritis Former smoker Leg cramps History of stress test ( 06/16/18) Hx of echocardiogram ( 06/26/18) Hx of lupus anticoagulant disorder TIA (transient ischemic attack) (07/2005) Wound cellulitis after surgery Essential (primary) hypertension Atherosclerosis of coronary artery of inupiat heart without angina pectoris Scoliosis Osteoarthritis DDD [...] 1512 Date (more content not included)... Normal [facility] Lupus Anticoagulant Compon 0 - aPTT Coag (Bld) [Time] 92.4 s High 0.0-43.5 [facility] Comment on above: Performed By: #### L 4500.0100 ####[facility] [address] [place], [address] aPTT Coag (Bld) [Time] 82.6 s High 0.0-40.5 [facility] Comment on above: Performed By: #### L 4500.0100 ####[facility] [address] [place], [address] DILUTE PT (dPT) 69.6 sec High 0.0-47.6 [facility] Comment on above: Performed By: #### L 4500.0100 ####[facility] [address] [place], [address] dPT Conf. Ratio 1.27 Ratio Normal 0.00-1.34 [facility] Comment on above: Performed By: #### L 4500.0100 ####[facility] [address] [place], [address] DRVVT 61.5 sec Abnormal 0.0-47.0 [facility] Comment on above: Performed By: #### L 4500.0100 ####[facility] [address] [place], [address] DRVVT CONFIRM 1.4 ratio Abnormal 0.8-1.2 [facility] Comment on above: Performed By: #### L 4500.0100 ####[facility] [address] [place], [address] dRVVT MIX 59.8 sec Abnormal 0.0-40.4 [facility] Comment on above: Performed By: #### L 4500.0100 ####[facility] [address] [place], [place], [address] HEX PHAS PHOSPH 49 sec Abnormal 0-11 [facility] Comment on above: Performed By: #### L 4500.0100 ####[facility] [address] [place], [address] Interpretation Comment: Normal . [facility] Comment on above: Result Comment: Resu [...] beta-2 glycoprotein 1 antibody testing. Performed at: [address] [id number] Wool Spotter: Kim Brito MD, Phone: [phone] Performed By: #### L 4500.0100 ####[facility] [address] [place], [address] THROMBIN TIME 19.2 sec Normal 0.0-23.0 [facility] Comment on above: Performed By: #### L 4500.0100 ####[facility] [address] [place], [place], [address] Absolute lymphocyte countOrd ered By: Oscar Winkler on 09-22-2024 Lymphocytes Auto (Unsp spec) [#/Vol] 1.86 10*3/uL 0.83-4.51 [facility] Absolute neutrophil countOrd ered By: Oscar Winkler on 09-22-2024 Neutrophils (Bld) [#/Vol] 4.5 10*3/uL 2.0-7.7 [facility] Activated partial thrombopla stin time (aPTT) in platelet poor plasma by coagulation aOrdered By: Oscar Winkler on 09-22-2024 aPTT Coag (PPP) [Time] 53.8 s High 24.1-36.2 [facility] Anion gap in Serum or Plasma Ordered By: Oscar Winkler on 09-22-2024 Anion gap [Moles/Vol] 12 mmol/L 5-15 [facility] Automated lymphocyte count a s percentage of total leukocytesOrdered By: Oscar Winkler on 09-22-2024 Lymphocytes/100 WBC Auto (Unsp spec) 26.1 % 19- [facility] BUN/creatinine ratioOrdered By: [facility] on 09-22-2024 Urea nitrogen/Creatinine [Mass ratio] 19.8 mg/mg 10- [facility] Basophil percentageOrdered B y: Oscar Winkler on 09-22-2024 Basophils/100 WBC (Bld) 0.3 % 0-1 [facility] Bilirubin, totalOrdered By: Oscar Winkler on 09-22-2024 Bilirubin [Mass/Vol] 0.34 mg/dL 0.00-1.30 [facility] CBC W/Diff, Automatedon Absolute Lymph 1.86 X10 3/uL Normal 0.83-4.51 [facility] Comment on above: Performed By: #### L 300.3900, L300.4310, L500.4050, L100.0100 #### [facility] [address] [place], [address] Absolute Neut 4.5 X10 3/uL Normal 2.0-7.7 [facility] Comment on above: Performed By: #### L 300.3900, L300.4310, L500.4050, L100.0100 #### [facility] [address] [place], [address] Basophils/100 WBC (Bld) 0.3 % Normal 0-1 [facility] Comment on above: Performed By: #### L 300.3900, L300.4310, L500.4050, L100.0100 #### [facility] [address] [place], [address] Eosinophils/100 WBC (Bld) 2.4 % Normal 0-5 [facility] Comment on above: Performed By: #### L 300.3900, L300.4310, L500.4050, L100.0100 #### [facility] [address] [place], [address] Erythrocyte distribution width (RBC) [Ratio] 13.7 % Normal 11.6-14.6 [facility] Comment on above: Performed By: #### L 300.3900, L300.4310, L500.4050, L100.0100 #### [facility] [address] [place], [address] Hematocrit (Bld) [Volume fraction] 42.3 % Normal 40-54 [facility] Comment on above: Performed By: #### L 300.3900, L300.4310, L500.4050, L100.0100 #### [facility] [address] [place], [address] Hemoglobin (Bld) [Mass/Vol] 14.6 g/dL Normal 13.0-16.5 [facility] Comment on above: Performed By: #### L 300.3900, L300.4310, L500.4050, L100.0100 #### [facility] [address] [place], [address] IG% 0.300 Normal 0.0-0.9 [facility] Comment on above: Result Comment: IG% - Immature Granulocytes (promyelocytes, myelocytes and metamyelocytes) > 1% indicates that a LEFT SHIFT is Present. Performed By: #### L 300.3900, L300.4310, L500.4050, L100.0100 #### [facility] [address] [place], [address] Lymphocytes/100 WBC (Bld) 26.1 % Normal 19-41 [facility] Comment on above: Performed By: #### L 300.3900, L300.4310, L500.4050, L100.0100 #### [facility] [address] [place], [address] MCH (RBC) [Entitic mass] 32.0 pg Normal 27.0-32.0 [facility] Comment on above: Performed By: #### L 300.3900, L300.4310, L500.4050, L100.0100 #### [facility] [address] [place], [address] MCHC (RBC) [Mass/Vol] 34.5 g/dL Normal 32-36 [facility] Comment on above: Performed By: #### L 300.3900, L300.4310, L500.4050, L100.0100 #### [facility] [address] [place], [address] MCV (RBC) [Entitic vol] 92.8 fL Normal 80-94 [facility] Comment on above: Performed By: #### L 300.3900, L300.4310, L500.4050, L100.0100 #### [facility] [address] [place], [address] Monocytes/100 WBC (Bld) 8.1 % Normal 0-10 [facility] Comment on above: Performed By: #### L 300.3900, L300.4310, L500.4050, L100.0100 #### [facility] [address] [place], [address] Neutrophils/100 WBC (Bld) 62.8 % Normal 47-70 [facility] Comment on above: Performed By: #### L 300.3900, L300.4310, L500.4050, L100.0100 #### [facility] [address] [place], [address] Nucleated RBC (Bld) [#/Vol] 0 10*3/uL Normal 0-5 [facility] Comment on above: Performed By: #### L 300.3900, L300.4310, L500.4050, L100.0100 #### [facility] [address] [place], [address] Platelet mean volume (Bld) [Entitic vol] 10.8 fL Normal 6.2-12.0 [facility] Comment on above: Performed By: #### L 300.3900, L300.4310, L500.4050, L100.0100 #### [facility] [address] [place], [address] Platelets (Bld) [#/Vol] 165 10*3/uL Normal 150-450 [facility] Comment on above: Performed By: #### L 300.3900, L300.4310, L500.4050, L100.0100 #### [facility] [address] [place], [address] RBC (Bld) [#/Vol] 4.56 10*6/uL Low 4.6-6.2 [facility] Comment on above: Performed By: #### L 300.3900, L300.4310, L500.4050, L100.0100 #### [facility] [address] [place], [address] RDW SD 46.4 fl High 35.1-43.9 [facility] Comment on above: Performed By: #### L 300.3900, L300.4310, L500.4050, L100.0100 #### [facility] [address] [place], [address] WBC (Bld) [#/Vol] 7.1 10*3/uL Normal 4.4-11.0 [facility] Comment on above: Performed By: #### L 300.3900, L300.4310, L500.4050, L100.0100 #### [facility] [address] [place], [address] Carbon dioxide, total [Moles /volume] in Central venous bloodOrdered By: Oscar Winkler on 09-22-2024 CO2 [Moles/Vol] 22.4 mmol/L 21.0-32.0 [facility] Chloride assayOrdered By: Karla Winkler on 09-22-2024 Chloride [Moles/Vol] 105 mmol/L 98-108 [facility] Comprehensive Metabolic Prof ilon 09-22-2024 Albumin [Mass/Vol] 4.1 g/dL Normal 3.4-4.8 [facility] Comment on above: Performed By: #### L 300.3900, L300.4310, L500.4050, L100.0100 #### [facility] [address] [place], [address] Albumin/Globulin [Mass ratio] 1.5 {ratio} Normal 0.9-2.4 [facility] Comment on above: Performed By: #### L 300.3900, L300.4310, L500.4050, L100.0100 #### [facility] [address] [place], [address] ALK PHOS 58 U/L Normal 40-129 [facility] Comment on above: Performed By: #### L 300.3900, L300.4310, L500.4050, L100.0100 #### [facility] [address] [place], [address] ALT [Catalytic activity/Vol] 29 U/L Normal <=46 [facility] Comment on above: Performed By: #### L 300.3900, L300.4310, L500.4050, L100.0100 #### [facility] [address] [place], [address] AST [Catalytic activity/Vol] 26 U/L Normal <=37 [facility] Comment on above: Performed By: #### L 300.3900, L300.4310, L500.4050, L100.0100 #### [facility] [address] [place], [address] Bilirubin [Mass/Vol] 0.34 mg/dL Normal 0.00-1.30 [facility] Comment on above: Performed By: #### L 300.3900, L300.4310, L500.4050, L100.0100 #### [facility] [address] [place], [address] BUN/CRE 19.8 RATIO Normal 10-20 [facility] Comment on above: Performed By: #### L 300.3900, L300.4310, L500.4050, L100.0100 #### [facility] [address] [place], [address] Calcium [Mass/Vol] 9.3 mg/dL Normal 7.6-11.0 [facility] Comment on above: Performed By: #### L 300.3900, L300.4310, L500.4050, L100.0100 #### [facility] [address] [place], [address] Chloride [Moles/Vol] 105 mmol/L Normal 98-108 [facility] Comment on above: Performed By: #### L 300.3900, L300.4310, L500.4050, L100.0100 #### [facility] [address] [place], [address] CO2 [Moles/Vol] 22.4 mmol/L Normal 21.0-32.0 [facility] Comment on above: Performed By: #### L 300.3900, L300.4310, L500.4050, L100.0100 #### [facility] [address] [place], [address] Creatinine [Mass/Vol] 1.42 mg/dL High 0.70-1.20 [facility] Comment on above: Performed By: #### L 300.3900, L300.4310, L500.4050, L100.0100 #### [facility] [address] [place], [address] ECRCL 42.84 ml/min Low 50-250 [facility] Comment on above: Performed By: #### L 300.3900, L300.4310, L500.4050, L100.0100 #### [facility] [address] [place], [address] GAP 12 Normal 5-15 [facility] Comment on above: Performed By: #### L 300.3900, L300.4310, L500.4050, L100.0100 #### [facility] [address] [place], [address] GFR/1.73 sq M.predicted among non-blacks MDRD (S/P/Bld) [Vol rate/Area] 50 mL/min/{1.73_m2} Low >60 [facility] Comment on above: Result Comment: mL/m in/1.73m2 CKD-EPI Creatinine Equation (2020) Performed By: #### L 300.3900, L300.4310, L500.4050, L100.0100 #### [facility] [address] [place], [address] Globulin (S) [Mass/Vol] 2.7 g/dL Normal 2.2-4.2 [facility] Comment on above: Performed By: #### L 300.3900, L300.4310, L500.4050, L100.0100 #### [facility] [address] [place], [address] Glucose [Mass/Vol] 123 mg/dL High 70-99 [facility] Comment on above: Performed By: #### L 300.3900, L300.4310, L500.4050, L100.0100 #### [facility] [address] [place], [address] Potassium [Moles/Vol] 4.5 mmol/L Normal 3.3-5.1 [facility] [place] Comment on above: Performed By: #### L 300.3900, L300.4310, L500.4050, L100.0100 #### [facility] [address] [place], [address] Sodium [Moles/Vol] 139 mmol/L Normal 133-145 [facility] Comment on above: Performed By: #### L 300.3900, L300.4310, L500.4050, L100.0100 #### [facility] [address] [place], [address] T PROT 6.8 g/dL Normal 5.9-8.4 [facility] Comment on above: Performed By: #### L 300.3900, L300.4310, L500.4050, L100.0100 #### [facility] [address] [place], [address] Urea nitrogen [Mass/Vol] 28 mg/dL High 4-19 [facility] Comment on above: Performed By: #### L 300.3900, L300.4310, L500.4050, L100.0100 #### [facility] [address] [place], [address] DRVVT confirmOrdered By: Ruddy Winkler on 09-22-2024 dRVVT actual/normal Coag (PPP) [Relative time] 1.4 ratio High 0.8-1.2 [facility] Dilute Venkata's viper venom timeOrdered By: Oscar Winkler on 09-22-2024 dRVVT Coag (PPP) [Time] 61.5 s High 0.0-47.0 [facility] dRVVT Coag (PPP) [Time] 59.8 s High 0.0-40.4 [facility] Eosinophil percentageOrdered By: Oscar Winkler on 09-22-2024 Eosinophils/100 WBC (Bld) 2.4 % 0-5 [facility] Erythrocyte distribution wid th ratioOrdered By: Oscar Winkler on 09-22-2024 Erythrocyte distribution width (RBC) [Ratio] 13.7 % 11.6-14.6 [facility] Erythrocyte distribution wid th standard deviationOrdered By: Oscar Winkler on 09-22-2024 Erythrocyte distribution width (RBC) [Ratio] 46.4 fl High 35.1-43.9 [facility] Glomerular filtration rate ( GFR) estimation/1.73 sq m using serum, plasma, or whole bOrdered By: Oscar Winkler on 09-22-2024 GFR/1.73 sq M.predicted among non-blacks MDRD (S/P/Bld) [Vol rate/Area] 50 mL/min/{1.73_m2} Low >60 [facility] Comment on above: mL/min/1.73m2 CKD-EP I Creatinine Equation (2020) Hematocrit Auto (Bld) [Volum e fraction]Ordered By: Oscar Winkler on 09-22-2024 Hematocrit (Bld) [Volume fraction] 42.3 % 40-54 [facility] Hemoglobin measurementOrdere d By: Oscar Winkler on 09-22-2024 Hemoglobin (Bld) [Mass/Vol] 14.6 g/dL 13.0-16.5 [facility] Immature granulocytes/100 WB C Auto (Bld)Ordered By: Oscar Winkler on 09-22-2024 Immature granulocytes/100 WBC (Bld) 0.300 % 0.0-0.9 [facility] Comment on above: IG% - Immature Granu locytes (promyelocytes, myelocytes and metamyelocytes) > 1% indicates that a LEFT SHIFT is Present. International normalized rat io (INR) calculationOrdered By: Oscar Winkler on 09-22-2024 INR Coag (Bld) [Relative time] 1.0 {INR} [facility] - Chemistry and C hemistry - challengeOrdered By: Oscar Winkler on 09-22-2024 AST [Catalytic activity/Vol] 26 U/L <38 [facility] MCV (mean corpuscular volume ) determinationOrdered By: Oscar Winkler on 09-22-2024 MCV (RBC) [Entitic vol] 92.8 fL 80-94 [facility] Mean corpuscular hemoglobin (MCH) determinationOrdered By: Oscar Winkler on 09-22-2024 MCH (RBC) [Entitic mass] 32.0 pg 27.0-32.0 [facility] Mean corpuscular hemoglobin concentration (MCHC) determinationOrdered By: Oscar Winkler on 09-22-2024 MCHC (RBC) [Mass/Vol] 34.5 g/dL 32-36 [facility] Mean platelet volume determi nationOrdered By: Oscar Winkler on 09-22-2024 Platelet mean volume (Bld) [Entitic vol] 10.8 fL 6.2-12.0 [facility] Monocyte percentageOrdered B y: Oscar Winkler on 09-22-2024 Monocytes/100 WBC (Bld) 8.1 % 0-10 [facility] Neutrophil percentageOrdered By: Oscar Winkler on 09-22-2024 Neutrophils/100 WBC (Bld) 62.8 % 47-70 [facility] Nucleated red blood cell per centageOrdered By: Oscar Winkler on 09-22-2024 Nucleated RBC/100 WBC (Bld) [Ratio] 0 % 0-5 [facility] Partial Thromboplast Timeon 09-22-2024 aPTT Coag (Bld) [Time] 53.8 s High 24.1-36.2 [facility] Comment on above: Performed By: #### L 300.3900, L300.4310, L500.4050, L100.0100 #### [facility] [address] [facility] [place], [address] Plasma lupus anticoagulant d etection by hexagonal phase phospholipid neutralizationOrdered By: Oscar Winkler on 09-22-2024 aPTT W excess hexagonal phase phospholipid Ql (PPP) 49 sec High 0-11 [facility] Platelet countOrdered By: Karla Winkler on 09-22-2024 Platelets (Bld) [#/Vol] 165 10*3/uL 150-450 [facility] Potassium measurement (mass/ volume)Ordered By: Oscar Winkler on 09-22-2024 Potassium (Unsp spec) [Mass/Vol] 4.5 mmol/L 3.3-5.1 [facility] Prothrombin Time w/INRon INR Coag (PPP) [Relative time] 1.0 {INR} Normal [facility] Comment on above: Performed By: #### L 300.3900, L300.4310, L500.4050, L100.0100 #### [facility] [address] [place], [address] PT Coag (PPP) [Time] 13.6 s Normal 11.7-14.9 [facility] Comment on above: Performed By: #### L 300.3900, L300.4310, L500.4050, L100.0100 #### [facility] [address] [place], [address] Prothrombin timeOrdered By: Oscar Winkler on 09-22-2024 PT Coag (PPP) [Time] 13.6 s 11.7-14.9 [facility] RBC Auto (Bld) [#/Vol]Ordere d By: Oscar Winkler on 09-22-2024 RBC (Bld) [#/Vol] 4.56 10*6/uL Low 4.6-6.2 [facility] Serum creatinine measurement (mass/volume)Ordered By: Oscar Winkler on 09-22-2024 Creatinine [Mass/Vol] 1.42 mg/dL High 0.70-1.20 [facility] Serum globulin measurementOr dered By: Oscar Winkler on 09-22-2024 Globulin (S) [Mass/Vol] 2.7 g/dL 2.2-4.2 [facility] Serum glucose measurement (m ass/volume)Ordered By: Oscar Winkler on 09-22-2024 Glucose [Mass/Vol] 123 mg/dL High 70-99 [facility] Serum or plasma alanine mills otransferase (ALT) measurementOrdered By: Oscar Winkler on 09-22-2024 ALT [Catalytic activity/Vol] 29 U/L <47 [facility] Serum or plasma albumin delisa urement (mass/volume)Ordered By: Oscar Winkler on 09-22-2024 Albumin [Mass/Vol] 4.1 g/dL 3.4-4.8 [facility] Serum or plasma albumin/glob ulin mass ratioOrdered By: Oscar Winkler on 09-22-2024 Albumin/Globulin [Mass ratio] 1.5 {ratio} 0.9-2.4 [facility] Serum or plasma alkaline edgardo sphatase measurementOrdered By: Oscar Winkler on 09-22-2024 ALP [Catalytic activity/Vol] 58 U/L 40-129 [facility] Serum or plasma calcium delisa urement (mass/volume)Ordered By: Oscar Winkler on 09-22-2024 Calcium [Mass/Vol] 9.3 mg/dL 7.6-11.0 [facility] Serum or plasma urea nitroge n measurement (mass/volume)Ordered By: Oscar Winkler on 09-22-2024 Urea nitrogen [Mass/Vol] 28 mg/dL High 4-19 [facility] Sodium levelOrdered By: Rubens Winkler on 09-22-2024 Sodium [Moles/Vol] 139 mmol/L 133-145 [facility] Thrombin timeOrdered By: Ruddy Winkler on 09-22-2024 Thrombin time Coag (PPP) [Time] 19.2 sec 0.0-23.0 [facility] Total proteinOrdered By: Ruddy Winkler on 09-22-2024 Protein [Mass/Vol] 6.8 g/dL 5.9-8.4 [facility] White blood cell (WBC) count Ordered By: Oscar Winkler on 09-22-2024 WBC (Bld) [#/Vol] 7.1 10*3/uL 4.4-11.0 [facility] Lactate dehydrogenase (LDH) measurementOrdered By: Oscar Winkler on 09-30-2023 LDH [Catalytic activity/Vol] 163 U/L 87-241 [facility] Absolute lymphocyte countOrd ered By: Dr. Mcrae on 07-31-2022 Lymphocytes Auto (Unsp spec) [#/Vol] 1.04 10*3/uL 0.83-4.51 [facility] Basophil percentageOrdered B y: Dr. Mcrae on 07-31-2022 Basophils/100 WBC (Bld) 0.1 % 0-1 [facility] Eosinophils/100 WBC (Bld) 1.2 % 0-5 [facility] Neutrophils (Bld) [#/Vol] 5.3 10*3/uL 2.0-7.7 [facility] Neutrophils/100 WBC (Bld) 70.8 % 47-70 [facility] WBC (Bld) [#/Vol] 7.5 10*3/uL 4.4-11.0 [facility] Blood erythrocytes count (nu mber/volume)Ordered By: Dr. Mcrae on 07-31-2022 RBC (Bld) [#/Vol] 4.36 10*6/uL 4.6-6.2 [facility] Blood hemoglobin measurement (mass/volume)Ordered By: Dr. Mcrae on 07-31-2022 Hemoglobin (Bld) [Mass/Vol] 13.9 g/dL 13.0-16.5 [facility] Blood lymphocytes/100 leukoc ytesOrdered By: Dr. Mcrae on 07-31-2022 Lymphocytes/100 WBC (Bld) 13.9 % 19-41 [facility] Blood monocytes/100 leukocyt esOrdered By: Dr. Mcrae on 07-31-2022 Monocytes/100 WBC (Bld) 13.6 % 0-10 [facility] Blood platelet mean volumeOr dered By: Dr. Mcrae on 07-31-2022 Platelet mean volume (Bld) [Entitic vol] 11.8 fL 6.2-12.0 [facility] COVID-19 virus antigen assay Ordered By: Dr. Mcrae on 07-31-2022 SARS-CoV-2 (COVID-19) Ag IA.rapid Ql (Resp) [facility] Determination of erythrocyte mean corpuscular volume (MCV)Ordered By: Dr. Mcrae on 07-31-2022 MCV (RBC) [Entitic vol] 95.9 fL 80-94 [facility] Hematocrit Auto (Bld) [Volum e fraction]Ordered By: Dr. Mcrae on 07-31-2022 Hematocrit (Bld) [Volume fraction] 41.8 % 40-54 [facility] - Hematology and Cell countsOrdered By: Dr. Mcrae on 07-31-2022 Erythrocyte distribution width (RBC) [Entitic vol] 47.3 fL 35.1-43.9 [facility] Erythrocyte distribution width (RBC) [Ratio] 13.4 % 11.6-14.6 [facility] Immature granulocytes/100 WBC (Bld) 0.400 % 0.0-0.9 [facility] Comment on above: IG% - Immature Granu locytes (promyelocytes, myelocytes and metamyelocytes) > 1% indicates that a LEFT SHIFT is Present. MCH (RBC) [Entitic mass] 31.9 pg 27.0-32.0 [facility] Nucleated RBC/100 WBC (Bld) [Ratio] 0 % 0-5 [facility] MCHC Auto (RBC) [Mass/Vol]Or dered By: Dr. Mcrae on 07-31-2022 MCHC (RBC) [Mass/Vol] 33.3 g/dL 32-36 [facility] Platelets bldOrdered By: Dr. Mcrae on 07-31-2022 Platelets (Bld) [#/Vol] 126 10*3/uL 150-450 [facility] Absolute lymphocyte counton 09-30-2021 Lymphocytes Auto (Unsp spec) [#/Vol] 1.54 10*3/uL 0.83-4.51 [facility] Work Phone: Basophil percentageon 2021 Basophils/100 WBC (Bld) 0.2 % 0-1 [facility] Work Phone: Bilirubin [Mass/Vol] 0.40 mg/dL 0.20-1.00 [facility] Work Phone: Comment on above: For patients on eltr ombopag therapy, use of Dimension [place] TBIL is not recommended. Chloride [Moles/Vol] 108 mmol/L 98-107 [facility] Work Phone: Eosinophils/100 WBC (Bld) 3.8 % 0-5 [facility] Work Phone: Glucose [Mass/Vol] 100 mg/dL 74-106 [facility] Work Phone: Comment on above: Fasting Glucose resu lt from 100 to 125 mg/dL suggests IMPAIRED HOMEOSTASIS per A.D.A. criteria. Neutrophils (Bld) [#/Vol] 2.4 10*3/uL 2.0-7.7 [facility] Work Phone: Neutrophils/100 WBC (Bld) 52.8 % 47-70 [facility] Work Phone: Potassium [Moles/Vol] 4.3 mmol/L 3.5-5.1 [facility] Work Phone: Protein [Mass/Vol] 7.2 g/dL 6.4-8.2 [facility] Work Phone: Sodium [Moles/Vol] 140 mmol/L 136-145 [facility] Work Phone: WBC (Bld) [#/Vol] 4.5 10*3/uL 4.4-11.0 [facility] Work Phone: Blood erythrocytes count (nu mber/volume)on 09-30-2021 RBC (Bld) [#/Vol] 4.61 10*6/uL 4.6-6.2 [facility] Work Phone: Blood hemoglobin measurement (mass/volume)on 09-30-2021 Hemoglobin (Bld) [Mass/Vol] 15.0 g/dL 13.0-16.5 [facility] Work Phone: Blood lymphocytes/100 leukoc yteson 09-30-2021 Lymphocytes/100 WBC (Bld) 34.3 % 19-41 [facility] Work Phone: Blood monocytes/100 leukocyt eson 09-30-2021 Monocytes/100 WBC (Bld) 8.7 % 0-10 [facility] Work Phone: Blood platelet mean volumeon 09-30-2021 Platelet mean volume (Bld) [Entitic vol] 10.4 fL 6.2-12.0 [facility] Work Phone: Determination of erythrocyte mean corpuscular volume (MCV)on 09-30-2021 MCV (RBC) [Entitic vol] 93.9 fL 80-94 [facility] Work Phone: [phone] Dilute Venkata's viper venom timeon 09-30-2021 dRVVT Coag (PPP) [Time] 74.2 s 0.0-47.0 [facility] Work Phone: [phone] Hematocrit Auto (Bld) [Volum e fraction]on 09-30-2021 Hematocrit (Bld) [Volume fraction] 43.3 % 40-54 [facility] Work Phone: [phone] INR in Blood by Coagulation assayon 09-30-2021 INR Coag (Bld) [Relative time] 1.0 {INR} [facility] Work Phone: [phone] Laboratory - Chemistry and C hemistry - challengeon 09-30-2021 ALP [Catalytic activity/Vol] 50 U/L 45-117 [facility] Work Phone: [phone] ALT [Catalytic activity/Vol] 23 U/L 16-61 [facility] Work Phone: [phone] CO2 [Moles/Vol] 26.0 mmol/L 21.0-32.0 [facility] Work Phone: [phone] Globulin (S) [Mass/Vol] 3.7 g/dL 2.2-4.2 [facility] Work Phone: [phone] Urea nitrogen/Creatinine [Mass ratio] 19.6 mg/mg 10-20 [facility] Work Phone: [phone] Laboratory - Coagulationon 0 09-30-2021 aPTT Coag (Bld) [Time] 65.7 s 24.1-36.2 [facility] Work Phone: [phone] PT Coag (PPP) [Time] 13.2 s 11.7-14.[address] [facility] [facility] Work Phone: [phone] Laboratory - Hematology and Cell countson 09-30-2021 Erythrocyte distribution width (RBC) [Entitic vol] 45.0 fL 35.1-43.9 [facility] Work Phone: Erythrocyte distribution width (RBC) [Ratio] 13.2 % 11.6-14.6 [facility] Work Phone: Immature granulocytes/100 WBC (Bld) 0.200 % 0.0-0.9 [facility] Work Phone: Comment on above: IG% - Immature Granu locytes (promyelocytes, myelocytes and metamyelocytes) > 1% indicates that a LEFT SHIFT is Present. MCH (RBC) [Entitic mass] 32.5 pg 27.0-32.0 [facility] Work Phone: Nucleated RBC/100 WBC (Bld) [Ratio] 0 % 0-5 [facility] Work Phone: MCHC Auto (RBC) [Mass/Vol]on 09-30-2021 MCHC (RBC) [Mass/Vol] 34.6 g/dL 32-36 [facility] [place] Work Phone: No Panel Informationon 09-30 Estimated Creatinine Clearance Calc 57.03 ml/min [facility] Work Phone: Estimated GFR (MDRD) Amer 82 mL/min >60 [facility] Work Phone: Comment on above: GFR Calc Estimated GFR (MDRD) Non-Af Amer 67 mL/min >60 [facility] Work Phone: Comment on above: Non- GFR Calc Hexagonal Phase Phospholipid 24 sec 0-11 [facility] Work Phone: Platelets bldon 09-30-2021 Platelets (Bld) [#/Vol] 170 10*3/uL 150-450 [facility] Work Phone: Serum or plasma albumin delisa urement (mass/volume)on 09-30-2021 Albumin [Mass/Vol] 3.5 g/dL 3.2-5.0 [facility] Work Phone: Serum or plasma albumin/glob ulin mass ratioon 09-30-2021 Albumin/Globulin [Mass ratio] 0.9 {ratio} 0.9-2.4 [facility] Work Phone: Serum or plasma calcium delisa urement (mass/volume)on 09-30-2021 Calcium [Mass/Vol] 8.7 mg/dL 8.5-10.1 [facility] Work Phone: Serum or plasma creatinine m easurement (mass/volume)on 09-30-2021 Creatinine [Mass/Vol] 1.12 mg/dL 0.70-1.30 [facility] [place] Work Phone: Comment on above: The validity of the calculated GFR & GFRAA in patients over 70 years has not been determined. Clinical correlation is essential. Serum or plasma urea nitroge n measurement (mass/volume)on 09-30-2021 Urea nitrogen [Mass/Vol] 22 mg/dL 7-18 [facility] Work Phone: [phone] Thin prep Papanicolaou smear with manual screeningon 09-30-2021 Thin prep Papanicolaou smear with manual screening 16 U/L 15-37 [facility] Work Phone: [phone] Thin prep Papanicolaou smear with manual screening 6 5-15 [facility] Work Phone: [phone] Thin prep Papanicolaou smear with manual screening 170 U/L 87-241 [facility] Work Phone: [phone] Thin prep Papanicolaou smear with manual screening 80.4 sec 0.0-47.6 [facility] Work Phone: [phone] Thin prep Papanicolaou smear with manual screening 1.39 Ratio 0.00-1.34 [facility] Work Phone: [phone] Thin prep Papanicolaou smear with manual screening 87.4 sec 0.0-51.9 [facility] Work Phone: [phone] Thin prep Papanicolaou smear with manual screening 83.3 sec 0.0-48.9 [facility] Work Phone: [phone] Thin prep Papanicolaou smear with manual screening Comment: . [facility] Work Phone: Comment on above: Results [...] and beta-2 glycoprotein 1 antibody testing.Performed at: [facility] [id number] Director: Kim Brito MD, Phone: [phone] Thrombin time in platelet po or plasmaon 09-30-2021 Thrombin time Coag (PPP) [Time] 18.4 sec 0.0-23.0 [facility] Work Phone: Basophil percentageon 2020 Cholesterol [Mass/Vol] 232 mg/dL High <200 [facility] Comment on above: <200 mg/dL Desirable 200-240 mg/dL Borderline >240 mg/dL High Risk Triglyceride [Mass/Vol] 220 mg/dL High <199 [facility] Comment on above: The drugs N-Acetylcy steine and Metamizole may falsely depress this assay.Serum Triglycerides Reference Interval Normal <150 mg/dL Borderline high 150 - 199 mg/dL High 200 - 499 mg/dL Very High > or = 500 mg/dL No Panel Informationon 10-03 Prostate Specific Antigen Screen 0.55 ng/mL 0.00-4.00 [facility] Comment on above: This test was perfor med using the TPSA assay method for the[facility] chemistry system. Values obtained with differentassay methods cannot be used interchangably.When changing PSA assays in the course of monitoring apatient, additional sequential testing should be carriedout to confirm baseline values. Serum or plasma cholesterol in HDL measurement (mass/volume)on 05-12-2021 Cholesterol in HDL [Mass/Vol] 36 mg/dL Low >40 [facility] Comment on above: The drugs N-Acetylcy steine and Metamizole may falsely depress this assay. Reference Range HDL <40 mg/dL Low HDL Cholesterol HDL >or= 60 mg/dL High HDL Cholesterol Serum or plasma cholesterol in VLDL measurement (mass/volume)on 10-03-2020 Cholesterol in VLDL [Mass/Vol] 44 mg/dL High 5-40 [facility] Serum or plasma low density lipoprotein (LDL) cholesterol measurement (mass/volume)on 10-03-2020 Cholesterol in LDL [Mass/Vol] 152 mg/dL High 0-130 [facility] Laboratory - Chemistry and C hemistry - challengeon 10-12-2019 Cobalamin (Vitamin B12) [Mass/Vol] 251 pg/mL 211-911 [facility] Erythrocyte sedimentation ra shantelle 03-31-2019 ESR (Bld) [Velocity] 29 mm/h High 0-20 [facility] Hemoglobin in reticulocytes (mass per reticulocyte)on 03-31-2019 Hemoglobin (Reticulocytes) [Entitic mass] 38.1 pg High 30-35 [facility] Iron measurement (mass/mass) on 03-31-2019 Iron (Unsp spec) [Mass/Mass] 107 ug/dL 65-175 [facility] - Chemistry and C hemistry - challengeon 03-31-2019 T4 [Mass/Vol] 8.4 ug/dL 4.5-12.1 [facility] No Panel Informationon 03-31 Addendum Document Comment . [facility] Comment on above: Protein electrophore sis scan will follow via computer,mail, or asphalt mixer delivery.Performed at: [facility] [id number] Director: Kim Brito MD, Phone: [phone] at: - [facility] [id number] Director: Josiah Patiño PhD, Phone: [phone] Cugvo-7-Tkouydnof (ISAMAR) 0.6 g/dL 0.4-1.0 [facility] Beta-Globulins (ISAMAR) 1.0 g/dL 0.7-1.3 [facility] D-Dimer Quantitative (PE/DVT) 0.73 FEU/ug/m High 0.27-0.49 [facility] Comment on above: D-Dimer ELEVATED (>0 .49): Additional studies and clinicalassessments are indicated to conclude diagnosis of:Deep Vein Thrombosis (DVT) or Pulmonary Embolism (PE)CRITICAL VALUE VERIFIED. CALLED TO NAEEM RN03/31/19 0944 Shannen Grayson.RESULTS READ BACK BY NAEEM . Fibrinogen 382 mg/dl 203-444 [facility] Folate 16.00 ng/mL 3.1-55.4 [facility] Free [place] Light Chains, Quant 27.5 mg/L High 3.3-19.4 [facility] Free [place]/Lambda Light Chain Ratio 1.94 High 0.26-1.65 [facility] Comment on above: Performed at: [facility] [place] [id number] Director: Josiah Patiño PhD, Phone: [phone] Free [place] Light Chains, Quant 14.2 mg/L 5.7-26.3 [facility] Immature Reticulocyte Fraction 5.40 % 3.00-15.90 [facility] Immunofixation Screen Comment . [facility] [place] Comment on above: No monoclonality det ected. Miscellaneous Test See comment [facility] Comment on above: TEST RESULT UNITS RE [...] interpretation is provided for theassays performed at [facility] only. InterpretiveSynopsis:A lupus anticoagulant is detected. This [...] antigen and activity,depending on clinical scenario.Please contact [facility] if furtherclarification is needed. Jaxson Martinez M.D. [id number] VIII Activity % No valid result obtained.Factor [...] 1:1 Saline 39.6 sec TESTING PERFORMED AT [facility]. ORIGINAL REPORT ON FILE IN LAB CONTAINS ADDITIONAL TEST SITE INFORMATION. Reticulocyte Count 0.82 % 0.5-1.5 [facility] Thyroid Stimulating Hormone (TSH) 1.34 uIU/mL 0.358-3.74 [facility] Total Iron Binding Capacity 258 ug/dL 250-450 [facility] Protein electrophoresis pane callie 03-31-2019 Protein [Mass/Vol] 6.2 g/dL 6.0-8.5 [facility] Serum gyqoe-6-qiedlnse measu rement by electrophoresison 03-31-2019 Alpha 1 globulin Elph [Mass/Vol] 0.2 g/dL 0.0-0.4 [facility] Serum or plasma IgA measurem ent (mass/volume)on 03-31-2019 IgA [Mass/Vol] 183 mg/dL 61-437 [facility] Serum or plasma IgG measurem ent (mass/volume)on 03-31-2019 IgG [Mass/Vol] 1058 mg/dL 700-1600 [facility] Serum or plasma IgM measurem ent (mass/volume)on 03-31-2019 IgM [Mass/Vol] 120 mg/dL 15-143 [facility] Serum or plasma albumin delisa urement (moles/volume)on 03-31-2019 Albumin [Moles/Vol] 3.3 g/dL 2.9-4.4 [facility] Serum or plasma ferritin imer surement (mass/volume)on 03-31-2019 Ferritin [Mass/Vol] 504 ng/mL High 26-388 [facility] Serum or plasma gamma globul in measurement by electrophoresis (mass/volume)on 03-31-2019 Gamma globulin Elph [Mass/Vol] 1.1 g/dL 0.4-1.8 [facility] Serum or plasma iron saturat ion measurement (mass fraction)on 03-31-2019 Iron saturation [Mass fraction] 41.5 % 15.0-55.0 [facility] Serum or plasma uric acid me asurement (mass/volume)on 03-31-2019 Urate [Mass/Vol] 6.2 mg/dL 3.5-7.2 [facility] Comment on above: The drugs N-Acetylcy steine and Metamizole may falsely depress this assay. Thin prep Papanicolaou smear with manual screeningon 03-31-2019 Thin prep Papanicolaou smear with manual screening See comment [facility] Work Phone: Comment on above: NOT OBSERVED Thin prep Papanicolaou smear with manual screening 1.2 0.7-1.7 [facility] Work Phone: Thrombin time in platelet po or plasmaon 03-31-2019 Thrombin time Coag (PPP) [Time] Not Reportable [facility] CNOVon 08-10-2018 CNOV Office Visit (ARMANI VOGEL) -- DANYELLKRYSTIAN Azael ([id number]) 1945 M NFR Date Time Provider Department 08/10/18 10:30 AM ORLANDO JACOBS During your visit today, we recorded the following information about you: Pulse Respiration Blood pressure Weight 72/minute 20/minute 138/64 101.6 kg Height 1.778 m Orlando Jacobs APRN.CNP 08/10/2018 11:52 AM Signed HPI:Krystian Addison Danyell is a 72 year old male that [...] GRAFT(S) 07/01/2018 - COLONOSCOP W/ OR W/O [facility] SPEC Colonoscopy - COLONOSCOP W/ OR W/O [facility] SPEC 10/31/05 Repeat in -2010 - MOHS [...] 138/64 Pulse 72 Resp 20 Ht 5' 10" (1.78m) Wt 224 lb (101.6kg) SpO2 96% [...] on. 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 - Please see your beater machine operator regularly. They will take over medication management. - Please feel free to call us if you have any post-operative concerns. Thank you for coming to see me today!! Orlando Jacobs APRN.BUSINESS PROCESS ENGINEER Referring Provider: SELF [[id number]] Allergies As of [...] help with this. - Please see your beater machine operator regularly. They will take over medication management. [...] by ORLANDO JACOBS CNP on 08/10/18 Normal [facility] PROGRESSon 08-10-2018 Protein mass conc HNO ID: [id number] Author: Orlando Jacobs Service: ? Author Type: [...] GRAFT(S) 07/01/2018 - COLONOSCOP W/ OR W/O [facility] SPEC Colonoscopy - COLONOSCOP W/ OR [...] 138/64 Pulse 72 Resp 20 Ht 5' 10" (1.78m) Wt 224 lb (101.6kg) SpO2 96% [...] on. he should follow up with his beater machine operator and PCP as scheduled, and only needs to be seen here on a as needed basis. Thanks. Electronically signed by Orlando Jacobs APRN.CNP on August 10, 2018, 10:53 AM Normal [facility] CNOVon 07-13-2018 [facility] Office Visit (ARMANI VOGEL) -- KRYSTIAN CHILD ([id number]) 1945 M NFR Date Time Provider Department [...] was discharged on 07/06/2018. Today, Krystian Addison Danyell, reports: he is eating better, pain is [...] GRAFT(S) 07/01/2018 - COLONOSCOP W/ OR W/O [facility] SPEC Colonoscopy - COLONOSCOP W/ OR W/O [facility] SPEC 10/31/05 Repeat in -2010 - [...] 122/60 Pulse 80 Resp 16 Ht 5' 10.5" (1.79m) Wt 225 lb (102.1kg) SpO2 99% [...] 2V FRONTAL/LAT - CARDIAC REHAB II OUTPT ([place], [place]) 2. Wound cellulitis after surgery - [...] with your primary care physician and your beater machine operator in 4-6 weeks -Please return to cardiac surgery in 3-4 weeks with a chest x-ray done before the appointment -Restriction remain: No lifting more than 10 lbs and No driving. -Cardiac rehab has been consulted. You will be able to begin cardiac rehab after your next visit with us. [facility]iac [facility]hab . -Feel free to call us if you have questions or concerns Thank you for coming to see me today! 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] Other Visit Diagnosis:Wound cellulitis after surgery [T81.49XA] Order(s):cephALEXin (KEFLEX) 500 mg capsuleTake 1 capsule by mouth four times daily for 7 days.Disp: 28 capsuleRfl: 0 XR CHEST 2V FRONTAL/LAT [[id number]] Order #: [id number] FUTURE CARDIAC REHAB II OUTPT ([place], [place]) [[id number]] Order #: [id number]: 1 Prescriptions as of 07/13/2018 Sig: FUROSEMIDE [...] with your primary care physician and your beater machine operator in 4-6 weeks -Please return to cardiac surgery in 3-4 weeks with a chest x-ray done before the appointment -Restriction remain: No lifting more than 10 lbs and No driving. -Cardiac rehab has been consulted. You will be able to begin cardiac rehab after your next visit with us. [facility]iac [facility]hab . -Feel free to [...] Status:Closed by ORLANDO JACOBS CNP on 07/13/18 [facility] PROGRESSon 07-13-2018 Protein mass conc HNO ID: [id number] Author: Orlando Jacobs Service: (none) Author Type: [...] GRAFT(S) 07/01/2018 - COLONOSCOP W/ OR W/O [facility] SPEC Colonoscopy - COLONOSCOP W/ OR W/O [facility] SPEC 10/31/05 Repeat in - MOHS [...] 122/60 Pulse 80 Resp 16 Ht 5' 10.5" (1.79m) Wt 225 lb (102.1kg) SpO2 99% [...] 2V FRONTAL/LAT - CARDIAC REHAB II OUTPT ([place]) 2. Wound cellulitis after surgery - ICD9: [...] on July 13, 2018, 10:21 AM Normal [facility] CNPAiram 07-08-2018 ANIA Telephone (AKPRAD) -- CHEKOKRYSTIAN Painter ([id number]) 1945 M NFR Date Time Provider Department [...] for lasix for the next month. Orlando Mouck, LOCK AND DAM OPERATOR.BUSINESS PROCESS ENGINEER Allergies As of Date: 07/08/2018 (No Known [...] Status:Closed by ORLANDO JACOBS CNP on 07/08/18 [facility] ALLIED HEALTHon 07-06-2018 ALLIED HEALTH HNO ID: [id number] Author: Cielo DrakeRn) MARIUSZ Bee Service: Home Care Services Author Type: Registered Nurse Type: Allied Health Filed: 07/06/2018 2:10 PM Note Text: LAUNCH MANAGER NOTE SERVICE DATE: 07/06/2018 SERVICE TIME: 2:09 PM Discharge: Aware of Discharge home today. Physician order placed for Home Care Services. Home Care Agency: [facility] Start of care date: 07/07/18--07/08/18 Supplies ordered: N/A Patient/Family agree to discharge plan: Yes SIGNATURE: Cielo Bee RN PATIENT NAME: Krystian Addison Ptak DATE: July 06, 2018 TIME: 2:09 PM [facility] CASE MANAGEMon 07-06-2018 CASE MANAGEM HNO ID: [id number] Author: Keisha Tamayo RN Service: Care Management Author Type: Registered Nurse Type: Care Mgt Progress Note Filed: 07/06/2018 11:20 AM Note Text: CARE MANAGEMENT DISCHARGE NOTE SERVICE DATE: 07/06/2018 SERVICE TIME: 11:19 AM LOS: 11 days Admission Date: 06/25/2018 DISCHARGE ARRANGEMENT (list agency and phone number) Home Home Care - Nursing and PT Provider: PRINCESSS CAREGIVER ASSESSMENT: Caregiver is ready, willing and able to meet the patient's needs as recommended by the inter-professional team? Yes Patient's transition needs and plan for meeting these needs: home with family and [facility]- [facility] Does the patient have an acute stroke diagnosis, or has the patient had a stroke during this admission? No HANDOFF COMMUNICATION: [facility] notified of pts d/c and able to accept pt. TRANSPORTATION ARRANGEMENTS: Car Family ADDITIONAL CONTACT RESOURCES: SIGNATURE: Keisha Tamayo RN PATIENT NAME: Krystian Addison Ptak DATE: July 06, 2018 TIME: 11:19 AM PAGER/CONTACT #: [phone] [facility] CHEST 2 VIEWSon 07-06-2018 CHEST 2 VIEWS Performed at [facility] APPROVED BY: Neri Matthews MD EXAMINATION: CHEST [...] overall improved aeration of the lungs. Normal [facility] PLAN OF CAREon 07-06-2018 PLAN OF CARE HNO ID: [id number] Author: Larissa Lopez (Seconds Grader) Service: (none) Author Type: (none) Type: Plan of Care Filed: 07/06/2018 1:33 PM Note Text: PHARMACY BEDSIDE DELIVERY SERVICE Patient Name: Krystian Child The marked outpatient medications were Filled at: [facility] and delivered to the patient's bedside to [...] mg tablet Generic drug: clopidogrel Larissa Lopez (Sonendo) PAGER: Phone extension [phone] or call: July 06, 2018 1:32 PM [facility] PLAN OF CARE HNO ID: [id number] Author: Janiya Yoder (Sonendo) Service: (none) Author Type: (none) Type: Plan of Care Filed: 07/06/2018 11:52 AM Note Text: MIG WELDER BEDSIDE DELIVERY SURVEY 1. Patient to use [facility] Bedside Delivery - YES Insurance Information as follows: 2. Insurance card on file - YES 3. Credit card for payment - N/A . Please call [phone] upon discharge. We have prescriptions for Aspirin 81mg two daily Furosemide 40mg one daily Metoprolol tartrate 50mg one every 12 hours Atorvastatin 40mg one daily Senna 8.6mg 1 twice daily gavilax 1 capful daily Oxycodone 5 mg Total of $33.07 [facility] PLAN OF CARE HNO ID: [id number] Author: Ilana Odom (Pharmacist) Service: Pharmacy Author Type: Pharmacist Type: Plan of Care Filed: 07/06/2018 11:08 AM Note Text: Pharmacy Discharge Medication Service: This patient has elected to receive their discharge prescriptions through the [facility] Bedside Prescription Delivery program. The prescriptions are currently being processed. A follow-up note will be entered once the prescriptions have been filled and delivered to the patient. Please contact me with any questions or updates to the patient's discharge medications. ILANA ODOM PHARMACIST DCT Contact Info: [phone] [facility] PT EDon 07-06-2018 PT ED HNO ID: [id number] Author: Consuelo Li (Pharmacist) Service: Pharmacy Author [...] call to the physician. Patient elected pharmacy tufter operator service. CONSUELO LI, PHARMACIST July 06, 2018 11:36 AM Medication [...] These medications were sent to e- [facility] [place] [id number] - [address] [facility] - [phone] [id number] [place] [address] ? aspirin, enteric coated 81 mg EC [...] IR 5 mg immediate release tablet Normal [facility] ALLIED HEALTHon 07-05-2018 ALLIED HEALTH HNO ID: [id number] Author: Jelani (Residential Property Tax Appraiser) GAVINO Arora Service: Cardiac Rehab Author Type: [...] Rehabilitation Brochure Signature: Jelani Arora RRT Pager: [phone] Date: July 05, 2018 Time: 10:51 AM [facility] CASE MANAGEMon 07-05-2018 CASE MANAGEM HNO ID: [id number] Author: Keisha Tamayo RN Service: Care Management [...] 05, 2018 TIME: 1:44 PM PAGER/CONTACT #: [phone] [facility] NUTRITIONon 07-05-2018 NUTRITION HNO ID: [id number] Author: Judit Rivas Service: Cardiac Rehab Author [...] July 05, 2018 TIME: 2:03 PM PAGER: [phone] [facility] PROCEDUREon 07-05-2018 Protein mass conc HNO ID: [id number] Author: Orlando Jacobs Service: Cardiac Surgery Author [...] None Specimens Sent: None SIGNATURE: Orlando Jacobs APRN.BUSINESS PROCESS ENGINEER PATIENT NAME: Krystian Child DATE: July 05, 2018 TIME: 9:52 AM PAGER/CONTACT #: [phone] [facility] PROGRESSon 07-05-2018 Protein mass conc HNO ID: [id number] Author: Orlando Jacobs Service: Cardiac Surgery Author [...] cardiac catheterization 06/25/[address] Stubbs at [facility]. This is in the setting of TIA - like symptoms x2 episodes, (CT with evidence of lacunar infarct). He denies any thyroid disease, lung disease (ex-smoker quit 30+ years ago), DM, liver disease, abnormal bleeding or clotting. Interval events: Post operative recovery was unremarkable, he transferred to [facility] on POD2. On POD 3 he was noted to have paraphimosis which was reduced with out difficulty. Today, Mr Danyell reports his is doing quite well. Ambulating, eating some. Wants BM. Discussed going home. Objective Admission Weight: 100.2 kg (220 lb 12.8 oz) BP 108/66 Pulse 91 Temp 36.6 ?C (97.9 ?F) (Oral) Resp 16 Ht 177.8 cm (5' 10") Wt 107.2 kg (236 lb 4.8 oz) [...] at the caval atrial junction. ? Multiple residential monitor leads overlying over the left chest. [...] 05, 2018 TIME: 8:52 AM PAGER/CONTACT #: [phone] Normal [facility] Basic Panelon 07-04-2018 Creatinine mass conc 0.99 mg/dL Normal 0.67-1.17 [facility] Comment on above: Performed By: #### G FR #### [facility] [address] [place], [place] [address] Anion gap molar conc 9 mmol/L Normal 8-16 [facility] Comment on above: Performed By: #### G FR #### [facility] [address] [place], [place] [address] CO2 molar conc 27 mmol/L Normal 21-32 [facility] Comment on above: Performed By: #### G FR #### [facility] [address] [place] [address] Urea nitrogen mass conc 28 mg/dL High 7-18 [facility] Comment on above: Performed By: #### G FR #### [facility] [address] [place] [address] Calcium mass conc 7.9 mg/dL Low 8.5-10.1 [facility] Comment on above: Performed By: #### G FR #### [facility] [address] [place] [address] Glucose mass conc 115 mg/dL High 70-99 [facility] Comment on above: Performed By: #### G FR #### [facility] [address] [place] [address] Chloride molar conc 105 mmol/L Normal 98-107 [facility] Comment on above: Performed By: #### G FR #### [facility] [address] [place] [address] Potassium molar conc 3.8 mmol/L Normal 3.5-5.1 [facility] Comment on above: Performed By: #### G FR #### [facility] [address] [place] [address] Sodium molar conc 137 mmol/L Normal 136-145 [facility] Comment on above: Performed By: #### G FR #### [facility] [address] [place] [address] CHEST 1 VIEWon 07-04-2018 CHEST 1 VIEW Performed at [facility] APPROVED BY: Ousmane Avila MD EXAM TITLE: CHEST 1 VIEW DATE: 07/04/2018 06:39 INDICATION: Status post coronary artery bypass graft. COMPARISON: Several recent chest x-rays the most recent dated 07/03/2018. Portable frontal view of the chest shows right internal jugular central line with tip at the caval atrial junction. Multiple residential monitor leads overlying over the left chest. [...] overlying chest monitor leads. Correlate clinically. Normal [facility] CONSULTon 07-04-2018 CONSULT HNO ID: [id number] Author: Gerson Matthews Service: Urology Author Type: [...] - APPENDECTOMY - COLONOSCOP W/ OR W/O [facility] SPEC Colonoscopy - COLONOSCOP W/ OR W/O [facility] SPEC 10/31/05 Repeat in - MOHS [...] 7.324 (L) 7.350 - 7.450 Final Specific [place], Ur Date Value Ref Range Status 06/26/2018 [...] Child DATE: 07/03/2018 TIME: 11:48 PM PAGER: [phone] I saw and evaluated the patient. Discussed with the resident and agree with resident's findings and plan as documented in the resident's note. Pt dong well this AM, comfortable and swelling resolved. Will sign off Gerson Matthews MD Normal [facility] Hemogramon 07-04-2018 Erythrocyte distribution width Ratio (RBC) 13.4 % Normal 11.6-14.4 [facility] Comment on above: Performed By: #### G FR #### [facility] [address] [place] [address] Hematocrit Volume Fraction (Bld) 30.5 % Low 40.1-51.0 [facility] Comment on above: Performed By: #### G FR #### [facility] [address] [place] [address] Hemoglobin mass conc (Bld) 10.3 g/dL Low 13.7-17.5 [facility] Comment on above: Performed By: #### G FR #### [facility] [address] [place] [address] MCH Entitic mass (RBC) 32.0 pg Normal 25.7-32.2 [facility] Comment on above: Performed By: #### G FR #### [facility] [address] [place] [address] MCHC mass conc (RBC) 33.8 % Normal 32.3-36.5 [facility] Comment on above: Performed By: #### G FR #### [facility] [address] [place] [address] MCV Entitic volume (RBC) 94.7 fL Normal 83.2-95.6 [facility] Comment on above: Performed By: #### G FR #### [facility] [address] [place] [address] Platelet mean volume Entitic volume (Bld) 11.0 fL Normal 8.7-12.0 [facility] Comment on above: Performed By: #### G FR #### [facility] [address] [place] [address] Platelets #/vol (Bld) 161 thou/cmm Normal 141-[address] [facility] Comment on above: Performed By: #### G FR #### [facility] [address] [place] [address] RBC #/vol (Bld) 3.22 mil/cmm Low 4.63-6.08 [facility] Comment on above: Performed By: #### G FR #### [facility] [address] [place] [address] RDW SD 46.0 fl High 36.1-45.8 [facility] Comment on above: Performed By: #### G FR #### [facility] [address] [place] [address] WBC #/vol (Bld) 8.69 thou/cmm Normal 4.23-9.07 [facility] Comment on above: Performed By: #### G FR #### [facility] [address] [place] [address] MDRD GFRon 07-04-2018 GFR/1.73 sq M predicted among non-blacks MDRD vol rate/area (S/P/Bld) mL/min/{1.73_m2} Normal >60mL/min/1 .73m2 [facility] Comment on above: Result Comment: If t he patient is , multiply the result by 1.210. Performed By: #### G FR #### [facility] [address] [place] [address] PROGRESSon 07-04-2018 Protein mass conc HNO ID: [id number] Author: Dani Miller Service: Thoracic Surgery Author Type: Physician Type: Progress Notes Filed: 07/04/2018 11:34 AM Note Text: For [place] POD #3 S-seen with PA. Patient just walked and now standing to void. Feels better O-labs noted, cxr as expected. A-Improving P-as ordered. Normal [facility] Basic Panelon 07-03-2018 Creatinine mass conc 1.14 mg/dL Normal 0.67-1.17 [facility] Comment on above: Performed By: #### G FR #### [place] [address] Anion gap molar conc 10 mmol/L Normal 8-16 [facility] Comment on above: Performed By: #### G FR #### [facility] [address] [place] [address] CO2 molar conc 25 mmol/L Normal 21-32 [facility] Comment on above: Performed By: #### G FR #### [facility] [address] [place] [address] Glucose mass conc 134 mg/dL High 70-99 [facility] Comment on above: Performed By: #### G FR #### [facility] [address] [place] [address] Urea nitrogen mass conc 27 mg/dL High 7-18 [facility] Comment on above: Performed By: #### G FR #### [facility] [address] [place] [address] Calcium mass conc 8.1 mg/dL Low 8.5-10.1 [facility] Comment on above: Performed By: #### G FR #### [facility] [address] [place] [address] Chloride molar conc 108 mmol/L High 98-107 [facility] Comment on above: Performed By: #### G FR #### [facility] [address] [place], [place] [address] Potassium molar conc 4.5 mmol/L Normal 3.5-5.1 [facility] Comment on above: Performed By: #### G FR #### [facility] [address] [place], [place] [address] Sodium molar conc 138 mmol/L Normal 136-145 [facility] Comment on above: Performed By: #### G FR #### [facility] [address] [place] [id number] CHEST 1 VIEWon 07-03-2018 CHEST 1 VIEW Performed at [facility] APPROVED BY: Delvin Altamirano MD EXAM TITLE: [...] bibasilar atelectasis left greater than right. Normal [facility] Glucose Meteron 07-03-2018 Glucose mass conc 135 mg/dL High 70-99 [facility] Comment on above: Result Comment: MARIUSZ N OTIFIED Performed By: #### P 14 #### [facility] [address] [place] [id number] Hemogramon 07-03-2018 Erythrocyte distribution width Ratio (RBC) 14.0 % Normal 11.6-14.4 [facility] Comment on above: Performed By: #### L IPD2 #### [facility] [address] [place] [address] Hematocrit Volume Fraction (Bld) 32.4 % Low 40.1-51.0 [facility] Comment on above: Performed By: #### L IPD2 #### [facility] [address] [place] [address] Hemoglobin mass conc (Bld) 10.5 g/dL Low 13.7-17.5 [facility] Comment on above: Performed By: #### L IPD2 #### [place] [address] MCH Entitic mass (RBC) 31.6 pg Normal 25.7-32.2 [facility] Comment on above: Performed By: #### L IPD2 #### [facility] [address] [place] [address] MCHC mass conc (RBC) 32.4 % Normal 32.3-36.5 [facility] Comment on above: Performed By: #### L IPD2 #### [facility] [address] [place] [address] MCV Entitic volume (RBC) 97.6 fL High 83.2-95.6 [facility] Comment on above: Performed By: #### L IPD2 #### [facility] [address] [place] [address] Platelet mean volume Entitic volume (Bld) 11.1 fL Normal 8.7-12.0 [facility] Comment on above: Performed By: #### L IPD2 #### [facility] [address] [place] [address] Platelets #/vol (Bld) 138 thou/cmm Low 141-[address] [facility] Comment on above: Performed By: #### L IPD2 #### [facility] [address] [place] [address] RBC #/vol (Bld) 3.32 mil/cmm Low 4.63-6.08 [facility] Comment on above: Performed By: #### L IPD2 #### [facility] [address] [place] [place] [address] RDW SD 49.6 fl High 36.1-45.8 [facility] Comment on above: Performed By: #### L IPD2 #### [facility] [address] [place] [address] WBC #/vol (Bld) 10.71 thou/cmm High 4.23-9.07 [facility] Comment on above: Performed By: #### L IPD2 #### [facility] [address] [place] [address] Magnesium Bloodon 07-03-2018 Magnesium mass conc 2.8 mg/dL High 1.6-2.6 [facility] Comment on above: Performed By: #### G FR #### [place] [address] NURSING PROGon 07-03-2018 Protein mass conc HNO ID: [id number] Author: Paulina (Rn) Mike RN Service: Nursing Author Type: Registered Nurse Type: Nursing Progress Note Filed: 07/03/2018 5:02 PM Note Text: Transferred to 4237 [facility] Protein mass conc HNO ID: [id number] Author: Paulina DrakeRn) MARIUSZ Mckeon Service: Nursing Author Type: Registered Nurse Type: Nursing Progress Note Filed: 07/03/2018 4:42 PM Note Text: Report called to 4200 RN [facility] Protein mass conc HNO ID: [id number] Author: Sivakumar DrakeRn) MARIUSZ [place] Service: (none) Author Type: Registered Nurse Type: Nursing Progress Note Filed: 07/03/2018 7:04 PM Note Text: MARIUSZ Shaver summoned to pt bedside to assist with retracted foreskin. Pt c/o pain with attempt to return foreskin to normal position; edema noted to glans/head of penis and unable to be returned. RN notified pt's primary RN Isabelle and summoned PA Julia to identify concern for paraphimosis. PA at bedside ~1400 to inspect; urology paged. Normal [facility] PROGRESSon 07-03-2018 Protein mass conc HNO ID: [id number] Author: Dani Miller Service: Cardiac Surgery Author [...] ?F) Resp 20 Ht 177.8 cm (5' 10") Wt 108.2 kg (238 lb 9.6 oz) [...] July 03, 2018 TIME: 9:43 AM PAGER/CONTACT #:[phone] [phone] For [facility] Patient seen, labs, cxr, and data reviewed with ALEXA. Careplan reviewed and discussed. P-as ordered. Normal [facility] Basic Panelon 07-02-2018 Creatinine mass conc 1.02 mg/dL Normal 0.67-1.17 [facility] Comment on above: Performed By: #### L IPD2 #### [address] [address] Anion gap molar conc 11 mmol/L Normal 8-16 [facility] Comment on above: Performed By: #### L IPD2 #### [facility] [address] [place], [place] [address] CO2 molar conc 22 mmol/L Normal 21-32 [facility] Comment on above: Performed By: #### L IPD2 #### [facility] [address] [place], [place] [address] Glucose mass conc 107 mg/dL High 70-99 [facility] Comment on above: Performed By: #### L IPD2 #### [facility] [address] [place], [place] [address] Urea nitrogen mass conc 21 mg/dL High 7-[address] [facility] Comment on above: Performed By: #### L IPD2 #### [facility] [address] [place] [address] Calcium mass conc 7.4 mg/dL Low 8.5-10.1 [facility] Comment on above: Performed By: #### L IPD2 #### [facility] [address] [place] [address] Chloride molar conc 115 mmol/L High 98-107 [facility] Comment on above: Performed By: #### L IPD2 #### [facility] [address] [place] [address] Potassium molar conc 4.4 mmol/L Normal 3.5-5.1 [facility] Comment on above: Performed By: #### L IPD2 #### [facility] [address] [place] [address] Sodium molar conc 144 mmol/L Normal 136-145 [facility] Comment on above: Performed By: #### L IPD2 #### [facility] [address] [place] [address] CASE MANAGEMon 07-02-2018 CASE MANAGEM HNO ID: [id number] Author: Deedee (Rn) MARIUSZ Aviles Service: Care [...] 02, 2018 TIME: 2:15 PM PAGER/CONTACT #: [phone] Normal [facility] CHEST 1 VIEWon 07-02-2018 CHEST 1 VIEW Performed at [facility] APPROVED BY: Talha Oconnell MD EXAMINATION: CHEST [...] the CVICU on 07/02/2018 at 07:57. Normal [facility] CONSULT PROGon 07-02-2018 Protein mass conc HNO ID: [id number] Author: Raji Denis) Isabell Service: Critical Care [...] (Src) 98.6 (Oral) Resp 29 Ht 5' 10" (1.78m) Wt 233 lb 4 oz (105.8kg) [...] July 02, 2018 TIME: 12:20 PM Normal [facility] ECG COMPLETEon 07-02-2018 ECG COMPLETE NAME : KRYSTIAN CHILD PID : [id number] : 1945 Gender : Male Race : ORD : [id number] Procedure Date : Jul 02 2018 05:31:14 Edit Date : Jul 02 2018 09:01:07 Diagnosis:SINUS RHYTHM WITH PREMATURE ATRIAL COMPLEXES IN A PATTERN OF BIGEMINY POSSIBLE INFERIOR INFARCT , AGE UNDETERMINED LATERAL INJURY PATTERN ACUTE WY / STEMI ABNORMAL ECG WHEN COMPARED WITH ECG OF 01-JUL-2018 13:14, BORDERLINE CRITERIA FOR INFERIOR INFARCT ARE NOW PRESENT ST ELEVATION NOW PRESENT IN LATERAL LEADS Confirmed by MD PRATER SERGEY ([id number]) on 07/02/2018 9:01:05 AM Ventricular Rate : 77 BPM Atrial Rate : 77 BPM P-R Interval : 162 ms QRS Duration : 102 ms Q-T Interval : 390 ms QTC Calculation(Bezet) : 441 ms P [place] : 15 degrees R [place] : 7 degrees T [place] : 4 degrees Test Reason : Post-OP Location : 6 : [facility] 3239 Overread By : MD PRATER SERGEY Edited By : MD PRATER SERGEY Referred By : CHIN STUBBS Acquired by : YAMILE ADDISON Normal [facility] Hemogramon 07-02-2018 Erythrocyte distribution width Ratio (RBC) 13.4 % Normal 11.6-14.4 [facility] Comment on above: Performed By: #### L IPD2 #### [place] [address] Hematocrit Volume Fraction (Bld) 35.9 % Low 40.1-51.0 [facility] Comment on above: Performed By: #### L IPD2 #### [place] [address] Hemoglobin mass conc (Bld) 12.0 g/dL Low 13.7-17.5 [facility] Comment on above: Performed By: #### L IPD2 #### [place] [address] MCH Entitic mass (RBC) 31.8 pg Normal 25.7-32.2 [facility] Comment on above: Performed By: #### L IPD2 #### [facility] [address] [place] [address] MCHC mass conc (RBC) 33.4 % Normal 32.3-36.5 [facility] Comment on above: Performed By: #### L IPD2 #### [facility] [address] [place] [address] MCV Entitic volume (RBC) 95.2 fL Normal 83.2-95.6 [facility] Comment on above: Performed By: #### L IPD2 #### [facility] [address] [place] [address] Platelet mean volume Entitic volume (Bld) 11.5 fL Normal 8.7-12.0 [facility] Comment on above: Performed By: #### L IPD2 #### [place] [address] Platelets #/vol (Bld) 180 thou/cmm Normal 141-365 [facility] Comment on above: Performed By: #### L IPD2 #### [facility] [address] [place] [address] RBC #/vol (Bld) 3.77 mil/cmm Low 4.63-6.08 [facility] Comment on above: Performed By: #### L IPD2 #### [facility] [address] [place] [address] RDW SD 46.8 fl High 36.1-45.8 [facility] Comment on above: Performed By: #### L IPD2 #### [facility] [address] [place] [address] WBC #/vol (Bld) 12.65 thou/cmm High 4.23-9.07 [facility] Comment on above: Performed By: #### L IPD2 #### [facility] [address] [place] [address] Magnesium Bloodon 07-02-2018 Magnesium mass conc 2.1 mg/dL Normal 1.6-2.6 [facility] Comment on above: Performed By: #### L IPD2 #### [facility] [address] [place] [address] NUTRITIONon 07-02-2018 NUTRITION HNO ID: [id number] Author: Marina Sales) STEPH Dennis Service: Nutrition [...] - APPENDECTOMY - COLONOSCOP W/ OR W/O [facility] SPEC Colonoscopy - COLONOSCOP W/ OR W/O [facility] SPEC 10/31/05 Repeat in - MOHS [...] reports good po intake prior to admission, "my is a great cook". Reports good po over the past 5 days prior to OR. GI symptoms: none Nutrition Abdominal Exam:, abdomen is nondistended and bowel sounds are normal, per clinical documentation ANTHROPOMETRICS Height: 177.8 cm (5' 10") Admission Weight: 100.2 kg (220 lb 12.8 [...] lb) 08/13/05 : 106.6 kg (235 lb) [place] Body Weight: 75.5kg Dosing Weight: 105.8 kg Resting Metabolic Rate: 1809 Estimated kilocalorie needs: 4086-3949 kilocalories determined by 25-30 kcal/kg Estimated protein needs: 91-113 grams determined by 1.2-1.5 g/kg Dosing weight Estimated fluid needs: 5245-5406 milliliters based on 1 mL per kcal [...] (Oral) Resp 24 Ht 177.8 cm (5' 10") Wt 105.8 kg (233 lb 4 oz) [...] 0-100 mcg/min INTRAVENOUS CONTINUOUS Date 07/01/18699 - 07/02/18 0607/02/18699 - 07/03/18 0659 Shift 0170-7531 2882-8508 6008-3001 24 Hour Total 0497-8020 3950-4819 2815-4746 24 Hour Total I N T A [...] U T P U T Urine 176 149 441 2713 24 24 Output ( Indwelling Urinary Catheter 07/01/18 0740 Temperature Monitoring 16 Fr) 176 617 532 7181 24 24 Chest Tube 110 110 200 420 80 80 Chest Tube Output (Chest Tube 07/01/18 0913 Left Pleural 28 Fr Tube #1) 110 110 200 420 80 80 Shift Total 286 906 170 3394 104 104 Weight (kg) 98.9 98.9 105.8 [...] July 02, 2018 TIME: 9:48 AM PAGER: [phone] [facility] PROGRESSon 07-02-2018 Protein mass conc HNO ID: [id number] Author: Mike Allan (Pa) Service: Cardiovascular Surgery Author Type: Physician Fresh Foods Technician Type: Progress Notes Filed: 07/02/2018 11:17 AM [...] (Oral) Resp 21 Ht 177.8 cm (5' 10") Wt 105.8 kg (233 lb 4 oz) [...] Portable AP film. Under-penetrated with patient rotated TAMAZIGHT and lordotic. s/p ET tube removal. RIJ [...] 02, 2018 TIME: 10:22 AM PAGER/CONTACT #: [phone] ETX [phone] Normal [facility] THERAPY NTon 07-02-2018 THERAPY NT HNO ID: [id number] Author: Christina (Pt) SABRINA Kenyon Service: Physical Therapy Author Type: Physical Therapist Type: Therapy (PT/OT/Speech/Resp) Filed: 07/02/2018 3:37 PM Note Text: Physical Therapy Evaluation SERVICE DATE: 07/02/2018 SERVICE TIME: 1421 to 1445 ROOM: [place] [address] Recommended Discharge Disposition: Home PT Recommended Discharge [...] gait and mobility-other Interventions Provided: Evaluation;Gait Training (14528) $ Evaluation-Moderate (57454) Billed Units: 1 unit Gait Training (65851) Treatment Minutes: 8 1 unit Skilled Intervention(s): [...] CODE: PT 6 Clicks Score: 18 (07/02/18 6811) Based on clinical assessment and the score [...] Standing Dynamic Standing Balance: Contact Guard Assistance -M: 7: Walk 25 feet or more Please see discipline specific clinical documentation flowsheet for complete details for this therapy evaluation/treatment. SIGNATURE: Christina Kenyon PT PATIENT NAME: Krystian Child DATE: July 02, 2018 TIME: 3:33 PM Normal [facility] THERAPY NT HNO ID: [id number] Author: Mona Paredes/Darshan Saavedra Service: Occupational Therapy Author Type: Occupational Therapist Type: Therapy (PT/OT/Speech/Resp) Filed: 07/02/2018 2:27 PM Note Text: Occupational Therapy Evaluation SERVICE DATE: 07/02/2018 SERVICE TIME: 1120 to 1148 ROOM: [id number] Recommended Discharge Disposition: Home Anticipated Discharge Needs: [...] Functions and Awareness Interventions Provided: Therapeutic Activity (45629);Evaluation $ Evaluation-Moderate (65971) Billed Units: 1 unit OT Evaluation Moderate [...] dyspnea, and mitral valve disorders. Therapeutic Activity (80178) Treatment Minutes: 13 1 unit Skilled Intervention(s): [...] complete details for this therapy evaluation/treatment. SIGNATURE: Keisha Hunt S/AN PATIENT NAME: Krystian Child DATE: July 02, 2018 TIME: 12:10 PM I reviewed and agree with the documentation corresponding to this therapy visit. SIGNATURE: MARLA Ramos/Jay DATE: July 02, 2018 TIME: 2:27 PM Evaluation and/or treatment directly supervised by licensed Occupational Therapist. Normal [facility] ACT Arterial Panel (i-STAT)o n 07-01-2018 Kaolin ACT ( i-STAT) 125 sec Normal 74-137 [facility] Comment on above: Performed By: #### P 14 #### [facility] [address] [place] [id number] ANES Constantin 07-01-2018 ANES POST HNO ID: [id number] Author: Ousmane Magaña MD Service: Anesthesiology Author [...] 01, 2018 TIME: 8:25 PM PAGER/CONTACT #: [phone] Normal [facility] ANES PREOPon 07-01-2018 ANES PREOP HNO ID: [id number] Author: Jamal Bauer Service: Anesthesiology Author Type: [...] as of this encounter: 177.8 cm (5' 10"). Weight as of this encounter: 98.9 kg [...] - APPENDECTOMY - COLONOSCOP W/ OR W/O [facility] SPEC Colonoscopy - COLONOSCOP W/ OR W/O [facility] SPEC 10/31/05 Repeat in - MOHS [...] 500 mL irrigation 3,000 Units IRRIGATION ONCE A [MAR Hold due to Transfer] PHENYLephrine 20 mg in NaCl 0.9% 250 mL (NEOSYNEPHRINE) 25-300 mcg/min INTRAVENOUS ONCE A [MAR Hold due to Transfer] aminocaproic acid 10 g in NaCl 0.9% 250 mL (AMicAR) 1 g/hr INTRAVENOUS ONCE A [MAR Hold due to Transfer] dexmedetomidine 400 mcg in NaCl 0.9% 100 mL (PRECEDEX) 0.2-0.7 mcg/kg/hr INTRAVENOUS ONCE A [MAR Hold due to Transfer] EPINEPHrine 4 mg in NaCl 0.9% 250 mL 0.5-10 mcg/min INTRAVENOUS ONCE A rra [MAR Hold due to Transfer] insulin regular iv infusion 100 units in NaCl 0.9% 100 mL - AK CARD SURG NOMOGRAM 0-12 Units/hr INTRAVENOUS ONCE A rra [MAR Hold due to Transfer] nitroglycerin 100 mg in D5W 250 mL 5-20 mcg/min INTRAVENOUS ONCE A a [MAR Hold due to Transfer] NORepinephrine 16 mg in NaCl 0.9% 250 mL (LEVOPHED) 0-20 mcg/min INTRAVENOUS ONCE A rra [MAR Hold due to Transfer] PHENYLephrine iv infusion 10 mg in NaCl 0.9% 250 mL (EMMA-SYNEPHRINE) 0-100 mcg/min INTRAVENOUS ONCE Oscar Villanueva [JUL Hold due to Transfer] dextrose 50 g, insulin regular human 10 Units, potassium chloride 80 mEq, lidocaine (PF) 20 mg/mL (2 %) 100 mg, magnesium sulfate 4 g in electrolyte-a (PLASMA-LYTE A) 1,000 mL solution MISCELLANEOUS ONCE Oscar Villanueva [JUL Hold due to Transfer] dextrose 25 [...] AT BEDTIME Braeden Ofungwu 80 mg at 06/30/182 [JUL Hold due to Transfer] metoprolol tartrate [...] - Distal L main disease, LAD, and SOLAR SALES REPRESENTATIVE of RCA GERD Recent Lab Values WBC [...] July 01, 2018 TIME: 7:00 AM CSN: [id number] TTE (06/26/2018) CONCLUSIONS: - Technically difficult exam due to Limited Subcostals. - Exam indication: Acute chest pain with suspected W[place] - The left ventricle is normal in [...] prior CC echocardiographic exam for comparison Normal [facility] Activated PTTon 07-01-2018 aPTT Coag time (Bld) 30.6 s Normal 23.0-32.4 [facility] Comment on above: Result Comment: Note [...] laboratory APTT reagent in use throughout the [facility]. Performed By: #### L IPD2 #### [place] [address] BRIEF OP NOTon 07-01-2018 BRIEF OP NOT HNO ID: [id number] Author: Oscar Villanueva Service: Cardiac Surgery Author Type: Physician Type: Brief Op Note Filed: 07/01/2018 1:07 PM Note Text: CARDIOTHORACIC BRIEF OP NOTE LOG ID: [id number] SURGERY/PROCEDURE DATE: 07/01/2018 INCISION/PROCEDURE START TIME: 8:27 AM INCISION CLOSE/PROCEDURE END TIME: 12:56 PM SURGEON(S) AND PAPER REWINDER OPERATOR(S): Surgeon(s) and Role: * Oscar Villanueva - Primary Physician Fresh Foods Technician: Anant Ureña (Pa) Pellet Mill Operator: Julia () SA Doris; Joe () SA Alie Pellet Mill Operator (Relief): Zofia Crawford) SA Dakota PROCEDURES AND [...] TIME: 1:06 PM PAGER/CONTACT #: [phone] Normal [facility] Basic Panelon 07-01-2018 Creatinine mass conc 1.15 mg/dL Normal 0.67-1.17 [facility] Comment on above: Performed By: #### L IPD2 #### [place] [address] Anion gap molar conc 12 mmol/L Normal 8-16 [facility] Comment on above: Performed By: #### L IPD2 #### [address] [address] CO2 molar conc 22 mmol/L Normal 21-32 [facility] Comment on above: Performed By: #### L IPD2 #### [facility] [address] [place], [place] [address] Glucose mass conc 120 mg/dL High 70-99 [facility] Comment on above: Performed By: #### L IPD2 #### [facility] [address] [place], [place] [address] Urea nitrogen mass conc 19 mg/dL High 7-18 [facility] Comment on above: Performed By: #### L IPD2 #### [facility] [address] [place], [place] [address] Calcium mass conc 8.8 mg/dL Normal 8.5-10.1 [facility] Comment on above: Performed By: #### L IPD2 #### [facility] [address] [place], [place] [address] Chloride molar conc 111 mmol/L High 98-107 [facility] Comment on above: Performed By: #### L IPD2 #### [facility] [address] [place] [address] Potassium molar conc 4.1 mmol/L Normal 3.5-5.1 [facility] Comment on above: Performed By: #### L IPD2 #### [facility] [address] [place] [address] Sodium molar conc 141 mmol/L Normal 136-145 [facility] Comment on above: Performed By: #### L IPD2 #### [facility] [address] [place] [address] Blood Gas Arterialon 019 FIO2 100 % Normal [facility] Comment on above: Performed By: #### P 14 #### [facility] [address] [place] [address] Base Excess -4.4 mEq/L Normal -2.5 to 2.5 [facility] Comment on above: Performed By: #### P 14 #### [facility] [address] [place] [address] HCO3 molar conc (Bld) 21.4 mmol/L Low 22.0-26.0 [facility] Comment on above: Performed By: #### P 14 #### [facility] [address] [place] [address] O2% Sat Arterial 98.4 % High 95.0-98.0 [facility] Comment on above: Performed By: #### P 14 #### [facility] [address] [place] [address] PCO2 Arterial 42.1 mm Hg Normal 36.0-46.0 [facility] Comment on above: Performed By: #### P 14 #### [facility] [address] [place], [place] [address] pH Arterial 7.324 Low 7.350-7.450 [facility] Comment on above: Performed By: #### P 14 #### [facility] [address] [place] [address] PO2 Arterial 136.5 mm Hg High 85.0-96.0 [facility] Comment on above: Performed By: #### P 14 #### [facility] [address] [place] [address] CG8 Arterial Panel (i-STAT)o n 07-01-2018 Base Excess (i-STAT) -1.0 mmol/L Normal -2.0 to 3.0 [facility] Comment on above: Performed By: #### P 14 #### [facility] [address] [place] [address] Glucose mass conc 155 mg/dL High 70-99 [facility] Comment on above: Performed By: #### P 14 #### [facility] [address] [place] [address] HCO3 molar conc (Bld) 24.3 mmol/L Normal 22.0-26.0 [facility] Comment on above: Performed By: #### P 14 #### [facility] [address] [place] [address] Hematocrit Volume Fraction (Bld) 26 %PCV Low 38-51 [facility] Comment on above: Performed By: #### P 14 #### [facility] [address] [place] [address] Hemoglobin mass conc (Bld) 8.8 g/dL Low 12.0-17.0 [facility] Comment on above: Performed By: #### P 14 #### [facility] [address] [place] [address] Ionized Calcium (iSTAT) 5.9 mg/dL High 4.5-5.3 [facility] Comment on above: Performed By: #### P 14 #### [facility] [address] [place] [address] O2% Sat. (i-STAT) 100.0 % High 95.0-98.0 [facility] Comment on above: Performed By: #### P 14 #### [facility] [address] [place] [address] Oxygen ppres (Bld) 281.0 mm Hg High 80.0-105.0 [facility] Comment on above: Performed By: #### P 14 #### [facility] [address] [place] [address] PCO2 (i-STAT) 44.1 mm Hg Normal 35.0-45.0 [facility] Comment on above: Performed By: #### P 14 #### [facility] [address] [place], [place] [address] pH (Bld) 7.349 [pH] Low 7.350-7.450 [facility] Comment on above: Performed By: #### P 14 #### [facility] [address] [place], [place] [address] Potassium molar conc 4.2 mmol/L Normal 3.5-4.9 [facility] Comment on above: Performed By: #### P 14 #### [facility] [address] [place], [place] [address] Sodium molar conc 140 mmol/L Normal 138-146 [facility] Comment on above: Performed By: #### P 14 #### [facility] [address] [place] [address] Total CO2 (i-STAT) 26 mmol/L Normal 23-27 [facility] Comment on above: Performed By: #### P 14 #### [facility] [address] [place] [address] CG8 Venous Panel (i-STAT)on 07-01-2018 Base Excess (i-STAT) -3.0 mmol/L Normal -2.0 to 3.0 [facility] Comment on above: Performed By: #### P 14 #### [facility] [address] [place], [place] [address] Glucose mass conc 165 mg/dL High 70-99 [facility] Comment on above: Performed By: #### P 14 #### [facility] [address] [place], [place] [address] HCO3 molar conc (Bld) 22.8 mmol/L Low 23.0-28.0 [facility] Comment on above: Performed By: #### P 14 #### [facility] [address] [place], [place] [address] Hematocrit Volume Fraction (Bld) 28 %PCV Low 38-51 [facility] Comment on above: Performed By: #### P 14 #### [facility] [address] [place] [address] Hemoglobin mass conc (Bld) 9.5 g/dL Low 12.0-17.0 [facility] Comment on above: Performed By: #### P 14 #### [facility] [address] [place] [address] Ionized Calcium (iSTAT) 4.2 mg/dL Low 4.5-5.3 [facility] Comment on above: Performed By: #### P 14 #### [facility] [address] [place] [address] O2% Sat. (i-STAT) 79.0 % Normal 35.0-85.0 [facility] Comment on above: Performed By: #### P 14 #### [facility] [address] [place] [address] Oxygen ppres (Bld) 47.0 mm Hg Normal 20.0-50.0 [facility] Comment on above: Performed By: #### P 14 #### [facility] [address] [place] [address] PCO2 (i-STAT) 45.3 mm Hg Normal 41.0-51.0 [facility] Comment on above: Performed By: #### P 14 #### [facility] [address] [place] [address] pH (Bld) 7.311 [pH] Normal 7.310-7.410 [facility] Comment on above: Performed By: #### P 14 #### [facility] [address] [place] [address] Potassium molar conc 5.3 mmol/L High 3.5-4.9 [facility] Comment on above: Performed By: #### P 14 #### [facility] [address] [place] [address] Sodium molar conc 137 mmol/L Low 138-146 [facility] Comment on above: Performed By: #### P 14 #### [facility] [address] [place] [address] Total CO2 (i-STAT) 24 mmol/L Normal 24-29 [facility] Comment on above: Performed By: #### P 14 #### [facility] [address] [place] [address] CHEST 1 VIEWon 07-01-2018 CHEST 1 VIEW Performed at [facility] APPROVED BY: REBEKAH SALGADO MD X-RAY CHEST [...] be advanced. No acute radiographic abnormality. Normal [facility] CONSULTon 07-01-2018 CONSULT HNO ID: [id number] Author: Raji Denis) Isabell Service: Critical Care [...] revealed multivessel disease and was admitted to [facility] for CABG. He underwent CABG 07/01/2018. [...] Score: Pt. Sleeping (Do Not Use With BUS PERSON DISHWASHER Meds) Vital signs reviewed. BP 147/71 Pulse 87 Temp (Src) 96.8 (Anguiano Thermistor) Resp 23 Ht 5' 10" (1.78m) Wt 218 lb 1.6 oz (98.9kg) [...] Set Ventilator Respiratory Rate (BPM): 12 (07/01/18 130) Total Respiratory Rate (BPM): 13 (07/01/18 130) Tidal Volume Set (mL): 550 (07/01/18 130) Exhaled Tidal Volume (mL): 582 (07/01/18 130) Minute Volume (L): 6.02 (07/01/18 130) Peak Inspiratory Pressure (cm H2O): 17 (07/01/18 [...] July 01, 2018 TIME: 2:14 PM Normal [facility] [facility] ECG COMPLETEon 07-01-2018 ECG COMPLETE NAME : KRYSTIAN CHILD PID : [id number] : 1945 Gender : Male Race : ORD : [id number] Procedure Date : Jul 01 2018 13:14:39 Edit Date : Jul 02 2018 08:58:11 Diagnosis:SINUS RHYTHM WITH PREMATURE ATRIAL COMPLEXES OTHERWISE NORMAL ECG NO PREVIOUS ECGS AVAILABLE Confirmed by MD PRATER SERGEY ([id number]) on 07/02/2018 8:58:01 AM Ventricular Rate : 73 BPM Atrial Rate : 73 BPM P-R Interval : 184 ms QRS Duration : 102 ms Q-T Interval : 428 ms QTC Calculation(Bezet) : 471 ms P [place] : 54 degrees R [place] : 49 degrees T [place] : 23 degrees Test Reason : Post-OP Location : 6 : [place] [address] Overread By : MD PRATER SERGEY Edited By : MD PRATER SERGEY Referred By : CHIN STUBBS Acquired by : , Normal [facility] Hemogramon 07-01-2018 Erythrocyte distribution width Ratio (RBC) 13.1 % Normal 11.6-14.4 [facility] Comment on above: Performed By: #### P 14 #### [place] [address] Hematocrit Volume Fraction (Bld) 33.7 % Low 40.1-51.0 [facility] Comment on above: Performed By: #### P 14 #### [place] [address] Hemoglobin mass conc (Bld) 11.5 g/dL Low 13.7-17.5 [facility] Comment on above: Performed By: #### P 14 #### [address], [place] [address] MCH Entitic mass (RBC) 32.1 pg Normal 25.7-32.2 [facility] Comment on above: Performed By: #### P 14 #### [facility] [address] [place] [address] MCHC mass conc (RBC) 34.1 % Normal 32.3-36.5 [facility] Comment on above: Performed By: #### P 14 #### [facility] [address] [place] [address] MCV Entitic volume (RBC) 94.1 fL Normal 83.2-95.6 [facility] Comment on above: Performed By: #### P 14 #### [facility] [address] [place] [address] Platelet mean volume Entitic volume (Bld) 11.1 fL Normal 8.7-12.0 [facility] Comment on above: Performed By: #### P 14 #### [facility] [address] [place] [address] Platelets #/vol (Bld) 129 thou/cmm Low 141-365 [facility] Comment on above: Performed By: #### P 14 #### [facility] [address] [place] [address] RBC #/vol (Bld) 3.58 mil/cmm Low 4.63-6.08 [facility] Comment on above: Performed By: #### P 14 #### [facility] [address] [place] [address] RDW SD 44.6 fl Normal 36.1-45.8 [facility] Comment on above: Performed By: #### P 14 #### [facility] [address] [place] [address] WBC #/vol (Bld) 14.01 thou/cmm High 4.23-9.07 [facility] Comment on above: Performed By: #### P 14 #### [facility] [address] [place] [address] Magnesium Bloodon 07-01-2018 Magnesium mass conc 2.8 mg/dL High 1.6-2.6 [facility] Comment on above: Performed By: #### L IPD2 #### [facility] [address] [place] [address] OPERATIVE NOon 07-01-2018 OPERATIVE NO HNO ID: [id number] Author: Oscar Villanueva Service: Cardiac Surgery Author Type: Physician Type: Operative Report Filed: 07/02/2018 8:25 AM Note Text: [facility] - Operative Report KRYSTIAN CHILD : 1945 AGE: 72. SEX: M PATIENT TYPE: I HOSP SVC: INTM LOCATION: [facility] ATTENDING PHYSICIAN: OSCAR VILLANUEVA CSN NUMBER: [id number] DATE OF SURGERY/PROCEDURE: 07/01/2018 INCISION/PROCEDURE START TIME: 8:27 AM INCISION CLOSE/PROCEDURE END TIME: 12:56 PM PREOPERATIVE DIAGNOSIS: Multi-vessel coronary disease, anginal symptoms. POSTOPERATIVE DIAGNOSIS: Multi-vessel coronary disease, anginal symptoms. SURGEON: Oscar Villanueva MD PAPER REWINDER OPERATOR: 1. Ms. Duncan. 2. Ms. George. 3. [...] an occluded right coronary was filled via pqvl-qt-[id number] collaterals. Left ventricular function was well preserved. [...] in layers with absorbable suture. The sternal industrial commercial groundskeeper was placed in the wound. A pericardial [...] in good condition after a sign-out. MD NITZA Rosales:[id number] /[id number] Normal [facility] PROGRESSon 07-01-2018 Protein mass conc HNO ID: [id number] Author: Mike Allan (Pa) Service: Cardiovascular Surgery Author Type: Physician Fresh Foods Technician Type: Progress Notes Filed: 07/01/2018 2:33 PM [...] 01, 2018 TIME: 2:32 PM PAGER/CONTACT #: [phone] [id number] Normal [facility] Protimeon 07-01-2018 INR Coag RelTime (PPP) 1.14 {INR} Normal 0.90-1.30 [facility] Comment on above: Result Comment: Note : Reference Range Change Vitamin K Antagonist (VKA) Therapeutic Range: INR 2 to 3 (Target INR of 2.5) Note: For patients treated with VKA drugs, such as warfarin, the [employer] 2012 Guideline recommends [...] Chest 2012; 141:7S-47S Chepe MCKEON et al. JAC 2017; 70: 252-289 Performed By: #### L IPD2 #### [place] [address] Prothrombin time (PT) Coag time (PPP) 11.7 s Normal 9.7-13.0 [facility] Comment on above: Performed By: #### L IPD2 #### [facility] [address] [place] [address] RBC Productson 07-01-2018 Xmatch Unit 1 see below Normal [facility] Comment on above: Result Comment: Comp atible Performed By: #### P 14 #### [facility] [address] [place] [address] Xmatch Unit 2 see below Normal [facility] Comment on above: Result Comment: Comp atible Performed By: #### P 14 #### [facility] [address] [place] [address] CASE MANAGEMon 06-30-2018 CASE MANAGEM HNO ID: [id number] Author: Keisha Montoya) MARIUSZ Tamayo Service: Care [...] 30, 2018 TIME: 10:35 AM PAGER/CONTACT #: [phone] [facility] PLAN OF CAREon 06-30-2018 PLAN OF CARE HNO ID: [id number] Author: Zechariah Pedroza APRN.CNP Service: Cardiovascular Surgery [...] no questions at this point. Zechariah Pedroza APRN.BUSINESS PROCESS ENGINEER [facility] PROGRESSon 06-30-2018 Protein mass conc HNO ID: [id number] Author: Wallace Barrientos Service: Hospital Medicine Author Type: Physician Type: Progress Notes Filed: 06/30/2018 4:42 PM Note Text: INPATIENT PROGRESS NOTE CHIEF COMPLAINT: CP INTERVAL HPI: no new complaints. Scheduled for CABG in am. PHYSICAL EXAM: BP 145/63 Pulse 66 Temp (Src) 97.9 (Oral) Resp 18 Ht 5' 10" (1.78m) Wt 220 lb 12.8 oz (100.2kg) [...] June 30, 2018 TIME: 4:40 PM PAGER: [facility] PROGRESSon 06-29-2018 Protein mass conc HNO ID: [id number] Author: Braeden August Service: Hospital Medicine Author Type: Physician Type: Progress Notes Filed: 06/29/2018 9:35 AM Note Text: DEPARTMENT OF HOSPITAL MEDICINE PROGRESS NOTE SERVICE DATE: 06/29/2018 SERVICE TIME: 9:32 AM Hospital Medicine/Primary Attending: Braeden August MD NIGHT AND WEEKEND COVERAGE: Please page [phone] from 7 PM to 7 AM Subjective INTERVAL HPI: Reports feeling well. Denied fever and chills. No chest pain. MEDICATIONS: Reviewed Objective PHYSICAL EXAM: BP 163/75 Pulse 68 Temp (Src) 97.7 (Oral) Resp 18 Ht 5' 10" (1.78m) Wt 220 lb 12.8 oz (100.2kg) [...] 1645 vte non-pharmacologic prophylaxis - none indicated (ky,oh) VTE Prophylaxis: VTE prophylaxis appropriate Disposition: Home Plan of care discussed with: Patient SIGNATURE: Braeden August MD PATIENT NAME: Krystian Child DATE: June 29, 2018 TIME: 9:32 AM PAGER/CONTACT #: [phone] [phone] Normal [facility] Type and Screenon 06-29-2018 ABO group Nom (Bld) O Normal [facility] Comment on above: Performed By: #### P 14 #### [place] [address] Comment See Below [facility] Comment on above: Result Comment: Scre en &/or Xmatch expires in 3 days at 12 midnight. Redraw patient at that time. Performed By: #### P 14 #### 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 No Advance Directive: Current Advance Directive: Health Care Power of Tubing Oiler;Living Will In Chart: No Sales Stock Associate Attempted to Assist with AD Completion: No [...] None Has the Patient Been in a Chcf Facility in the Past 30 days? No SOCIAL: Living Arrangement: Home Lives With: Spouse Financial Resources: Retired Primary Contact: Extended Emergency Contact Information Primary Emergency Contact: Bozena Child Address: [facility] [place] [address] Relation: Spouse Supportive: Yes Other Important Patient [...] 0 I feel financially burdened by my onk-ke-zajcwe expenses for my prescription medication: Disagree mostly [...] FREEDOM OF CHOICE EXPLAINED: Preference: [facility] or [place] home care POTENTIAL TRANSITION PLANS Home Home [...] 28, 2018 TIME: 4:01 PM PAGER/CONTACT #: [phone] [facility] CDVI B MODEon 06-28-2018 CDVI B MODE Performed at [facility] APPROVED BY: ELISEO HUFFMAN MD EXAM TITLE: [...] the cervical level carotid system bilaterally. Normal [facility] PROGRESSon 06-28-2018 Protein mass conc HNO ID: [id number] Author: Braeden August Service: Hospital Medicine Author Type: Physician Type: Progress Notes Filed: 06/28/2018 8:39 AM Note Text: DEPARTMENT OF HOSPITAL MEDICINE PROGRESS NOTE SERVICE DATE: 06/28/2018 SERVICE TIME: 8:31 AM Hospital Medicine/Primary Attending: Braeden August MD NIGHT AND WEEKEND COVERAGE: Please page [phone] from 7 PM to 7 AM Subjective INTERVAL HPI: Reports feeling better. Denied fever and chills. No chest pain. No nausea or vomiting. MEDICATIONS: Reviewed Objective PHYSICAL EXAM: BP 119/70 Pulse 65 Temp (Src) 97.9 (Oral) Resp 18 Ht 5' 10" (1.78m) Wt 220 lb 12.8 oz (100.2kg) [...] 1645 vte non-pharmacologic prophylaxis - none indicated (ky,ia) VTE Prophylaxis: VTE prophylaxis appropriate Disposition: Home Plan of care discussed with: Patient SIGNATURE: Braeden August MD PATIENT NAME: Krystian Child DATE: June 28, 2018 TIME: 8:31 AM PAGER/CONTACT #: [phone] [phone] Normal [facility] PROGRESSon 06-27-2018 Protein mass conc HNO ID: [id number] Author: Braeden August Service: Hospital Medicine Author Type: Physician Type: Progress Notes Filed: 06/27/2018 9:57 AM Note Text: DEPARTMENT OF HOSPITAL MEDICINE PROGRESS NOTE SERVICE DATE: 06/27/2018 SERVICE TIME: 9:47 AM Hospital Medicine/Primary Attending: Braeden August MD NIGHT AND WEEKEND COVERAGE: Please Page [phone] from 7 PM to 7 AM Subjective INTERVAL HPI: Reports feeling well. Denied fever and chills No chest pain MEDICATIONS: Reviewed Objective PHYSICAL EXAM: BP 147/78 Pulse 65 Temp (Src) 98.2 (Oral) Resp 14 Ht 5' 10" (1.78m) Wt 220 lb 12.8 oz (100.2kg) [...] 1645 vte non-pharmacologic prophylaxis - none indicated (ky,oh) VTE Prophylaxis: VTE prophylaxis appropriate Disposition: Home Plan of care discussed with: Patient SIGNATURE: Braeden August MD PATIENT NAME: Krystian Child DATE: June 27, 2018 TIME: 9:47 AM PAGER/CONTACT #: [phone] [phone] Normal [facility] Protimeon 06-27-2018 INR Coag RelTime (PPP) 1.06 {INR} Normal 0.90-1.30 [facility] Comment on above: Result Comment: Note : Reference Range Change Vitamin K Antagonist (VKA) Therapeutic Range: INR 2 to 3 (Target INR of 2.5) Note: For patients treated with VKA drugs, such as warfarin, the [employer] 2012 Guideline recommends [...] 252-289 Performed By: #### P 14 #### [facility] [address] [place] [address] Prothrombin time (PT) Coag time (PPP) 11.0 s Normal 9.7-13.0 [facility] Comment on above: Performed By: #### P 14 #### [facility] [address] [place] [address] CHEST 2 VIEWSon 06-26-2018 CHEST 2 VIEWS Performed at [facility] APPROVED BY: Neri Matthews MD EXAMINATION: CHEST [...] identified. IMPRESSION: No acute radiographic abnormality. Normal [facility] CONSULTon 06-26-2018 CONSULT HNO ID: [id number] Author: Oscar Villanueva Service: Cardiac Surgery Author [...] cardiac catheterization 06/25/[address] Stubbs at [facility]. He reports he was in [place] [...] the perioperative course: - CAD of the inupiat vessel. No interventions.. PAST MEDICAL HISTORY Diagnosis [...] (Oral) Resp 16 Ht 177.8 cm (5' 10") Wt 100.2 kg (220 lb 12.8 oz) [...] Official report is pending, images available in Lum[facility]. 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 Chest X-RAY: Pending ECHO: CONCLUSIONS: - Technically difficult exam due to Limited Subcostals. - Exam indication: Acute chest pain with suspected [place] - The left ventricle is normal in [...] POA: Yes Assessment AND Plan: -will ask [facility] to re-send cath report, description of cath does not match the patient (report describes stents, but Mr Child has never had stents. 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 SIGNATURE: Orlando Jacobs APRN.BUSINESS PROCESS ENGINEER PATIENT NAME: Krystian Child DATE: June 26, 2018 TIME: 11:38 AM PAGER/CONTACT #: [phone] [phone] Attending Note I have personally performed a face to face assessment of the patient and have reviewed the PA/SUPERVISOR MOTOR VEHICLE ASSEMBLY note. My bean findings include: Assessment/Plan are [...] MD Date: 06/27/2018 Time: 11:40 AM Normal [facility] CONSULT PROGon 06-26-2018 Protein mass conc HNO ID: [id number] Author: Julia Ackerman (Pa) Service: Cardiac Surgery Author Type: Physician Fresh Foods Technician Type: Consult Progress Note Filed: 07/03/2018 9:43 [...] cardiac catheterization 06/25/[address] Stubbs at [facility]. ? He reports he was in [...] (Oral) Resp 16 Ht 177.8 cm (5' 10") Wt 100.2 kg (220 lb 12.8 oz) SpO2 95% BMI 31.68 kg/m? Wt: 104 kg (229 lb 4.5 oz) BMI: 31.98 kg/(m2) Procedure: CABG Diagnosis: CAD/Angina Date of Procedure: 07/01/2018 STS Risk Score: 0.762% CARE TEAM: Cardiac Surgeon: Dr. Villanueva System Software Programmer: Evelyne PCP: Jamila Other Providers: N/A Pre-Op [...] Negative NEGATIVE Bilirubin, Urine Negative NEGATIVE Specific [place], Ur 1.005 - 1.030 1.018 pH, Urine [...] abnormality Cardiac Catheterization: new/updated report reviewed from [facility] resent 06/28/2018 2D Echo: EF: 55% [...] The mitral valve leaflets are structurally normal. Craig mitral valve. There is mild (1+) mitral valve regurgitation. The pressure half time is 74 msec. The peak mitral E/A ratio is 0.60. The average mitral E/e' ratio is 8.7. The mitral flow deceleration time is 254 msec. ? TRICUSPID VALVE The tricuspid valve leaflets are structurally normal. Craig tricuspid valve. There is trace tricuspid valve [...] Exam indication: Acute chest pain with suspected [place] - The left ventricle is normal in [...] Vascular surgery No Other No Orlando Jacobs APRN.BUSINESS PROCESS ENGINEER Normal [facility] Comprehensive Panelon 2018 ALP enzyme act/vol 49 U/L Normal 46-116 [facility] Comment on above: Performed By: #### P 14 #### [facility] [address] [place] [address] Protein mass conc 6.7 g/dL Normal 6.4-8.2 [facility] Comment on above: Performed By: #### P 14 #### [facility] [address] [place] [address] Bilirubin mass conc 0.6 mg/dL Normal 0.2-1.0 [facility] Comment on above: Performed By: #### P 14 #### [facility] [address] [place] [address] ALT enzyme act/vol 24 U/L Normal 12-78 [facility] Comment on above: Performed By: #### P 14 #### [facility] [address] [place], [place] [address] Creatinine mass conc 1.03 mg/dL Normal 0.67-1.17 [facility] Comment on above: Performed By: #### P 14 #### [facility] [address] [place] [address] AST enzyme act/vol 13 U/L Normal 9-37 [facility] Comment on above: Performed By: #### P 14 #### [facility] [address] [place], [place] [address] Albumin mass conc 3.2 g/dL Low 3.4-5.0 [facility] Comment on above: Performed By: #### P 14 #### [facility] [address] [place] [address] Anion gap molar conc 9 mmol/L Normal 8-16 [facility] Comment on above: Performed By: #### P 14 #### [facility] [address] [place], [place] [address] CO2 molar conc 26 mmol/L Normal 21-32 [facility] Comment on above: Performed By: #### P 14 #### [facility] [address] [place] [address] Glucose mass conc 97 mg/dL Normal 70-99 [facility] Comment on above: Performed By: #### P 14 #### [facility] [address] [place] [address] Calcium mass conc 8.2 mg/dL Low 8.5-10.1 [facility] Comment on above: Performed By: #### P 14 #### [facility] [address] [place] [address] Urea nitrogen mass conc 19 mg/dL High 7-18 [facility] Comment on above: Performed By: #### P 14 #### [facility] [address] [place] [address] Chloride molar conc 108 mmol/L High 98-107 [facility] Comment on above: Performed By: #### P 14 #### [facility] [address] [place] [address] Potassium molar conc 4.0 mmol/L Normal 3.5-5.1 [facility] Comment on above: Performed By: #### P 14 #### [facility] [address] [place] [address] Sodium molar conc 139 mmol/L Normal 136-145 [facility] Comment on above: Performed By: #### P 14 #### [facility] [address] [place] [address] Hemogramon 06-26-2018 Erythrocyte distribution width Ratio (RBC) 13.1 % Normal 11.6-14.4 [facility] Comment on above: Performed By: #### C BC1 #### [facility] [address] [place] [address] Hematocrit Volume Fraction (Bld) 40.6 % Normal 40.1-51.0 [facility] Comment on above: Performed By: #### C BC1 #### [facility] [address] [place] [address] Hemoglobin mass conc (Bld) 14.0 g/dL Normal 13.7-17.5 [facility] Comment on above: Performed By: #### C BC1 #### [facility] [address] [place] [address] MCH Entitic mass (RBC) 31.9 pg Normal 25.7-32.2 [facility] Comment on above: Performed By: #### C BC1 #### [facility] [address] [place] [address] MCHC mass conc (RBC) 34.5 % Normal 32.3-36.5 [facility] Comment on above: Performed By: #### C BC1 #### [facility] [address] [place] [address] MCV Entitic volume (RBC) 92.5 fL Normal 83.2-95.6 [facility] Comment on above: Performed By: #### C BC1 #### [facility] [address] [place] [address] Platelet mean volume Entitic volume (Bld) 10.8 fL Normal 8.7-12.0 [facility] Comment on above: Performed By: #### C BC1 #### [facility] [address] [place] [address] Platelets #/vol (Bld) 162 thou/cmm Normal 141-[address] [facility] Comment on above: Performed By: #### C BC1 #### [facility] [address] [place] [address] RBC #/vol (Bld) 4.39 mil/cmm Low 4.63-6.08 [facility] Comment on above: Performed By: #### C BC1 #### [facility] [address] [place] [address] RDW SD 44.0 fl Normal 36.1-45.8 [facility] Comment on above: Performed By: #### C BC1 #### [facility] [address] [place] [address] WBC #/vol (Bld) 6.57 thou/cmm Normal 4.23-9.07 [facility] Comment on above: Performed By: #### C BC1 #### [facility] [address] [place], [place] [address] Hgb A1con 06-26-2018 Hemoglobin A1c/Hemoglobin.total mass fraction (Bld) 108 mg/dl Normal [facility] Comment on above: Performed By: #### H A1C #### [facility] [address] [place], [place] [address] Hemoglobin A1c/Hemoglobin.total mass fraction (Bld) 5.4 % Normal 4.2-6.3 [facility] Comment on above: Result Comment: Meth od is National Glycohemoglobin Standardization Program (NGSP) compliant. Performed By: #### H A1C #### [facility] [address] [place], [place] [address] Lipid Profileon 06-26-2018 Cholesterol in HDL mass conc 30 mg/dL Normal >40 [facility] Comment on above: Performed By: #### L IPD2 #### [facility] [address] [place], [place] [address] Cholesterol in LDL mass conc 86 mg/dL Normal [facility] Comment on above: Result Comment: No C AD and with fewer than 2 CAD risk factors <160 mg/dL No CAD but with 2 or more CAD risk factors <130 mg/dL Definite CAD or other atherosclerotic disease <100 mg/dL Performed By: #### L IPD2 #### [facility] [address] [place], [place] [address] Cholesterol in LDL/Cholesterol in HDL mass ratio 2.9 Normal 1.1-4.8 [facility] Comment on above: Result Comment: LDL, VLDL,LDL/HDL, Invalid if Triglyceride >400 Performed By: #### L IPD2 #### [facility] [address] [place], [place] [address] Cholesterol.total/Viktoria sterol in HDL mass ratio 5.1 {ratio} Normal 2.1-7.3 [facility] Comment on above: Performed By: #### L IPD2 #### [facility] [address] [place], [place] [address] Cholesterol in VLDL mass conc 37 mg/dL Normal <50 Desired [facility] Comment on above: Performed By: #### L IPD2 #### [facility] [address] [place], [place] [address] Triglyceride mass conc 187 mg/dL High 0-149 [facility] Comment on above: Result Comment: < 20 0 Desirable Result invalid if not a fasting specimen. Performed By: #### L IPD2 #### [facility] [address] [place], [place] [address] Cholesterol mass conc 153 mg/dL Normal 0-199 [facility] Comment on above: Result Comment: <200 Desirable 200-240 Borderline >240 High Performed By: #### L IPD2 #### [facility] [address] [place], [place] [address] Magnesium Bloodon 06-26-2018 Magnesium mass conc 2.1 mg/dL Normal 1.6-2.6 [facility] Comment on above: Performed By: #### M AG #### [facility] [address] [place], [place] [address] PROGRESSon 06-26-2018 Protein mass conc HNO ID: [id number] Author: Braeden August Service: Hospital Medicine Author Type: Physician Type: Progress Notes Filed: 06/26/2018 8:49 AM Note Text: DEPARTMENT OF HOSPITAL MEDICINE PROGRESS NOTE SERVICE DATE: 06/26/2018 SERVICE TIME: 8:41 AM Hospital Medicine/Primary Attending: Braeden August MD NIGHT AND WEEKEND COVERAGE: Please page [phone] from 7 PM to 7 AM Subjective INTERVAL HPI: Reports doing well. Denied fever and chills. Noted fair night rest. MEDICATIONS: Reviewed Objective PHYSICAL EXAM: BP 149/77 Pulse 72 Temp (Src) 98.2 (Oral) Resp 18 Ht 5' 10" (1.78m) Wt 220 lb 12.8 oz (100.2kg) [...] 1645 vte non-pharmacologic prophylaxis - none indicated (ky,ia) VTE Prophylaxis: VTE prophylaxis appropriate Disposition: Home Plan of care discussed with: Patient SIGNATURE: Braeden August MD PATIENT NAME: Krystian Child DATE: June 26, 2018 TIME: 8:41 AM PAGER/CONTACT #: [phone] Normal [facility] TSH, 3rd generationon 2018 TSH, 3rd generation 2.560 uIU/mL Normal 0.358-3.740 [facility] [facility] Comment on above: Performed By: #### T SH3 #### [address] [address] Urinalysis, reflexon 019 Reflex Comment see below Normal [facility] Comment on above: Result Comment: Refl ex to culture is not indicated based on established laboratory criteria. Performed By: #### U RIN #### [address] [place] [address] Bacteria LM.HPF #/area (Urine sed) NONE Normal None [facility] Comment on above: Performed By: #### U RIN #### [facility] [address] [address] Ep Cells Urine 0.5 /hpf Normal 0.0-5.0 [facility] Comment on above: Performed By: #### U RIN #### [facility] [address] [place] [address] Hyaline Cast 1.2 /lpf High 0.0-1.0 [facility] Comment on above: Performed By: #### U RIN #### [place] [address] RBC,Urine 1.9 /hpf Normal 0.0-5.0 [facility] Comment on above: Performed By: #### U RIN #### [place] [address] WBC, reflex 0.40 /hpf Normal 0.00-5.00 [facility] Comment on above: Performed By: #### U RIN #### [place] [address] Appearance Nom (U) CLEAR Normal [facility] Comment on above: Performed By: #### U RIN #### [place] [address] Bilirubin Urine Negative Normal Negative [facility] Comment on above: Performed By: #### U RIN #### [place] [address] Color Nom (U) YELLOW Normal [facility] Comment on above: Performed By: #### U RIN #### [place] [address] Glucose Ql (U) Negative Normal Negative [facility] Comment on above: Performed By: #### U RIN #### [place] [address] Hemoglobin,Urine Negative Normal Negative [facility] Comment on above: Performed By: #### U RIN #### [place] [address] Ketone Urine Negative Normal Negative [facility] Comment on above: Performed By: #### U RIN #### [facility] [address] [address] Leukocyte esterase Test strip Ql (U) Negative Normal Negative [facility] Comment on above: Performed By: #### U RIN #### [facility] [address] [address] Nitrite reflex Negative Normal Negative [facility] Comment on above: Performed By: #### U RIN #### [facility] [address] [address] pH (U) 6.5 [pH] Normal 5.0-8.0 [facility] Comment on above: Performed By: #### U RIN #### [facility] [address] [address] Protein mass conc (U) Negative Normal Negative [facility] Comment on above: Performed By: #### U RIN #### [place] [address] Specific [place], Ur 1.018 Normal 1.005-1.030 [facility] Comment on above: Performed By: #### U RIN #### [place] [address] Urobilinogen,Ur 1.0 EU/dL Normal 0.0-1.0 [facility] Comment on above: Performed By: #### U RIN #### [place] [address] HISTORY PHYSICALon 9 HISTORY PHYSICAL HNO ID: [id number] Author: Braeden August Service: Hospital Medicine Author Type: Physician Type: HANDP Filed: 06/25/2018 5:27 PM Note Text: DEPARTMENT OF HOSPITAL MEDICINE HISTORY AND PHYSICAL EXAM SERVICE DATE: 06/25/2018 SERVICE TIME: 5:04 PM Primary Care Physician: Ligia Mcrae, DO NIGHT AND WEEKEND COVERAGE: Please page [phone] from 7 Pm to 7 AM Subjective [...] (Src) 98.6 (Oral) Resp 16 Ht 5' 10" (1.78m) Wt 220 lb 12.8 oz (100.2kg) [...] 1645 vte non-pharmacologic prophylaxis - none indicated (ky,ia) VTE Prophylaxis: VTE prophylaxis appropriate Disposition: Home with [facility] Plan of care discussed with: Patient SIGNATURE: Braeden August MD PATIENT NAME: Krystian Child DATE: June 25, 2018 TIME: 5:03 PM PAGER/CONTACT #: [phone] Normal [facility] HOSPon 06-25-2018 HOSP Patient:Krystian Child MRN: Height:5' 10"(1.778 m) Weight:218 lb 1.6 oz (98.93 kg) [...] DO NIGHT AND WEEKEND COVERAGE: Please page [phone] from 7 Pm to 7 AM Subjective [...] - APPENDECTOMY - COLONOSCOP W/ OR W/O [facility] SPEC Colonoscopy - COLONOSCOP W/ OR [...] (Src) 98.6 (Oral) Resp 16 Ht 5' 10" (1.78m) Wt 220 lb 12.8 oz (100.2kg) [...] 1645 vte non-pharmacologic prophylaxis - none indicated (ky,oh) VTE Prophylaxis: VTE prophylaxis appropriate Disposition: Home with [facility] Plan of care discussed with: Patient SIGNATURE: Braeden August MD PATIENT NAME: Krystian Child DATE: June 25, 2018 TIME: 5:03 PM PAGER/CONTACT #: [phone] Braeden August MD 06/26/2018 8:49 AM Signed DEPARTMENT OF HOSPITAL MEDICINE PROGRESS NOTE SERVICE DATE: 06/26/2018 SERVICE TIME: 8:41 AM Hospital Medicine/Primary Attending: Braeden August MD NIGHT AND WEEKEND COVERAGE: Please page [phone] from 7 PM to 7 AM Subjective INTERVAL HPI: Reports doing well. Denied fever and chills. Noted fair night rest. MEDICATIONS: Reviewed Objective PHYSICAL EXAM: BP 149/77 Pulse 72 Temp (Src) 98.2 (Oral) Resp 18 Ht 5' 10" (1.78m) Wt 220 lb 12.8 oz (100.2kg) [...] 1645 vte non-pharmacologic prophylaxis - none indicated (ky,ia) VTE Prophylaxis: VTE prophylaxis appropriate Disposition: Home Plan of care discussed with: Patient SIGNATURE: Braeden August MD PATIENT NAME: Krystian Child DATE: June 26, 2018 TIME: 8:41 AM PAGER/CONTACT #: [phone] Oscar Villanueva MD 06/27/2018 11:42 AM Addendum [...] cardiac catheterization 06/25/[address] Stubbs at [facility]. He reports he was in [place] [...] the perioperative course: - CAD of the inupiat vessel. No interventions.. PAST MEDICAL HISTORY Diagnosis [...] (Oral) Resp 16 Ht 177.8 cm (5' 10") Wt 100.2 kg (220 lb 12.8 oz) [...] Exam indication: Acute chest pain with suspected W[place] - The left ventricle is normal in [...] POA: Yes Assessment AND Plan: -will ask [facility] to re-send cath report, description of cath does not match the patient (report describes stents, but Mr Child has never had stents. 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 My bean findings include: Assessment/Plan are [...] MD 06/27/2018 9:57 AM Signed [facility] OF [facility] MEDICINE PROGRESS NOTE SERVICE DATE: 06/27/2018 SERVICE TIME: 9:47 AM Hospital Medicine/Primary Attending: Braeden August MD NIGHT AND WEEKEND COVERAGE: Please Page [phone] from 7 PM to 7 AM Subjective INTERVAL HPI: Reports feeling well. Denied fever and chills No chest pain MEDICATIONS: Reviewed Objective PHYSICAL EXAM: BP 147/78 Pulse 65 Temp (Src) 98.2 (Oral) Resp 14 Ht 5' 10" (1.78m) Wt 220 lb 12.8 oz (100.2kg) [...] 2018 TIME: 9:47 AM PAGER/CONTACT #: [phone] [phone] Braeden August MD 06/28/2018 8:39 AM Signed DEPARTMENT OF HOSPITAL MEDICINE PROGRESS NOTE SERVICE DATE: 06/28/2018 SERVICE TIME: 8:31 AM Hospital Medicine/Primary Attending: Braeden August MD NIGHT AND WEEKEND COVERAGE: Please page [phone] from 7 PM to 7 AM Subjective INTERVAL HPI: Reports feeling better. Denied fever and chills. No chest pain. No nausea or vomiting. MEDICATIONS: Reviewed Objective PHYSICAL EXAM: BP 119/70 Pulse 65 Temp (Src) 97.9 (Oral) Resp 18 Ht 5' 10" (1.78m) Wt 220 lb 12.8 oz (100.2kg) [...] 1645 vte non-pharmacologic prophylaxis - none indicated (ky,oh) VTE Prophylaxis: VTE prophylaxis appropriate Disposition: Home Plan of care discussed with: Patient SIGNATURE: Braeden August MD PATIENT NAME: Krystian Child DATE: June 28, 2018 TIME: 8:31 AM PAGER/CONTACT #: [phone] [phone] Keisha Tamayo RN, RN 06/28/2018 4:03 PM Signed CARE MANAGEMENT: ASSESSMENT AND DISCHARGE PLAN SERVICE DATE: 06/28/2018 SERVICE TIME: 4:01 PM PRIMARY CARE PHYSICIAN: Ligia Mcrae DO ADMISSION STATUS: Inpatient Needs Prior to Discharge: Home Care Order 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 No Advance Directive: Current Advance Directive: Health Care Power of Tubing Oiler;Living Will In Chart: No Sales Stock Associate Attempted to Assist with AD Completion: No [...] None Has the Patient Been in a Chcf Facility in the Past 30 days? No SOCIAL: Living Arrangement: Home Lives With: Spouse Financial Resources: Retired Primary Contact: Extended Emergency Contact Information Primary Emergency Contact: Bozena Child [address] [place] [address] Relation: Spouse Supportive: Yes Other Important Patient [...] 0 I feel financially burdened by my yhl-fw-wzlguo expenses for my prescription medication: Disagree mostly [...] that he lives at home with his santoshdeanne CHEKO. Plan CABG this . Anticipate need for hhc post op- pt would like [facility] ( if unable would like [facility]). Will follow. SIGNATURE: Keisha Tamayo RN PATIENT NAME: Krystian Child DATE: June 28, 2018 TIME: 4:01 PM PAGER/CONTACT #: [phone] Braeden August MD 06/29/2018 9:35 AM Signed DEPARTMENT OF HOSPITAL MEDICINE PROGRESS NOTE SERVICE DATE: 06/29/2018 SERVICE TIME: 9:32 AM Hospital Medicine/Primary Attending: Braeden August MD NIGHT AND WEEKEND COVERAGE: Please page [phone] from 7 PM to 7 AM Subjective INTERVAL HPI: Reports feeling well. Denied fever and chills. No chest pain. MEDICATIONS: Reviewed Objective PHYSICAL EXAM: BP 163/75 Pulse 68 Temp (Src) 97.7 (Oral) Resp 18 Ht 5' 10" (1.78m) Wt 220 lb 12.8 oz (100.2kg) [...] 1645 vte non-pharmacologic prophylaxis - none indicated (ky,oh) VTE Prophylaxis: VTE prophylaxis appropriate Disposition: Home Plan of care discussed with: Patient SIGNATURE: Braeden August MD PATIENT NAME: Krystian Child DATE: June 29, 2018 TIME: 9:32 AM PAGER/CONTACT #: [phone] [phone] Zechariah Pedroza APRN.JEANNINE VAN.REHAN 06/30/2018 10:23 AM Signed CARDIOTHORACIC SURGERY PLAN [...] questions at this point. Zechariah Pedroza APRN.REHAN Tamayo RN, RN 06/30/2018 10:36 AM Signed CARE MANAGEMENT PROGRESS NOTE SERVICE DATE: 06/30/2018 SERVICE TIME: 10:35 AM LOS: 5 days Chart reviewed. Plan CABG. Anticipate home with [facility]- [facility] able to accept post op. Will follow. SIGNATURE: Keisha Tamayo RN PATIENT NAME: Krystian Child DATE: June 30, 2018 TIME: 10:35 AM PAGER/CONTACT #: [phone] Wallace Barrientos MD 06/30/2018 4:42 PM Signed INPATIENT PROGRESS NOTE CHIEF COMPLAINT: CP INTERVAL HPI: no new complaints. Scheduled for CABG in am. PHYSICAL EXAM: BP 145/63 Pulse 66 Temp (Src) 97.9 (Oral) Resp 18 Ht 5' 10" (1.78m) Wt 220 lb 12.8 oz (100.2kg) [...] as of this encounter: 177.8 cm (5' 10"). Weight as of this encounter: 98.9 kg [...] mL (PRECEDEX) 0.2-0.7 mcg/kg/hr INTRAVENOUS ONCE Oscar Hanna [JUL Hold due to Transfer] EPINEPHrine 4 mg in NaCl 0.9% 250 mL 0.5-10 mcg/min INTRAVENOUS ONCE Oscar Cyndi [JUL Hold due to Transfer] insulin regular iv infusion 100 units in NaCl 0.9% 100 mL - AK CARD SURG NOMOGRAM 0-12 Units/hr INTRAVENOUS ONCE [JUL Hold due to Transfer] nitroglycerin 100 mg in D5W 250 mL 5-20 mcg/min INTRAVENOUS ONCE [JUL Hold due to Transfer] NORepinephrine 16 mg in NaCl 0.9% 250 mL (LEVOPHED) 0-20 mcg/min INTRAVENOUS ONCE [JUL Hold due to Transfer] PHENYLephrine iv infusion 10 mg in NaCl 0.9% 250 mL (EMMA-SYNEPHRINE) 0-100 mcg/min INTRAVENOUS ONCE Oscar Cyndi [JUL Hold due to Transfer] dextrose 50 [...] tab(s) 3 mg ORAL HS PRN Braeden Sahuungwmj [JUL Hold due to Transfer] acetaminophen 650 mg tab(s) (TYLENOL) 650 mg ORAL q 6 H PRN Braeden Ofungwu [JUL Hold due to Transfer] docusate sodium 100 mg cap(s) (COLACE) 100 mg ORAL BID PRN Braeden Sahuungwu [JUL Hold due to Transfer] atorvastatin 80 mg tab(s) (LIPITOR) 80 mg ORAL AT BEDTIME Braeden Ofungwu 80 mg at 06/30/18 2142 [MAR Hold due to Transfer] metoprolol tartrate (short acting) 25 mg tab(s) (LOPRESSOR) 25 mg ORAL q 12 H Braeden Ofungwu 25 mg at 07/01/18 0530 [MAR Hold due to Transfer] enoxaparin 40 mg injection (LOVENOX) 40 mg SUBCUTANEOUS q 24 H Braeden Ofungwu 40 mg at 06/30/18 0923 [MAR Hold [...] - Distal L main disease, LAD, and SOLAR SALES REPRESENTATIVE of RCA GERD Recent Lab Values WBC [...] July 01, 2018 TIME: 7:00 AM CSN: [id number] TTE (06/26/2018) CONCLUSIONS: - Technically difficult exam due to Limited Subcostals. - Exam indication: Acute chest pain with suspected W[place] - The left ventricle is normal in [...] prior CC echocardiographic exam for comparison Normal [facility] MRSA Screenon 06-25-2018 MRSA DNA OJ+probe Ql (Unsp spec) Test performed at [facility] No MRSA detected. Normal [facility] Comment on above: Performed By: #### M RSA #### [place] [address] Culture, urine Bacteria identified Cx Nom (U) Citrobacter amalonaticus [facility] Work Phone: Vital Signs Date Time Vital Sign Value Performing Clinician Facility 03-16-2025 11:03-0400 Body height 178 cm Jorge Hyatt MD Work Phone: [facility] 03-16-2025 11:03-0400 Body height 177.8 cm Jorge Hyatt MD Work Phone: [facility] 03-16-2025 11:03-0400 Body mass index (BMI) [Ratio] 30.1 kg/m2 Jorge Hyatt MD Work Phone: [facility] 03-16-2025 11:03-0400 Body weight 95 kg Jorge Hyatt MD Work Phone: [facility] 03-16-2025 11:03-0400 Body weight 94.8 kg Jorge Hyatt MD Work Phone: [facility] 03-16-2025 11:03-0400 BP SITE #1 Jorge Hyatt MD Work Phone: [facility] 03-16-2025 11:03-0400 Diastolic blood pressure 77 mm[Hg] Jorge Hyatt MD Work Phone: [facility] 03-16-2025 11:03-0400 HGHTCHNVIS Jorge Hyatt MD Work Phone: [facility] 03-16-2025 11:03-0400 Systolic blood pressure 154 mm[Hg] Jorge Hyatt MD Work Phone: [facility] 03-16-2025 11:03-0400 VITALSDONE Jorge Hyatt MD Work Phone: [facility] 02-16-2025 10:51-0400 Body height 178 cm Jorge Hyatt MD Work Phone: [facility] 02-16-2025 10:51-0400 Body height 177.8 cm Jorge Hyatt MD Work Phone: [facility] 02-16-2025 10:51-0400 Body mass index (BMI) [Ratio] 29.52 kg/m2 Jorge Hyatt MD Work Phone: [facility] 02-16-2025 10:51-0400 Body weight 93 kg Jorge Hyatt MD Work Phone: [facility] 02-16-2025 10:51-0400 Body weight 92.99 kg Jorge Hyatt MD Work Phone: [facility] 02-16-2025 10:51-0400 BP SITE #1 Jorge Hyatt MD Work Phone: [facility] 02-16-2025 10:51-0400 BP SITE #2 Jorge Hyatt MD Work Phone: [facility] 02-16-2025 10:51-0400 Diastolic blood pressure 77 mm[Hg] Jorge Hyatt MD Work Phone: [facility] 02-16-2025 10:51-0400 Diastolic blood pressure 81 mm[Hg] Jorge Hyatt MD Work Phone: [facility] 02-16-2025 10:51-0400 Heart rate 55 /min Jorge Hyatt MD Work Phone: [facility] 02-16-2025 10:51-0400 HGHTCHNVIS Jorge Hyatt MD Work Phone: [facility] 02-16-2025 10:51-0400 Systolic blood pressure 172 mm[Hg] Jorge Hyatt MD Work Phone: [facility] 02-16-2025 10:51-0400 Systolic blood pressure 169 mm[Hg] Jorge Hyatt MD Work Phone: [facility] 02-16-2025 10:51-0400 VITALSDONE Jorge Hyatt MD Work Phone: [facility] 10-05-2024 14:43-0400 Body height 177.[address] Ligia Mcrae DO Work Phone: [facility] 10-05-2024 14:43-0400 Body mass index (BMI) [Ratio] 29.5 kg/m2 Dr. Ligia Mcrae DO Work Phone: [facility] 10-05-2024 14:43-0400 Body temperature 98.7 [degF] Dr. Ligia Mcrae DO Work Phone: [facility] 10-05-2024 14:43-0400 Body weight 93.[address] Ligia Mcrae DO Work Phone: [facility] 10-05-2024 14:43-0400 Diastolic blood pressure 77 mm[Hg] Dr. Ligia Mcrae DO Work Phone: [facility] 10-05-2024 14:43-0400 Heart rate 58 /min Dr. Ligia Mcrae DO Work Phone: [facility] 10-05-2024 14:43-0400 Respiratory rate 18 /min Dr. Ligia Mcrae DO Work Phone: [facility] 10-05-2024 14:43-0400 SaO2% (BldA) [Mass fraction] 94 % Dr. Ligia Mcrae DO Work Phone: [facility] 10-05-2024 14:43-0400 Systolic blood pressure 157 mm[Hg] Dr. Ligia Mcrae DO Work Phone: [facility] 03-16-2023 10:27-0400 Body height 177.[address] Ligia Mcrae Work Phone: [facility] 03-16-2023 10:27-0400 Body mass index (BMI) [Ratio] 31.1 kg/m2 Dr. Ligia Mcrae Work Phone: [facility] 03-16-2023 10:27-0400 Body weight 98.[address] Ligia Mcrae Work Phone: [facility] 03-16-2023 10:27-0400 Diastolic blood pressure 78 mm[Hg] Dr. Ligia Mcrae Work Phone: [facility] 03-16-2023 10:27-0400 Heart rate 56 /min Dr. Ligia Mcrae Work Phone: [facility] 03-16-2023 10:27-0400 Respiratory rate 14 /min Dr. Ligia Mcrae Work Phone: [facility] 03-16-2023 10:27-0400 Systolic blood pressure 169 mm[Hg] Dr. Ligia Mcrae Work Phone: [facility] 02-05-2022 09:01-0400 Body height 179.[address] Ligia Mcrae Work Phone: [facility] Work Phone: 02-05-2022 09:01-0400 Body mass index (BMI) [Ratio] 31.1 kg/m2 Dr. Ligia Mcrae Work Phone: [facility] Work Phone: 02-05-2022 09:01-0400 Body weight 99.[address] Ligia Mcrae Work Phone: [facility] Work Phone: 10-09-2021 13:24-0400 Body height 179.[address] Ligia Mcrae Work Phone: [facility] Work Phone: 10-09-2021 13:24-0400 Body mass index (BMI) [Ratio] 30.7 kg/m2 Dr. Ligia Mcrae Work Phone: [facility] Work Phone: 10-09-2021 13:24-0400 Body temperature 98.7 [degF] Dr. Ligia Mcrae Work Phone: [facility] Work Phone: 10-09-2021 13:24-0400 Body weight 98.[address] Ligia Mcrae Work Phone: [facility] Work Phone: 10-09-2021 13:24-0400 Diastolic blood pressure 76 mm[Hg] Dr. Ligia Mcrae Work Phone: [facility] Work Phone: 10-09-2021 13:24-0400 Heart rate 66 /min Dr. Ligia Mcrae Work Phone: [facility] Work Phone: 10-09-2021 13:24-0400 Respiratory rate 15 /min Dr. Ligia Mcrae Work Phone: [facility] Work Phone: 10-09-2021 13:24-0400 SaO2% (BldA) [Mass fraction] 93 % Dr. Ligia Mcrae Work Phone: [facility] Work Phone: 10-09-2021 13:24-0400 Systolic blood pressure 151 mm[Hg] Dr. Ligia Mcrae Work Phone: [facility] Work Phone: 10-12-2019 12:59-0400 Body mass index (BMI) [Ratio] 26.8 kg/m2 Dr. Ligia Mcrae Work Phone: [facility] 10-12-2019 12:59-0400 Body temperature 97.7 [degF] Dr. Ligia Mcrae Work Phone: [facility] 10-12-2019 12:59-0400 Body weight 84.[address] Ligia Mcrae Work Phone: [facility] Work Phone: 10-12-2019 12:59-0400 Diastolic blood pressure 79 mm[Hg] Dr. Ligia Mcrae Work Phone: [facility] 10-12-2019 12:59-0400 Heart rate 62 /min Dr. Ligia Mcrae Work Phone: [facility] 10-12-2019 12:59-0400 Respiratory rate 16 /min Dr. Ligia Mcrae Work Phone: [facility] 10-12-2019 12:59-0400 SaO2% (BldA) [Mass fraction] 96 % Dr. Ligia Mcrae Work Phone: [facility] 10-12-2019 12:59-0400 Systolic blood pressure 144 mm[Hg] Dr. Ligia Mcrae Work Phone: [facility] 07-01-2018 15:24-0500 Body temperature 37.0 [facility] Comment on above: Performed By: #### P14 #### [place] [address] Encounters Encounter Date Encounter Type Care Provider Facility Start: 04-06-2025 ambulatory Ligia Mcrae Facility: [facility] Start: 04-03-2025 ambulatory Ligia Jamila Facility: [facility] Start: 03-30-2025 Encounter for other preprocedural examination Carlos Demiter [facility] Start: 03-24-2025 End: 03-24-2025 ambulatory Ligia [facility] Facility:[facility] Start: 03-24-2025 End: 03-24-2025 ambulatory [facility] Facility[facility] Start: 03-16-2025 Visit out of hours Jorge duarte MD Work Phone: [employer] Work Phone: Start: 03-16-2025 In-person encounter Jorge orta MD Work Phone: [facility] Work Phone: Start: 02-24-2025 End: 02-24-[address] Ligia Mcrae DO Work Phone: -Physical Therapy Start: 02-24-2025 End: 02-24-[address] Jorge Hyatt MD -Physical Therapy Work Phone: Start: 02-17-2025 Visit out of hours Jorge duarte MD Work Phone: [employer] Work Phone: Start: 02-17-[address] Jorge Hyatt MD -Physical Therapy Work Phone: Start: 02-16-2025 In-person encounter Jorge orta MD Work Phone: [facility] Work Phone: Start: 02-02-2025 End: 02-02-[address] Ligia Mcrae DO Work Phone: [facility] Start: 02-02-2025 End: 02-02-[address] Ligia Mcrae DO [facility] Work Phone: Start: 02-02-2025 End: 02-02-2025 ambulatory Ligia Jaimla Facility:[facility] Start: 11-23-2024 End: 11-23-[address] Ligia Mcrae DO Work Phone: -Laboratory Specimen Start: 11-23-2024 End: 11-23-[address] Ligia Mcrae DO -Laboratory Specimen Work Phone: Start: 11-23-2024 End: 11-23-2024 ambulatory Ligia Mcrae Facility:[facility] Start: 10-05-2024 End: 10-05-[address] Oscar Winkler MD -[facility] Work Phone: Start: 10-05-2024 End: 10-05-[address] Ligia Mcrae DO Work Phone: [facility] Work Phone: Start: 09-22-2024 ambulatory Ligia [facility] Facility: [facility] Start: 09-22-[address] Oscar Winkler MD -[facility] Start: 04-22-2023 Non-patient / Non-visit Dr. Anca Mcrae Work Phone: [facility] Work Phone: Start: 04-21-2023 Non-patient / Non-visit Dr. Anca Mcrae Work Phone: [facility] Work Phone: Start: 04-20-2023 Non-patient / Non-visit Dr. Anca Mcrae Work Phone: [facility] Work Phone: Start: 04-20-2023 Non-patient / Non-visit Dr. Anca Mcrae Work Phone: [facility] Start: 04-20-2023 End: 04-20-[address] Ligia Mcrae Work Phone: [facility] Work Phone: Start: 04-20-2023 End: 04-20-[address] [facility] Work Phone: Start: 03-16-2023 End: 03-16-[address] Ligia Mcrae Work Phone: [facility] Work Phone: Start: 07-31-2022 End: 07-31-2022 ambulatory [facility] Work Phone: Start: 07-31-2022 End: 07-31-2022 Patient encounter procedure [facility] Start: 07-10-2022 End: 07-10-2022 ambulatory [facility] Work Phone: Start: 07-10-2022 End: 07-10-2022 Patient encounter procedure [facility] Start: 03-06-2022 End: 03-06-[address] Ligia Mcrae Work Phone: [facility] Start: 02-24-2022 End: 02-24-[address] Ligia Mcrae Work Phone: [facility] Work Phone: Start: 02-24-2022 End: 02-24-[address] Ligia Mcrae Work Phone: [facility] Start: 02-19-2022 End: 02-19-[address] Ligia Mcrae Work Phone: [facility] Work Phone: Start: 02-19-2022 End: 02-19-[address] Ligia Mcrae Work Phone: [facility]-Laboratory, Specimen Start: 02-05-2022 End: 02-05-[address] Ligia Mcrae Work Phone: [facility] Start: 01-18-2022 End: 01-18-[address] Ligia Mcrae Work Phone: [facility] Work Phone: Start: 01-18-2022 End: 01-18-[address] Ligia Mcrae Work Phone: [facility] Start: 11-05-2021 End: 11-05-[address] Lig[facility] Mcrae [facility] Start: 10-09-2021 End: 10-09-[address] Ligia Mcrae Work Phone: [facility] Start: 09-30-[address] Ligia Mcrae Work Phone: [facility] Start: 08-10-2018 End: 08-10-2018 Patient encounter procedure ORLANDO JACOBS [facility] Start: 07-13-2018 End: 07-13-2018 Patient encounter procedure ORLANDO (YUMIKO JACOBS [facility] Start: 06-25-2018 End: 07-06-2018 Evaluation and management of inpatient BRAEDEN AUGUST [facility] Procedures Date Procedure Procedure Detail [...] anticardiolipin andbeta-2 glycoprotein 1 antibody testing.Performed at: [address] [id number] Director: Kim Brito MD, Phone: [phone] Start: 09-22-2024 Lupus anticoagulant assay, platelet neutralization [...] above: Performed By: #### P 14 #### [place] [address] Ligia Whiting magaly Work Phone: Viral antigen assay Plan of Treatment Date Care Activity Detail Author Start: 03-06-2022 Patient referral [facility] Work Phone: Patient referral [facility] Work Phone: Payers Date Payer Category Payer Medicare [id number] 2019 Self-pay [id number] 1945 Unknown [id number] 2.16.8 [id number] 1945 Unknown [id number] 2.16.8 [id number] 1945 Unknown [id number] 2.16.8 [id number] Unknown [id number] 2.16.8 [id number] Unknown [id number] 2.16.8 [id number] Unknown [id number] 2.16.8 40.1.671600.3.579.2.462 Unknown [id number] 2.16.8 40.1.175444.3.579.2.462 Unknown [id number] 2.16.8 40.1.583627.3.579.2.462 Unknown [id number] 2.16.8 40.1.954689.3.579.2.462 Unknown [id number] 2.16.8 40.1.702309.3.579.2.462 Unknown [id number] 2.16.8 40.1.136758.3.579.2.462 Unknown [id number] 2.16.8 [id number] Social History Date Type Detail Facility Start: 11-22-2020 End: 03-16-2023 Tobacco smoking status RUST Unknown if ever smoked [facility] Start: 02-17-2019 None [facility] Start: 02-17-2019 Spouse/ Signif icant Other [facility] Start: 02-17-2019 Non-smoker [facility] Start: 1945 Sex Assigned At Male [facility] Start: 03-16-2023 Tobacco smoking status NHIS Ex-smoker (finding) [facility] Start: 02-16-2025 End: 03-16-2025 social history reviewed E&M Done [facility] Start: 02-16-2025 Tobacco smoking status Never smoked any substance (finding) [facility] Work Phone: Mental Status Date Assessment Result Facility 02-16-2025 Cognitive Function [facility] Work Phone: Clinical Notes 07-01-2018 to 02-24-2025 Note Date & Type Note Facility 02-24-2025 Discharge summary Note Date/Time February 24, 2025 7: 00pm [facility] [address] [place] [address] / REHABILITATION SERVICES DISCHARGE SUMMARY MR#: [id number] Acct: [id number] Name: KRYSTIAN CHILD Rep #: [id number] : 1945 79 From: Cert. ROJELIO Schulz, OCS Referring Dr.: Dr. Jorge Hyatt MD Status: REG R Insurance: [facility] 03/25/18 SELF PAY INSURANCE Discharge Summary [...] please feel free to call me at [phone]. Thank you for the referral of thispatient. Sincerely, William Hayden PT, Cert MDT, OCS Balance/Gait/Functional tests Balance/Special Test Scores Oswestry Low Back Score: 18 <Electronically signed by Jl Bedoya PT. ROJELIO, OCS> 02/27/25 4037 CC: Dr. Jorge Hyatt MD; Dr. Ligia Mcrae, DO ~ JLCyndi Signed [facility] Work Phone: 1(680) 824-781910-03-2025 Discharge summary [facility] [address] [place] [address] / REHABILITATION SERVICES DISCHARGE SUMMARY MR#: [id number] Acct: [id number] Name: KRYSTIAN CHILD Rep #: [id number] : 1945 79 From: Jl Schulz. T, OCS Referring Dr.: Dr. Jorge Hyatt MD Status: REG RCR Insurance[facility] 03/25/18 SELF PAY INSURANCE Discharge Summary [...] please feel free to call me at [phone]. Thank you for the referral of thispatient. Sincerely, William Hayden, PT, Cert MDT, OCS Balance/Gait/Functional tests Balance/Special Test Scores Oswestry Low Back Score: 18 02/27/25 1137 CC: Dr. Jorge Hyatt MD; Dr. Ligia Mcrae, DO ~ JLA Signed [facility]05-14-[address] [facility] [address] [place] [address] OFFICE VISIT Date of Service: 10/05/24 1443 MR#: [id number] Acct: [id number] Name: KRYSTIAN CHILD Rep #: [id number] : 1945 From: Oscar Winkler MD Age/Sex: 78/M Location: [facility] Status: Signed HPI Subjective Date of Service 10/05/24 Chief Complaint F/u for lupus anticoagulant positivity. History of Present Illness 78y.o.man was admitted in January 2019 at [facility] for pneumonia. He also had Rmiddle lobe density. CT chest in March 2019 was normal. He was found to have abnormal/increase PTT which has persisted since that admission so was referred for evaluation. He denied bleeding gums,clotting, bleeding into soft tissue, joint bleeding or family history of bleeding. He is on observation. Had repeat blood work and comes for follow up. [facility] Medical History (Updated 10/05/24 @ 15:[address] 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 Ligia Mcrae, DO ~ [facility]05-14-2025 Progress note Author Oscar Winkler [facility] Note Date/Time October 05, 2024 3:12p m [facility] [address] [address] OFFICE VISIT Date of Service: 10/05/24 1443 MR#: [id number] Acct: [id number] Name: KRYSTIAN CHILD Rep #: [id number] : 1945 From: Oscar Winkler MD Age/Sex: 78/M [place] [facility] Status: Signed HPI Subjective Date of Service 10/05/24 Chief Complaint F/u for lupus anticoagulant positivity. History of Present Illness 78y.o.man was admitted in January 2019 at [facility] for pneumonia. He also had R middle lobe density. CT chest in March 2019 was normal. He was found to have abnormal/increase PTT which has persisted since that admission so was referred for evaluation. He denied bleeding gums, clotting, bleeding into soft tissue, joint bleeding or family history of bleeding. He is on observation. Had repeat blood work and comes for follow up. [facility] Medical History (Updated 10/05/24 @ 15:[address] 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 Ligia Mcrae, DO ~ [facility] Work Phone: 1(701) 474-534005-01-2025 Evaluation note* Diagnosis Onset Date Resolution Status Admit Date Abnormal coagulation profile chronic September 22, 2024 2:30pm Lung mass chronic September 22, 2024 2:30pm Lupus anticoagulant positive chronic September 22, 2024 2:30pm Lupus anticoagulant positive chronic October 05, 2024 2:38pm [facility] Work Phone: 1(215) 725-807702-18-2021 NotePatient Outreach ([facility]OVAMN) KRYSTIAN CHILD ([id number]) 1945 M NFR Date Time Provider Department 07/12/20 DAVID SIGALA During your visit today, we recorded the following information about you: Allergies As of Date: 07/12/2020 (No Known Allergies) Date Reviewed: 08/10/2018 Reviewed by: Carley Concepcion) Tess - Fully Assessed Order(s):SARS-COVID VACCINE 1ST DOSE APPT [22568IIO] Order #: [id number] FUTURE Prescriptions as of 07/12/2020 Sig: ACETAMINOPHEN [...] x 4 [Z95.1] 07/03/2018 Encounter Status:Closed by Ujogo, PRODUSER on 07/16/20[facility] 07-01-2018 Evaluation note* Diagnosis Onset Date Resolution Status Essential (primary) hypertension chronic H/O coronary artery bypass surgery July 01, 2018 chronic Hyperlipidemia chronic [facility] Work Phone: Evaluation note* Diagnosis Onset Date Resolution Status Abnormal coagulation profile chronic Lung mass chronic 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 [facility] Work Phone: Evaluation note* Diagnosis Onset Date Resolution Status Back pain acute 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 Spinal stenosis of lumbosacral region acute Low back pain noneactive [facility] Work Phone: Evaluation note* Diagnosis Onset Date Resolution Status Back pain acute 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 Spinal stenosis of lumbosacral region acute Low back pain noneactive Spinal stenosis of lumbosacral region acute [facility] Work Phone: Evaluation noteNo assessment information available [facility] Work Phone: Hospital Discharge instructionsAmbulatory Orders* Pain Management Location: None Selected [facility] Work Phone: Reason for referral (narrative)No reason for [facility] Work Phone: Summary Purpose Family [...] November 22, 2020 1 :42pm Power of Tubing Oiler Yes November 22, 2020 1:42pm Advance Directive Response Recorded Date/ Time Advance Directives No June 9:04am Living Will Yes November 22, 2020 1 2:42pm Power of Tubing Oiler Yes November 22, 2020 12:42pm Advance Directive Response Recorded Date/ Time Living Will Yes February 17, 2019 12:23pm Do you have a Healthcare Power of Tubing Oiler? Yes February 17, 2019 12:23pm Advance Directives No June 10:04am Advance Directive Response Recorded Date/ Time Advance Directives No June 10:04am Hospital Course Note HNO ID: [id number] Author: Jayleen Jacobs Service: Cardiac Surgery Author [...] section and content) DATE CREATED AUTHOR 08/10/2018 [facility] DATE CREATED AUTHOR AUTHOR'S ORGANIZ ATION 08/10/2018 [facility] DATE CREATED AUTHOR AUTHOR'S ORGANIZ ATION 07/05/2021 [facility] DATE CREATED AUTHOR AUTHOR'S ORGANIZ ATION 04/04/2025 [facility] Goals (unrecognized section and content) Goals [...] DO Primary Care Provider Active Abe Lazo PUBLIC RELATIONS SUPERVISOR, PUBLIC RELATIONS SUPERVISOR-C Attending Provider Active Team Status: Inactive Member Role Status Dates Dr. Ligia Mcrae DO Primary Care Provider Active Dr. Cihn Stubbs MD Attending Provider, Referring Pro vider [...] 24, 2025 End: February 24, 2025 Dr. oJrge Hyatt MD Referring Provider Active Start: February [...] BE BASED ON THE PRIMARY CLINICAL RECORDS. [facility] [employer], [facility]. provides no warranty or guarantee of the accuracy or completeness of information in this document.
--- NOTE | 2025-04-07 17:45 | STRESSREP ---
Stress Test Report Pharmacologic myocardial perfusion stress test. 79-year-old male with a history of preop evaluation. Resting EKG demonstrates normal sinus rhythm with a rate of 60 bpm. Resting blood pressure is 162/78 mmHg. 0.4 mg of regadenoson was infused per usual protocol followed by rapid intravenous saline flush injection. Continuous EKG monitoring was performed. The maximum heart rate was 78 bpm which was 56% of max impacted heart rate the maximum workload was 1 metabolic equivalent. At rest there were no ST or T wave changes noted to suggest ischemia and at peak infusion nonspecific ST changes were noted which did not meet the criteria for ischemia. No clinical angina is noted. The final blood pressure was 148/60 mmHg. Myocardial perfusion protocol. 14.2 mCi of technetium 99m sestamibi was injected at rest. 0.4 mg of regadenoson was infused per usual protocol. At peak infusion 44.5 mCi of technetium 99m sestamibi was injected stress images were obtained stress and rest images were reconstructed and compared in the short axis vertical long and horizontal long axis. Gated images were also obtained. Perfusion SPECT analysis: Review of the stress images demonstrate normal uptake of tracer noted in all areas of the myocardium. The resting images similar demonstrated normal uptake of tracer noted in all areas of the myocardium. No areas of reversibility are noted to suggest ischemia and no previous infarct is noted. Gated SPECT analysis: The gated ejection fraction is 62%. Conclusion: Normal pharmacologic myocardial perfusion stress test. Preserved ejection fraction.
== END | disposition home or self-care (01) ==
LOC: CVS 06:05
PROVIDERS: PCP Family Medicine; Referring Provider Student in an Organized Health Care Education/Training Program; Visit Provider Student in an Organized Health Care Education/Training Program
DX: Z01.818 Encounter for other preprocedural examination (principal); I25.10 Atherosclerotic heart disease of native coronary artery without angina pectoris
CPT/HCPCS: 78452; 93017; A9500; A4216; J2785